=== PATIENT | male | born 1940 | race Caucasian/White ===

== ENCOUNTER → 2017-06-08 15:25 | Outpatient (CLI) | payer MEDICARE, OTHER, SELFPAY ==
--- NOTE | 2017-06-08 15:35 | RAD_ITS ---
STUDY: X-RAY - ABDOMEN/PELVIS REASON FOR EXAM: Male, 76 years old. Kidney stone. TECHNIQUE: Single AP view of the abdomen / pelvis. COMPARISON: None. FINDINGS: Cannot exclude small renal stones because of overlying fecal material, but no definite kidney stones are seen. Degenerative changes throughout the bones. Normal bowel gas pattern. Tortuous aorta with calcified plaque. RAD/Abdomen Single View IMPRESSION: No definite renal stones but small stones could be missed because of overlying fecal material and gas. Electronically Signed: Atif Brice MD at 14:24 EST , Service support ,
== END ==
PROVIDERS: Family Provider Family Medicine; PCP Family Medicine; Visit Provider Urology
DX: N20.0 Calculus of kidney (principal)
CPT/HCPCS: 74018

== ENCOUNTER 2017-06-18 12:44 | Emergency (ER) | payer MEDICARE, OTHER, SELFPAY ==
[2017-06-18 12:45] VITALS: BP 148/89; PULSE 87; RESP 16; TEMP 36.4; O2SAT 99; BMI 24.8
[2017-06-18] MEDS: Oxymetazoline 0.05% 1 SPRAY SPRAY.BTL 2 SPRAY NASAL (13:30)
--- NOTE | 2017-06-18 14:16 | ED.VISSUMM ---
- ER Visit Summary Date of Service: 06/18/17 Chief Complaint: [] Nosebleed History of Present Illness: The patient is a 76 M [] complaining of epistaxis beginning 1 hour ago. He reports 2 weeks of intermittent nosebleeds for unknown etiology. Does report he is on Coumadin for atrial fibrillation. No other complaints at this time. He reports losing minimal blood prior to arrival. Physical Examination: [] Afebrile, vital signs stable. Well-appearing elderly male in no acute distress. Cardiovascular exam reveals regular rate. Lungs were auscultation. Abdomen is soft and nontender. HEENT exam reveals slight dry blood in the right nares. Left nares unremarkable. Remainder of exam is unremarkable. Test Results: [] None. Emergency Department Course and Treatment: [] Patient had Afrin nasal packing applied immediately upon arrival. This was removed 15 minutes later. Patient was able to blow his nose without any further bleeding. He was observed for an additional hour with no further bleeding. At this time he will be discharged to follow-up with his primary care physician. Treatment Plan: [] Follow-up with PCP. Disposition: [] Discharge, stable. Impression: [] Epistaxis This note was generated with [employer] dictation software. It may contain incorrect words, spelling, and punctuation that were not noted in review of the chart prior to signing ED Disposition - Plan for ED Patient: Chief Complaint: Nosebleed Referrals: Apollo Arango MD [Primary Care Provider] -
--- NOTE | 2017-06-18 14:18 | ED.DEP ---
ED Disposition - Plan for ED Patient: Disposition: Home or Assisted Living Chief Complaint: Nosebleed Instructions: Nosebleed Referrals: Apollo Arango MD [Primary Care Provider] -
[2017-06-18 14:32] VITALS: BP 123/83; PULSE 76; RESP 16
== END 2017-06-18 14:33 | disposition home or self-care (01) ==
PROVIDERS: Emergency Provider Emergency Medicine; Family Provider Family Medicine; PCP Family Medicine
DX: R04.0 Epistaxis (principal); I25.10 Atherosclerotic heart disease of native coronary artery without angina pectoris; I48.91 Unspecified atrial fibrillation; Z79.01 Long term (current) use of anticoagulants; Z72.0 Tobacco use; Z87.442 Personal history of urinary calculi
CPT/HCPCS: 30901; 99282

== ENCOUNTER 2017-06-19 09:29 | Emergency (ER) | payer MEDICARE, OTHER, SELFPAY ==
[2017-06-19 09:30] VITALS: BP 124/71; PULSE 92; RESP 19; TEMP 36.1; BMI 24.3
--- NOTE | 2017-06-19 09:44 | ED.VISSUMM ---
- ER Visit Summary Date of Service: 06/19/17 Chief Complaint: Nosebleed History of Present Illness: The patient is a 76 M on Coumadin for atrial fibrillation who presents with epistaxis for 2 hours. Patient has been having intermittent epistaxis, mainly from the right nostril for the last 2 weeks. He was seen yesterday for the same complaint after 1 hour of bleeding. He required no packing or intervention yesterday, as the bleeding had stopped spontaneously. Patient had checked his INR at home yesterday and it was 2.7. His bleeding began this morning 2 hours prior to presentation. He denies any coughing, sneezing, picking his nose, blowing his nose, or other inciting factors. Upon questioning later, patient does think he may have blown his nose in retrospect. He does complain of some associated nausea and feels like he has been swallowing clots. Denies dizziness or lightheadedness. No shortness of breath or chest pain. Physical Examination: Vital signs: afebrile, hemodynamically stable, no hypoxia on room air General: well nourished, well developed, in no distress Skin: warm, dry, no rash, no pallor HEENT: normocephalic and atraumatic; PERRL, EOMI, moist mucous membranes the posterior oropharynx shows blood coming from the nasopharynx, patient has bilateral packing in his nostrils with small amount of blood soaked into them Cardiovascular: regular rate and rhythm without murmurs, no peripheral edema, 2+ pulses all distal extremities Test Results: [] Emergency Department Course and Treatment: Patient initially had denied any inciting factors for his bleeding, but then does think he blew his nose, and states he frequently blows his nose. INR was checked and was 2.3. Packing was removed and showed no active bleeding. No specific site of bleeding or clot was noted. Patient had no active bleeding noted in the posterior oropharynx once he swallowed the current blood that was visible. Bilateral nostrils were packed with cotton balls soaked in Afrin and lidocaine. Nose clamp was placed for 20 minutes. Reevaluation, no further bleeding was noted, and patient was given water to drink and to rinse his posterior oropharynx with. He had no further blood noted. However after drinking water, patient choked on the last drink which caused mild oozing of blood. He was reevaluated and there was mild oozing of blood from the superior region of the right nostril, although no specific area was identified as the source. There was no posterior hemorrhage noted. Because of the continued bleeding anytime he has any coughing, sneezing, choking or blowing his nose and that is on Coumadin, anterior packing was placed. Patient is to keep it in place until Wednesday at which time he is to follow-up with his doctor to have it removed. Patient stated tomorrow he will stop taking his Coumadin because of a procedure this being done this week. Patient will return if any return of bleeding that he cannot control with direct pressure after 30 minutes, at which time we discussed he may require posterior packing and admission. Patient agreed with this plan and was discharged with the packing in place. No antibiotics were written. Treatment Plan: [] Disposition: [] Impression: Right epistaxis inpatient on Coumadin This note was generated with [employer] dictation software. It may contain incorrect words, spelling, and punctuation that were not noted in review of the chart prior to signing ED Disposition - Plan for ED Patient: Disposition: Home or Assisted Living Chief Complaint: Nosebleed Instructions: Nosebleed, ED Nasal Packing Anterior Removable Referrals: Apollo Arango MD [Primary Care Provider] - 2 Days Additional Instructions: We attempted to stop your nosebleed using medications and temporary pressure/packing. Because the bleeding continued, nasal packing has been placed. Please leave this in place until Wednesday and follow-up with your doctor for reexamination and to have it removed. You were not prescribed antibiotics. If you are unable to see your doctor on Wednesday, you may follow-up with your ear nose throat doctor or return to the emergency department for removal of the packing. If you have any further thickened bleeding that is not controlled with pressure on your nose, these return to the emergency department immediately for another evaluation and treatment. You may have small amount of dripping of bloody fluid, which is normal since the packing is soaked in water. If you have any further concerns or worsening of your condition, please return immediately for another evaluation.
[2017-06-19 10:19] LABS: Hematocrit 43.3 % (40-54); Hemoglobin 13.9 g/dl (13.0-16.5); Mean Corp Hgb Conc 32.1 g/gl (32-36); Mean Corpuscular Hgb 29.9 pg (27.0-32.0); Mean Corpuscular Volume 93.1 fL (80-94); Mean Platelet Vol. 11.5 fl (6.2-12.0); Platelet Count 138 K/mm3 (150-450); RBC Distribution Width CV 15.5 % (11.6-14.6); RBC Distribution Width SD 51.7 fl (35.1-43.9); Red Blood Count 4.65 M/mm3 (4.6-6.2); Scan Indicated on CBC? Y/N NO; White Blood Count 10.9 K/mm3 (4.4-11.0)
[2017-06-19 10:25] LABS: International Normalized Ratio 2.3; Prothrombin Time (Protime)PT. 25.7 SECONDS (11.7-14.9)
--- NOTE | 2017-06-19 11:26 | DCINST.ED_ITS ---
ED Disposition - Plan for ED Patient: Disposition: Home or Assisted Living Chief Complaint: Nosebleed Instructions: Nosebleed, ED Nasal Packing Anterior Removable Referrals: Apollo Arango MD [Primary Care Provider] - 2 Days Additional Instructions: We attempted to stop your nosebleed using medications and temporary pressure/ packing. Because the bleeding continued, nasal packing has been placed. Please leave this in place until Wednesday and follow-up with your doctor for reexamination and to have it removed. You were not prescribed antibiotics. If you are unable to see your doctor on Wednesday, you may follow-up with your ear nose throat doctor or return to the emergency department for removal of the packing. If you have any further thickened bleeding that is not controlled with pressure on your nose, these return to the emergency department immediately for another evaluation and treatment. You may have small amount of dripping of bloody fluid, which is normal since the packing is soaked in water. If you have any further concerns or worsening of your condition, please return immediately for another evaluation.
--- NOTE | 2017-06-19 11:49 | NURSING ---
PT SAT UP TO BEDSIDE AND INITIALLY C/O DIZZINESS WHEN FIRST CAME IN. NO CHANGE IN BP OR HR. WATER GIVEN AND DC INSTUCTIONS AND PT DENIES ANY DIZZINESS NOW. AMB TO BR WITH STEADY GAIT AND STANDBY ASSISTANCE. MIN WELL. NO FURTHER BLEEDING. INSISTED THAT PT TAKE WC OUT FOR DC. ESCORTED TO ER ENTRANCE PER SAFETY ADMINISTRATOR
[2017-06-19 11:52] VITALS: BP 138/92; PULSE 74; RESP 18; O2SAT 95
== END 2017-06-19 11:53 | disposition home or self-care (01) ==
PROVIDERS: Emergency Provider Emergency Medicine; Family Provider Family Medicine; PCP Family Medicine
DX: R04.0 Epistaxis (principal); T45.515A Adverse effect of anticoagulants, initial encounter; Y92.9 Unspecified place or not applicable; I48.91 Unspecified atrial fibrillation; I10 Essential (primary) hypertension; Z79.01 Long term (current) use of anticoagulants; Z79.82 Long term (current) use of aspirin; Z79.899 Other long term (current) drug therapy
CPT/HCPCS: 30901; 36415; 85027; 85610; 99283

== ENCOUNTER 2017-06-22 16:42 | Emergency (ER) | payer MEDICARE, OTHER, SELFPAY ==
[2017-06-22 16:43] VITALS: BP 146/92; PULSE 79; RESP 16; TEMP 36.9; O2SAT 95; BMI 25.1
--- NOTE | 2017-06-22 18:12 | NURSING ---
DR WATERS PAGED
--- NOTE | 2017-06-22 18:27 | ED.VISSUMM ---
- ER Visit Summary Date of Service: 06/22/17 Chief Complaint: Spit out some blood-tinged saliva History of Present Illness: The patient is a 76 M recent nosebleeds for the last 3 weeks. Was on Coumadin and aspirin secondary to cardiac stents and A. fib. He had nasal packing in. From the emergency department on Wednesday. He was seen by Dr. Karishma Aguila today in the ENT office who then removed his packing. Reportedly caught him in a prescription but there was no prescription when he got to the pharmacy. He denies any nose bleeding today. Physical Examination: Signs are stable afebrile. H EENT exam nasal congestion bilaterally. Clear drainage. No blood in either naris. No active bleeding. No clots. Posterior pharynx there is very minimal blood-tinged drainage. But no active bleeding or clots. No trouble breathing or swallowing. Neck nontender. Lungs clear to auscultation. Heart regular rhythm. Abdomen soft nontender. Extremities unremarkable. Neurologic exam awake and alert. Test Results: Reviewed the patient's CBC and PT/INR from the other day. Emergency Department Course and Treatment: Spoke with Dr. Dalal and the patient be started on Zithromax Z-FRANK. Currently he is not actively bleeding. I do not think he needs to be repacked. Patient is comfortable with that plan. Treatment Plan: [] Disposition: dc Impression: Nosebleed resolved This note was generated with [employer] dictation software. It may contain incorrect words, spelling, and punctuation that were not noted in review of the chart prior to signing ED Disposition - Plan for ED Patient: Chief Complaint: Nosebleed Referrals: Apollo Arango MD [Primary Care Provider] -
--- NOTE | 2017-06-22 18:29 | ED.DEP ---
ED Disposition - Plan for ED Patient: Disposition: Home or Assisted Living Chief Complaint: Nosebleed Instructions: Nosebleed Prescriptions: Azithromycin [Zithromax Z-Reed] 250 mg PO UD #1 box Referrals: Apollo Arango MD [Primary Care Provider] - As Needed Additional Instructions: Return if nosebleed restarts. Or feeling worse.
[2017-06-22 19:47] VITALS: BP 133/75; PULSE 74; RESP 17; O2SAT 99
== END 2017-06-22 19:47 | disposition home or self-care (01) ==
PROVIDERS: Emergency Provider Emergency Medicine; Family Provider Family Medicine; PCP Family Medicine
DX: R04.0 Epistaxis (principal); I25.10 Atherosclerotic heart disease of native coronary artery without angina pectoris; I48.91 Unspecified atrial fibrillation; Z72.0 Tobacco use; Z79.01 Long term (current) use of anticoagulants; Z79.82 Long term (current) use of aspirin; Z79.899 Other long term (current) drug therapy; Z86.73 Personal history of transient ischemic attack (TIA), and cerebral infarction without residual deficits; Z85.828 Personal history of other malignant neoplasm of skin; Z95.5 Presence of coronary angioplasty implant and graft
CPT/HCPCS: 99282

== ENCOUNTER 2017-06-25 12:47 | Day surgery (SDC) | payer MEDICARE, OTHER, SELFPAY ==
[2017-06-23 10:13] VITALS: BP 113/73; PULSE 74; RESP 16; TEMP 36.7; O2SAT 95; BMI 24.5
--- NOTE | 2017-06-25 12:15 | RAD_ITS ---
STUDY: X-RAY - ABDOMEN/PELVIS REASON FOR EXAM: Male, 76 years old. Left-sided kidney stones. TECHNIQUE: Two AP supine views of the abdomen and pelvis. COMPARISON: Comparison is made with prior study dated June 08, 2017. FINDINGS: There is a moderate amount of colonic fecal material. There is evidence of a 5.8 mm calculus in the lower pole calyx of the left kidney. Atherosclerotic calcification of the abdominal aorta. There are diffuse degenerative changes of the visualized lumbar spine. RAD/Abdomen Single View IMPRESSION: 5.8 mm calculus in the lower pole calyx of the left kidney. Electronically Signed: Stef Carlton MD at 13:07 EST Tel [phone], Service support ,
[2017-06-25 13:08] VITALS: BP 88/54; PULSE 58; RESP 16; TEMP 36.6; O2SAT 100; BMI 24.5
[2017-06-25 13:11] LABS: Prothrombin Time Fingerstick 13.2 SEC (11.9-14.4)
[2017-06-25] MEDS: Ciprofloxacin 400 MG/200 ML BAG 200 MG IV (15:09)
--- NOTE | 2017-06-25 15:55 | PCM.DC.URO ---
Discharge Diet: Light diet - advance as tolerated Discharge Activity: Return to Normal Activity Call your doctor if your incision/area has: Continuous Slow Oozing, Sudden Increased Bleeding, Increased Pain/ Swelling, Increased Redness, Foul Smelling Discharge, Swelling at the incision site Allergies/Adverse Reactions: Allergies lactose Allergy (Severe, Verified 06/23/17 10:05) unknown Penicillins Allergy (Severe, Verified 06/23/17 10:05) Anaphylaxis adhesive Allergy (Verified 06/23/17 10:05) Rash Sulfa (Sulfonamide Antibiotics) Allergy (Verified 06/23/17 10:05) Unknown diazepam [From Valium] Adverse Reaction (Verified 06/23/17 10:05) hyper opposite effect desired HYPER OPPOSITE EFFECT DESIRED niacin [From Niaspan Extended-Release] Adverse Reaction (Verified 06/23/17 10:05) low bp LOW BP simvastatin Adverse Reaction (Verified 06/23/17 10:05) Pain in joints Medications to take at Discharge Acetaminophen/Diphenhydramine [Tylenol Pm Ex-Strength Caplet] 500 mg PO QHS 06/18/17 Amlodipine [Norvasc] 5 mg PO DAILY 06/18/17 Aspirin 81 mg PO DAILY 06/18/17 Atorvastatin Calcium [Lipitor] 40 mg PO QHS 06/18/17 Cholecalciferol (Vitamin D3) [Vitamin D3] 1 tab PO DAILY 06/18/17 Cyanocobalamin [Vitamin B12] 1 tab PO DAILY 06/18/17 Donepezil HCl 5 mg PO DAILY 06/18/17 Melatonin 10 mg PO QHS 06/18/17 Metoprolol Tartrate 25 mg PO BID 06/18/17 Omeprazole 20 mg PO DAILY 06/18/17 Pregabalin [Lyrica] 300 mg PO DAILY 06/18/17 Sertraline HCl [Zoloft] 50 mg PO BID 06/18/17 Vit A/Vit C/Vit E/Zinc/Copper [Preservision Areds Softgel] 1 each PO BID 06/18/17 Warfarin [Coumadin ([facility])] 2 - 2.5 mg PO DAILY 06/18/17 Azithromycin [Zithromax] 250 mg PO DAILY 06/23/17 Hydrocodone/Acetaminophen [Platina 5-325 Tablet] 1 ea PO Q4H PRN PRN 5 Days #14 tab 06/25/17 The following prescriptions were given: Hydrocodone/Acetaminophen [Platina 5-325 Tablet] 1 ea PO Q4H PRN PRN 5 Days #14 tab PRN Reason: Pain Primary Care Physician: Apollo Arango MD [Primary Care Provider] - Please Follow Up With: Harrison Rendon MD When: in 2 weeks, please call to make an appointment.
--- NOTE | 2017-06-25 15:58 | PCM.OPRPT ---
Report of Operation Date of Procedure: 06/25/17 Pre-Operative Diagnosis: Gross hematuria and left renal calculi multiple Post-Operative Diagnosis: Same Surgery/Procedure Performed:: Flexible cystoscopy and left extracorporeal shockwave lithotripsy Description of Surgical Findings:: 76-year-old male was taken back to the operating room after smooth induction of general anesthesia he was placed supine on the table. Penis and testicles were prepped and draped in usual sterile fashion went in the bladder with a ureteroscope. The entire length of the urethra is normal. The prostate was normal. 18 [place] flexible, the prostate had a prior resection wide open. Inside the bladder no tumors or stones. No blood was seen. The bladder was then drained we then positioned the patient for treatment of the kidney stones in the left side the stones are blasted with shockwave lithotripsy of multiple stones each was biopsied one of the time at the end of the treatment stone broke up really well no stent was placed patient anesthetic was reversed to give a total of 3000 shockwaves the left kidney and targeted multiple stones. The patient will follow up in the office with a KUB in several weeks. Type of Anesthesia:: General - Admit VTE Documentation VTE Present on Admission: No VTE Mechan Device Prophylaxis: SCD's VTE Pharm Prophylaxis ordered?: No Reason prophylaxis not ordered:: Treatment Not Indicated
[2017-06-25 16:05] VITALS: BP 113/73; BP 128/74; PULSE 63; RESP 16; TEMP 36.2; O2SAT 89
[2017-06-25 16:15] VITALS: BP 113/73; BP 133/67; PULSE 81; RESP 18; O2SAT 96
[2017-06-25 16:30] VITALS: BP 113/73; BP 139/86; PULSE 75; RESP 16; O2SAT 98
[2017-06-25 16:37] VITALS: BP 113/73; BP 146/85; PULSE 73; RESP 18; TEMP 36.3; O2SAT 94
--- NOTE | 2017-06-25 17:08 | PCM.PACRNU ---
Pacer Nurse Hospital Visit Notes: Dual Chamber Pacemaker reprogramming Pre-op: Programmed gaye pacing to VVI @ 60ppm for Lithotripsy procedure. Dual Chamber Pacemaker reprogramming Post-op: Reprogrammed PPM to original settings. Lead impedances, sensing and pace/sense thresholds remain stable. Counters cleared. Next f/u appt scheduled for in 3 mos. Faheem Jaime RN - Pacer Check Procedure Procedures: 06600 PM Eval Dual - Pacemaker reprogramming preop and postop
[2017-06-25 17:35] VITALS: BP 113/73
== END 2017-06-25 17:41 | disposition home or self-care (01) ==
LOC: SDC 12:48 → AC 12:49
PROVIDERS: Family Provider Family Medicine; PCP Family Medicine; Visit Provider Urology
PROC: (CPT 50590; principal; 2017-06-25 14:40)
DX: N20.0 Calculus of kidney (principal); R31.0 Gross hematuria; N40.1 Benign prostatic hyperplasia with lower urinary tract symptoms; N39.41 Urge incontinence; N13.8 Other obstructive and reflux uropathy; R35.0 Frequency of micturition; R33.8 Other retention of urine; R39.12 Poor urinary stream; Q63.8 Other specified congenital malformations of kidney; I13.0 Hypertensive heart and chronic kidney disease with heart failure and stage 1 through stage 4 chronic kidney disease, or unspecified chronic kidney disease; I50.9 Heart failure, unspecified; N18.4 Chronic kidney disease, stage 4 (severe); I25.10 Atherosclerotic heart disease of native coronary artery without angina pectoris; I48.91 Unspecified atrial fibrillation; E78.00 Pure hypercholesterolemia, unspecified; G60.9 Hereditary and idiopathic neuropathy, unspecified; G47.00 Insomnia, unspecified; I73.9 Peripheral vascular disease, unspecified; M06.9 Rheumatoid arthritis, unspecified; I05.0 Rheumatic mitral stenosis; F32.9 Major depressive disorder, single episode, unspecified; F41.9 Anxiety disorder, unspecified; Z79.01 Long term (current) use of anticoagulants; Z79.82 Long term (current) use of aspirin; Z79.899 Other long term (current) drug therapy; F17.200 Nicotine dependence, unspecified, uncomplicated; I25.2 Old myocardial infarction; Z86.73 Personal history of transient ischemic attack (TIA), and cerebral infarction without residual deficits; Z86.718 Personal history of other venous thrombosis and embolism; Z87.440 Personal history of urinary (tract) infections; Z87.442 Personal history of urinary calculi; Z85.828 Personal history of other malignant neoplasm of skin; Z95.5 Presence of coronary angioplasty implant and graft; Z95.0 Presence of cardiac pacemaker
CPT/HCPCS: 50590; 36416; 74018; 85610; J3010; J7120; J0744; J2405

== ENCOUNTER → 2017-07-22 10:49 | Outpatient (CLI) | payer MEDICARE, OTHER, SELFPAY ==
--- NOTE | 2017-07-22 10:50 | RAD_ITS ---
STUDY: X-RAY - ABDOMEN/PELVIS REASON FOR EXAM: Male, 76 years old. Abdominal pain TECHNIQUE: 2 views COMPARISON: None. FINDINGS: There is an unremarkable bowel gas pattern. There is no demonstrated free abdominal air. Surgical clips in the right upper quadrant. Normal soft tissue structures. Degenerative vertebral changes and slight scoliosis. RAD/Abdomen Single View IMPRESSION: No sign of bowel obstruction. Electronically Signed: Ras Cheung DO at 23:53 EDT Tel [phone], Service support ,
== END ==
PROVIDERS: Family Provider Family Medicine; PCP Family Medicine; Visit Provider Urology
DX: N20.0 Calculus of kidney (principal)
CPT/HCPCS: 74018

== ENCOUNTER → 2017-09-02 15:24 | Outpatient (CLI) | payer MEDICARE, OTHER, SELFPAY ==
--- NOTE | 2017-09-02 15:30 | RAD_ITS ---
STUDY: X-RAY CHEST REASON FOR EXAM: Male, 76 years old. Chest pain TECHNIQUE: Frontal and lateral views of the chest. COMPARISON: 03/15/2017 FINDINGS: Dual-chamber pacemaker on the left. The lungs are clear and expanded. There is no demonstrated pleural abnormality. Normal size heart. Normal mediastinum and elis. Normal visualized pulmonary arteries. Normal visualized aortic arch and descending thoracic aorta. Normal visualized thoracic spine. Normal visualized ribs, clavicles, and shoulders. Abdominal clips. RAD/Chest PA and Lateral IMPRESSION: No acute pulmonary findings. Electronically Signed: Jose Miguel Aranda MD at 6:09 EDT Tel , Service support ,
== END ==
PROVIDERS: Family Provider Family Medicine; PCP Family Medicine; Visit Provider Nurse Practitioner Acute Care
DX: R05 Cough (principal)
CPT/HCPCS: 71046

== ENCOUNTER → 2017-09-14 09:59 | Outpatient (CLI) | payer MEDICARE, OTHER, SELFPAY ==
--- NOTE | 2017-09-14 10:03 | RAD_ITS ---
STUDY: X-RAY CHEST REASON FOR EXAM: Male, 76 years old. Chest pain. Shortness of breath and dyspnea. TECHNIQUE: PA and lateral views of the chest. COMPARISON: Comparison is made with prior study dated September 02, 2017. FINDINGS: Hyperinflation. Scattered calcified granulomas. There is no demonstrated pleural abnormality. Normal size heart. A left-sided dual-chamber pacemaker is seen. Normal mediastinum and elis. Normal visualized pulmonary arteries. There is atherosclerotic calcification of the aortic arch with tortuosity. There are degenerative changes of the visualized thoracic spine. Normal visualized ribs, clavicles, and shoulders. There is no demonstrated abnormality of the visualized soft tissue structures of the upper abdomen. RAD/Chest PA and Lateral IMPRESSION: Hyperinflation. Electronically Signed: Stef Carlton MD at 11:14 EDT Tel [phone], Service support ,
== END ==
PROVIDERS: Family Provider Family Medicine; PCP Family Medicine; Visit Provider Nurse Practitioner Acute Care
DX: R06.02 Shortness of breath (principal)
CPT/HCPCS: 71046

== ENCOUNTER 2017-10-20 12:49 | Emergency (ER) | payer MEDICARE, OTHER, SELFPAY ==
[2017-10-20 12:50] VITALS: BP 122/75; PULSE 90; RESP 18; TEMP 36.5; O2SAT 98; BMI 25.9
[2017-10-20 13:37] LABS: Absolute Lymphocyte Count 1.58 X10^3/ul (0.83-4.51); Absolute Neutrophil Count 5.4 X10^3/uL (2.0-7.7); Basophil# 0.03 X10^3/uL; Basophil% 0.4 % (0-1); Eosinophil# 0.12 X10^3/uL; Eosinophils% 1.5 % (0-5); Hematocrit 41.5 % (40-54); Hemoglobin 12.7 g/dl (13.0-16.5); Lymphocyte # 1.58 X10^3/ul (4.0); Lymphocyte % 20.1 % (19-41); Mean Corp Hgb Conc 30.6 g/gl (32-36); Mean Corpuscular Hgb 27.5 pg (27.0-32.0); Mean Platelet Vol. 11.8 fl (6.2-12.0); Monocyte# 0.73 X10^3/uL; Monocyte% 9.3 % (0-10); Neutrophil # 5.39 X10^3/uL (2.7-7.7); Neutrophil % 68.6 % (47-70); Platelet Count 152 K/mm3 (150-450); RBC Distribution Width CV 17.9 % (11.6-14.6); RBC Distribution Width SD 59.4 fl (35.1-43.9); Red Blood Count 4.61 M/mm3 (4.6-6.2); White Blood Count 7.9 K/mm3 (4.4-11.0)
[2017-10-20 13:38] LABS: POSITIVE COUNT NO; POSITIVE DIFFERENTIAL NO; POSITIVE MORPHOLOGY NO
[2017-10-20 13:48] LABS: Anion Gap 7 (5-15); BUN 23 mg/dL (7-18); BUN/Creat Ratio 16.7 RATIO (10-20); Calcium,Total 8.3 mg/dL (8.5-10.1); Chloride 112 mmol/L (98-107); Creatinine, Serum 1.38 mg/dL (0.70-1.30); EST Glomerular Filtration Rate 53 mL/min (>60); Est Glom Filt Rate - Afr Amer 64 mL/min (>60); Estimated Creatinine Clearance 45.55 ml/min; Glucose 103 mg/dL (74-106); Partial Thromboplast Time 37.7 Seconds (24.1-36.2); Potassium 4.4 mmol/L (3.5-5.1); Sodium Level 145 mmol/L (136-145)
[2017-10-20 14:12] LABS: D-Dimer Quantitative (DVT/PE) 2.42 FEU/ug/m (0.27-0.49)
[2017-10-20 14:28] LABS: International Normalized Ratio 1.7; Prothrombin Time (Protime)PT. 20.4 SECONDS (11.7-14.9)
--- NOTE | 2017-10-20 15:24 | ED.VISSUMM ---
- ER Visit Summary Date of Service: 10/20/17 Chief Complaint: [Swelling right leg] History of Present Illness: The patient is a 76 M [presents to the emergency department with complaint of swelling to his right leg that started yesterday. Patient denies any trauma. Patient denies any chest pain or shortness of breath. Patient states that he is on Coumadin normally however 2 days ago he discontinued it because he scheduled in 2 days to have a spinal injection. Patient denies recent travel or surgery. Patient does have a history of remote DVT many years ago. Patient has history of hypertension coronary artery disease.] Physical Examination: [HEENT-PERRLA, EOMI. Cranial nerves II through XII grossly intact. TMs clear. Mucous membranes moist. No adenopathy. Cardiovascular-regular rate and rhythm without murmur or ectopy Lungs-clear to auscultation, chest wall stable without crepitus or subcu emphysema Abdomen-normoactive bowel sounds, soft, nontender, no rebound or rigidity, no peritoneal signs. Extremities-intact ?4, normal range of motion, normal pulses, atraumatic]. Right leg-patient has some diffuse soft tissue swelling about the right calf and the foot. There is minimal faint erythema of the calf and right lower extremity down to the foot. No lymphangitic streaking noted. Patient does have a positive Homans sign. No ropes or cords palpated. Patient has normal dorsal pedal and posterior tibial pulses as well as popliteal pulses. Test Results: [CBC with differential obtained showed normal white count 7.9, hemoglobin 12.7, hematocrit 41, platelets 152. Chemistries unremarkable. D-dimer was 2.42 and his INR was 1.7.] Emergency Department Course and Treatment: [I am unable to obtain a venous Doppler of the patient's extremity today due to the fact that it is not available. Patient was given 1 dose of Xarelto in the emergency department and he will reschedule his spinal injections.] Treatment Plan: [Plan is to have patient return tomorrow to have a venous Doppler of his right lower extremity]. I will also start patient on Keflex empirically as it is unclear the etiology of his faint erythema and it is possible he may be developing an early cellulitis. Disposition: [Discharged home in stable condition.] Impression: [Right leg swelling] This note was generated with [employer] dictation software. It may contain incorrect words, spelling, and punctuation that were not noted in review of the chart prior to signing ED Disposition - Plan for ED Patient: Chief Complaint: Edema Referrals: Apollo Arango MD [Primary Care Provider] -
--- NOTE | 2017-10-20 15:27 | ED.DCSUM_ITS ---
- ER Visit Summary Date of Service: 10/20/17 Chief Complaint: [Swelling right leg] History of Present Illness: The patient is a 76 M [presents to the emergency department with complaint of swelling to his right leg that started yesterday. Patient denies any trauma. Patient denies any chest pain or shortness of breath. Patient states that he is on Coumadin normally however 2 days ago he discontinued it because he scheduled in 2 days to have a spinal injection. Patient denies recent travel or surgery. Patient does have a history of remote DVT many years ago. Patient has history of hypertension coronary artery disease.] Physical Examination: [HEENT-PERRLA, EOMI. Cranial nerves II through XII grossly intact. TMs clear. Mucous membranes moist. No adenopathy. Cardiovascular-regular rate and rhythm without murmur or ectopy Lungs-clear to auscultation, chest wall stable without crepitus or subcu emphysema Abdomen-normoactive bowel sounds, soft, nontender, no rebound or rigidity, no peritoneal signs. Extremities-intact ?4, normal range of motion, normal pulses, atraumatic]. Right leg-patient has some diffuse soft tissue swelling about the right calf and the foot. There is minimal faint erythema of the calf and right lower extremity down to the foot. No lymphangitic streaking noted. Patient does have a positive Homans sign. No ropes or cords palpated. Patient has normal dorsal pedal and posterior tibial pulses as well as popliteal pulses. Test Results: [CBC with differential obtained showed normal white count 7.9, hemoglobin 12.7, hematocrit 41, platelets 152. Chemistries unremarkable. D- dimer was 2.42 and his INR was 1.7.] Emergency Department Course and Treatment: [I am unable to obtain a venous Doppler of the patient's extremity today due to the fact that it is not available. Patient was given 1 dose of Xarelto in the emergency department and he will reschedule his spinal injections.] Treatment Plan: [Plan is to have patient return tomorrow to have a venous Doppler of his right lower extremity]. I will also start patient on Keflex empirically as it is unclear the etiology of his faint erythema and it is possible he may be developing an early cellulitis. Disposition: [Discharged home in stable condition.] Impression: [Right leg swelling] This note was generated with [employer] dictation software. It may contain incorrect words, spelling, and punctuation that were not noted in review of the chart prior to signing ED Disposition - Plan for ED Patient: Chief Complaint: Edema Referrals: Apollo Arango MD [Primary Care Provider] -
--- NOTE | 2017-10-20 15:27 | ED.DEP ---
ED Disposition - Plan for ED Patient: Chief Complaint: Edema Instructions: ED Leg Swelling Unilateral Prescriptions: Cephalexin [Keflex] 500 mg PO Q6 #40 cap Referrals: Apollo Arango MD [Primary Care Provider] - 3-5 Days Additional Instructions: return tomorrow for leg ultrasound
[2017-10-20] MEDS: Cephalexin 250 MG Capsule 500 MG PO (16:09)
[2017-10-20] MEDS: Rivaroxaban 20 MG Tablet PO (16:09)
[2017-10-20 16:25] VITALS: BP 158/77; PULSE 78; RESP 16; O2SAT 99
== END 2017-10-20 16:26 | disposition home or self-care (01) ==
LOC: ED 13:16
PROVIDERS: Emergency Provider Emergency Medicine; Family Provider Family Medicine; PCP Family Medicine
DX: M79.89 Other specified soft tissue disorders (principal); I25.10 Atherosclerotic heart disease of native coronary artery without angina pectoris; I10 Essential (primary) hypertension; Z72.0 Tobacco use; Z79.01 Long term (current) use of anticoagulants; Z79.899 Other long term (current) drug therapy; Z86.718 Personal history of other venous thrombosis and embolism; Z95.5 Presence of coronary angioplasty implant and graft
CPT/HCPCS: 80048; 85025; 85379; 85610; 85730; 99284

== ENCOUNTER → 2017-10-21 11:17 | Outpatient (CLI) | payer MEDICARE, OTHER, SELFPAY ==
--- NOTE | 2017-10-21 11:21 | VDLE_ITS ---
Reason For Study: LEG PAIN AND SWELLING RIGHT LEFT GSV is normal. CFV is compressible, spontaneous, phasic, CFV is compressible, spontaneous, phasic, competent, and demonstrates normal competent and demonstrates normal augmentation. augmentation. FV is compressible, spontaneous, phasic, competent and demonstrates normal augmentation. POP V is compressible, spontaneous, phasic, competent and demonstrates normal augmentation. T/P Trunk is compressible. PTV is compressible. RT PerV is compressible. Heterogenous structure RLE extending from medial pop space to mid calf. Measures 3.5 x 1.6 cm in transverse view. Non-vascular. Procedure Exam performed in department. A preliminary report was called and/or faxed to Dr. Arango. Interpretation Summary Deep veins of the right lower extremity are patent and compressible segmentally. There is no evidence of right lower extremity deep vein thrombosis. Valvular competence appears intact within the proximal deep venous system on the right . The right greater saphenous vein appears patent and compressible segmentally. A non-vascular, heterogeneous structure is noted in the right medial popliteal space extending to the right mid-calf, and measuring 3.5 cm x 1.6 cm in transverse dimension. This may represent a popliteal cyst. Clinical correlation is advised. Ordering Physician: Meena Mckinley Referring Physician: Apollo Arango Performed By: Tamra Latham RVT
== END ==
PROVIDERS: Family Provider Family Medicine; PCP Family Medicine; Visit Provider Emergency Medicine
DX: M79.89 Other specified soft tissue disorders (principal)
CPT/HCPCS: 93971

== ENCOUNTER → 2017-10-25 12:01 | Outpatient (CLI) | payer MEDICARE, OTHER, SELFPAY ==
--- NOTE | 2017-10-25 12:04 | RAD_ITS ---
STUDY: X-RAY - RIGHT KNEE REASON FOR EXAM: Male, 77 years old. Atraumatic knee pain and swelling. TECHNIQUE: 3 view(s) of the knee. COMPARISON: None. FINDINGS: There is generalized osteopenia. Normal visualized distal femur. Normal visualized proximal tibia and fibula. Normal proximal tibiofibular articulation. There is mild arthrosis of the medial compartment. Normal lateral femorotibial compartment. Normal patellofemoral articulation. The soft tissue structures are unremarkable. RAD/Knee 3 Views IMPRESSION: Osteopenia with mild medial compartmental arthrosis. Electronically Signed: Mendoza Chavez MD at 17:26 EDT , Service support ,
== END ==
PROVIDERS: Family Provider Family Medicine; PCP Family Medicine; Visit Provider Family Medicine
DX: M25.561 Pain in right knee (principal)
CPT/HCPCS: 73562

== ENCOUNTER → 2017-11-01 15:59 | Outpatient (CLI) | payer MEDICARE, OTHER, SELFPAY ==
--- NOTE | 2017-11-01 16:22 | VDLE_ITS ---
Reason For Study: Leg Mass RIGHT LEFT GSV is normal. CFV is compressible, spontaneous, phasic, CFV is compressible, spontaneous, phasic, competent, and demonstrates normal competent and demonstrates normal augmentation. augmentation. FV is compressible, spontaneous, phasic, competent and demonstrates normal augmentation. POP V is compressible, spontaneous, phasic, competent and demonstrates normal augmentation. T/P Trunk is compressible. PTV is compressible. RT PerV is compressible. Heterogenous, non vascular structure noted RLE extending from medial pop space to mid calf measuring 2.74cm x 4.56cm. Procedure Exam performed in department. A preliminary report was called and/or faxed to Dr. Arango. Interpretation Summary Deep veins of the right lower extremity are patent and compressible segmentally. There is no evidence of right lower extremity deep vein thrombosis. Valvular competence appears intact within the proximal deep venous system on the right . The right greater saphenous vein appears patent and compressible segmentally. A non-vascular, heterogeneous structure is noted in the right medial popliteal space, extending to the right mid-calf, measuring 2.74 cm x 4.56 cm. This may represent a hematoma or ruptured popliteal cyst. Clinical correlation is advised. Ordering Physician: Apollo Arango Referring Physician: Apollo Arango Performed By: Marisela Bowers, RDCS, RVT
== END ==
PROVIDERS: Family Provider Family Medicine; PCP Family Medicine; Visit Provider Family Medicine
DX: R22.41 Localized swelling, mass and lump, right lower limb (principal)
CPT/HCPCS: 93971

== ENCOUNTER → 2017-11-04 13:05 | Outpatient (CLI) | payer MEDICARE, OTHER, SELFPAY ==
--- NOTE | 2017-11-04 13:09 | CT_ITS ---
PROCEDURE: CT LOWER EXTREMITY RIGHT TIBIA/FIBULA WITH CONTRAST REASON FOR EXAM: Male, 77 years old. Right mid calf swelling, pain TECHNIQUE: Transaxial CT imaging of the tibia/fibula was performed post contrast administration. The examination was performed with intravenous administration of 100 ml of Isovue 300 contrast material. Sagittal and coronal images were reconstructed. COMPARISON: None. FINDINGS: Normal tibia and fibula, without a periosteal, cortical or cancellous marrow abnormality. There is mild cutaneous edema of the lower leg. Mild effusion at the knee. Possible complex Grover's cyst measuring 5.8 x 2.5 cm with thickened wall. There is a 4.2 x 15.1 cm intramuscular collection noted along the longitudinal axis of the medial head of the gastrocnemius. A smaller intramuscular collection is also noted of the soleus measuring 1.6 cm extending 6.5 cm in the craniocaudal distance. Both collections that are slightly thickened possibly enhancing rim. Complex hematomas or abscesses cannot be excluded. CT/Extremity Lower WITH Contrast IMPRESSION: Mild effusion of the knee. Possible Grover's cyst. Intramuscular collections are noted within the medial head of the gastrocnemius and soleus possibly representing complex hematomas or abscesses. Electronically Signed: Ras Cheung DO at 22:00 EDT Tel [phone], Service support ,
== END ==
PROVIDERS: Family Provider Family Medicine; PCP Family Medicine; Visit Provider Family Medicine
DX: R22.40 Localized swelling, mass and lump, unspecified lower limb (principal)
CPT/HCPCS: 73701; Q9967

== ENCOUNTER → 2017-11-08 16:37 | Outpatient (CLI) | payer MEDICARE, OTHER, SELFPAY ==
--- NOTE | 2017-11-08 16:42 | CT_ITS ---
STUDY: CT ABDOMEN AND PELVIS WITH CONTRAST REASON FOR EXAM: Male, 77 years old. Abdominal pain. RADIATION DOSAGE (If Supplied By Facility): CTDIvol = ( 14.83 ) mGy, DLP = ( 1139.55 ) mGycm TECHNIQUE: Transaxial images were obtained from the dome of the diaphragm to the symphysis pubis without oral contrast. 75ML ml of Isovue 300 contrast was administered. Sagittal and coronal images were reconstructed. Individualized dose optimization techniques were used for this CT. COMPARISON: May 31, 2014 FINDINGS: The visualized lung bases are unremarkable. The visualized portions of the heart are within normal limits. Normal liver. There are surgical clips in the gallbladder fossa consistent with a prior cholecystectomy. Normal spleen. There is diffuse atrophy of the pancreas. Normal bilateral adrenal glands. Stable nonenhancing right renal cysts. Stable severe atrophy of the left kidney. Normal visualized stomach. Normal small intestine. There are multiple colonic diverticula consistent with diverticulosis. There is non-visualization of the appendix. There is diffuse atherosclerotic calcification of the abdominal aorta, without a demonstrated aneurysm. Normal inferior vena cava. Normal retroperitoneum. Normal urinary bladder. Normal visualized prostate gland. Normal abdominal wall. There are diffuse degenerative changes of the visualized lumbar spine. CT/Abdomen/Pelvis WITH Contrast IMPRESSION: No acute findings. Status post cholecystectomy, appendectomy. Severe atrophy of the left kidney is again noted. No evidence of small bowel obstruction. Electronically Signed: Tyler Sharp DO at 19:08 EDT Tel , Service support ,
--- NOTE | 2017-11-08 16:43 | CT_ITS ---
STUDY: CT RIGHT FEMUR WITH CONTRAST REASON FOR EXAM: Male, 77 years old. Pain in the right groin RADIATION DOSAGE (If Supplied By Facility): CTDIvol = ( 14.83 ) mGy, DLP = ( 1139.55 ) mGycm TECHNIQUE: Transaxial CT imaging of the femur was performed post contrast administration. The examination was performed with intravenous administration of 75ml ml of Isovue 300 contrast material. Sagittal and coronal images were reconstructed. Individualized dose optimization techniques were used for this CT. COMPARISON: None. FINDINGS: Normal visualized femur. No evidence of inguinal hernia. There is no enhancing abnormality. CT/Extremity Lower WITH Contrast IMPRESSION: No acute findings. No evidence of inguinal hernia. No suspicious lymphadenopathy in the right inguinal region Electronically Signed: Tyler Sharp DO at 19:10 EDT Tel , Service support ,
[2017-11-08 17:33] LABS: Absolute Lymphocyte Count 1.78 X10^3/ul (0.83-4.51); Absolute Neutrophil Count 6.4 X10^3/uL (2.0-7.7); Basophil# 0.03 X10^3/uL; Basophil% 0.3 % (0-1); Eosinophil# 0.16 X10^3/uL; Eosinophils% 1.7 % (0-5); Hematocrit 40.8 % (40-54); Hemoglobin 12.8 g/dl (13.0-16.5); Lymphocyte # 1.78 X10^3/ul (4.0); Lymphocyte % 18.9 % (19-41); Mean Corp Hgb Conc 31.4 g/gl (32-36); Mean Corpuscular Hgb 28.1 pg (27.0-32.0); Mean Corpuscular Volume 89.5 fL (80-94); Mean Platelet Vol. 10.9 fl (6.2-12.0); Monocyte# 1.03 X10^3/uL; Monocyte% 10.9 % (0-10); Neutrophil # 6.43 X10^3/uL (2.7-7.7); Neutrophil % 68.1 % (47-70); Platelet Count 217 K/mm3 (150-450); RBC Distribution Width CV 17.8 % (11.6-14.6); RBC Distribution Width SD 58.6 fl (35.1-43.9); Red Blood Count 4.56 M/mm3 (4.6-6.2); White Blood Count 9.4 K/mm3 (4.4-11.0)
[2017-11-08 17:52] LABS: Anion Gap 6 (5-15); BUN 23 mg/dL (7-18); BUN/Creat Ratio 13.9 RATIO (10-20); Calcium,Total 8.9 mg/dL (8.5-10.1); Chloride 109 mmol/L (98-107); Creatinine, Serum 1.66 mg/dL (0.70-1.30); EST Glomerular Filtration Rate 43 mL/min (>60); Est Glom Filt Rate - Afr Amer 52 mL/min (>60); Glucose 95 mg/dL (74-106); Potassium 3.9 mmol/L (3.5-5.1); Sodium Level 143 mmol/L (136-145)
[2017-11-08 17:58] LABS: POSITIVE COUNT NO; POSITIVE DIFFERENTIAL NO; POSITIVE MORPHOLOGY NO
[2017-11-08 18:02] LABS: International Normalized Ratio 1.4; Prothrombin Time (Protime)PT. 17.4 SECONDS (11.7-14.9)
[2017-11-08 18:03] LABS: Partial Thromboplast Time 36.1 Seconds (24.1-36.2)
[2017-11-08 19:03] LABS: Erythrocyte Sedimentation Rate 24 mm/hr (0-20)
== END ==
PROVIDERS: Family Provider Family Medicine; PCP Family Medicine; Visit Provider Internal Medicine
DX: M79.89 Other specified soft tissue disorders (principal); M79.661 Pain in right lower leg; R10.31 Right lower quadrant pain
CPT/HCPCS: 73701; 74177; 80048; 85025; 85610; 85652; 85730; Q9967

== ENCOUNTER → 2017-12-09 06:26 | Outpatient (CLI) | payer MEDICARE, OTHER, SELFPAY | PROVIDERS: Family Provider Internal Medicine; PCP Internal Medicine; Visit Provider Internal Medicine | DX: S80.11XS Contusion of right lower leg, sequela (principal); X58.XXXS Exposure to other specified factors, sequela; M79.89 Other specified soft tissue disorders | CPT/HCPCS: 73700 ==

== ENCOUNTER → 2017-12-17 12:19 | Outpatient (CLI) | payer MEDICARE, OTHER, SELFPAY ==
[2017-12-17 12:47] VITALS: PULSE 100; PULSE 87; PULSE 90; PULSE 91; PULSE 98; O2SAT 90; O2SAT 91; O2SAT 93; O2SAT 95; O2SAT 97
--- NOTE | 2017-12-20 10:00 | PCM.PSN.6M ---
PSN 6 Minute Walk Test - 6 Minute Walk Test 6 Minute Walk Test: 6 Minute Walk Test PSN:6-Minute Walk Test Start: 12/17/17 12:47 Freq: Status: Active Protocol: RESP.6MINW Document 12/17/17 12:47 MAYTE (Rec: 12/17/17 12:49 MAYTE [id number]) 6 Minute Walk Test Date Performed 12/17/17 Time Performed 12:30 Height 5 ft 10 in Weight: 180 lb Weight in Pounds 180.[address]: Howie Parikh Assistive device used: Cane Pre-test Oxygen Delivery Method Room Air Pulse Ox (%) 93 Pulse Rate (60-100 beats/min) 87 Dyspnea Sujata Scale (0-10) 0 Exertion Sujata Scale (6-20) 6 1st minute Oxygen Delivery Method Room Air Pulse Ox (%) 93 Pulse Rate (60-100 beats/min) 90 2nd minute Oxygen Delivery Method Room Air Pulse Ox (%) 91 Pulse Rate (60-100 beats/min) 91 3rd minute Oxygen Delivery Method Room Air Pulse Ox (%) 90 Pulse Rate (60-100 beats/min) 98 4th minute Oxygen Delivery Method Room Air Pulse Ox (%) 93 Pulse Rate (60-100 beats/min) 100 5th minute Oxygen Delivery Method Room Air Pulse Ox (%) 95 Pulse Rate (60-100 beats/min) 100 6th minute Oxygen Delivery Method Room Air Pulse Ox (%) 95 Pulse Rate (60-100 beats/min) 100 Dyspnea Sujata Scale (0-10) 2 Exertion Sujata Scale (6-20) 13 Post-test Oxygen Delivery Method Room Air Pulse Ox (%) 97 Pulse Rate (60-100 beats/min) 91 Full Laps Walked 18 Partial Lap, Number of Tiles Walked 0 Total Distance Walked (ft) 1062 - Interpretation Interpretation: The patient ambulated 1062 feet over the course of 6 minutes beginning on room air without assistive devices or breaks. Pretesting oxygen saturation was noted to be 93% on room air. With ambulation, the aarti oxygen saturation was 90%. There was no significant exertional oxygen desaturation. - Recommendations Recommendations: There is no indication for the use of supplemental oxygen at this time.
== END ==
PROVIDERS: Family Provider Internal Medicine; PCP Internal Medicine; Visit Provider Internal Medicine Critical Care Medicine
DX: J44.9 Chronic obstructive pulmonary disease, unspecified (principal)
CPT/HCPCS: 94618

== ENCOUNTER 2018-01-21 23:08 | Inpatient (IN) | payer MEDICARE, OTHER, SELFPAY ==
[2018-01-21 23:08] VITALS: BP 119/57; PULSE 67; RESP 16; TEMP 38.6; O2SAT 88; O2SAT 94; BMI 25.2
[2018-01-21] MEDS: 0.9% Normal Saline 1,000 ML 999 ML IV (23:15)
--- NOTE | 2018-01-21 23:26 | EKG12_ITS ---
Test Reason : Blood Pressure : / mmHG Vent. Rate : 068 BPM Atrial Rate : 068 BPM P-R Int : 148 ms QRS Dur : 138 ms QT Int : 408 ms P-R-T Axes : 047 -78 -01 degrees QTc Int : 433 ms Sinus rhythm with occasional ventricular-paced complexes Left axis deviation Right bundle branch block Abnormal ECG Confirmed by ALDEN HANEY, MILDRED ([id number]), telegraph editor GUERITA ONEILL ([id number]) on 01/24/2018 2:56:39 PM Referred By: GERARDO Confirmed By:MILDRED RUANO MD
[2018-01-21 23:43] VITALS: BP 122/48; PULSE 733; RESP 18; O2SAT 91; O2SAT 92
[2018-01-21] MEDS: Acetaminophen 500 MG Tablet 1000 MG PO (23:44)
[2018-01-21 23:46] LABS: International Normalized Ratio 1.3; Prothrombin Time (Protime)PT. 16.4 SECONDS (11.7-14.9)
[2018-01-21 23:47] LABS: Partial Thromboplast Time 44.5 Seconds (24.1-36.2)
[2018-01-21 23:48] LABS: Absolute Lymphocyte Count 1.34 X10^3/ul (0.83-4.51); Absolute Neutrophil Count 9.4 X10^3/uL (2.0-7.7); Basophil# 0.01 X10^3/uL; Basophil% 0.1 % (0-1); Eosinophil# 0.03 X10^3/uL; Eosinophils% 0.2 % (0-5); Hematocrit 35.7 % (40-54); Hemoglobin 11.3 g/dl (13.0-16.5); Lymphocyte # 1.34 X10^3/ul (4.0); Lymphocyte % 11.1 % (19-41); Mean Corp Hgb Conc 31.7 g/gl (32-36); Mean Corpuscular Hgb 28.8 pg (27.0-32.0); Mean Corpuscular Volume 91.1 fL (80-94); Monocyte% 10.8 % (0-10); Neutrophil # 9.36 X10^3/uL (2.7-7.7); Neutrophil % 77.6 % (47-70); Platelet Count 116 K/mm3 (150-450); RBC Distribution Width CV 18.8 % (11.6-14.6); RBC Distribution Width SD 62.9 fl (35.1-43.9); Red Blood Count 3.92 M/mm3 (4.6-6.2); White Blood Count 12.1 K/mm3 (4.4-11.0)
[2018-01-21 23:54] LABS: POSITIVE COUNT NO; POSITIVE DIFFERENTIAL NO; POSITIVE MORPHOLOGY NO
--- NOTE | 2018-01-21 23:55 | RAD_ITS ---
STUDY: X-RAY CHEST REASON FOR EXAM: Male, 77 years old. Back pain TECHNIQUE: Single frontal view of the chest. COMPARISON: 09/14/2017 FINDINGS: Dual-chamber pacemaker on the left. The lungs are clear and expanded. There is no demonstrated pleural abnormality. Normal size heart. Normal mediastinum and elis. Normal visualized pulmonary arteries. Normal visualized aortic arch and descending thoracic aorta. Normal visualized thoracic spine. Normal visualized ribs, clavicles, and shoulders. There is no demonstrated abnormality of the visualized soft tissue structures of the upper abdomen. RAD/Chest 1 View (Portable) IMPRESSION: No acute pulmonary findings. Electronically Signed: Jose Miguel Aranda MD at 0:37 EDT Tel , Service support ,
[2018-01-21 23:59] VITALS: O2SAT 93
[2018-01-22] VITALS (23 sets, daily range): BP systolic 101–152; BP diastolic 48–85; PULSE 60–87; RESP 16–40; TEMP 36.6–37.4; O2SAT 77–96; BMI 26.4
[2018-01-22] LABS: ALB/GLOB Ratio 0.7 RATIO (0.9-2.4); AST(SGOT) 9 U/L (15-37); Alanine Aminotransfer ALT/SGPT 19 U/L (16-61); Albumin, Serum 2.6 g/dL (3.2-5.0); Alkaline Phosphatase 78 U/L (45-117); Anion Gap 7 (5-15); BUN 22 mg/dL (7-18); BUN/Creat Ratio 18.6 RATIO (10-20); Calcium,Total 7.9 mg/dL (8.5-10.1); Chloride 106 mmol/L (98-107); Creatinine, Serum 1.18 mg/dL (0.70-1.30); EST Glomerular Filtration Rate 63 mL/min (>60); Est Glom Filt Rate - Afr Amer 77 mL/min (>60); Estimated Creatinine Clearance 52.41 ml/min; Globulin 3.5 g/dL (2.2-4.2); Glucose 94 mg/dL (74-106); Lactic Acid 0.8 mmol/L (0.4-2.0); Potassium 4.4 mmol/L (3.5-5.1); Protein, Total 6.1 g/dL (6.4-8.2); Sodium Level 140 mmol/L (136-145)
--- NOTE | 2018-01-22 02:44 | ED.RN ---
PATIENT STILL NOT ABLE TO VOID. AWARE AND PATIENT IS DRINKING WATER TO TRY AND FACILITATE THIS. HE DOES HAVE BPH AND HX OF 4 PROSTATE SURGERIES.
--- NOTE | 2018-01-22 03:27 | ED.RN ---
PATIENT WAS BLADDER SCANNED FOR OVER 200CC'S. DR. CARRILLO AWARE OF LOWER BP. HE IS GOING TO ADD FLUIDS AND I AM GOING TO STRAIGHT CATH FOR A URINE SPECIMEN.
[2018-01-22] MEDS: 0.9% Normal Saline 1,000 ML 999 ML IV (03:43)
[2018-01-22 03:49] LABS: Bacteria 0 SEEN /hpf (None Seen); Mucous, Urine 0 SEEN /hpf (<or=2+); Red Blood Cells-Urine 0 SEEN /hpf (0-5); Squamous Epithelial Cells - UA 0 SEEN /hpf (0-5); White Blood Cells 0 SEEN /hpf (0-5)
[2018-01-22 03:54] LABS: Color, Urine Yellow (Yellow); Glucose, Dipstick Normal (Normal); Ketone-Dipstick Negative (Negative); Leukocyte Esterase-Dipstick Negative /ul (Negative); Nitrite-Dipstick Negative (Negative); Occult Blood-Urine Negative /ul (Negative); Protein-Dipstick Negative (Negative); Urine Bilirubin Dipstick Negative (Negative); Urine Clarity Clear (Clear); Urine Urobilinogen Normal (Normal)
--- NOTE | 2018-01-22 04:21 | ED.VISSUMM ---
- ER Visit Summary Date of Service: 01/22/18 Chief Complaint: Back pain History of Present Illness: The patient is a 77 M with low back pain. This has been going on for 3 days. Patient denies any injury or inciting event. He has a history of low back pain. He has had spinal injections, most recently about 7 weeks ago. His pain is worse with movement and getting up. EMS gave him some pain medication, and it seems to help. Patient has a history of COPD and had a recent diagnosis of pneumonia. He completed a course of prednisone and Levaquin. He also reports a history of coronary disease, COPD, not on home oxygen, hypertension, hyperlipidemia, pneumonia, AAA, peripheral vascular disease, syncope, BPH, A. fib, pacemaker, and others. He is a smoker and drinks socially. Physical Examination: Blood pressure 119/57. Temperature 101.4. 94% on 2 L. Heart rate 67 and respiratory rate 16. Patient is alert and oriented. No acute distress. Skin appears normal in color without diaphoresis or pallor. Heart regular rate and rhythm. Lungs clear. Abdomen soft and nontender. Lower back is tender to palpation in the mid lumbar spine region. No CVA tenderness. Overlying skin appears normal. Extremities show faint and symmetric DP pulses bilaterally. Good strength and sensation. Test Results: EKG showed paced rhythm at a rate of 68. Chest x-ray showed no acute process. CT abdomen showed nothing acute. Bilateral renal cysts, benign, and a 3.3 cm infrarenal aortic aneurysm. White count 12.1. Hemoglobin 11.3 and platelets 116. BUN 22. INR 1.3. Urinalysis normal. Troponin normal. Lactate 0.8. Cultures pending. Influenza test negative. Emergency Department Course and Treatment: Patient was treated with IV fluids and Tylenol on arrival. Patient has back pain and a history of chronic back pain. His pain may be myofascial, but his fever was concerning. I did check for infectious causes, GI, causes. CT was done and was unremarkable. I also looked for other signs of infection. His chest x-ray and urinalysis were unremarkable. His lactate was normal. INR was subtherapeutic. He had recently stopped his Coumadin because his INR has been high. I reevaluated the patient after his fairly unremarkable workup. His temperature broke. But his pain is worsening, and he required fentanyl. I am concerned the patient may be developing an early sepsis, but I have no source at this point. He does not appear to display signs or symptoms of shock. His lactate is normal. I am concerned given his age, severe symptoms of back pain, inability to ambulate, and because he is SIRS positive, that he should be observed in the hospital. I contacted the hospitalist to evaluate. Treatment Plan: As above Disposition: Admission Impression: 1. Intractable back pain 2. Subtherapeutic INR 3. Fever This note was generated with [employer] dictation software. It may contain incorrect words, spelling, and punctuation that were not noted in review of the chart prior to signing ED Disposition - Plan for ED Patient: Chief Complaint: Back Referrals: Stephanie Fuchs MD [Primary Care Provider] -
--- NOTE | 2018-01-22 04:27 | HP.PCM_ITS ---
Problem List (1) Intractable low back pain Status: Acute (2) Coronary artery disease Status: Chronic Comment: S/P LAD and LCx stenting (3) BPH (benign prostatic hypertrophy) with urinary obstruction Status: Chronic (4) HTN (hypertension) Status: Chronic Qualifiers: Hypertension type: essential hypertension Qualified Code(s): I10 - Essential (primary) hypertension (5) Atrial fibrillation Status: Chronic History of Present Illness Date of Admission: 01/22/18 Chief Complaint: lower back pain The patient is a 77 year old M with a significant history of AAA; CAD, BPH, hypertension, permanent pacemaker, A. fib; chronic back pain who presents with progressively worsening back pain x 2 days. As stated above patient has a history of chronic back pain and he gets spinal steroid shots every 3-4 months. At home he takes Lyrica twice daily. Outpatient patient was supposed to be starting physical therapy in about 3 days time. His pain is located at his entire lower back with left greater than right. His pain is so excruciating that he was unable to move and the squad was called who brought him to the emergency department. At rest his pain is improved; and with moving his body his pain is worsened. He denies any bowel changes. At emergency department he could not produce urine and he had to be straight cath but he attributes this to his history of BPH and multiple surgeries on his prostate that occasionally makes it difficult for him to urinate. His pain does not radiate to his thighs or legs. At emergency department patient was noted to have a fever with a T-max of 101.4 In December of this year patient was treated for acute exacerbation of COPD with Levaquin and steroids. Past Medical History Past Medical History (Chronic Problems): Chronic Problems (Last Reviewed 01/22/18 @ 06:22 by Josiah Squires MD) Tobacco abuse (Chronic) AAA (abdominal aortic aneurysm) (Chronic) PVD (peripheral vascular disease) (Chronic) Long-term use of high-risk medication (Chronic) Stage 2 moderate COPD by GOLD classification (Chronic) ARLENE (obstructive sleep apnea) (Chronic) Central sleep apnea (Chronic) S/P PTCA (percutaneous transluminal coronary angioplasty) (Chronic) Cardiomyopathy (Chronic) SSS (sick sinus syndrome) (Chronic) Autonomic dysfunction (Chronic) HLD (hyperlipidemia) (Chronic) PAD (peripheral artery disease) (Chronic) Community acquired pneumonia (Chronic) Coronary artery disease (Chronic) S/P LAD and LCx stenting BPH (benign prostatic hypertrophy) with urinary obstruction (Chronic) Depressive disorder (Chronic) HTN (hypertension) (Chronic) Atrial fibrillation (Chronic) GERD (gastroesophageal reflux disease) (Chronic) History of orchiectomy, unilateral (Chronic) Pacemaker (Chronic) Nephrolithiasis (Chronic) Personality disorder (Chronic) Medical History: Medical History (Last Reviewed 01/22/18 @ 06:22 by Josiah Squires MD) Shortness of breath (Acute) R06.02 Aspiration pneumonia (Acute) J69.0 Tobacco abuse (Chronic) Z72.0 AAA (abdominal aortic aneurysm) (Chronic) I71.4 PVD (peripheral vascular disease) (Chronic) I73.9 Palpitations (Acute) R00.2 Long-term use of high-risk medication (Chronic) Z79.899 Dizziness and giddiness (Acute) R42 Syncope (Acute) R55 Cough (Acute) R05 Dyspnea (Acute) R06.00 Bronchitis (Acute) J40 Stage 2 moderate COPD by GOLD classification (Chronic) J44.9 Acute respiratory failure with hypoxia (Acute) J96.01 Malaise and fatigue (Acute) R53.81, R53.83 ARLENE (obstructive sleep apnea) (Chronic) G47.33 Central sleep apnea (Chronic) G47.31 Respiratory failure with hypoxia (Resolved) J96.91 Unstable angina (Acute) Chest pain (Acute) R07.9 Cardiomyopathy (Chronic) I42.9 SSS (sick sinus syndrome) (Chronic) I49.5 Autonomic dysfunction (Chronic) G90.9 HLD (hyperlipidemia) (Chronic) E78.5 PAD (peripheral artery disease) (Chronic) I73.9 Acute kidney injury (Acute) N17.9 Sepsis (Resolved) A41.9 Community acquired pneumonia (Chronic) J18.9 Coronary artery disease (Chronic) I25.10 S/P LAD and LCx stenting BPH (benign prostatic hypertrophy) with urinary obstruction (Chronic) N40.1, N13.8 Depressive disorder (Chronic) F32.9 HTN (hypertension) (Chronic) I10 Atrial fibrillation (Chronic) I48.91 GERD (gastroesophageal reflux disease) (Chronic) K21.9 Pacemaker (Chronic) Z95.0 Nephrolithiasis (Chronic) Personality disorder (Chronic) F60.9 Allergies lactose Allergy (Severe, Verified 01/21/18 23:13) unknown Penicillins Allergy (Severe, Verified 01/21/18 23:13) Anaphylaxis adhesive Allergy (Verified 01/21/18 23:13) Rash Sulfa (Sulfonamide Antibiotics) Allergy (Verified 01/21/18 23:13) Unknown diazepam [From Valium] Adverse Reaction (Verified 01/21/18 23:13) hyper opposite effect desired HYPER OPPOSITE EFFECT DESIRED niacin [From Niaspan Extended-Release] Adverse Reaction (Verified 01/21/18 23:13) low bp LOW BP simvastatin Adverse Reaction (Verified 01/21/18 23:13) Pain in joints Home Medications: Ambulatory Orders Medication Instructions Recorded Acetaminophen/Diphenhydramine 500 mg PO QHS 06/18/17 [Tylenol Pm Ex-Strength Caplet] Amlodipine [Norvasc] 2.5 mg PO DAILY 06/18/17 Atorvastatin Calcium [Lipitor] 40 mg PO QHS 06/18/17 Cholecalciferol (Vitamin D3) 1 tab PO DAILY 06/18/17 [Vitamin D3] Cyanocobalamin [Vitamin B12] 1 tab PO DAILY 06/18/17 Donepezil HCl 5 mg PO DAILY 06/18/17 Melatonin 10 mg PO QHS 06/18/17 Metoprolol Tartrate 25 mg PO BID 06/18/17 Omeprazole 20 mg PO DAILY 06/18/17 Pregabalin [Lyrica] 300 mg PO DAILY 06/18/17 Sertraline HCl [Zoloft] 25 mg PO BID 06/18/17 Vit A/Vit C/Vit E/Zinc/Copper 1 ea PO BID 06/18/17 [Preservision Areds Softgel] Warfarin [Coumadin ([facility]KC)] 2 - 2.5 mg PO DAILY 06/18/17 naproxen 500 mg tablet 500 mg PO BID 10/11/17 Aspirin 81 mg PO DAILY 01/22/18 Duloxetine Hcl [Cymbalta] 30 mg PO DAILY 01/22/18 Pregabalin [Lyrica] 100 mg PO DAILY 01/22/18 Surgical History: Surgical History (Last Reviewed 01/22/18 @ 06:22 by Josiah Squires MD) S/P TURP (status post transurethral resection of prostate) (Resolved) Z90.79 pacemaker implantation (Resolved) History of inguinal hernia repair (Resolved) Z98.890, Z87.19 History of hemorrhoidectomy (Resolved) Z98.890 History of prostatectomy (Resolved) Z98.890, Z90.79 right ochiectomy (Resolved) History of appendectomy (Resolved) Z98.890, Z90.49 S/P PTCA (percutaneous transluminal coronary angioplasty) (Chronic) Z98.61 History of orchiectomy, unilateral (Chronic) Z90.79 Surgical History: angioplasty, appendectomy, cholecystectomy, herniorrhaphy Psychiatric History: Depression Lives: Spouse/ Significant Other Smoking Status: Current every day smoker - *Family History Paternal Family History: Family History (Last Reviewed 01/22/18 @ 06:23 by Josiah Squires MD) Father CAD (coronary artery disease) Mother Breast cancer Arthritis CAD (coronary artery disease) Hypertension Sister CVA (cerebral vascular accident) Diabetes Hypertension Son CAD (coronary artery disease) Hypertension History Items: Heart Disease, Renal Disease Sibling Family History: Family History (Last Reviewed 01/22/18 @ 06:23 by Josiah Squires MD) Father CAD (coronary artery disease) Mother Breast cancer Arthritis CAD (coronary artery disease) Hypertension Sister CVA (cerebral vascular accident) Diabetes Hypertension Son CAD (coronary artery disease) Hypertension History Items: Diabetes, Heart Disease Offspring Family History: Family History (Last Reviewed 01/22/18 @ 06:23 by Josiah Squires MD) Father CAD (coronary artery disease) Mother Breast cancer Arthritis CAD (coronary artery disease) Hypertension Sister CVA (cerebral vascular accident) Diabetes Hypertension Son CAD (coronary artery disease) Hypertension History Items: Heart Disease Maternal Family History: Family History (Last Reviewed 01/22/18 @ 06:23 by Josiah Squires MD) Father CAD (coronary artery disease) Mother Breast cancer Arthritis CAD (coronary artery disease) Hypertension Sister CVA (cerebral vascular accident) Diabetes Hypertension Son CAD (coronary artery disease) Hypertension History Items: Cancer, Heart Disease Review of Systems Constitutional: Denies: Chills, Fever, Weight Change HEENT: Denies: Head Aches, Sinus Congestion, Sinus Drainage Cardiovascular: Denies: Chest Pain, Palpitations Respiratory: Reports: Cough - chronic, Sputum production - chronic. Denies: Shortness of breath at rest Gastrointestinal: Denies: Abdominal Pain, Nausea, Vomiting Genitourinary: Denies: Dysuria Musculoskeletal: Reports: Back Pain. Denies: Joint Pain, Joint Tenderness Skin: Denies: Rash, Wounds Neurological: Denies: Numbness, Tingling, Focal weakness Psychiatric: Denies: Anxiety, Depression, Homicidal Ideations, Suicidal Ideati ons Hematologic/ Lymphatic: Denies: Easy Bruising, Easy Bleeding VTE Information - Inpt Only VTE Present on Admission: No VTE Mechan Device Prophylaxis: None VTE Pharm Prophylaxis ordered?: No Reason prophylaxis not ordered:: Treatment Not Indicated - Patient on Coumadin for A. fib; which will be continued. - Physical Exam General: Alert, Oriented x3, Cooperative HEENT: Atraumatic, PERRLA, EOMI, Normocephalic Neck: Supple, No JVD, Negative Carotid Bruits Lungs: Normal air movement, Rhonchi - initally mild rhonchi which cleared up. Cardiovascular: Regular rate, No murmurs Abdomen: Bowel Sounds Present, Soft, Non Tender Extremities: No edema, Capillary Refill Less than 3 Seconds Skin: No rashes, No breakdown Musculoskeletal: Tenderness - to left lower back Lymphatic: No Cervical, Supraclavicular, or Inguinal Adenopathy Neurological: Cranial nerves II-XII grossly intact Psych/Mental Status: Normal Affect, Appropriate Vital Signs Temp Pulse Resp BP Pulse Ox 97.9 F 65 17 102/68 93 01/22/18 03:26 01/22/18 03:26 01/22/18 03:26 01/22/18 03:26 01/22/18 03:26 Oxygen Flow Rate (L/min) 4 Oxygen Delivery Method Nasal Cannula Weight: 79.832 kg Body Mass Index (BMI) 25.2 Microbiology Past 72 Hours 01/21/18 23:45 Influenza Types A,B Direct FA (BRIAN) - Final Mucosa - Nasopharyngeal Laboratory Tests Past 24 Hrs 01/21/18 01/21/18 01/21/18 23:32 23:32 23:32 WBC 12.1 H RBC 3.92 L Hgb 11.3 L Hct 35.7 L MCV 91.1 MCH 28.8 MCHC 31.7 L RDW 18.8 H RDW Differential 62.9 H Plt Count 116 L MPV 11.0 Immature Gran % (Auto) 0.200 Neut % (Auto) 77.6 H Lymph % (Auto) 11.1 L [place] % (Auto) 10.8 H Eos % (Auto) 0.2 Baso % (Auto) 0.1 Absolute Neuts (auto) 9.4 H Absolute Lymphs (auto) 1.34 Total Counted Not Reportable PT 16.4 H INR 1.3 APTT 44.5 H Sodium 140 Potassium 4.4 Chloride 106 Carbon Dioxide 27.0 Anion Gap 7 BUN 22 H Creatinine 1.18 Estim Creat Clear Calc 52.41 Est GFR (MDRD) Af Amer 77 Est GFR (MDRD) Non-Af 63 BUN/Creatinine Ratio 18.6 Glucose 94 Lactic Acid Calcium 7.9 L Total Bilirubin 0.60 AST 9 L ALT 19 Alkaline Phosphatase 78 Troponin I 0.017 Total Protein 6.1 L Albumin 2.6 L Globulin 3.5 Albumin/Globulin Ratio 0.7 L Urine Color Urine Clarity Urine pH Ur Specific [place] Urine Protein Urine Glucose (UA) Urine Ketones Urine Occult Blood Urine Nitrite Urine Bilirubin Urine Urobilinogen Ur Leukocyte Esterase Urine RBC Urine WBC Ur Squamous Epith Cells Urine Bacteria Urine Mucus 01/21/18 01/22/18 23:32 03:42 WBC RBC Hgb Hct MCV MCH MCHC RDW RDW Differential Plt Count MPV Immature Gran % (Auto) Neut % (Auto) Lymph % (Auto) [place] % (Auto) Eos % (Auto) Baso % (Auto) Absolute Neuts (auto) Absolute Lymphs (auto) Total Counted PT INR APTT Sodium Potassium Chloride Carbon Dioxide Anion Gap BUN Creatinine Estim Creat Clear Calc Est GFR (MDRD) Af Amer Est GFR (MDRD) Non-Af BUN/Creatinine Ratio Glucose Lactic Acid 0.8 Calcium Total Bilirubin AST ALT Alkaline Phosphatase Troponin I Total Protein Albumin Globulin Albumin/Globulin Ratio Urine Color Yellow Urine Clarity Clear Urine pH 6.0 Ur Specific [place] 1.010 Urine Protein Negative Urine Glucose (UA) Normal Urine Ketones Negative Urine Occult Blood Negative Urine Nitrite Negative Urine Bilirubin Negative Urine Urobilinogen Normal Ur Leukocyte Esterase Negative Urine RBC 0 SEEN Urine WBC 0 SEEN Ur Squamous Epith Cells 0 SEEN Urine Bacteria 0 SEEN Urine Mucus 0 SEEN Assessment/Plan All Active Problems (Last Reviewed 01/22/18 @ 06:22 by Josiah Squires MD) Intractable low back pain (Acute) Shortness of breath (Acute) Aspiration pneumonia (Acute) S/P TURP (status post transurethral resection of prostate) (Resolved) pacemaker implantation (Resolved) History of inguinal hernia repair (Resolved) History of hemorrhoidectomy (Resolved) History of prostatectomy (Resolved) right ochiectomy (Resolved) History of appendectomy (Resolved) Palpitations (Acute) Dizziness and giddiness (Acute) Syncope (Acute) Cough (Acute) Dyspnea (Acute) Bronchitis (Acute) Acute respiratory failure with hypoxia (Acute) Malaise and fatigue (Acute) Respiratory failure with hypoxia (Resolved) Unstable angina (Acute) Chest pain (Acute) Acute kidney injury (Acute) Sepsis (Resolved) The patient is a 77 year old M with a significant history of AAA; CAD, BPH, hypertension, permanent pacemaker, A. fib; chronic back pain who presents with progressively worsening back pain; and found to have a fever and hypotension. Intractable back pain He reports history of disc herniation. Other different diagnosis includes muscle sprain/strain. Because patient has a pacemaker MRI could not be done. He reported that his pacemaker is not MRI compatible. Abdominal and pelvic CT was done with the intent to evaluate his abdomen and also his back. It showed Multilevel degenerative changes of the lumbosacral spine and the lower thoracic spine. CT did not show any acute pathology in his abdomen or in his back. Patient received fentanyl at emergency department. Oxycodone as needed and morphine as needed ordered. Flexeril as needed. K pad to left lower back. Prn Tylenol not ordered at this time so we can better track his fever. At night though he takes Tylenol PM that was continued. Patient to work with PT and OT. Fever Etiology of his fever is unclear at this time. Chest x-ray independently reviewed confirms no acute cardia pulmonary disease. Urinalysis was unremarkable Patient had no open wounds or redness on his skin. Mild leukocytosis Antibiotic was not started. Blood cultures was ordered from emergency department. Comprehensive respiratory pathogen panel ordered Tylenol not re-started; and if fever rebound consider starting patient on antibiotics. However home Tylenol pm was continued. Hypotension Reportedly patient initial blood pressure was in the high 80s with the automatic ED machine but found to be in the lower 100s of manual blood pressure machine. In any case patient has a history of hypertension and on blood pressure medication, making his blood pressure on admission concerning. Patient received IV bolus at emergency department and his blood pressure remained above 100. Lactic acid was unremarkable. Home blood pressure medication held. Trend blood pressures. If blood pressure remains low consider antibiotics. History of CABG ASA and Lipitor continued. Dementia Patient with good cognitive ability Aricept continued. Depression Zoloft continued Paroxysmal A. fib Metoprolol held secondary to hypotension Patient with pacemaker EKG with right bundle branch block and normal heart rate. INR is subtherapeutic 1.4. Patient reports that he resumed taking Coumadin two days ago after it was held for 3 days secondary to supratherapeutic INR. Coumadin 3mg x 1 today. Repeat INR on 01/23/2018. DVT prophylaxis Not indicated patient on on Coumadin; adjusted as above. Code Visit OBSV E&M: [id number] Initial observation care L3
[2018-01-22] MEDS: fentaNYL 100 MCG/2 ML Ampul 25 MCG IV (04:52)
[2018-01-22] MEDS: 0.9% Normal Saline 1,000 ML 150 ML IV (07:10)
[2018-01-22] MEDS: Morphine 2 MG/ML Syringe IV (08:05)
[2018-01-22] MEDS: 0.9% NaCl Peripheral Flush Adult/Peds IV (08:06)
[2018-01-22] MEDS: Aspirin 81 MG TAB.CHEW PO (08:06)
[2018-01-22] MEDS: Pantoprazole Sodium 20 MG Tablet PO (09:38)
[2018-01-22] MEDS: DULoxetine Hcl 30 MG Capsule PO (09:38)
[2018-01-22] MEDS: Sertraline 50 MG Tablet 25 MG PO ×2 (09:39→21:35)
[2018-01-22] MEDS: Senna Tablet 1 TABLET PO ×2 (09:39→21:34)
[2018-01-22] MEDS: Cyanocobalamin 500 MCG Tablet PO (09:39)
--- NOTE | 2018-01-22 10:31 | CASEMGMT ---
RN CM Assessment PCP: Dr. Fuchs Pharmacy: [facility] Prescription coverage: yes Living Arrangements: Lives with in one story home DME: Cane, Crutches, Walker Social Work Consult: no Intro role of CM to patient and his . Pt states he was independent with care, but did use crutches when back painful, drives. is able to assist with care needs. -PT/OT evaluations pending due to back pain. DC PLAN: anticipate home with , however undetermined pending PT/OT evaluations.
[2018-01-22] MEDS: Ipratropium/Albuterol Sulfate 3 ML AMPUL.NEB INHALATION ×3 (11:14→18:59)
[2018-01-22] MEDS: oxyCODONE 5 MG Tablet 10 MG PO ×2 (11:50→18:07)
[2018-01-22] MEDS: Budesonide Respules 0.5 MG/2 ML AMPUL.NEB. INHALATION (18:59)
--- NOTE | 2018-01-22 20:15 | CPS ---
pt has 5 l/m o2 bleed into own cpap machine because of low sat.
[2018-01-22] MEDS: Donepezil HCl 5 MG Tablet PO (21:34)
[2018-01-22] MEDS: MELATONIN 10 MG TABLET PO (21:35)
[2018-01-22] MEDS: Acetaminophen 500 MG Tablet PO (21:45)
[2018-01-22] MEDS: DiphenhydrAMINE 25 MG Capsule PO (21:45)
[2018-01-22] MEDS: Atorvastatin Calcium 40 MG Tablet PO (21:45)
[2018-01-22] MEDS: Pregabalin 75 MG Capsule 300 MG PO (21:46)
--- NOTE | 2018-01-22 23:26 | CT_ITS ---
STUDY: CT ABDOMEN AND PELVIS WITH CONTRAST REASON FOR EXAM: Male, 77 years old. Low back pain. Spasms. Fever RADIATION DOSAGE (If Supplied By Facility): CTDIvol = ( 21.32 ) mGy, DLP = ( 1075.69 ) mGycm TECHNIQUE: Transaxial images were obtained from the dome of the diaphragm to the symphysis pubis without oral contrast. 100ML ml of Isovue 300 contrast was administered. Sagittal and coronal images were reconstructed. Individualized dose optimization techniques were used for this CT. COMPARISON: November 08, 2017 FINDINGS: Fibrotic changes in the left lung base. Calcification of the LAD and circumflex Two 1 cm cysts in the left lower lobe. Dilated intrahepatic biliary radicles. Previous cholecystectomy. The spleen is normal. The pancreas is normal. Both adrenals are normal. Bilateral multiple benign renal cysts with the largest in the right side measuring 4.3 cm. No hydronephrosis. Left renal cortical thinning. 2 or 3 left calyceal calculi The stomach is normal. There is no bowel distention, acute appendicitis or diverticulitis. No constricting lesions are seen in large bowel. The abdominal wall is intact with no hernias. There is no ascites or any free intraperitoneal air. No indication of epiploic appendagitis Mild 3.3 cm infrarenal abdominal dilatation of the aorta just before the bifurcation There is no retrocrural, retroperitoneal or mesenteric adenopathy. Multilevel degenerative changes of the lumbosacral spine in the lower thoracic spine The urinary bladder is normal.--The prostate is normal. There is no inguinal or pelvic adenopathy. There is no inguinal hernia. . CT/Abdomen/Pelvis W IV Cont ONLY IMPRESSION: No acute findings in the abdomen or pelvis. Specifically there is no acute appendicitis or diverticulitis. Multiple bilateral benign renal cysts. 2 or 3 small left calyceal calculi. No hydronephrosis. A 3.3 cm infrarenal aortic aneurysm just before the bifurcation. Electronically Signed: Cruz Grant MD at 1:24 EDT Tel , Service support ,
[2018-01-23] VITALS (15 sets, daily range): BP systolic 122–170; BP diastolic 49–75; PULSE 64–86; RESP 16–20; TEMP 36.2–37.1; O2SAT 92–94
[2018-01-23 06:23] LABS: International Normalized Ratio 1.7; Prothrombin Time (Protime)PT. 19.9 SECONDS (11.7-14.9)
[2018-01-23 06:25] LABS: Absolute Lymphocyte Count 0.36 X10^3/ul (0.83-4.51); Hematocrit 32.9 % (40-54); Hemoglobin 10.2 g/dl (13.0-16.5); Lymphocyte # 0.36 X10^3/ul (4.0); Lymphocyte % 3.4 % (19-41); Mean Corpuscular Hgb 29.1 pg (27.0-32.0); Mean Corpuscular Volume 93.7 fL (80-94); Mean Platelet Vol. 11.5 fl (6.2-12.0); Monocyte# 0.22 X10^3/uL; Monocyte% 2.1 % (0-10); Neutrophil # 9.95 X10^3/uL (2.7-7.7); Neutrophil % 94.3 % (47-70); Platelet Count 112 K/mm3 (150-450); RBC Distribution Width CV 18.7 % (11.6-14.6); RBC Distribution Width SD 61.6 fl (35.1-43.9); Red Blood Count 3.51 M/mm3 (4.6-6.2); White Blood Count 10.6 K/mm3 (4.4-11.0)
[2018-01-23 06:26] LABS: Anion Gap 10 (5-15); BUN 23 mg/dL (7-18); BUN/Creat Ratio 17.4 RATIO (10-20); Calcium,Total 8.1 mg/dL (8.5-10.1); Chloride 109 mmol/L (98-107); Creatinine, Serum 1.32 mg/dL (0.70-1.30); Differential Indicated SCAN CRITERIA MET; EST Glomerular Filtration Rate 56 mL/min (>60); Est Glom Filt Rate - Afr Amer 67 mL/min (>60); Estimated Creatinine Clearance 46.85 ml/min; Glucose 183 mg/dL (74-106); POSITIVE COUNT NO; POSITIVE DIFFERENTIAL YES; POSITIVE MORPHOLOGY NO; Potassium 4.5 mmol/L (3.5-5.1); Sodium Level 142 mmol/L (136-145)
[2018-01-23 06:35] LABS: Differential Comment SCANNED
[2018-01-23] MEDS: Pregabalin 50 MG Capsule 100 MG PO (06:35)
[2018-01-23] MEDS: Ipratropium/Albuterol Sulfate 3 ML AMPUL.NEB INHALATION ×4 (06:49→18:45)
[2018-01-23] MEDS: Budesonide Respules 0.5 MG/2 ML AMPUL.NEB. INHALATION ×2 (06:50→18:45)
--- NOTE | 2018-01-23 08:43 | PCM.PN.HOSP ---
Subjective: Feels a little better today with breathing and even his back pain. Vitals/I&O's: Vital Signs Temp Pulse Resp BP Pulse Ox 98.4 F 66 18 123/49 H 92 01/23/18 08:28 01/23/18 08:28 01/23/18 08:28 01/23/18 08:28 01/23/18 08:28 Oxygen Flow Rate (L/min) 5 Oxygen Delivery Method Nasal Cannula Weight: 183 lb 13.848 oz Body Mass Index (BMI) 26.4 Intake and Output for Last 24 Hours 01/21/18 01/22/18 01/23/18 23:59 23:59 23:59 Intake Total 2144 / 2144 Output Total 500 / 500 550 / 550 Balance 1644 / 1644 -550 / -550 General: Alert, Oriented x3, Cooperative, No apparent distress HEENT: Atraumatic, EOMI, Normocephalic Neck: Supple, No JVD Lungs: Normal air movement, No rales, Rhonchi, Wheezes Cardiovascular: Regular rate, Regular Rhythm, Normal S1, Normal S2, No murmurs Abdomen: Soft, Non Tender, Non-Distended, No Hepato-splenomegaly Skin: No rashes, No breakdown Musculoskeletal: No Tenderness to Palpation of Joints or Extremities Neurological: Neuro grossly intact, Sensory exam intact to light touch and pain Psych/Mental Status: Normal Affect, Appropriate Microbiology Past 72 Hours 01/22/18 08:55 Mucosa - Nose Respiratory Panel (PCR) - Final 01/21/18 23:45 Mucosa - Nasopharyngeal Influenza Types A,B Direct FA (BRIAN) - Final Laboratory Results 01/23/18 05:34: PT 19.9 H, INR 1.7 01/23/18 05:34: Sodium 142, Potassium 4.5, Chloride 109 H, Carbon Dioxide 23.0, Anion Gap 10, BUN 23 H, Creatinine 1.32 H, Estim Creat Clear Calc 46.85, Est GFR (MDRD) Af Amer 67, Est GFR (MDRD) Non-Af 56 L, BUN/Creatinine Ratio 17.4, Glucose 183 H, Calcium 8.1 L 01/23/18 05:34: WBC 10.6, RBC 3.51 L, Hgb 10.2 L, Hct 32.9 L, MCV 93.7, MCH 29.1, MCHC 31.0 L, RDW 18.7 H, RDW Differential 61.6 H, Plt Count 112 L, MPV 11.5, Immature Gran % (Auto) 0.200, Neut % (Auto) 94.3 H, Lymph % (Auto) 3.4 L, [place] % (Auto) 2.1, Eos % (Auto) 0.0, Baso % (Auto) 0.0, Absolute Neuts (auto) 10.0 H, Absolute Lymphs (auto) 0.36 L, Total Counted Not Reportable, Differential Comment SCANNED Current Medications Acetaminophen (Tylenol) 500 mg PO HS [facility] Last Admin: 01/22/18 21:45 Dose: 500 mg Albuterol/Ipratropium (Duoneb) 3 ml INHALATION Q4HWA.RT [facility] Last Admin: 01/23/18 06:49 Dose: 3 ml Aspirin (Aspirin, Baby) 81 mg PO DAILYCM [facility] Last Admin: 01/22/18 08:06 Dose: 81 mg Atorvastatin Calcium (Lipitor) 40 mg PO QHS [facility] Last Admin: 01/22/18 21:45 Dose: 40 mg Budesonide (Pulmicort Aerosol) 0.5 mg INHALATION Q12H.RT [facility] Last Admin: 01/23/18 06:50 Dose: 0.5 mg Cholecalciferol (Vitamin D) 1,000 unit PO DAILY [facility] Last Admin: 01/22/18 09:39 Dose: 1,000 unit Cyanocobalamin (Vitamin B12) 500 mcg PO DAILY [facility] Last Admin: 01/22/18 09:39 Dose: 500 mcg Cyclobenzaprine HCl (Flexeril) 5 mg PO Q8H PRN PRN Reason: MUSCLE SPASM Last Admin: 01/22/18 09:38 Dose: 5 mg Diphenhydramine HCl (Benadryl) 25 mg PO HS [facility] Last Admin: 01/22/18 21:45 Dose: 25 mg Donepezil HCl (Aricept) 5 mg PO QHS [facility] Last Admin: 01/22/18 21:34 Dose: 5 mg Duloxetine HCl (Cymbalta) 30 mg PO DAILY [facility] Last Admin: 01/22/18 09:38 Dose: 30 mg Azithromycin 500 mg/ Dextrose 255 mls @ 250 mls/hr IV Q24 [facility] Last Admin: 01/22/18 16:19 Dose: 250 mls/hr Ceftriaxone Sodium 2 gm/ (Dextrose) 50 mls @ 100 mls/hr IV Q24 [facility] Last Admin: 01/22/18 17:58 Dose: 100 mls/hr Magnesium Hydroxide (Milk Of Magnesia) 30 ml PO DAILY PRN PRN Reason: Constipation Melatonin (Melatonin) 10 mg PO QHS [facility] Last Admin: 01/22/18 21:35 Dose: 10 mg Methylprednisolone (Solu-Medrol) 40 mg IV Q12 [facility] Last Admin: 01/22/18 21:33 Dose: 40 mg Morphine Sulfate () 2 mg IV Q4H PRN PRN PRN Reason: SEVERE PAIN (6-10/10) Last Admin: 01/22/18 08:05 Dose: 2 mg Ondansetron HCl (Zofran) 4 mg IV Q6H PRN PRN PRN Reason: NAUSEA/VOMITING Oxycodone HCl (Oxyir) 10 mg PO Q6H PRN PRN PRN Reason: MODERATE PAIN (4-5/10) Last Admin: 01/22/18 18:07 Dose: 10 mg Pantoprazole Sodium (Protonix) 20 mg PO DAILY [facility] Last Admin: 01/22/18 09:38 Dose: 20 mg Pregabalin (Lyrica) 100 mg PO DAILY@0700 [facility] Last Admin: 01/23/18 06:35 Dose: 100 mg Pregabalin (Lyrica) 300 mg PO DAILY@2100 [facility] Last Admin: 01/22/18 21:46 Dose: 300 mg Senna (Senokot) 1 tablet PO BID [facility] Last Admin: 01/22/18 21:34 Dose: 1 tablet Sertraline HCl (Zoloft) 25 mg PO BID [facility] Last Admin: 01/22/18 21:35 Dose: 25 mg Sodium Chloride () 5 - 30 ml IV UD PRN PRN Reason: SALINE FLUSH Last Admin: 01/22/18 08:06 Dose: 10 ml Tamsulosin HCl (Flomax) 0.4 mg PO DAILY@1730 [facility] Medical Necessity - Tobacco Use Smoking Status: Current every day smoker Assessment/Plan All Active Problems (Last Reviewed 01/22/18 @ 06:22 by Josiah Squires MD) Intractable low back pain (Acute) Shortness of breath (Acute) Aspiration pneumonia (Acute) S/P TURP (status post transurethral resection of prostate) (Resolved) pacemaker implantation (Resolved) History of inguinal hernia repair (Resolved) History of hemorrhoidectomy (Resolved) History of prostatectomy (Resolved) right ochiectomy (Resolved) History of appendectomy (Resolved) Palpitations (Acute) Dizziness and giddiness (Acute) Syncope (Acute) Cough (Acute) Dyspnea (Acute) Bronchitis (Acute) Acute respiratory failure with hypoxia (Acute) Malaise and fatigue (Acute) Respiratory failure with hypoxia (Resolved) Unstable angina (Acute) Chest pain (Acute) Acute kidney injury (Acute) Sepsis (Resolved) 1. Acute on chronic back pain - Receives steroids shots every 3-4 months - Had increased pain over the last few days, he was swinging a hatchet into a tree stump - Currently pain is improved with continued home medications and flexeril 2. COPD exacerbation with possible pneumonia - Recently completed a course of levaquin steroids - He is PCN allergic with anaphylaxis - Will start rocephin and azithro as well as steroids for his wheezing, coarse BS and elevated WBC and fever on admission - Blood and urine cx pending 3. Paroxysmal a-fib/HTN/CAD s/p CABG - c/w asa and lipitor - Pacemaker in place - INR was 1.4 on admission will increase coumadin to 5 mg qHS, INR is 1.7 this am 4. Depression - Stbale - c/w zoloft 5. Dementia - stable - c/w aricept DVT: Coumadin Diet: Cardiac Code Visit Inpatient E&M: 95206 Subs Hosp L2
[2018-01-23] MEDS: Pantoprazole Sodium 20 MG Tablet PO (08:47)
[2018-01-23] MEDS: DULoxetine Hcl 30 MG Capsule PO (08:47)
[2018-01-23] MEDS: Cyanocobalamin 500 MCG Tablet PO (08:48)
[2018-01-23] MEDS: Sertraline 50 MG Tablet 25 MG PO ×2 (08:48→21:52)
[2018-01-23] MEDS: Senna Tablet 1 TABLET PO ×2 (08:48→21:53)
[2018-01-23] MEDS: Aspirin 81 MG TAB.CHEW PO (08:49)
--- NOTE | 2018-01-23 09:15 | PN_ITS ---
Subjective: Feels a little better today with breathing and even his back pain. Vitals/I&O's: Vital Signs Temp Pulse Resp BP Pulse Ox 98.4 F 66 18 123/49 H 92 01/23/18 08:28 01/23/18 08:28 01/23/18 08:28 01/23/18 08:28 01/23/18 08:28 Oxygen Flow Rate (L/min) 5 Oxygen Delivery Method Nasal Cannula Weight: 183 lb 13.848 oz Body Mass Index (BMI) 26.4 Intake and Output for Last 24 Hours 01/21/18 01/22/18 01/23/18 23:59 23:59 23:59 Intake Total 2144 / 2144 Output Total 500 / 500 550 / 550 Balance 1644 / 1644 -550 / -550 General: Alert, Oriented x3, Cooperative, No apparent distress HEENT: Atraumatic, EOMI, Normocephalic Neck: Supple, No JVD Lungs: Normal air movement, No rales, Rhonchi, Wheezes Cardiovascular: Regular rate, Regular Rhythm, Normal S1, Normal S2, No murmurs Abdomen: Soft, Non Tender, Non-Distended, No Hepato-splenomegaly Skin: No rashes, No breakdown Musculoskeletal: No Tenderness to Palpation of Joints or Extremities Neurological: Neuro grossly intact, Sensory exam intact to light touch and pain Psych/Mental Status: Normal Affect, Appropriate Microbiology Past 72 Hours 01/22/18 08:55 Mucosa - Nose Respiratory Panel (PCR) - Final 01/21/18 23:45 Mucosa - Nasopharyngeal Influenza Types A,B Direct FA (BRIAN) - Final Laboratory Results 01/23/18 05:34: PT 19.9 H, INR 1.7 01/23/18 05:34: Sodium 142, Potassium 4.5, Chloride 109 H, Carbon Dioxide 23.0, Anion Gap 10, BUN 23 H, Creatinine 1.32 H, Estim Creat Clear Calc 46.85, Est GFR (MDRD) Af Amer 67, Est GFR (MDRD) Non-Af 56 L, BUN/Creatinine Ratio 17.4, Glucose 183 H, Calcium 8.1 L 01/23/18 05:34: WBC 10.6, RBC 3.51 L, Hgb 10.2 L, Hct 32.9 L, MCV 93.7, MCH 29.1, MCHC 31.0 L, RDW 18.7 H, RDW Differential 61.6 H, Plt Count 112 L, MPV 11.5, Immature Gran % (Auto) 0.200, Neut % (Auto) 94.3 H, Lymph % (Auto) 3.4 L, [place] % (Auto) 2.1, Eos % (Auto) 0.0, Baso % (Auto) 0.0, Absolute Neuts (auto) 10.0 H, Absolute Lymphs (auto) 0.36 L, Total Counted Not Reportable, Differential Comment SCANNED Current Medications Acetaminophen (Tylenol) 500 mg PO HS [facility] Last Admin: 01/22/18 21:45 Dose: 500 mg Albuterol/Ipratropium (Duoneb) 3 ml INHALATION Q4HWA.RT [facility] Last Admin: 01/23/18 06:49 Dose: 3 ml Aspirin (Aspirin, Baby) 81 mg PO DAILYCM [facility] Last Admin: 01/22/18 08:06 Dose: 81 mg Atorvastatin Calcium (Lipitor) 40 mg PO QHS [facility] Last Admin: 01/22/18 21:45 Dose: 40 mg Budesonide (Pulmicort Aerosol) 0.5 mg INHALATION Q12H.RT [facility] Last Admin: 01/23/18 06:50 Dose: 0.5 mg Cholecalciferol (Vitamin D) 1,000 unit PO DAILY [facility] Last Admin: 01/22/18 09:39 Dose: 1,000 unit Cyanocobalamin (Vitamin B12) 500 mcg PO DAILY [facility] Last Admin: 01/22/18 09:39 Dose: 500 mcg Cyclobenzaprine HCl (Flexeril) 5 mg PO Q8H PRN PRN Reason: MUSCLE SPASM Last Admin: 01/22/18 09:38 Dose: 5 mg Diphenhydramine HCl (Benadryl) 25 mg PO HS [facility] Last Admin: 01/22/18 21:45 Dose: 25 mg Donepezil HCl (Aricept) 5 mg PO QHS [facility] Last Admin: 01/22/18 21:34 Dose: 5 mg Duloxetine HCl (Cymbalta) 30 mg PO DAILY [facility] Last Admin: 01/22/18 09:38 Dose: 30 mg Azithromycin 500 mg/ Dextrose 255 mls @ 250 mls/hr IV Q24 [facility] Last Admin: 01/22/18 16:19 Dose: 250 mls/hr Ceftriaxone Sodium 2 gm/ (Dextrose) 50 mls @ 100 mls/hr IV Q24 [facility] Last Admin: 01/22/18 17:58 Dose: 100 mls/hr Magnesium Hydroxide (Milk Of Magnesia) 30 ml PO DAILY PRN PRN Reason: Constipation Melatonin (Melatonin) 10 mg PO QHS [facility] Last Admin: 01/22/18 21:35 Dose: 10 mg Methylprednisolone (Solu-Medrol) 40 mg IV Q12 [facility] Last Admin: 01/22/18 21:33 Dose: 40 mg Morphine Sulfate () 2 mg IV Q4H PRN PRN PRN Reason: SEVERE PAIN (6-10/10) Last Admin: 01/22/18 08:05 Dose: 2 mg Ondansetron HCl (Zofran) 4 mg IV Q6H PRN PRN PRN Reason: NAUSEA/VOMITING Oxycodone HCl (Oxyir) 10 mg PO Q6H PRN PRN PRN Reason: MODERATE PAIN (4-5/10) Last Admin: 01/22/18 18:07 Dose: 10 mg Pantoprazole Sodium (Protonix) 20 mg PO DAILY [facility] Last Admin: 01/22/18 09:38 Dose: 20 mg Pregabalin (Lyrica) 100 mg PO DAILY@0700 [facility] Last Admin: 01/23/18 06:35 Dose: 100 mg Pregabalin (Lyrica) 300 mg PO DAILY@2100 [facility] Last Admin: 01/22/18 21:46 Dose: 300 mg Senna (Senokot) 1 tablet PO BID [facility] Last Admin: 01/22/18 21:34 Dose: 1 tablet Sertraline HCl (Zoloft) 25 mg PO BID [facility] Last Admin: 01/22/18 21:35 Dose: 25 mg Sodium Chloride () 5 - 30 ml IV UD PRN PRN Reason: SALINE FLUSH Last Admin: 01/22/18 08:06 Dose: 10 ml Tamsulosin HCl (Flomax) 0.4 mg PO DAILY@1730 [facility] Medical Necessity - Tobacco Use Smoking Status: Current every day smoker Assessment/Plan All Active Problems (Last Reviewed 01/22/18 @ 06:22 by Josiah Squires MD) Intractable low back pain (Acute) Shortness of breath (Acute) Aspiration pneumonia (Acute) S/P TURP (status post transurethral resection of prostate) (Resolved) pacemaker implantation (Resolved) History of inguinal hernia repair (Resolved) History of hemorrhoidectomy (Resolved) History of prostatectomy (Resolved) right ochiectomy (Resolved) History of appendectomy (Resolved) Palpitations (Acute) Dizziness and giddiness (Acute) Syncope (Acute) Cough (Acute) Dyspnea (Acute) Bronchitis (Acute) Acute respiratory failure with hypoxia (Acute) Malaise and fatigue (Acute) Respiratory failure with hypoxia (Resolved) Unstable angina (Acute) Chest pain (Acute) Acute kidney injury (Acute) Sepsis (Resolved) 1. Acute on chronic back pain - Receives steroids shots every 3-4 months - Had increased pain over the last few days, he was swinging a hatchet into a tree stump - Currently pain is improved with continued home medications and flexeril 2. COPD exacerbation with possible pneumonia - Recently completed a course of levaquin steroids - He is PCN allergic with anaphylaxis - Will start rocephin and azithro as well as steroids for his wheezing, coarse BS and elevated WBC and fever on admission - Blood and urine cx pending 3. Paroxysmal a-fib/HTN/CAD s/p CABG - c/w asa and lipitor - Pacemaker in place - INR was 1.4 on admission will increase coumadin to 5 mg qHS, INR is 1.7 this am 4. Depression - Stbale - c/w zoloft 5. Dementia - stable - c/w aricept DVT: Coumadin Diet: Cardiac Code Visit Inpatient E&M: 07971 Subs Hosp L2
[2018-01-23] MEDS: Tamsulosin HCl 0.4 MG Capsule PO (17:10)
[2018-01-23] MEDS: Acetaminophen 500 MG Tablet PO (21:51)
[2018-01-23] MEDS: MELATONIN 10 MG TABLET PO (21:52)
[2018-01-23] MEDS: DiphenhydrAMINE 25 MG Capsule PO (21:52)
[2018-01-23] MEDS: Donepezil HCl 5 MG Tablet PO (21:54)
[2018-01-23] MEDS: 0.9% NaCl Peripheral Flush Adult/Peds IV (21:55)
[2018-01-23] MEDS: Pregabalin 75 MG Capsule 300 MG PO (22:00)
[2018-01-23] MEDS: Atorvastatin Calcium 40 MG Tablet PO (22:00)
[2018-01-24] VITALS (19 sets, daily range): BP systolic 118–161; BP diastolic 64–82; PULSE 65–92; RESP 18–24; TEMP 36.3–37.1; O2SAT 91–97
[2018-01-24 06:19] LABS: International Normalized Ratio 3.2; Prothrombin Time (Protime)PT. 32.7 SECONDS (11.7-14.9)
[2018-01-24 06:21] LABS: Anion Gap 7 (5-15); BUN 24 mg/dL (7-18); BUN/Creat Ratio 20.5 RATIO (10-20); Calcium,Total 8.5 mg/dL (8.5-10.1); Chloride 112 mmol/L (98-107); Creatinine, Serum 1.17 mg/dL (0.70-1.30); EST Glomerular Filtration Rate 64 mL/min (>60); Est Glom Filt Rate - Afr Amer 77 mL/min (>60); Estimated Creatinine Clearance 52.86 ml/min; Glucose 163 mg/dL (74-106); Potassium 4.6 mmol/L (3.5-5.1); Sodium Level 143 mmol/L (136-145)
[2018-01-24] MEDS: Pregabalin 50 MG Capsule 100 MG PO (06:23)
[2018-01-24] MEDS: Ipratropium/Albuterol Sulfate 3 ML AMPUL.NEB INHALATION ×4 (06:37→19:45)
[2018-01-24] MEDS: Budesonide Respules 0.5 MG/2 ML AMPUL.NEB. INHALATION (06:37)
[2018-01-24] MEDS: Senna Tablet 1 TABLET PO ×2 (09:01→21:23)
[2018-01-24] MEDS: Aspirin 81 MG TAB.CHEW PO (09:01)
[2018-01-24] MEDS: DULoxetine Hcl 30 MG Capsule PO (09:02)
[2018-01-24] MEDS: Cyanocobalamin 500 MCG Tablet PO (09:02)
[2018-01-24] MEDS: Pantoprazole Sodium 20 MG Tablet PO (09:02)
[2018-01-24] MEDS: 0.9% NaCl Peripheral Flush Adult/Peds IV ×2 (09:03→21:21)
[2018-01-24] MEDS: Sertraline 50 MG Tablet 25 MG PO ×2 (09:04→21:24)
--- NOTE | 2018-01-24 11:52 | CASEMGMT ---
SW met with patient's and daughter per their request. They asked about assisted living. They have been talking about this for awhile and patient knows he will need to move in to [place] soon. He wants to go home for awhile still. They asked about how they go about doing this. SW told them the best thing to do is to go and check out the places. Offered some things they may want to ask. They thanked MARY. Erika ESCALERA MSW
--- NOTE | 2018-01-24 13:14 | CT_ITS ---
STUDY: CT CHEST WITHOUT CONTRAST REASON FOR EXAM: Male, 77 years old. Cough RADIATION DOSAGE (If Supplied By Facility): CTDIvol = ( 13.62 ) mGy, DLP = ( 506.98 ) mGycm TECHNIQUE: Transaxial imaging was performed without the administration of intravenous contrast material. : Sagittal 2-D MPR Individualized dose optimization techniques were used for this CT. COMPARISON: X-ray chest 01/21/2018. FINDINGS: Supraclavicular: No acute process. Thoracic body wall soft tissues: No acute process. Thoracic osseous structures: No acute process. Upper abdomen: Limited evaluation, cholecystectomy, simple appearing right hepatic cyst 2.4 cm. Mild pancreatic atrophy. No acute process. Mediastinum: Normal esophagus. Several borderline enlarged lymph nodes paratracheal, chronicity uncertain. Cardiovascular: Mild cardiomegaly. Subendocardial fibrofatty scar/infarct of the apex of the left ventricle, LAD distribution. Three-vessel coronary atherosclerosis. Stents. Mildly ectatic aorta. Mildly ectatic central pulmonary arteries. Lungs: Small bilateral layering pleural effusions with mild bibasilar atelectasis. In the upper lungs bilaterally, there are patchy and confluent groundglass infiltrates greater on the left, in a pattern most consistent with acute pneumonia, superimposed upon underlying features of centrilobular emphysema. A few scattered small pulmonary nodules are visible, less than [address]/Chest without Contrast IMPRESSION: Bilateral upper lobe pneumonia left greater than right. Centrilobular emphysema. Next line old myocardial infarction. A few scattered pulmonary nodules are nonspecific. Follow-up is recommended according to the ACR lung RADS criteria and/or the Fleischner Society Criteria in the setting of smoking history. Annual low dose screening chest CT scan recommended. Electronically Signed: Devon Valiente, at 13:59 EDT Tel , Service support ,
--- NOTE | 2018-01-24 13:18 | ECHOD_ITS ---
Reason For Study: Dyspnea/SOB Procedure This was a 2D Doppler, Color Flow transthoracic echocardiogram. The study was technically difficult. Unable to use definity due to increased PAP. Exam performed portable in patient room. Left Ventricle Normal LV size. Left ventricular systolic function is normal. Segmental dysfunction with preserved ejection fraction (see wall motion). No evidence for diastolic dysfunction. The estimated ejection fraction is 55 %. Bernice : Akinetic. Right Ventricle Normal RV size. Normal systolic function. Atria The left atrium is mildly enlarged. The right atrium is mildly enlarged. Mitral Valve Normal mitral valve. Tricuspid Valve Normal tricuspid valve. Moderate (2+) tricuspid valve insufficiency. Pulmonary artery systolic pressure is 54 mmHg. Moderate pulmonary hypertension. Aortic Valve Normal aortic valve. Trisinus/trileaflet aortic valve. Pulmonic Valve Normal pulmonic valve. Great Vessels Normal aortic root. The pulmonary artery is normal size. Normal inferior vena cava. Pericardium/Pleural No pericardial effusion. MMode/2D Measurements & Calculations LVIDd: 4.9 cm IVSd: 1.2 cm LVOT diam: 2.2 cm LVIDs: 4.0 cm LVPWd: 0.95 cm LVOT area: 3.8 cm2 FS: 19.1 % Ao root diam: 3.6 cm LAV(MOD-sp4): 68.9 ml LA A4 area: 22.5 cm2 LA dimension: 3.6 cm RA A4 area: 22.2 cm2 Time Measurements MV dec time: 0.22 sec Doppler Measurements & Calculations MV E max greg: 94.5 cm/sec Lat Peak E' Greg: 9.8 cm/sec Med Peak E' Greg: 11.2 cm/sec MV A max greg: 71.2 cm/sec E/E' lat: 9.6 E/E' med: 8.4 MV E/A: 1.3 MV V2 max: 131.0 cm/sec MV P1/2t max greg: 131.0 cm/sec Ao V2 max: 149.8 cm/sec MV max P.9 mmHg MV P1/2t: 87.1 msec Ao max P.0 mmHg MV V2 mean: 78.5 cm/sec MV dec slope: 440.5 cm/sec2 Ao V2 mean: 93.4 cm/sec MV mean P.8 mmHg MVA(P1/2t): 2.5 cm2 Ao mean P.2 mmHg MV V2 VTI: 36.8 cm Ao V2 VTI: 30.5 cm MVA(VTI): 2.6 cm2 ANUP(I,D): 3.1 cm2 ANUP(V,D): 3.1 cm2 LV V1 max: 122.4 cm/sec MR max greg: 559.1 cm/sec SV(LVOT): 95.2 ml LV V1 max P.0 mmHg MR max P.0 mmHg LV V1 mean P.7 mmHg MR mean greg: 448.7 cm/sec LV V1 mean: 75.3 cm/sec MR mean P.9 mmHg LV V1 VTI: 25.4 cm MR VTI: 180.7 cm PA V2 max: 104.0 cm/sec TR max greg: 348.4 cm/sec TR max P.5 mmHg Interpretation Summary Normal LV size. Left ventricular systolic function is normal. Segmental dysfunction with preserved ejection fraction (see wall motion). No evidence for diastolic dysfunction. Pulmonary artery systolic pressure is 54 mmHg. Moderate pulmonary hypertension. Compared to prior study, there is no significant change. Ordering Physician: Modesto Mclaughlin Referring Physician: Howie Parikh Performed By: Tomer George RCS
--- NOTE | 2018-01-24 15:03 | CASEMGMT ---
RN CM spoke with patient and family about home O2 and patient's said she wants him to go to [facility] at d/c. SW called [facility] and left a message with referral and also faxed over referral information. Erika ESCALERA MSW
[2018-01-24 15:31] LABS: BNP,B-Type NATRIURETIC PEPTIDE 1473.8 pg/mL (0-100)
[2018-01-24] MEDS: Magnesium Hydroxide 30 ML UDC PO (15:45)
--- NOTE | 2018-01-24 15:58 | PCM.HP.ID ---
Problem List (1) Fever Status: Acute Reason for Consult: fever Consulted by: Dr. Mclaughlin History of Present Illness: The patient is a 77 year old M who presented late in evening of 01/21 with sudden onset of severe lower back pain. He was outside smoking, back pain started, and he had to crawl back into the house. No trauma. Pain was sharp with no radiation. Has h/o chronic SOB, does not use oxygen at home, now with more dyspnea. Some cough with sputum as baseline, not changed. Family at bedside. Had fever on presentation to ED. Admitted 01/22, given dose of ceftriaxone and azithro in AM of 01/23. Pain in back resolved s/p arrival. Full ROS performed and neg except as noted above. - Medical History Past Medical History (Chronic Problems): Chronic Problems (Last Updated 01/24/18 @ 08:34 by Modesto Mclaughlin DO) Tobacco abuse (Chronic) AAA (abdominal aortic aneurysm) (Chronic) PVD (peripheral vascular disease) (Chronic) Long-term use of high-risk medication (Chronic) Stage 2 moderate COPD by GOLD classification (Chronic) ARLENE (obstructive sleep apnea) (Chronic) Central sleep apnea (Chronic) S/P PTCA (percutaneous transluminal coronary angioplasty) (Chronic) Cardiomyopathy (Chronic) SSS (sick sinus syndrome) (Chronic) Autonomic dysfunction (Chronic) HLD (hyperlipidemia) (Chronic) PAD (peripheral artery disease) (Chronic) Community acquired pneumonia (Chronic) Coronary artery disease (Chronic) S/P LAD and LCx stenting BPH (benign prostatic hypertrophy) with urinary obstruction (Chronic) Depressive disorder (Chronic) HTN (hypertension) (Chronic) Atrial fibrillation (Chronic) GERD (gastroesophageal reflux disease) (Chronic) History of orchiectomy, unilateral (Chronic) Pacemaker (Chronic) Nephrolithiasis (Chronic) Personality disorder (Chronic) Allergies/Adverse Reactions: Allergies lactose Allergy (Severe, Verified 01/21/18 23:13) unknown Penicillins Allergy (Severe, Verified 01/21/18 23:13) Anaphylaxis adhesive Allergy (Verified 01/21/18 23:13) Rash Sulfa (Sulfonamide Antibiotics) Allergy (Verified 01/21/18 23:13) Unknown diazepam [From Valium] Adverse Reaction (Verified 01/21/18 23:13) hyper opposite effect desired HYPER OPPOSITE EFFECT DESIRED niacin [From Niaspan Extended-Release] Adverse Reaction (Verified 01/21/18 23:13) low bp LOW BP simvastatin Adverse Reaction (Verified 01/21/18 23:13) Pain in joints Home Medications: Ambulatory Orders Medication Instructions Recorded Acetaminophen/Diphenhydramine 500 mg PO QHS 06/18/17 [Tylenol Pm Ex-Strength Caplet] Amlodipine [Norvasc] 2.5 mg PO QHS 06/18/17 Atorvastatin Calcium [Lipitor] 40 mg PO QHS 06/18/17 Cholecalciferol (Vitamin D3) 1 tab PO DAILY 06/18/17 [Vitamin D3] Cyanocobalamin [Vitamin B12] 1 tab PO DAILY 06/18/17 Donepezil HCl 5 mg PO DAILY 06/18/17 Melatonin 10 mg PO QHS 06/18/17 Metoprolol Tartrate 25 mg PO BID 06/18/17 Omeprazole 20 mg PO DAILY 06/18/17 Pregabalin [Lyrica] 300 mg PO QHS 06/18/17 Sertraline HCl [Zoloft] 25 mg PO BID 06/18/17 Vit A/Vit C/Vit E/Zinc/Copper 1 ea PO BID 06/18/17 [Preservision Areds Softgel] Warfarin [Coumadin ([facility])] 2 - 2.5 mg PO DAILY 06/18/17 Aspirin 81 mg PO DAILY 01/22/18 Budesonide/Formoterol 160/4.5 2 puff INHALATION BID 01/22/18 [Symbicort 160/4.5 Mcg Inhaler (SP)] Duloxetine Hcl [Cymbalta] 30 mg PO DAILY 01/22/18 Pregabalin [Lyrica] 100 mg PO DAILY 01/22/18 - Social History Tobacco Use: cigarettes Vital Signs Temp Pulse Resp BP Pulse Ox 97.9 F 80 24 H 158/82 H 94 01/24/18 14:14 01/24/18 15:19 01/24/18 15:15 01/24/18 14:14 01/24/18 14:14 Oxygen Flow Rate (L/min) 3 Oxygen Delivery Method Nasal Cannula Weight: 83.4 kg Body Mass Index (BMI) 26.4 Microbiology Past 72 Hours 01/22/18 03:42 Urine Culture - Final Urine, Clean Catch Culture exhibits no growth. 01/21/18 23:32 Blood Culture - Preliminary Blood Culture (Wb) - Anticubital Left No growth in 48 hours. 01/22/18 08:55 Respiratory Panel (PCR) - Final Mucosa - Nose 01/21/18 23:45 Influenza Types A,B Direct FA (BRIAN) - Final Mucosa - Nasopharyngeal Laboratory Tests Past 24 Hrs 01/24/18 01/24/18 01/24/18 05:30 05:30 05:30 PT 32.7 H INR 3.2 Sodium 143 Potassium 4.6 Chloride 112 H Carbon Dioxide 24.0 Anion Gap 7 BUN 24 H Creatinine 1.17 Estim Creat Clear Calc 52.86 Est GFR (MDRD) Af Amer 77 Est GFR (MDRD) Non-Af 64 BUN/Creatinine Ratio 20.5 H Glucose 163 H Calcium 8.5 B-Natriuretic Peptide 1473.8 H - Other Studies Radiology: [] reviewed Other Studies: [] Route of nutrition/ use of supplements: [] Nutritional Intake: [] IV Site: [] Chambers Catheter: [] - Physical Exam General: Alert, Oriented x3, Cooperative, No apparent distress HEENT: Atraumatic, PERRLA, EOMI Neck: Supple, No Nodes Lungs: Diminished, Wheezes Cardiovascular: Irregular Rate Abdomen: Soft, Non Tender, Non-Distended Extremities: No edema Skin: No rashes IV Site: Peripheral, without redness Musculoskeletal: No Tenderness to Palpation of Joints or Extremities - Assessment/Plan Antibiotics: [] Assessment/Plan: [] copd exacerbation - one time fever, some hypoxia. CT shows upper lobe changes. Ok to monitor off of abx. Wbc normal. Resp viral panel neg. Will follow, d/w primary team.
[2018-01-24] MEDS: Tamsulosin HCl 0.4 MG Capsule PO (18:31)
--- NOTE | 2018-01-24 19:33 | PCM.PROGNOTE ---
Patient Problems: Active and Suspected Problems (Last Updated 01/24/18 @ 08:34 by Modesto Mclaughlin DO) Fever (Acute) Subjective: Patient was seen and examined today, I talked at length with the patient and his family were in the room today including his . In reviewing the patient's medical record, it is not clear to me why the patient is hypoxic, there was only one episode of documented fever in the last several days and I felt that antibiotics which were ordered were not necessary, I stopped these antibiotics today and had infectious diseases see the patient. I also ordered a CT of the chest without contrast which showed evidence of upper lobe groundglass appearing infiltrates along with significant emphysema. Patient also had a BNP ordered which came back highly elevated indicative of congestive heart failure. Patient had an echocardiogram today which showed a preserved ejection fraction at 55% along with moderate pulmonary hypertension-these results are similar to a previous echocardiogram done 2 years ago.. I had a brief conversation with his customer service voice and have decided to place the patient on IV Lasix for presumed diastolic congestive heart failure and pulmonary hypertension. Infectious diseases does not feel the patient needs to be on antibiotics at this time, I do not feel the patient needs a pulmonary consultation at this time. Finally, it appears that the patient's family wishes the patient to go to a long-term facility for brief inpatient care I think this is probably a good idea as the patient has some memory issues and according to the daughter is unstable walking and she feels that he could be a danger going home with his . - Physical Exam General: Alert, Oriented x3, Cooperative, Well developed, - - Patient is in moderate distress during activity due to shortness of breath HEENT: Atraumatic, PERRLA, EOMI, Normocephalic Oral: Moist Mucosa Neck: Supple, No Nuchal Rigidity, Trachea Midline, Thyroid Normal Size and Texture Lungs: No rhonchi, No wheeze, Diminished, Rales - Inspiratory rales at the bases are noted bilaterally Cardiovascular: Regular rate, Regular Rhythm, Normal S1, Normal S2, No murmurs, No Ectopic Activity, PMI Normal, No rub noted, No Gallop Abdomen: Bowel Sounds Present, Soft, Non Tender, Non-Distended, No hernias noted Extremities: No clubbing, No cyanosis, No edema, Capillary Refill Less than 3 Seconds Skin: No rashes, No breakdown Musculoskeletal: No Tenderness to Palpation of Joints or Extremities Neurological: Cranial nerves II-XII grossly intact, Neuro grossly intact, Sensory exam intact to light touch and pain, Coordination normal Psych/Mental Status: Normal Affect, Appropriate, Alert and oriented to time, place, person, mood and affect Vital Signs Temp Pulse Resp BP Pulse Ox 97.9 F 80 24 H 158/82 H 94 01/24/18 14:14 01/24/18 15:19 01/24/18 15:15 01/24/18 14:14 01/24/18 14:14 Oxygen Flow Rate (L/min) 3 Oxygen Delivery Method Nasal Cannula Weight: 83.4 kg Body Mass Index (BMI) 26.4 Intake and Output for Last 24 Hours 01/22/18 01/23/18 01/24/18 23:59 23:59 23:59 Intake Total 2144 / 2144 534 / 534 Output Total 500 / 500 1999 Balance 1644 / 1644 -1466 / -1466 Microbiology Past 72 Hours 01/22/18 03:42 Urine Culture - Final Urine, Clean Catch Culture exhibits no growth. 01/21/18 23:32 Blood Culture - Preliminary Blood Culture (Wb) - Anticubital Left No growth in 48 hours. 01/22/18 08:55 Respiratory Panel (PCR) - Final Mucosa - Nose 01/21/18 23:45 Influenza Types A,B Direct FA (BRIAN) - Final Mucosa - Nasopharyngeal Laboratory Tests Past 24 Hrs 01/24/18 01/24/18 01/24/18 05:30 05:30 05:30 PT 32.7 H INR 3.2 Sodium 143 Potassium 4.6 Chloride 112 H Carbon Dioxide 24.0 Anion Gap 7 BUN 24 H Creatinine 1.17 Estim Creat Clear Calc 52.86 Est GFR (MDRD) Af Amer 77 Est GFR (MDRD) Non-Af 64 BUN/Creatinine Ratio 20.5 H Glucose 163 H Calcium 8.5 B-Natriuretic Peptide 1473.8 H Medical Necessity - Tobacco Use Smoking Status: Current every day smoker Assessment/Plan All Active Problems (Last Updated 01/24/18 @ 08:34 by Modesto Mclaughlin DO) Fever (Acute) Intractable low back pain (Acute) Shortness of breath (Acute) Aspiration pneumonia (Resolved) S/P TURP (status post transurethral resection of prostate) (Resolved) pacemaker implantation (Resolved) History of inguinal hernia repair (Resolved) History of hemorrhoidectomy (Resolved) History of prostatectomy (Resolved) right ochiectomy (Resolved) History of appendectomy (Resolved) Palpitations (Acute) Dizziness and giddiness (Resolved) Syncope (Resolved) Cough (Resolved) Dyspnea (Acute) Bronchitis (Resolved) Acute respiratory failure with hypoxia (Acute) Malaise and fatigue (Acute) Respiratory failure with hypoxia (Resolved) Unstable angina (Resolved) Chest pain (Resolved) Acute kidney injury (Resolved) Sepsis (Resolved) #1 acute low back pain secondary to degenerative disc disease lumbar spine-patient is currently on IV Solu-Medrol, I will change it to oral prednisone #2 acute hypoxic respiratory failure-secondary to diastolic CHF with an overlay of severe COPD-patient will be placed on IV Lasix and reevaluated tomorrow, antibiotics were stopped, patient does not have pneumonia. Patient is not on oxygen at home #3 severe COPD-I will decrease the patient's aerosol treatments to every 6 hours, he is not wheezing today. Patient continues to smoke at home #4 chronic atrial fibrillation-in paced rhythm currently #5 dementia by history #6 Coronary artery disease #7 hypertension #8 chronic anticoagulation with Coumadin-again patient's Coumadin will be stopped, he will be transitioned over to Xarelto, for now I will not place him on any anticoagulation Code Visit Inpatient E&M: 51025 Subs Hosp L2
--- NOTE | 2018-01-24 19:36 | PN_ITS ---
Patient Problems: Active and Suspected Problems (Last Updated 01/24/18 @ 08:34 by Modesto Mclaughlin DO) Fever (Acute) Subjective: Patient was seen and examined today, I talked at length with the patient and his family were in the room today including his . In reviewing the patient's medical record, it is not clear to me why the patient is hypoxic, there was only one episode of documented fever in the last several days and I felt that antibiotics which were ordered were not necessary, I stopped these antibiotics today and had infectious diseases see the patient. I also ordered a CT of the chest without contrast which showed evidence of upper lobe groundglass appearing infiltrates along with significant emphysema. Patient also had a BNP ordered which came back highly elevated indicative of congestive heart failure. Patient had an echocardiogram today which showed a preserved ejection fraction at 55% along with moderate pulmonary hypertension- these results are similar to a previous echocardiogram done 2 years ago.. I had a brief conversation with his reject opener and filler and have decided to place the patient on IV Lasix for presumed diastolic congestive heart failure and pulmonary hypertension. Infectious diseases does not feel the patient needs to be on antibiotics at this time, I do not feel the patient needs a pulmonary consultation at this time. Finally, it appears that the patient's family wishes the patient to go to a correction facility for brief inpatient care I think this is probably a good idea as the patient has some memory issues and according to the daughter is unstable walking and she feels that he could be a danger going home with his . - Physical Exam General: Alert, Oriented x3, Cooperative, Well developed, - - Patient is in moderate distress during activity due to shortness of breath HEENT: Atraumatic, PERRLA, EOMI, Normocephalic Oral: Moist Mucosa Neck: Supple, No Nuchal Rigidity, Trachea Midline, Thyroid Normal Size and Texture Lungs: No rhonchi, No wheeze, Diminished, Rales - Inspiratory rales at the bases are noted bilaterally Cardiovascular: Regular rate, Regular Rhythm, Normal S1, Normal S2, No murmurs, No Ectopic Activity, PMI Normal, No rub noted, No Gallop Abdomen: Bowel Sounds Present, Soft, Non Tender, Non-Distended, No hernias noted Extremities: No clubbing, No cyanosis, No edema, Capillary Refill Less than 3 Seconds Skin: No rashes, No breakdown Musculoskeletal: No Tenderness to Palpation of Joints or Extremities Neurological: Cranial nerves II-XII grossly intact, Neuro grossly intact, Sensory exam intact to light touch and pain, Coordination normal Psych/Mental Status: Normal Affect, Appropriate, Alert and oriented to time, place, person, mood and affect Vital Signs Temp Pulse Resp BP Pulse Ox 97.9 F 80 24 H 158/82 H 94 01/24/18 14:14 01/24/18 15:19 01/24/18 15:15 01/24/18 14:14 01/24/18 14:14 Oxygen Flow Rate (L/min) 3 Oxygen Delivery Method Nasal Cannula Weight: 83.4 kg Body Mass Index (BMI) 26.4 Intake and Output for Last 24 Hours 01/22/18 01/23/18 01/24/18 23:59 23:59 23:59 Intake Total 2144 / 2144 534 / 534 Output Total 500 / 500 1999 Balance 1644 / 1644 -1466 / -1466 Microbiology Past 72 Hours 01/22/18 03:42 Urine Culture - Final Urine, Clean Catch Culture exhibits no growth. 01/21/18 23:32 Blood Culture - Preliminary Blood Culture (Wb) - Anticubital Left No growth in 48 hours. 01/22/18 08:55 Respiratory Panel (PCR) - Final Mucosa - Nose 01/21/18 23:45 Influenza Types A,B Direct FA (BRIAN) - Final Mucosa - Nasopharyngeal Laboratory Tests Past 24 Hrs 01/24/18 01/24/18 01/24/18 05:30 05:30 05:30 PT 32.7 H INR 3.2 Sodium 143 Potassium 4.6 Chloride 112 H Carbon Dioxide 24.0 Anion Gap 7 BUN 24 H Creatinine 1.17 Estim Creat Clear Calc 52.86 Est GFR (MDRD) Af Amer 77 Est GFR (MDRD) Non-Af 64 BUN/Creatinine Ratio 20.5 H Glucose 163 H Calcium 8.5 B-Natriuretic Peptide 1473.8 H Medical Necessity - Tobacco Use Smoking Status: Current every day smoker Assessment/Plan All Active Problems (Last Updated 01/24/18 @ 08:34 by Modesto Mclaughlin DO) Fever (Acute) Intractable low back pain (Acute) Shortness of breath (Acute) Aspiration pneumonia (Resolved) S/P TURP (status post transurethral resection of prostate) (Resolved) pacemaker implantation (Resolved) History of inguinal hernia repair (Resolved) History of hemorrhoidectomy (Resolved) History of prostatectomy (Resolved) right ochiectomy (Resolved) History of appendectomy (Resolved) Palpitations (Acute) Dizziness and giddiness (Resolved) Syncope (Resolved) Cough (Resolved) Dyspnea (Acute) Bronchitis (Resolved) Acute respiratory failure with hypoxia (Acute) Malaise and fatigue (Acute) Respiratory failure with hypoxia (Resolved) Unstable angina (Resolved) Chest pain (Resolved) Acute kidney injury (Resolved) Sepsis (Resolved) #1 acute low back pain secondary to degenerative disc disease lumbar spine- patient is currently on IV Solu-Medrol, I will change it to oral prednisone #2 acute hypoxic respiratory failure-secondary to diastolic CHF with an overlay of severe COPD-patient will be placed on IV Lasix and reevaluated tomorrow, antibiotics were stopped, patient does not have pneumonia. Patient is not on oxygen at home #3 severe COPD-I will decrease the patient's aerosol treatments to every 6 hours, he is not wheezing today. Patient continues to smoke at home #4 chronic atrial fibrillation-in paced rhythm currently #5 dementia by history #6 Coronary artery disease #7 hypertension #8 chronic anticoagulation with Coumadin-again patient's Coumadin will be stopped, he will be transitioned over to Xarelto, for now I will not place him on any anticoagulation Code Visit Inpatient E&M: 40744 Subs Hosp L2
[2018-01-24] MEDS: Pregabalin 75 MG Capsule 300 MG PO (20:03)
[2018-01-24] MEDS: DiphenhydrAMINE 25 MG Capsule PO (21:18)
[2018-01-24] MEDS: Donepezil HCl 5 MG Tablet PO (21:18)
[2018-01-24] MEDS: Furosemide 40 MG/4 ML Vial IV (21:18)
[2018-01-24] MEDS: Atorvastatin Calcium 40 MG Tablet PO (21:19)
[2018-01-24] MEDS: MELATONIN 10 MG TABLET PO (21:19)
[2018-01-24] MEDS: Acetaminophen 500 MG Tablet PO (21:20)
[2018-01-25] VITALS (22 sets, daily range): BP systolic 112–153; BP diastolic 61–77; PULSE 62–92; RESP 14–22; TEMP 36.6–37.3; O2SAT 92–97
--- NOTE | 2018-01-25 04:15 | NURSING ---
RN noticed this shift that pt having accelerations and PVCs. According to documentation from a previous shift, romelia HANEY was previously notified that pt had an acceleration and PVCs.
[2018-01-25] MEDS: Pregabalin 50 MG Capsule 100 MG PO (06:32)
[2018-01-25] MEDS: 0.9% NaCl Peripheral Flush Adult/Peds IV ×3 (06:32→21:58)
[2018-01-25] MEDS: Furosemide 40 MG/4 ML Vial IV ×3 (06:32→22:03)
[2018-01-25 06:48] LABS: Anion Gap 8 (5-15); BUN 25 mg/dL (7-18); BUN/Creat Ratio 19.5 RATIO (10-20); Calcium,Total 8.4 mg/dL (8.5-10.1); Chloride 110 mmol/L (98-107); Creatinine, Serum 1.28 mg/dL (0.70-1.30); EST Glomerular Filtration Rate 58 mL/min (>60); Est Glom Filt Rate - Afr Amer 70 mL/min (>60); Estimated Creatinine Clearance 48.32 ml/min; Glucose 111 mg/dL (74-106); Potassium 4.4 mmol/L (3.5-5.1); Sodium Level 143 mmol/L (136-145)
[2018-01-25] MEDS: Ipratropium/Albuterol Sulfate 3 ML AMPUL.NEB INHALATION ×3 (07:20→18:53)
[2018-01-25] MEDS: Budesonide Respules 0.5 MG/2 ML AMPUL.NEB. INHALATION (07:20)
[2018-01-25] MEDS: Aspirin 81 MG TAB.CHEW PO (08:17)
[2018-01-25] MEDS: predniSONE 20 MG Tablet PO ×2 (08:30→17:08)
[2018-01-25] MEDS: Cyanocobalamin 500 MCG Tablet PO (08:44)
[2018-01-25] MEDS: Pantoprazole Sodium 20 MG Tablet PO (08:44)
[2018-01-25] MEDS: DULoxetine Hcl 30 MG Capsule PO ×2 (08:44→14:56)
[2018-01-25] MEDS: Senna Tablet 1 TABLET PO ×2 (08:46→22:00)
[2018-01-25] MEDS: Sertraline 50 MG Tablet 25 MG PO (08:46)
[2018-01-25] MEDS: Magnesium Hydroxide 30 ML UDC PO (08:50)
--- NOTE | 2018-01-25 08:51 | CASEMGMT ---
MARY received voice mail from Lauren at [facility]. They can take patient as long as he realizes he cannot smoke while at their facility. MARY will make sure patient knows he cannot smoke at [facility]. Erika ESCALERA MSW
[2018-01-25 09:55] LABS: Prothrombin Time (Protime)PT. 35.3 SECONDS (11.7-14.9)
[2018-01-25 10:03] LABS: International Normalized Ratio 3.5
--- NOTE | 2018-01-25 10:26 | PCM.PN.ID ---
Patient Problems: Active and Suspected Problems (Last Updated 01/24/18 @ 08:34 by Modesto Mclaughlin DO) Fever (Acute) Subjective: Feeling a little better, no fever. Still some SOB. - Physical Exam General: Alert, Cooperative, No apparent distress Lungs: Diminished, Wheezes Cardiovascular: Tachycardic Abdomen: Soft, Non Tender, Non-Distended Skin: No rashes Vital Signs Temp Pulse Resp BP Pulse Ox 98.8 F 70 18 148/75 H 95 01/25/18 08:40 01/25/18 08:40 01/25/18 08:40 01/25/18 08:40 01/25/18 08:40 Oxygen Flow Rate (L/min) 4 Oxygen Delivery Method Nasal Cannula Weight: 83.4 kg Body Mass Index (BMI) 26.4 Intake and Output for Last 24 Hours 01/23/18 01/24/18 01/25/18 23:59 23:59 23:59 Intake Total 534 / 534 480 / 480 40 / 40 Output Total 1999 / 1999 175 / 175 Balance -1466 / -1466 480 / 480 -135 / -135 Microbiology Past 72 Hours 01/22/18 03:42 Urine Culture - Final Urine, Clean Catch Culture exhibits no growth. 01/21/18 23:32 Blood Culture - Preliminary Blood Culture (Wb) - Anticubital Left No growth in 48 hours. 01/22/18 08:55 Respiratory Panel (PCR) - Final Mucosa - Nose Laboratory Tests Past 24 Hrs 01/24/18 01/25/18 01/25/18 05:30 06:22 09:18 PT 35.3 H INR 3.5 H* Sodium 143 Potassium 4.4 Chloride 110 H Carbon Dioxide 25.0 Anion Gap 8 BUN 25 H Creatinine 1.28 Estim Creat Clear Calc 48.32 Est GFR (MDRD) Af Amer 70 Est GFR (MDRD) Non-Af 58 L BUN/Creatinine Ratio 19.5 Glucose 111 H Calcium 8.4 L B-Natriuretic Peptide 1473.8 H Medical Necessity - Tobacco Use Smoking Status: Current every day smoker Route of nutrition/ use of supplements: [] Nutritional Intake: [] IV Site: [] Chambers Catheter: [] - Assessment/Plan Antibiotics: [] Assessment/Plan: [] copd exacerbation with CHF - one time fever, some hypoxia. CT shows upper lobe changes. Ok to monitor off of abx. Wbc normal. Resp viral panel neg. Will follow as needed, d/w primary team.
--- NOTE | 2018-01-25 11:18 | CASEMGMT ---
Addendum entered by Erika Solomon 01/25/18 14:55: SW also spoke with patient's and let her know that [facility] will be able to take patient at d/c. Erika LILLY Original Note: SW spoke with patient and he is in agreement with going to [facility]. MARY told him they are a smoke free facility. He said he is aware and is okay with this. MARY also called Lauren at [facility] and left her a voice mail letting her know patient will not be coming today. Plan: [facility] under skilled level of care Erika LILLY
[2018-01-25] MEDS: Phytonadione (Vit K) 10 MG/ML Ampul PO (12:25)
[2018-01-25] MEDS: Tamsulosin HCl 0.4 MG Capsule PO (17:08)
--- NOTE | 2018-01-25 18:05 | PCM.CONS.C ---
Problem List (1) CHF (congestive heart failure) Status: Acute Qualifiers: Heart failure type: diastolic (2) Coronary artery disease Status: Chronic Comment: S/P LAD and LCx stenting (3) S/P PTCA (percutaneous transluminal coronary angioplasty) Status: Chronic (4) Cardiomyopathy Status: Chronic Qualifiers: Cardiomyopathy type: ischemic Qualified Code(s): I25.5 - Ischemic cardiomyopathy (5) SSS (sick sinus syndrome) Status: Chronic (6) Atrial fibrillation Status: Chronic (7) pacemaker implantation Status: Resolved (8) PVD (peripheral vascular disease) Status: Chronic (9) Autonomic dysfunction Status: Chronic (10) HLD (hyperlipidemia) Status: Chronic (11) HTN (hypertension) Status: Chronic Qualifiers: Hypertension type: essential hypertension Qualified Code(s): I10 - Essential (primary) hypertension (12) COPD (chronic obstructive pulmonary disease) Status: Acute Qualifiers: COPD type: COPD with acute exacerbation Qualified Code(s): J44.1 - Chronic obstructive pulmonary disease with (acute) exacerbation Reason for Consult Date of Consultation: 01/25/18 History of Present Illness: The patient is a 77 year old white male with a past cardiovascular history which is included underlying CAD, NV, PCI, ischemic mediated cardiomyopathy, sick sinus syndrome, atrial fibrillation, permanent pacemaker placement, PAD, autonomic dysfunction, hyperlipidemia, hypertension, and COPD who is referred for concerns of CHF in the setting of COPD exacerbation as well as permanent pacemaker dysfunction with loss of atrial pacing and subsequent VVI mode for further evaluation and care and consideration to PPM generator change. The patient presented with symptoms of shortness of breath and dyspnea. There have been concerns of an underlying acute infectious disease process superimposed upon a COPD exacerbation. He has undergone evaluation by internal medicine and infectious disease. He did receive antibiotic therapy and IV corticosteroid therapy. At the present time based upon his infectious disease evaluation he is no longer on antibiotic therapy and he is being monitored. However based upon his concerns he also underwent evaluation for possible CHF. A BNP level was performed which was abnormal. A transthoracic echocardiogram was performed which was reported as demonstrating the left ventricle to be preserved with respect to overall LV systolic function despite left ventricular regional wall motion abnormalities with a reported LVEF of 55%. There was a comment of no obvious diastolic dysfunction. There was also a comment of elevated pulmonary artery systolic pressure. He was treated with IV diuretic therapy. He has had some improvement in his respiratory status. During this time he also went through permanent pacemaker evaluation. It was noted he was no longer atrial pacing as he has done in the past. He was in a VVI mode. Thus there was concern without his atrial kick his clinical status may have altered and contributed to what appears to be concerns of his volume overload and shortness of breath. He has denied ongoing chest discomfort. He has had chronic shortness of breath and dyspnea at rest and with exertion. He has had no obvious lower extremity peripheral pitting edema. There is been no near syncope or syncope. He states his clinical status declined to the point where he was crawling out of his house, onto his porch, to smoke a cigarette and then subsequently crawling back into the house. This is when he noticed his clinical status markedly declined and he required further evaluation care. Thus he presented to the hospital. His troponin I level was negative. His cardiac rhythm has demonstrated an underlying electronic ventricular paced rhythm. [] Past Medical History Allergies/Adverse Reactions: Allergies lactose Allergy (Severe, Verified 01/21/18 23:13) unknown Penicillins Allergy (Severe, Verified 01/21/18 23:13) Anaphylaxis adhesive Allergy (Verified 01/21/18 23:13) Rash Sulfa (Sulfonamide Antibiotics) Allergy (Verified 01/21/18 23:13) Unknown diazepam [From Valium] Adverse Reaction (Verified 01/21/18 23:13) hyper opposite effect desired HYPER OPPOSITE EFFECT DESIRED niacin [From Niaspan Extended-Release] Adverse Reaction (Verified 01/21/18 23:13) low bp LOW BP simvastatin Adverse Reaction (Verified 01/21/18 23:13) Pain in joints Home Medications: Ambulatory Orders Medication Instructions Recorded Acetaminophen/Diphenhydramine 500 mg PO QHS 06/18/17 [Tylenol Pm Ex-Strength Caplet] Amlodipine [Norvasc] 2.5 mg PO QHS 06/18/17 Atorvastatin Calcium [Lipitor] 40 mg PO QHS 06/18/17 Cholecalciferol (Vitamin D3) 1 tab PO DAILY 06/18/17 [Vitamin D3] Cyanocobalamin [Vitamin B12] 1 tab PO DAILY 06/18/17 Donepezil HCl 5 mg PO DAILY 06/18/17 Melatonin 10 mg PO QHS 06/18/17 Metoprolol Tartrate 25 mg PO BID 06/18/17 Omeprazole 20 mg PO DAILY 06/18/17 Pregabalin [Lyrica] 300 mg PO QHS 06/18/17 Sertraline HCl [Zoloft] 25 mg PO BID 06/18/17 Vit A/Vit C/Vit E/Zinc/Copper 1 ea PO BID 06/18/17 [Preservision Areds Softgel] Warfarin [Coumadin (PBKC)] 2 - 2.5 mg PO DAILY 06/18/17 Aspirin 81 mg PO DAILY 01/22/18 Budesonide/Formoterol 160/4.5 2 puff INHALATION BID 01/22/18 [Symbicort 160/4.5 Mcg Inhaler (SP)] Duloxetine Hcl [Cymbalta] 30 mg PO DAILY 01/22/18 Pregabalin [Lyrica] 100 mg PO DAILY 01/22/18 Past Medical History (Chronic Problems): Chronic Problems (Last Updated 01/24/18 @ 08:34 by Modesto Mclaughlin DO) Tobacco abuse (Chronic) AAA (abdominal aortic aneurysm) (Chronic) PVD (peripheral vascular disease) (Chronic) Long-term use of high-risk medication (Chronic) Stage 2 moderate COPD by GOLD classification (Chronic) ARLENE (obstructive sleep apnea) (Chronic) Central sleep apnea (Chronic) S/P PTCA (percutaneous transluminal coronary angioplasty) (Chronic) Cardiomyopathy (Chronic) SSS (sick sinus syndrome) (Chronic) Autonomic dysfunction (Chronic) HLD (hyperlipidemia) (Chronic) PAD (peripheral artery disease) (Chronic) Community acquired pneumonia (Chronic) Coronary artery disease (Chronic) S/P LAD and LCx stenting BPH (benign prostatic hypertrophy) with urinary obstruction (Chronic) Depressive disorder (Chronic) HTN (hypertension) (Chronic) Atrial fibrillation (Chronic) GERD (gastroesophageal reflux disease) (Chronic) History of orchiectomy, unilateral (Chronic) Pacemaker (Chronic) Nephrolithiasis (Chronic) Personality disorder (Chronic) Surgical History: angioplasty, appendectomy, cholecystectomy, herniorrhaphy Psychiatric History: Depression - *Family History Paternal Family History: Family History (Last Reviewed 01/22/18 @ 06:23 by Josiah Squires MD) Father CAD (coronary artery disease) Mother Breast cancer Arthritis CAD (coronary artery disease) Hypertension Sister CVA (cerebral vascular accident) Diabetes Hypertension Son CAD (coronary artery disease) Hypertension History Items: Heart Disease, Renal Disease Sibling Family History: Family History (Last Reviewed 01/22/18 @ 06:23 by Josiah Squires MD) Father CAD (coronary artery disease) Mother Breast cancer Arthritis CAD (coronary artery disease) Hypertension Sister CVA (cerebral vascular accident) Diabetes Hypertension Son CAD (coronary artery disease) Hypertension History Items: Diabetes, Heart Disease Offspring Family History: Family History (Last Reviewed 01/22/18 @ 06:23 by Josiah Squires MD) Father CAD (coronary artery disease) Mother Breast cancer Arthritis CAD (coronary artery disease) Hypertension Sister CVA (cerebral vascular accident) Diabetes Hypertension Son CAD (coronary artery disease) Hypertension History Items: Heart Disease Maternal Family History: Family History (Last Reviewed 01/22/18 @ 06:23 by Josiah Squires MD) Father CAD (coronary artery disease) Mother Breast cancer Arthritis CAD (coronary artery disease) Hypertension Sister CVA (cerebral vascular accident) Diabetes Hypertension Son CAD (coronary artery disease) Hypertension History Items: Cancer, Heart Disease Lives: Spouse/ Significant Other Smoking Status: Current every day smoker Alcohol: Occasional Drugs: None Review of Systems - Review of Systems General: Denies: Fatigue, Night Sweats Cardiovascular: Reports: Shortness of Breath, Shortness of Breath at Rest, Shortness of Breath with Exertion. Denies: Chest Discomfort, Orthopnea, PND, Peripheral Edema, Palpitations, Lightheadedness, Dizziness, Near Syncope, Syncope Respiratory: Reports: Shortness of Breath. Denies: Sputum Production, Hemoptysis Gastrointestinal: Denies: Hematemesis, Hematochezia, Melena Genitourinary: Denies: Dysuria, Hematuria Skin: Denies: Rash Subjectve: This is a thin 77-year-old white male who appears to be resting reasonably comfortably at the moment in no acute distress. Objective: Vital Signs Temp Pulse Resp BP Pulse Ox 98.1 F 67 18 115/61 92 01/25/18 17:53 01/25/18 17:53 01/25/18 17:53 01/25/18 17:53 01/25/18 17:53 Oxygen Flow Rate (L/min) 4 Oxygen Delivery Method Nasal Cannula Weight: 183 lb 13.848 oz Body Mass Index (BMI) 26.4 Intake and Output for Last 24 Hours 01/23/18 01/24/18 01/25/18 23:59 23:59 23:59 Intake Total 534 / 534 480 / 480 620 / 620 Output Total 1999 175 / 175 Balance -1466 / -1466 480 / 480 445 / 445 General: Awake, Alert, Oriented x 3, Cooperative, No Acute Distress HEENT: Atraumatic, Normocephalic, PERRL, EOMI, Sclera Non Icteric Oral: Moist Mucosa Neck: Supple, Good ROM, No JVD Lungs: Rhonchi, Expiratory Wheezes-Lukas Cardiovascular: Regular Rhythm, Normal S1, Normal S2 Abdomen: Bowel Sounds Present, Soft, Non Tender Extremities: No edema, - - Left lower extremity ecchymoses Neurological: No Focal Motor or Sensory Deficit Psych/Mental Status: Appropriate, Normal Affect 01/25/18 06:22: Sodium 143, Potassium 4.4, Chloride 110 H, Carbon Dioxide 25.0, Anion Gap 8, BUN 25 H, Creatinine 1.28, Est GFR (MDRD) Af Amer 70, Est GFR (MDRD) Non-Af 58 L, BUN/Creatinine Ratio 19.5, Glucose 111 H, Calcium 8.4 L 01/25/18 09:18: PT 35.3 H, INR 3.5 H* Rhythm: Electronic ventricular paced rhythm ECHO: 01/24/2018: Left ventricle with left ventricular regional wall motion abnormalities with hypokinesis of the mid anterior septum and mid inferior septum and akinesis of the apex with a reported LVEF 55%; mild biatrial enlargement; moderate TR; estimated RV systolic pressure 54 mmHg; no report of diastolic dysfunction Stress Test: 03/16/2017: Pharmacologic stress nuclear imaging study: Report being compatible with an area of previous myocardial injury/infarction involving portions of the distal anterior, distal anteroseptal, apical segments, without myocardial perfusion changes considered diagnostic for associated stress-induced myocardial ischemia, gated LVEF of 50% Cardiac Cath: 10/15/2009: [facility]: Left ventricle with severe hypokinesis to akinesis of the anteroapical and inferoapical segments with an estimated LVEF 50%; left main coronary artery normal; LAD mid stented segment patent with minimal luminal irregularity; LCx first OM stented with minimal luminal irregularities; RCA being a moderate to large vessel with proximal minimal luminal irregularities PCI: 07/20/2007: [facility]: OM1 PTCA/stent PPM: [employer]: Sensia: Model number: SDR 01: Serial number: [id number]: Date implanted: 02/02/2008: Dual-chamber pacemaker Chest CT scan: 01/24/2018: IMPRESSION: Bilateral upper lobe pneumonia left greater than right. Centrilobular emphysema. Next line old myocardial infarction. A few scattered pulmonary nodules are nonspecific. Follow-up is recommended according to the ACR lung RADS criteria and/or the Fleischner Society Criteria in the setting of smoking history. Annual low dose screening chest CT scan recommended. Assessment/Plan 1. Congestive heart failure: Consideration for acute diastolic mediated The patient does have left ventricular wall motion abnormalities but overall preserved LV systolic function. There is concern, despite his echocardiographic report, that his findings are compatible with a combination of diastolic mediated CHF as well as loss of his atrial kick . This will be superimposed upon his noncardiovascular issues with concerns of an underlying COPD exacerbation. From a cardiac standpoint he will continue to be monitored. He will continue medical therapy. This includes IV diuretics. He will also be considered for permanent pacemaker generator change in the hopes of regaining his atrial kick and potentially his overall cardiovascular efficiency. 2. CAD status post PCI He has had no evidence of acute coronary syndrome or myocardial injury/infarction. He will need to continue risk factor modification medical therapy as tolerated once his clinical course stabilizes. 3. Sick sinus syndrome/paroxysmal atrial fibrillation status post permanent pacemaker placement Patient does have concerns of underlying sick sinus syndrome with paroxysmal afibrillation. He is status post permanent pacemaker placement. At the present time his rate control therapy with respect to beta blockers are on hold during his acute evaluation. His anticoagulants are on hold noting his need for an upcoming permanent pacemaker generator change. Based upon his elevated INR level he is receiving reversal agents with vitamin K and FFP. If his clinical status is considered stable and his INR is considered stable then he will undergo permanent pacemaker generator change potentially on 01/26/2018. 4. PAD The patient does have a history of underlying PAD. This can be reassessed as deemed appropriate. 5. Autonomic dysfunction The patient has a history of autonomic dysfunction. He has been evaluated locally and at a tertiary care center for this. He has attempted to maintain adequate hydration, adjustment of medications, etc. to avoid any acute events. 6. Hyperlipidemia He will continue lipid-lowering therapy as deemed appropriate. 7. Hypertension His blood pressure will be monitored. He will continue medical therapy with adjustment as deemed appropriate. 8. COPD He does have a history of underlying COPD. He is undergoing evaluation care for a COPD exacerbation. He has been evaluated by infectious disease. He is no longer on antibiotic therapy. Comment: The above was discussed with patient, his spouse, Dr. Mclaughlin, and Dr. Skinner. This note was generated with [employer] dictation software. It may contain incorrect words, spelling, and punctuation that were not noted in checking the note before signing.
--- NOTE | 2018-01-25 18:47 | PN_ITS ---
Patient Problems: Active and Suspected Problems (Last Updated 01/24/18 @ 08:34 by Modesto Mclaughlin DO) Fever (Acute) CHF (congestive heart failure) (Acute) COPD (chronic obstructive pulmonary disease) (Acute) Subjective: Patient was seen and examined today, his pacemaker check today revealed that his atrial pacing was not active. I contacted cardiology and they saw the patient today and the plan is for the patient to have the pacemaker generator replaced tomorrow. Patient appears more comfortable breathing today although he is still on 4 L of oxygen. Patient's INR was elevated today and cardiology requested that he receive medication to improve his INR so that he could have his pacemaker generator change tomorrow. She will be given oral vitamin K and IV fresh frozen plasma. - Physical Exam General: Alert, Oriented x3, Cooperative, No apparent distress, Well developed HEENT: Atraumatic, PERRLA, EOMI, Normocephalic Oral: Moist Mucosa Neck: Supple, No Nuchal Rigidity, Trachea Midline, Thyroid Normal Size and Texture Lungs: No rhonchi, Diminished, Wheezes - Scattered expiratory wheezes are noted bilaterally Cardiovascular: No murmurs, PMI Normal, Irregular Rate, No rub noted Abdomen: Bowel Sounds Present, Soft, Non Tender Extremities: No edema, Capillary Refill Less than 3 Seconds Skin: No rashes, No breakdown Neurological: Cranial nerves II-XII grossly intact, Neuro grossly intact, Sensory exam intact to light touch and pain, Coordination normal Psych/Mental Status: Normal Affect, Appropriate, Alert and oriented to time, place, person, mood and affect Vital Signs Temp Pulse Resp BP Pulse Ox 98.1 F 67 18 115/61 92 01/25/18 17:53 01/25/18 17:53 01/25/18 17:53 01/25/18 17:53 01/25/18 17:53 Oxygen Flow Rate (L/min) 4 Oxygen Delivery Method Nasal Cannula Weight: 83.4 kg Body Mass Index (BMI) 26.4 Intake and Output for Last 24 Hours 01/23/18 01/24/18 01/25/18 23:59 23:59 23:59 Intake Total 534 / 534 480 / 480 1599 / 1599 Output Total 1999 2125 / 2125 Balance -1466 / -1466 480 / 480 -526 / -526 Microbiology Past 72 Hours 01/22/18 03:42 Urine Culture - Final Urine, Clean Catch Culture exhibits no growth. 01/21/18 23:32 Blood Culture - Preliminary Blood Culture (Wb) - Anticubital Left No growth in 48 hours. 01/22/18 08:55 Respiratory Panel (PCR) - Final Mucosa - Nose Laboratory Tests Past 24 Hrs 01/25/18 01/25/18 01/25/18 06:22 09:18 12:35 PT 35.3 H INR 3.5 H* Sodium 143 Potassium 4.4 Chloride 110 H Carbon Dioxide 25.0 Anion Gap 8 BUN 25 H Creatinine 1.28 Estim Creat Clear Calc 48.32 Est GFR (MDRD) Af Amer 70 Est GFR (MDRD) Non-Af 58 L BUN/Creatinine Ratio 19.5 Glucose 111 H Calcium 8.4 L MRSA (PCR) Blood Type B POSITIVE 01/25/18 18:00 PT INR Sodium Potassium Chloride Carbon Dioxide Anion Gap BUN Creatinine Estim Creat Clear Calc Est GFR (MDRD) Af Amer Est GFR (MDRD) Non-Af BUN/Creatinine Ratio Glucose Calcium MRSA (PCR) Pending Blood Type Medical Necessity - Tobacco Use Smoking Status: Current every day smoker Assessment/Plan All Active Problems (Last Updated 01/24/18 @ 08:34 by Modesto Mclaughlin DO) Fever (Acute) CHF (congestive heart failure) (Acute) COPD (chronic obstructive pulmonary disease) (Acute) Intractable low back pain (Acute) Shortness of breath (Acute) Aspiration pneumonia (Resolved) S/P TURP (status post transurethral resection of prostate) (Resolved) pacemaker implantation (Resolved) History of inguinal hernia repair (Resolved) History of hemorrhoidectomy (Resolved) History of prostatectomy (Resolved) right ochiectomy (Resolved) History of appendectomy (Resolved) Palpitations (Acute) Dizziness and giddiness (Resolved) Syncope (Resolved) Cough (Resolved) Dyspnea (Acute) Bronchitis (Resolved) Acute respiratory failure with hypoxia (Acute) Malaise and fatigue (Acute) Respiratory failure with hypoxia (Resolved) Unstable angina (Resolved) Chest pain (Resolved) Acute kidney injury (Resolved) Sepsis (Resolved) #1 acute low back pain secondary to degenerative disc disease lumbar spine- patient's back pain has improved, continue prednisone #2 acute hypoxic respiratory failure-secondary to acute diastolic CHF with an overlay of severe COPD-patient will be placed on IV Lasix and reevaluated tomorrow, antibiotics were stopped, patient does not have pneumonia. Patient is not on oxygen at home #3 severe COPD-patient will be placed on q. 2-hour albuterol aerosols as needed, he will remain on DuoNeb aerosols, patient is on oral prednisone, he will not need Pulmicort aerosols #4 chronic paroxysmal atrial fibrillation-in ventricular paced rhythm without P waves, patient will undergo a generator change tomorrow #5 dementia by history #6 Coronary artery disease #7 hypertension #8 elevated INR-again patient will receive pressures and pleasant vitamin K, INR will be rechecked, patient's Coumadin was stopped and he will be transitioned in a short period of time over to Xarelto. Code Visit Inpatient E&M: 00501 Subs Hosp L2
[2018-01-25] MEDS: Pregabalin 75 MG Capsule 300 MG PO (20:00)
[2018-01-25 20:34] LABS: Probe Check PASS
[2018-01-25 20:35] LABS: M R Staph aureus DNA By PCR POSITIVE (Negative)
[2018-01-25] MEDS: Donepezil HCl 5 MG Tablet PO (21:54)
[2018-01-25] MEDS: DiphenhydrAMINE 25 MG Capsule PO (21:54)
[2018-01-25] MEDS: MELATONIN 10 MG TABLET PO (21:55)
[2018-01-25] MEDS: Atorvastatin Calcium 40 MG Tablet PO (21:55)
[2018-01-25] MEDS: Acetaminophen 500 MG Tablet PO (21:56)
[2018-01-25 22:21] LABS: International Normalized Ratio 1.5; Prothrombin Time (Protime)PT. 17.8 SECONDS (11.7-14.9)
[2018-01-26] VITALS (25 sets, daily range): BP systolic 100–167; BP diastolic 62–93; PULSE 65–78; RESP 14–20; TEMP 36.7–37.1; O2SAT 86–97
[2018-01-26 05:52] LABS: Absolute Lymphocyte Count 0.95 X10^3/ul (0.83-4.51); Absolute Neutrophil Count 6.8 X10^3/uL (2.0-7.7); Hematocrit 32.7 % (40-54); Hemoglobin 10.5 g/dl (13.0-16.5); Lymphocyte # 0.95 X10^3/ul (4.0); Lymphocyte % 11.5 % (19-41); Mean Corp Hgb Conc 32.1 g/gl (32-36); Mean Corpuscular Hgb 29.2 pg (27.0-32.0); Mean Corpuscular Volume 91.1 fL (80-94); Monocyte# 0.51 X10^3/uL; Monocyte% 6.2 % (0-10); Neutrophil % 82.1 % (47-70); Platelet Count 139 K/mm3 (150-450); RBC Distribution Width CV 18.5 % (11.6-14.6); RBC Distribution Width SD 60.6 fl (35.1-43.9); Red Blood Count 3.59 M/mm3 (4.6-6.2); White Blood Count 8.3 K/mm3 (4.4-11.0)
--- NOTE | 2018-01-26 05:55 | EKG12_ITS ---
Test Reason : AM EKG Blood Pressure : / mmHG Vent. Rate : 065 BPM Atrial Rate : 085 BPM P-R Int : 000 ms QRS Dur : 158 ms QT Int : 476 ms P-R-T Axes : 000 -66 094 degrees QTc Int : 495 ms Ventricular-paced rhythm Abnormal ECG Confirmed by MARCELL HANYE, MARII ([id number]), image editor GUERITA ONEILL ([id number] on 01/27/2018 2:02:39 PM Referred By: GENNY Confirmed By:MARII FAITH MD
[2018-01-26 05:58] LABS: POSITIVE COUNT NO; POSITIVE DIFFERENTIAL NO; POSITIVE MORPHOLOGY NO
[2018-01-26 06:00] LABS: International Normalized Ratio 1.3; Prothrombin Time (Protime)PT. 15.9 SECONDS (11.7-14.9)
[2018-01-26 06:01] LABS: Partial Thromboplast Time 35.4 Seconds (24.1-36.2)
[2018-01-26 06:07] LABS: Anion Gap 9 (5-15); BUN 30 mg/dL (7-18); BUN/Creat Ratio 20.7 RATIO (10-20); Calcium,Total 8.8 mg/dL (8.5-10.1); Chloride 101 mmol/L (98-107); Creatinine, Serum 1.45 mg/dL (0.70-1.30); EST Glomerular Filtration Rate 50 mL/min (>60); Est Glom Filt Rate - Afr Amer 60 mL/min (>60); Estimated Creatinine Clearance 42.65 ml/min; Glucose 113 mg/dL (74-106); Potassium 4.3 mmol/L (3.5-5.1); Sodium Level 142 mmol/L (136-145)
[2018-01-26] MEDS: Pregabalin 50 MG Capsule 100 MG PO (06:40)
[2018-01-26] MEDS: 0.9% NaCl Peripheral Flush Adult/Peds IV ×3 (06:40→21:14)
[2018-01-26] MEDS: Furosemide 40 MG/4 ML Vial IV ×3 (06:40→21:07)
[2018-01-26] MEDS: Ipratropium/Albuterol Sulfate 3 ML AMPUL.NEB INHALATION ×2 (06:51→13:09)
[2018-01-26] MEDS: Aspirin 81 MG TAB.CHEW PO (09:25)
[2018-01-26] MEDS: predniSONE 20 MG Tablet PO ×2 (09:26→16:18)
[2018-01-26] MEDS: DULoxetine Hcl 30 MG Capsule 60 MG PO (09:28)
[2018-01-26] MEDS: Pantoprazole Sodium 20 MG Tablet PO (09:30)
[2018-01-26] MEDS: Cyanocobalamin 500 MCG Tablet PO (09:31)
[2018-01-26] MEDS: Senna Tablet 1 TABLET PO (09:32)
[2018-01-26] MEDS: 0.9% Normal Saline 1,000 ML 15 ML IV (09:47)
--- NOTE | 2018-01-26 09:49 | PN.CARD_ITS ---
Subjectve: The patient is awake and alert. He denies chest pain. He is chronically short of breath. However, he states his breathing has improved since medical therapy including diuresis. He is able to be supine. Objective: Vital Signs Temp Pulse Resp BP Pulse Ox 98.4 F 65 18 130/72 H 94 01/26/18 09:37 01/26/18 09:37 01/26/18 09:37 01/26/18 09:37 01/26/18 09:37 Oxygen Flow Rate (L/min) 6 Oxygen Delivery Method Nasal Cannula Weight: 183 lb 13.848 oz Body Mass Index (BMI) 26.4 Intake and Output for Last 24 Hours 01/24/18 01/25/18 01/26/18 23:59 23:59 23:59 Intake Total 480 / 480 2469 / 2469 40 / 40 Output Total 3275 / 3275 300 / 300 Balance 480 / 480 -806 / -806 -260 / -260 General: Awake, Alert, Oriented x 3, Cooperative, No Acute Distress HEENT: Atraumatic, Normocephalic, PERRL, EOMI, Sclera Non Icteric Oral: Moist Mucosa Neck: Supple, Good ROM, No JVD Lungs: - - diminished breath sounds bilaterally Cardiovascular: Regular Rhythm, Normal S1, Normal S2 Abdomen: Bowel Sounds Present, Soft, Non Tender Extremities: No edema Neurological: No Focal Motor or Sensory Deficit Psych/Mental Status: Appropriate, Normal Affect 01/25/18 09:18: PT 35.3 H, INR 3.5 H* 01/25/18 21:29: PT 17.8 H, INR 1.5 01/26/18 05:22: PT 15.9 H, INR 1.3, APTT 35.4 01/26/18 05:22: WBC 8.3, RBC 3.59 L, Hgb 10.5 L, Hct 32.7 L, MCV 91.1, MCH 29.2, MCHC 32.1, RDW 18.5 H, RDW Differential 60.6 H, Plt Count 139 L, MPV 12.0, Immature Gran % (Auto) 0.200, Neut % (Auto) 82.1 H, Lymph % (Auto) 11.5 L, Franklin % (Auto) 6.2, Eos % (Auto) 0.0, Baso % (Auto) 0.0, Absolute Neuts (auto) 6.8, Total Counted Not Reportable 01/26/18 05:22: Sodium 142, Potassium 4.3, Chloride 101, Carbon Dioxide 32.0, Anion Gap 9, BUN 30 H, Creatinine 1.45 H, Est GFR (MDRD) Af Amer 60, Est GFR (MDRD) Non-Af 50 L, BUN/Creatinine Ratio 20.7 H, Glucose 113 H, Calcium 8.8 Rhythm: electronic ventricular pacemaker Medical Necessity - Tobacco Use Smoking Status: Current every day smoker Tobacco Use: Cigarettes Assessment/Plan 1. Congestive heart failure: Consideration for acute diastolic mediated The patient does have left ventricular wall motion abnormalities but overall preserved LV systolic function. There is concern, despite his echocardiographic report, that his findings are compatible with a combination of diastolic mediated CHF as well as loss of his atrial kick . This will be superimposed upon his noncardiovascular issues with concerns of an underlying COPD exacerbation. From a cardiac standpoint he will continue to be monitored. He will continue medical therapy. This includes diuretics. He is pending PPM generator change. Hopefully this will assist with his overall cardiac efficiency and thus his symptoms / findings. 2. CAD status post PCI He has had no evidence of acute coronary syndrome or myocardial injury/infarction. He will need to continue risk factor modification medical therapy as tolerated once his clinical course stabilizes. 3. Sick sinus syndrome/paroxysmal atrial fibrillation status post permanent pacemaker placement Patient does have concerns of underlying sick sinus syndrome with paroxysmal atrial fibrillation. He is status post permanent pacemaker placement. Eventually, once his status is improved, he should be considered for restarting his beta scot therapy. His INR is decreased s/p reversal agents. He will proceed with his PPM generator change. He will eventually need to be back on anticoagulant therapy. 4. PAD The patient does have a history of underlying PAD. This can be reassessed as deemed appropriate. 5. Autonomic dysfunction The patient has a history of autonomic dysfunction. He has been evaluated locally and at a tertiary care center for this. He has attempted to maintain adequate hydration, adjustment of medications, etc. to avoid any acute events. 6. Hyperlipidemia He will continue lipid-lowering therapy as deemed appropriate. 7. Hypertension His blood pressure will be monitored. He will continue medical therapy with adjustment as deemed appropriate. 8. COPD He does have a history of underlying COPD. He is undergoing evaluation care for a COPD exacerbation. He has been evaluated by infectious disease. He is no longer on antibiotic therapy. Comment: The above was discussed with patient, his spouse, Dr. Mclaughlin, and Dr. Skinner. This note was generated with [employer] software. It may contain incorrect words, spelling, and punctuation that were not noted in checking the note before signing.
--- NOTE | 2018-01-26 10:37 | CASEMGMT ---
MARY faxed updates to [place]. MARY also wrote on the fax face sheet likely d/c tomorrow. Plan: [place] [facility] under skilled level of care. Erika ESCALERA MSW
--- NOTE | 2018-01-26 11:06 | CASEMGMT ---
SW verified patient's advance directives are on file in [facility]. Copies were printed and placed in paper chart. Erika ESCALERA MSW
--- NOTE | 2018-01-26 11:44 | NURSING ---
this RN in pt's room to start IV fluids for cath procedure. this RN flushed IV and it was leaking. attempts to fix leak were made with out success. This RN pulled IV and notified lab instructor. This RN spoke to Alverto RN in lab instructor. Alverto RN told this RN to bring pt to lab instructor anyway and that they would place new IV.
--- NOTE | 2018-01-26 11:50 | NURSING ---
report called to Marjorie MADRID in [employer]
--- NOTE | 2018-01-26 12:57 | DCINST_ITS ---
Discharge Diet: No Restrictions Discharge Activity: May Not Drive Call your doctor if your incision/area has: Continuous Slow Oozing, Sudden Increased Bleeding, Increased Pain/ Swelling, Increased Redness, Foul Smelling Discharge, Swelling at the incision site Call your doctor if you observe: Fever of 101 or Higher, Shortness of breath, Dizziness, Fainting spells, Swelling in the ankles, Chest pain, Prolonged hiccoughing, Increased palpitations (irregular heartbeat) Suture Line Care: Avoid Pulling/Pushing, Avoid Pinching/Bending Cleanse incision/area with: Do not get Incision Wet, Keep Dressing Clean & Dry Additional Dressing/Incision Instructions:: When dressing is removed, wash and dry incision. Keep covered with a light bandage if it is rubbing against your clothing. Do not cover the incision with an airtight bandage. Change the bandage daily. Do not remove steri strips. The strips will fall off on their own. Additional Instructions: Signs and Symptoms to Report to Your Doctor at Once - call your doctor's office or Doctor's Registry ([phone]) Call 911 or go to the nearest Emergency Department if you feel you need urgent care. *Infection (fever, increased redness or swelling at the incision site, drainage from the incision increased pain at the pacemaker site) *Shortness of breath *Dizziness *Fainting spells *Swelling in the ankles *Chest pain *Prolonged hiccoughing *Increased palpitaitons (irregular heartbeat) Medications: Take your pain medication as directed. Refer to your discharge instruction sheet for a list of medications you are to take. Allergies/Adverse Reactions: Allergies lactose Allergy (Severe, Verified 01/21/18 23:13) unknown Penicillins Allergy (Severe, Verified 01/21/18 23:13) Anaphylaxis adhesive Allergy (Verified 01/21/18 23:13) Rash Sulfa (Sulfonamide Antibiotics) Allergy (Verified 01/21/18 23:13) Unknown diazepam [From Valium] Adverse Reaction (Verified 01/21/18 23:13) hyper opposite effect desired HYPER OPPOSITE EFFECT DESIRED niacin [From Niaspan Extended-Release] Adverse Reaction (Verified 01/21/18 23:13 ) low bp LOW BP simvastatin Adverse Reaction (Verified 01/21/18 23:13) Pain in joints Medications to take at Discharge Acetaminophen/Diphenhydramine [Tylenol Pm Ex-Strength Caplet] 500 mg PO QHS 06/18/17 Amlodipine [Norvasc] 2.5 mg PO QHS 06/18/17 Atorvastatin Calcium [Lipitor] 40 mg PO QHS 06/18/17 Cholecalciferol (Vitamin D3) [Vitamin D3] 1 tab PO DAILY 06/18/17 Cyanocobalamin [Vitamin B12] 1 tab PO DAILY 06/18/17 Donepezil HCl 5 mg PO DAILY 06/18/17 Melatonin 10 mg PO QHS 06/18/17 Metoprolol Tartrate 25 mg PO BID 06/18/17 Omeprazole 20 mg PO DAILY 06/18/17 Pregabalin [Lyrica] 300 mg PO QHS 06/18/17 Sertraline HCl [Zoloft] 25 mg PO BID 06/18/17 Vit A/Vit C/Vit E/Zinc/Copper [Preservision Areds Softgel] 1 ea PO BID 06/18/17 Warfarin [Coumadin (PBKC)] 2 - 2.5 mg PO DAILY 06/18/17 Aspirin 81 mg PO DAILY 01/22/18 Budesonide/Formoterol 160/4.5 [Symbicort 160/4.5 Mcg Inhaler (SP)] 2 puff INHALATION BID 01/22/18 Duloxetine Hcl [Cymbalta] 30 mg PO DAILY 01/22/18 Pregabalin [Lyrica] 100 mg PO DAILY 01/22/18 Primary Care Physician: Stephanie Fuchs MD [Primary Care Provider] - Test Results: Test results from this visit will be discussed in further detail at your follow- up appointment, if applicable. When: PACER CLINIC Wednesday 10;30 AM
--- NOTE | 2018-01-26 13:01 | CL.IE_ITS ---
Patient: JORGE HENDRICKSON Study Date: 01/26/2018 Performing: Clint Skinner MD : [id number] Age: 77 Gender: male PROCEDURES PERFORMED [id number] REMOVAL+REPLACEMENT PACER-DUAL LEAD INDICATIONS End-of-life replacement indicator Sinoatrial node dysfunction/Sick sinus syndrome PROCEDURE DETAILS The patient was brought to the Catheterization Lab in the postabsorptive nonsedated state. Informed consent was obtained prior to the procedure. Local anesthetic was given subcutaneously to the left up per chest area with Lidocaine 2%. Incision was made to the left upper chest. PPM generator was remove d. PPM generator was then interrogated by the rpg programmer. Device pocket was irrigated with antibiotic . PPM generator was attached to the lead(s) and inserted into the pocket. Subcutaneous closure was co mpleted with 3-0 Vicryl. Skin closure was completed with 4-0 Vicryl. Steri-strips applied to Lt chest area. The patient tolerated the procedure well. Estimated Blood Loss: < 10 mls IMPLANTED / EX-PLANTED DEVICES IMPLANTED DEVICE(S): PPM Generator - Health Screener: Flare Code, Model # [id number] MRI L111 , Serial # [id number] DEVICE PARAMETERS DEVICE PARAMETERS: Mode- DDDR Lower rate- 70 Upper rate- 130 CONCLUSIONS / RECOMMENDATIONS Device Conclusions: Successful implantation of a single chamber pacemaker battery change and replacem ent Device Recommendations: Follow up with Primary Care Physician PROCEDURE MEDICATIONS Fentanyl 50 mcg IV Oxygen: 6 L/min via nasal cannula Antibiotic given in appropriate timeframe. Signed By Clint Skinner MD On 01/26/2018 13:01:17 Clint Skinner MD
--- NOTE | 2018-01-26 13:17 | NURSING ---
Read and reviewed SN documentation
[2018-01-26] MEDS: Tamsulosin HCl 0.4 MG Capsule PO (16:18)
--- NOTE | 2018-01-26 19:31 | PN_ITS ---
Patient Problems: Active and Suspected Problems (Last Updated 01/24/18 @ 08:34 by Modesto Mclaughlin DO) Fever (Acute) CHF (congestive heart failure) (Acute) COPD (chronic obstructive pulmonary disease) (Acute) Subjective: Patient seen and examined today, he is resting quietly, he had his pacemaker generator replaced today, patient's oxygen requirement is 3 L at this time. Patient's creatinine is risen to 1.45 today, I will recheck patient's BMP tomorrow morning. I talked to his farm management professor today by phone and I feel that the patient needs continued IV diuresis and he agrees. - Physical Exam General: Alert, Cooperative, No apparent distress, Well developed HEENT: Atraumatic, PERRLA, EOMI, Normocephalic Oral: Moist Mucosa Neck: Supple, No Nuchal Rigidity, Trachea Midline, Thyroid Normal Size and Texture Lungs: Clear to auscultation, No rhonchi, No wheeze, No rales, Diminished Cardiovascular: Regular rate, Regular Rhythm, Normal S1, Normal S2, No murmurs, No Ectopic Activity Abdomen: Bowel Sounds Present, Soft, Non Tender, Non-Distended Extremities: No clubbing, No cyanosis, Capillary Refill Less than 3 Seconds Skin: No rashes, No breakdown Neurological: Cranial nerves II-XII grossly intact, Neuro grossly intact, Sensory exam intact to light touch and pain, Coordination normal Psych/Mental Status: Normal Affect, Appropriate, Alert and oriented to time, place, person, mood and affect Vital Signs Temp Pulse Resp BP Pulse Ox 98.3 F 70 16 142/71 H 96 01/26/18 15:15 01/26/18 17:15 01/26/18 17:15 01/26/18 17:15 01/26/18 17:15 Oxygen Flow Rate (L/min) 3 Oxygen Delivery Method Nasal Cannula Weight: 83.4 kg Body Mass Index (BMI) 26.4 Intake and Output for Last 24 Hours 01/24/18 01/25/18 01/26/18 23:59 23:59 23:59 Intake Total 480 / 480 2469 / 2469 350 / 350 Output Total 3275 / 3275 2335 / 2335 Balance 480 / 480 -806 / -806 -1984 / -1984 Microbiology Past 72 Hours 01/22/18 03:42 Urine Culture - Final Urine, Clean Catch Culture exhibits no growth. 01/21/18 23:32 Blood Culture - Preliminary Blood Culture (Wb) - Anticubital Left No growth in 48 hours. Laboratory Tests Past 24 Hrs 01/25/18 01/25/18 01/26/18 18:00 21:29 05:22 WBC RBC Hgb Hct MCV MCH MCHC RDW RDW Differential Plt Count MPV Immature Gran % (Auto) Neut % (Auto) Lymph % (Auto) Cottle % (Auto) Eos % (Auto) Baso % (Auto) Absolute Neuts (auto) Absolute Lymphs (auto) Total Counted PT 17.8 H 15.9 H INR 1.5 1.3 APTT 35.4 Sodium Potassium Chloride Carbon Dioxide Anion Gap BUN Creatinine Estim Creat Clear Calc Est GFR (MDRD) Af Amer Est GFR (MDRD) Non-Af BUN/Creatinine Ratio Glucose Calcium MRSA (PCR) POSITIVE H 01/26/18 01/26/18 05:22 05:22 WBC 8.3 RBC 3.59 L Hgb 10.5 L Hct 32.7 L MCV 91.1 MCH 29.2 MCHC 32.1 RDW 18.5 H RDW Differential 60.6 H Plt Count 139 L MPV 12.0 Immature Gran % (Auto) 0.200 Neut % (Auto) 82.1 H Lymph % (Auto) 11.5 L Cottle % (Auto) 6.2 Eos % (Auto) 0.0 Baso % (Auto) 0.0 Absolute Neuts (auto) 6.8 Absolute Lymphs (auto) 0.95 Total Counted Not Reportable PT INR APTT Sodium 142 Potassium 4.3 Chloride 101 Carbon Dioxide 32.0 Anion Gap 9 BUN 30 H Creatinine 1.45 H Estim Creat Clear Calc 42.65 Est GFR (MDRD) Af Amer 60 Est GFR (MDRD) Non-Af 50 L BUN/Creatinine Ratio 20.7 H Glucose 113 H Calcium 8.8 MRSA (PCR) Medical Necessity - Tobacco Use Smoking Status: Current every day smoker Tobacco Use: Cigarettes Assessment/Plan All Active Problems (Last Updated 01/24/18 @ 08:34 by Modesto Mclaughlin DO) Fever (Acute) CHF (congestive heart failure) (Acute) COPD (chronic obstructive pulmonary disease) (Acute) Intractable low back pain (Acute) Shortness of breath (Acute) Aspiration pneumonia (Resolved) S/P TURP (status post transurethral resection of prostate) (Resolved) pacemaker implantation (Resolved) History of inguinal hernia repair (Resolved) History of hemorrhoidectomy (Resolved) History of prostatectomy (Resolved) right ochiectomy (Resolved) History of appendectomy (Resolved) Palpitations (Acute) Dizziness and giddiness (Resolved) Syncope (Resolved) Cough (Resolved) Dyspnea (Acute) Bronchitis (Resolved) Acute respiratory failure with hypoxia (Acute) Malaise and fatigue (Acute) Respiratory failure with hypoxia (Resolved) Unstable angina (Resolved) Chest pain (Resolved) Acute kidney injury (Resolved) Sepsis (Resolved) #1 acute low back pain secondary to degenerative disc disease lumbar spine- patient's back pain has improved, continue prednisone #2 acute hypoxic respiratory failure-secondary to acute diastolic CHF with an overlay of severe COPD-continue IV Lasix #3 severe COPD-continue aerosol treatments and prednisone #4 chronic paroxysmal atrial fibrillation-patient is now atrially paced since his generator replacement, patient is not ventricularly paced at this time #5 dementia by history #6 Coronary artery disease #7 hypertension #8 elevated creatinine-probably secondary to chronic kidney disease stage III secondary to hypertension with an overlay of diuresis due to his CHF, BMP will be rechecked tomorrow #9 moderate pulmonary hypertension Code Visit Inpatient E&M: 54997 Subs Hosp L2
[2018-01-26] MEDS: DiphenhydrAMINE 25 MG Capsule PO (21:06)
[2018-01-26] MEDS: MELATONIN 10 MG TABLET PO (21:06)
[2018-01-26] MEDS: Atorvastatin Calcium 40 MG Tablet PO (21:06)
[2018-01-26] MEDS: Acetaminophen 500 MG Tablet PO (21:06)
[2018-01-26] MEDS: Pregabalin 75 MG Capsule 300 MG PO (21:12)
[2018-01-26] MEDS: Donepezil HCl 10 MG Tablet PO (21:12)
[2018-01-27] VITALS (8 sets, daily range): BP systolic 113–157; BP diastolic 62–99; PULSE 70–82; RESP 16–18; TEMP 36.4–36.6; O2SAT 90–94
[2018-01-27] MEDS: Furosemide 40 MG/4 ML Vial IV ×2 (06:25→13:02)
[2018-01-27] MEDS: Pregabalin 50 MG Capsule 100 MG PO (06:27)
[2018-01-27 07:08] LABS: Anion Gap 7 (5-15); BUN 36 mg/dL (7-18); BUN/Creat Ratio 26.1 RATIO (10-20); Calcium,Total 8.8 mg/dL (8.5-10.1); Chloride 99 mmol/L (98-107); Creatinine, Serum 1.38 mg/dL (0.70-1.30); EST Glomerular Filtration Rate 53 mL/min (>60); Est Glom Filt Rate - Afr Amer 64 mL/min (>60); Estimated Creatinine Clearance 44.82 ml/min; Glucose 117 mg/dL (74-106); Potassium 4.2 mmol/L (3.5-5.1); Sodium Level 137 mmol/L (136-145)
[2018-01-27] MEDS: Ipratropium/Albuterol Sulfate 3 ML AMPUL.NEB INHALATION (07:28)
[2018-01-27] MEDS: predniSONE 20 MG Tablet PO (08:18)
[2018-01-27] MEDS: Pantoprazole Sodium 20 MG Tablet PO (08:18)
[2018-01-27] MEDS: DULoxetine Hcl 30 MG Capsule 60 MG PO (08:19)
[2018-01-27] MEDS: Aspirin 81 MG TAB.CHEW PO (08:20)
[2018-01-27] MEDS: Cyanocobalamin 500 MCG Tablet PO (08:21)
[2018-01-27] MEDS: Senna Tablet 1 TABLET PO (08:22)
--- NOTE | 2018-01-27 11:53 | PCM.TXEXTCAR ---
- Diet 01/26/18 13:06 Diet: Cardiac/Low Cholesterol Is pt able to select menu?: Yes - Routine Orders/Code Status O2 Liters per Minute: 3 O2 Frequency: patient to use own CPAP when sleeping Code Status: DNRCC-A - Wound(s) L ELBOW Wound Type: SCAB L upper chest Wound Type: Surgical Incision Dressing Change: no dressing change - Therapies Weight Bearing: Full weight bearing Physical Therapy: Eval and Treat Occupational Therapy: Eval and Treat - Problem/Diagnosis (1) CHF (congestive heart failure) Status: Acute Comment: diastolic Current Visit: Yes (2) COPD (chronic obstructive pulmonary disease) Status: Acute Current Visit: Yes (3) Intractable low back pain Status: Acute Current Visit: No (4) Stage 2 moderate COPD by GOLD classification Status: Chronic Current Visit: No (5) Acute respiratory failure with hypoxia Status: Acute Current Visit: No (6) HLD (hyperlipidemia) Status: Chronic Current Visit: No (7) HTN (hypertension) Status: Chronic Current Visit: No (8) Pulmonary hypertension Status: Chronic Current Visit: Yes (9) ALRENE (obstructive sleep apnea) Status: Chronic Current Visit: No (10) SSS (sick sinus syndrome) Status: Chronic Current Visit: No (11) Atrial fibrillation Status: Chronic Comment: will be placed on Xarelto shortly by cardiology Current Visit: No - Allergies/Procedures Done in Hospital Allergies/Adverse Reactions: Allergies lactose Allergy (Severe, Verified 01/21/18 23:13) unknown Penicillins Allergy (Severe, Verified 01/21/18 23:13) Anaphylaxis adhesive Allergy (Verified 01/21/18 23:13) Rash Sulfa (Sulfonamide Antibiotics) Allergy (Verified 01/21/18 23:13) Unknown diazepam [From Valium] Adverse Reaction (Verified 01/21/18 23:13) hyper opposite effect desired HYPER OPPOSITE EFFECT DESIRED niacin [From Niaspan Extended-Release] Adverse Reaction (Verified 01/21/18 23:13) low bp LOW BP simvastatin Adverse Reaction (Verified 01/21/18 23:13) Pain in joints Procedures: 2-D Echocardiogram, - - pacer generator change - Type of Care/Length of Stay Estimated LOS: Convalescent Care Less Than 30 days Type of Care Needed: Skilled Rehab Potential: Good Prognosis: Good - Additional Orders/Day of Discharge H&P will serve as current which was dated: 01/22/18 Day of Discharge: 01/27/18 - Follow Up Care Primary Care Physician: Stephanie Fuchs MD [Primary Care Provider] - Please follow up with your Primary Care Physician in: in 3 weeks When: PACER CLINIC Wednesday 10;30 AM Please Follow Up With: Pacer check Please Follow Up With: Clint Skinner MD When: call office for appointment Please Follow Up With: Apollo Lindsey MD When: call office for appointment
--- NOTE | 2018-01-27 11:57 | TREXTCAR_ITS ---
- Diet 01/26/18 13:06 Diet: Cardiac/Low Cholesterol Is pt able to select menu?: Yes - Routine Orders/Code Status O2 Liters per Minute: 3 O2 Frequency: patient to use own CPAP when sleeping Code Status: DNRCC-A - Wound(s) L ELBOW Wound Type: SCAB L upper chest Wound Type: Surgical Incision Dressing Change: no dressing change - Therapies Weight Bearing: Full weight bearing Physical Therapy: Eval and Treat Occupational Therapy: Eval and Treat - Problem/Diagnosis (1) CHF (congestive heart failure) Status: Acute Comment: diastolic Current Visit: Yes (2) COPD (chronic obstructive pulmonary disease) Status: Acute Current Visit: Yes (3) Intractable low back pain Status: Acute Current Visit: No (4) Stage 2 moderate COPD by GOLD classification Status: Chronic Current Visit: No (5) Acute respiratory failure with hypoxia Status: Acute Current Visit: No (6) HLD (hyperlipidemia) Status: Chronic Current Visit: No (7) HTN (hypertension) Status: Chronic Current Visit: No (8) Pulmonary hypertension Status: Chronic Current Visit: Yes (9) ARLENE (obstructive sleep apnea) Status: Chronic Current Visit: No (10) SSS (sick sinus syndrome) Status: Chronic Current Visit: No (11) Atrial fibrillation Status: Chronic Comment: will be placed on Xarelto shortly by cardiology Current Visit: No - Allergies/Procedures Done in Hospital Allergies/Adverse Reactions: Allergies lactose Allergy (Severe, Verified 01/21/18 23:13) unknown Penicillins Allergy (Severe, Verified 01/21/18 23:13) Anaphylaxis adhesive Allergy (Verified 01/21/18 23:13) Rash Sulfa (Sulfonamide Antibiotics) Allergy (Verified 01/21/18 23:13) Unknown diazepam [From Valium] Adverse Reaction (Verified 01/21/18 23:13) hyper opposite effect desired HYPER OPPOSITE EFFECT DESIRED niacin [From Niaspan Extended-Release] Adverse Reaction (Verified 01/21/18 23:13) low bp LOW BP simvastatin Adverse Reaction (Verified 01/21/18 23:13) Pain in joints Procedures: 2-D Echocardiogram, - - pacer generator change - Type of Care/Length of Stay Estimated LOS: Convalescent Care Less Than 30 days Type of Care Needed: Skilled Rehab Potential: Good Prognosis: Good - Additional Orders/Day of Discharge H&P will serve as current which was dated: 01/22/18 Day of Discharge: 01/27/18 - Follow Up Care Primary Care Physician: Stephanie uFchs MD [Primary Care Provider] - Please follow up with your Primary Care Physician in: in 3 weeks When: PACER CLINIC Wednesday 10;30 AM Please Follow Up With: Pacer check Please Follow Up With: Clint Skinner MD When: call office for appointment Please Follow Up With: Apollo Lindsey MD When: call office for appointment
--- NOTE | 2018-01-27 12:41 | CASEMGMT ---
Patient ready for discharge to [place]. Faxed orders to [facility]. Called [facility] and arranged for patient to get picked up at 230 pm via [employer] van. SW notified patient, his , and his daughter. SW also let them know that it is not covered by insurance and it will be around $50 base fee and then $4.50 per mile. They verbalized understanding. MARY also notified RN, vp customer service, and Lauren at [facility]. Convalescent completed on . Plan: d/c to [place] under skilled level of care on a convalescent stay. [facility] transported via [employer]. Erika ESCALERA MSW
--- NOTE | 2018-01-27 18:04 | DS.PCM_ITS ---
Discharge Date and Diagnosis Date of Admission: 01/22/18 Date of Discharge: 01/27/18 - Primary Discharge Diagnosis 1 acute low back pain secondary to degenerative disc disease lumbar spine #2 acute diastolic congestive heart failure #3 acute hypoxic respiratory failure-secondary to acute diastolic CHF with an overlay of severe COPD #4 severe COPD #5 Sick sinus syndrome with pacemaker generator malfunction #6 pulmonary hypertension #7 dementia by history #8 Coronary artery disease #9 hypertension #10 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 #11 paroxysmal atrial fibrillation #12 obstructive sleep apnea - Secondary Discharge Diagnosis Chronic Problems (Last Updated 01/24/18 @ 08:34 by Modesto Mclaughlin DO) Pulmonary hypertension (Chronic) Tobacco abuse (Chronic) AAA (abdominal aortic aneurysm) (Chronic) PVD (peripheral vascular disease) (Chronic) Long-term use of high-risk medication (Chronic) Stage 2 moderate COPD by GOLD classification (Chronic) ARLENE (obstructive sleep apnea) (Chronic) Central sleep apnea (Chronic) S/P PTCA (percutaneous transluminal coronary angioplasty) (Chronic) Cardiomyopathy (Chronic) SSS (sick sinus syndrome) (Chronic) Autonomic dysfunction (Chronic) HLD (hyperlipidemia) (Chronic) PAD (peripheral artery disease) (Chronic) Community acquired pneumonia (Chronic) Coronary artery disease (Chronic) S/P LAD and LCx stenting BPH (benign prostatic hypertrophy) with urinary obstruction (Chronic) Depressive disorder (Chronic) HTN (hypertension) (Chronic) Atrial fibrillation (Chronic) will be placed on Xarelto shortly by cardiology GERD (gastroesophageal reflux disease) (Chronic) History of orchiectomy, unilateral (Chronic) Pacemaker (Chronic) Nephrolithiasis (Chronic) Personality disorder (Chronic) Hospital Course and Treatment Operations: None Procedures: 2-D Echocardiogram, - - Pacemaker generator change Summary of Care Provided: The patient is a 77 year old M was seen in the emergency room at [facility] with a chief complaint of low back pain. Patient has a history of degenerative joint disease of the lumbar spine. He also has a complicated medical history including coronary artery disease, COPD, hypertension, sick sinus syndrome, and paroxysmal atrial fib. Evaluation in the emergency room included a CT of the abdomen which showed no acute process, a 3.3 cm infrarenal aortic aneurysm was noted, EKG showed a paced rhythm at a rate of 68. Patient's INR was subtherapeutic at 1.3. Patient's temperature was elevated at 101.4, patient's chest x-ray showed no acute process, influenza test was negative. Patient was admitted to PCU for uncontrolled low back pain and fever. Initially it was felt that the patient might have pneumonia and he was placed on IV antibiotics. I evaluated the patient subsequently and felt that he did not need IV antibiotics and a CT of the chest was performed which showed bilateral upper lobe infiltrates with a groundglass appearance as well as severe chronic obstructive pulmonary disease. Patient required supplemental oxygen up to 6 L during his hospital stay to maintain his pulse ox above 90%. Patient was seen in consultation by infectious diseases who did not feel patient had an active pneumonia, labs were obtained which did show an elevated beta natruretic peptide and there were concerns that the patient did indeed have diastolic congestive heart failure. Echocardiogram revealed a normal ejection fraction but pulmonary hypertension. Patient was seen by PT and OT due to debility. Patient was dillon grace on IV corticosteroids for both COPD and degenerative disc disease of the lumbar spine and transitioned to oral prednisone. Finally, it was noted that the patient lost his atrial pacing on the monitor and he had a recent pacemaker check which showed a low generator, pacemaker check was performed and it showed the need for replacement of the pacemaker generator which was undertaken on 01/26/18 and went without incident. Patient was maintained on IV Lasix during his hospital stay and his oxygenation improved. Patient initially was placed back on his Coumadin but this had to be reversed with fresh frozen plasma and vitamin K when it was decided that the patient needed a pacemaker generator change. On 01/27/18, patient was seen and examined by myself and felt to be in stable condition for discharge to an extended care facility for inpatient rehab. Cardiology wish the patient to remain off anticoagulation until he was seen in follow-up at their office. It was noted that the patient's insurance plan would cover Xarelto at least partially and the patient consented to go on this medication in the near future if he needed it. Physical exam: On examination he appeared in good health and spirits. Vital signs as documented. Skin warm and dry and without overt rashes. Neck without JVD. Lungs-breath sounds are distant bilaterally, there are some fine rales at the bases on inspiration bilaterally. Heart exam notable for regular rhythm- patient is atrially paced, normal sounds and absence of murmurs, rubs or gallops. Abdomen unremarkable and without evidence of organomegaly, masses, or abdominal aortic enlargement. Extremities nonedematous. Neuro: Cranial nerves II through XII are grossly intact, no focal neurological deficits were noted. Psych: Patient was alert and oriented x3 and appeared appropriate. - Physical Exam Vital Signs Temp Pulse Resp BP Pulse Ox 97.5 F L 70 18 113/62 94 01/27/18 08:55 01/27/18 11:14 01/27/18 10:01 01/27/18 08:55 01/27/18 08:55 Oxygen Flow Rate (L/min) 2.5 Oxygen Delivery Method Nasal Cannula Weight: 83.4 kg Body Mass Index (BMI) 26.4 Intake and Output for Last 24 Hours 01/25/18 01/26/18 01/27/18 23:59 23:59 23:59 Intake Total 2469 / 2469 590 / 590 560 / 560 Output Total 3275 / 3275 3560 / 3560 425 / 425 Balance -806 / -806 -2970 / -2970 135 / 135 Microbiology Past 72 Hours 01/21/18 23:32 Blood Culture - Final Blood Culture (Wb) - Anticubital Left No growth in 5 days. Laboratory Tests Past 24 Hrs 01/27/18 05:50 Sodium 137 Potassium 4.2 Chloride 99 Carbon Dioxide 31.0 Anion Gap 7 BUN 36 H Creatinine 1.38 H Estim Creat Clear Calc 44.82 Est GFR (MDRD) Af Amer 64 Est GFR (MDRD) Non-Af 53 L BUN/Creatinine Ratio 26.1 H Glucose 117 H Calcium 8.8 Discharge Diet: No Restrictions Discharge Activity: May Not Drive Call your doctor if your incision/area has: Continuous Slow Oozing, Sudden Increased Bleeding, Increased Pain/ Swelling, Increased Redness, Foul Smelling Discharge, Swelling at the incision site Call your doctor if you observe: Fever of 101 or Higher, Shortness of breath, Dizziness, Fainting spells, Swelling in the ankles, Chest pain, Prolonged hiccoughing, Increased palpitations (irregular heartbeat) Suture Line Care: Avoid Pulling/Pushing, Avoid Pinching/Bending Cleanse incision/area with: Do not get Incision Wet, Keep Dressing Clean & Dry Additional Dressing/Incision Instructions:: When dressing is removed, wash and dry incision. Keep covered with a light bandage if it is rubbing against your clothing. Do not cover the incision with an airtight bandage. Change the bandage daily. Do not remove steri strips. The strips will fall off on their own. Home Medications: Medications to take at Discharge Atorvastatin Calcium [Lipitor] 40 mg PO QHS 06/18/17 Cholecalciferol (Vitamin D3) [Vitamin D3] 1 tab PO DAILY 06/18/17 Cyanocobalamin [Vitamin B12] 1 tab PO DAILY 06/18/17 Melatonin 10 mg PO QHS 06/18/17 Omeprazole 20 mg PO DAILY 06/18/17 Vit A/Vit C/Vit E/Zinc/Copper [Preservision Areds Softgel] 1 ea PO BID 06/18/17 Aspirin 81 mg PO DAILY 01/22/18 Budesonide/Formoterol 160/4.5 [Symbicort 160/4.5 Mcg Inhaler (SP)] 2 puff INHALATION BID 01/22/18 Acetaminophen [Tylenol] 500 mg PO HS tablet 01/27/18 Albuterol Aerosols [Ventolin Aerosols] 2.5 mg INHALATION Q2H PRN PRN vial.neb. 01/27/18 Donepezil HCl [Aricept] 10 mg PO QHS tablet 01/27/18 Duloxetine Hcl [Cymbalta] 60 mg PO DAILY capsule 01/27/18 Furosemide [Lasix] 40 mg PO BIDLX #1 tablet 01/27/18 Ipratropium/Albuterol Sulfate [Duoneb] 3 ml INHALATION Q6HWA.RT ampul.neb 01/27/18 Oxycodone [Oxyir] 10 mg PO Q6H PRN PRN 7 Days #30 tab 01/27/18 Potassium Chloride [K-Dur] 20 meq PO BIDCM tablet 01/27/18 Prednisone 10 mg PO UD #30 tablet 01/27/18 Pregabalin [Lyrica] 100 mg PO DAILY #0 01/27/18 Pregabalin [Lyrica] 300 mg PO QHS #7 01/27/18 Senna [Senokot] 1 tablet PO BID tablet 01/27/18 Tamsulosin HCl [Flomax] 0.4 mg PO DAILY@1730 capsule 01/27/18 Following Prescrptions Were Given to Patient: Oxycodone [Oxyir] 10 mg PO Q6H PRN PRN 7 Days #30 tab PRN Reason: Moderate Pain (4-5/10) Furosemide [Lasix] 40 mg PO BIDLX #1 tablet Prednisone 10 mg PO UD #30 tablet Primary Care Physician: Stephanie Fuchs MD [Primary Care Provider] - Please follow up with your Primary Care Physician in: in 3 weeks When: PACER CLINIC Wednesday 10;30 AM Please Follow Up With: Pacer check Please Follow Up With: Clint Skinner MD When: call office for appointment Please Follow Up With: Apollo Lindsey MD When: call office for appointment Additional Instructions: Signs and Symptoms to Report to Your Doctor at Once - call your doctor's office or Doctor's Registry ([phone]) Call 911 or go to the nearest Emergency Department if you feel you need urgent care. *Infection (fever, increased redness or swelling at the incision site, drainage from the incision increased pain at the pacemaker site) *Shortness of breath *Dizziness *Fainting spells *Swelling in the ankles *Chest pain *Prolonged hiccoughing *Increased palpitaitons (irregular heartbeat) Medications: Take your pain medication as directed. Refer to your discharge instruction sheet for a list of medications you are to take. Disposition: Long Term facility Minutes spent on discharge:: 32 Patient Condition:: Stable Medical Necessity - Tobacco Use Smoking Status: Current every day smoker Tobacco Use: Cigarettes Meaningful Use Info Meaningful Use Diagnoses (Choose all that apply): CHF - CHF GEETA/ARB ordered at discharge?: No Reason GEETA/ARB not ordered?: Allergy - Patient's ejection fraction is normal Documented LVEF (%): 55 Code Visit Inpatient E&M: 59397 Disch Hosp
== END 2018-01-27 14:17 | disposition skilled nursing facility (03) | DRG 987 ==
LOC: ED 01-22 00:46 → PCU 01-22 05:52
PROVIDERS: Family Medicine; Internal Medicine Cardiovascular Disease; Admitting Provider Hospitalist; Emergency Provider Emergency Medicine; Family Provider Internal Medicine; PCP Internal Medicine; Visit Provider Internal Medicine
DX: M51.36 Other intervertebral disc degeneration, lumbar region (principal); J96.01 Acute respiratory failure with hypoxia; I50.31 Acute diastolic (congestive) heart failure; I13.0 Hypertensive heart and chronic kidney disease with heart failure and stage 1 through stage 4 chronic kidney disease, or unspecified chronic kidney disease; E78.5 Hyperlipidemia, unspecified; G89.29 Other chronic pain; I71.4 Abdominal aortic aneurysm, without rupture; F03.90 Unspecified dementia, unspecified severity, without behavioral disturbance, psychotic disturbance, mood disturbance, and anxiety; F17.210 Nicotine dependence, cigarettes, uncomplicated; I73.9 Peripheral vascular disease, unspecified; G90.9 Disorder of the autonomic nervous system, unspecified; R79.1 Abnormal coagulation profile; I25.10 Atherosclerotic heart disease of native coronary artery without angina pectoris; I48.0 Paroxysmal atrial fibrillation; Z45.010 Encounter for checking and testing of cardiac pacemaker pulse generator [battery]; Z79.01 Long term (current) use of anticoagulants; I27.20 Pulmonary hypertension, unspecified; N18.3 Chronic kidney disease, stage 3 (moderate); Z88.0 Allergy status to penicillin; J44.9 Chronic obstructive pulmonary disease, unspecified; G47.33 Obstructive sleep apnea (adult) (pediatric); Z95.5 Presence of coronary angioplasty implant and graft; N40.0 Benign prostatic hyperplasia without lower urinary tract symptoms
CPT/HCPCS: 33228; 36415; 71045; 71250; 74177; 80048; 80053; 81001; 83605; 83880; 84484; 85025; 85610; 85730; 86644; 86900; 87040; 87086; 87633; 87641; 87804; 93005; 93306; 94640; 97110; 97162; 97165; 97530; 97802; 99152; 99153; 99285; 99406; J7030; J7040; J7050; P9017; P9612; Q9967; A4216; J0696; J1940; J2405

== ENCOUNTER 2018-03-16 11:15 | Inpatient (IN) | payer MEDICARE, OTHER, SELFPAY ==
[2018-03-14 13:01] VITALS: BMI 24.8
[2018-03-16] VITALS (7 sets, daily range): BP systolic 103–180; BP diastolic 71–86; PULSE 70–74; RESP 15–18; TEMP 36.8–37; O2SAT 86–98; BMI 26.9; BMI 25.1
--- NOTE | 2018-03-16 11:55 | ED.VIS.GEN ---
History of Present Illness Chief Complaint: Back Informant: Patient Onset: Days - 2-3 Context: Gradual Onset Timing: Continuous Quality: pain Location: head, neck, into shoulders/trapezius Current Severity: Severe Maximum Severity: Severe Worsened by: moving Relieved by: remaining still Associated Symptoms: fever this AM 99.2 Narrative: Patient had gradual onset of global headache, pain/stiffness in his neck, with the pain going down into the trapezius on each side toward his shoulders. He really is not having new symptoms elsewhere, no confusion. No recent injury, he can think of nothing that he did to cause a neck muscle strain, but he cannot move his head because it hurts his neck so bad to do so. He has chronic numbness in both lower extremities from peripheral neuropathy, with occasional numbness in his left upper extremity as well, unchanged in the last couple days. No vision symptoms. No weakness. No cough. Has chronic COPD and is chronically dyspneic with exertion and that is unchanged. Mild sore throat, no earache or other upper respiratory symptoms. He did have an influenza vaccine this year, it was administered just 1-2 weeks ago and he states he still feels sore in his left shoulder from the shot. At this time, only very few positive influenza swabs have been seen this season at this hospital. Prior similar symptoms: No - Past Medical History (1) CHF (congestive heart failure) Status: Chronic Comment: diastolic (2) COPD (chronic obstructive pulmonary disease) Status: Chronic (3) Atrial fibrillation Status: Chronic (4) BPH (benign prostatic hypertrophy) with urinary obstruction Status: Chronic (5) Coronary artery disease Status: Chronic Comment: S/P LAD and LCx stenting (6) Depressive disorder Status: Chronic (7) GERD (gastroesophageal reflux disease) Status: Chronic (8) HLD (hyperlipidemia) Status: Chronic (9) HTN (hypertension) Status: Chronic (10) ARLENE (obstructive sleep apnea) Status: Chronic (11) PAD (peripheral artery disease) Status: Chronic (12) Pacemaker Status: Chronic (13) Personality disorder Status: Chronic (14) Pulmonary hypertension Status: Chronic (15) SSS (sick sinus syndrome) Status: Chronic Past Medical History - Allergies and Home Meds Allergies/Adverse Reactions: Allergies lactose Allergy (Severe, Verified 03/16/18 11:21) unknown Penicillins Allergy (Severe, Verified 03/16/18 11:21) Anaphylaxis adhesive Allergy (Verified 03/16/18 11:21) Rash Sulfa (Sulfonamide Antibiotics) Allergy (Verified 03/16/18 11:21) Unknown diazepam [From Valium] Adverse Reaction (Verified 03/16/18 11:21) hyper opposite effect desired HYPER OPPOSITE EFFECT DESIRED niacin [From Niaspan Extended-Release] Adverse Reaction (Verified 03/16/18 11:21) low bp LOW BP simvastatin Adverse Reaction (Verified 03/16/18 11:21) Pain in joints Primary Care Physician: Stephanie Fuchs MD [Primary Care Provider] - Surgical History: angioplasty, appendectomy, cholecystectomy, herniorrhaphy Smoking Status: Current every day smoker - Family History Paternal Family History: Family History (Last Reviewed 03/14/18 @ 13:10 by Mariya Holden) Father CAD (coronary artery disease) Mother Breast cancer Arthritis CAD (coronary artery disease) Hypertension Sister CVA (cerebral vascular accident) Diabetes Hypertension Son CAD (coronary artery disease) Hypertension Family History: Reports: Heart Disease, Renal Disease Sibling Family History: Family History (Last Reviewed 03/14/18 @ 13:10 by Mariya Holden) Father CAD (coronary artery disease) Mother Breast cancer Arthritis CAD (coronary artery disease) Hypertension Sister CVA (cerebral vascular accident) Diabetes Hypertension Son CAD (coronary artery disease) Hypertension Family History: Reports: Diabetes, Heart Disease Offspring Family History: Family History (Last Reviewed 03/14/18 @ 13:10 by Mariya Nolt) Father CAD (coronary artery disease) Mother Breast cancer Arthritis CAD (coronary artery disease) Hypertension Sister CVA (cerebral vascular accident) Diabetes Hypertension Son CAD (coronary artery disease) Hypertension Family History: Reports: Heart Disease Maternal Family History: Family History (Last Reviewed 03/14/18 @ 13:10 by Mariyamelinda Holden) Father CAD (coronary artery disease) Mother Breast cancer Arthritis CAD (coronary artery disease) Hypertension Sister CVA (cerebral vascular accident) Diabetes Hypertension Son CAD (coronary artery disease) Hypertension Family History: Reports: Cancer, Heart Disease Review of Systems General: Reports: Chills, Fever, Malaise. Denies: Sweats Eyes: Denies: Visual changes - bilaterally, Diplopia ENT: Reports: Sore throat. Denies: Bilateral ear pain, Rhinorrhea Cardiovascular: Denies: Chest pain, Palpitations Respiratory: Reports: Dyspnea on exertion. Denies: Dyspnea, Cough Gastrointestinal: Denies: Abdominal pain, Nausea, Vomiting, Diarrhea, Melena, Hematochezia Genitourinary: Denies: Dysuria, Hematuria, Frequency Musculoskeletal: Reports: Neck pain, Back pain - acute upper to base of neck and trapezius bilat; chronic in low back, mild now.. Denies: Arthralgias, Swelling, Extremity Pain Skin: Denies: Rash, Abscess, Wounds Neurological: Reports: Numbness - chronic BLE, and intermittent LUE, - - no confusion. Denies: Headache, Weakness Physical Exam Vital Signs/Narrative: Vital Signs Temp Pulse Resp BP Pulse Ox 03/16/18 11:17 98.3 F 70 17 154/73 H 98 Inital Vital Signs reviewed: Yes General: Well nourished, Well developed Head: Normocephalic, Atraumatic Eyes: Perrl, EOMI ENT: Moist mucous membranes, No rhinorrhea, TM's clear, - - POP erythemetous, symmetric, w/o exudates or tonsillomegaly Neck: No lymphadenopathy, No JVD, - - Pt resistant to move. no detectable meningismus. Cannot move chin toward chest. Negative Kernig. point tender in mid-cervical lateral right neck musculature, w/o mastoid or LN tenderness, but only in one particular spot w/o any overlying skin abn or palpable abn. Cardiovascular: Regular rate, Regular rhythm, No murmurs Respiratory: No distress, CTA bilaterally, Chest nontender, Decreased Air Movement - diffusely Abdomen: Soft, Nontender, Nondistended, Normal bowel sounds Back: Nontender, Normal Inspection Extremities: Nontender, No edema Skin: Normal color, No rash Neurological: Alert, Oriented x3, Cranial nerves II-XII grossly intact, Normal Strength, Normal Sensation Psychological: Normal affect Diagnostic/Tx/Re-eval Impressions Chest X-Ray 03/16/18 12:10 IMPRESSION: Mild increased markings at the right lung base as compared to prior study suggestive of atelectasis and/or early infiltrate. Electronically Signed: Stef Carlton MD at 12:40 EST Tel [phone], Service support , Brain CT 03/16/18 14:00 IMPRESSION: Chronic involutional changes of the brain. Electronically Signed: Stef Carlton MD at 14:35 EST Tel [phone], Service support , Cervical Spine CT 03/16/18 14:20 IMPRESSION: Multilevel degenerative changes, as described above. Electronically Signed: Stef Carlton MD at 14:43 EST Tel [phone], Service support , 03/16/18 12:10 Chest PA and Lateral [RAD] Stat 03/16/18 14:00 CT Head [Brain/Head without Contrast] [CT] Stat 03/16/18 14:20 CT Cervical [Spine Cervical without Contras] [CT] Stat 03/16/18 12:30 Mucosa - Throat Group A Streptococcus Rapid Screen - Preliminary 03/16/18 Unknown Mucosa - Nose Influenza Types A,B Direct FA (BRIAN) - Final Laboratory Results 03/16/18 03/16/18 03/16/18 11:55 11:55 13:50 WBC 10.1 RBC 3.83 L Hgb 10.8 L Hct 34.1 L MCV 89.0 MCH 28.2 MCHC 31.7 L RDW 17.0 H RDW Differential 54.5 H Plt Count 200 MPV 10.9 Immature Gran % (Auto) 0.300 Neut % (Auto) 79.8 H Lymph % (Auto) 8.3 L [place] % (Auto) 11.3 H Eos % (Auto) 0.2 Baso % (Auto) 0.1 Absolute Neuts (auto) 8.0 H Absolute Lymphs (auto) 0.84 Total Counted Not Reportable Sodium 139 Potassium 3.5 Chloride 106 Carbon Dioxide 26.0 Anion Gap 7 BUN 17 Creatinine 1.08 Estim Creat Clear Calc 57.27 Est GFR (MDRD) Af Amer 85 Est GFR (MDRD) Non-Af 70 BUN/Creatinine Ratio 15.7 Glucose 93 Calcium 8.6 Urine Color Yellow Urine Clarity Clear Urine pH 7.0 Ur Specific [place] 1.005 Urine Protein Negative Urine Glucose (UA) Normal Urine Ketones 5 H Urine Occult Blood Negative Urine Nitrite Negative Urine Bilirubin Negative Urine Urobilinogen Normal Ur Leukocyte Esterase 100 H Urine RBC 0 SEEN Urine WBC 0-5 SEEN Ur Squamous Epith Cells 0 SEEN Urine Bacteria 0 SEEN Urine Mucus 0 SEEN - Medical Decision Making Labs are unremarkable, chest x-ray shows the possibility of atelectasis versus infiltrate in the right base, however the patient really has not had symptoms of worsening COPD and with this ambiguous finding, which the patient states he has heard before on his x-ray, I suspect he does not have pneumonia. He is not coughing currently. His symptoms were managed with a couple doses of morphine, he was sent to CT for the brain given the fact that he is on Xarelto, and cervical spine. Both were negative for any acute abnormalities. Initially, I did not realize the patient had a history of A. fib and was on Xarelto. He did nothing to explain musculoskeletal pain of this degree in his neck, and my concern with low-grade temperatures, severe headache, and neck stiffness, is that he could have developed meningitis. We were going to do a lumbar puncture until I realized that he is on Xarelto, so we decided not to. Since he is very stable clinically and hemodynamically at this time, I think that the potential risks of an epidural hematoma outweigh the potential benefits until he has undergone a few half-lives and the Xarelto is no longer in effect. The patient does not want to go home, I think it is reasonable to admit him with empiric therapy and further testing tomorrow. He is comfortable with that plan, discussed with hospitalist. ED Disposition - Plan for ED Patient: Disposition: Acute Care Hospital [facility] Chief Complaint: Back Diagnosis: Intractable headache, Neck stiffness Referrals: Stephanie Fuchs MD [Primary Care Provider] -
[2018-03-16] MEDS: Morphine 4 MG/ML Syringe IV ×3 (11:58→18:33)
[2018-03-16 12:09] LABS: Absolute Lymphocyte Count 0.84 X10^3/ul (0.83-4.51); Basophil# 0.01 X10^3/uL; Basophil% 0.1 % (0-1); Eosinophil# 0.02 X10^3/uL; Eosinophils% 0.2 % (0-5); Hematocrit 34.1 % (40-54); Hemoglobin 10.8 g/dl (13.0-16.5); Lymphocyte # 0.84 X10^3/ul (4.0); Lymphocyte % 8.3 % (19-41); Mean Corp Hgb Conc 31.7 g/gl (32-36); Mean Corpuscular Hgb 28.2 pg (27.0-32.0); Mean Platelet Vol. 10.9 fl (6.2-12.0); Monocyte# 1.14 X10^3/uL; Monocyte% 11.3 % (0-10); Neutrophil # 8.04 X10^3/uL (2.7-7.7); Neutrophil % 79.8 % (47-70); Platelet Count 200 K/mm3 (150-450); RBC Distribution Width SD 54.5 fl (35.1-43.9); Red Blood Count 3.83 M/mm3 (4.6-6.2); White Blood Count 10.1 K/mm3 (4.4-11.0)
--- NOTE | 2018-03-16 12:10 | RAD_ITS ---
STUDY: X-RAY CHEST REASON FOR EXAM: Male, 77 years old. COPD. Fever. TECHNIQUE: AP and lateral views of the chest. COMPARISON: Comparison is made with prior study dated January 21, 2018. FINDINGS: EKG electrodes are seen. Elevation of the right hemidiaphragm. Increased markings at the right lung base suggestive of right basilar atelectasis and/or early infiltrate. There is no demonstrated pleural abnormality. There is borderline cardiomegaly. A left-sided dual-chamber pacemaker is seen. Normal mediastinum and elis. Normal visualized pulmonary arteries. There is atherosclerotic tortuosity of the aortic arch and descending thoracic aorta. There are diffuse degenerative changes of the visualized thoracic spine. Normal visualized ribs, clavicles, and shoulders. There is no demonstrated abnormality of the visualized soft tissue structures of the upper abdomen. RAD/Chest PA and Lateral IMPRESSION: Mild increased markings at the right lung base as compared to prior study suggestive of atelectasis and/or early infiltrate. Electronically Signed: Stef Carlton MD at 12:40 EST Tel [phone], Service support ,
[2018-03-16 12:18] LABS: POSITIVE COUNT NO; POSITIVE DIFFERENTIAL NO; POSITIVE MORPHOLOGY NO
[2018-03-16 12:22] LABS: Anion Gap 7 (5-15); BUN 17 mg/dL (7-18); BUN/Creat Ratio 15.7 RATIO (10-20); Calcium,Total 8.6 mg/dL (8.5-10.1); Chloride 106 mmol/L (98-107); Creatinine, Serum 1.08 mg/dL (0.70-1.30); EST Glomerular Filtration Rate 70 mL/min (>60); Est Glom Filt Rate - Afr Amer 85 mL/min (>60); Estimated Creatinine Clearance 57.27 ml/min; Glucose 93 mg/dL (74-106); Potassium 3.5 mmol/L (3.5-5.1); Sodium Level 139 mmol/L (136-145)
[2018-03-16 13:58] LABS: Bacteria 0 SEEN /hpf (None Seen); Mucous, Urine 0 SEEN /hpf (<or=2+); Red Blood Cells-Urine 0 SEEN /hpf (0-5); Squamous Epithelial Cells - UA 0 SEEN /hpf (0-5)
--- NOTE | 2018-03-16 14:00 | CT_ITS ---
STUDY: CT BRAIN WITHOUT CONTRAST REASON FOR EXAM: Male, 77 years old. 2 day history of neck pain and headaches. No known injury. RADIATION DOSAGE (If Supplied By Facility): CTDIvol = ( 44.99 ) mGy, DLP = ( 779.24 ) mGycm TECHNIQUE: Transaxial CT imaging of the brain was performed without administration of intravenous contrast material. Individualized dose optimization techniques were used for this CT. COMPARISON: Comparison is made with prior examination dated December 30, 2014. FINDINGS: Normal soft tissue structures. Normal calvarium. There is mild cerebral atrophy with widening of the extra-axial spaces and ventricular dilatation. There are areas of decreased attenuation within the white matter tracts of the supratentorial brain, consistent with microvascular disease changes. Stable small old lacunar infarcts in the basal ganglia bilaterally. Normal brainstem. There is mild cerebellar atrophy. There is no intracranial hemorrhage. There are no findings of an acute ischemic infarction. Normal visualized paranasal sinuses. CT/Brain/Head without Contrast IMPRESSION: Chronic involutional changes of the brain. Electronically Signed: Stef Carlton MD at 14:35 EST Tel [phone], Service support ,
[2018-03-16 14:07] LABS: Color, Urine Yellow (Yellow); Glucose, Dipstick Normal (Normal); Ketone-Dipstick 5 mg/dl (Negative); Leukocyte Esterase-Dipstick 100 /ul (Negative); Nitrite-Dipstick Negative (Negative); Occult Blood-Urine Negative /ul (Negative); Protein-Dipstick Negative (Negative); Specific Gravity, Urine 1.005 (1.002-1.030); Urine Bilirubin Dipstick Negative (Negative); Urine Clarity Clear (Clear); Urine Urobilinogen Normal (Normal)
--- NOTE | 2018-03-16 14:20 | CT_ITS ---
STUDY: CT CERVICAL SPINE WITHOUT CONTRAST REASON FOR EXAM: Male, 77 years old. 2 day history of neck pain. No known injury. Prior right carotid endarterectomy and prior neck surgery. RADIATION DOSAGE (If Supplied By Facility): CTDIvol = ( 18.41 ) mGy, DLP = ( 428.76 ) mGycm TECHNIQUE: High resolution transaxial imaging was performed without contrast material. Sagittal and coronal images were reconstructed. Individualized dose optimization techniques were used for this CT. COMPARISON: Comparison is made with prior examination dated December 30, 2014. FINDINGS: Normal craniovertebral junction. There are degenerative changes of the anterior atlantoaxial articulation. Normal odontoid process. There is straightening of the normal cervical lordosis. Fusion at the C6-C7 level. C2-3: Minimal degree of disc space narrowing. Minimal posterior disc bulge. C3-4: Minimal central posterior spondylosis. This causes minimal deformity of the thecal sac. Uncovertebral arthrosis. C4-5: Moderate degree of disc space narrowing. Uncovertebral arthrosis. Facet joint osteoarthritis worse on the left side. Bilateral neural foraminal stenosis worse on the left side. C5-6: Moderate degree of disc space narrowing. Uncovertebral arthrosis. Moderate degree of bilateral neural foraminal stenosis. C6-7: Fusion at the C6-C7 level. C7-T1: Normal endplates. Normal disc height and morphology. Normal central canal and intervertebral neuroforamina. Calcification of the left carotid bifurcation. CT/Spine Cervical without Contras IMPRESSION: Multilevel degenerative changes, as described above. Electronically Signed: Stef Carlton MD at 14:43 EST Tel [phone], Service support ,
[2018-03-16 14:27] LABS: White Blood Cells 0-5 SEEN /hpf (0-5)
--- NOTE | 2018-03-16 17:25 | PCM.HP.STD ---
Problem List (1) Intractable headache Status: Acute Qualifiers: Headache type: unspecified Headache chronicity pattern: acute headache Qualified Code(s): R51 - Headache (2) Neck stiffness Status: Acute History of Present Illness Date of Admission: 03/16/18 Chief Complaint: headache and neck pain. The patient is a 77 year old M who having some back pain for 3 days ago. Was hard for the patient to move. Today, the patient had a very severe headache and was not even able to move his neck as well. Patient presented to the emergency room for further evaluation. Patient did state that he was having some low-grade temperatures of around 9 ?F. Is never had anything like this before. Patient was admitted to the hospital in January for low back pain. Is hospitalization was comp gated by heart failure, respiratory failure. Patient was discharged to nursing home facility and patient did leave prior to his therapy services and being officially concluded. [] Past Medical History Past Medical History (Chronic Problems): Chronic Problems (Last Reviewed 03/16/18 @ 17:27 by Olvin Chopra DO) CHF (congestive heart failure) (Chronic) diastolic COPD (chronic obstructive pulmonary disease) (Chronic) Pulmonary hypertension (Chronic) Tobacco abuse (Chronic) AAA (abdominal aortic aneurysm) (Chronic) PVD (peripheral vascular disease) (Chronic) Long-term use of high-risk medication (Chronic) Stage 2 moderate COPD by GOLD classification (Chronic) Malaise and fatigue (Chronic) ARLENE (obstructive sleep apnea) (Chronic) Central sleep apnea (Chronic) S/P PTCA (percutaneous transluminal coronary angioplasty) (Chronic) Cardiomyopathy (Chronic) SSS (sick sinus syndrome) (Chronic) Autonomic dysfunction (Chronic) HLD (hyperlipidemia) (Chronic) PAD (peripheral artery disease) (Chronic) Community acquired pneumonia (Chronic) Coronary artery disease (Chronic) S/P LAD and LCx stenting BPH (benign prostatic hypertrophy) with urinary obstruction (Chronic) Depressive disorder (Chronic) HTN (hypertension) (Chronic) Atrial fibrillation (Chronic) GERD (gastroesophageal reflux disease) (Chronic) History of orchiectomy, unilateral (Chronic) Pacemaker (Chronic) Nephrolithiasis (Chronic) Personality disorder (Chronic) Medical History: Medical History (Last Reviewed 03/16/18 @ 17:27 by Olvin Chopra DO) Fever (Acute) R50.9 CHF (congestive heart failure) (Chronic) I50.9 diastolic COPD (chronic obstructive pulmonary disease) (Chronic) J44.9 Pulmonary hypertension (Chronic) I27.20 Intractable low back pain (Acute) M54.5 Shortness of breath (Acute) R06.02 Aspiration pneumonia (Resolved) J69.0 Tobacco abuse (Chronic) Z72.0 AAA (abdominal aortic aneurysm) (Chronic) I71.4 PVD (peripheral vascular disease) (Chronic) I73.9 Palpitations (Acute) R00.2 Long-term use of high-risk medication (Chronic) Z79.899 Dizziness and giddiness (Resolved) R42 Syncope (Resolved) R55 Cough (Resolved) R05 Dyspnea (Acute) R06.00 Bronchitis (Resolved) J40 Stage 2 moderate COPD by GOLD classification (Chronic) J44.9 Acute respiratory failure with hypoxia (Acute) J96.01 Malaise and fatigue (Chronic) R53.81, R53.83 ARLENE (obstructive sleep apnea) (Chronic) G47.33 Central sleep apnea (Chronic) G47.31 Respiratory failure with hypoxia (Resolved) J96.91 Unstable angina (Resolved) Chest pain (Resolved) R07.9 Cardiomyopathy (Chronic) I42.9 SSS (sick sinus syndrome) (Chronic) I49.5 Autonomic dysfunction (Chronic) G90.9 HLD (hyperlipidemia) (Chronic) E78.5 PAD (peripheral artery disease) (Chronic) I73.9 Acute kidney injury (Acute) N17.9 Sepsis (Resolved) A41.9 Community acquired pneumonia (Chronic) J18.9 Coronary artery disease (Chronic) I25.10 S/P LAD and LCx stenting BPH (benign prostatic hypertrophy) with urinary obstruction (Chronic) N40.1, N13.8 Depressive disorder (Chronic) F32.9 HTN (hypertension) (Chronic) I10 Atrial fibrillation (Chronic) I48.91 GERD (gastroesophageal reflux disease) (Chronic) K21.9 Pacemaker (Chronic) Z95.0 Nephrolithiasis (Chronic) Personality disorder (Chronic) F60.9 Allergies lactose Allergy (Severe, Verified 03/16/18 11:21) unknown Penicillins Allergy (Severe, Verified 03/16/18 11:21) Anaphylaxis adhesive Allergy (Verified 03/16/18 11:21) Rash Sulfa (Sulfonamide Antibiotics) Allergy (Verified 03/16/18 11:21) Unknown diazepam [From Valium] Adverse Reaction (Verified 03/16/18 11:21) hyper opposite effect desired HYPER OPPOSITE EFFECT DESIRED niacin [From Niaspan Extended-Release] Adverse Reaction (Verified 03/16/18 11:21) low bp LOW BP simvastatin Adverse Reaction (Verified 03/16/18 11:21) Pain in joints Home Medications: Ambulatory Orders Medication Instructions Recorded Cholecalciferol (Vitamin D3) 1 tab PO DAILY 06/18/17 [Vitamin D3] Cyanocobalamin [Vitamin B12] 1 tab PO DAILY 06/18/17 Melatonin 10 mg PO QHS 06/18/17 Omeprazole 20 mg PO DAILY 06/18/17 Vit A/Vit C/Vit E/Zinc/Copper 1 cap PO BID 06/18/17 [Preservision Areds Softgel] Aspirin 81 mg PO DAILY 01/22/18 Donepezil HCl [Aricept] 10 mg PO QHS tab 01/27/18 Pregabalin [Lyrica] 300 mg PO QHS #7 01/27/18 Tamsulosin HCl [Flomax] 0.4 mg PO DAILY@1730 cap 01/27/18 rivaroxaban 15 mg tablet 15 mg PO QPM #90 tab 02/07/18 oxycodone 10 mg tablet 10 mg PO Q6H PRN tab 03/14/18 Duloxetine HCl 60 mg PO DAILY 03/16/18 Surgical History: Surgical History (Last Reviewed 03/16/18 @ 17:27 by Olvin Chopra DO) S/P TURP (status post transurethral resection of prostate) (Resolved) Z90.79 pacemaker implantation (Resolved) generator change History of inguinal hernia repair (Resolved) Z98.890, Z87.19 History of hemorrhoidectomy (Resolved) Z98.890 History of prostatectomy (Resolved) Z98.890, Z90.79 right ochiectomy (Resolved) History of appendectomy (Resolved) Z98.890, Z90.49 S/P PTCA (percutaneous transluminal coronary angioplasty) (Chronic) Z98.61 History of orchiectomy, unilateral (Chronic) Z90.79 Surgical History: angioplasty, appendectomy, cholecystectomy, herniorrhaphy Smoking Status: Current every day smoker - *Family History Paternal Family History: Family History (Last Reviewed 03/16/18 @ 17:27 by Olvin Chopra DO) Father CAD (coronary artery disease) Mother Breast cancer Arthritis CAD (coronary artery disease) Hypertension Sister CVA (cerebral vascular accident) Diabetes Hypertension Son CAD (coronary artery disease) Hypertension History Items: Heart Disease, Renal Disease Sibling Family History: Family History (Last Reviewed 03/16/18 @ 17:27 by Olvni Chopra DO) Father CAD (coronary artery disease) Mother Breast cancer Arthritis CAD (coronary artery disease) Hypertension Sister CVA (cerebral vascular accident) Diabetes Hypertension Son CAD (coronary artery disease) Hypertension History Items: Diabetes, Heart Disease Offspring Family History: Family History (Last Reviewed 03/16/18 @ 17:27 by Olvin Chopra DO) Father CAD (coronary artery disease) Mother Breast cancer Arthritis CAD (coronary artery disease) Hypertension Sister CVA (cerebral vascular accident) Diabetes Hypertension Son CAD (coronary artery disease) Hypertension History Items: Heart Disease Maternal Family History: Family History (Last Reviewed 03/16/18 @ 17:27 by Olvin Chopra DO) Father CAD (coronary artery disease) Mother Breast cancer Arthritis CAD (coronary artery disease) Hypertension Sister CVA (cerebral vascular accident) Diabetes Hypertension Son CAD (coronary artery disease) Hypertension History Items: Cancer, Heart Disease Review of Systems Constitutional: Reports: Chills, Fever. Denies: Anorexia, Night Sweats Eyes: Denies: Blurred vision, Double vision HEENT: Denies: Head Aches, Sinus Congestion, Sinus Drainage Cardiovascular: Denies: Chest Pain, Palpitations Respiratory: Denies: Cough, Shortness of breath at rest, Sputum production Gastrointestinal: Reports: Abdominal Pain - Chronic and intermittent, Diarrhea - Chronic and intermittent, Nausea - Chronic and intermittent Genitourinary: Reports: Dysuria - Chronic Musculoskeletal: Reports: Back Pain, Leg Pain. Denies: Arm Pain Skin: Denies: Rash, Wounds Neurological: Denies: Blurred vision, Double vision, Focal weakness, Numbness, Tingling Psychiatric: Denies: Anxiety, Depression Endocrine: Denies: Change in Body Habitus, Heat/ Cold Intolerance Hematologic/ Lymphatic: Denies: Easy Bruising, Easy Bleeding, Hx of blood clot Comment: A 10 point review systems otherwise negative except for as mentioned above and in the HPI. VTE Information - Inpt Only VTE Present on Admission: No VTE Mechan Device Prophylaxis: SCD's VTE Pharm Prophylaxis ordered?: No Reason prophylaxis not ordered:: Medical Contraindication - Being held for lumbar puncture. Can be resumed afterwards. Patient Problems: Active and Suspected Problems (Last Reviewed 03/16/18 @ 17:27 by Olvin Chopra DO) Intractable headache (Acute) Neck stiffness (Acute) - Physical Exam General: Alert, Cooperative, Well developed, Well nourished, - - Uncomfortable but pleasant demeanor. Afebrile. HEENT: Atraumatic, PERRLA, EOMI, Normocephalic Oral: Moist Mucosa, No Gingival or Mucosal Lesions/ Ulcerations Neck: No Nodes, Thyroid Normal Size and Texture Lungs: Clear to auscultation, Normal air movement, No rhonchi, No wheeze Cardiovascular: Regular rate, Regular Rhythm, Normal S1, Normal S2, No murmurs Abdomen: Bowel Sounds Present, Soft, Non Tender, Non-Distended, No Hepato-splenomegaly Extremities: No edema, No Calf Tenderness Skin: No rashes, No breakdown Musculoskeletal: No Muscle Wasting, - - Tender cervical paraspinal muscles. Neurological: Cranial nerves II-XII grossly intact, Neuro grossly intact, Motor Exam 5/5 strength throughout, - - Positive Kernig's sign Psych/Mental Status: Normal Affect, Appropriate Vital Signs Temp Pulse Resp BP Pulse Ox 36.8 C 74 15 168/86 H 96 03/16/18 11:17 03/16/18 17:12 03/16/18 17:12 03/16/18 17:12 03/16/18 17:12 Oxygen Flow Rate (L/min) 2 Oxygen Delivery Method Nasal Cannula Weight: 85 kg Body Mass Index (BMI) 26.9 Microbiology Past 72 Hours 03/16/18 12:30 Group A Streptococcus Rapid Screen - Preliminary Mucosa - Throat 03/16/18 Unknown Influenza Types A,B Direct FA (BRIAN) - Final Mucosa - Nose Laboratory Tests Past 24 Hrs 03/16/18 03/16/18 03/16/18 11:55 11:55 13:50 WBC 10.1 RBC 3.83 L Hgb 10.8 L Hct 34.1 L MCV 89.0 MCH 28.2 MCHC 31.7 L RDW 17.0 H RDW Differential 54.5 H Plt Count 200 MPV 10.9 Immature Gran % (Auto) 0.300 Neut % (Auto) 79.8 H Lymph % (Auto) 8.3 L [place] % (Auto) 11.3 H Eos % (Auto) 0.2 Baso % (Auto) 0.1 Absolute Neuts (auto) 8.0 H Absolute Lymphs (auto) 0.84 Total Counted Not Reportable Sodium 139 Potassium 3.5 Chloride 106 Carbon Dioxide 26.0 Anion Gap 7 BUN 17 Creatinine 1.08 Estim Creat Clear Calc 57.27 Est GFR (MDRD) Af Amer 85 Est GFR (MDRD) Non-Af 70 BUN/Creatinine Ratio 15.7 Glucose 93 Calcium 8.6 Urine Color Yellow Urine Clarity Clear Urine pH 7.0 Ur Specific [place] 1.005 Urine Protein Negative Urine Glucose (UA) Normal Urine Ketones 5 H Urine Occult Blood Negative Urine Nitrite Negative Urine Bilirubin Negative Urine Urobilinogen Normal Ur Leukocyte Esterase 100 H Urine RBC 0 SEEN Urine WBC 0-5 SEEN Ur Squamous Epith Cells 0 SEEN Urine Bacteria 0 SEEN Urine Mucus 0 SEEN Clinical Impression(s) from Imaging Studies Chest X-Ray 03/16/18 12:10 IMPRESSION: Mild increased markings at the right lung base as compared to prior study suggestive of atelectasis and/or early infiltrate. Electronically Signed: Stef Carlton MD at 12:40 EST Tel [phone], Service support , Brain CT 03/16/18 14:00 IMPRESSION: Chronic involutional changes of the brain. Electronically Signed: Stef Carlton MD at 14:35 EST Tel [phone], Service support , Cervical Spine CT 03/16/18 14:20 IMPRESSION: Multilevel degenerative changes, as described above. Electronically Signed: Stef Carlton MD at 14:43 EST Tel [phone], Service support , Assessment/Plan All Active Problems (Last Reviewed 03/16/18 @ 17:27 by Olvin Chopra DO) Intractable headache (Acute) Neck stiffness (Acute) Fever (Acute) Intractable low back pain (Acute) Shortness of breath (Acute) Aspiration pneumonia (Resolved) S/P TURP (status post transurethral resection of prostate) (Resolved) pacemaker implantation (Resolved) History of inguinal hernia repair (Resolved) History of hemorrhoidectomy (Resolved) History of prostatectomy (Resolved) right ochiectomy (Resolved) History of appendectomy (Resolved) Palpitations (Acute) Dizziness and giddiness (Resolved) Syncope (Resolved) Cough (Resolved) Dyspnea (Acute) Bronchitis (Resolved) Acute respiratory failure with hypoxia (Acute) Respiratory failure with hypoxia (Resolved) Unstable angina (Resolved) Chest pain (Resolved) Acute kidney injury (Acute) Sepsis (Resolved) 1. Intractable headache Unclear etiology at this time though the primary concern right now is for meningitis. Other possibilities could be related with encephalitis versus migraine versus tension type headache Since there is concern for meningitis, patient will need to have a lumbar puncture to rule out. Will order studies as well. Patient will be on empiric vancomycin and Rocephin. Given his age patient will also need to be on a penicillin or an equivalent. Given the patient has an allergy to penicillin patient will be put on aztreonam May start to de-escalate antibiotics based on culture results Other possibilities could be musculoskeletal which patient will have Flexeril as well as other pain medications. Given the severity of the patient's neck and back pain patient will be on narcotics as well which may aggravate headaches if this happens to be migraine but until we get further clear evidence to rule out infectious process this will be included at this time. Given that patient was having symptoms days prior to this this does not seem consistent with subarachnoid hemorrhage though cannot be ruled out that this is a possibility definitively. But if evidence of blood is present may consider transfer to tertiary facility for neurosurgery evaluation. 2. Neck and back pain May be musculoskeletal but cannot rule out meningismus at this time See above for further descriptions 3. Atrial fibrillation Will hold patient's Xarelto. Last dose of Xarelto was on the 27 at night. Additionally hold his aspirin. Not be noted, that the patient does not appear to be any kind of rate controlling medications. On telemetry, patient appears to be in sinus rhythm. 4. DVT prophylaxis: Patient be on SCDs. Resume his Xarelto after the lumbar puncture when appropriate. Code Visit Inpatient E&M: 49112 Init Hosp L3
--- NOTE | 2018-03-16 17:29 | HP.PCM_ITS ---
Problem List (1) Intractable headache Status: Acute Qualifiers: Headache type: unspecified Headache chronicity pattern: acute headache Qualified Code(s): R51 - Headache (2) Neck stiffness Status: Acute History of Present Illness Date of Admission: 03/16/18 Chief Complaint: headache and neck pain. The patient is a 77 year old M who having some back pain for 3 days ago. Was hard for the patient to move. Today, the patient had a very severe headache and was not even able to move his neck as well. Patient presented to the emergency room for further evaluation. Patient did state that he was having some low- grade temperatures of around 9 ?F. Is never had anything like this before. Patient was admitted to the hospital in January for low back pain. Is hospitalization was comp gated by heart failure, respiratory failure. [facility] was [facility] and patient did leave prior to his therapy services and being officially concluded. [] Past Medical History Past Medical History (Chronic Problems): Chronic Problems (Last Reviewed 03/16/18 @ 17:27 by Olvin Chopra DO) CHF (congestive heart failure) (Chronic) diastolic COPD (chronic obstructive pulmonary disease) (Chronic) Pulmonary hypertension (Chronic) Tobacco abuse (Chronic) AAA (abdominal aortic aneurysm) (Chronic) PVD (peripheral vascular disease) (Chronic) Long-term use of high-risk medication (Chronic) Stage 2 moderate COPD by GOLD classification (Chronic) Malaise and fatigue (Chronic) ARLENE (obstructive sleep apnea) (Chronic) Central sleep apnea (Chronic) S/P PTCA (percutaneous transluminal coronary angioplasty) (Chronic) Cardiomyopathy (Chronic) SSS (sick sinus syndrome) (Chronic) Autonomic dysfunction (Chronic) HLD (hyperlipidemia) (Chronic) PAD (peripheral artery disease) (Chronic) Community acquired pneumonia (Chronic) Coronary artery disease (Chronic) S/P LAD and LCx stenting BPH (benign prostatic hypertrophy) with urinary obstruction (Chronic) Depressive disorder (Chronic) HTN (hypertension) (Chronic) Atrial fibrillation (Chronic) GERD (gastroesophageal reflux disease) (Chronic) History of orchiectomy, unilateral (Chronic) Pacemaker (Chronic) Nephrolithiasis (Chronic) Personality disorder (Chronic) Medical History: Medical History (Last Reviewed 03/16/18 @ 17:27 by Olvin Chopra DO) Fever (Acute) R50.9 CHF (congestive heart failure) (Chronic) I50.9 diastolic COPD (chronic obstructive pulmonary disease) (Chronic) J44.9 Pulmonary hypertension (Chronic) I27.20 Intractable low back pain (Acute) M54.5 Shortness of breath (Acute) R06.02 Aspiration pneumonia (Resolved) J69.0 Tobacco abuse (Chronic) Z72.0 AAA (abdominal aortic aneurysm) (Chronic) I71.4 PVD (peripheral vascular disease) (Chronic) I73.9 Palpitations (Acute) R00.2 Long-term use of high-risk medication (Chronic) Z79.899 Dizziness and giddiness (Resolved) R42 Syncope (Resolved) R55 Cough (Resolved) R05 Dyspnea (Acute) R06.00 Bronchitis (Resolved) J40 Stage 2 moderate COPD by GOLD classification (Chronic) J44.9 Acute respiratory failure with hypoxia (Acute) J96.01 Malaise and fatigue (Chronic) R53.81, R53.83 ARLENE (obstructive sleep apnea) (Chronic) G47.33 Central sleep apnea (Chronic) G47.31 Respiratory failure with hypoxia (Resolved) J96.91 Unstable angina (Resolved) Chest pain (Resolved) R07.9 Cardiomyopathy (Chronic) I42.9 SSS (sick sinus syndrome) (Chronic) I49.5 Autonomic dysfunction (Chronic) G90.9 HLD (hyperlipidemia) (Chronic) E78.5 PAD (peripheral artery disease) (Chronic) I73.9 Acute kidney injury (Acute) N17.9 Sepsis (Resolved) A41.9 Community acquired pneumonia (Chronic) J18.9 Coronary artery disease (Chronic) I25.10 S/P LAD and LCx stenting BPH (benign prostatic hypertrophy) with urinary obstruction (Chronic) N40.1, N13.8 Depressive disorder (Chronic) F32.9 HTN (hypertension) (Chronic) I10 Atrial fibrillation (Chronic) I48.91 GERD (gastroesophageal reflux disease) (Chronic) K21.9 Pacemaker (Chronic) Z95.0 Nephrolithiasis (Chronic) Personality disorder (Chronic) F60.9 Allergies lactose Allergy (Severe, Verified 03/16/18 11:21) unknown Penicillins Allergy (Severe, Verified 03/16/18 11:21) Anaphylaxis adhesive Allergy (Verified 03/16/18 11:21) Rash Sulfa (Sulfonamide Antibiotics) Allergy (Verified 03/16/18 11:21) Unknown diazepam [From Valium] Adverse Reaction (Verified 03/16/18 11:21) hyper opposite effect desired HYPER OPPOSITE EFFECT DESIRED niacin [From Niaspan Extended-Release] Adverse Reaction (Verified 03/16/18 11:21) low bp LOW BP simvastatin Adverse Reaction (Verified 03/16/18 11:21) Pain in joints Home Medications: Ambulatory Orders Medication Instructions Recorded Cholecalciferol (Vitamin D3) 1 tab PO DAILY 06/18/17 [Vitamin D3] Cyanocobalamin [Vitamin B12] 1 tab PO DAILY 06/18/17 Melatonin 10 mg PO QHS 06/18/17 Omeprazole 20 mg PO DAILY 06/18/17 Vit A/Vit C/Vit E/Zinc/Copper 1 cap PO BID 06/18/17 [Preservision Areds Softgel] Aspirin 81 mg PO DAILY 01/22/18 Donepezil HCl [Aricept] 10 mg PO QHS tab 01/27/18 Pregabalin [Lyrica] 300 mg PO QHS #7 01/27/18 Tamsulosin HCl [Flomax] 0.4 mg PO DAILY@1730 cap 01/27/18 rivaroxaban 15 mg tablet 15 mg PO QPM #90 tab 02/07/18 oxycodone 10 mg tablet 10 mg PO Q6H PRN tab 03/14/18 Duloxetine HCl 60 mg PO DAILY 03/16/18 Surgical History: Surgical History (Last Reviewed 03/16/18 @ 17:27 by Olvin Chopra DO) S/P TURP (status post transurethral resection of prostate) (Resolved) Z90.79 pacemaker implantation (Resolved) generator change History of inguinal hernia repair (Resolved) Z98.890, Z87.19 History of hemorrhoidectomy (Resolved) Z98.890 History of prostatectomy (Resolved) Z98.890, Z90.79 right ochiectomy (Resolved) History of appendectomy (Resolved) Z98.890, Z90.49 S/P PTCA (percutaneous transluminal coronary angioplasty) (Chronic) Z98.61 History of orchiectomy, unilateral (Chronic) Z90.79 Surgical History: angioplasty, appendectomy, cholecystectomy, herniorrhaphy Smoking Status: Current every day smoker - *Family History Paternal Family History: Family History (Last Reviewed 03/16/18 @ 17:27 by Olvin Chopra DO) Father CAD (coronary artery disease) Mother Breast cancer Arthritis CAD (coronary artery disease) Hypertension Sister CVA (cerebral vascular accident) Diabetes Hypertension Son CAD (coronary artery disease) Hypertension History Items: Heart Disease, Renal Disease Sibling Family History: Family History (Last Reviewed 03/16/18 @ 17:27 by Olvin Chopra DO) Father CAD (coronary artery disease) Mother Breast cancer Arthritis CAD (coronary artery disease) Hypertension Sister CVA (cerebral vascular accident) Diabetes Hypertension Son CAD (coronary artery disease) Hypertension History Items: Diabetes, Heart Disease Offspring Family History: Family History (Last Reviewed 03/16/18 @ 17:27 by Olvin Chopra DO) Father CAD (coronary artery disease) Mother Breast cancer Arthritis CAD (coronary artery disease) Hypertension Sister CVA (cerebral vascular accident) Diabetes Hypertension Son CAD (coronary artery disease) Hypertension History Items: Heart Disease Maternal Family History: Family History (Last Reviewed 03/16/18 @ 17:27 by Olvin Chopra DO) Father CAD (coronary artery disease) Mother Breast cancer Arthritis CAD (coronary artery disease) Hypertension Sister CVA (cerebral vascular accident) Diabetes Hypertension Son CAD (coronary artery disease) Hypertension History Items: Cancer, Heart Disease Review of Systems Constitutional: Reports: Chills, Fever. Denies: Anorexia, Night Sweats Eyes: Denies: Blurred vision, Double vision HEENT: Denies: Head Aches, Sinus Congestion, Sinus Drainage Cardiovascular: Denies: Chest Pain, Palpitations Respiratory: Denies: Cough, Shortness of breath at rest, Sputum production Gastrointestinal: Reports: Abdominal Pain - Chronic and intermittent, Diarrhea - Chronic and intermittent, Nausea - Chronic and intermittent Genitourinary: Reports: Dysuria - Chronic Musculoskeletal: Reports: Back Pain, Leg Pain. Denies: Arm Pain Skin: Denies: Rash, Wounds Neurological: Denies: Blurred vision, Double vision, Focal weakness, Numbness, Tingling Psychiatric: Denies: Anxiety, Depression Endocrine: Denies: Change in Body Habitus, Heat/ Cold Intolerance Hematologic/ Lymphatic: Denies: Easy Bruising, Easy Bleeding, Hx of blood clot Comment: A 10 point review systems otherwise negative except for as mentioned above and in the HPI. VTE Information - Inpt Only VTE Present on Admission: No VTE Mechan Device Prophylaxis: SCD's VTE Pharm Prophylaxis ordered?: No Reason prophylaxis not ordered:: Medical Contraindication - Being held for lumbar puncture. Can be resumed afterwards. Patient Problems: Active and Suspected Problems (Last Reviewed 03/16/18 @ 17:27 by Olvin Chopra DO) Intractable headache (Acute) Neck stiffness (Acute) - Physical Exam General: Alert, Cooperative, Well developed, Well nourished, - - Uncomfortable but pleasant demeanor. Afebrile. HEENT: Atraumatic, PERRLA, EOMI, Normocephalic Oral: Moist Mucosa, No Gingival or Mucosal Lesions/ Ulcerations Neck: No Nodes, Thyroid Normal Size and Texture Lungs: Clear to auscultation, Normal air movement, No rhonchi, No wheeze Cardiovascular: Regular rate, Regular Rhythm, Normal S1, Normal S2, No murmurs Abdomen: Bowel Sounds Present, Soft, Non Tender, Non-Distended, No Hepato- splenomegaly Extremities: No edema, No Calf Tenderness Skin: No rashes, No breakdown Musculoskeletal: No Muscle Wasting, - - Tender cervical paraspinal muscles. Neurological: Cranial nerves II-XII grossly intact, Neuro grossly intact, Motor Exam 5/5 strength throughout, - - Positive Kernig's sign Psych/Mental Status: Normal Affect, Appropriate Vital Signs Temp Pulse Resp BP Pulse Ox 36.8 C 74 15 168/86 H 96 03/16/18 11:17 03/16/18 17:12 03/16/18 17:12 03/16/18 17:12 03/16/18 17:12 Oxygen Flow Rate (L/min) 2 Oxygen Delivery Method Nasal Cannula Weight: 85 kg Body Mass Index (BMI) 26.9 Microbiology Past 72 Hours 03/16/18 12:30 Group A Streptococcus Rapid Screen - Preliminary Mucosa - Throat 03/16/18 Unknown Influenza Types A,B Direct FA (BRIAN) - Final Mucosa - Nose Laboratory Tests Past 24 Hrs 03/16/18 03/16/18 03/16/18 11:55 11:55 13:50 WBC 10.1 RBC 3.83 L Hgb 10.8 L Hct 34.1 L MCV 89.0 MCH 28.2 MCHC 31.7 L RDW 17.0 H RDW Differential 54.5 H Plt Count 200 MPV 10.9 Immature Gran % (Auto) 0.300 Neut % (Auto) 79.8 H Lymph % (Auto) 8.3 L [place] % (Auto) 11.3 H Eos % (Auto) 0.2 Baso % (Auto) 0.1 Absolute Neuts (auto) 8.0 H Absolute Lymphs (auto) 0.84 Total Counted Not Reportable Sodium 139 Potassium 3.5 Chloride 106 Carbon Dioxide 26.0 Anion Gap 7 BUN 17 Creatinine 1.08 Estim Creat Clear Calc 57.27 Est GFR (MDRD) Af Amer 85 Est GFR (MDRD) Non-Af 70 BUN/Creatinine Ratio 15.7 Glucose 93 Calcium 8.6 Urine Color Yellow Urine Clarity Clear Urine pH 7.0 Ur Specific [place] 1.005 Urine Protein Negative Urine Glucose (UA) Normal Urine Ketones 5 H Urine Occult Blood Negative Urine Nitrite Negative Urine Bilirubin Negative Urine Urobilinogen Normal Ur Leukocyte Esterase 100 H Urine RBC 0 SEEN Urine WBC 0-5 SEEN Ur Squamous Epith Cells 0 SEEN Urine Bacteria 0 SEEN Urine Mucus 0 SEEN Clinical Impression(s) from Imaging Studies Chest X-Ray 03/16/18 12:10 IMPRESSION: Mild increased markings at the right lung base as compared to prior study suggestive of atelectasis and/or early infiltrate. Electronically Signed: Stef Carlton MD at 12:40 EST Tel [phone], Service support , Brain CT 03/16/18 14:00 IMPRESSION: Chronic involutional changes of the brain. Electronically Signed: Stef Carlton MD at 14:35 EST Tel [phone], Service support , Cervical Spine CT 03/16/18 14:20 IMPRESSION: Multilevel degenerative changes, as described above. Electronically Signed: Stef Carlton MD at 14:43 EST Tel [phone], Service support , Assessment/Plan All Active Problems (Last Reviewed 03/16/18 @ 17:27 by Olvin Chopra DO) Intractable headache (Acute) Neck stiffness (Acute) Fever (Acute) Intractable low back pain (Acute) Shortness of breath (Acute) Aspiration pneumonia (Resolved) S/P TURP (status post transurethral resection of prostate) (Resolved) pacemaker implantation (Resolved) History of inguinal hernia repair (Resolved) History of hemorrhoidectomy (Resolved) History of prostatectomy (Resolved) right ochiectomy (Resolved) History of appendectomy (Resolved) Palpitations (Acute) Dizziness and giddiness (Resolved) Syncope (Resolved) Cough (Resolved) Dyspnea (Acute) Bronchitis (Resolved) Acute respiratory failure with hypoxia (Acute) Respiratory failure with hypoxia (Resolved) Unstable angina (Resolved) Chest pain (Resolved) Acute kidney injury (Acute) Sepsis (Resolved) 1. Intractable headache * Unclear etiology at this time though the primary concern right now is for meningitis. Other possibilities could be related with encephalitis versus migraine versus tension type headache * Since there is concern for meningitis, patient will need to have a lumbar puncture to rule out. Will order studies as well. * Patient will be on empiric vancomycin and Rocephin. Given his age patient will also need to be on a penicillin or an equivalent. Given the patient has an allergy to penicillin patient will be put on aztreonam * May start to de-escalate antibiotics based on culture results * Other possibilities could be musculoskeletal which patient will have Flexeril as well as other pain medications. Given the severity of the patient's neck and back pain patient will be on narcotics as well which may aggravate headaches if this happens to be migraine but until we get further clear evidence to rule out infectious process this will be included at this time. * Given that patient was having symptoms days prior to this this does not seem consistent with subarachnoid hemorrhage though cannot be ruled out that this is a possibility definitively. But if evidence of blood is present may cons ider transfer to tertiary facility for neurosurgery evaluation. 2. Neck and back pain * May be musculoskeletal but cannot rule out meningismus at this time * See above for further descriptions 3. Atrial fibrillation * Will hold patient's Xarelto. Last dose of Xarelto was on the at night. Additionally hold his aspirin. * Not be noted, that the patient does not appear to be any kind of rate co ntrolling medications. On telemetry, patient appears to be in sinus rhythm. 4. DVT prophylaxis: Patient be on SCDs. Resume his Xarelto after the lumbar puncture when appropriate. Code Visit Inpatient E&M: 27826 Init Hosp L3
[2018-03-16] MEDS: 0.9% NaCl Peripheral Flush Adult/Peds IV (21:02)
[2018-03-16] MEDS: MELATONIN 10 MG TABLET PO (21:03)
[2018-03-16] MEDS: Tamsulosin HCl 0.4 MG Capsule PO (21:03)
[2018-03-16] MEDS: Donepezil HCl 10 MG Tablet PO (21:03)
[2018-03-16] MEDS: Pregabalin 75 MG Capsule 300 MG PO (21:03)
[2018-03-16] MEDS: Acetaminophen 325 MG Tablet 650 MG PO (21:04)
[2018-03-17] VITALS (7 sets, daily range): BP systolic 119–163; BP diastolic 47–82; PULSE 70–88; RESP 16–18; TEMP 36.8–37.1; O2SAT 93–96
[2018-03-17] MEDS: oxyCODONE 5 MG Tablet PO ×3 (00:21→14:13)
[2018-03-17 06:15] LABS: International Normalized Ratio 1.1; Prothrombin Time (Protime)PT. 14.4 SECONDS (11.7-14.9)
[2018-03-17 06:43] LABS: Anion Gap 6 (5-15); BUN 15 mg/dL (7-18); BUN/Creat Ratio 17.1 RATIO (10-20); Calcium,Total 8.2 mg/dL (8.5-10.1); Chloride 108 mmol/L (98-107); Creatinine, Serum 0.88 mg/dL (0.70-1.30); EST Glomerular Filtration Rate 89 mL/min (>60); Est Glom Filt Rate - Afr Amer 108 mL/min (>60); Estimated Creatinine Clearance 70.28 ml/min; Glucose 95 mg/dL (74-106); Potassium 3.8 mmol/L (3.5-5.1); Sodium Level 142 mmol/L (136-145)
--- NOTE | 2018-03-17 08:45 | PCM.RX.CS ---
Consult Pharmacy has been consulted to manage selected antiobiotic: Vancomycin Type of Consult: New start Suspected Infection: Meningitis Prior Doses of Antibiotics Received/Current Regimen: No prior doses of vancomycin given at time of initiation Labs: Sodium 142 mmol/L (136-145) 03/17/18 05:30 Potassium 3.8 mmol/L (3.5-5.1) 03/17/18 05:30 Chloride 108 mmol/L (98-107) H 03/17/18 05:30 Carbon Dioxide 28.0 mmol/L (21.0-32.0) 03/17/18 05:30 Anion Gap 6 (5-15) 03/17/18 05:30 BUN 15 mg/dL (7-18) 03/17/18 05:30 Creatinine 0.88 mg/dL (0.70-1.30) 03/17/18 05:30 Est GFR (MDRD) Af Amer 108 mL/min (>60) 03/17/18 05:30 Est GFR (MDRD) Non-Af 89 mL/min (>60) 03/17/18 05:30 BUN/Creatinine Ratio 17.1 RATIO (10-20) 03/17/18 05:30 Glucose 95 mg/dL (74-106) 03/17/18 05:30 Microbiology: Microbiology 03/16/18 12:30 Mucosa - Throat Group A Streptococcus Rapid Screen - Preliminary 03/16/18 Unknown Mucosa - Nose Influenza Types A,B Direct FA (BRIAN) - Final Estimated Creatinine Clearance: 57ml/min Goal Trough: 15-20 mcg/mL Pharmacy Plan for Drug Dosing: PLAN/RECOMMENDATIONS 1. Vancomycin standard dose 1250mg IV x1 based on TBW 2. Schedule vancomycin 750mg IV Q12hrs 3. Trough scheduled 03/18/18 @0830, prior to 4th total vancomycin dose 4. Pharmacy Service will continue to monitor and adjust dosing as required.
[2018-03-17] MEDS: Cyanocobalamin 500 MCG Tablet PO (10:41)
[2018-03-17] MEDS: Pantoprazole Sodium 20 MG Tablet PO (10:41)
[2018-03-17] MEDS: DULoxetine Hcl 60 MG Capsule PO (10:42)
[2018-03-17] MEDS: 0.9% NaCl Peripheral Flush Adult/Peds IV ×2 (11:00→22:29)
--- NOTE | 2018-03-17 12:25 | CASEMGMT ---
JULIUS PATEL Face to Face with patient for initial transition planning/care coordination assessment. RN CM introduced self and role at [facility]. Patient lying in bed, alert and oriented, at bedside. Patient willing to participate in assessment and is able to answer all questions appropriately. Care providers, pharmacy, and demographics verified. Patient wishes to discharge home but realizes if unable to ambulate without assistance may need to go to SNF. Patient states he has no further needs or concerns at this time. RN AMANDA updated MARY Faheem Flores regarding potential placement, will monitor therapy notes. CM to follow for discharge planning needs that may arise. PCP: [facility] Specialists: Nelly, senior contract specialist; Justice, urologist; Jl, pulmonology; Jaci, GI; Clint, Pain Preferred Pharmacy: [facility] Insurance: [facility], [place] Prescription Benefit: [employer] Living Will/HPOA: Yes, Hellen Parker LNOK: Living Arrangements: Patient lives with in 1 story home with 2 steps to enter the home. Patient mostly independent at home. Transportation: DME/HHC: Patient has tub bench, cane, walker, BiPap at home. Patient was recently discharged from [facility] on 02/18, and has also been to [facility]. Disposition Plan: TBD by course of treatment. Will monitor progress with therapy. HHC v SNF Hyacinth CERDA, RN, CM
[2018-03-17] MEDS: Tamsulosin HCl 0.4 MG Capsule PO (17:48)
--- NOTE | 2018-03-17 18:03 | PCM.PN.HOSP ---
Patient Problems: Active and Suspected Problems (Last Reviewed 03/16/18 @ 17:27 by Olvin Chopra DO) Intractable headache (Acute) Neck stiffness (Acute) Subjective: Still with significant back and neck pain. He is unable to touch his chin to his chest. Remains afebrile and denies any chills. Vitals/I&O's: Vital Signs Temp Pulse Resp BP Pulse Ox 98.6 F 85 18 139/65 H 96 03/17/18 15:34 03/17/18 15:34 03/17/18 15:34 03/17/18 15:34 03/17/18 15:34 Oxygen Flow Rate (L/min) [2] 4 Oxygen Flow Rate (L/min) [1 ( 4 Initial Baseline)] Oxygen Flow Rate (L/min) 2 Oxygen Delivery Method [2] Nasal Cannula Oxygen Delivery Method [1 ( Nasal Cannula Initial Baseline)] Oxygen Delivery Method Nasal Cannula Weight: 175 lb 0.012 oz Body Mass Index (BMI) 25.1 Intake and Output for Last 24 Hours 03/15/18 03/16/18 03/17/18 23:59 23:59 23:59 Intake Total 1543.9 / 1543.9 Balance 1543.9 / 1543.9 General: Alert, Oriented x3, Cooperative, - - In pain HEENT: Atraumatic, EOMI, Normocephalic Oral: Moist Mucosa Neck: No JVD, - - Midline cerivical pain and unable to move neck Lungs: Clear to auscultation, Normal air movement, No rhonchi, No wheeze, No rales Cardiovascular: Regular rate, Regular Rhythm, Normal S1, Normal S2, No murmurs Abdomen: Soft, Non Tender, Non-Distended, No Hepato-splenomegaly Extremities: No edema, Capillary Refill Less than 3 Seconds Skin: No rashes, No breakdown Neurological: Neuro grossly intact, Sensory exam intact to light touch and pain Psych/Mental Status: Normal Affect, Appropriate Microbiology Past 72 Hours 03/16/18 12:30 Mucosa - Throat Group A Streptococcus Rapid Screen - Preliminary 03/16/18 Unknown Mucosa - Nose Influenza Types A,B Direct FA (BRIAN) - Final Laboratory Results 03/17/18 05:30: PT 14.4, INR 1.1 03/17/18 05:30: Sodium 142, Potassium 3.8, Chloride 108 H, Carbon Dioxide 28.0, Anion Gap 6, BUN 15, Creatinine 0.88, Estim Creat Clear Calc 70.28, Est GFR (MDRD) Af Amer 108, Est GFR (MDRD) Non-Af 89, BUN/Creatinine Ratio 17.1, Glucose 95, Calcium 8.2 L Current Medications Acetaminophen (Tylenol) 650 mg PO Q6H PRN PRN PRN Reason: Mild Pain (1-3)/Temp > 100.7 F Last Admin: 03/16/18 21:04 Dose: 650 mg Cholecalciferol (Vitamin D) 1,000 unit PO DAILY [facility] Last Admin: 03/17/18 11:04 Dose: Not Given Cyanocobalamin (Vitamin B12) 500 mcg PO DAILY [facility] Last Admin: 03/17/18 10:41 Dose: 500 mcg Cyclobenzaprine HCl (Flexeril) 10 mg PO TID [facility] Last Admin: 03/17/18 14:13 Dose: 10 mg Donepezil HCl (Aricept) 10 mg PO QHS [facility] Last Admin: 03/16/18 21:03 Dose: 10 mg Duloxetine HCl (Cymbalta) 60 mg PO DAILY [facility] Last Admin: 03/17/18 10:42 Dose: 60 mg Aztreonam 2 gm/ Dextrose 100 mls @ 150 mls/hr IV Q8 [facility] Last Admin: 03/17/18 14:12 Dose: 150 mls/hr Ceftriaxone Sodium 2 gm/ (Sodium Chloride) 50 mls @ 100 mls/hr IV Q24 [facility] Last Admin: 03/17/18 10:42 Dose: 100 mls/hr Vancomycin IV Pharmacy to Dose (1 ea/ Sodium Chloride) 500 mls @ 250 mls/hr IV PRN PRN; Protocol PRN Reason: Rx to Dose Vancomycin HCl 750 mg/ Sodium (Chloride) 265 mls @ 250 mls/hr IV Q12H [facility] Last Admin: 03/17/18 09:11 Dose: 250 mls/hr Magnesium Hydroxide (Milk Of Magnesia) 30 ml PO DAILY PRN PRN PRN Reason: Constipation Melatonin (Melatonin) 10 mg PO QHS [facility] Last Admin: 03/16/18 21:03 Dose: 10 mg Morphine Sulfate () 2 - 4 mg IV Q4H PRN PRN PRN Reason: MOD-SEVERE PAIN (4-10/10) Multivitamins/Minerals (Healthy Eyes) 1 tablet PO BIDCM [facility] Last Admin: 03/17/18 17:48 Dose: 1 tablet Nutritional Formula (Lactose Free) (Ensure Enlive) 120 ml PO 4X/DAY [facility] Last Admin: 03/17/18 17:48 Dose: 120 ml Ondansetron HCl (Zofran) 4 mg IV Q8H PRN PRN PRN Reason: NAUSEA Oxycodone HCl (Oxyir) 5 mg PO Q4H PRN PRN PRN Reason: MOD-SEVERE PAIN (-01/26) Last Admin: 03/17/18 14:13 Dose: 5 mg Pantoprazole Sodium (Protonix) 20 mg PO DAILY [facility] Last Admin: 03/17/18 10:41 Dose: 20 mg Pregabalin (Lyrica) 300 mg PO QHS [facility] Last Admin: 03/16/18 21:03 Dose: 300 mg Sodium Chloride () 5 - 15 ml IV UD PRN PRN Reason: SALINE FLUSH Last Admin: 03/17/18 11:00 Dose: 10 ml Tamsulosin HCl (Flomax) 0.4 mg PO DAILY@1730 [facility] Last Admin: 03/17/18 17:48 Dose: 0.4 mg Medical Necessity - Tobacco Use Smoking Status: Current every day smoker Tobacco Use: Cigarettes Assessment/Plan All Active Problems (Last Reviewed 03/16/18 @ 17:27 by Olvin Chopra DO) Intractable headache (Acute) Neck stiffness (Acute) Fever (Acute) Intractable low back pain (Acute) Shortness of breath (Acute) Aspiration pneumonia (Resolved) S/P TURP (status post transurethral resection of prostate) (Resolved) pacemaker implantation (Resolved) History of inguinal hernia repair (Resolved) History of hemorrhoidectomy (Resolved) History of prostatectomy (Resolved) right ochiectomy (Resolved) History of appendectomy (Resolved) Palpitations (Acute) Dizziness and giddiness (Resolved) Syncope (Resolved) Cough (Resolved) Dyspnea (Acute) Bronchitis (Resolved) Acute respiratory failure with hypoxia (Acute) Respiratory failure with hypoxia (Resolved) Unstable angina (Resolved) Chest pain (Resolved) Acute kidney injury (Acute) Sepsis (Resolved) 1. Intractable headache wit midline cervical neck pain and inability to move his neck d/t pain - Still concern for possible meningitis - c/w rocephin, vancomycin and aztreonam - Will obtain LP tomorrow morning d/t xarelto use more than 24 hours prior to admission - C/w flexeril and narcotics for pain - CT brain negative for bleed 2. A-fib/Sick sinus syndrome/PAD/HTN/HLD - He is on xarelto as an outpatient which is now on hold for his LP - He continues to be in sinus rhythm and has a h/o pacemaker placement 3. GERD - stable - c/w PPI 4. Dementia/Depression - stable, struggling with the pain - c/w aricept and cymbalta DVT: SCDs Code Visit Inpatient E&M: 78570 Subs Hosp L2
--- NOTE | 2018-03-17 18:10 | PN_ITS ---
Patient Problems: Active and Suspected Problems (Last Reviewed 03/16/18 @ 17:27 by Olvin Chopra DO) Intractable headache (Acute) Neck stiffness (Acute) Subjective: Still with significant back and neck pain. He is unable to touch his chin to his chest. Remains afebrile and denies any chills. Vitals/I&O's: Vital Signs Temp Pulse Resp BP Pulse Ox 98.6 F 85 18 139/65 H 96 03/17/18 15:34 03/17/18 15:34 03/17/18 15:34 03/17/18 15:34 03/17/18 15:34 Oxygen Flow Rate (L/min) [2] 4 Oxygen Flow Rate (L/min) [1 ( 4 Initial Baseline)] Oxygen Flow Rate (L/min) 2 Oxygen Delivery Method [2] Nasal Cannula Oxygen Delivery Method [1 ( Nasal Cannula Initial Baseline)] Oxygen Delivery Method Nasal Cannula Weight: 175 lb 0.012 oz Body Mass Index (BMI) 25.1 Intake and Output for Last 24 Hours 03/15/18 03/16/18 03/17/18 23:59 23:59 23:59 Intake Total 1543.9 / 1543.9 Balance 1543.9 / 1543.9 General: Alert, Oriented x3, Cooperative, - - In pain HEENT: Atraumatic, EOMI, Normocephalic Oral: Moist Mucosa Neck: No JVD, - - Midline cerivical pain and unable to move neck Lungs: Clear to auscultation, Normal air movement, No rhonchi, No wheeze, No rales Cardiovascular: Regular rate, Regular Rhythm, Normal S1, Normal S2, No murmurs Abdomen: Soft, Non Tender, Non-Distended, No Hepato-splenomegaly Extremities: No edema, Capillary Refill Less than 3 Seconds Skin: No rashes, No breakdown Neurological: Neuro grossly intact, Sensory exam intact to light touch and pain Psych/Mental Status: Normal Affect, Appropriate Microbiology Past 72 Hours 03/16/18 12:30 Mucosa - Throat Group A Streptococcus Rapid Screen - Preliminary 03/16/18 Unknown Mucosa - Nose Influenza Types A,B Direct FA (BRIAN) - Final Laboratory Results 03/17/18 05:30: PT 14.4, INR 1.1 03/17/18 05:30: Sodium 142, Potassium 3.8, Chloride 108 H, Carbon Dioxide 28.0, Anion Gap 6, BUN 15, Creatinine 0.88, Estim Creat Clear Calc 70.28, Est GFR (MDRD) Af Amer 108, Est GFR (MDRD) Non-Af 89, BUN/Creatinine Ratio 17.1, Glucose 95, Calcium 8.2 L Current Medications Acetaminophen (Tylenol) 650 mg PO Q6H PRN PRN PRN Reason: Mild Pain (1-3)/Temp > 100.7 F Last Admin: 03/16/18 21:04 Dose: 650 mg Cholecalciferol (Vitamin D) 1,000 unit PO DAILY [facility] Last Admin: 03/17/18 11:04 Dose: Not Given Cyanocobalamin (Vitamin B12) 500 mcg PO DAILY [facility] Last Admin: 03/17/18 10:41 Dose: 500 mcg Cyclobenzaprine HCl (Flexeril) 10 mg PO TID [facility] Last Admin: 03/17/18 14:13 Dose: 10 mg Donepezil HCl (Aricept) 10 mg PO QHS [facility] Last Admin: 03/16/18 21:03 Dose: 10 mg Duloxetine HCl (Cymbalta) 60 mg PO DAILY [facility] Last Admin: 03/17/18 10:42 Dose: 60 mg Aztreonam 2 gm/ Dextrose 100 mls @ 150 mls/hr IV Q8 [facility] Last Admin: 03/17/18 14:12 Dose: 150 mls/hr Ceftriaxone Sodium 2 gm/ (Sodium Chloride) 50 mls @ 100 mls/hr IV Q24 [facility] Last Admin: 03/17/18 10:42 Dose: 100 mls/hr Vancomycin IV Pharmacy to Dose (1 ea/ Sodium Chloride) 500 mls @ 250 mls/hr IV PRN PRN; Protocol PRN Reason: Rx to Dose Vancomycin HCl 750 mg/ Sodium (Chloride) 265 mls @ 250 mls/hr IV Q12H [facility] Last Admin: 03/17/18 09:11 Dose: 250 mls/hr Magnesium Hydroxide (Milk Of Magnesia) 30 ml PO DAILY PRN PRN PRN Reason: Constipation Melatonin (Melatonin) 10 mg PO QHS [facility] Last Admin: 03/16/18 21:03 Dose: 10 mg Morphine Sulfate () 2 - 4 mg IV Q4H PRN PRN PRN Reason: MOD-SEVERE PAIN (4-10/10) Multivitamins/Minerals (Healthy Eyes) 1 tablet PO BIDCM [facility] Last Admin: 03/17/18 17:48 Dose: 1 tablet Nutritional Formula (Lactose Free) (Ensure Enlive) 120 ml PO 4X/DAY [facility] Last Admin: 03/17/18 17:48 Dose: 120 ml Ondansetron HCl (Zofran) 4 mg IV Q8H PRN PRN PRN Reason: NAUSEA Oxycodone HCl (Oxyir) 5 mg PO Q4H PRN PRN PRN Reason: MOD-SEVERE PAIN (-01/26) Last Admin: 03/17/18 14:13 Dose: 5 mg Pantoprazole Sodium (Protonix) 20 mg PO DAILY [facility] Last Admin: 03/17/18 10:41 Dose: 20 mg Pregabalin (Lyrica) 300 mg PO QHS [facility] Last Admin: 03/16/18 21:03 Dose: 300 mg Sodium Chloride () 5 - 15 ml IV UD PRN PRN Reason: SALINE FLUSH Last Admin: 03/17/18 11:00 Dose: 10 ml Tamsulosin HCl (Flomax) 0.4 mg PO DAILY@1730 [facility] Last Admin: 03/17/18 17:48 Dose: 0.4 mg Medical Necessity - Tobacco Use Smoking Status: Current every day smoker Tobacco Use: Cigarettes Assessment/Plan All Active Problems (Last Reviewed 03/16/18 @ 17:27 by Olvin Chopra DO) Intractable headache (Acute) Neck stiffness (Acute) Fever (Acute) Intractable low back pain (Acute) Shortness of breath (Acute) Aspiration pneumonia (Resolved) S/P TURP (status post transurethral resection of prostate) (Resolved) pacemaker implantation (Resolved) History of inguinal hernia repair (Resolved) History of hemorrhoidectomy (Resolved) History of prostatectomy (Resolved) right ochiectomy (Resolved) History of appendectomy (Resolved) Palpitations (Acute) Dizziness and giddiness (Resolved) Syncope (Resolved) Cough (Resolved) Dyspnea (Acute) Bronchitis (Resolved) Acute respiratory failure with hypoxia (Acute) Respiratory failure with hypoxia (Resolved) Unstable angina (Resolved) Chest pain (Resolved) Acute kidney injury (Acute) Sepsis (Resolved) 1. Intractable headache wit midline cervical neck pain and inability to move his neck d/t pain - Still concern for possible meningitis - c/w rocephin, vancomycin and aztreonam - Will obtain LP tomorrow morning d/t xarelto use more than 24 hours prior to admission - C/w flexeril and narcotics for pain - CT brain negative for bleed 2. A-fib/Sick sinus syndrome/PAD/HTN/HLD - He is on xarelto as an outpatient which is now on hold for his LP - He continues to be in sinus rhythm and has a h/o pacemaker placement 3. GERD - stable - c/w PPI 4. Dementia/Depression - stable, struggling with the pain - c/w aricept and cymbalta DVT: SCDs Code Visit Inpatient E&M: 82360 Subs Hosp L2
[2018-03-17] MEDS: Donepezil HCl 10 MG Tablet PO (22:30)
[2018-03-17] MEDS: Morphine 2 MG/ML Syringe IV (22:30)
[2018-03-17] MEDS: Pregabalin 75 MG Capsule 300 MG PO (22:30)
[2018-03-17] MEDS: Magnesium Hydroxide 30 ML UDC PO (23:38)
[2018-03-17] MEDS: MELATONIN 10 MG TABLET PO (23:38)
[2018-03-18] VITALS (12 sets, daily range): BP systolic 138–179; BP diastolic 82–97; PULSE 83–96; RESP 16–20; TEMP 37–37.9; O2SAT 91–96
[2018-03-18] MEDS: oxyCODONE 5 MG Tablet PO ×2 (03:50→09:52)
[2018-03-18 05:51] LABS: Absolute Lymphocyte Count 0.63 X10^3/ul (0.83-4.51); Absolute Neutrophil Count 7.7 X10^3/uL (2.0-7.7); Basophil# 0.02 X10^3/uL; Basophil% 0.2 % (0-1); Eosinophil# 0.03 X10^3/uL; Eosinophils% 0.3 % (0-5); Hematocrit 36.5 % (40-54); Hemoglobin 11.3 g/dl (13.0-16.5); Lymphocyte # 0.63 X10^3/ul (4.0); Lymphocyte % 6.5 % (19-41); Mean Corpuscular Hgb 27.4 pg (27.0-32.0); Mean Corpuscular Volume 88.6 fL (80-94); Monocyte# 1.28 X10^3/uL; Monocyte% 13.3 % (0-10); Neutrophil # 7.67 X10^3/uL (2.7-7.7); Neutrophil % 79.5 % (47-70); Platelet Count 221 K/mm3 (150-450); RBC Distribution Width CV 17.2 % (11.6-14.6); RBC Distribution Width SD 56.2 fl (35.1-43.9); Red Blood Count 4.12 M/mm3 (4.6-6.2); White Blood Count 9.7 K/mm3 (4.4-11.0)
[2018-03-18 05:58] LABS: POSITIVE COUNT NO; POSITIVE DIFFERENTIAL NO; POSITIVE MORPHOLOGY NO
[2018-03-18 06:13] LABS: Anion Gap 8 (5-15); BUN 15 mg/dL (7-18); BUN/Creat Ratio 17.2 RATIO (10-20); Calcium,Total 8.5 mg/dL (8.5-10.1); Chloride 107 mmol/L (98-107); Creatinine, Serum 0.87 mg/dL (0.70-1.30); EST Glomerular Filtration Rate 89 mL/min (>60); Est Glom Filt Rate - Afr Amer 108 mL/min (>60); Estimated Creatinine Clearance 71.09 ml/min; Glucose 110 mg/dL (74-106); Potassium 3.6 mmol/L (3.5-5.1); Sodium Level 142 mmol/L (136-145)
[2018-03-18 09:00] LABS: Vancomycin, Trough Level 11.9 ug/mL (5.0-15.0)
--- NOTE | 2018-03-18 09:10 | RAD_ITS ---
PROCEDURE: Fluoroscopic guided Lumbar Puncture. DATE: March 18, 2018. CLINICAL INDICATION: Altered mental status. Neck pain. PHYSICIAN: Stef Carlton M.D. MEDICATIONS: 1% lidocaine administered subcutaneously for local anesthesia. ACCESS SITE: Lower posterior back. NEEDLE: 22-gauge spinal needle. SPECIMEN: Approximately 13.5 mL clear]CSF fluid. FLUOROSCOPY TIME (if supplied): (1:36) minutes/seconds COMPLICATIONS: None immediate. The risks, benefits, and alternatives to the procedure were explained to the patient. The specific risks of bleeding, infection, and neurovascular injury were detailed and accepted. Witnessed informed consent was obtained. The patient was placed on the fluoroscopic table in the prone position. The level for needle entry was determined and marked. The overlying skin was cleaned and prepped in the usual sterile fashion. 2% lidocaine was administered subcutaneously for local anesthesia. Under fluoroscopic guidance a 22-gauge spinal needle was advanced. The thecal sac was entered at the L2-L3 vertebral level. The inner stylet was removed. There was spontaneous flow of clear CSF fluid. The patient was placed in a reversed Trendelenburg position. Approximately 13 mL of cerebrospinal fluid was collected using gravity. The specimen was collected and submitted to the laboratory for further evaluation. The needle was withdrawn,. Hemostasis was achieved and a sterile dressing placed. The patient tolerated the procedure well without any immediate complications. The patient was placed supine with head elevated and returned to the floor in stable condition. RAD/Fluoro Guided Lumbar Puncture IMPRESSION: Successful fluoroscopic-guided lumbar puncture. Electronically Signed: Stef Carlton MD at 10:21 EST Tel [phone], Service support ,
--- NOTE | 2018-03-18 09:42 | NURSING ---
REPORT CALLED TO MAYANK, PT DID TOLERATED PROCEDURE BUT VERY PAINFUL AND RESTLESS WITH MOVEMENT AND MOVING AROUND TO THE BED, PT WAS ALERT, BUT COULD TELL THAT HIS HEAD HURT VERY MUCH. MAYANK STATED SHE WILL ADDRESS PAIN STATUS WHEN HE GETS BACK TO THE FLOOR, STUDENT NURSE WITH PATIENT, WILL GO OVER POST CARE OF LUMBAR PUNCTURE WITH PATIENT AND FAMILY.
[2018-03-18] MEDS: DULoxetine Hcl 60 MG Capsule PO (09:52)
[2018-03-18] MEDS: Pantoprazole Sodium 20 MG Tablet PO (09:57)
[2018-03-18] MEDS: Cyanocobalamin 500 MCG Tablet PO (09:57)
[2018-03-18 10:26] LABS: Appearance CSF (character) CLEAR (Clear); Auto B Fluid Analyzer BKGD Ct COUNTS W/IN LIMITS (W/IN LIMITS); Body Fluid Polynuclear WBC # 0.001 10^3/uL; CSF Color COLORLESS (Colorless); Tested Tube # 4; Total Cell Count CSF 0.001 10^3/uL (0.000-0.000); White Count, CSF 0.001 10^3/uL (0.000-0.000)
[2018-03-18 10:36] LABS: Body Fluid QC Type(s) BF1Q; RBC Count, Spinal Fluid 0 /mm-3 (None seen)
--- NOTE | 2018-03-18 11:19 | PHA.PHARE_ITS ---
Consult Pharmacy has been consulted to manage selected antiobiotic: Vancomycin Type of Consult: Follow-up Suspected Infection: Meningitis Prior Doses of Antibiotics Received/Current Regimen: Vancomycin 750mg q12h x4 doses Labs: Sodium 142 mmol/L (136-145) 03/18/18 05:22 Potassium 3.6 mmol/L (3.5-5.1) 03/18/18 05:22 Chloride 107 mmol/L (98-107) 03/18/18 05:22 Carbon Dioxide 27.0 mmol/L (21.0-32.0) 03/18/18 05:22 Anion Gap 8 (5-15) 03/18/18 05:22 BUN 15 mg/dL (7-18) 03/18/18 05:22 Creatinine 0.87 mg/dL (0.70-1.30) 03/18/18 05:22 Est GFR (MDRD) Af Amer 108 mL/min (>60) 03/18/18 05:22 Est GFR (MDRD) Non-Af 89 mL/min (>60) 03/18/18 05:22 BUN/Creatinine Ratio 17.2 RATIO (10-20) 03/18/18 05:22 Glucose 110 mg/dL (74-106) H 03/18/18 05:22 Vancomycin Trough 11.9 ug/mL (5.0-15.0) 03/18/18 08:08 Microbiology: Microbiology 03/16/18 12:30 Mucosa - Throat Group A Streptococcus Rapid Screen - Final 03/16/18 Unknown Mucosa - Nose Influenza Types A,B Direct FA (BRIAN) - Final Weight used for dosin kg Estimated Creatinine Clearance: 71ml/min Goal Trough: 15-20 mcg/mL Pharmacy Plan for Drug Dosing: Pt's trough level results were 11.9. Goal trough of 15-20. Recommend increasi ng dose of Vancomycin to 1000mg q12h starting on 03/18/18 at 2100 due to improving renal function. Will recheck trough before the 4th dose on 03/20/18 at 0830 Pharmacy Service will continue to monitor and adjust dosing as required. Follow-Up Labs: Trough Vancomycin - 03/20/18 at 0830 Labs to be done on [date and time ordered]: trough level 03/20/18 at 0830
--- NOTE | 2018-03-18 15:00 | CASEMGMT ---
JULIUS PATEL received updated that PT/OT could not complete evaluation due to patient declining to continue evaluation. JULIUS PATEL to patient's room to discuss discharge plans and whether or not patient could go home with C or needed to go SNF. Patient stated he didn't want to think right now, grimaced with pain, shook fist at RN CM and stated to get the hell out. JULIUS PATEL asked for permission to call and patient agreed. JULIUS PATEL attempted to call and left message with return contact information. CM/SW to follow-up tomorrow to discuss discharge plans.
[2018-03-18 15:56] LABS: Pathologist Review Reviewed
--- NOTE | 2018-03-18 15:57 | PCM.PN.HOSP ---
Patient Problems: Active and Suspected Problems (Last Reviewed 03/16/18 @ 17:27 by Olvin Chopra DO) Intractable headache (Acute) Neck stiffness (Acute) Subjective: Still in pain and refuses to try and turn his head. He refuses to work with therapy Vitals/I&O's: Vital Signs Temp Pulse Resp BP Pulse Ox 98.6 F 84 16 174/92 H 92 03/18/18 14:32 03/18/18 14:32 03/18/18 14:32 03/18/18 14:32 03/18/18 14:32 Oxygen Flow Rate (L/min) [2] 4 Oxygen Flow Rate (L/min) [1 ( 4 Initial Baseline)] Oxygen Flow Rate (L/min) 2 Oxygen Delivery Method [2] Nasal Cannula Oxygen Delivery Method [1 ( Nasal Cannula Initial Baseline)] Oxygen Delivery Method Nasal Cannula Weight: 175 lb 0.012 oz Body Mass Index (BMI) 25.1 Intake and Output for Last 24 Hours 03/16/18 03/17/18 03/18/18 23:59 23:59 23:59 Intake Total 2012. / 2012. 2293 / 2293 Output Total 550 / 550 900 / 900 Balance 1463.9 / 1463.9 1393 / 1393 General: Alert, Oriented x3, Cooperative, - - In pain HEENT: Atraumatic, EOMI, Normocephalic Oral: Moist Mucosa Neck: No JVD, - - Midline cerivical pain and unable to move neck Lungs: Clear to auscultation, Normal air movement, No rhonchi, No wheeze, No rales Cardiovascular: Regular rate, Regular Rhythm, Normal S1, Normal S2, No murmurs Abdomen: Soft, Non Tender, Non-Distended, No Hepato-splenomegaly Extremities: No edema, Capillary Refill Less than 3 Seconds Skin: No rashes, No breakdown Neurological: Neuro grossly intact, Sensory exam intact to light touch and pain Psych/Mental Status: Normal Affect, Appropriate Microbiology Past 72 Hours 03/18/18 09:23 Csf, Spinal Fluid Gram Stain - Final 03/16/18 12:30 Mucosa - Throat Group A Streptococcus Rapid Screen - Final 03/16/18 Unknown Mucosa - Nose Influenza Types A,B Direct FA (BRIAN) - Final Laboratory Results 03/16/18 09:23: CSF Total Protein 67.0 H 03/16/18 09:23: CSF VZV DNA (PCR) Pending, [place] RNA (RT-PCR) Pending, [place] Interp Pending, Enterovirus RNA (PCR) Pending, Herpes Simplex Culture Pending, HSV I DNA PCR Pending, HSV II DNA PCR Pending, HSV Final Result Pending 03/18/18 05:22: WBC 9.7, RBC 4.12 L, Hgb 11.3 L, Hct 36.5 L, MCV 88.6, MCH 27.4, MCHC 31.0 L, RDW 17.2 H, RDW Differential 56.2 H, Plt Count 221, MPV 11.0, Immature Gran % (Auto) 0.200, Neut % (Auto) 79.5 H, Lymph % (Auto) 6.5 L, [place] % (Auto) 13.3 H, Eos % (Auto) 0.3, Baso % (Auto) 0.2, Absolute Neuts (auto) 7.7, Absolute Lymphs (auto) 0.63 L, Total Counted Not Reportable 03/18/18 05:22: Sodium 142, Potassium 3.6, Chloride 107, Carbon Dioxide 27.0, Anion Gap 8, BUN 15, Creatinine 0.87, Estim Creat Clear Calc 71.09, Est GFR (MDRD) Af Amer 108, Est GFR (MDRD) Non-Af 89, BUN/Creatinine Ratio 17.2, Glucose 110 H, Calcium 8.5 03/18/18 08:08: Vancomycin Trough 11.9 03/18/18 09:23: Fld Polynuclear WBCs # 0.001, Fld Polynuclear WBCs % 100.0, Fluid Mononuclear WBCs 0.000, Fld Mononuclear WBCs % 0.0, CSF Appearance CLEAR, CSF Color COLORLESS, CSF WBC 0.001 H, CSF RBC 0, CSF Cell Count Tube # 4, CSF Total Cell Counted 0.001 H, CSF Comment Reviewed Current Medications Acetaminophen (Tylenol) 650 mg PO Q6H PRN PRN PRN Reason: Mild Pain (1-3)/Temp > 100.7 F Last Admin: 03/16/18 21:04 Dose: 650 mg Cholecalciferol (Vitamin D) 1,000 unit PO DAILY [facility] Last Admin: 03/18/18 09:52 Dose: 1,000 unit Cyanocobalamin (Vitamin B12) 500 mcg PO DAILY [facility] Last Admin: 03/18/18 09:57 Dose: 500 mcg Donepezil HCl (Aricept) 10 mg PO QHS [facility] Last Admin: 03/17/18 22:30 Dose: 10 mg Duloxetine HCl (Cymbalta) 60 mg PO DAILY [facility] Last Admin: 03/18/18 09:52 Dose: 60 mg Aztreonam 2 gm/ Dextrose 100 mls @ 150 mls/hr IV Q8 [facility] Last Admin: 03/18/18 15:38 Dose: 150 mls/hr Ceftriaxone Sodium 2 gm/ (Sodium Chloride) 50 mls @ 100 mls/hr IV Q24 [facility] Last Admin: 03/18/18 11:25 Dose: 100 mls/hr Vancomycin IV Pharmacy to Dose (1 ea/ Sodium Chloride) 500 mls @ 250 mls/hr IV PRN PRN; Protocol PRN Reason: Rx to Dose Vancomycin HCl (Vancomycin) 1,000 mg in 200 mls @ 200 mls/hr IV Q12H [facility] Magnesium Hydroxide (Milk Of Magnesia) 30 ml PO DAILY PRN PRN PRN Reason: Constipation Last Admin: 03/17/18 23:38 Dose: 30 ml Melatonin (Melatonin) 10 mg PO QHS [facility] Last Admin: 03/17/18 23:38 Dose: 10 mg Morphine Sulfate () 2 - 4 mg IV Q4H PRN PRN PRN Reason: MOD-SEVERE PAIN (4-10/10) Last Admin: 03/17/18 22:30 Dose: 4 mg Multivitamins/Minerals (Healthy Eyes) 1 tablet PO BIDCM [facility] Last Admin: 03/18/18 09:52 Dose: 1 tablet Nutritional Formula (Lactose Free) (Ensure Enlive) 120 ml PO 4X/DAY [facility] Last Admin: 03/18/18 13:19 Dose: 120 ml Ondansetron HCl (Zofran) 4 mg IV Q8H PRN PRN PRN Reason: NAUSEA Oxycodone HCl (Oxyir) 5 mg PO Q4H PRN PRN PRN Reason: MOD-SEVERE PAIN (4-10/10) Last Admin: 03/18/18 09:52 Dose: 5 mg Pantoprazole Sodium (Protonix) 20 mg PO DAILY [facility] Last Admin: 03/18/18 09:57 Dose: 20 mg Pregabalin (Lyrica) 300 mg PO QHS [facility] Last Admin: 03/17/18 22:30 Dose: 300 mg Sodium Chloride () 5 - 15 ml IV UD PRN PRN Reason: SALINE FLUSH Last Admin: 03/17/18 22:29 Dose: 10 ml Tamsulosin HCl (Flomax) 0.4 mg PO DAILY@1730 [facility] Last Admin: 03/17/18 17:48 Dose: 0.4 mg Medical Necessity - Tobacco Use Smoking Status: Current every day smoker Tobacco Use: Cigarettes Assessment/Plan All Active Problems (Last Reviewed 03/16/18 @ 17:27 by Olvin Chopra, ) Intractable headache (Acute) Neck stiffness (Acute) Fever (Acute) Intractable low back pain (Acute) Shortness of breath (Acute) Aspiration pneumonia (Resolved) S/P TURP (status post transurethral resection of prostate) (Resolved) pacemaker implantation (Resolved) History of inguinal hernia repair (Resolved) History of hemorrhoidectomy (Resolved) History of prostatectomy (Resolved) right ochiectomy (Resolved) History of appendectomy (Resolved) Palpitations (Acute) Dizziness and giddiness (Resolved) Syncope (Resolved) Cough (Resolved) Dyspnea (Acute) Bronchitis (Resolved) Acute respiratory failure with hypoxia (Acute) Respiratory failure with hypoxia (Resolved) Unstable angina (Resolved) Chest pain (Resolved) Acute kidney injury (Acute) Sepsis (Resolved) 1. Intractable headache wit midline cervical neck pain and inability to move his neck d/t pain - Still concern for possible meningitis - c/w rocephin, vancomycin and aztreonam - LP today and results pending, CSF protein was elevated and there was 0.001 WBC present and no RBC. Gram stain is also negative, awaiting cultures and PCR. - He is refusing PT/OT, so dispo is unknown at the moment - Afebrile without a leukocytosis - C/w flexeril and narcotics for pain - CT brain negative for bleed 2. A-fib/Sick sinus syndrome/PAD/HTN/HLD - He is on xarelto as an outpatient which is now on hold for his LP, can restart on wednesday night - He continues to be in sinus rhythm and has a h/o pacemaker placement 3. GERD - stable - c/w PPI 4. Dementia/Depression - stable, struggling with the pain - c/w aricept and cymbalta DVT: SCDs Code Visit Inpatient E&M: 29241 Subs Hosp L2
--- NOTE | 2018-03-18 16:01 | PN_ITS ---
Patient Problems: Active and Suspected Problems (Last Reviewed 03/16/18 @ 17:27 by Olvin Chopra DO) Intractable headache (Acute) Neck stiffness (Acute) Subjective: Still in pain and refuses to try and turn his head. He refuses to work with therapy Vitals/I&O's: Vital Signs Temp Pulse Resp BP Pulse Ox 98.6 F 84 16 174/92 H 92 03/18/18 14:32 03/18/18 14:32 03/18/18 14:32 03/18/18 14:32 03/18/18 14:32 Oxygen Flow Rate (L/min) [2] 4 Oxygen Flow Rate (L/min) [1 ( 4 Initial Baseline)] Oxygen Flow Rate (L/min) 2 Oxygen Delivery Method [2] Nasal Cannula Oxygen Delivery Method [1 ( Nasal Cannula Initial Baseline)] Oxygen Delivery Method Nasal Cannula Weight: 175 lb 0.012 oz Body Mass Index (BMI) 25.1 Intake and Output for Last 24 Hours 03/16/18 03/17/18 03/18/18 23:59 23:59 23:59 Intake Total 2012. / 2012. 2293 / 2293 Output Total 550 / 550 900 / 900 Balance 1463.9 / 1463.9 1393 / 1393 General: Alert, Oriented x3, Cooperative, - - In pain HEENT: Atraumatic, EOMI, Normocephalic Oral: Moist Mucosa Neck: No JVD, - - Midline cerivical pain and unable to move neck Lungs: Clear to auscultation, Normal air movement, No rhonchi, No wheeze, No rales Cardiovascular: Regular rate, Regular Rhythm, Normal S1, Normal S2, No murmurs Abdomen: Soft, Non Tender, Non-Distended, No Hepato-splenomegaly Extremities: No edema, Capillary Refill Less than 3 Seconds Skin: No rashes, No breakdown Neurological: Neuro grossly intact, Sensory exam intact to light touch and pain Psych/Mental Status: Normal Affect, Appropriate Microbiology Past 72 Hours 03/18/18 09:23 Csf, Spinal Fluid Gram Stain - Final 03/16/18 12:30 Mucosa - Throat Group A Streptococcus Rapid Screen - Final 03/16/18 Unknown Mucosa - Nose Influenza Types A,B Direct FA (BRIAN) - Final Laboratory Results 03/16/18 09:23: CSF Total Protein 67.0 H 03/16/18 09:23: CSF VZV DNA (PCR) Pending, West Nile RNA (RT-PCR) Pending, West Nile Interp Pending, Enterovirus RNA (PCR) Pending, Herpes Simplex Culture Pending, HSV I DNA PCR Pending, HSV II DNA PCR Pending, HSV Final Result Pending 03/18/18 05:22: WBC 9.7, RBC 4.12 L, Hgb 11.3 L, Hct 36.5 L, MCV 88.6, MCH 27.4, MCHC 31.0 L, RDW 17.2 H, RDW Differential 56.2 H, Plt Count 221, MPV 11.0, Immature Gran % (Auto) 0.200, Neut % (Auto) 79.5 H, Lymph % (Auto) 6.5 L, [place] % (Auto) 13.3 H, Eos % (Auto) 0.3, Baso % (Auto) 0.2, Absolute Neuts (auto) 7.7, Absolute Lymphs (auto) 0.63 L, Total Counted Not Reportable 03/18/18 05:22: Sodium 142, Potassium 3.6, Chloride 107, Carbon Dioxide 27.0, Anion Gap 8, BUN 15, Creatinine 0.87, Estim Creat Clear Calc 71.09, Est GFR (MDRD) Af Amer 108, Est GFR (MDRD) Non-Af 89, BUN/Creatinine Ratio 17.2, Glucose 110 H, Calcium 8.5 03/18/18 08:08: Vancomycin Trough 11.9 03/18/18 09:23: Fld Polynuclear WBCs # 0.001, Fld Polynuclear WBCs % 100.0, Fluid Mononuclear WBCs 0.000, Fld Mononuclear WBCs % 0.0, CSF Appearance CLEAR, CSF Color COLORLESS, CSF WBC 0.001 H, CSF RBC 0, CSF Cell Count Tube # 4, CSF Total Cell Counted 0.001 H, CSF Comment Reviewed Current Medications Acetaminophen (Tylenol) 650 mg PO Q6H PRN PRN PRN Reason: Mild Pain (1-3)/Temp > 100.7 F Last Admin: 03/16/18 21:04 Dose: 650 mg Cholecalciferol (Vitamin D) 1,000 unit PO DAILY [facility] Last Admin: 03/18/18 09:52 Dose: 1,000 unit Cyanocobalamin (Vitamin B12) 500 mcg PO DAILY [facility] Last Admin: 03/18/18 09:57 Dose: 500 mcg Donepezil HCl (Aricept) 10 mg PO QHS [facility] Last Admin: 03/17/18 22:30 Dose: 10 mg Duloxetine HCl (Cymbalta) 60 mg PO DAILY [facility] Last Admin: 03/18/18 09:52 Dose: 60 mg Aztreonam 2 gm/ Dextrose 100 mls @ 150 mls/hr IV Q8 [facility] Last Admin: 03/18/18 15:38 Dose: 150 mls/hr Ceftriaxone Sodium 2 gm/ (Sodium Chloride) 50 mls @ 100 mls/hr IV Q24 [facility] Last Admin: 03/18/18 11:25 Dose: 100 mls/hr Vancomycin IV Pharmacy to Dose (1 ea/ Sodium Chloride) 500 mls @ 250 mls/hr IV PRN PRN; Protocol PRN Reason: Rx to Dose Vancomycin HCl (Vancomycin) 1,000 mg in 200 mls @ 200 mls/hr IV Q12H [facility] Magnesium Hydroxide (Milk Of Magnesia) 30 ml PO DAILY PRN PRN PRN Reason: Constipation Last Admin: 03/17/18 23:38 Dose: 30 ml Melatonin (Melatonin) 10 mg PO QHS [facility] Last Admin: 03/17/18 23:38 Dose: 10 mg Morphine Sulfate () 2 - 4 mg IV Q4H PRN PRN PRN Reason: MOD-SEVERE PAIN (4-10/10) Last Admin: 03/17/18 22:30 Dose: 4 mg Multivitamins/Minerals (Healthy Eyes) 1 tablet PO BIDCM [facility] Last Admin: 03/18/18 09:52 Dose: 1 tablet Nutritional Formula (Lactose Free) (Ensure Enlive) 120 ml PO 4X/DAY [facility] Last Admin: 03/18/18 13:19 Dose: 120 ml Ondansetron HCl (Zofran) 4 mg IV Q8H PRN PRN PRN Reason: NAUSEA Oxycodone HCl (Oxyir) 5 mg PO Q4H PRN PRN PRN Reason: MOD-SEVERE PAIN (4-10/10) Last Admin: 03/18/18 09:52 Dose: 5 mg Pantoprazole Sodium (Protonix) 20 mg PO DAILY [facility] Last Admin: 03/18/18 09:57 Dose: 20 mg Pregabalin (Lyrica) 300 mg PO QHS [facility] Last Admin: 03/17/18 22:30 Dose: 300 mg Sodium Chloride () 5 - 15 ml IV UD PRN PRN Reason: SALINE FLUSH Last Admin: 03/17/18 22:29 Dose: 10 ml Tamsulosin HCl (Flomax) 0.4 mg PO DAILY@1730 [facility] Last Admin: 03/17/18 17:48 Dose: 0.4 mg Medical Necessity - Tobacco Use Smoking Status: Current every day smoker Tobacco Use: Cigarettes Assessment/Plan All Active Problems (Last Reviewed 03/16/18 @ 17:27 by Olvin Chopra, ) Intractable headache (Acute) Neck stiffness (Acute) Fever (Acute) Intractable low back pain (Acute) Shortness of breath (Acute) Aspiration pneumonia (Resolved) S/P TURP (status post transurethral resection of prostate) (Resolved) pacemaker implantation (Resolved) History of inguinal hernia repair (Resolved) History of hemorrhoidectomy (Resolved) History of prostatectomy (Resolved) right ochiectomy (Resolved) History of appendectomy (Resolved) Palpitations (Acute) Dizziness and giddiness (Resolved) Syncope (Resolved) Cough (Resolved) Dyspnea (Acute) Bronchitis (Resolved) Acute respiratory failure with hypoxia (Acute) Respiratory failure with hypoxia (Resolved) Unstable angina (Resolved) Chest pain (Resolved) Acute kidney injury (Acute) Sepsis (Resolved) 1. Intractable headache wit midline cervical neck pain and inability to move his neck d/t pain - Still concern for possible meningitis - c/w rocephin, vancomycin and aztreonam - LP today and results pending, CSF protein was elevated and there was 0.001 WBC present and no RBC. Gram stain is also negative, awaiting cultures and PCR. - He is refusing PT/OT, so dispo is unknown at the moment - Afebrile without a leukocytosis - C/w flexeril and narcotics for pain - CT brain negative for bleed 2. A-fib/Sick sinus syndrome/PAD/HTN/HLD - He is on xarelto as an outpatient which is now on hold for his LP, can restart on wednesday night - He continues to be in sinus rhythm and has a h/o pacemaker placement 3. GERD - stable - c/w PPI 4. Dementia/Depression - stable, struggling with the pain - c/w aricept and cymbalta DVT: SCDs Code Visit Inpatient E&M: 02244 Subs Hosp L2
[2018-03-18] MEDS: Tamsulosin HCl 0.4 MG Capsule PO (18:01)
--- NOTE | 2018-03-18 20:41 | NURSING ---
Dr. Fuchs called and wanted an update on pt's condition. I asked the pt if it was ok to give Dr. Fuchs information and he agreed.
[2018-03-18] MEDS: Vancomycin IV 1,000 MG/200 ML BAG 200 MG IV (21:23)
[2018-03-18] MEDS: Morphine 2 MG/ML Syringe IV (21:24)
[2018-03-18] MEDS: Pregabalin 75 MG Capsule 300 MG PO (21:24)
[2018-03-18] MEDS: MELATONIN 10 MG TABLET PO (21:24)
[2018-03-18] MEDS: Donepezil HCl 10 MG Tablet PO (21:24)
--- NOTE | 2018-03-18 21:44 | NURSING ---
Dr. Fuchs and pt's son, Harry, both called for updates on pt. Called both back and updated them on how pt is doing. Pt gave the OK to update both.
[2018-03-18] MEDS: 0.9% NaCl Peripheral Flush Adult/Peds IV (23:16)
[2018-03-19] VITALS (8 sets, daily range): BP systolic 116–151; BP diastolic 72–84; PULSE 77–83; RESP 18; TEMP 36.8–37.5; O2SAT 92–96
[2018-03-19] MEDS: oxyCODONE 5 MG Tablet PO ×4 (03:17→21:04)
--- NOTE | 2018-03-19 04:11 | NURSING ---
Pt has made comments about wanting to use a 38 when asked about his pain or how he is feeling. This RN questioned pt and pt quickly brushed it off and said You don't want to hear that, I shouldn't say that, and then went back to resting. The patient then said it again while this RN and [employer] COUNSELOR Anselmo were in room providing care. This RN asked the patient if he was serious and really suicidal. Pt states I've thought about it before. Discussed with patient that saying what he said is a very serious statement and the nursing staff takes that very seriously. Pt then states I'm just joking. This RN asked the patient if he would like to speak with someone about it and get help and pt states If I'm gonna do it, I'm gonna do it. This RN then asked pt again if he felt suicidal and pt states I don't know if I am, I really don't know. Charge Nurse, Jennifer, and Component Technician, maxi Poole. Will continue to monitor patient.
--- NOTE | 2018-03-19 04:33 | NURSING ---
After discussion with supervisor finishing department, will implement suicide precautions and KELLY Briones, to sit with pt.
--- NOTE | 2018-03-19 04:44 | NURSING ---
As we were getting ready to implement suicide precautions Dr. Squires came to [facility]. I explained situation and he is going back to talk to pt. Anselmo MENDOZA is sitting with pt until we can determine our proper course of action.
--- NOTE | 2018-03-19 04:48 | NURSING ---
Dr. Squires here to assess pt. After speaking with the pt, he does not believe he is suicidal so pt will not need to be continually monitored. Zulema, supervisor instant potato processing, contacted.
--- NOTE | 2018-03-19 04:48 | NURSING ---
Dr. Squires up to assess pt and suicidal comments pt made. MD believes comments to be in a joking manner and states that he does not think the patient is actually suicidal. states pt does not need a sitter. Will continue to monitor pt.
--- NOTE | 2018-03-19 05:01 | PCM.PN.BLA ---
Progress Note Nursing team verbalized the patient has suicidal ideation based upon patient saying that he needed a 38. Upon assessing patient patient stated that he was only joking and he has things to live for.
[2018-03-19 07:32] LABS: Absolute Lymphocyte Count 1.05 X10^3/ul (0.83-4.51); Absolute Neutrophil Count 8.5 X10^3/uL (2.0-7.7); Basophil# 0.02 X10^3/uL; Basophil% 0.2 % (0-1); Eosinophil# 0.02 X10^3/uL; Eosinophils% 0.2 % (0-5); Hematocrit 37.8 % (40-54); Hemoglobin 11.8 g/dl (13.0-16.5); Lymphocyte # 1.05 X10^3/ul (4.0); Lymphocyte % 9.8 % (19-41); Mean Corp Hgb Conc 31.2 g/gl (32-36); Mean Corpuscular Hgb 27.3 pg (27.0-32.0); Mean Corpuscular Volume 87.5 fL (80-94); Mean Platelet Vol. 11.2 fl (6.2-12.0); Monocyte# 1.09 X10^3/uL; Monocyte% 10.1 % (0-10); Neutrophil # 8.54 X10^3/uL (2.7-7.7); Neutrophil % 79.5 % (47-70); Platelet Count 228 K/mm3 (150-450); RBC Distribution Width CV 16.9 % (11.6-14.6); RBC Distribution Width SD 54.2 fl (35.1-43.9); Red Blood Count 4.32 M/mm3 (4.6-6.2); White Blood Count 10.7 K/mm3 (4.4-11.0)
[2018-03-19 07:33] LABS: POSITIVE COUNT NO; POSITIVE DIFFERENTIAL NO; POSITIVE MORPHOLOGY NO
[2018-03-19 08:13] LABS: Anion Gap 7 (5-15); BUN 16 mg/dL (7-18); BUN/Creat Ratio 19.2 RATIO (10-20); Calcium,Total 8.6 mg/dL (8.5-10.1); Chloride 102 mmol/L (98-107); Creatinine, Serum 0.83 mg/dL (0.70-1.30); EST Glomerular Filtration Rate 94 mL/min (>60); Est Glom Filt Rate - Afr Amer 114 mL/min (>60); Estimated Creatinine Clearance 74.51 ml/min; Glucose 106 mg/dL (74-106); Potassium 3.9 mmol/L (3.5-5.1); Sodium Level 138 mmol/L (136-145)
[2018-03-19] MEDS: Magnesium Hydroxide 30 ML UDC PO (08:16)
[2018-03-19] MEDS: Cyanocobalamin 500 MCG Tablet PO (09:11)
[2018-03-19] MEDS: DULoxetine Hcl 60 MG Capsule PO (09:11)
[2018-03-19] MEDS: Vancomycin IV 1,000 MG/200 ML BAG 200 MG IV ×2 (09:44→20:52)
--- NOTE | 2018-03-19 10:04 | PCM.PN.HOSP ---
Patient Problems: Active and Suspected Problems (Last Reviewed 03/16/18 @ 17:27 by Olvin Chopra DO) Intractable headache (Acute) Neck stiffness (Acute) Subjective: Able to turn his neck somewhat, still c/o neck pain and stiffness. Remains afebrile, without a leukocytosis. Still refusing to work with PT Vitals/I&O's: Vital Signs Temp Pulse Resp BP Pulse Ox 98.7 F 81 18 151/82 H 94 03/19/18 08:03 03/19/18 08:03 03/19/18 08:03 03/19/18 08:03 03/19/18 08:03 Oxygen Flow Rate (L/min) [2] 4 Oxygen Flow Rate (L/min) [1 ( 4 Initial Baseline)] Oxygen Flow Rate (L/min) 2 Oxygen Delivery Method [2] Nasal Cannula Oxygen Delivery Method [1 ( Nasal Cannula Initial Baseline)] Oxygen Delivery Method Nasal Cannula Weight: 175 lb 0.012 oz Body Mass Index (BMI) 25.1 Intake and Output for Last 24 Hours 03/17/18 03/18/18 03/19/18 23:59 23:59 23:59 Intake Total 2873 / 2873 791 / 791 Output Total 550 / 550 1400 / 1400 375 / 375 Balance 1463.9 / 1463.9 1473 / 1473 416 / 416 General: Alert, Oriented x3, Cooperative, - - In pain HEENT: Atraumatic, EOMI, Normocephalic Oral: Moist Mucosa Neck: No JVD, - - lateral cervical pain and unable to move neck Lungs: Clear to auscultation, Normal air movement, No rhonchi, No wheeze, No rales Cardiovascular: Regular rate, Regular Rhythm, Normal S1, Normal S2, No murmurs Abdomen: Soft, Non Tender, Non-Distended, No Hepato-splenomegaly Extremities: No edema, Capillary Refill Less than 3 Seconds Skin: No rashes, No breakdown Neurological: Neuro grossly intact, Sensory exam intact to light touch and pain Psych/Mental Status: Normal Affect, Appropriate Microbiology Past 72 Hours 03/18/18 09:23 Csf, Spinal Fluid Gram Stain - Final 03/18/18 09:23 Csf, Spinal Fluid CSF Culture - Preliminary No growth in 24 hours. Final to follow. 03/16/18 12:30 Mucosa - Throat Group A Streptococcus Rapid Screen - Final 03/16/18 Unknown Mucosa - Nose Influenza Types A,B Direct FA (BRIAN) - Final Laboratory Results 03/16/18 09:23: CSF Total Protein 67.0 H 03/16/18 09:23: CSF VZV DNA (PCR) Pending, West Nile RNA (RT-PCR) Pending, West Nile Interp Pending, Enterovirus RNA (PCR) Pending, Herpes Simplex Culture Pending, HSV I DNA PCR Pending, HSV II DNA PCR Pending, HSV Final Result Pending 03/18/18 09:23: Fld Polynuclear WBCs # 0.001, Fld Polynuclear WBCs % 100.0, Fluid Mononuclear WBCs 0.000, Fld Mononuclear WBCs % 0.0, CSF Appearance CLEAR, CSF Color COLORLESS, CSF WBC 0.001 H, CSF RBC 0, CSF Cell Count Tube # 4, CSF Total Cell Counted 0.001 H, CSF Comment Reviewed 03/19/18 06:50: WBC 10.7, RBC 4.32 L, Hgb 11.8 L, Hct 37.8 L, MCV 87.5, MCH 27.3, MCHC 31.2 L, RDW 16.9 H, RDW Differential 54.2 H, Plt Count 228, MPV 11.2, Immature Gran % (Auto) 0.200, Neut % (Auto) 79.5 H, Lymph % (Auto) 9.8 L, [place] % (Auto) 10.1 H, Eos % (Auto) 0.2, Baso % (Auto) 0.2, Absolute Neuts (auto) 8.5 H, Absolute Lymphs (auto) 1.05, Total Counted Not Reportable 03/19/18 06:50: Sodium 138, Potassium 3.9, Chloride 102, Carbon Dioxide 29.0, Anion Gap 7, BUN 16, Creatinine 0.83, Estim Creat Clear Calc 74.51, Est GFR (MDRD) Af Amer 114, Est GFR (MDRD) Non-Af 94, BUN/Creatinine Ratio 19.2, Glucose 106, Calcium 8.6 Current Medications Acetaminophen (Tylenol) 650 mg PO Q6H PRN PRN PRN Reason: Mild Pain (1-3)/Temp > 100.7 F Last Admin: 11/28/18 21:04 Dose: 650 mg Cholecalciferol (Vitamin D) 1,000 unit PO DAILY [facility] Last Admin: 03/19/18 09:13 Dose: 1,000 unit Cyanocobalamin (Vitamin B12) 500 mcg PO DAILY [facility] Last Admin: 03/19/18 09:11 Dose: 500 mcg Donepezil HCl (Aricept) 10 mg PO QHS [facility] Last Admin: 03/18/18 21:24 Dose: 10 mg Duloxetine HCl (Cymbalta) 60 mg PO DAILY [facility] Last Admin: 03/19/18 09:11 Dose: 60 mg Ceftriaxone Sodium 2 gm/ (Sodium Chloride) 50 mls @ 100 mls/hr IV Q24 [facility] Last Admin: 03/18/18 11:25 Dose: 100 mls/hr Vancomycin IV Pharmacy to Dose (1 ea/ Sodium Chloride) 500 mls @ 250 mls/hr IV PRN PRN; Protocol PRN Reason: Rx to Dose Vancomycin HCl (Vancomycin) 1,000 mg in 200 mls @ 200 mls/hr IV Q12H [facility] Last Admin: 03/19/18 09:44 Dose: 200 mls/hr Aztreonam 1 gm/ Dextrose 50 mls @ 150 mls/hr IV Q8 [facility] Aztreonam 1 gm/ Dextrose 50 mls @ 150 mls/hr IV Q8 [facility] Magnesium Hydroxide (Milk Of Magnesia) 30 ml PO DAILY PRN PRN PRN Reason: Constipation Last Admin: 03/19/18 08:16 Dose: 30 ml Melatonin (Melatonin) 10 mg PO QHS [facility] Last Admin: 03/18/18 21:24 Dose: 10 mg Morphine Sulfate () 2 - 4 mg IV Q4H PRN PRN PRN Reason: MOD-SEVERE PAIN (4-10/10) Last Admin: 03/18/18 21:24 Dose: 2 mg [facility]it[facility] Last Admin: 03/19/18 09:11 Dose: 1 tablet Nutritional Formula (Lactose Free) (Ensure Enlive) 120 ml PO 4X/DAY [facility] Last Admin: 03/18/18 21:18 Dose: Not Given Ondansetron HCl (Zofran) 4 mg IV Q8H PRN PRN PRN Reason: NAUSEA Oxycodone HCl (Oxyir) 5 mg PO Q4H PRN PRN PRN Reason: MOD-SEVERE PAIN (4-01/26) Last Admin: 03/19/18 09:17 Dose: 5 mg Pantoprazole Sodium (Protonix) 20 mg PO DAILY [facility] Last Admin: 03/18/18 09:57 Dose: 20 mg Pregabalin (Lyrica) 300 mg PO QHS [facility] Last Admin: 03/18/18 21:24 Dose: 300 mg Sodium Chloride () 5 - 15 ml IV UD PRN PRN Reason: SALINE FLUSH Last Admin: 03/18/18 23:16 Dose: 10 ml Tamsulosin HCl (Flomax) 0.4 mg PO DAILY@1730 [facility] Last Admin: 03/18/18 18:01 Dose: 0.4 mg Medical Necessity - Tobacco Use Smoking Status: Current every day smoker Tobacco Use: Cigarettes Assessment/Plan All Active Problems (Last Reviewed 03/16/18 @ 17:27 by Olvin Chopra DO) Intractable headache (Acute) Neck stiffness (Acute) Fever (Acute) Intractable low back pain (Acute) Shortness of breath (Acute) Aspiration pneumonia (Resolved) S/P TURP (status post transurethral resection of prostate) (Resolved) pacemaker implantation (Resolved) History of inguinal hernia repair (Resolved) History of hemorrhoidectomy (Resolved) History of prostatectomy (Resolved) right ochiectomy (Resolved) History of appendectomy (Resolved) Palpitations (Acute) Dizziness and giddiness (Resolved) Syncope (Resolved) Cough (Resolved) Dyspnea (Acute) Bronchitis (Resolved) Acute respiratory failure with hypoxia (Acute) Respiratory failure with hypoxia (Resolved) Unstable angina (Resolved) Chest pain (Resolved) Acute kidney injury (Acute) Sepsis (Resolved) 1. Intractable headache wit midline cervical neck pain and inability to move his neck d/t pain - Still concern for possible meningitis - c/w rocephin, vancomycin and aztreonam - LP with CSF protein was elevated and there was 0.001 WBC present and no RBC. Gram stain is also negative - prelim cultures are negative, will DC abx tomorrow if cultures negative and he remains afebrile. - He is refusing PT/OT, so dispo is unknown at the moment. I continue to encourage - Afebrile without a leukocytosis - C/w flexeril and narcotics for pain - CT brain negative for bleed 2. A-fib/Sick sinus syndrome/PAD/HTN/HLD - He is on xarelto as an outpatient which is now on hold for his LP, can restart on wednesday night - He continues to be in sinus rhythm and has a h/o pacemaker placement 3. GERD - stable - c/w PPI 4. Dementia/Depression - stable, struggling with the pain - c/w aricept and cymbalta - This may be part of his dementia since his has noticed that it has been worsening lately 5. Urinary retention - had multiple straight caths and had to have a rankin placed - Will try voiding trial tomorrow. May need an MRI if his pain remains uncontrolled DVT: SCDs Code Visit Inpatient E&M: 86491 Subs Hosp L2
--- NOTE | 2018-03-19 10:11 | PN_ITS ---
Patient Problems: Active and Suspected Problems (Last Reviewed 03/16/18 @ 17:27 by Olvin Chopra DO) Intractable headache (Acute) Neck stiffness (Acute) Subjective: Able to turn his neck somewhat, still c/o neck pain and stiffness. Remains afebrile, without a leukocytosis. Still refusing to work with PT Vitals/I&O's: Vital Signs Temp Pulse Resp BP Pulse Ox 98.7 F 81 18 151/82 H 94 03/19/18 08:03 03/19/18 08:03 03/19/18 08:03 03/19/18 08:03 03/19/18 08:03 Oxygen Flow Rate (L/min) [2] 4 Oxygen Flow Rate (L/min) [1 ( 4 Initial Baseline)] Oxygen Flow Rate (L/min) 2 Oxygen Delivery Method [2] Nasal Cannula Oxygen Delivery Method [1 ( Nasal Cannula Initial Baseline)] Oxygen Delivery Method Nasal Cannula Weight: 175 lb 0.012 oz Body Mass Index (BMI) 25.1 Intake and Output for Last 24 Hours 03/17/18 03/18/18 03/19/18 23:59 23:59 23:59 Intake Total 2873 / 2873 791 / 791 Output Total 550 / 550 1400 / 1400 375 / 375 Balance 1463.9 / 1463.9 1473 / 1473 416 / 416 General: Alert, Oriented x3, Cooperative, - - In pain HEENT: Atraumatic, EOMI, Normocephalic Oral: Moist Mucosa Neck: No JVD, - - lateral cervical pain and unable to move neck Lungs: Clear to auscultation, Normal air movement, No rhonchi, No wheeze, No rales Cardiovascular: Regular rate, Regular Rhythm, Normal S1, Normal S2, No murmurs Abdomen: Soft, Non Tender, Non-Distended, No Hepato-splenomegaly Extremities: No edema, Capillary Refill Less than 3 Seconds Skin: No rashes, No breakdown Neurological: Neuro grossly intact, Sensory exam intact to light touch and pain Psych/Mental Status: Normal Affect, Appropriate Microbiology Past 72 Hours 03/18/18 09:23 Csf, Spinal Fluid Gram Stain - Final 03/18/18 09:23 Csf, Spinal Fluid CSF Culture - Preliminary No growth in 24 hours. Final to follow. 03/16/18 12:30 Mucosa - Throat Group A Streptococcus Rapid Screen - Final 03/16/18 Unknown Mucosa - Nose Influenza Types A,B Direct FA (BRIAN) - Final Laboratory Results 03/16/18 09:23: CSF Total Protein 67.0 H 03/16/18 09:23: CSF VZV DNA (PCR) Pending, [place] RNA (RT-PCR) Pending, [place] Interp Pending, Enterovirus RNA (PCR) Pending, Herpes Simplex Culture Pending, HSV I DNA PCR Pending, HSV II DNA PCR Pending, HSV Final Result Pending 03/18/18 09:23: Fld Polynuclear WBCs # 0.001, Fld Polynuclear WBCs % 100.0, Fluid Mononuclear WBCs 0.000, Fld Mononuclear WBCs % 0.0, CSF Appearance CLEAR, CSF Color COLORLESS, CSF WBC 0.001 H, CSF RBC 0, CSF Cell Count Tube # 4, CSF Total Cell Counted 0.001 H, CSF Comment Reviewed 03/19/18 06:50: WBC 10.7, RBC 4.32 L, Hgb 11.8 L, Hct 37.8 L, MCV 87.5, MCH 27.3, MCHC 31.2 L, RDW 16.9 H, RDW Differential 54.2 H, Plt Count 228, MPV 11.2, Immature Gran % (Auto) 0.200, Neut % (Auto) 79.5 H, Lymph % (Auto) 9.8 L, [place] % (Auto) 10.1 H, Eos % (Auto) 0.2, Baso % (Auto) 0.2, Absolute Neuts (auto) 8.5 H, Absolute Lymphs (auto) 1.05, Total Counted Not Reportable 03/19/18 06:50: Sodium 138, Potassium 3.9, Chloride 102, Carbon Dioxide 29.0, Anion Gap 7, BUN 16, Creatinine 0.83, Estim Creat Clear Calc 74.51, Est GFR (MDRD) Af Amer 114, Est GFR (MDRD) Non-Af 94, BUN/Creatinine Ratio 19.2, Glucose 106, Calcium 8.6 Current Medications Acetaminophen (Tylenol) 650 mg PO Q6H PRN PRN PRN Reason: Mild Pain (1-3)/Temp > 100.7 F Last Admin: 11/28/18 21:04 Dose: 650 mg Cholecalciferol (Vitamin D) 1,000 unit PO DAILY [facility] Last Admin: 03/19/18 09:13 Dose: 1,000 unit Cyanocobalamin (Vitamin B12) 500 mcg PO DAILY [facility] Last Admin: 03/19/18 09:11 Dose: 500 mcg Donepezil HCl (Aricept) 10 mg PO QHS [facility] Last Admin: 03/18/18 21:24 Dose: 10 mg Duloxetine HCl (Cymbalta) 60 mg PO DAILY [facility] Last Admin: 03/19/18 09:11 Dose: 60 mg Ceftriaxone Sodium 2 gm/ (Sodium Chloride) 50 mls @ 100 mls/hr IV Q24 [facility] Last Admin: 03/18/18 11:25 Dose: 100 mls/hr Vancomycin IV Pharmacy to Dose (1 ea/ Sodium Chloride) 500 mls @ 250 mls/hr IV PRN PRN; Protocol PRN Reason: Rx to Dose Vancomycin HCl (Vancomycin) 1,000 mg in 200 mls @ 200 mls/hr IV Q12H [facility] Last Admin: 03/19/18 09:44 Dose: 200 mls/hr Aztreonam 1 gm/ Dextrose 50 mls @ 150 mls/hr IV Q8 [facility] Aztreonam 1 gm/ Dextrose 50 mls @ 150 mls/hr IV Q8 [facility] Magnesium Hydroxide (Milk Of Magnesia) 30 ml PO DAILY PRN PRN PRN Reason: Constipation Last Admin: 03/19/18 08:16 Dose: 30 ml Melatonin (Melatonin) 10 mg PO QHS [facility] Last Admin: 03/18/18 21:24 Dose: 10 mg Morphine Sulfate () 2 - 4 mg IV Q4H PRN PRN PRN Reason: MOD-SEVERE PAIN (4-10/10) Last Admin: 03/18/18 21:24 Dose: 2 mg [facility]ivitamins/[facility]iner[facility] ([facility] Last Admin: 03/19/18 09:11 Dose: 1 tablet Nutritional Formula (Lactose Free) (Ensure Enlive) 120 ml PO 4X/DAY [facility] Last Admin: 03/18/18 21:18 Dose: Not Given Ondansetron HCl (Zofran) 4 mg IV Q8H PRN PRN PRN Reason: NAUSEA Oxycodone HCl (Oxyir) 5 mg PO Q4H PRN PRN PRN Reason: MOD-SEVERE PAIN (4-01/26) Last Admin: 03/19/18 09:17 Dose: 5 mg Pantoprazole Sodium (Protonix) 20 mg PO DAILY [facility] Last Admin: 03/18/18 09:57 Dose: 20 mg Pregabalin (Lyrica) 300 mg PO QHS [facility] Last Admin: 03/18/18 21:24 Dose: 300 mg Sodium Chloride () 5 - 15 ml IV UD PRN PRN Reason: SALINE FLUSH Last Admin: 03/18/18 23:16 Dose: 10 ml Tamsulosin HCl (Flomax) 0.4 mg PO DAILY@1730 [facility] Last Admin: 03/18/18 18:01 Dose: 0.4 mg Medical Necessity - Tobacco Use Smoking Status: Current every day smoker Tobacco Use: Cigarettes Assessment/Plan All Active Problems (Last Reviewed 03/16/18 @ 17:27 by Olvin Chopra DO) Intractable headache (Acute) Neck stiffness (Acute) Fever (Acute) Intractable low back pain (Acute) Shortness of breath (Acute) Aspiration pneumonia (Resolved) S/P TURP (status post transurethral resection of prostate) (Resolved) pacemaker implantation (Resolved) History of inguinal hernia repair (Resolved) History of hemorrhoidectomy (Resolved) History of prostatectomy (Resolved) right ochiectomy (Resolved) History of appendectomy (Resolved) Palpitations (Acute) Dizziness and giddiness (Resolved) Syncope (Resolved) Cough (Resolved) Dyspnea (Acute) Bronchitis (Resolved) Acute respiratory failure with hypoxia (Acute) Respiratory failure with hypoxia (Resolved) Unstable angina (Resolved) Chest pain (Resolved) Acute kidney injury (Acute) Sepsis (Resolved) 1. Intractable headache wit midline cervical neck pain and inability to move his neck d/t pain - Still concern for possible meningitis - c/w rocephin, vancomycin and aztreonam - LP with CSF protein was elevated and there was 0.001 WBC present and no RBC. Gram stain is also negative - prelim cultures are negative, will DC abx tomorrow if cultures negative and he remains afebrile. - He is refusing PT/OT, so dispo is unknown at the moment. I continue to encourage - Afebrile without a leukocytosis - C/w flexeril and narcotics for pain - CT brain negative for bleed 2. A-fib/Sick sinus syndrome/PAD/HTN/HLD - He is on xarelto as an outpatient which is now on hold for his LP, can restart on wednesday night - He continues to be in sinus rhythm and has a h/o pacemaker placement 3. GERD - stable - c/w PPI 4. Dementia/Depression - stable, struggling with the pain - c/w aricept and cymbalta - This may be part of his dementia since his has noticed that it has been worsening lately 5. Urinary retention - had multiple straight caths and had to have a rankin placed - Will try voiding trial tomorrow. May need an MRI if his pain remains uncontrolled DVT: SCDs Code Visit Inpatient E&M: 99235 Subs Hosp L2
[2018-03-19] MEDS: Pantoprazole Sodium 20 MG Tablet PO (10:44)
[2018-03-19] MEDS: Acetaminophen 325 MG Tablet 650 MG PO (11:06)
--- NOTE | 2018-03-19 11:28 | CASEMGMT ---
Pt's came in, she states she received the message from Hyacinth the CM but did not want to call her back at the end of the day. SW explained Hyacinth was calling in to check about the discharge plan for pt. SW explained that pt has not been participating in therapy, so we are not certain if pt can go home or if the SNF is needed. SW asked if she can encourage pt to participate in therapy, so we can make the appropriate discharge plan. states understanding. SW inquired if SNF is needed, where would they want to go. states [facility] would be their choice. also asked about home health, SW explained that home health can be set up, but again at this point it is not certain if pt can go home w/home health. states understanding. SW/AMANDA will continue to follow for appropriate discharge plan. KAI Lovelace, BIOLOGICAL SCIENCE AIDE
--- NOTE | 2018-03-19 11:49 | NURSING ---
Report called to Zaynab MADRID.
[2018-03-19] MEDS: tiZANidine HCl 2 MG Tablet PO ×2 (13:44→21:04)
[2018-03-19] MEDS: 0.9% Normal Saline 1,000 ML 100 ML IV (15:36)
[2018-03-19] MEDS: Tamsulosin HCl 0.4 MG Capsule PO (17:54)
[2018-03-19] MEDS: Donepezil HCl 10 MG Tablet PO (21:04)
[2018-03-19] MEDS: MELATONIN 10 MG TABLET PO (21:04)
[2018-03-19] MEDS: Pregabalin 75 MG Capsule 300 MG PO (21:04)
[2018-03-20] VITALS (16 sets, daily range): BP systolic 84–114; BP diastolic 56–77; PULSE 73–88; RESP 18–22; TEMP 36.8–37.5; O2SAT 3–97
[2018-03-20] MEDS: 0.9% Normal Saline 1,000 ML 125 ML IV ×2 (05:51→16:05)
[2018-03-20] MEDS: tiZANidine HCl 2 MG Tablet PO ×2 (05:56→11:49)
[2018-03-20] MEDS: oxyCODONE 5 MG Tablet PO ×2 (05:57→23:42)
--- NOTE | 2018-03-20 06:44 | PCM.PN.HOSP ---
Patient Problems: Active and Suspected Problems (Last Reviewed 03/16/18 @ 17:27 by Olvin Chopra DO) Intractable headache (Acute) Neck stiffness (Acute) Subjective: continues with pain, nothing seems to help, afebrile, and no WBC. Refuses to work with PT Vitals/I&O's: Vital Signs Temp Pulse Resp BP Pulse Ox 98.6 F 80 18 114/77 92 03/20/18 02:50 03/20/18 03:02 03/20/18 03:02 03/20/18 02:50 03/20/18 03:02 Oxygen Flow Rate (L/min) [2] 4 Oxygen Flow Rate (L/min) [1 ( 4 Initial Baseline)] Oxygen Flow Rate (L/min) 3 Oxygen Delivery Method [2] Nasal Cannula Oxygen Delivery Method [1 ( Nasal Cannula Initial Baseline)] Oxygen Delivery Method Nasal Cannula Weight: 175 lb 0.012 oz Body Mass Index (BMI) 25.1 Intake and Output for Last 24 Hours 03/18/18 03/19/18 03/20/18 23:59 23:59 23:59 Intake Total 2873 / 2873 1725 / 1725 2024 / 2024 Output Total 1400 / 1400 610 / 610 475 / 475 Balance 1473 / 1473 1115 / 1115 1550 / 1550 General: Alert, Oriented x3, Cooperative, - - In pain HEENT: Atraumatic, EOMI, Normocephalic Oral: Moist Mucosa Neck: No JVD, - - lateral cervical pain and unable to move neck, mostly muscular Lungs: Clear to auscultation, Normal air movement, No rhonchi, No wheeze, No rales Cardiovascular: Regular rate, Regular Rhythm, Normal S1, Normal S2, No murmurs Abdomen: Soft, Non Tender, Non-Distended, No Hepato-splenomegaly Extremities: No edema, Capillary Refill Less than 3 Seconds Skin: No rashes, No breakdown Neurological: Neuro grossly intact, Sensory exam intact to light touch and pain Psych/Mental Status: Normal Affect, Appropriate Microbiology Past 72 Hours 03/18/18 09:23 Csf, Spinal Fluid Gram Stain - Final 03/18/18 09:23 Csf, Spinal Fluid CSF Culture - Preliminary No growth in 24 hours. Final to follow. 03/16/18 12:30 Mucosa - Throat Group A Streptococcus Rapid Screen - Final Laboratory Results 03/19/18 06:50: WBC 10.7, RBC 4.32 L, Hgb 11.8 L, Hct 37.8 L, MCV 87.5, MCH 27.3, MCHC 31.2 L, RDW 16.9 H, RDW Differential 54.2 H, Plt Count 228, MPV 11.2, Immature Gran % (Auto) 0.200, Neut % (Auto) 79.5 H, Lymph % (Auto) 9.8 L, [place] % (Auto) 10.1 H, Eos % (Auto) 0.2, Baso % (Auto) 0.2, Absolute Neuts (auto) 8.5 H, Absolute Lymphs (auto) 1.05, Total Counted Not Reportable 03/19/18 06:50: Sodium 138, Potassium 3.9, Chloride 102, Carbon Dioxide 29.0, Anion Gap 7, BUN 16, Creatinine 0.83, Estim Creat Clear Calc 74.51, Est GFR (MDRD) Af Amer 114, Est GFR (MDRD) Non-Af 94, BUN/Creatinine Ratio 19.2, Glucose 106, Calcium 8.6 Current Medications Acetaminophen (Tylenol) 650 mg PO Q6H PRN PRN PRN Reason: Mild Pain (1-3)/Temp > 100.7 F Last Admin: 03/19/18 11:06 Dose: 650 mg Cholecalciferol (Vitamin D) 1,000 unit PO DAILY [facility] Last Admin: 03/19/18 09:13 Dose: 1,000 unit Cyanocobalamin (Vitamin B12) 500 mcg PO DAILY [facility] Last Admin: 03/19/18 09:11 Dose: 500 mcg Donepezil HCl (Aricept) 10 mg PO QHS [facility] Last Admin: 03/19/18 21:04 Dose: 10 mg Duloxetine HCl (Cymbalta) 60 mg PO DAILY [facility] Last Admin: 03/19/18 09:11 Dose: 60 mg Ceftriaxone Sodium 2 gm/ (Sodium Chloride) 50 mls @ 100 mls/hr IV Q24 [facility] Last Admin: 03/19/18 11:53 Dose: 100 mls/hr Vancomycin IV Pharmacy to Dose (1 ea/ Sodium Chloride) 500 mls @ 250 mls/hr IV PRN PRN; Protocol PRN Reason: Rx to Dose Vancomycin HCl (Vancomycin) 1,000 mg in 200 mls @ 200 mls/hr IV Q12H [facility] Last Admin: 03/19/18 20:52 Dose: 200 mls/hr Aztreonam 1 gm/ Dextrose 50 mls @ 150 mls/hr IV Q8 [facility] Last Admin: 03/20/18 05:51 Dose: 150 mls/hr Aztreonam 1 gm/ Dextrose 50 mls @ 150 mls/hr IV Q8 [facility] Last Admin: 03/20/18 06:13 Dose: 150 mls/hr Sodium Chloride () 1,000 mls @ 125 mls/hr IV .Q8H [facility] Last Admin: 03/20/18 05:51 Dose: 125 mls/hr Magnesium Hydroxide (Milk Of Magnesia) 30 ml PO DAILY PRN PRN PRN Reason: Constipation Last Admin: 03/19/18 08:16 Dose: 30 ml Melatonin (Melatonin) 10 mg PO QHS [facility] Last Admin: 03/19/18 21:04 Dose: 10 mg Morphine Sulfate () 2 - 4 mg IV Q4H PRN PRN PRN Reason: MOD-SEVERE PAIN (4-10/10) Last Admin: 03/18/18 21:24 Dose: 2 mg Multivitamins/Minerals (Healthy Eyes) 1 tablet PO BIDCM [facility] Last Admin: 03/19/18 16:13 Dose: 1 tablet Nutritional Formula (Lactose Free) (Ensure Clear) 120 ml PO TIDCM [facility] Last Admin: 03/19/18 16:14 Dose: 120 ml Ondansetron HCl (Zofran) 4 mg IV Q8H PRN PRN PRN Reason: NAUSEA Oxycodone HCl (Oxyir) 5 mg PO Q4H PRN PRN PRN Reason: MOD-SEVERE PAIN (4-10/10) Last Admin: 03/20/18 05:57 Dose: 5 mg Pantoprazole Sodium (Protonix) 20 mg PO DAILY [facility] Last Admin: 03/19/18 10:44 Dose: 20 mg Pregabalin (Lyrica) 300 mg PO QHS [facility] Last Admin: 03/19/18 21:04 Dose: 300 mg Sodium Chloride () 5 - 15 ml IV UD PRN PRN Reason: SALINE FLUSH Last Admin: 03/18/18 23:16 Dose: 10 ml Tamsulosin HCl (Flomax) 0.4 mg PO DAILY@1730 [facility] Last Admin: 03/19/18 17:54 Dose: 0.4 mg Tizanidine HCl (Zanaflex) 2 mg PO Q6H PRN PRN Reason: SPASMS Last Admin: 03/20/18 05:56 Dose: 2 mg Medical Necessity - Tobacco Use Smoking Status: Current every day smoker Tobacco Use: Cigarettes Assessment/Plan All Active Problems (Last Reviewed 03/16/18 @ 17:27 by Olvin Chopra DO) Intractable headache (Acute) Neck stiffness (Acute) Fever (Acute) Intractable low back pain (Acute) Shortness of breath (Acute) Aspiration pneumonia (Resolved) S/P TURP (status post transurethral resection of prostate) (Resolved) pacemaker implantation (Resolved) History of inguinal hernia repair (Resolved) History of hemorrhoidectomy (Resolved) History of prostatectomy (Resolved) right ochiectomy (Resolved) History of appendectomy (Resolved) Palpitations (Acute) Dizziness and giddiness (Resolved) Syncope (Resolved) Cough (Resolved) Dyspnea (Acute) Bronchitis (Resolved) Acute respiratory failure with hypoxia (Acute) Respiratory failure with hypoxia (Resolved) Unstable angina (Resolved) Chest pain (Resolved) Acute kidney injury (Acute) Sepsis (Resolved) 1. Intractable headache wit midline cervical neck pain and inability to move his neck d/t pain - Concern that this is mostly musculoskeletal - LP with CSF protein was elevated and there was 0.001 WBC present and no RBC. Gram stain is also negative - prelim cultures are negative, DC abx - Check ESR and CRP, if negative will proceed with MRI in the am, if positive will add steroids - He is refusing PT/OT, so dispo is unknown at the moment. I continue to encourage ambulation and to get out of bed, so far unsuccessful - Afebrile without a leukocytosis - C/w zaneflex and narcotics for pain - CT brain negative for bleed 2. A-fib/Sick sinus syndrome/PAD/HTN/HLD - He is on xarelto as an outpatient which is now on hold for his LP, can restart on wednesday night - He continues to be in sinus rhythm and has a h/o pacemaker placement 3. GERD - stable - c/w PPI 4. Dementia/Depression - stable, struggling with the pain - c/w aricept and cymbalta - This may be part of his dementia since his has noticed that it has been worsening lately 5. Urinary retention - had multiple straight caths and had to have a rankin placed DVT: SCDs Code Visit Inpatient E&M: 40938 Subs Hosp L2
--- NOTE | 2018-03-20 06:47 | PN_ITS ---
Patient Problems: Active and Suspected Problems (Last Reviewed 03/16/18 @ 17:27 by Olvin Chopra DO) Intractable headache (Acute) Neck stiffness (Acute) Subjective: continues with pain, nothing seems to help, afebrile, and no WBC. Refuses to work with PT Vitals/I&O's: Vital Signs Temp Pulse Resp BP Pulse Ox 98.6 F 80 18 114/77 92 03/20/18 02:50 03/20/18 03:02 03/20/18 03:02 03/20/18 02:50 03/20/18 03:02 Oxygen Flow Rate (L/min) [2] 4 Oxygen Flow Rate (L/min) [1 ( 4 Initial Baseline)] Oxygen Flow Rate (L/min) 3 Oxygen Delivery Method [2] Nasal Cannula Oxygen Delivery Method [1 ( Nasal Cannula Initial Baseline)] Oxygen Delivery Method Nasal Cannula Weight: 175 lb 0.012 oz Body Mass Index (BMI) 25.1 Intake and Output for Last 24 Hours 03/18/18 03/19/18 03/20/18 23:59 23:59 23:59 Intake Total 2873 / 2873 1725 / 1725 2024 / 2024 Output Total 1400 / 1400 610 / 610 475 / 475 Balance 1473 / 1473 1115 / 1115 1550 / 1550 General: Alert, Oriented x3, Cooperative, - - In pain HEENT: Atraumatic, EOMI, Normocephalic Oral: Moist Mucosa Neck: No JVD, - - lateral cervical pain and unable to move neck, mostly muscular Lungs: Clear to auscultation, Normal air movement, No rhonchi, No wheeze, No rales Cardiovascular: Regular rate, Regular Rhythm, Normal S1, Normal S2, No murmurs Abdomen: Soft, Non Tender, Non-Distended, No Hepato-splenomegaly Extremities: No edema, Capillary Refill Less than 3 Seconds Skin: No rashes, No breakdown Neurological: Neuro grossly intact, Sensory exam intact to light touch and pain Psych/Mental Status: Normal Affect, Appropriate Microbiology Past 72 Hours 03/18/18 09:23 Csf, Spinal Fluid Gram Stain - Final 03/18/18 09:23 Csf, Spinal Fluid CSF Culture - Preliminary No growth in 24 hours. Final to follow. 03/16/18 12:30 Mucosa - Throat Group A Streptococcus Rapid Screen - Final Laboratory Results 03/19/18 06:50: WBC 10.7, RBC 4.32 L, Hgb 11.8 L, Hct 37.8 L, MCV 87.5, MCH 27.3, MCHC 31.2 L, RDW 16.9 H, RDW Differential 54.2 H, Plt Count 228, MPV 11.2, Immature Gran % (Auto) 0.200, Neut % (Auto) 79.5 H, Lymph % (Auto) 9.8 L, [place] % (Auto) 10.1 H, Eos % (Auto) 0.2, Baso % (Auto) 0.2, Absolute Neuts (auto) 8.5 H, Absolute Lymphs (auto) 1.05, Total Counted Not Reportable 03/19/18 06:50: Sodium 138, Potassium 3.9, Chloride 102, Carbon Dioxide 29.0, Anion Gap 7, BUN 16, Creatinine 0.83, Estim Creat Clear Calc 74.51, Est GFR (MDRD) Af Amer 114, Est GFR (MDRD) Non-Af 94, BUN/Creatinine Ratio 19.2, Glucose 106, Calcium 8.6 Current Medications Acetaminophen (Tylenol) 650 mg PO Q6H PRN PRN PRN Reason: Mild Pain (1-3)/Temp > 100.7 F Last Admin: 03/19/18 11:06 Dose: 650 mg Cholecalciferol (Vitamin D) 1,000 unit PO DAILY [facility] Last Admin: 03/19/18 09:13 Dose: 1,000 unit Cyanocobalamin (Vitamin B12) 500 mcg PO DAILY [facility] Last Admin: 03/19/18 09:11 Dose: 500 mcg Donepezil HCl (Aricept) 10 mg PO QHS [facility] Last Admin: 03/19/18 21:04 Dose: 10 mg Duloxetine HCl (Cymbalta) 60 mg PO DAILY [facility] Last Admin: 03/19/18 09:11 Dose: 60 mg Ceftriaxone Sodium 2 gm/ (Sodium Chloride) 50 mls @ 100 mls/hr IV Q24 [facility] Last Admin: 03/19/18 11:53 Dose: 100 mls/hr Vancomycin IV Pharmacy to Dose (1 ea/ Sodium Chloride) 500 mls @ 250 mls/hr IV PRN PRN; Protocol PRN Reason: Rx to Dose Vancomycin HCl (Vancomycin) 1,000 mg in 200 mls @ 200 mls/hr IV Q12H [facility] Last Admin: 03/19/18 20:52 Dose: 200 mls/hr Aztreonam 1 gm/ Dextrose 50 mls @ 150 mls/hr IV Q8 [facility] Last Admin: 03/20/18 05:51 Dose: 150 mls/hr Aztreonam 1 gm/ Dextrose 50 mls @ 150 mls/hr IV Q8 [facility] Last Admin: 03/20/18 06:13 Dose: 150 mls/hr Sodium Chloride () 1,000 mls @ 125 mls/hr IV .Q8H [facility] Last Admin: 03/20/18 05:51 Dose: 125 mls/hr Magnesium Hydroxide (Milk Of Magnesia) 30 ml PO DAILY PRN PRN PRN Reason: Constipation Last Admin: 03/19/18 08:16 Dose: 30 ml Melatonin (Melatonin) 10 mg PO QHS [facility] Last Admin: 03/19/18 21:04 Dose: 10 mg Morphine Sulfate () 2 - 4 mg IV Q4H PRN PRN PRN Reason: MOD-SEVERE PAIN (4-10/10) Last Admin: 03/18/18 21:24 Dose: 2 mg Multivitamins/Minerals (Healthy Eyes) 1 tablet PO BIDCM [facility] Last Admin: 03/19/18 16:13 Dose: 1 tablet Nutritional Formula (Lactose Free) (Ensure Clear) 120 ml PO TIDCM [facility] Last Admin: 03/19/18 16:14 Dose: 120 ml Ondansetron HCl (Zofran) 4 mg IV Q8H PRN PRN PRN Reason: NAUSEA Oxycodone HCl (Oxyir) 5 mg PO Q4H PRN PRN PRN Reason: MOD-SEVERE PAIN (4-10/10) Last Admin: 03/20/18 05:57 Dose: 5 mg Pantoprazole Sodium (Protonix) 20 mg PO DAILY [facility] Last Admin: 03/19/18 10:44 Dose: 20 mg Pregabalin (Lyrica) 300 mg PO QHS [facility] Last Admin: 03/19/18 21:04 Dose: 300 mg Sodium Chloride () 5 - 15 ml IV UD PRN PRN Reason: SALINE FLUSH Last Admin: 03/18/18 23:16 Dose: 10 ml Tamsulosin HCl (Flomax) 0.4 mg PO DAILY@1730 [facility] Last Admin: 03/19/18 17:54 Dose: 0.4 mg Tizanidine HCl (Zanaflex) 2 mg PO Q6H PRN PRN Reason: SPASMS Last Admin: 03/20/18 05:56 Dose: 2 mg Medical Necessity - Tobacco Use Smoking Status: Current every day smoker Tobacco Use: Cigarettes Assessment/Plan All Active Problems (Last Reviewed 03/16/18 @ 17:27 by Olvin Chopra DO) Intractable headache (Acute) Neck stiffness (Acute) Fever (Acute) Intractable low back pain (Acute) Shortness of breath (Acute) Aspiration pneumonia (Resolved) S/P TURP (status post transurethral resection of prostate) (Resolved) pacemaker implantation (Resolved) History of inguinal hernia repair (Resolved) History of hemorrhoidectomy (Resolved) History of prostatectomy (Resolved) right ochiectomy (Resolved) History of appendectomy (Resolved) Palpitations (Acute) Dizziness and giddiness (Resolved) Syncope (Resolved) Cough (Resolved) Dyspnea (Acute) Bronchitis (Resolved) Acute respiratory failure with hypoxia (Acute) Respiratory failure with hypoxia (Resolved) Unstable angina (Resolved) Chest pain (Resolved) Acute kidney injury (Acute) Sepsis (Resolved) 1. Intractable headache wit midline cervical neck pain and inability to move his neck d/t pain - Concern that this is mostly musculoskeletal - LP with CSF protein was elevated and there was 0.001 WBC present and no RBC. Gram stain is also negative - prelim cultures are negative, DC abx - Check ESR and CRP, if negative will proceed with MRI in the am, if positive will add steroids - He is refusing PT/OT, so dispo is unknown at the moment. I continue to e ncourage ambulation and to get out of bed, so far unsuccessful - Afebrile without a leukocytosis - C/w zaneflex and narcotics for pain - CT brain negative for bleed 2. A-fib/Sick sinus syndrome/PAD/HTN/HLD - He is on xarelto as an outpatient which is now on hold for his LP, can restart on wednesday night - He continues to be in sinus rhythm and has a h/o pacemaker placement 3. GERD - stable - c/w PPI 4. Dementia/Depression - stable, struggling with the pain - c/w aricept and cymbalta - This may be part of his dementia since his has noticed that it has been worsening lately 5. Urinary retention - had multiple straight caths and had to have a rankin placed DVT: SCDs Code Visit Inpatient E&M: 16629 Subs Hosp L2
[2018-03-20] MEDS: Pantoprazole Sodium 20 MG Tablet PO (08:10)
[2018-03-20] MEDS: DULoxetine Hcl 60 MG Capsule PO (08:10)
[2018-03-20] MEDS: Cyanocobalamin 500 MCG Tablet PO (08:10)
[2018-03-20] MEDS: Vancomycin IV 1,000 MG/200 ML BAG 200 MG IV (08:59)
[2018-03-20 09:27] LABS: Erythrocyte Sedimentation Rate 68 mm/hr (0-20)
--- NOTE | 2018-03-20 10:14 | RAD_ITS ---
STUDY: X-RAY CHEST REASON FOR EXAM: Male, 77 years old. Shortness of breath and dyspnea. TECHNIQUE: Single AP portable view of the chest. COMPARISON: 03/16/2018. FINDINGS: There again is a dual-chamber left pacemaker in stable position. There is mild infiltrate/atelectasis in the right lower lung. There is no demonstrated pleural abnormality. There is borderline cardiomegaly. Normal mediastinum and elis. Normal visualized pulmonary arteries. There is atherosclerotic calcification of the aortic arch with tortuosity. The bony structures are unchanged. There is no demonstrated abnormality of the visualized soft tissue structures of the upper abdomen. RAD/Chest 1 View (Portable) IMPRESSION: Mild right lower lung infiltrate/atelectasis. Electronically Signed: Catracho Shepherd MD at 13:25 EST Tel , Service support ,
[2018-03-20] MEDS: Acetaminophen 325 MG Tablet 650 MG PO ×2 (11:47→23:42)
[2018-03-20] MEDS: Ipratropium/Albuterol Sulfate 3 ML AMPUL.NEB INHALATION ×3 (15:29→23:50)
[2018-03-20] MEDS: 0.9% NaCl Peripheral Flush Adult/Peds IV ×3 (16:05→23:34)
[2018-03-20] MEDS: levoFLOXacin 750 MG Tablet PO (16:08)
[2018-03-20] MEDS: Tamsulosin HCl 0.4 MG Capsule PO (17:44)
[2018-03-20] MEDS: MELATONIN 10 MG TABLET PO (22:49)
[2018-03-20] MEDS: Donepezil HCl 10 MG Tablet PO (22:49)
[2018-03-20] MEDS: Pregabalin 75 MG Capsule 300 MG PO (22:49)
[2018-03-20] MEDS: Morphine 2 MG/ML Syringe IV (22:55)
[2018-03-21] VITALS (12 sets, daily range): BP systolic 91–119; BP diastolic 59–75; PULSE 64–93; RESP 16–19; TEMP 36.4–36.9; O2SAT 87–95
--- NOTE | 2018-03-21 00:45 | CPS ---
applied 2 lpm bleed in to pt's home Bipap unit
[2018-03-21] MEDS: levoFLOXacin 750 MG Tablet PO (05:06)
[2018-03-21] MEDS: oxyCODONE 5 MG Tablet PO (05:06)
[2018-03-21 06:00] LABS: Absolute Lymphocyte Count 0.35 X10^3/ul (0.83-4.51); Absolute Neutrophil Count 8.5 X10^3/uL (2.0-7.7); Basophil# 0.01 X10^3/uL; Basophil% 0.1 % (0-1); Hematocrit 33.8 % (40-54); Hemoglobin 10.5 g/dl (13.0-16.5); Lymphocyte # 0.35 X10^3/ul (4.0); Lymphocyte % 3.9 % (19-41); Mean Corp Hgb Conc 31.1 g/gl (32-36); Mean Corpuscular Hgb 26.8 pg (27.0-32.0); Mean Corpuscular Volume 86.2 fL (80-94); Mean Platelet Vol. 10.4 fl (6.2-12.0); Monocyte% 2.2 % (0-10); Neutrophil # 8.52 X10^3/uL (2.7-7.7); Neutrophil % 93.7 % (47-70); Platelet Count 222 K/mm3 (150-450); RBC Distribution Width CV 17.1 % (11.6-14.6); RBC Distribution Width SD 54.1 fl (35.1-43.9); Red Blood Count 3.92 M/mm3 (4.6-6.2); White Blood Count 9.1 K/mm3 (4.4-11.0)
[2018-03-21 06:06] LABS: Differential Indicated SCAN CRITERIA MET; POSITIVE COUNT NO; POSITIVE DIFFERENTIAL YES; POSITIVE MORPHOLOGY NO
[2018-03-21 06:14] LABS: Anion Gap 10 (5-15); BUN 20 mg/dL (7-18); BUN/Creat Ratio 21.2 RATIO (10-20); Calcium,Total 8.6 mg/dL (8.5-10.1); Chloride 106 mmol/L (98-107); Creatinine, Serum 0.94 mg/dL (0.70-1.30); EST Glomerular Filtration Rate 82 mL/min (>60); Est Glom Filt Rate - Afr Amer 99 mL/min (>60); Estimated Creatinine Clearance 65.79 ml/min; Glucose 151 mg/dL (74-106); Potassium 3.7 mmol/L (3.5-5.1); Sodium Level 143 mmol/L (136-145)
[2018-03-21 06:35] LABS: Differential Comment SCANNED
[2018-03-21] MEDS: Ipratropium/Albuterol Sulfate 3 ML AMPUL.NEB INHALATION ×5 (07:45→23:14)
[2018-03-21] MEDS: Pantoprazole Sodium 20 MG Tablet PO (10:53)
[2018-03-21] MEDS: DULoxetine Hcl 60 MG Capsule PO (10:54)
[2018-03-21] MEDS: Cyanocobalamin 500 MCG Tablet PO (10:55)
[2018-03-21] MEDS: 0.9% NaCl Peripheral Flush Adult/Peds IV (10:55)
--- NOTE | 2018-03-21 12:53 | CASEMGMT ---
Per MARY Santa, referral needs faxed to [facility]. Voicemail left for Lauren at [facility] letting her know that referral would be faxed over. Fax confirmation received. Consuelo Cervantes LPN Clinical Support
[2018-03-21] MEDS: Acetaminophen 325 MG Tablet 650 MG PO (14:11)
--- NOTE | 2018-03-21 16:05 | CASEMGMT ---
Social Work Note SW received message from Lauren at [facility] stating she is unable to accept pt due to pt being verbally aggressive to staff, threatening to punch staff, pt refusing therapy and pt having agitation. SW in to update pt of this. Pt states he would like this worker to call his to determine discharge plans. Pt states that his won't be in again tonight but will be back in tomorrow. SW to follow up with pt's tomorrow to get other options for SNF for pt. Plan: SNF pending acceptance. Pt has already had three midnights for Medicare Hyacinth Flores SHIM PLUG CUTTER, DATA COLLECTION TECHNICIAN
[2018-03-21] MEDS: Tamsulosin HCl 0.4 MG Capsule PO (17:12)
[2018-03-21] MEDS: Rivaroxaban 15 MG Tablet PO (17:12)
--- NOTE | 2018-03-21 18:35 | PN_ITS ---
Patient Problems: Active and Suspected Problems (Last Reviewed 03/16/18 @ 17:27 by Olvin Chopra DO) Intractable headache (Acute) Neck stiffness (Acute) Subjective: Patient seen and examined today, he states his neck pain is better, his is in the room and I talked with her at length. Patient had been refusing to participate with physical therapy, I had a discussion with him and his concerning what the plan would be when the patient is discharged from the hospital, admitted that she was unable to take care of him at the present time at home and I suggested that he consider going to a intermediate facility for short-term rehab-patient agreed and his agreed with this plan. I have stopped the patient's IV Solu-Medrol today and place him on oral prednisone, I have taken him off of antibiotics at this time, patient will still need PT and OT I feel that the patient's main problem concerning this admission is arthritic pain. - Physical Exam General: Alert, Oriented x3, Cooperative HEENT: Atraumatic, PERRLA, EOMI, Normocephalic Oral: Moist Mucosa Neck: Supple, No JVD, Negative Carotid Bruits Lungs: Clear to auscultation, Normal air movement, No rhonchi, No wheeze, No rales Cardiovascular: Regular rate, Regular Rhythm, Normal S1, Normal S2, No murmurs, No Ectopic Activity Abdomen: Bowel Sounds Present, Soft, Non Tender, Non-Distended Extremities: No clubbing, No cyanosis, No edema, Capillary Refill Less than 3 Seconds Skin: No rashes, No breakdown Neurological: Cranial nerves II-XII grossly intact, Neuro grossly intact, Sensory exam intact to light touch and pain, Coordination normal Psych/Mental Status: Normal Affect, Appropriate, Alert and oriented to time, place, person, mood and affect Vital Signs Temp Pulse Resp BP Pulse Ox 98.4 F 90 16 108/75 91 03/21/18 14:00 03/21/18 15:39 03/21/18 15:39 03/21/18 14:00 03/21/18 15:39 Oxygen Flow Rate (L/min) [2] 4 Oxygen Flow Rate (L/min) [1 ( 4 Initial Baseline)] Oxygen Flow Rate (L/min) 2 Oxygen Delivery Method [2] Nasal Cannula Oxygen Delivery Method [1 ( Nasal Cannula Initial Baseline)] Oxygen Delivery Method Room Air Weight: 79.379 kg Body Mass Index (BMI) 25.1 Intake and Output for Last 24 Hours 03/19/18 03/20/18 03/21/18 23:59 23:59 23:59 Intake Total 1725 / 1725 3444 / 3444 1575 / 1575 Output Total 610 / 610 850 / 850 1620 / 1620 Balance 1115 / 1115 2594 / 2594 -45 / -45 Microbiology Past 72 Hours 03/18/18 09:23 Gram Stain - Final Csf, Spinal Fluid CSF Culture - Final No growth in 72 hours. Laboratory Tests Past 24 Hrs 03/21/18 03/21/18 05:20 05:20 WBC 9.1 RBC 3.92 L Hgb 10.5 L Hct 33.8 L MCV 86.2 MCH 26.8 L MCHC 31.1 L RDW 17.1 H RDW Differential 54.1 H Plt Count 222 MPV 10.4 Immature Gran % (Auto) 0.100 Neut % (Auto) 93.7 H Lymph % (Auto) 3.9 L [place] % (Auto) 2.2 Eos % (Auto) 0.0 Baso % (Auto) 0.1 Absolute Neuts (auto) 8.5 H Absolute Lymphs (auto) 0.35 L Total Counted Not Reportable Differential Comment SCANNED Sodium 143 Potassium 3.7 Chloride 106 Carbon Dioxide 27.0 Anion Gap 10 BUN 20 H Creatinine 0.94 Estim Creat Clear Calc 65.79 Est GFR (MDRD) Af Amer 99 Est GFR (MDRD) Non-Af 82 BUN/Creatinine Ratio 21.2 H Glucose 151 H Calcium 8.6 Medical Necessity - Tobacco Use Smoking Status: Current every day smoker Tobacco Use: Cigarettes Assessment/Plan All Active Problems (Last Reviewed 03/16/18 @ 17:27 by Olvin Chopra DO) Intractable headache (Acute) Neck stiffness (Acute) Fever (Acute) Intractable low back pain (Acute) Shortness of breath (Acute) Aspiration pneumonia (Resolved) S/P TURP (status post transurethral resection of prostate) (Resolved) pacemaker implantation (Resolved) History of inguinal hernia repair (Resolved) History of hemorrhoidectomy (Resolved) History of prostatectomy (Resolved) right ochiectomy (Resolved) History of appendectomy (Resolved) Palpitations (Acute) Dizziness and giddiness (Resolved) Syncope (Resolved) Cough (Resolved) Dyspnea (Acute) Bronchitis (Resolved) Acute respiratory failure with hypoxia (Acute) Respiratory failure with hypoxia (Resolved) Unstable angina (Resolved) Chest pain (Resolved) Acute kidney injury (Acute) Sepsis (Resolved) #1 generalized cephalgia-etiology unclear, possibly secondary to severe degenerative joint disease of the cervical spine, continue p.o. prednisone, narcotic pain medications as needed, continue PT and OT, patient will need temporary placement in a intermediate facility for rehab #2 urinary retention secondary to BPH-patient had a Chambers placed, I have elected to keep the Chambers in place at this time and add Proscar to the patient's medications #3 underlying atrial fibrillation-probably in paced rhythm, patient's Xarelto will be restarted #4 generalized osteoarthritis-patient's spinal tap fluid is negative for growth, I do not feel he needs antibiotics at this time #5 chronic obstructive pulmonary disease #6 obstructive sleep apnea #7 hypertension #8 BPH #9 right lower lobe infiltrate versus atelectasis-patient shows no evidence of pneumonia at this time, again I stopped his antibiotics and will observe for any temperature elevation #10 multilevel degenerative disc disease of the cervical spine Code Visit Inpatient E&M: 31093 Subs Hosp L2
[2018-03-21] MEDS: MELATONIN 10 MG TABLET PO (21:26)
[2018-03-21] MEDS: Donepezil HCl 10 MG Tablet PO (21:26)
[2018-03-21] MEDS: Pregabalin 75 MG Capsule 300 MG PO (21:27)
[2018-03-22] VITALS (7 sets, daily range): BP systolic 89–131; BP diastolic 60–89; PULSE 77–89; RESP 16–20; TEMP 36.7–37.1; O2SAT 88–94
[2018-03-22] MEDS: oxyCODONE 5 MG Tablet PO (02:05)
[2018-03-22] MEDS: Ipratropium/Albuterol Sulfate 3 ML AMPUL.NEB INHALATION ×3 (06:43→15:01)
[2018-03-22] MEDS: predniSONE 20 MG Tablet 40 MG PO (07:48)
[2018-03-22] MEDS: Aspirin 81 MG TAB.CHEW PO (07:48)
[2018-03-22] MEDS: Acetaminophen 325 MG Tablet 650 MG PO (07:48)
[2018-03-22] MEDS: DULoxetine Hcl 60 MG Capsule PO (10:35)
[2018-03-22] MEDS: Pantoprazole Sodium 20 MG Tablet PO (10:36)
[2018-03-22] MEDS: Cyanocobalamin 500 MCG Tablet PO (10:36)
[2018-03-22] MEDS: Finasteride 5 MG Tablet PO (10:44)
--- NOTE | 2018-03-22 11:30 | CASEMGMT ---
Social Work Note SW met with pt and pt's to confirm discharge plans. Pt and pt's agreeable to referral being sent to [facility]. SW updated Wilfrid Cervantes, quality management, to [facility] Plan: SNF pending acceptance Hyacinth Flores TENTER FRAME BACK TENDER, OIL BURNER SERVICER AND INSTALLER
--- NOTE | 2018-03-22 12:32 | CASEMGMT ---
Per MARY Santa, referral to be sent to [facility], as [facility] is unable to accept patient. Call placed to [facility], admissions staff unavailable at the moment. Notified optical glass silverer that referral would be faxed, correct fax number confirmed. Fax confirmation received. Consuelo Cervantes LPN Clinical Support
--- NOTE | 2018-03-22 13:27 | CASEMGMT ---
Received call from Melvi at [facility], questioning what SNF patient was previously at to determine days that have been used. Contacted MARY Murphy. SW will look into this. Consuelo Cervantes LPN Clinical Support
--- NOTE | 2018-03-22 13:57 | CASEMGMT ---
Spoke with Melvi at [facility]. Passed along info from re: patient admitted to [facility] 01/27 - 02/18 and that patient did not leave [facility]. Melvi reports that clinical team continues to review to see if facility can accept patient. Consuelo Cervantes LPN Clinical Support
--- NOTE | 2018-03-22 14:13 | CASEMGMT ---
Received phone call from Melvi at [facility], facility is not able to accept patient. SW notified of same. Consuelo Cervantes LPN Clinical Support
--- NOTE | 2018-03-22 15:30 | CASEMGMT ---
Social Work Note SW received phone call from Wilfrid Cervantes stating [facility] is unable to accept pt. SW in to update pt and pt's of this. Pt and pt's agreeable to TCU at [facility]. SW explained that this worker will have to check on bed availability and if TCU will be able to accept pt. Pt and pt's states understanding. SW placed a call to Giana in TCU. Per Giana she is able to accept pt today. MARY updated JULIUS Garces, physician, pt and pt's that TCU is able to accept pt. 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 Pt and pt's states understanding. SW updated charging car operator that pt may discharge to TCU today. Plan: TCU today Hyacinth Flores PASTRY ARTIST, WOOD MECHANIST
[2018-03-22] MEDS: Rivaroxaban 15 MG Tablet PO (16:59)
[2018-03-22] MEDS: Tamsulosin HCl 0.4 MG Capsule PO (16:59)
--- NOTE | 2018-03-22 17:43 | PCM.TXEXTCAR ---
- Diet 03/16/18 18:51 Diet: Regular Diet Food consistency:: Regular Liquid Consistency:: Regular/Thin - Wound(s) Left knee Wound Type: scab - Therapies Weight Bearing: Full weight bearing Physical Therapy: Eval and Treat Occupational Therapy: Eval and Treat - Problem/Diagnosis (1) Intractable headache Status: Acute Current Visit: Yes (2) COPD (chronic obstructive pulmonary disease) Status: Chronic Current Visit: No (3) Pulmonary hypertension Status: Chronic Current Visit: No (4) Stage 2 moderate COPD by GOLD classification Status: Chronic Current Visit: No (5) ARLENE (obstructive sleep apnea) Status: Chronic Current Visit: No (6) Cardiomyopathy Status: Chronic Current Visit: No (7) Coronary artery disease Status: Chronic Comment: S/P LAD and LCx stenting Current Visit: No (8) BPH (benign prostatic hypertrophy) with urinary obstruction Status: Chronic Current Visit: No (9) Degenerative joint disease involving multiple joints Status: Chronic Current Visit: Yes (10) Paroxysmal atrial fibrillation Status: Chronic Current Visit: Yes - Allergies/Procedures Done in Hospital Allergies/Adverse Reactions: Allergies lactose Allergy (Severe, Verified 03/16/18 11:21) unknown Penicillins Allergy (Severe, Verified 03/16/18 11:21) Anaphylaxis adhesive Allergy (Verified 03/16/18 11:21) Rash Sulfa (Sulfonamide Antibiotics) Allergy (Verified 03/16/18 11:21) Unknown diazepam [From Valium] Adverse Reaction (Verified 03/16/18 11:21) hyper opposite effect desired HYPER OPPOSITE EFFECT DESIRED niacin [From Niaspan Extended-Release] Adverse Reaction (Verified 03/16/18 11:21) low bp LOW BP simvastatin Adverse Reaction (Verified 03/16/18 11:21) Pain in joints Procedures: - - LUMBAR PUNCTURE - Type of Care/Length of Stay Estimated LOS: Convalescent Care Less Than 30 days Type of Care Needed: Skilled Rehab Potential: Good Prognosis: Good - Additional Orders/Day of Discharge Additional Orders: REMOVE BERNARD CATHETER IN 3 DAYS. USE HOME CPAP WHEN SLEEPING H&P will serve as current which was dated: 03/16/18 Day of Discharge: 03/22/18 - Follow Up Care Primary Care Physician: Stephanie Fuchs MD [Primary Care Provider] -
--- NOTE | 2018-03-22 18:50 | NURSING ---
Addendum entered by Moni Zapata 03/22/18 19:53: correction: spoke with son, Harry, as this RN was unable to reach , Hellen. Harry reported that he would pass new room number on to Hellen. Original Note: report called to Sarah in TCU. pt transported by KELLY Bermudez to TCU room 12. called to let her know about pt discharge and new room number
--- NOTE | 2018-03-24 09:38 | DS.PCM_ITS ---
Discharge Date and Diagnosis - Problem List Patient Problems: Active and Suspected Problems (Last Updated 03/21/18 @ 18:31 by Modesto Mclaughlin DO) Headache (Acute) Neck pain (Acute) Shoulder pain (Acute) Date of Admission: 03/16/18 Date of Discharge: 03/22/18 - Primary Discharge Diagnosis Active and Suspected Problems (Last Updated 03/21/18 @ 18:31 by Modesto Mclaughlin DO) #1 generalized cephalgia-etiology unclear, possibly secondary to severe degenerative joint disease of the cervical spine #2 urinary retention secondary to BPH #3 underlying atrial fibrillation-probably in paced rhythm #4 generalized osteoarthritis #5 chronic obstructive pulmonary disease #6 obstructive sleep apnea #7 hypertension #8 BPH #9 right lower lobe infiltrate secondary to atelectasis #10 multilevel degenerative disc disease of the cervical spine - Secondary Discharge Diagnosis Chronic Problems (Last Updated 03/21/18 @ 18:31 by Modesto Mclaughlin DO) Degenerative joint disease involving multiple joints (Chronic) Paroxysmal atrial fibrillation (Chronic) BPH (benign prostatic hyperplasia) (Chronic) Depression (Chronic) Peripheral arterial occlusive disease (Chronic) Alzheimer's disease (Chronic) Neuropathic pain (Chronic) CHF (congestive heart failure) (Chronic) diastolic COPD (chronic obstructive pulmonary disease) (Chronic) Pulmonary hypertension (Chronic) Tobacco abuse (Chronic) AAA (abdominal aortic aneurysm) (Chronic) PVD (peripheral vascular disease) (Chronic) Long-term use of high-risk medication (Chronic) Stage 2 moderate COPD by GOLD classification (Chronic) Malaise and fatigue (Chronic) ARLENE (obstructive sleep apnea) (Chronic) Central sleep apnea (Chronic) S/P PTCA (percutaneous transluminal coronary angioplasty) (Chronic) Cardiomyopathy (Chronic) SSS (sick sinus syndrome) (Chronic) Autonomic dysfunction (Chronic) HLD (hyperlipidemia) (Chronic) PAD (peripheral artery disease) (Chronic) Community acquired pneumonia (Chronic) Coronary artery disease (Chronic) S/P LAD and LCx stenting BPH (benign prostatic hypertrophy) with urinary obstruction (Chronic) Depressive disorder (Chronic) HTN (hypertension) (Chronic) Atrial fibrillation (Chronic) GERD (gastroesophageal reflux disease) (Chronic) History of orchiectomy, unilateral (Chronic) Pacemaker (Chronic) Nephrolithiasis (Chronic) Personality disorder (Chronic) Hospital Course and Treatment Operations: None Procedures: - - Lumbar puncture Summary of Care Provided: The patient is a 77 year old M who was seen in the emergency room at [facility] with chief complaint of neck pain, shoulder pain, and headache. Patient denied any recent injury. Workup in the emergency room included CBC and Menard panel which were unremarkable, chest x-ray showed what appeared to be atelectasis in the right lung base, he was given IV analgesics, CT of the brain was performed and showed no acute abnormalities. CT of the cervical spine was also performed which showed degenerative disc disease of the cervical spine. Lumbar puncture was not performed in the emergency room due to the fact the patient was on Xarelto. Patient was admitted to the hospitalist service on MedSurg 3, his Xarelto was held, and he was given analgesics for his cephalgia and underwent a lumbar puncture which was not abnormal and the culture of the lumbar fluid did not grow out any organisms. Patient was seen by PT and OT, it was felt he would benefit from correction placement for short period of time for ongoing rehab. Patient had to have a Chambers catheter inserted for urinary retention. Patient's chest x-ray was repeated and showed again a right lower lobe abnormality which was felt by this examiner to be secondary to atelectasis, patient had briefly been put on antibiotics in the hospital but 80s antibiotics were stopped. Patient was placed on IV corticosteroids and then transition to oral prednisone, this helped his neck pain and headache greatly and also his right shoulder stiffness. On 03/22/18, patient was seen and examined: On examination he appeared in good health and spirits. Vital signs as documented. Skin warm and dry and without overt rashes. Neck without JVD. Lungs clear. Heart exam notable for regular rhythm, normal sounds and absence of murmurs, rubs or gallops. Abdomen unremarkable and without evidence of organomegaly, masses, or abdominal aortic enlargement. Extremities nonedematous. Neuro: Cranial nerves II through XII are grossly intact, no focal motor deficits were noted. Psych: Patient was alert and oriented x3, he did not appear anxious or depressed. 03/22/18, patient was seen and examined and felt to be stable for transfer to a correction facility for further care. Patient Problems: Active and Suspected Problems (Last Updated 03/21/18 @ 18:31 by Modesto Mclaughlin DO) Headache (Acute) Neck pain (Acute) Shoulder pain (Acute) - Physical Exam Vital Signs Temp Pulse Resp BP Pulse Ox 98.7 F 80 18 93/62 93 03/22/18 17:00 03/22/18 17:00 03/22/18 17:00 03/22/18 17:00 03/22/18 17:00 Oxygen Flow Rate (L/min) [2] 4 Oxygen Flow Rate (L/min) [1 ( 4 Initial Baseline)] Oxygen Flow Rate (L/min) 2 Oxygen Delivery Method [2] Nasal Cannula Oxygen Delivery Method [1 ( Nasal Cannula Initial Baseline)] Oxygen Delivery Method Room Air Weight: 79.379 kg Body Mass Index (BMI) 25.1 Intake and Output for Last 24 Hours 03/22/18 03/23/18 03/24/18 23:59 23:59 23:59 Intake Total 1290 / 1290 Output Total 650 / 650 Balance 640 / 640 Microbiology Past 72 Hours 03/18/18 09:23 Gram Stain - Final Csf, Spinal Fluid CSF Culture - Final No growth in 72 hours. Home Medications: Medications to take at Discharge Cholecalciferol (Vitamin D3) [Vitamin D3] 1 tab PO DAILY 06/18/17 Cyanocobalamin [Vitamin B12] 1 tab PO DAILY 06/18/17 Melatonin 10 mg PO QHS 06/18/17 Omeprazole 20 mg PO DAILY 06/18/17 Vit A/Vit C/Vit E/Zinc/Copper [Preservision Areds Softgel] 1 cap PO BID 06/18/17 Aspirin 81 mg PO DAILY 01/22/18 Duloxetine HCl 60 mg PO DAILY 03/16/18 Acetaminophen [Tylenol Tablet] 650 mg PO Q6H PRN PRN tablet 03/22/18 Donepezil HCl [Aricept] 10 mg PO QHS 03/22/18 Finasteride [Proscar] 5 mg PO DAILY 03/22/18 Oxycodone [Oxyir] 5 mg PO Q4H PRN PRN 7 Days #30 tab 03/22/18 Prednisone [Deltasone] 20 mg PO UD 03/22/18 Pregabalin [Lyrica] 300 mg PO QHS 03/22/18 Rivaroxaban [Xarelto] 15 mg PO QPM 03/22/18 Tamsulosin HCl [Flomax] 0.4 mg PO DAILY@1730 03/22/18 Following Prescrptions Were Given to Patient: Oxycodone [Oxyir] 5 mg PO Q4H PRN PRN 7 Days #30 tab PRN Reason: Mod-Severe Pain (-01/26) Primary Care Physician: Stephanie Fuchs MD [Primary Care Provider] - Disposition: [facility] facility Minutes spent on discharge:: 32 Patient Condition:: Stable Medical Necessity - Tobacco Use Smoking Status: Current every day smoker Tobacco Use: Cigarettes Meaningful Use Info Meaningful Use Diagnoses (Choose all that apply): None applicable Code Visit Inpatient E&M: 50115 Disch Hosp
--- OUTSIDE RECORDS SUMMARY | 2018-05-11 21:19 | XMS RPT_ITS ---
:1940 Author Organization [facility] Support Name Relationship Address Phone HUNTER MATSON III [address] + [place] [address] HELLEN HENDRICKSON [address] + [place] [address] R Unknown Unavailable Unavailable HUNTER MATSON III [address] + [place] [address] HELLEN HENDRICKSON [address] + [place] [address] R Unknown Unavailable Unavailable HUNTER MATSON III [address] + [place] [address] HELLEN HENDRICKSON [address] + [place] [address] R Unknown Unavailable Unavailable HUNTER MATSON III [address] + [place] [address] HELLEN HENDRICKSON [address] + [place] [address] R Unknown Unavailable Unavailable HUNTER MATSON III [address] + [place] [address] HELLEN HENDRICKSON [address] + [place] [address] R Unknown Unavailable Unavailable HUNTER MATSON III [address] + [place] [address] HELLEN HENDRICKSON [address] + [place] [address] R Unknown Unavailable Unavailable HUNTER MATSON III [address] + [place] [address] HELLEN HENDRICKSON [address] + [place] [address] R Unknown Unavailable Unavailable HUNTER MATSON III [address] + [place] [address] HELLEN HENDRICKSON [address] + [place] [address] R Unknown Unavailable Unavailable HUNTER MATSON III [address] + [place] [address] HELLEN HENDRICKSON [address] + [place] [address] R Unknown Unavailable Unavailable HUNTER MATSON III [address] + [place] [address] HELLEN HENDRICKSON [address] + [place] [address] R Unknown Unavailable Unavailable Hellen Hendrickson [address] + [place] [address] Madhavi Emery, [facility] [place] . R Unknown Unavailable Unavailable Hellen Hendrickson [address] + [place] [address] Madhavi Emery, [facility] [facility] [place] . R Unknown Unavailable Unavailable Hellen Hendrickson [address] + [place] [address] Madhavi Emery [facility] . + ., [place] . R Unknown Unavailable Unavailable Hellen Hendrickson [address] + [place] [address] Madhavi Emery [facility] . + ., [place] . R Unknown Unavailable Unavailable Hellen Hendrickson [address] + [place] [address] Hendrickson Yuly, [facility] . + ., [place] . R Unknown Unavailable Unavailable HELLEN HENDRICKSON [address] + [place] [address] MADHAVI EMERY, H[facility] Science GroupSon Unavailable + R Unknown Unavailable Unavailable HENDRICKSON, HELLEN [address] + [place] [address] MADHAVI EMERY, HUNTER [facility] Unavailable + R Unknown Unavailable Unavailable HELLEN HENDRICKSON [address] + [place] [address] MADHAVI EMERY, HUNTER [facility] Unavailable + R Unknown Unavailable Unavailable HELLEN HENDRICKSON [address] + [place] [address] MADHAVI EMERY, HUNTER [facility] Unavailable + R Unknown Unavailable Unavailable HELLEN HENDRICKSON [address] + [place] [address] MADHAVI EMERY, HUNTER [facility] Unavailable + R Unknown Unavailable Unavailable HELLEN HENDRICKSON [address] + [place] [address] ARTEM HENDRICKSON IIIH Natural[facility] Unavailable + R Unknown Unavailable Unavailable HELLEN HENDRICKSON [address] + [place] [address] MADHAVI EMERY, HUNTER [facility] Unavailable + R Unknown Unavailable Unavailable HELLEN HENDRICKSON [address] + [place] [address] MADHAVI EMERY, HUNTER [facility] Unavailable + R Unknown Unavailable Unavailable Hellen Hendrickson [address] + [place] [address] Madhavi Emery, [facility] . + ., [place] . R Unknown Unavailable Unavailable Hellen Hendrickson [address] + [place] [address] Hendrickson Iii, [facility] . + ., [place] . R Unknown Unavailable Unavailable Hellen Hendrickson [address] + [place] [address] Madhavi Iii, [facility] . + ., [place] . R Unknown Unavailable Unavailable Hellen Hendrickson [address] + [place] [address] Hunter Hendrickson Iii [facility] . + ., [place] . R Unknown Unavailable Unavailable HELLEN HENDRICKSON [address] + [place] [address] HUNTER HENDRICKSON III Natural[facility] Unavailable + R Unknown Unavailable Unavailable HELLEN HENDRICKSON [address] + [place] [address] HUNTER HENDRICKSON III Natural[facility] Unavailable + R Unknown Unavailable Unavailable HELLEN HENDRICKSON [address] + [place] [address] HUNTER HENDRICKSON III [facility] [address] + [place] [address] R Unknown Unavailable Unavailable HELLEN HENDRICKSON [address] + [place] [address] HUNTER HENDRICKSON III Natural[facility] Unavailable + R Unknown Unavailable Unavailable HELLEN HENDRICKSON Spouse Unavailable + HELLEN HENDRICKSON [address] + [place] [address] HUNTER HENDRICKSON III Natural[facility] [address] + [place] [address] R Unknown Unavailable Unavailable HELLEN HENDRICKSON [address] + [place] [address] HUNTER HENDRICKSON III Natural[facility] [address] + [place] [address] R Unknown Unavailable Unavailable HELLEN HENDRICKSON Spouse Unavailable + HELLEN HENDRICKSON [address] + [place] [address] MADHAVI EMERY, HUNTER [facility] [address] + [place] [address] R Unknown Unavailable Unavailable HELLEN HENDRICKSON [address] + [place] [address] MADHAVI EMERY, HUNTER [facility] [address] + [place] [address] R Unknown Unavailable Unavailable HELLEN HENDRICKSON [address] + [place] [address] MADHAVI EMERY, HUNTER [facility] [address] + [place] [address] R Unknown Unavailable Unavailable HELLEN HENDRICKSON [address] + [place] [address] MADHAVI EMERY, HUNTER [facility] [address] + [place] [address] R Unknown Unavailable Unavailable HELLEN HENDRICKSON [address] + [place] [address] MADHAVI EMERY, HUNTER [facility] [address] + [place] [address] R Unknown Unavailable Unavailable HELLEN HENDRICKSON [address] + [place] [address] MADHAVI EMERY, HUNTER [facility] [address] + [place] [address] R Unknown Unavailable Unavailable HELLEN HENDRICKSON [address] + [place] [address] MADHAVI EMERY, HUNTER [facility] [address] + [place] [address] R Unknown Unavailable Unavailable HELLEN HENDRICKSON [address] + [place] [address] MADHAVI EMERY, HUNTER [facility] [address] + [place] [address] R Unknown Unavailable Unavailable HELLEN HENDRICKSON [address] + [place] [address] MADHAVI EMERY, HUNTER [facility] [address] + [place] [address] R Unknown Unavailable Unavailable HELLEN HENDRICKSON [address] + [place] [address] HENDRICKSON III, HUNTER [facility] [address] + [place] [address] R Unknown Unavailable Unavailable HELLEN HENDRICKSON [address] + [place] [address] HENDRICKSON III, HUNTER [facility] [address] + [place] [address] R Unknown Unavailable Unavailable HELLEN HENDRICKSON [address] + [place] [address] MADHAVI EMERY, HUNTER Cosby [address] + [place] [address] R Unknown Unavailable Unavailable HELLEN HENDRICKSON [address] + [place] [address] MADHAVI EMERY, HUNTER Cosby [address] + [place] [address] R Unknown Unavailable Unavailable HELLEN HENDRICKSON [address] + [place] [address] MADHAVI EMERY, HUNTER Cosby [address] + [place] [address] R Unknown Unavailable Unavailable HELLEN HENDRICKSON [address] + [place] [address] HUNTER HENDRICKSON III [address] + [place] [address] R Unknown Unavailable Unavailable HELLEN HENDRICKSON [address] + [place] [address] HUNTER HENDRICKSON III [address] + [place] [address] R Unknown Unavailable Unavailable HELLEN HENDRICKSON [address] + [place] [address] HUNTER HENDRICKSON III [address] + [place] [address] R Unknown Unavailable Unavailable HELLEN HENDRICKSON [address] + [place] [address] HUNTER HENDRICKSON III [address] + [place] [address] R Unknown Unavailable Unavailable HELLEN HENDRICKSON [address] + [place] [address] MADHAVI EMERY, HUNTER Cosby [address] + [place] [address] R Unknown Unavailable Unavailable HELLEN HENDRICKSON [address] + [place] [address] HENDRICKSON III, HUNTER [facility] [address] + [place] [address] R Unknown Unavailable Unavailable HELLEN HENDRICKSON [address] + [place] [address] HENDRICKSON III, HUNTER [facility] [address] + [place] [address] R Unknown Unavailable Unavailable HELLEN HENDRICKSON [address] + [place] [address] HENDRICKSON III, HUNTER [facility] [address] + [place] [address] R Unknown Unavailable Unavailable HELLEN HENDRICKSON [address] + [place] [address] HENDRICKSON III, HUNTER [facility] [address] + [place] [address] R Unknown Unavailable Unavailable HELLEN HENDRICKSON [address] + [place] [address] HENDRICKSON III, HUNTER [facility] [address] + [place] [address] R Unknown Unavailable Unavailable HELLEN HENDRICKSON [address] + [place] [address] HENDRICKSON III, HUNTER [facility] [address] + [place] [address] R Unknown Unavailable Unavailable Care Team Providers Name Role Phone Apollo Arango Referring Unavailable Nba, Apollo Primary Care Unavailable Howie Parikh Attending Unavailable Howie Parikh Attending Unavailable Apollo Arango Referring Unavailable Apollo Arango Primary Care Unavailable Harrison Beatty Attending Unavailable Harrison Beatty Referring Unavailable Apollo Arango Primary Care Unavailable Destinee Jaime Attending Unavailable Apollo Arango Referring Unavailable Apollo Arango Primary Care Unavailable Harrison Rendon Attending Unavailable Apollo Arango Primary Care Unavailable Nba, Apollo Primary Care Unavailable Jair Talbert Attending Unavailable Apollo Arango Primary Care Unavailable Zaynab Beth Attending Unavailable Apollo Arango Primary Care Unavailable Bk Cheek Attending Unavailable Harrison Rendon Attending Unavailable Harrison Rendon Referring Unavailable Arango, Apollo Primary Care Unavailable Hamilton, Caitlin Attending Unavailable Arango, Apollo Referring Unavailable Justice, Harrison Souza Attending Unavailable Arango, Apollo Primary Care Unavailable Susanne, Clint Attending Unavailable Justice, Harrison Souza Referring Unavailable Roof, Han H Attending Unavailable Arango, Apollo Referring Unavailable Roof, Han H Attending Unavailable Hamilton, Caitlin Attending Unavailable Arango, Apollo Referring Unavailable Hamilton, Caitlin Attending Unavailable Hamilton, Caitlin Referring Unavailable Arango, Apollo Primary Care Unavailable Hamilton, Caitlin Attending Unavailable Hamilton, Caitlin Referring Unavailable Arango, Apollo Primary Care Unavailable Hamilton, Caitlin Attending Unavailable Arango, Apollo Referring Unavailable Roof, Han H Attending Unavailable Arango, Apollo Referring Unavailable Arango, Apollo Primary Care Unavailable Arango, Apollo Primary Care Unavailable Ungur, Meena Attending Unavailable Ungur, Meena Attending Unavailable Ungur, Carolyneus Referring Unavailable Arango, Apollo Primary Care Unavailable Arango, Apollo Attending Unavailable Arango, Apollo Referring Unavailable Arango, Apollo Primary Care Unavailable Arango, Apollo Attending Unavailable Arango, Apollo Referring Unavailable Arango, Apollo Primary Care Unavailable Arango, Apollo Attending Unavailable Arango, Apollo Referring Unavailable Arango, Apollo Primary Care Unavailable Bonezzi, Stephanie Attending Unavailable Bonezzi, Stephanie Referring Unavailable Arango, Apollo Primary Care Unavailable Fast, Ct Consulting Unavailable Destinee Jaime Attending Unavailable Arango, Apollo Referring Unavailable Arango, Apollo Primary Care Unavailable Bonezzi, Stephanie Attending Unavailable Bonezzi, Stephanie Referring Unavailable Bonezzi, Stephanie Primary Care Unavailable Jl, Howie Attending Unavailable Arnago, Apollo Referring Unavailable Jl, Howie Attending Unavailable Jl, Howie Referring Unavailable Bonezzi, Stephanie Primary Care Unavailable Mal Au D.O. Attending Unavailable Jl, Howie Referring Unavailable Jl, Howie Attending Unavailable Jl, Howie Referring Unavailable Bonezzi, Stephanie Primary Care Unavailable Bonezzi, Stephanie Attending Unavailable Bonezzi, Stephanie Referring Unavailable Bonezzi, Stephanie Primary Care Unavailable Bonezzi, Stephanie Primary Care Unavailable Josiah Squires Admitting Unavailable TereletskyModesto Attending Unavailable Jake Ley Consulting Unavailable MoodispaApollo merino Consulting Unavailable AgyeisraelgJosiah Admitting Unavailable AgJosiah woody Attending Unavailable Jef, Stephanie Primary Care Unavailable Josiah Squires Consulting Unavailable AnandyeJosiah park Admitting Unavailable Ray Watts Attending Unavailable Bonezzi, Stephanie Primary Care Unavailable Ray Watts Consulting Unavailable Agyepong, Josiah Admitting Unavailable Tereletsky, Modesto Attending Unavailable Bonezzi, Stephanie Primary Care Unavailable Av, Jake Consulting Unavailable Tereletsky, Modesto Consulting Unavailable Agyepong, Josiah Admitting Unavailable Moodispaw, Apollo Attending Unavailable Bonezzi, Stephanie Primary Care Unavailable Av, Jake Consulting Unavailable Moodispaw, Apollo Consulting Unavailable Tereletsky, Modesto Consulting Unavailable Agyepong, Josiah Admitting Unavailable Tereletsky, Modesto Attending Unavailable Bonezzi, Stephanie Primary Care Unavailable Av, Jake Consulting Unavailable Moodispaw, Apollo Consulting Unavailable Tereletsky, Modesto Consulting Unavailable Agyepong, Josiah Admitting Unavailable Moodispaw, Apollo Attending Unavailable Bonezzi, Stephanie Primary Care Unavailable Av, Jake Consulting Unavailable Moodispaw, Apollo Consulting Unavailable Tereletsky, Modesto Consulting Unavailable Agyepong, Josiah Admitting Unavailable Tereletsky, Modesto Attending Unavailable Bonezzi, Stephanie Primary Care Unavailable Av, Jake Consulting Unavailable Moodispaw, Apollo Consulting Unavailable Tereletsky, Modesto Consulting Unavailable Agyepong, Josiah Admitting Unavailable Tereletsky, Modesto Attending Unavailable Bonezzi, Stephanie Primary Care Unavailable Av, Jake Consulting Unavailable Moodispaw, Apollo Consulting Unavailable Tereletsky, Modesto Consulting Unavailable Stefano, Han Attending Unavailable Destinee Jaime Attending Unavailable Bonezzi, Stephanie Referring Unavailable Stefano, Han Attending Unavailable Clint Skinner Attending Unavailable Tereletsky, Modesto Referring Unavailable SusanneClint eason Attending Unavailable TereletskyModesto Referring Unavailable Oneill, Han Attending Unavailable Han Bowers Attending Unavailable Bonezzi, Stephanie Referring Unavailable Bonezzi, Stephanie Primary Care Unavailable Jopperi, Olvin Admitting Unavailable Tereletsky, Modesto Attending Unavailable Jopperi, Olvin Admitting Unavailable Jopperi, Olvin Attending Unavailable Bonezzi, Stephanie Primary Care Unavailable Jopperi, Olvin Consulting Unavailable Jopperi, Olvin Admitting Unavailable Ray Watts Attending Unavailable Bonezzi, Stephanie Primary Care Unavailable Ray Watts Consulting Unavailable Odalispperi, Olvin Admitting Unavailable Ray Watts Attending Unavailable Bonezzi, Stephanie Primary Care Unavailable Kotsonis, Ray F Consulting Unavailable Jopperi, Olvin Admitting Unavailable Bonezzi, Stephanie Primary Care Unavailable Ray Watts F Consulting Unavailable Ray Watts F Attending Unavailable Jopperi, Olvin Admitting Unavailable KotsoniRay lopez F Attending Unavailable Bonezzi, Stephanie Primary Care Unavailable Marcia Wattss F Consulting Unavailable Jopperi, Olvin Admitting Unavailable Tereletsky, Modesto Attending Unavailable Bonezzi, Stephanie Primary Care Unavailable Tereletsky, Modesto Consulting Unavailable Jopperi, Olvin Admitting Unavailable Tereletsky, Modesto Attending Unavailable Bonezzi, Stephanie Primary Care Unavailable Tereletsky, Modesto Consulting Unavailable Brandt, Vinny Chi Admitting Unavailable Brandt, Vinny Chi Attending Unavailable Bonezzi, Stephanie Primary Care Unavailable Jopperi, Olvin Admitting Unavailable Tereletsky, Modesto Attending Unavailable Bonezzi, Stephanie Primary Care Unavailable Tereletsky, Modesto Consulting Unavailable Zumbar, Clint Admitting Unavailable Changumbar, Clint Attending Unavailable Arango, Apollo R Primary Care Unavailable Valdez, Han Merino Attending Unavailable Arango, Apollo R Primary Care Unavailable Valdez, Han Merino Admitting Unavailable Valdez, Han Merino Attending Unavailable Arango, Apollo R Primary Care Unavailable Valdez, Han Merino Attending Unavailable Arango, Apollo R Primary Care Unavailable Valdez, Han Merino Attending Unavailable Arango, Apollo R Primary Care Unavailable Zumbar, Clint Admitting Unavailable Zumbar, Clint Attending Unavailable Arango, Apollo R Primary Care Unavailable Zumbar, Clint Admitting Unavailable Zumbar, Clint Attending Unavailable Arango, Apollo R Primary Care Unavailable Zumbar, Clint Admitting Unavailable Zumbar, Clint Attending Unavailable Arango, Apollo R Primary Care Unavailable Zumbar, Clint Admitting Unavailable Zumbar, Clint Attending Unavailable Arango, Apollo R Primary Care Unavailable Zumbar, Clint Admitting Unavailable Zumbar, Clint Attending Unavailable Bonezzi, Stephanie M Primary Care Unavailable Arango, Apollo R Primary Care Unavailable Zumbar, Clint Admitting Unavailable Zumbar, Clint Attending Unavailable BonezzStephanie lópez M Primary Care Unavailable Zumbar, Clint Admitting Unavailable Zumbar, Clint Attending Unavailable Bonezzi, Stephanie M Primary Care Unavailable Zumbar, Clint Admitting Unavailable Zumbar, Clint Attending Unavailable Changumbar, Clint Referring Unavailable Stephanie Fuchs Primary Care Unavailable Zumbar, Clint Admitting Unavailable Zumbar, Clint Attending Unavailable Stephanie Fuchs Primary Care Unavailable Zumbar, Clint Admitting Unavailable Zumbar, Clint Attending Unavailable Stephanie Fuchs Primary Care Unavailable Zumbar, Clint Admitting Unavailable Zumbar, Clint Attending Unavailable Stephanie Fuchs Primary Care Unavailable Jef HANEY, Stephanie Doshi Attending Unavailable Stephanie Fuchs MD Referring Unavailable Jef HANEY, Stephanie Doshi Consulting Unavailable Purpose Purpose PROBLEMS PROBLEMS DATE TYPE CONDITION / CODE ATTENDING STATUS SOURCE 04/04/2018 Unknown M43.6 - Torticollis Brandt, Vinny Chi Active Saw / M43.6(ICD-10) [facility] Repository 04/04/2018 Unknown R53.81 - Other Brandt, Vinny Chi Active [facility] malaise / [facility] R53.81(ICD-10) Hospital Repository 03/24/2018 Unknown 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, 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, Repository cervical region / M47.812(ICD-10) 03/24/2018 Unknown R51 - Headache / Tereletsky, Active [place] R51(ICD-10) [facility] Repository 02/05/2018 Unknown Z95.0 - Presence of Destinee Jaime Active [facility] cardiac pacemaker / Community Z95.0(ICD-10) Hospital Repository 02/05/2018 Unknown I25.5 - Ischemic YeniDestinee freedman Active Saw cardiomyopathy / Community I25.5(ICD-10) Hospital Repository 02/05/2018 Unknown I48.91 - Unspecified YeniDestinee freedman Active [facility] atrial fibrillation [facility] / I48.91(ICD-10) Hospital Repository 01/27/2018 Unknown M54.5 - Low back Tereletsky, Active [place] pain / M54.5(ICD-10) [facility] Repository 02/12/2018 Unknown I49.5 - Sick sinus Susanne, Clint Active Saw syndrome / Community I49.5(ICD-10) Hospital Repository 02/14/2018 Unknown 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 [facility] pulmonary disease, Hospital unspecified / Repository J44.9(ICD-10) 10/25/2017 Unknown M25.569 - Pain in Apollo Arango Active [facility] unspecified knee / Community M25.569(ICD-10) Hospital Repository 09/14/2017 Unknown R06.02 - Shortness Hamilton, Active Saw of breath / [facility] R06.02(ICD-10) Hospital Repository 09/02/2017 Unknown R05 - Cough / Hamilton, Active Saw R05(ICD-10) [facility] Repository 06/25/2017 Unknown Z87.442 - Personal JusticeHarrison Active [place] history of urinary Harley [facility] calculi / Hospital Z87.442(ICD-10) Repository 04/22/2017 Unknown J69.0 - Pneumonitis JlHowie luz Active [facility] due to inhalation of [facility] food and vomit / Hospital J69.0(ICD-10) Repository PROCEDURES PROCEDURES No Procedure Records FoundVITAL SIGNS VITAL SIGNS No Vital Signs Records FoundRESULTS RESULTS CHEST 1 VIEW Observed: 04/02/2018 Status: F Source: SAW (PORTABLE) 8:59 PM [facility] HOSPITAL REPOSITORY [facility] Imaging Services [address] [place] [address] Chest 1 View (Portable) MR#: [id number] Acct: [id number] Name: HUNTER HENDRICKSON Jr. Rep #: [id number] : 1940 M 77 From: Jose Miguel Aranda MD PCP: Stephanie Fuchs MD Status: ADM IN Study: Chest 1 View (Portable) Date of Exam: 04/02/18 Exam# [id number] Ordering Dr: Vinny Carlton MD STUDY: X-RAY CHEST REASON FOR EXAM: Male, 77 years old. Cough TECHNIQUE: Single frontal view of the chest. COMPARISON: March 20, 2018 FINDINGS: Dual-chamber pacemaker on the left. Chronic interstitial lung changes without superimposed acute alveolar disease. There is no demonstrated pleural abnormality. Normal size heart. Normal mediastinum and elis. Normal visualized pulmonary arteries. Normal visualized aortic arch and descending thoracic aorta. Normal visualized thoracic spine. Normal visualized ribs, clavicles, and shoulders. There is no demonstrated abnormality of the visualized soft tissue structures of the upper abdomen. RAD/Chest 1 View (Portable) IMPRESSION: Chronic interstitial lung changes without superimposed acute alveolar disease. Electronically Signed: Jose Miguel Aranda MD at 23:49 EST Tel , Service support , CC: Stephanie Fuchs MD; Vinny Carlton MD Mold Filler: Signed HOME HEALTH PROGRESS Observed: 03/30/2018 Status: F Source: [place] NOTE 6:08 PM [facility] REPOSITORY [facility] Medical Records Department [address] [place] [id number] Home Health Progress Note Hyoy-kh-Cilx Encounter Encounter Date: 03/30/181806 MR#: [id number] Acct: [id number] Name: HUNTER HENDRICKSON Jr. Rep #: [id number] : 1940 77 From: Vinny Carlton MD PCP: Stephanie Fuchs MD Status: ADM IN Location: [place] [address] Home Health Note - Plan Overview of reason of hospitalization: The patient is a 77 year old Male with below past medical history hospitalized for intractable headache, ruled out for meningitis, pain controlled with steroids, narcotics, muscle relaxants, admitted to TCU with debility, here for rehabilitation, strengthening, prior to disposition determination. On TCU, he developed thrush, will discharge with Nystatin swish and swallow. Discharge home with spouse, and Home Health Services. Problems: Patient was seen for (Last Updated 03/21/18 @ 18:31 by Modesto Mclaughlin DO) Headache (Acute) Neck pain (Acute) Shoulder pain (Acute) BPH (benign prostatic hyperplasia) (Chronic) Depression (Chronic) Peripheral arterial occlusive disease (Chronic) Alzheimer's disease (Chronic) Neuropathic pain (Chronic) Complete List of Medical Problems (Last Updated 03/21/18 @ 18:31 by Modesto Mclaughlin DO) Degenerative joint disease involving multiple joints (Chronic) Paroxysmal atrial fibrillation (Chronic) Headache (Acute) Neck pain (Acute) Shoulder pain (Acute) BPH (benign prostatic hyperplasia) (Chronic) Depression (Chronic) Peripheral arterial occlusive disease (Chronic) Alzheimer's disease (Chronic) Neuropathic pain (Chronic) Intractable headache (Acute) Neck stiffness (Acute) CHF (congestive heart failure) (Chronic) COPD (chronic obstructive pulmonary disease) (Chronic) Pulmonary hypertension (Chronic) Tobacco abuse (Chronic) AAA (abdominal aortic aneurysm) (Chronic) PVD (peripheral vascular disease) (Chronic) Long-term use of high-risk medication (Chronic) Stage 2 moderate COPD by GOLD classification (Chronic) Malaise and fatigue (Chronic) ARLENE (obstructive sleep apnea) (Chronic) Central sleep apnea (Chronic) S/P PTCA (percutaneous transluminal coronary angioplasty) (Chronic) Cardiomyopathy (Chronic) SSS (sick sinus syndrome) (Chronic) Autonomic dysfunction (Chronic) HLD (hyperlipidemia) (Chronic) PAD (peripheral artery disease) (Chronic) Community acquired pneumonia (Chronic) Coronary artery disease (Chronic) BPH (benign prostatic hypertrophy) with urinary obstruction (Chronic) Depressive disorder (Chronic) HTN (hypertension) (Chronic) Atrial fibrillation (Chronic) GERD (gastroesophageal reflux disease) (Chronic) History of orchiectomy, unilateral (Chronic) Pacemaker (Chronic) Nephrolithiasis (Chronic) Personality disorder (Chronic) - Requirements and Reasons Disciplines Needed/Ordered: Physical Therapy Reason for Disciplines: Gait Training, Stair Training, Fall Prevention, Home Safety/Equipment Instruction, Balance and/or Posture Training, Transfer Training Related To: Physical Impairments, Unsteady Gait/Balance, Fall Risk Patient is unable to leave the home: Without Aid of Supportive Devices (crutches, cane, wheelchair, walker), Without the assistance of another person - Additional Disciplines Additional Disciplines Needed/Ordered: Occupational Therapy 03/30/18 7107 <Electronically signed by Vinny Carlton MD> Date Vinny Carlton MD Cosigner Signature (if indicated): Date CC: Signed DISCHARGE SUMMARY Observed: 03/30/2018 Status: F Source: [place] 6:07 PM [facility] [place] REPOSITORY [facility] Medical Records Department [address] [place] [address] Discharge Summary 03/30/18 1806 MR#: [id number] Acct: [id number] Name: HUNTER HENDRICKSON . Rep #: [id number] : 1940 77 From: Vinny Carlton MD PCP: Stephanie Fuchs MD Status: ADM IN Location: [place] [address] Discharge Date and Diagnosis - Problem List Patient Problems: Active and Suspected Problems (Last Updated 03/21/18 @ 18:31 by Modesto Mclaughlin DO) Headache (Acute) Neck pain (Acute) Shoulder pain (Acute) Date of Admission: 03/22/18 Date of Discharge: 04/03/18 - Primary Discharge Diagnosis Active and Suspected Problems (Last Updated 03/21/18 @ 18:31 by Modesto Mclaughlin DO) Headache (Acute) Neck pain (Acute) Shoulder pain (Acute) - Secondary Discharge Diagnosis Chronic Problems (Last Updated 03/21/18 @ 18:31 by Modesto Mclaughlin DO) Degenerative joint disease involving multiple joints (Chronic) Paroxysmal atrial fibrillation (Chronic) BPH (benign prostatic hyperplasia) (Chronic) Depression (Chronic) Peripheral arterial occlusive disease (Chronic) Alzheimer's disease (Chronic) Neuropathic pain (Chronic) CHF (congestive heart failure) (Chronic) diastolic COPD (chronic obstructive pulmonary disease) (Chronic) Pulmonary hypertension (Chronic) Tobacco abuse (Chronic) AAA (abdominal aortic aneurysm) (Chronic) PVD (peripheral vascular disease) (Chronic) Long-term use of high-risk medication (Chronic) Stage 2 moderate COPD by GOLD classification (Chronic) Malaise and fatigue (Chronic) ARLENE (obstructive sleep apnea) (Chronic) Central sleep apnea (Chronic) S/P PTCA (percutaneous transluminal coronary angioplasty) (Chronic) Cardiomyopathy (Chronic) SSS (sick sinus syndrome) (Chronic) Autonomic dysfunction (Chronic) HLD (hyperlipidemia) (Chronic) PAD (peripheral artery disease) (Chronic) Community acquired pneumonia (Chronic) Coronary artery disease (Chronic) S/P LAD and LCx stenting BPH (benign prostatic hypertrophy) with urinary obstruction (Chronic) Depressive disorder (Chronic) HTN (hypertension) (Chronic) Atrial fibrillation (Chronic) GERD (gastroesophageal reflux disease) (Chronic) History of orchiectomy, unilateral (Chronic) Pacemaker (Chronic) Nephrolithiasis (Chronic) Personality disorder (Chronic) Hospital Course and Treatment Imaging Results: 03/30/18 13:48 Diet: Cardiac/Low Cholesterol Is pt able to select menu?: Yes Labs (Last 48 Hours) WBC 11.3 H RBC 4.42 L Hgb 12.2 L Hct 39.0 L MCV 88.2 MCH 27.6 MCHC 31.3 L RDW 18.8 H Operations: None Procedures: None Summary of Care Provided: The patient is a 77 year old Male with below past medical history hospitalized for intractable headache, ruled out for meningitis, pain controlled with steroids, narcotics, muscle relaxants, admitted to TCU with debility, here for rehabilitation, strengthening, prior to disposition determination. On TCU, he developed thrush, will discharge with Nystatin swish and swallow. Discharge home with spouse, and Home Health Services. Patient Problems: Active and Suspected Problems (Last Updated 03/21/18 @ 18:31 by Modesto Mclaughlin DO) Headache (Acute) Neck pain (Acute) Shoulder pain (Acute) - Physical Exam Vital Signs Temp Pulse Resp BP Pulse Ox 98.0 F 72 18 136/77 H 93 03/30/18 16:00 03/30/18 16:00 03/30/18 16:00 03/30/18 16:00 03/30/18 16:00 Oxygen Delivery Method Room Air Weight: 80.331 kg Body Mass Index (BMI) 25.4 Intake and Output for Last 24 Hours Intake Total 900 / 900 840 / 840 440 / 440 Output Total 550 / 550 Balance 350 / 350 840 / 840 440 / 440 Laboratory Tests Past 24 Hrs WBC 11.3 H RBC 4.42 L Hgb 12.2 L Hct 39.0 L MCV 88.2 MCH 27.6 MCHC 31.3 L RDW 18.8 H Discharge Diet: No Restrictions Discharge Activity: Return to Normal Activity, May Shower, Use Walker Weight Bearing Status: Weight bearing as tolerated Call your doctor if you observe: Fever of 101 or Higher, Inability to urinate, Inability to have a bowel movement, Shortness of breath, Chest pain, Uncontrolled pain Home Medications: Medications to take at Discharge Cholecalciferol (Vitamin D3) [Vitamin D3] 1 tab PO DAILY 06/18/17 Cyanocobalamin [Vitamin B12] 1 tab PO DAILY 06/18/17 Melatonin 10 mg PO QHS 06/18/17 Omeprazole 20 mg PO DAILY 06/18/17 Vit A/Vit C/Vit E/Zinc/Copper [Preservision Areds Softgel] 1 cap PO BID 06/18/17 Aspirin 81 mg PO DAILY 01/22/18 Duloxetine HCl 60 mg PO DAILY 03/16/18 Donepezil HCl [Aricept] 10 mg PO QHS 03/22/18 Pregabalin [Lyrica] 300 mg PO QHS 03/22/18 Rivaroxaban [Xarelto] 15 mg PO QPM 03/22/18 Tamsulosin HCl [Flomax] 0.4 mg PO DAILY@1730 03/22/18 Finasteride [Proscar] 5 mg PO DAILY #30 tablet 03/30/18 Menthol/Lanolin/Calamine/Znox [Calmoseptine Ointment] 1 applic TOPICAL 0600,2200 tube 03/30/18 Mineral Oil/Petrolatum,White [Eucerin] 1 applic TOPICAL 0600,2200 jar 03/30/18 Nystatin 500,000 unit PO 4X/DAY #120 udc 03/30/18 Nystatin Powder [Mycostatin Powder] 1 applic TOPICAL 0600,2200 bottle 03/30/18 Oxycodone [Oxyir] 5 mg PO Q4H PRN PRN 5 Days #30 tab 03/30/18 Polyethylene Glycol 3350 [Miralax] 17 gm PO DAILY #30 packet 03/30/18 Senna/Docusate Sodium [Senokot-S] 2 tablet PO BID #60 tablet 03/30/18 Following Prescrptions Were Given to Patient: Oxycodone [Oxyir] 5 mg PO Q4H PRN PRN 5 Days #30 tab PRN Reason: Mod-Severe Pain (4-01/26) Finasteride [Proscar] 5 mg PO DAILY #30 tablet Polyethylene Glycol 3350 [Miralax] 17 gm PO DAILY #30 packet Senna/Docusate Sodium [Senokot-S] 2 tablet PO BID #60 tablet Nystatin 500,000 unit PO 4X/DAY #120 [facility] [place] Primary Care Physician: Stephanie Fuchs MD [Primary Care Provider] - Please follow up with your Primary Care Physician in: 1 week. Disposition: Home with Home Health Minutes spent on discharge:: 35 Patient Condition:: Stable Medical Necessity - Tobacco Use Smoking Status: Current every day smoker Tobacco Use: Cigarettes Meaningful Use Info Meaningful Use Diagnoses (Choose all that apply): None applicable 03/30/181806 <Electronically signed by Vinny Carlton MD> Date Vinny Carlton MD Cosigner Signature (if applicable): Date CC: Stephanie Fuchs MD; Vinny Carlton MD Signed DISCHARGE INSTRUCTION Observed: 03/30/2018 Status: F Source: [place] 6:06 PM [facility] [place] REPOSITORY [facility] Medical Records Department [address] [place] [id number] Instructions for Home/Discharge Instructions 03/30/181804 MR#: [id number] Acct: [id number] Name: HUNTER HENDRICKSON Jr. Rep #: [id number] : 1940 77 From: Vinny Carlton MD PCP: Stephanie Fuchs MD Status: ADM IN - Discharge Diagnoses Current Active Problems: Current Active and Chronic Problems (Last Updated 03/21/18 @ 18:31 by Modesto Mclaughlin DO) Headache (Acute) Neck pain (Acute) Shoulder pain (Acute) BPH (benign prostatic hyperplasia) (Chronic) Depression (Chronic) Peripheral arterial occlusive disease (Chronic) Alzheimer's disease (Chronic) Neuropathic pain (Chronic) You will use the following diet at home:: No restrictions, Regular Your food should be the consistency of: Regular Your liquids should be the consistency of: Regular/Thin Discharge Activity: Return to Normal Activity, May Shower, Use Walker Weight Bearing Status: Weight bearing as tolerated Call your doctor if you observe: Fever of 101 or Higher, Inability to urinate, Inability to have a bowel movement, Shortness of breath, Chest pain, Uncontrolled pain Allergies/Adverse Reactions: Allergies lactose Allergy (Severe, Verified 03/16/18 11:21) unknown Penicillins Allergy (Severe, Verified 03/16/18 11:21) Anaphylaxis adhesive Allergy (Verified 03/16/18 11:21) Rash Sulfa (Sulfonamide Antibiotics) Allergy (Verified 03/16/18 11:21) Unknown diazepam [From Valium] Adverse Reaction (Verified 03/16/18 11:21) hyper opposite effect desired HYPER OPPOSITE EFFECT DESIRED niacin [From Niaspan Extended-Release] Adverse Reaction (Verified 03/16/18 11:21) low bp LOW BP simvastatin Adverse Reaction (Verified 03/16/18 11:21) Pain in joints Medications to take at Discharge Cholecalciferol (Vitamin D3) [Vitamin D3] 1 tab PO DAILY 06/18/17 Cyanocobalamin [Vitamin B12] 1 tab PO DAILY 06/18/17 Melatonin 10 mg PO QHS 06/18/17 Omeprazole 20 mg PO DAILY 06/18/17 Vit A/Vit C/Vit E/Zinc/Copper [Preservision Areds Softgel] 1 cap PO BID 06/18/17 Aspirin 81 mg PO DAILY 01/22/18 Duloxetine HCl 60 mg PO DAILY 03/16/18 Donepezil HCl [Aricept] 10 mg PO QHS 03/22/18 Pregabalin [Lyrica] 300 mg PO QHS 03/22/18 Rivaroxaban [Xarelto] 15 mg PO QPM 03/22/18 Tamsulosin HCl [Flomax] 0.4 mg PO DAILY@1730 03/22/18 Finasteride [Proscar] 5 mg PO DAILY #30 tablet 03/30/18 Menthol/Lanolin/Calamine/Znox [Calmoseptine Ointment] 1 applic TOPICAL 0600,2200 tube 03/30/18 Mineral Oil/Petrolatum,White [Eucerin] 1 applic TOPICAL 0600,2200 jar 03/30/18 Nystatin 500,000 unit PO 4X/DAY #120 udc 03/30/18 Nystatin Powder [Mycostatin Powder] 1 applic TOPICAL 0600,2200 bottle 03/30/18 Oxycodone [Oxyir] 5 mg PO Q4H PRN PRN 5 Days #30 tab 03/30/18 Polyethylene Glycol 3350 [Miralax] 17 gm PO DAILY #30 packet 03/30/18 Senna/Docusate Sodium [Senokot-S] 2 tablet PO BID #60 tablet 03/30/18 The following prescriptions were given: Oxycodone [Oxyir] 5 mg PO Q4H PRN PRN 5 Days #30 tab PRN Reason: Mod-Severe Pain (-01/26) Finasteride [Proscar] 5 mg PO DAILY #30 tablet Polyethylene Glycol 3350 [Miralax] 17 gm PO DAILY #30 packet Senna/Docusate Sodium [Senokot-S] 2 tablet PO BID #60 tablet Nystatin 500,000 unit PO 4X/DAY #120 [facility] [place] Primary Care Physician: Stephanie Fuchs MD [Primary Care Provider] - Please follow up with your Primary Care Physician in: 1 week. Test Results: Test results from this visit will be discussed in further detail at your follow-up appointment, if applicable. Proposed Discharge Date: 04/03/18 03/30/181805 <Electronically signed by Vinny Carlton MD> Date Vinny Carlton MD CC: Stephanie Fuchs MD CBC W/DIFF, AUTOMATED Collected: 03/30/2018 Status: F Source: [place] 5:15 AM [facility] [place] REPOSITORY TYPE CODE TESTS RESULT OUT OF RANGE REFERENCE UNITS LAB L100.1000 4.4-11.0 K/mm3 High WBC 11.3 LAB L100.1200 4.6-6.2 M/mm3 Low RBC 4.42 LAB L100.1300 13.0-16.5 g/dl Low HGB 12.2 LAB L100.1400 40-54 % Low HCT 39.0 LAB L100.1500 80-94 fL Normal MCV 88.2 LAB L100.1600 27.0-32.0 pg Normal MCH 27.6 LAB L100.1700 32-36 g/gl Low MCHC 31.3 LAB L100.1810 11.6-14.6 % High RDW CV 18.8 LAB L100.1820 35.1-43.9 fl High RDW SD 58.8 LAB L100.1900 150-450 K/mm3 Normal PLT 305 LAB L100.2000 6.2-12.0 fl Normal MPV 10.0 LAB L100.2100 47-70 % Normal NEUT% 65.9 LAB L100.2200 19-41 % Normal LY% 25.2 LAB L100.2300 0-10 % Normal MONO% 7.2 LAB L100.2400 0-5 % Normal EO% 0.4 LAB L100.2500 0-1 % Normal BASO% 0.2 LAB L100.2550 0.0-0.9 % High IM GRAN % 1.100 Result Comment: IG% - Immature Granulocytes (promyelocytes, myelocytes and metamyelocytes) > 1% indicates that a LEFT SHIFT is Present. LAB L100.2620 2.0-7.7 X10 3/uL Normal Absolute Neut 7.5 LAB L100.2720 0.83-4.51 X10 3/ul Normal Absolute Lymph 2.85 Performed By: #### L100.0100 #### [facility] [address] [place], [address] BASIC METABOLIC Collected: 03/30/2018 Status: F Source: [place] PROFILE ([facility]) 5:15 AM [facility] [place] REPOSITORY TYPE CODE TESTS RESULT OUT OF RANGE REFERENCE UNITS LAB L501.0100 74-106 mg/dL Low GLU 68 Result Comment: Please note revised GLUCOSE reference range effective 2017. LAB L501.1000 7-18 mg/dL High BUN 30 LAB L501.1100 0.70-1.30 mg/dL Normal CREAT,SERUM 1.12 Result Comment: The validity of the calculated GFR AND GFRAA in patients over 70 years has not been determined. Clinical correlation is essential. LAB L501.1110 >60 mL/min Normal EST GFR 67 Result Comment: Non- GFR Calc LAB L501.1115 >60 mL/min Normal EST GFR - AA 81 Result Comment: GFR Calc LAB L501.1255 ml/min Normal Estimated CRCL 55.22 LAB L501.1300 10-20 RATIO High BUN/CRE 26.8 LAB L501.2200 8.5-10 mg/dL Low .1 CA 8.3 LAB L501.5300 136-14 mmol/L Normal 5 NA 145 LAB L501.5600 3.5-5. mmol/L Normal 1 K 3.8 LAB L501.5900 98-107 mmol/L High CL 108 LAB L501.6100 21.0-3 mmol/L Normal 2.0 CO2 27.0 LAB L501.6200 5-15 Normal GAP 10 Performed By: #### L500.2500 #### [facility] [address] [place], [place], [address] BEDSIDE GLUCOSE Collected: 03/28/2018 Status: F Source: [place] 9:49 AM [facility] [place] REPOSITORY TYPE CODE TESTS RESULT OUT OF REFERENCE UNITS RANGE LAB L501.080 70-110 mg/dL High BEDSIDE GLU 116 Result Comment: MANAGEMENT OF PATIENT CARE PER NURSING PROTOCOL Performed By: #### L501.080 #### [facility] Point of Care [address] [place], [place] [address] DISCHARGE SUMMARY Observed: 03/24/2018 Status: F Source: [place] 9:38 AM [facility] [place] REPOSITORY [facility] Medical Records Department [address] [place] [address] Discharge Summary 03/24/18 0931 MR#: [id number] Acct: [id number] Name: HUNTER HENDRICKSON Jr. Rep #: [id number] : 1940 77 From: Modesto Mclaughlin DO PCP: Stephanie Fuchs MD Status: DIS IN Y Location: [place]3 [id number] Discharge Date and Diagnosis - Problem List Patient Problems: Active and Suspected Problems (Last Updated 03/21/18 @ 18:31 by Modesto Mclaughlin DO) Headache (Acute) Neck pain (Acute) Shoulder pain (Acute) Date of Admission: 03/16/18 Date of Discharge: 03/22/18 - Primary Discharge Diagnosis Active and Suspected Problems (Last Updated 03/21/18 @ 18:31 by Modesto Mclaughlin DO) #1 generalized cephalgia-etiology unclear, possibly secondary to severe degenerative joint disease of the cervical spine #2 urinary retention secondary to BPH #3 underlying atrial fibrillation-probably in paced rhythm #4 generalized osteoarthritis #5 chronic obstructive pulmonary disease #6 obstructive sleep apnea #7 hypertension #8 BPH #9 right lower lobe infiltrate secondary to atelectasis #10 multilevel degenerative disc disease of the cervical spine - Secondary Discharge Diagnosis Chronic Problems (Last Updated 03/21/18 @ 18:31 by Modesto Mclaughlin DO) Degenerative joint disease involving multiple joints (Chronic) Paroxysmal atrial fibrillation (Chronic) BPH (benign prostatic hyperplasia) (Chronic) Depression (Chronic) Peripheral arterial occlusive disease (Chronic) Alzheimer's disease (Chronic) Neuropathic pain (Chronic) CHF (congestive heart failure) (Chronic) diastolic COPD (chronic obstructive pulmonary disease) (Chronic) Pulmonary hypertension (Chronic) Tobacco abuse (Chronic) AAA (abdominal aortic aneurysm) (Chronic) PVD (peripheral vascular disease) (Chronic) Long-term use of high-risk medication (Chronic) Stage 2 moderate COPD by GOLD classification (Chronic) Malaise and fatigue (Chronic) ARLENE (obstructive sleep apnea) (Chronic) Central sleep apnea (Chronic) S/P PTCA (percutaneous transluminal coronary angioplasty) (Chronic) Cardiomyopathy (Chronic) SSS (sick sinus syndrome) (Chronic) Autonomic dysfunction (Chronic) HLD (hyperlipidemia) (Chronic) PAD (peripheral artery disease) (Chronic) Community acquired pneumonia (Chronic) Coronary artery disease (Chronic) S/P LAD and LCx stenting BPH (benign prostatic hypertrophy) with urinary obstruction (Chronic) Depressive disorder (Chronic) HTN (hypertension) (Chronic) Atrial fibrillation (Chronic) GERD (gastroesophageal reflux disease) (Chronic) History of orchiectomy, unilateral (Chronic) Pacemaker (Chronic) Nephrolithiasis (Chronic) Personality disorder (Chronic) Hospital Course and Treatment Operations: None Procedures: - - Lumbar puncture Summary of Care Provided: The patient is a 77 year old M who was seen in the emergency room at [facility] with chief complaint of neck pain, shoulder pain, and headache. Patient denied any recent injury. Workup in the emergency room included CBC and Menard panel which were unremarkable, chest x-ray showed what appeared to be atelectasis in the right lung base, he was given IV analgesics, CT of the brain was performed and showed no acute abnormalities. CT of the cervical spine was also performed which showed degenerative disc disease of the cervical spine. Lumbar puncture was not performed in the emergency room due to the fact the patient was on Xarelto. Patient was admitted to the hospitalist service on MedSurg 3, his Xarelto was held, and he was given analgesics for his cephalgia and underwent a lumbar puncture which was not abnormal and the culture of the lumbar fluid did not grow out any organisms. Patient was seen by PT and OT, it was felt he would benefit from detention placement for short period of time for ongoing rehab. Patient had to have a Chambers catheter inserted for urinary retention. Patient's chest x-ray was repeated and showed again a right lower lobe abnormality which was felt by this examiner to be secondary to atelectasis, patient had briefly been put on antibiotics in the hospital but 80s antibiotics were stopped. Patient was placed on IV corticosteroids and then transition to oral prednisone, this helped his neck pain and headache greatly and also his right shoulder stiffness. On 03/22/18, patient was seen and examined: On examination he appeared in good health and spirits. Vital signs as documented. Skin warm and dry and without overt rashes. Neck without JVD. Lungs clear. Heart exam notable for regular rhythm, normal sounds and absence of murmurs, rubs or gallops. Abdomen unremarkable and without evidence of organomegaly, masses, or abdominal aortic enlargement. Extremities nonedematous. Neuro: Cranial nerves II through XII are grossly intact, no focal motor deficits were noted. Psych: Patient was alert and oriented x3, he did not appear anxious or depressed. 03/22/18, patient was seen and examined and felt to be stable for transfer to a detention facility for further care. Patient Problems: Active and Suspected Problems (Last Updated 03/21/18 @ 18:31 by Modesto Mclaughlin DO) Headache (Acute) Neck pain (Acute) Shoulder pain (Acute) - Physical Exam Vital Signs Temp Pulse Resp BP Pulse Ox 98.7 F 80 18 93/62 93 03/22/18 17:00 03/22/18 17:00 03/22/18 17:00 03/22/18 17:00 03/22/18 17:00 Oxygen Flow Rate (L/min) [2] 4 Oxygen Flow Rate (L/min) [1 ( 4 Initial Baseline)] Oxygen Flow Rate (L/min) 2 Oxygen Delivery Method [2] Nasal Cannula Oxygen Delivery Method [1 ( Nasal Cannula Initial Baseline)] Oxygen Delivery Method Room Air Weight: 79.379 kg Body Mass Index (BMI) 25.1 Intake and Output for Last 24 Hours Intake Total 1290 / 1290 Output Total 650 / 650 Balance 640 / 640 Microbiology Past 72 Hours 03/18/18 09:23 Gram Stain - Final Csf, Spinal Fluid CSF Culture - Final Home Medications: Medications to take at Discharge Cholecalciferol (Vitamin D3) [Vitamin D3] 1 tab PO DAILY 06/18/17 Cyanocobalamin [Vitamin B12] 1 tab PO DAILY 06/18/17 Melatonin 10 mg PO QHS 06/18/17 Omeprazole 20 mg PO DAILY 06/18/17 Vit A/Vit C/Vit E/Zinc/Copper [Preservision Areds Softgel] 1 cap PO BID 06/18/17 Aspirin 81 mg PO DAILY 01/22/18 Duloxetine HCl 60 mg PO DAILY 03/16/18 Acetaminophen [Tylenol Tablet] 650 mg PO Q6H PRN PRN tablet 03/22/18 Donepezil HCl [Aricept] 10 mg PO QHS 03/22/18 Finasteride [Proscar] 5 mg PO DAILY 03/22/18 Oxycodone [Oxyir] 5 mg PO Q4H PRN PRN 7 Days #30 tab 03/22/18 Prednisone [Deltasone] 20 mg PO UD 03/22/18 Pregabalin [Lyrica] 300 mg PO QHS 03/22/18 Rivaroxaban [Xarelto] 15 mg PO QPM 03/22/18 Tamsulosin HCl [Flomax] 0.4 mg PO DAILY@1730 03/22/18 Following Prescrptions Were Given to Patient: Oxycodone [Oxyir] 5 mg PO Q4H PRN PRN 7 Days #30 tab PRN Reason: Mod-Severe Pain (4-01/26) Primary Care Physician: Stephanie Fuchs MD [Primary Care Provider] - Disposition: Intermediate facility Minutes spent on discharge:: 32 Patient Condition:: Stable Medical Necessity - Tobacco Use Smoking Status: Current every day smoker Tobacco Use: Cigarettes Meaningful Use Info Meaningful Use Diagnoses (Choose all that apply): None applicable Code Visit Inpatient E AND M: [id number] Disch Hosp 03/24/18 0938 <Electronically signed by Modesto Mclaughlin DO> Date Modesto Mclaughlin DO Cosigner Signature (if applicable): Date CC: Stephanie Fuchs MD; Modesto Mclaughlin DO Signed URINALYSIS, COMPLETE Collected: 03/23/2018 Status: F Source: [place] 11:40 PM [facility] [place] REPOSITORY Order Comment: Order Date: 03/23/18 How was Urine Obtained? CATHETER SPECIMEN TYPE CODE TESTS RESULT OUT OF RANGE REFERENCE UNITS LAB L400.3000 Yellow COLOR Normal Yellow LAB L400.3050 Clear Normal CLARITY Cloudy LAB L400.3200 Normal mg/dl Normal GLUCOSE, UR Normal LAB L400.3300 Negative mg/dL Normal BILIRUBIN URINE Negative LAB L400.3400 Negative mg/dl Normal KETONE UR Negative LAB L400.3465 1.002-1.030 Normal SP.GR. DIPSTX 1.015 LAB L400.3550 5.0 - 8.0 pH UR Normal 5.0 LAB L400.3600 Negative mg/dl High PROT 30 DIPSTX LAB L400.3700 Normal mg/dl Normal UROBILI Normal LAB L400.3750 Negative Normal NITRITE UR Negative LAB L400.3780 Negative /ul High OCCULT BLOOD-UR 250 LAB L400.3800 Negative /ul High LEUK ESTERASE 100 LAB L400.4050 0-5 /hpf WBC Normal 0-5 SEEN LAB L400.4100 0-5 /hpf > Normal RBC-UA 100 SEEN LAB L400.4150 0-5 /hpf SQUAM 0 Normal EPI SEEN LAB L400.4300 None Seen /hpf 0 Normal BACTERIA SEEN LAB L400.4350 <or=2+ /hpf 0 Normal MUCUS, URINE SEEN Performed By: #### L400.0001 #### [facility] [address] [place], [address] HISTORY AND PHYSICAL Observed: 03/23/2018 Status: F Source: [place] EXAM 8:21 AM [facility] [place] REPOSITORY [facility] Medical Records Department [address] [place] [address] History and Physical 03/22/182020 MR#: [id number] Acct: [id number] Name: HUNTER HENDRICKSON Jr. Rep #: [id number] : 1940 77 From: Vinny Carlton MD PCP: Stephanie Fuchs MD Status: ADM IN Location: [place] [address] Problem List (1) Headache Status: Acute (2) Neck pain Status: Acute (3) Shoulder pain Status: Acute (4) BPH (benign prostatic hyperplasia) Status: Chronic (5) Depression Status: Chronic (6) Peripheral arterial occlusive disease Status: Chronic (7) Alzheimer's disease Status: Chronic (8) Neuropathic pain Status: Chronic (9) CHF (congestive heart failure) Status: Chronic Qualifiers: Comment: diastolic (10) COPD (chronic obstructive pulmonary disease) Status: Chronic Qualifiers: (11) Pulmonary hypertension Status: Chronic (12) ARLENE (obstructive sleep apnea) Status: Chronic (13) SSS (sick sinus syndrome) Status: Chronic (14) HLD (hyperlipidemia) Status: Chronic Qualifiers: (15) Coronary artery disease Status: Chronic Qualifiers: Comment: S/P LAD and LCx stenting (16) HTN (hypertension) Status: Chronic Qualifiers: (17) Atrial fibrillation Status: Chronic Qualifiers: (18) GERD (gastroesophageal reflux disease) Status: Chronic (19) Personality disorder Status: Chronic History of Present Illness Date of Admission: 03/22/18 Chief Complaint: Here for rehabilitation, strengthening, prior to discharge home with spouse. The patient is a 77 year old Male with below past medical history presented to [facility] Emergency Department 03/16/2018 with back pain. For 2-3 days, gradual, head, neck, shoulders, trapezius. Labs okay. Chest X-ray right base atelectasis versus infiltrate, pneumonia doubtful. Morphine given for pain. Unable to perform LP immediately due to patient on Xarelto. 03/16/2018 Admit to Hospital. Vancomycin, Rocephin, Aztreonam for meningitis coverage. Narcotics, Flexeril, for neck pain. Hold Xarelto in preparation for LP. 03/18/2018 LP performed under fluoroscopic guidance. 03/19/2018 Suicidal Ideation, but only joking. If CSF cultures negative, stop all antibiotics. CSF cultures negative, all antibiotics stopped. Prednisone, narcotics, PT/OT for headache. Indwelling Chambers catheter for urinary retention. Of note, patient recently in [facility] facility and signed himself out prior to finishing therapy. Spouse unable to care for him at home. Patient agreed to PT/OT. 03/22/2018 Admit to TCU with debility, here for rehabilitation, strengthening, prior to disposition determination. 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) Paroxysmal atrial fibrillation (Chronic) BPH (benign prostatic hyperplasia) (Chronic) Depression (Chronic) Peripheral arterial occlusive disease (Chronic) Alzheimer's disease (Chronic) Neuropathic pain (Chronic) CHF (congestive heart failure) (Chronic) diastolic COPD (chronic obstructive pulmonary disease) (Chronic) Pulmonary hypertension (Chronic) Tobacco abuse (Chronic) AAA (abdominal aortic aneurysm) (Chronic) PVD (peripheral vascular disease) (Chronic) Long-term use of high-risk medication (Chronic) Stage 2 moderate COPD by GOLD classification (Chronic) Malaise and fatigue (Chronic) ARLENE (obstructive sleep apnea) (Chronic) Central sleep apnea (Chronic) S/P PTCA (percutaneous transluminal coronary angioplasty) (Chronic) Cardiomyopathy (Chronic) SSS (sick sinus syndrome) (Chronic) Autonomic dysfunction (Chronic) HLD (hyperlipidemia) (Chronic) PAD (peripheral artery disease) (Chronic) Community acquired pneumonia (Chronic) Coronary artery disease (Chronic) S/P LAD and LCx stenting BPH (benign prostatic hypertrophy) with urinary obstruction (Chronic) Depressive disorder (Chronic) HTN (hypertension) (Chronic) Atrial fibrillation (Chronic) GERD (gastroesophageal reflux disease) (Chronic) History of orchiectomy, unilateral (Chronic) Pacemaker (Chronic) Nephrolithiasis (Chronic) Personality disorder (Chronic) Medical History: Medical History (Last Updated 03/21/18 @ 18:31 by Modesto Mclaughlin DO) Fever (Resolved) R50.9 CHF (congestive heart failure) (Chronic) I50.9 diastolic COPD (chronic obstructive pulmonary disease) (Chronic) J44.9 Pulmonary hypertension (Chronic) I27.20 Intractable low back pain (Resolved) M54.5 Shortness of breath (Resolved) R06.02 Aspiration pneumonia (Resolved) J69.0 Tobacco abuse (Chronic) Z72.0 AAA (abdominal aortic aneurysm) (Chronic) I71.4 PVD (peripheral vascular disease) (Chronic) I73.9 Palpitations (Resolved) R00.2 Long-term use of high-risk medication (Chronic) Z79.899 Dizziness and giddiness (Resolved) R42 Syncope (Resolved) R55 Cough (Resolved) R05 Dyspnea (Resolved) R06.00 Bronchitis (Resolved) J40 Stage 2 moderate COPD by GOLD classification (Chronic) J44.9 Acute respiratory failure with hypoxia (Resolved) J96.01 Malaise and fatigue (Chronic) R53.81, R53.83 ARLENE (obstructive sleep apnea) (Chronic) G47.33 Central sleep apnea (Chronic) G47.31 Respiratory failure with hypoxia (Resolved) J96.91 Unstable angina (Resolved) Chest pain (Resolved) R07.9 Cardiomyopathy (Chronic) I42.9 SSS (sick sinus syndrome) (Chronic) I49.5 Autonomic dysfunction (Chronic) G90.9 HLD (hyperlipidemia) (Chronic) E78.5 PAD (peripheral artery disease) (Chronic) I73.9 Acute kidney injury (Resolved) N17.9 Sepsis (Resolved) A41.9 Community acquired pneumonia (Chronic) J18.9 Coronary artery disease (Chronic) I25.10 S/P LAD and LCx stenting BPH (benign prostatic hypertrophy) with urinary obstruction (Chronic) N40.1, N13.8 Depressive disorder (Chronic) F32.9 HTN (hypertension) (Chronic) I10 Atrial fibrillation (Chronic) I48.91 GERD (gastroesophageal reflux disease) (Chronic) K21.9 Pacemaker (Chronic) Z95.0 Nephrolithiasis (Chronic) Personality disorder (Chronic) F60.9 Allergies lactose Allergy (Severe, Verified 03/16/18 11:21) unknown Penicillins Allergy (Severe, Verified 03/16/18 11:21) Anaphylaxis adhesive Allergy (Verified 03/16/18 11:21) Rash Sulfa (Sulfonamide Antibiotics) Allergy (Verified 03/16/18 11:21) Unknown diazepam [From Valium] Adverse Reaction (Verified 11/28/18 11:21) hyper opposite effect desired HYPER OPPOSITE EFFECT DESIRED niacin [From Niaspan Extended-Release] Adverse Reaction (Verified 03/16/18 11:21) low bp LOW BP simvastatin Adverse Reaction (Verified 03/16/18 11:21) Pain in joints Home Medications: Ambulatory Orders Medication Instructions Recorded Surgical History: Surgical History (Last Reviewed 03/16/18 @ 17:27 by Olvin Chopra DO) S/P TURP (status post transurethral resection of prostate) (Resolved) Z90.79 pacemaker implantation (Resolved) generator change History of inguinal hernia repair (Resolved) Z98.890, Z87.19 History of hemorrhoidectomy (Resolved) Z98.890 History of prostatectomy (Resolved) Z98.890, Z90.79 right ochiectomy (Resolved) History of appendectomy (Resolved) Z98.890, Z90.49 S/P PTCA (percutaneous transluminal coronary angioplasty) (Chronic) Z98.61 History of orchiectomy, unilateral (Chronic) Z90.79 Surgical History: angioplasty, appendectomy, cholecystectomy, herniorrhaphy, pacemaker implantation, TURP, - - Prostatectomy. Psychiatric History: Depression, - - Personality disorder. Lives: Spouse/ Significant Other Smoking Status: Current every day smoker Tobacco Use: Cigarettes Alcohol: None Drugs: None - *Family History Paternal Family History: Family History (Last Reviewed 03/16/18 @ 17:27 by Olvin Chopra DO) Father CAD (coronary artery disease) Mother Breast cancer Arthritis CAD (coronary artery disease) Hypertension Sister CVA (cerebral vascular accident) Diabetes Hypertension Son CAD (coronary artery disease) Hypertension History Items: Heart Disease, Renal Disease Sibling Family History: Family History (Last Reviewed 03/16/18 @ 17:27 by Olvin Chopra DO) Father CAD (coronary artery disease) Mother Breast cancer Arthritis CAD (coronary artery disease) Hypertension Sister CVA (cerebral vascular accident) Diabetes Hypertension Son CAD (coronary artery disease) Hypertension History Items: Diabetes, Heart Disease Offspring Family History: Family History (Last Reviewed 03/16/18 @ 17:27 by Olvin Chopra DO) Father CAD (coronary artery disease) Mother Breast cancer Arthritis CAD (coronary artery disease) Hypertension Sister CVA (cerebral vascular accident) Diabetes Hypertension Son CAD (coronary artery disease) Hypertension History Items: Heart Disease Maternal Family History: Family History (Last Reviewed 03/16/18 @ 17:27 by Olvin Chopra DO) Father CAD (coronary artery disease) Mother Breast cancer Arthritis CAD (coronary artery disease) Hypertension Sister CVA (cerebral vascular accident) Diabetes Hypertension Son CAD (coronary artery disease) Hypertension History Items: Cancer, Heart Disease Review of Systems Constitutional: Denies: Chills, Fever, Weight Change HEENT: Denies: Head Aches, Sinus Congestion, Sinus Drainage Cardiovascular: Denies: Chest Pain, Palpitations Respiratory: Denies: Cough, Shortness of breath at rest, Sputum production Gastrointestinal: Denies: Abdominal Pain, Nausea, Vomiting Genitourinary: Denies: Dysuria Musculoskeletal: Denies: Joint Pain, Joint Tenderness Skin: Denies: Rash, Wounds Neurological: Denies: Numbness, Tingling, Focal weakness Psychiatric: Denies: Anxiety, Depression, Homicidal Ideations, Suicidal Ideations Hematologic/ Lymphatic: Denies: Easy Bruising, Easy Bleeding VTE Information - Inpt Only VTE Present on Admission: No VTE Mechan Device Prophylaxis: Knee High NICK Hose VTE Pharm Prophylaxis ordered?: No Reason prophylaxis not ordered:: Treatment Not Indicated Patient Problems: Active and Suspected Problems (Last Updated 03/21/18 @ 18:31 by Modesto Mclaughlin DO) Headache (Acute) Neck pain (Acute) Shoulder pain (Acute) - Physical Exam General: Alert, Oriented x3, Cooperative HEENT: Atraumatic, PERRLA, EOMI, Normocephalic Neck: Supple, No JVD, Negative Carotid Bruits Lungs: Clear to auscultation, Normal air movement Cardiovascular: Regular rate, No murmurs Abdomen: Bowel Sounds Present, Soft, Non Tender, - - Indwelling Chambers Catheter. Extremities: No edema, Capillary Refill Less than 3 Seconds Skin: No rashes, No breakdown Musculoskeletal: No Tenderness to Palpation of Joints or Extremities Neurological: Cranial nerves II-XII grossly intact Psych/Mental Status: Normal Affect, Appropriate Body Mass Index (BMI) 25.1 Assessment/Plan All Active Problems (Last Updated 03/21/18 @ 18:31 by Modesto Mclaughlin DO) Headache (Acute) Neck pain (Acute) Shoulder pain (Acute) Intractable headache (Acute) Neck stiffness (Acute) Fever (Resolved) Intractable low back pain (Resolved) Shortness of breath (Resolved) Aspiration pneumonia (Resolved) S/P TURP (status post transurethral resection of prostate) (Resolved) pacemaker implantation (Resolved) History of inguinal hernia repair (Resolved) History of hemorrhoidectomy (Resolved) History of prostatectomy (Resolved) right ochiectomy (Resolved) History of appendectomy (Resolved) Palpitations (Resolved) Dizziness and giddiness (Resolved) Syncope (Resolved) Cough (Resolved) Dyspnea (Resolved) Bronchitis (Resolved) Acute respiratory failure with hypoxia (Resolved) Respiratory failure with hypoxia (Resolved) Unstable angina (Resolved) Chest pain (Resolved) Acute kidney injury (Resolved) Sepsis (Resolved) 77 year old male with below past medical history hospitalized for intractable headache, ruled out for meningitis, pain controlled with steroids, narcotics, muscle relaxants, admitted to TCU with debility, here for rehabilitation, strengthening, prior to disposition determination. * Debility - PT/OT. * Pain - Tylenol 1000MG Q6H PRN mild pain, Oxycodone 5MG Q4H PRN moderate to severe pain, Prednisone taper. * Bowel - Miralax 17GM daily, Senna/colace 2 tablets BID, Dulcolax 10MG PO daily PRN. * Pneumonia vaccination - Administer Prevnar 13 and/or Pneumovax 23 as necessary. * DVT prophylaxis - Not necessary, already on Xarelto. * Coronary Artery Disease - Aspirin 81MG daily. * Vitamin D deficiency - D3 1000IU daily. * Vitamin B12 deficiency - B12 500MCG daily. * Alzheimer's Disease - Donepezil 10MG QHS. * Depression - Duloxetine 60MG daily. * BPH/Urinary retention - Tamsulosin 0.4MG daily, Finasteride 5MG daily, indwelling chambers catheter, voiding trials per protocol. * Insomnia - Melatonin 10MG QHS. * Macular Degeneration - Healthy Eyes 1 tablet BID. * GERD - Pantoprazole 20MG daily. * Neuropathic pain - Lyrica 300MG QHS. * Atrial Fibrillation - Xarelto 15MG daily. * Obstructive sleep apnea - CPAP at night. 03/23/18 0821 <Electronically signed by Vinny Carlton MD> Date Vinny Carlton MD Cosigner Signature: Date (if applicable) CC: Stephanie Fuchs MD; Vinny Carlton MD Signed CBC W/DIFF, AUTOMATED Collected: 03/23/2018 Status: F Source: SAW 5:15 AM [facility] REPOSITORY TYPE CODE TESTS RESULT OUT OF RANGE REFERENCE UNITS LAB L100.1000 4.4-11.0 K/mm3 Normal WBC 9.9 LAB L100.1200 4.6-6.2 M/mm3 Low RBC 3.39 LAB L100.1300 13.0-16.5 g/dl Low HGB 9.4 LAB L100.1400 40-54 % Low HCT 29.6 LAB L100.1500 80-94 fL Normal MCV 87.3 LAB L100.1600 27.0-32.0 pg Normal MCH 27.7 LAB L100.1700 32-36 g/gl Low MCHC 31.8 LAB L100.1810 11.6-14.6 % High RDW CV 17.8 LAB L100.1820 35.1-43.9 fl High RDW SD 55.8 LAB L100.1900 150-450 K/mm3 Normal PLT 269 LAB L100.2000 6.2-12.0 fl Normal MPV 10.7 LAB L100.2100 47-70 % High NEUT% 79.2 LAB L100.2200 19-41 % Low LY% 13.1 LAB L100.2300 0-10 % Normal MONO% 7.4 LAB L100.2400 0-5 % Normal EO% 0.0 LAB L100.2500 0-1 % Normal BASO% 0.0 LAB L100.2550 0.0-0.9 % Normal IM GRAN % 0.300 Result Comment: IG% - Immature Granulocytes (promyelocytes, myelocytes and metamyelocytes) > 1% indicates that a LEFT SHIFT is Present. LAB L100.2620 2.0-7.7 X10 3/uL High Absolute Neut 7.9 LAB L100.2720 0.83-4.51 X10 3/ul Normal Absolute Lymph 1.30 Performed By: #### L100.0100 #### [facility] [address] [place], [address] BASIC METABOLIC Collected: 03/23/2018 Status: F Source: [place] PROFILE (BMP) 5:15 AM [facility] REPOSITORY TYPE CODE TESTS RESULT OUT OF RANGE REFERENCE UNITS LAB L501.0100 74-106 mg/dL Normal GLU 101 Result Comment: Fasting Glucose result from 100 to 125 mg/dL suggests IMPAIRED HOMEOSTASIS per A.D.A. criteria. Please note revised GLUCOSE reference range effective 2017. LAB L501.1000 7-18 mg/dL High BUN 38 LAB L501.1100 0.70-1.30 mg/dL Normal CREAT,SERUM 1.01 Result Comment: The validity of the calculated GFR AND GFRAA in patients over 70 years has not been determined. Clinical correlation is essential. LAB L501.1110 >60 mL/min Normal EST GFR 76 Result Comment: Non- GFR Calc LAB L501.1115 >60 mL/min Normal EST GFR - AA 92 Result Comment: GFR Calc LAB L501.1255 ml/min Normal Estimated CRCL 61.23 LAB L501.1300 10-20 RATIO High BUN/CRE 37.6 LAB L501.2200 8.5-10 mg/dL Normal .1 CA 8.5 LAB L501.5300 136-14 mmol/L High 5 NA 146 LAB L501.5600 3.5-5. mmol/L Normal 1 K 3.5 LAB L501.5900 98-107 mmol/L High CL 112 LAB L501.6100 21.0-3 mmol/L Normal 2.0 CO2 28.0 LAB L501.6200 5-15 Normal GAP 6 Performed By: #### L500.2500 #### [facility] [address] [place], [address] TRANSFER TO EXTENDED Observed: 03/22/2018 Status: F Source: [place] CARE 5:58 PM [facility] REPOSITORY [facility] Medical Records Department [address] [place] [address] Transfer to Extended Care MR#: [id number] Acct: [id number] Name: HUNTER HENDRICKSON Jr. Rep #: [id number] : 1940 77 From: Modesto Mclaughlin DO PCP: Stephanie Fuchs MD Status: ADM IN [facility] (Patient) (Health Ins. Claim No.) (Day of Discharge to Facility) Certification of patient admission REQUIRED AT TIME OF ADMISSION. I CERTIFY THAT POST-HOSPITAL F SERVICES ARE REQUIRED TO BE GIVEN ON AN IN-PATIENT BASIS BECAUSE OF THE ABOVE NAMED PATIENT'S NEED FOR [facility] CARE ON A CONTINUING BASIS FOR THE CONDITION(S) FOR WHICH HE/SHE WAS RECEIVING IN-PATIENT HOSPITAL SERVICES PRIOR TO HIS/HER TRANSFER TO THE F. 03/22/181757 <Electronically signed by Modesto Mclaughlin DO> Date Modesto Mclaughlin DO - Diet 03/16/18 18:51 Diet: Regular Diet Food consistency:: Regular Liquid Consistency:: Regular/Thin - Wound(s) Left knee Wound Type: scab - Therapies Weight Bearing: Full weight bearing Physical Therapy: Eval and Treat Occupational Therapy: Eval and Treat - Problem/Diagnosis (1) Intractable headache Status: Acute Current Visit: Yes (2) COPD (chronic obstructive pulmonary disease) Status: Chronic Current Visit: No (3) Pulmonary hypertension Status: Chronic Current Visit: No (4) Stage 2 moderate COPD by GOLD classification Status: Chronic Current Visit: No (5) ARLENE (obstructive sleep apnea) Status: Chronic Current Visit: No (6) Cardiomyopathy Status: Chronic Current Visit: No (7) Coronary artery disease Status: Chronic Comment: S/P LAD and LCx stenting Current Visit: No (8) BPH (benign prostatic hypertrophy) with urinary obstruction Status: Chronic Current Visit: No (9) Degenerative joint disease involving multiple joints Status: Chronic Current Visit: Yes (10) Paroxysmal atrial fibrillation Status: Chronic Current Visit: Yes - Allergies/Procedures Done in Hospital Allergies/Adverse Reactions: Allergies lactose Allergy (Severe, Verified 03/16/18 11:21) unknown Penicillins Allergy (Severe, Verified 03/16/18 11:21) Anaphylaxis adhesive Allergy (Verified 03/16/18 11:21) Rash Sulfa (Sulfonamide Antibiotics) Allergy (Verified 03/16/18 11:21) Unknown diazepam [From Valium] Adverse Reaction (Verified 03/16/18 11:21) hyper opposite effect desired HYPER OPPOSITE EFFECT DESIRED niacin [From Niaspan Extended-Release] Adverse Reaction (Verified 03/16/18 11:21) low bp LOW BP simvastatin Adverse Reaction (Verified 03/16/18 11:21) Pain in joints Procedures: - - LUMBAR PUNCTURE - Type of Care/Length of Stay Estimated LOS: Convalescent Care Less Than 30 days Type of Care Needed: Skilled Rehab Potential: Good Prognosis: Good - Additional Orders/Day of Discharge Additional Orders: REMOVE CHAMBERS CATHETER IN 3 DAYS. USE HOME CPAP WHEN SLEEPING H AND P will serve as current which was dated: 03/16/18 Day of Discharge: 03/22/18 - Follow Up Care Primary Care Physician: Stephanie Fuchs MD [Primary Care Provider] - 03/22/18 175 <Electronically signed by Modesto Mclaughlin DO> Date Modesto Mclaughlin DO CC: Stephanie Fuchs MD Signed CBC W/DIFF, AUTOMATED Collected: 03/21/2018 Status: F Source: [place] 5:20 AM [facility] REPOSITORY TYPE CODE TESTS RESULT OUT OF RANGE REFERENCE UNITS LAB L100.1000 4.4-11.0 K/mm3 Normal WBC 9.1 LAB L100.1200 4.6-6.2 M/mm3 Low RBC 3.92 LAB L100.1300 13.0-16.5 g/dl Low HGB 10.5 LAB L100.1400 40-54 % Low HCT 33.8 LAB L100.1500 80-94 fL Normal MCV 86.2 LAB L100.1600 27.0-32.0 pg Low MCH 26.8 LAB L100.1700 32-36 g/gl Low MCHC 31.1 LAB L100.1810 11.6-14.6 % High RDW CV 17.1 LAB L100.1820 35.1-43.9 fl High RDW SD 54.1 LAB L100.1900 150-450 K/mm3 Normal PLT 222 LAB L100.2000 6.2-12.0 fl Normal MPV 10.4 LAB L100.2100 47-70 % High NEUT% 93.7 LAB L100.2200 19-41 % Low LY% 3.9 LAB L100.2300 0-10 % Normal MONO% 2.2 LAB L100.2400 0-5 % Normal EO% 0.0 LAB L100.2500 0-1 % Normal BASO% 0.1 LAB L100.2550 0.0-0.9 % Normal IM GRAN % 0.100 Result Comment: IG% - Immature Granulocytes (promyelocytes, myelocytes and metamyelocytes) > 1% indicates that a LEFT SHIFT is Present. LAB L100.2620 2.0-7.7 X10 3/uL High Absolute Neut 8.5 LAB L100.2720 0.83-4.51 X10 3/ul Low Absolute Lymph 0.35 LAB L100.4500 Normal SMEAR COMMENT SCANNED Result Comment: LYMPHOPENIA NOTED Performed By: #### L100.0100 #### [facility] [address] [place], [address] BASIC METABOLIC Collected: 03/21/2018 Status: F Source: [place] PROFILE (BMP) 5:20 AM [facility] REPOSITORY TYPE CODE TESTS RESULT OUT OF RANGE REFERENCE UNITS LAB L501.0100 74-106 mg/dL High GLU 151 Result Comment: Fasting Glucose result greater than or equal to 126 mg/dL suggests DIABETES MELLITUS per A.D.A. criteria. Please note revised GLUCOSE reference range effective 2017. LAB L501.1000 7-18 mg/dL High BUN 20 LAB L501.1100 0.70-1.30 mg/dL Normal CREAT,SERUM 0.94 Result Comment: The validity of the calculated GFR AND GFRAA in patients over 70 years has not been determined. Clinical correlation is essential. LAB L501.1110 >60 mL/min Normal EST GFR 82 Result Comment: Non- GFR Calc LAB L501.1115 >60 mL/min Normal EST GFR - AA 99 Result Comment: GFR Calc LAB L501.1255 ml/min Normal Estimated CRCL 65.79 LAB L501.1300 10-20 RATIO High BUN/CRE 21.2 LAB L501.2200 8.5-10 mg/dL Normal .1 CA 8.6 LAB L501.5300 136-14 mmol/L Normal 5 NA 143 LAB L501.5600 3.5-5. mmol/L Normal 1 K 3.7 LAB L501.5900 98-107 mmol/L Normal CL 106 LAB L501.6100 21.0-3 mmol/L Normal 2.0 CO2 27.0 LAB L501.6200 5-15 Normal GAP 10 Performed By: #### L500.2500 #### [facility] [address] [facility] [place], [address] CHEST 1 VIEW Observed: 03/20/2018 Status: F Source: [place] (PORTABLE) 10:15 AM [facility] REPOSITORY [facility] Imaging Services [address] [place] [address] Chest 1 View (Portable) MR#: [id number] Acct: [id number] Name: HUNTER HENDRICKSON Rep #: [id number] : 1940 M 77 From: Catracho Shepherd MD PCP: Stephanie Fuchs MD Status: ADM IN Study: Chest 1 View (Portable) Date of Exam: 03/20/18 Exam# [id number] Ordering Dr: Ray Watts MD STUDY: X-RAY CHEST REASON FOR EXAM: Male, 77 years old. Shortness of breath and dyspnea. TECHNIQUE: Single AP portable view of the chest. COMPARISON: 03/16/2018. FINDINGS: There again is a dual-chamber left pacemaker in stable position. There is mild infiltrate/atelectasis in the right lower lung. There is no demonstrated pleural abnormality. There is borderline cardiomegaly. Normal mediastinum and elis. Normal visualized pulmonary arteries. There is atherosclerotic calcification of the aortic arch with tortuosity. The bony structures are unchanged. There is no demonstrated abnormality of the visualized soft tissue structures of the upper abdomen. RAD/Chest 1 View (Portable) IMPRESSION: Mild right lower lung infiltrate/atelectasis. Electronically Signed: Catracho Shepherd MD at 13:25 EST Tel , Service support , CC: Stephanie Fucsh MD; Ray Watts MD Mold Filler: Signed VANCOMYCIN, TROUGH Collected: 03/20/2018 Status: F Source: SAW LEVEL 8:31 AM [facility] REPOSITORY Order Comment: Time Medication is to be Given? 0900 TYPE CODE TESTS RESULT OUT OF REFERENCE UNITS RANGE LAB L501.8820 5.0-15.0 ug/mL High VANCO, TROUGH 19.0 Result Comment: VANCOMYCIN STANDARED DRUG THERAPY TROUGH LEVEL: 5.0 - 15.0 mg/L VANCOMYCIN HIGH INTENSITY THERAPY TROUGH LEVEL: 15.0 - 20.0 mg/L High Intensity therapy recommended for serious life threatening infections include: - Meningitis -Endocarditis -Pneumonia (Ventilator/Healtcare Associated) -Sepsis PLEASE CONTACT PHARMACY SERVICES (#[id number]) FOR INTERPRETATION OF RESULTS. Performed By: #### L501.8820 #### [facility] [address] [place], [address] ERYTHROCYTE SED RATE Collected: 03/20/2018 Status: F Source: [place] 8:30 AM [facility] REPOSITORY TYPE CODE TESTS RESULT OUT OF RANGE REFERENCE UNITS LAB L102.0000 0-20 mm/hr High SED RATE 68 Performed By: #### L101.9900 #### [facility] [address] [place], [address] CRP Collected: 03/20/2018 Status: F Source: [place] 8:30 AM [facility] REPOSITORY TYPE CODE TESTS RESULT OUT OF RANGE REFERENCE UNITS LAB L501.6710 0.0-3.0 mg/L High 241.00 C-REACTIVE PROT Result Comment: C-Reactive Protein (CRP) provides useful information for the diagnosis, therapy and monitoring of inflammatory processes and associated diseases. For the evaluation of Relative Risk for Cardiovascular Disease, a High Sensitivity CRP (HSCRP) should be ordered. Performed By: #### L501.6710 #### [facility] [address] [place], [place], [address] CBC W/DIFF, AUTOMATED Collected: 03/19/2018 Status: F Source: SAW 6:50 AM [facility] REPOSITORY TYPE CODE TESTS RESULT OUT OF RANGE REFERENCE UNITS LAB L100.1000 4.4-11.0 K/mm3 Normal WBC 10.7 LAB L100.1200 4.6-6.2 M/mm3 Low RBC 4.32 LAB L100.1300 13.0-16.5 g/dl Low HGB 11.8 LAB L100.1400 40-54 % Low HCT 37.8 LAB L100.1500 80-94 fL Normal MCV 87.5 LAB L100.1600 27.0-32.0 pg Normal MCH 27.3 LAB L100.1700 32-36 g/gl Low MCHC 31.2 LAB L100.1810 11.6-14.6 % High RDW CV 16.9 LAB L100.1820 35.1-43.9 fl High RDW SD 54.2 LAB L100.1900 150-450 K/mm3 Normal PLT 228 LAB L100.2000 6.2-12.0 fl Normal MPV 11.2 LAB L100.2100 47-70 % High NEUT% 79.5 LAB L100.2200 19-41 % Low LY% 9.8 LAB L100.2300 0-10 % High MONO% 10.1 LAB L100.2400 0-5 % Normal EO% 0.2 LAB L100.2500 0-1 % Normal BASO% 0.2 LAB L100.2550 0.0-0.9 % Normal IM GRAN % 0.200 Result Comment: IG% - Immature Granulocytes (promyelocytes, myelocytes and metamyelocytes) > 1% indicates that a LEFT SHIFT is Present. LAB L100.2620 2.0-7.7 X10 3/uL High Absolute Neut 8.5 LAB L100.2720 0.83-4.51 X10 3/ul Normal Absolute Lymph 1.05 Performed By: #### L100.0100 #### [facility] [address] [place], [address] BASIC METABOLIC Collected: 03/19/2018 Status: F Source: SAW PROFILE (BMP) 6:50 AM [facility] REPOSITORY TYPE CODE TESTS RESULT OUT OF RANGE REFERENCE UNITS LAB L501.0100 74-106 mg/dL Normal GLU 106 Result Comment: Fasting Glucose result from 100 to 125 mg/dL suggests IMPAIRED HOMEOSTASIS per A.D.A. criteria. Please note revised GLUCOSE reference range effective 2017. LAB L501.1000 7-18 mg/dL Normal BUN 16 LAB L501.1100 0.70-1.30 mg/dL Normal CREAT,SERUM 0.83 Result Comment: The validity of the calculated GFR AND GFRAA in patients over 70 years has not been determined. Clinical correlation is essential. LAB L501.1110 >60 mL/min Normal EST GFR 94 Result Comment: Non- GFR Calc LAB L501.1115 >60 mL/min Normal EST GFR - AA 114 Result Comment: GFR Calc LAB L501.1255 ml/min Normal Estimated CRCL 74.51 LAB L501.1300 10-20 RATIO Normal BUN/CRE 19.2 LAB L501.2200 8.5-10 mg/dL Normal .1 CA 8.6 LAB L501.5300 136-14 mmol/L Normal 5 NA 138 LAB L501.5600 3.5-5. mmol/L Normal 1 K 3.9 LAB L501.5900 98-107 mmol/L Normal CL 102 LAB L501.6100 21.0-3 mmol/L Normal 2.0 CO2 29.0 LAB L501.6200 5-15 Normal GAP 7 Performed By: #### L500.2500 #### [facility] [address] [place], [address] SPINAL FLUID CELL Collected: 03/18/2018 Status: C Source: [place] COUNT+DIFF 9:23 AM [facility] REPOSITORY TYPE CODE TESTS RESULT OUT OF RANGE REFERENCE UNITS LAB L200.2695 0.000-0.000 10 3/uL High TC CSF 0.001 Result Comment: This is the Total Number of Nucleated Cell Types in the Body Fluid. LAB L200.2750 0.000-0.000 10 3/uL High WBC,CSF 0.001 LAB L200.3000 Normal PATH REV Reviewed Result Comment: Negative for malignant cells. Man Faye M.D. 03/18/18 AMENDED REPORT 03/18/18 1556 PATH REV previously reported as: May follow LAB L200.3510 % BF Normal PMN WBC% 100.0 LAB L200.3515 % BF MN Normal WBC% 0.0 LAB L200.3520 10 3/uL BF MN Normal WBC# 0.000 LAB L200.3525 10 3/uL BF Normal PMN WBC# 0.001 LAB L200.2500 4 Normal TESTED TUBE # LAB L200.2600 Colorless CSF Normal Color COLORLESS LAB L200.2650 Clear Normal APPEARANCE CSF CLEAR LAB L200.2700 None seen /mm-3 0 Normal RBC,CSF Performed By: #### L200.0100 #### [facility] [address] [place], [address] Observed: 03/18/2018 Status: F Source: SAW CULTURE, CSF 9:23 AM [facility] REPOSITORY Gram Stain Centrifuged Specimen? Culture performed on centrifuged specimen Gram Stain Rare White Blood Cells No organisms seen CSF Culture No growth in 72 hours. Performed By: #### M100.0700 #### [facility] [address] [place], [address] VANCOMYCIN, TROUGH Collected: 03/18/2018 Status: F Source: SAW LEVEL 8:08 AM [facility] REPOSITORY Order Comment: Comments: PLEASE DRAW 30MIN PRIOR TO DOSE ON 03/18 @0900 Time Medication is to be Given? 0900 TYPE CODE TESTS RESULT OUT OF RANGE REFERENCE UNITS LAB L501.8820 5.0-15.0 ug/mL Normal VANCO, TROUGH 11.9 Result Comment: VANCOMYCIN STANDARED DRUG THERAPY TROUGH LEVEL: 5.0 - 15.0 mg/L VANCOMYCIN HIGH INTENSITY THERAPY TROUGH LEVEL: 15.0 - 20.0 mg/L High Intensity therapy recommended for serious life threatening infections include: - Meningitis -Endocarditis -Pneumonia (Ventilator/Healtcare Associated) -Sepsis PLEASE CONTACT PHARMACY SERVICES (#[id number]) FOR INTERPRETATION OF RESULTS. Performed By: #### L501.8820 #### [facility] [address] [place], [address] CBC W/DIFF, AUTOMATED Collected: 03/18/2018 Status: F Source: SAW 5:22 AM [facility] REPOSITORY TYPE CODE TESTS RESULT OUT OF RANGE REFERENCE UNITS LAB L100.1000 4.4-11.0 K/mm3 Normal WBC 9.7 LAB L100.1200 4.6-6.2 M/mm3 Low RBC 4.12 LAB L100.1300 13.0-16.5 g/dl Low HGB 11.3 LAB L100.1400 40-54 % Low HCT 36.5 LAB L100.1500 80-94 fL Normal MCV 88.6 LAB L100.1600 27.0-32.0 pg Normal MCH 27.4 LAB L100.1700 32-36 g/gl Low MCHC 31.0 LAB L100.1810 11.6-14.6 % High RDW CV 17.2 LAB L100.1820 35.1-43.9 fl High RDW SD 56.2 LAB L100.1900 150-450 K/mm3 Normal PLT 221 LAB L100.2000 6.2-12.0 fl Normal MPV 11.0 LAB L100.2100 47-70 % High NEUT% 79.5 LAB L100.2200 19-41 % Low LY% 6.5 LAB L100.2300 0-10 % High MONO% 13.3 LAB L100.2400 0-5 % Normal EO% 0.3 LAB L100.2500 0-1 % Normal BASO% 0.2 LAB L100.2550 0.0-0.9 % Normal IM GRAN % 0.200 Result Comment: IG% - Immature Granulocytes (promyelocytes, myelocytes and metamyelocytes) > 1% indicates that a LEFT SHIFT is Present. LAB L100.2620 2.0-7.7 X10 3/uL Normal Absolute Neut 7.7 LAB L100.2720 0.83-4.51 X10 3/ul Low Absolute Lymph 0.63 Performed By: #### L100.0100 #### [facility] [address] [place], [place], [id number] BASIC METABOLIC Collected: 03/18/2018 Status: F Source: SAW PROFILE ([facility]) 5:22 AM [facility] REPOSITORY TYPE CODE TESTS RESULT OUT OF RANGE REFERENCE UNITS LAB L501.0100 74-106 mg/dL High GLU 110 Result Comment: Fasting Glucose result from 100 to 125 mg/dL suggests IMPAIRED HOMEOSTASIS per A.D.A. criteria. Please note revised GLUCOSE reference range effective 2017. LAB L501.1000 7-18 mg/dL Normal BUN 15 LAB L501.1100 0.70-1.30 mg/dL Normal CREAT,SERUM 0.87 Result Comment: The validity of the calculated GFR AND GFRAA in patients over 70 years has not been determined. Clinical correlation is essential. LAB L501.1110 >60 mL/min Normal EST GFR 89 Result Comment: Non- GFR Calc LAB L501.1115 >60 mL/min Normal EST GFR - AA 108 Result Comment: GFR Calc LAB L501.1255 ml/min Normal Estimated CRCL 71.09 LAB L501.1300 10-20 RATIO Normal BUN/CRE 17.2 LAB L501.2200 8.5-10 mg/dL Normal .1 CA 8.5 LAB L501.5300 136-14 mmol/L Normal 5 NA 142 LAB L501.5600 3.5-5. mmol/L Normal 1 K 3.6 LAB L501.5900 98-107 mmol/L Normal CL 107 LAB L501.6100 21.0-3 mmol/L Normal 2.0 CO2 27.0 LAB L501.6200 5-15 Normal GAP 8 Performed By: #### L500.2500 #### [facility] [address] [place], [place], [id number] PROTHROMBIN TIME W/INR Collected: 03/17/2018 Status: F Source: [place] 5:30 AM [facility] REPOSITORY TYPE CODE TESTS RESULT OUT OF RANGE REFERENCE UNITS LAB L300.4150 11.7-14.9 SECONDS Normal PROTIME 14.4 LAB L300.4200 Normal INR 1.1 Performed By: #### L300.3900 #### [facility] [address] [place], [place], [id number] BASIC METABOLIC Collected: 03/17/2018 Status: F Source: [place] PROFILE (BMP) 5:30 AM [facility] REPOSITORY TYPE CODE TESTS RESULT OUT OF RANGE REFERENCE UNITS LAB L501.0100 74-106 mg/dL Normal GLU 95 Result Comment: Please note revised GLUCOSE reference range effective 2017. LAB L501.1000 7-18 mg/dL Normal BUN 15 LAB L501.1100 0.70-1.30 mg/dL Normal CREAT,SERUM 0.88 Result Comment: The validity of the calculated GFR AND GFRAA in patients over 70 years has not been determined. Clinical correlation is essential. LAB L501.1110 >60 mL/min Normal EST GFR 89 Result Comment: Non- GFR Calc LAB L501.1115 >60 mL/min Normal EST GFR - AA 108 Result Comment: GFR Calc LAB L501.1255 ml/min Normal Estimated CRCL 70.28 LAB L501.1300 10-20 RATIO Normal BUN/CRE 17.1 LAB L501.2200 8.5-10 mg/dL Low .1 CA 8.2 LAB L501.5300 136-14 mmol/L Normal 5 NA 142 LAB L501.5600 3.5-5. mmol/L Normal 1 K 3.8 LAB L501.5900 98-107 mmol/L High CL 108 LAB L501.6100 21.0-3 mmol/L Normal 2.0 CO2 28.0 LAB L501.6200 5-15 Normal GAP 6 Performed By: #### L500.2500 #### [facility] [address] [facility] [place], [address] FLUORO GUIDED LUMBAR Observed: 03/16/2018 Status: F Source: [place] PUNCTURE 6:51 PM [facility] REPOSITORY [facility] Imaging Services [address] [place] [address] Fluoro Guided Lumbar Puncture MR#: [id number] Acct: [id number] Name: HUNTER HENDRICKSON Jr. Rep #: [id number] : 1940 M 77 From: Stef Carlton MD PCP: Stephanie Fuchs MD Status: ADM IN Study: Fluoro Guided Lumbar Puncture Date of Exam: 03/18/18 Exam# [id number] Ordering Dr: Olvin Chopra DO PROCEDURE: Fluoroscopic guided Lumbar Puncture. DATE: March 18, 2018. CLINICAL INDICATION: Altered mental status. Neck pain. PHYSICIAN: Stef Carlton M.D. MEDICATIONS: 1% lidocaine administered subcutaneously for local anesthesia. ACCESS SITE: Lower posterior back. NEEDLE: 22-gauge spinal needle. SPECIMEN: Approximately 13.5 mL clear]CSF fluid. FLUOROSCOPY TIME (if supplied): (1:36) minutes/seconds COMPLICATIONS: None immediate. The risks, benefits, and alternatives to the procedure were explained to the patient. The specific risks of bleeding, infection, and neurovascular injury were detailed and accepted. Witnessed informed consent was obtained. The patient was placed on the fluoroscopic table in the prone position. The level for needle entry was determined and marked. The overlying skin was cleaned and prepped in the usual sterile fashion. 2% lidocaine was administered subcutaneously for local anesthesia. Under fluoroscopic guidance a 22-gauge spinal needle was advanced. The thecal sac was entered at the L2-L3 vertebral level. The inner stylet was removed. There was spontaneous flow of clear CSF fluid. The patient was placed in a reversed Trendelenburg position. Approximately 13 mL of cerebrospinal fluid was collected using gravity. The specimen was collected and submitted to the laboratory for further evaluation. The needle was withdrawn,. Hemostasis was achieved and a sterile dressing placed. The patient tolerated the procedure well without any immediate complications. The patient was placed supine with head elevated and returned to the floor in stable condition. RAD/Fluoro Guided Lumbar Puncture IMPRESSION: Successful fluoroscopic-guided lumbar puncture. Electronically Signed: Stef Carlton MD at 10:21 EST Tel [phone], Service support , CC: Stephanie Fuchs MD; Olvin Chopra DO Mold Filler: Signed HISTORY AND PHYSICAL Observed: 03/16/2018 Status: F Source: [place] EXAM 5:37 PM [facility] REPOSITORY [facility] Medical Records Department [address] [place] [address] History and Physical 03/16/18 1725 MR#: [id number] Acct: [id number] Name: MADHAVIHUNTER Ortiz Rep #: [id number] : 1940 77 From: Olvin Chopra DO PCP: Stephanie Fuchs MD Status: ADM IN Location: HI3 [id number] Problem List (1) Intractable headache Status: Acute Qualifiers: Headache type: unspecified Headache chronicity pattern: acute headache Qualified Code(s): R51 - Headache (2) Neck stiffness Status: Acute History of Present Illness Date of Admission: 03/16/18 Chief Complaint: headache and neck pain. The patient is a 77 year old M who having some back pain for 3 days ago. Was hard for the patient to move. Today, the patient had a very severe headache and was not even able to move his neck as well. Patient presented to the emergency room for further evaluation. Patient did state that he was having some low-grade temperatures of around 9 F. Is never had anything like this before. Patient was admitted to the hospital in January for low back pain. Is hospitalization was comp gated by heart failure, respiratory failure. [facility] was [facility] detention facility and patient did leave prior to his therapy services and being officially concluded. [] Past Medical History Past Medical History (Chronic Problems): Chronic Problems (Last Reviewed 03/16/18 @ 17:27 by Olvin Chopra DO) CHF (congestive heart failure) (Chronic) diastolic COPD (chronic obstructive pulmonary disease) (Chronic) Pulmonary hypertension (Chronic) Tobacco abuse (Chronic) AAA (abdominal aortic aneurysm) (Chronic) PVD (peripheral vascular disease) (Chronic) Long-term use of high-risk medication (Chronic) Stage 2 moderate COPD by GOLD classification (Chronic) Malaise and fatigue (Chronic) ARLENE (obstructive sleep apnea) (Chronic) Central sleep apnea (Chronic) S/P PTCA (percutaneous transluminal coronary angioplasty) (Chronic) Cardiomyopathy (Chronic) SSS (sick sinus syndrome) (Chronic) Autonomic dysfunction (Chronic) HLD (hyperlipidemia) (Chronic) PAD (peripheral artery disease) (Chronic) Community acquired pneumonia (Chronic) Coronary artery disease (Chronic) S/P LAD and LCx stenting BPH (benign prostatic hypertrophy) with urinary obstruction (Chronic) Depressive disorder (Chronic) HTN (hypertension) (Chronic) Atrial fibrillation (Chronic) GERD (gastroesophageal reflux disease) (Chronic) History of orchiectomy, unilateral (Chronic) Pacemaker (Chronic) Nephrolithiasis (Chronic) Personality disorder (Chronic) Medical History: Medical History (Last Reviewed 03/16/18 @ 17:27 by Olvin Chopra DO) Fever (Acute) R50.9 CHF (congestive heart failure) (Chronic) I50.9 diastolic COPD (chronic obstructive pulmonary disease) (Chronic) J44.9 Pulmonary hypertension (Chronic) I27.20 Intractable low back pain (Acute) M54.5 Shortness of breath (Acute) R06.02 Aspiration pneumonia (Resolved) J69.0 Tobacco abuse (Chronic) Z72.0 AAA (abdominal aortic aneurysm) (Chronic) I71.4 PVD (peripheral vascular disease) (Chronic) I73.9 Palpitations (Acute) R00.2 Long-term use of high-risk medication (Chronic) Z79.899 Dizziness and giddiness (Resolved) R42 Syncope (Resolved) R55 Cough (Resolved) R05 Dyspnea (Acute) R06.00 Bronchitis (Resolved) J40 Stage 2 moderate COPD by GOLD classification (Chronic) J44.9 Acute respiratory failure with hypoxia (Acute) J96.01 Malaise and fatigue (Chronic) R53.81, R53.83 ARLENE (obstructive sleep apnea) (Chronic) G47.33 Central sleep apnea (Chronic) G47.31 Respiratory failure with hypoxia (Resolved) J96.91 Unstable angina (Resolved) Chest pain (Resolved) R07.9 Cardiomyopathy (Chronic) I42.9 SSS (sick sinus syndrome) (Chronic) I49.5 Autonomic dysfunction (Chronic) G90.9 HLD (hyperlipidemia) (Chronic) E78.5 PAD (peripheral artery disease) (Chronic) I73.9 Acute kidney injury (Acute) N17.9 Sepsis (Resolved) A41.9 Community acquired pneumonia (Chronic) J18.9 Coronary artery disease (Chronic) I25.10 S/P LAD and LCx stenting BPH (benign prostatic hypertrophy) with urinary obstruction (Chronic) N40.1, N13.8 Depressive disorder (Chronic) F32.9 HTN (hypertension) (Chronic) I10 Atrial fibrillation (Chronic) I48.91 GERD (gastroesophageal reflux disease) (Chronic) K21.9 Pacemaker (Chronic) Z95.0 Nephrolithiasis (Chronic) Personality disorder (Chronic) F60.9 Allergies lactose Allergy (Severe, Verified 03/16/18 11:21) unknown Penicillins Allergy (Severe, Verified 03/16/18 11:21) Anaphylaxis adhesive Allergy (Verified 03/16/18 11:21) Rash Sulfa (Sulfonamide Antibiotics) Allergy (Verified 03/16/18 11:21) Unknown diazepam [From Valium] Adverse Reaction (Verified 03/16/18 11:21) hyper opposite effect desired HYPER OPPOSITE EFFECT DESIRED niacin [From Niaspan Extended-Release] Adverse Reaction (Verified 03/16/18 11:21) low bp LOW BP simvastatin Adverse Reaction (Verified 03/16/18 11:21) Pain in joints Home Medications: Ambulatory Orders Medication Instructions Recorded Cholecalciferol (Vitamin D3) 1 tab PO DAILY 06/18/17 Surgical History: Surgical History (Last Reviewed 03/16/18 @ 17:27 by Olvin Chopra DO) S/P TURP (status post transurethral resection of prostate) (Resolved) Z90.79 pacemaker implantation (Resolved) generator change History of inguinal hernia repair (Resolved) Z98.890, Z87.19 History of hemorrhoidectomy (Resolved) Z98.890 History of prostatectomy (Resolved) Z98.890, Z90.79 right ochiectomy (Resolved) History of appendectomy (Resolved) Z98.890, Z90.49 S/P PTCA (percutaneous transluminal coronary angioplasty) (Chronic) Z98.61 History of orchiectomy, unilateral (Chronic) Z90.79 Surgical History: angioplasty, appendectomy, cholecystectomy, herniorrhaphy Smoking Status: Current every day smoker - *Family History Paternal Family History: Family History (Last Reviewed 03/16/18 @ 17:27 by Olvin Chopra DO) Father CAD (coronary artery disease) Mother Breast cancer Arthritis CAD (coronary artery disease) Hypertension Sister CVA (cerebral vascular accident) Diabetes Hypertension Son CAD (coronary artery disease) Hypertension History Items: Heart Disease, Renal Disease Sibling Family History: Family History (Last Reviewed 03/16/18 @ 17:27 by Olvin Chopra DO) Father CAD (coronary artery disease) Mother Breast cancer Arthritis CAD (coronary artery disease) Hypertension Sister CVA (cerebral vascular accident) Diabetes Hypertension Son CAD (coronary artery disease) Hypertension History Items: Diabetes, Heart Disease Offspring Family History: Family History (Last Reviewed 03/16/18 @ 17:27 by Olvin Chopra DO) Father CAD (coronary artery disease) Mother Breast cancer Arthritis CAD (coronary artery disease) Hypertension Sister CVA (cerebral vascular accident) Diabetes Hypertension Son CAD (coronary artery disease) Hypertension History Items: Heart Disease Maternal Family History: Family History (Last Reviewed 03/16/18 @ 17:27 by Olvin Chopra DO) Father CAD (coronary artery disease) Mother Breast cancer Arthritis CAD (coronary artery disease) Hypertension Sister CVA (cerebral vascular accident) Diabetes Hypertension Son CAD (coronary artery disease) Hypertension History Items: Cancer, Heart Disease Review of Systems Constitutional: Reports: Chills, Fever. Denies: Anorexia, Night Sweats Eyes: Denies: Blurred vision, Double vision HEENT: Denies: Head Aches, Sinus Congestion, Sinus Drainage Cardiovascular: Denies: Chest Pain, Palpitations Respiratory: Denies: Cough, Shortness of breath at rest, Sputum production Gastrointestinal: Reports: Abdominal Pain - Chronic and intermittent, Diarrhea - Chronic and intermittent, Nausea - Chronic and intermittent Genitourinary: Reports: Dysuria - Chronic Musculoskeletal: Reports: Back Pain, Leg Pain. Denies: Arm Pain Skin: Denies: Rash, Wounds Neurological: Denies: Blurred vision, Double vision, Focal weakness, Numbness, Tingling Psychiatric: Denies: Anxiety, Depression Endocrine: Denies: Change in Body Habitus, Heat/ Cold Intolerance Hematologic/ Lymphatic: Denies: Easy Bruising, Easy Bleeding, Hx of blood clot Comment: A 10 point review systems otherwise negative except for as mentioned above and in the HPI. VTE Information - Inpt Only VTE Present on Admission: No VTE Mechan Device Prophylaxis: SCD's VTE Pharm Prophylaxis ordered?: No Reason prophylaxis not ordered:: Medical Contraindication - Being held for lumbar puncture. Can be resumed afterwards. Patient Problems: Active and Suspected Problems (Last Reviewed 03/16/18 @ 17:27 by Olvin Chopra DO) Intractable headache (Acute) Neck stiffness (Acute) - Physical Exam General: Alert, Cooperative, Well developed, Well nourished, - - Uncomfortable but pleasant demeanor. Afebrile. HEENT: Atraumatic, PERRLA, EOMI, Normocephalic Oral: Moist Mucosa, No Gingival or Mucosal Lesions/ Ulcerations Neck: No Nodes, Thyroid Normal Size and Texture Lungs: Clear to auscultation, Normal air movement, No rhonchi, No wheeze Cardiovascular: Regular rate, Regular Rhythm, Normal S1, Normal S2, No murmurs Abdomen: Bowel Sounds Present, Soft, Non Tender, Non-Distended, No Hepato-splenomegaly Extremities: No edema, No Calf Tenderness Skin: No rashes, No breakdown Musculoskeletal: No Muscle Wasting, - - Tender cervical paraspinal muscles. Neurological: Cranial nerves II-XII grossly intact, Neuro grossly intact, Motor Exam 5/5 strength throughout, - - Positive Kernig's sign Psych/Mental Status: Normal Affect, Appropriate Vital Signs Temp Pulse Resp BP Pulse Ox 36.8 C 74 15 168/86 H 96 03/16/18 11:17 03/16/18 17:12 03/16/18 17:12 03/16/18 17:12 03/16/18 17:12 Oxygen Flow Rate (L/min) 2 Oxygen Delivery Method Nasal Cannula Weight: 85 kg Body Mass Index (BMI) 26.9 Microbiology Past 72 Hours 03/16/18 12:30 Group A Streptococcus Rapid Screen - Preliminary Mucosa - Throat 03/16/18 Unknown Influenza Types A,B Direct FA (BRIAN) - Final Mucosa - Nose Laboratory Tests Past 24 Hrs Clinical Impression(s) from Imaging Studies Chest X-Ray 03/16/18 12:10 IMPRESSION: Mild increased markings at the right lung base as compared to prior study suggestive of atelectasis and/or early infiltrate. Electronically Signed: Stef Carlton MD at 12:40 EST Tel [phone], Service support , Brain CT 03/16/18 14:00 IMPRESSION: Chronic involutional changes of the brain. Electronically Signed: Stef Carlton MD at 14:35 EST Tel [phone], Service support , Cervical Spine CT 03/16/18 14:20 IMPRESSION: Multilevel degenerative changes, as described above. Electronically Signed: Stef Carlton MD at 14:43 EST Tel [phone], Service support , Assessment/Plan All Active Problems (Last Reviewed 03/16/18 @ 17:27 by Olvin Chopra DO) Intractable headache (Acute) Neck stiffness (Acute) Fever (Acute) Intractable low back pain (Acute) Shortness of breath (Acute) Aspiration pneumonia (Resolved) S/P TURP (status post transurethral resection of prostate) (Resolved) pacemaker implantation (Resolved) History of inguinal hernia repair (Resolved) History of hemorrhoidectomy (Resolved) History of prostatectomy (Resolved) right ochiectomy (Resolved) History of appendectomy (Resolved) Palpitations (Acute) Dizziness and giddiness (Resolved) Syncope (Resolved) Cough (Resolved) Dyspnea (Acute) Bronchitis (Resolved) Acute respiratory failure with hypoxia (Acute) Respiratory failure with hypoxia (Resolved) Unstable angina (Resolved) Chest pain (Resolved) Acute kidney injury (Acute) Sepsis (Resolved) 1. Intractable headache * Unclear etiology at this time though the primary concern right now is for meningitis. Other possibilities could be related with encephalitis versus migraine versus tension type headache * Since there is concern for meningitis, patient will need to have a lumbar puncture to rule out. Will order studies as well. * Patient will be on empiric vancomycin and Rocephin. Given his age patient will also need to be on a penicillin or an equivalent. Given the patient has an allergy to penicillin patient will be put on aztreonam * May start to de-escalate antibiotics based on culture results * Other possibilities could be musculoskeletal which patient will have Flexeril as well as other pain medications. Given the severity of the patient's neck and back pain patient will be on narcotics as well which may aggravate headaches if this happens to be migraine but until we get further clear evidence to rule out infectious process this will be included at this time. * Given that patient was having symptoms days prior to this this does not seem consistent with subarachnoid hemorrhage though cannot be ruled out that this is a possibility definitively. But if evidence of blood is present may consider transfer to tertiary facility for neurosurgery evaluation. 2. Neck and back pain * May be musculoskeletal but cannot rule out meningismus at this time * See above for further descriptions 3. Atrial fibrillation * Will hold patient's Xarelto. Last dose of Xarelto was on the at night. Additionally hold his aspirin. * Not be noted, that the patient does not appear to be any kind of rate controlling medications. On telemetry, patient appears to be in sinus rhythm. 4. DVT prophylaxis: Patient be on SCDs. Resume his Xarelto after the lumbar puncture when appropriate. Code Visit Inpatient E AND M: [id number] Init Hosp 03/16/18 6059 <Electronically signed by Olvin Chopra DO> Date Olvin Chopra DO Cosigner Signature: Date (if applicable) CC: Stephanie Fuchs MD; Olvin Chopra DO; Apollo Arango MD Signed EMERGENCY DEPARTMENT Observed: 03/16/2018 Status: F Source: [place] SUMMARY 5:25 PM [facility] REPOSITORY [facility] Medical Records Department [address] [place] [address] Emergency Department Summary 03/16/18 1155 MR#: [id number] Acct: [id number] Name: MADHAVIHUNTERLYNN Ortiz Jr. Rep #: [id number] : 1940 77 From: Kelby Cantu MD PCP: Stephanie Fuchs MD Status: ADM IN History of Present Illness Chief Complaint: Back Informant: Patient Onset: Days - 2-3 Context: Gradual Onset Timing: Continuous Quality: pain Location: head, neck, into shoulders/trapezius Current Severity: Severe Maximum Severity: Severe Worsened by: moving Relieved by: remaining still Associated Symptoms: fever this AM 99.2 Narrative: Patient had gradual onset of global headache, pain/stiffness in his neck, with the pain going down into the trapezius on each side toward his shoulders. He really is not having new symptoms elsewhere, no confusion. No recent injury, he can think of nothing that he did to cause a neck muscle strain, but he cannot move his head because it hurts his neck so bad to do so. He has chronic numbness in both lower extremities from peripheral neuropathy, with occasional numbness in his left upper extremity as well, unchanged in the last couple days. No vision symptoms. No weakness. No cough. Has chronic COPD and is chronically dyspneic with exertion and that is unchanged. Mild sore throat, no earache or other upper respiratory symptoms. He did have an influenza vaccine this year, it was administered just 1-2 weeks ago and he states he still feels sore in his left shoulder from the shot. At this time, only very few positive influenza swabs have been seen this season at this hospital. Prior similar symptoms: No - Past Medical History (1) CHF (congestive heart failure) Status: Chronic Comment: diastolic (2) COPD (chronic obstructive pulmonary disease) Status: Chronic (3) Atrial fibrillation Status: Chronic (4) BPH (benign prostatic hypertrophy) with urinary obstruction Status: Chronic (5) Coronary artery disease Status: Chronic Comment: S/P LAD and LCx stenting (6) Depressive disorder Status: Chronic (7) GERD (gastroesophageal reflux disease) Status: Chronic (8) HLD (hyperlipidemia) Status: Chronic (9) HTN (hypertension) Status: Chronic (10) ARLENE (obstructive sleep apnea) Status: Chronic (11) PAD (peripheral artery disease) Status: Chronic (12) Pacemaker Status: Chronic (13) Personality disorder Status: Chronic (14) Pulmonary hypertension Status: Chronic (15) SSS (sick sinus syndrome) Status: Chronic Past Medical History - Allergies and Home Meds Allergies/Adverse Reactions: Allergies lactose Allergy (Severe, Verified 03/16/18 11:21) unknown Penicillins Allergy (Severe, Verified 03/16/18 11:21) Anaphylaxis adhesive Allergy (Verified 03/16/18 11:21) Rash Sulfa (Sulfonamide Antibiotics) Allergy (Verified 03/16/18 11:21) Unknown diazepam [From Valium] Adverse Reaction (Verified 03/16/18 11:21) hyper opposite effect desired HYPER OPPOSITE EFFECT DESIRED niacin [From Niaspan Extended-Release] Adverse Reaction (Verified 03/16/18 11:21) low bp LOW BP simvastatin Adverse Reaction (Verified 03/16/18 11:21) Pain in joints Primary Care Physician: Stephanie Fuchs MD [Primary Care Provider] - Surgical History: angioplasty, appendectomy, cholecystectomy, herniorrhaphy Smoking Status: Current every day smoker - Family History Paternal Family History: Family History (Last Reviewed 03/14/18 @ 13:10 by Mariya Holden) Father CAD (coronary artery disease) Mother Breast cancer Arthritis CAD (coronary artery disease) Hypertension Sister CVA (cerebral vascular accident) Diabetes Hypertension Son CAD (coronary artery disease) Hypertension Family History: Reports: Heart Disease, Renal Disease Sibling Family History: Family History (Last Reviewed 03/14/18 @ 13:10 by Mariya Holden) Father CAD (coronary artery disease) Mother Breast cancer Arthritis CAD (coronary artery disease) Hypertension Sister CVA (cerebral vascular accident) Diabetes Hypertension Son CAD (coronary artery disease) Hypertension Family History: Reports: Diabetes, Heart Disease Offspring Family History: Family History (Last Reviewed 03/14/18 @ 13:10 by Mariya Holden) Father CAD (coronary artery disease) Mother Breast cancer Arthritis CAD (coronary artery disease) Hypertension Sister CVA (cerebral vascular accident) Diabetes Hypertension Son CAD (coronary artery disease) Hypertension Family History: Reports: Heart Disease Maternal Family History: Family History (Last Reviewed 03/14/18 @ 13:10 by Mariya Holden) Father CAD (coronary artery disease) Mother Breast cancer Arthritis CAD (coronary artery disease) Hypertension Sister CVA (cerebral vascular accident) Diabetes Hypertension Son CAD (coronary artery disease) Hypertension Family History: Reports: Cancer, Heart Disease Review of Systems General: Reports: Chills, Fever, Malaise. Denies: Sweats Eyes: Denies: Visual changes - bilaterally, Diplopia ENT: Reports: Sore throat. Denies: Bilateral ear pain, Rhinorrhea Cardiovascular: Denies: Chest pain, Palpitations Respiratory: Reports: Dyspnea on exertion. Denies: Dyspnea, Cough Gastrointestinal: Denies: Abdominal pain, Nausea, Vomiting, Diarrhea, Melena, Hematochezia Genitourinary: Denies: Dysuria, Hematuria, Frequency Musculoskeletal: Reports: Neck pain, Back pain - acute upper to base of neck and trapezius bilat; chronic in low back, mild now.. Denies: Arthralgias, Swelling, Extremity Pain Skin: Denies: Rash, Abscess, Wounds Neurological: Reports: Numbness - chronic BLE, and intermittent LUE, - - no confusion. Denies: Headache, Weakness Physical Exam Vital Signs/Narrative: Vital Signs 03/16/18 11:17 98.3 F 70 17 154/73 H 98 Inital Vital Signs reviewed: Yes General: Well nourished, Well developed Head: Normocephalic, Atraumatic Eyes: Perrl, EOMI ENT: Moist mucous membranes, No rhinorrhea, TM's clear, - - POP erythemetous, symmetric, w/o exudates or tonsillomegaly Neck: No lymphadenopathy, No JVD, - - Pt resistant to move. no detectable meningismus. Cannot move chin toward chest. Negative Kernig. point tender in mid- cervical lateral right neck musculature, w/o mastoid or LN tenderness, but only in one particular spot w/o any overlying skin abn or palpable abn. Cardiovascular: Regular rate, Regular rhythm, No murmurs Respiratory: No distress, CTA bilaterally, Chest nontender, Decreased Air Movement - diffusely Abdomen: Soft, Nontender, Nondistended, Normal bowel sounds Back: Nontender, Normal Inspection Extremities: Nontender, No edema Skin: Normal color, No rash Neurological: Alert, Oriented x3, Cranial nerves II-XII grossly intact, Normal Strength, Normal Sensation Psychological: Normal affect Diagnostic/Tx/Re-eval Impressions Chest X-Ray 03/16/18 12:10 IMPRESSION: Mild increased markings at the right lung base as compared to prior study suggestive of atelectasis and/or early infiltrate. Electronically Signed: Stef Carlton MD at 12:40 EST Tel [phone], Service support , Brain CT 03/16/18 14:00 IMPRESSION: Chronic involutional changes of the brain. Electronically Signed: Stef Carlton MD at 14:35 EST Tel [phone], Service support , Cervical Spine CT 03/16/18 14:20 IMPRESSION: Multilevel degenerative changes, as described above. Electronically Signed: Stef Carlton MD at 14:43 EST Tel [phone], Service support , 03/16/18 12:10 Chest PA and Lateral [RAD] Stat 03/16/18 14:00 CT Head [Brain/Head without Contrast] [CT] Stat 03/16/18 14:20 CT Cervical [Spine Cervical without Contras] [CT] Stat 03/16/18 12:30 Mucosa - Throat Group A Streptococcus Rapid Screen - Preliminary 03/16/18 Unknown Mucosa - Nose Influenza Types A,B Direct FA ([facility]) - Final Laboratory Results - Medical Decision Making Labs are unremarkable, chest x-ray shows the possibility of atelectasis versus infiltrate in the right base, however the patient really has not had symptoms of worsening COPD and with this ambiguous finding, which the patient states he has heard before on his x-ray, I suspect he does not have pneumonia. He is not coughing currently. His symptoms were managed with a couple doses of morphine, he was sent to CT for the brain given the fact that he is on Xarelto, and cervical spine. Both were negative for any acute abnormalities. Initially, I did not realize the patient had a history of A. fib and was on Xarelto. He did nothing to explain musculoskeletal pain of this degree in his neck, and my concern with low-grade temperatures, severe headache, and neck stiffness, is that he could have developed meningitis. We were going to do a lumbar puncture until I realized that he is on Xarelto, so we decided not to. Since he is very stable clinically and hemodynamically at this time, I think that the potential risks of an epidural hematoma outweigh the potential benefits until he has undergone a few half-lives and the Xarelto is no longer in effect. The patient does not want to go home, I think it is reasonable to admit him with empiric therapy and further testing tomorrow. He is comfortable with that plan, discussed with hospitalist. ED Disposition - Plan for ED Patient: Disposition: Acute Care Hospital [facility] Chief Complaint: Back Diagnosis: Intractable headache, Neck stiffness Referrals: Stephanie Fuchs MD [Primary Care Provider] - What to do if you have Problems For any increased pain, shortness of breath, bleeding, nausea or vomiting, chest pain, or any unexpected problems, contact your Primary Care Provider. Call [facility] ([phone]) or report to the closest Emergency Room. Call 911 if necessary. 03/16/18 1139 <Electronically signed by Kelby Cantu MD> Date Kelby Cantu MD Cosigner Signature (If Indicated): Date CC: Stephanie Fuchs MD SPINE CERVICAL Observed: 03/16/2018 Status: F Source: [place] WITHOUT CONTRAS 2:20 PM [facility] [place] REPOSITORY [facility] Imaging Services [address] [place] [address] Spine Cervical without Contras MR#: [id number] Acct: [id number] Name: HUNTER HENDRICKSON Jr. Rep #: [id number] : 1940 M 77 From: Stef Carlton MD PCP: Stephanie Fuchs MD Status: REG ER Study: Spine Cervical without Contras Date of Exam: 03/16/18 Exam# [id number] Ordering Dr: Kelby Cantu MD STUDY: CT CERVICAL SPINE WITHOUT CONTRAST REASON FOR EXAM: Male, 77 years old. 2 day history of neck pain. No known injury. Prior right carotid endarterectomy and prior neck surgery. RADIATION DOSAGE (If Supplied By Facility): CTDIvol = ( 18.41 ) mGy, DLP = ( 428.76 ) mGycm TECHNIQUE: High resolution transaxial imaging was performed without contrast material. Sagittal and coronal images were reconstructed. Individualized dose optimization techniques were used for this CT. COMPARISON: Comparison is made with prior examination dated December 30, 2014. FINDINGS: Normal craniovertebral junction. There are degenerative changes of the anterior atlantoaxial articulation. Normal odontoid process. There is straightening of the normal cervical lordosis. Fusion at the C6-C7 level. C2-3: Minimal degree of disc space narrowing. Minimal posterior disc bulge. C3-4: Minimal central posterior spondylosis. This causes minimal deformity of the thecal sac. Uncovertebral arthrosis. C4-5: Moderate degree of disc space narrowing. Uncovertebral arthrosis. Facet joint osteoarthritis worse on the left side. Bilateral neural foraminal stenosis worse on the left side. C5-6: Moderate degree of disc space narrowing. Uncovertebral arthrosis. Moderate degree of bilateral neural foraminal stenosis. C6-7: Fusion at the C6-C7 level. C7-T1: Normal endplates. Normal disc height and morphology. Normal central canal and intervertebral neuroforamina. Calcification of the left carotid bifurcation. CT/Spine Cervical without Contras IMPRESSION: Multilevel degenerative changes, as described above. Electronically Signed: Stef Carlton MD at 14:43 EST Tel [phone], Service support , CC: KELBY CANTU MD; Stephanie Fuchs MD Mold Filler: Signed BRAIN/HEAD WITHOUT Observed: 03/16/2018 Status: F Source: [place] CONTRAST 2:01 PM [facility] [place] REPOSITORY [facility] Imaging Services [address] [place], [place] [address] [address] Brain/Head without Contrast MR#: [id number] Acct: [id number] Name: HUNTER HENDRICKSON Jr. Rep #: [id number] : 1940 M 77 From: Stef Carlton MD PCP: Stephanie Fuchs MD Status: REG ER Study: Brain/Head without Contrast Date of Exam: 03/16/18 Exam# [id number] Ordering Dr: Kelby Cantu MD STUDY: CT BRAIN WITHOUT CONTRAST REASON FOR EXAM: Male, 77 years old. 2 day history of neck pain and headaches. No known injury. RADIATION DOSAGE (If Supplied By Facility): CTDIvol = ( 44.99 ) mGy, DLP = ( 779.24 ) mGycm TECHNIQUE: Transaxial CT imaging of the brain was performed without administration of intravenous contrast material. Individualized dose optimization techniques were used for this CT. COMPARISON: Comparison is made with prior examination dated December 30, 2014. FINDINGS: Normal soft tissue structures. Normal calvarium. There is mild cerebral atrophy with widening of the extra- axial spaces and ventricular dilatation. There are areas of decreased attenuation within the white matter tracts of the supratentorial brain, consistent with microvascular disease changes. Stable small old lacunar infarcts in the basal ganglia bilaterally. Normal brainstem. There is mild cerebellar atrophy. There is no intracranial hemorrhage. There are no findings of an acute ischemic infarction. Normal visualized paranasal sinuses. CT/Brain/Head without Contrast IMPRESSION: Chronic involutional changes of the brain. Electronically Signed: Stef Carlton MD at 14:35 EST Tel [phone], Service support , CC: KELBY CANTU MD; Stephanie Fuchs MD Mold Filler: Signed URINALYSIS, COMPLETE Collected: 03/16/2018 Status: F Source: [place] 1:50 PM [facility] REPOSITORY Order Comment: Order Date: 03/16/18 Has pt arrived? Y How was Urine Obtained? CHEMISTRY DEPARTMENT CHAIR TO SPECIFY TYPE CODE TESTS RESULT OUT OF RANGE REFERENCE UNITS LAB L400.3000 Yellow COLOR Normal Yellow LAB L400.3050 Clear Normal CLARITY Clear LAB L400.3200 Normal mg/dl Normal GLUCOSE, UR Normal LAB L400.3300 Negative mg/dL Normal BILIRUBIN URINE Negative LAB L400.3400 Negative mg/dl High 5 KETONE UR LAB L400.3465 1.002-1.030 Normal SP.GR. DIPSTX 1.005 LAB L400.3550 5.0 - 8.0 pH UR Normal 7.0 LAB L400.3600 Negative mg/dl PROT Normal DIPSTX Negative LAB L400.3700 Normal mg/dl Normal UROBILI Normal LAB L400.3750 Negative Normal NITRITE UR Negative LAB L400.3780 Negative /ul Normal OCCULT BLOOD-UR Negative LAB L400.3800 Negative /ul High LEUK ESTERASE 100 LAB L400.4050 0-5 /hpf WBC Normal 0-5 SEEN LAB L400.4100 0-5 /hpf 0 Normal RBC-UA SEEN LAB L400.4150 0-5 /hpf SQUAM 0 Normal EPI SEEN LAB L400.4300 None Seen /hpf 0 Normal BACTERIA SEEN LAB L400.4350 <or=2+ /hpf 0 Normal MUCUS, URINE SEEN Performed By: #### L400.0001 #### [facility] [address] [place], [place], [id number] Observed: 03/16/2018 Status: F Source: [place] STREP A (THROAT 12:30 PM [facility] RAP[facility] [place]) REPOSITORY Strep A Rapid Rapid Strep A Screen NEGATIVE A Disk (Conf. Cult) Negative for Strep Group A : All NEGATIVE screens will be confirmed with a culture. Performed By: #### M100.676 #### [facility] [address] [place], [id number] CBC W/DIFF, AUTOMATED Collected: 03/16/2018 Status: F Source: [place] 11:55 AM [facility] REPOSITORY TYPE CODE TESTS RESULT OUT OF RANGE REFERENCE UNITS LAB L100.1000 4.4-11.0 K/mm3 Normal WBC 10.1 LAB L100.1200 4.6-6.2 M/mm3 Low RBC 3.83 LAB L100.1300 13.0-16.5 g/dl Low HGB 10.8 LAB L100.1400 40-54 % Low HCT 34.1 LAB L100.1500 80-94 fL Normal MCV 89.0 LAB L100.1600 27.0-32.0 pg Normal MCH 28.2 LAB L100.1700 32-36 g/gl Low MCHC 31.7 LAB L100.1810 11.6-14.6 % High RDW CV 17.0 LAB L100.1820 35.1-43.9 fl High RDW SD 54.5 LAB L100.1900 150-450 K/mm3 Normal PLT 200 LAB L100.2000 6.2-12.0 fl Normal MPV 10.9 LAB L100.2100 47-70 % High NEUT% 79.8 LAB L100.2200 19-41 % Low LY% 8.3 LAB L100.2300 0-10 % High MONO% 11.3 LAB L100.2400 0-5 % Normal EO% 0.2 LAB L100.2500 0-1 % Normal BASO% 0.1 LAB L100.2550 0.0-0.9 % Normal IM GRAN % 0.300 Result Comment: IG% - Immature Granulocytes (promyelocytes, myelocytes and metamyelocytes) > 1% indicates that a LEFT SHIFT is Present. LAB L100.2620 2.0-7.7 X10 3/uL High Absolute Neut 8.0 LAB L100.2720 0.83-4.51 X10 3/ul Normal Absolute Lymph 0.84 Performed By: #### L100.0100 #### [facility] [address] [place], [place], [address] BASIC METABOLIC Collected: 03/16/2018 Status: F Source: [place] PROFILE (BMP) 11:55 AM [facility] REPOSITORY TYPE CODE TESTS RESULT OUT OF RANGE REFERENCE UNITS LAB L501.0100 74-106 mg/dL Normal GLU 93 Result Comment: Please note revised GLUCOSE reference range effective 2017. LAB L501.1000 7-18 mg/dL Normal BUN 17 LAB L501.1100 0.70-1.30 mg/dL Normal CREAT,SERUM 1.08 Result Comment: The validity of the calculated GFR AND GFRAA in patients over 70 years has not been determined. Clinical correlation is essential. LAB L501.1110 >60 mL/min Normal EST GFR 70 Result Comment: Non- GFR Calc LAB L501.1115 >60 mL/min Normal EST GFR - AA 85 Result Comment: GFR Calc LAB L501.1255 ml/min Normal Estimated CRCL 57.27 LAB L501.1300 10-20 RATIO Normal BUN/CRE 15.7 LAB L501.2200 8.5-10 mg/dL Normal .1 CA 8.6 LAB L501.5300 136-14 mmol/L Normal 5 NA 139 LAB L501.5600 3.5-5. mmol/L Normal 1 K 3.5 LAB L501.5900 98-107 mmol/L Normal CL 106 LAB L501.6100 21.0-3 mmol/L Normal 2.0 CO2 26.0 LAB L501.6200 5-15 Normal GAP 7 Performed By: #### L500.2500 #### [facility] [address] [place], [address] CHEST PA AND LATERAL Observed: 03/16/2018 Status: F Source: [place] 11:45 AM [facility] REPOSITORY [facility] Imaging Services [address] [place] [address] Chest PA and Lateral MR#: [id number] Acct: [id number] Name: HUNTER HENDRICKSON Jr. Rep #: [id number] : 1940 M 77 From: Stef Carlton MD PCP: Stephanie Fuchs MD Status: REG ER Study: Chest PA and Lateral Date of Exam: 03/16/18 Exam# [id number] Ordering Dr: Kelby Cantu MD STUDY: X-RAY CHEST REASON FOR EXAM: Male, 77 years old. COPD. Fever. TECHNIQUE: AP and lateral views of the chest. COMPARISON: Comparison is made with prior study dated January 21, 2018. FINDINGS: EKG electrodes are seen. Elevation of the right hemidiaphragm. Increased markings at the right lung base suggestive of right basilar atelectasis and/or early infiltrate. There is no demonstrated pleural abnormality. There is borderline cardiomegaly. A left-sided dual-chamber pacemaker is seen. Normal mediastinum and elis. Normal visualized pulmonary arteries. There is atherosclerotic tortuosity of the aortic arch and descending thoracic aorta. There are diffuse degenerative changes of the visualized thoracic spine. Normal visualized ribs, clavicles, and shoulders. There is no demonstrated abnormality of the visualized soft tissue structures of the upper abdomen. RAD/Chest PA and Lateral IMPRESSION: Mild increased markings at the right lung base as compared to prior study suggestive of atelectasis and/or early infiltrate. Electronically Signed: Stef Carlton MD at 12:40 EST Tel [phone], Service support , CC: KELBY CANTU MD; Stephanie Fuchs MD Mold Filler: Signed PROTEIN SPINAL FLUID Collected: 03/16/2018 Status: F Source: [place] 9:23 AM [facility] REPOSITORY TYPE CODE TESTS RESULT OUT OF REFERENCE UNITS RANGE LAB L501.1600 15.0-45.0 mg/dL High PROTEIN CSF 67.0 Performed By: #### L501.1600 #### [facility] [address] [place], [address] Observed: 03/16/2018 Status: F Source: [place] INFLUENZA A+B (RAPID 12:00 AM [facility] [place]) REPOSITORY Order Date: 03/16/18 Has pt arrived? Y FLU A/B Rapid Negative test results should be confirmed by culture. Order Rapid Viral Culture for Influenzae A+B ([id number]) if clinically indicated. Influenza Ag, Direct Presumptive NEGATIVE for Influenza A/B Antigen (See Note) Performed By: #### M101.0101 #### [facility] [address] [place], [address] CARDIOLOGY VISIT Observed: 03/15/2018 Status: F Source: [place] REPORT 7:32 AM [facility] REPOSITORY [facility] [address] [place] [address] OFFICE VISIT Date of Service: 03/14/18 MR#: [id number] Acct: [id number] Name: HUNTER HENDRICKSON Jr. Rep #: [id number] : 1940 Provider: MARILYN Bowers Age/Sex: 77/M [place] [facility] Status: Signed HPI HPI Chief Complaint: Low Back Pain Details: HUNTER HENDRICKSON, is a 77 M who presents to the office today for a cardiovascular outpatient follow-up. He has a history of coronary artery disease status post stenting to LAD and LCx remotely, ischemic mediated cardiomyopathy, sick sinus syndrome status post pacemaker placement, PVCs/nonsustained VT, peripheral arterial occlusive disease with carotid artery disease and abdominal aortic disease, hypertension, hyperlipidemia, and autonomic dysfunction. He was admitted to [facility] for low back pain. His laboratory work revealed elevated BTNP. He was started on diuretics. He also underwent a generator change during his admission as well. He states continual fleeting chest pain. This pain comes and goes. He states continual episodes of shortness of breath when walking up steps or with exertion. Pt. denies arm, jaw, or neck discomfort. His exercise tolerance is stable, though minimal. Pt. denies symptoms of palpitations, lightheadedness, or syncopal episodes. Pt. denies edema or claudication issues. Pt. denies PND, fever, chills, blood in urine, blood in stool, or myalgia. He states sleeping on an incline d/t BiPap. He states feeling chronically tired. Intake Vital Signs03/14/18 Height 5 ft 10 in 03/14/18 Weight: 173 lb 03/14/18 Body Mass Index (BMI) 24.8 03/14/18 Blood Pressure 80/52 L Intake Visit Reasons: Congestive heart failure Skydiving Instructor Required: No Accompanied by: Is patient in pain?: Yes (mid chest through to back) Pain scale (1-10): 2 Allergies lactose Allergy (Severe, Verified 03/14/18 13:08) unknown Penicillins Allergy (Severe, Verified 03/14/18 13:08) Anaphylaxis adhesive Allergy (Verified 03/14/18 13:08) Rash Sulfa (Sulfonamide Antibiotics) Allergy (Verified 03/14/18 13:08) Unknown diazepam [From Valium] Adverse Reaction (Verified 03/14/18 13:08) hyper opposite effect desired niacin [From Niaspan Extended-Release] Adverse Reaction (Verified 03/14/18 13:08) low bp simvastatin Adverse Reaction (Verified 03/14/18 13:08) Pain in joints Medications Cholecalciferol (Vitamin D3) [Vitamin D3] 1 tab PO DAILY 06/18/17 [History Confirmed 03/14/18] Cyanocobalamin [Vitamin B12] 1 tab PO DAILY 06/18/17 [History Confirmed 03/14/18] Melatonin 10 mg PO QHS 06/18/17 [History Confirmed 03/14/18] Omeprazole 20 mg PO DAILY 06/18/17 [History Confirmed 03/14/18] Vit A/Vit C/Vit E/Zinc/Copper [Preservision Areds Softgel] 1 ea PO BID 06/18/17 [History Confirmed 03/14/18] Aspirin 81 mg PO DAILY 01/22/18 [History Confirmed 03/14/18] Acetaminophen [Tylenol] 500 mg PO HS tab 01/27/18 [Rx Confirmed 03/14/18] Donepezil HCl [Aricept] 10 mg PO QHS tab 01/27/18 [Rx Confirmed 03/14/18] Duloxetine Hcl [Cymbalta] 60 mg PO DAILY cap 01/27/18 [Rx Confirmed 03/14/18] Pregabalin [Lyrica] 300 mg PO QHS #7 01/27/18 [Rx Confirmed 03/14/18] Senna [Senokot] 1 tab PO BID tab 01/27/18 [Rx Confirmed 03/14/18] Tamsulosin HCl [Flomax] 0.4 mg PO DAILY@1730 cap 01/27/18 [Rx Confirmed 03/14/18] rivaroxaban 15 mg tablet 15 mg PO QPM #90 tab 02/07/18 [Rx Confirmed 03/14/18] oxycodone 10 mg tablet 10 mg PO Q6H PRN tab 03/14/18 [History Confirmed 03/14/18] Ejection fraction %: 50 to 54 PFSH Medical History Fever (Acute) CHF (congestive heart failure) (Acute) COPD (chronic obstructive pulmonary disease) (Acute) Pulmonary hypertension (Chronic) Intractable low back pain (Acute) Shortness of breath (Acute) Aspiration pneumonia (Resolved) Tobacco abuse (Chronic) AAA (abdominal aortic aneurysm) (Chronic) PVD (peripheral vascular disease) (Chronic) Palpitations (Acute) Long-term use of high-risk medication (Chronic) Dizziness and giddiness (Resolved) Syncope (Resolved) Cough (Resolved) Dyspnea (Acute) Bronchitis (Resolved) Stage 2 moderate COPD by GOLD classification (Chronic) Acute respiratory failure with hypoxia (Acute) Malaise and fatigue (Chronic) ARLENE (obstructive sleep apnea) (Chronic) Central sleep apnea (Chronic) Respiratory failure with hypoxia (Resolved) Unstable angina (Resolved) Chest pain (Resolved) Cardiomyopathy (Chronic) SSS (sick sinus syndrome) (Chronic) Autonomic dysfunction (Chronic) HLD (hyperlipidemia) (Chronic) PAD (peripheral artery disease) (Chronic) Acute kidney injury (Acute) Sepsis (Resolved) Community acquired pneumonia (Chronic) Coronary artery disease (Chronic) BPH (benign prostatic hypertrophy) with urinary obstruction (Chronic) Depressive disorder (Chronic) HTN (hypertension) (Chronic) Atrial fibrillation (Chronic) GERD (gastroesophageal reflux disease) (Chronic) Pacemaker (Chronic) Nephrolithiasis (Chronic) Personality disorder (Chronic) Surgical History S/P TURP (status post transurethral resection of prostate) (Resolved) pacemaker implantation (Resolved) History of inguinal hernia repair (Resolved) History of hemorrhoidectomy (Resolved) History of prostatectomy (Resolved) right ochiectomy (Resolved) History of appendectomy (Resolved) S/P PTCA (percutaneous transluminal coronary angioplasty) (Chronic) History of orchiectomy, unilateral (Chronic) Family History Father CAD (coronary artery disease) Mother Breast cancer Arthritis CAD (coronary artery disease) Hypertension Sister CVA (cerebral vascular accident) Diabetes Hypertension Son CAD (coronary artery disease) Hypertension Social History Smoking Status: Current every day smoker tobacco type: cigarettes second hand exposure: No alcohol intake: never substance use type: does not use caffeine: Yes Type: carbonated beverages Number of servings: 1 ROS Const Const: Positive for fatigue; negative for weakness, body ache, fever(s) or chills ENT ENT: Positive for dizziness (quick position changes) Cardio Chest Pain: Yes Palpitations: No Edema: Left Muscle aches with walking: None Resp Respiratory: Positive for SOB with activity (Walking up stairs and exertion); negative for SOB at rest, SOB orthopnea\SOB lying down or paroxysmal nocturnal dyspnea GI GI: Negative nausea, black,tarry stools, bright, red blood in stools or vomiting blood/hematemesis : Negative for hematuria or frequent nighttime urination/ nocturia Musc Musc: Negative for muscle aches/ myalgia Skin Skin: Negative non-healing lesions or rash Neuro Neuro: Positive for dizziness (quick position changes); negative for weakness, lightheadedness, near syncope or syncope Endo Endo: Positive for fatigue Allergy Allergy/Immunology: Negative for rash Cardiology Exam Const Appearance: cooperative, healthy appearing, comfortable and no acute distress Nutritional Appearance: average body habitus Orientation: alert, awake and oriented x3 Head Head: normal to inspection Ears: hearing grossly normal bilaterally Nose: external nose normal Face and Sinus: face symmetric Mouth: oral mucosae normal Eyes General: appearance normal, both eyes and all related structures Eyelids: eyelids normal Neck Neck: no JVD and normal visual inspection Carotids: normal carotid upstroke Chest Chest inspection: normal inspection of the chest, normal respiratory effort and symmetric chest movement; negative cough Auscultation: Bilateral: Clear to Auscultation Cardio Rate: regular rate Rhythm: regular rhythm Heart sounds: S2 normal and murmur; negative rub or gallop Murmur: Grade 2/6 and LLSB GI GI: normal to inspection Neuro General: alert, awake, oriented x3 and CN's II-XI intact bilaterally Skin Skin: no rashes or lesions noted Extremities Pulses: Normal: Right Posterior Tibial Pulse, Left Posterior Tibial Pulse, Right Radial Pulse, Left Radial Pulse Lower Extremity Edema: None: Bilateral Psych Psychological: normal affect Supplemental Info Echocardiogram from January 2018 showed an estimated ejection fraction of 55%, normal LV size, no evidence of diastolic dysfunction, RVSP of 54 mmHg, moderate pulmonary hypertension, and compared to prior study, there is no significant change. Stress test from December 2015 showed peak exercise EKG with no ST or T-wave changes and nuclear images suggestive of prior infarct, no reversible perfusion to suggest ischemia, and mild left ventricular systolic dysfunction present. Heart catheterization from September 2009 showed left main coronary artery with minimal luminal irregularities, LAD showed patent stent with minimal luminal irregularities, LCx showed patent stent with minimal luminal irregularities, and RCA showed proximal minimal luminal irregularities. Ejection fraction was reported 50%. He is advised to continue aggressive risk factor modification. Pacemaker check from January 2018 showed no MS or VT episodes, presenting rhythm of AAI pacing at 71ppm, DENTAL INSTRUCTOR=1%, AP=59%, and battery life of 10.5 years. Carotid duplex ultrasound from August 2012 showed mild (less than 50%) stenosis of right extracranial internal carotid and mild (less than 50%) stenosis of left extracranial internal carotid. Assessment AND Plan 1. Chronic diastolic congestive heart failure I50.32 diastolic Plan His echocardiogram January 2018 showed ejection fraction of 55% and no evidence of diastolic dysfunction. His recent hospitalization showed elevated BTNP. He does acknowledge improved shortness of breath since discharge. He is currently not taking diuretics at this time. His beta-scot was discontinued during his recent hospitalization. Due to ongoing fatigue and hypotension we will continue to hold the beta scot. We will continue to assess the ability to restart this. At this time, we will continue to monitor. 2. Paroxysmal atrial fibrillation I48.0 Plan His most recent pacemaker check in January 2019 showed no MS or VT episodes. His heart rate is well-controlled. At this time we will continue with current factor Xa inhibitor. His beta-blockers being held due to hypotension and fatigue. 3. SSS (sick sinus syndrome) I49.5 Plan He is status post permanent pacemaker for this. His pacemaker appears to be functioning appropriately. He will continue to follow-up with pacemaker clinic on a routine/scheduled basis. We will continue to monitor. 4. Essential hypertension I10 Plan His blood pressure was well controlled during his recent hospitalization. However, today it is low. He states this is due to lack of p.o. intake. His amlodipine was discontinued during his recent hospitalization. At this time, we will continue to monitor. 5. Coronary artery disease involving fl[place]reau coronary artery of [place] heart without angina pectoris I25.10 S/P LAD and LCx stenting Plan His stress test in December 2015 was negative for stress- induced myocardial ischemia. His chest pain appears atypical at this time. He will continue current medications and continue with lifestyle and risk factor modification. We will continue to monitor. 6. Abdominal aortic aneurysm (AAA) without rupture I71.[address] scan from January 2018 showed an infrarenal abdominal aortic aneurysm measuring 3.3 cm. His heart rate and blood pressure is well controlled. At this time we will continue to monitor. 7. Malaise and fatigue R53.81; R53.83 Plan This is patient's main concern. He states feeling no desire to engage in physical activity. At this time this is been attributed to his low back pain and questionable/possible depression. He was asked to continue to follow-up with primary care doctor for pain management and evaluation for depression. At this time we will continue to monitor. Plan Detail Additional Comments Thank you for allowing us to participate in the patient's plan of care, if you have any questions please do not hesitate to call. This note was generated using a voice recognition system and there may be incorrect words, spelling, or punctuation that were not noted upon reviewing the office note prior to saving. Coding Level of Care Code Off vis,est,level 3 Diagnoses Chronic diastolic congestive heart failure I50.32 Heart failure chronicity: chronic Heart failure type: diastolic Paroxysmal atrial fibrillation I48.0 Atrial fibrillation type: paroxysmal SSS (sick sinus syndrome) I49.5 Essential hypertension I10 Hypertension type: essential hypertension Coronary artery disease involving fl[place]re[place] coronary artery of [place] heart without angina pectoris I25.10 Associated angina: without angina Coronary Disease-Associated Artery/Lesion type: fl[place]au artery [place] vs. transplanted heart: [place] heart Abdominal aortic aneurysm (AAA) without rupture I71.4 Presence of rupture: without rupture Malaise and fatigue R53.81; R53.83 Coding Level of Care Code Off vis,est,level 3 Diagnoses Chronic diastolic congestive heart failure I50.32 Heart failure chronicity: chronic Heart failure type: diastolic Paroxysmal atrial fibrillation I48.0 Atrial fibrillation type: paroxysmal SSS (sick sinus syndrome) I49.5 Essential hypertension I10 Hypertension type: essential hypertension Coronary artery disease involving fl[place] coronary artery of [place] heart without angina pectoris I25.10 Associated angina: without angina Coronary Disease-Associated Artery/Lesion type: [place] artery [place] vs. transplanted heart: [place] heart Abdominal aortic aneurysm (AAA) without rupture I71.4 Presence of rupture: without rupture Malaise and fatigue R53.81; R53.83 03/15/18 0732 <Electronically signed by Han NG> Date Han NG Cosigner Signature: Date (if applicable) CC: Stephanie Fuchs MD BASIC METABOLIC Collected: 02/16/2018 Status: F Source: SAW PROFILE (BMP) 5:30 AM [facility] [place] REPOSITORY Order Comment: RM: 406 TYPE CODE TESTS RESULT OUT OF RANGE REFERENCE UNITS LAB L501.0100 74-106 mg/dL Normal GLU 83 Result Comment: Please note revised GLUCOSE reference range effective 2017. LAB L501.1000 7-18 mg/dL High BUN 19 LAB L501.1100 0.70-1.30 mg/dL Normal CREAT,SERUM 1.19 Result Comment: The validity of the calculated GFR AND GFRAA in patients over 70 years has not been determined. Clinical correlation is essential. LAB L501.1110 >60 mL/min Normal EST GFR 63 Result Comment: Non- GFR Calc LAB L501.1115 >60 mL/min Normal EST GFR - AA 76 Result Comment: GFR Calc LAB L501.1300 10-20 RATIO Normal BUN/CRE 16.0 LAB L501.2200 8.5-10.1 mg/dL CA Normal 8.6 LAB L501.5300 136-145 mmol/L NA Normal 142 LAB L501.5600 3.5-5.1 mmol/L K Normal 4.3 LAB L501.5900 98-107 mmol/L CL Normal 105 LAB L501.6100 21.0-32.0 mmol/L Normal CO2 31.0 LAB L501.6200 5-15 Normal GAP 6 Performed By: #### L500.2500 #### [facility] [address] [place], [address] BASIC METABOLIC Collected: 02/09/2018 Status: F Source: SAW PROFILE (BMP) 6:35 AM [facility] [place] REPOSITORY Order Comment: 406 TYPE CODE TESTS RESULT OUT OF RANGE REFERENCE UNITS LAB L501.0100 74-106 mg/dL Normal GLU 80 Result Comment: Please note revised GLUCOSE reference range effective 2017. LAB L501.1000 7-18 mg/dL High BUN 30 LAB L501.1100 0.70-1.30 mg/dL High CREAT,SERUM 1.32 Result Comment: The validity of the calculated GFR AND GFRAA in patients over 70 years has not been determined. Clinical correlation is essential. LAB L501.1110 >60 mL/min Low EST GFR 56 Result Comment: Non- GFR Calc LAB L501.1115 >60 mL/min Normal EST GFR - AA 67 Result Comment: GFR Calc LAB L501.1300 10-20 RATIO High BUN/CRE 22.7 LAB L501.2200 8.5-10.1 mg/dL CA Normal 8.7 LAB L501.5300 136-145 mmol/L NA Normal 142 LAB L501.5600 3.5-5.1 mmol/L K Normal 4.0 LAB L501.5900 98-107 mmol/L CL Normal 103 LAB L501.6100 21.0-32.0 mmol/L High CO2 33.0 LAB L501.6200 5-15 Normal GAP 6 Performed By: #### L500.2500 #### [facility] [address] [place], [address] PACEMAKER CHECK Observed: 02/04/2018 Status: F Source: SAW 2:36 PM [facility] [place] REPOSITORY [facility] [address] [place] [address] Pacemaker Check Date of Service: 02/04/18 1155 MR#: [id number] Acct: [id number] Name: HUNTER HENDRICKSON Jr. Rep #: [id number] : 1940 From: Destinee Jaime Age/Sex: 77/M [place] [facility] Status: Signed Billing Codes PM Device Codes: PM Dev Prog Eval, Dual 02/04/18 1159 <Electronically signed by Destinee Jaime > Date Destinee Jaime 02/04/18 1436<Electronically signed by Apollo Lindsey MD> Cosigner Signature: Date (if applicable) Apollo Lindsey MD CC: BASIC METABOLIC Collected: 02/02/2018 Status: F Source: SAW PROFILE (BMP) 6:05 AM [facility] [place] REPOSITORY Order Comment: [id number] TYPE CODE TESTS RESULT OUT OF RANGE REFERENCE UNITS LAB L501.0100 74-106 mg/dL Normal GLU 95 Result Comment: Please note revised GLUCOSE reference range effective 2017. LAB L501.1000 7-18 mg/dL High BUN 48 LAB L501.1100 0.70-1.30 mg/dL High CREAT,SERUM 1.66 Result Comment: The validity of the calculated GFR AND GFRAA in patients over 70 years has not been determined. Clinical correlation is essential. LAB L501.1110 >60 mL/min Low EST GFR 43 Result Comment: Non- GFR Calc LAB L501.1115 >60 mL/min Low EST GFR - AA 52 Result Comment: GFR Calc LAB L501.1300 10-20 RATIO High BUN/CRE 28.9 LAB L501.2200 8.5-10.1 mg/dL Low CA 8.0 LAB L501.5300 136-145 mmol/L NA Normal 140 LAB L501.5600 3.5-5.1 mmol/L K Normal 4.3 LAB L501.5900 98-107 mmol/L CL Normal 100 LAB L501.6100 21.0-32.0 mmol/L Normal CO2 31.0 LAB L501.6200 5-15 Normal GAP 9 Performed By: #### L500.2500 #### [facility] [address] [place], [address] CBC-COMPLETE BLOOD CNT Collected: 02/02/2018 Status: F Source: SAW NO DIFF 6:05 AM [facility] REPOSITORY Order Comment: RM406 TYPE CODE TESTS RESULT OUT OF RANGE REFERENCE UNITS LAB L100.1000 4.4-11.0 K/mm3 Normal WBC 9.8 LAB L100.1200 4.6-6.2 M/mm3 Normal RBC 4.74 LAB L100.1300 13.0-16.5 g/dl Normal HGB 13.7 LAB L100.1400 40-54 % Normal HCT 43.0 LAB L100.1500 80-94 fL Normal MCV 90.7 LAB L100.1600 27.0-32.0 pg Normal MCH 28.9 LAB L100.1700 32-36 g/gl Low MCHC 31.9 LAB L100.1810 11.6-14.6 % High RDW CV 19.2 LAB L100.1820 35.1-43.9 fl High RDW SD 61.8 LAB L100.1900 150-450 K/mm3 Normal PLT 203 LAB L100.2000 6.2-12.0 fl Normal MPV 11.4 Performed By: #### L100.0500 #### [facility] [address] [place], [address] DISCHARGE SUMMARY Observed: 01/27/2018 Status: F Source: SAW 6:18 PM [facility] REPOSITORY [facility] Medical Records Department [address] [place] [address] Discharge Summary 01/27/18 1752 MR#: [id number] Acct: [id number] Name: HUNTER HENDRICKSON Rep #: [id number] : 1940 77 From: Modesto Mclaughlin DO PCP: Stephanie Fuchs MD Status: DIS IN Y Location: [place] [id number] Discharge Date and Diagnosis Date of Admission: 01/22/18 Date of Discharge: 01/27/18 - Primary Discharge Diagnosis 1 acute low back pain secondary to degenerative disc disease lumbar spine #2 acute diastolic congestive heart failure #3 acute hypoxic respiratory failure-secondary to acute diastolic CHF with an overlay of severe COPD #4 severe COPD #5 Sick sinus syndrome with pacemaker generator malfunction #6 pulmonary hypertension #7 dementia by history #8 Coronary artery disease #9 hypertension #10 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 #11 paroxysmal atrial fibrillation #12 obstructive sleep apnea - Secondary Discharge Diagnosis Chronic Problems (Last Updated 01/24/18 @ 08:34 by Modesto Mclaughlin DO) Pulmonary hypertension (Chronic) Tobacco abuse (Chronic) AAA (abdominal aortic aneurysm) (Chronic) PVD (peripheral vascular disease) (Chronic) Long-term use of high-risk medication (Chronic) Stage 2 moderate COPD by GOLD classification (Chronic) ARLENE (obstructive sleep apnea) (Chronic) Central sleep apnea (Chronic) S/P PTCA (percutaneous transluminal coronary angioplasty) (Chronic) Cardiomyopathy (Chronic) SSS (sick sinus syndrome) (Chronic) Autonomic dysfunction (Chronic) HLD (hyperlipidemia) (Chronic) PAD (peripheral artery disease) (Chronic) Community acquired pneumonia (Chronic) Coronary artery disease (Chronic) S/P LAD and LCx stenting BPH (benign prostatic hypertrophy) with urinary obstruction (Chronic) Depressive disorder (Chronic) HTN (hypertension) (Chronic) Atrial fibrillation (Chronic) will be placed on Xarelto shortly by cardiology GERD (gastroesophageal reflux disease) (Chronic) History of orchiectomy, unilateral (Chronic) Pacemaker (Chronic) Nephrolithiasis (Chronic) Personality disorder (Chronic) Hospital Course and Treatment Operations: None Procedures: 2-D Echocardiogram, - - Pacemaker generator change Summary of Care Provided: The patient is a 77 year old M was seen in the emergency room at [facility] with a chief complaint of low back pain. Patient has a history of degenerative joint disease of the lumbar spine. He also has a complicated medical history including coronary artery disease, COPD, hypertension, sick sinus syndrome, and paroxysmal atrial fib. Evaluation in the emergency room included a CT of the abdomen which showed no acute process, a 3.3 cm infrarenal aortic aneurysm was noted, EKG showed a paced rhythm at a rate of 68. Patient's INR was subtherapeutic at 1.3. Patient's temperature was elevated at 101.4, patient's chest x-ray showed no acute process, influenza test was negative. Patient was admitted to PCU for uncontrolled low back pain and fever. Initially it was felt that the patient might have pneumonia and he was placed on IV antibiotics. I evaluated the patient subsequently and felt that he did not need IV antibiotics and a CT of the chest was performed which showed bilateral upper lobe infiltrates with a groundglass appearance as well as severe chronic obstructive pulmonary disease. Patient required supplemental oxygen up to 6 L during his hospital stay to maintain his pulse ox above 90%. Patient was seen in consultation by infectious diseases who did not feel patient had an active pneumonia, labs were obtained which did show an elevated beta natruretic peptide and there were concerns that the patient did indeed have diastolic congestive heart failure. Echocardiogram revealed a normal ejection fraction but pulmonary hypertension. Patient was seen by PT and OT due to debility. Patient was placed on IV corticosteroids for both COPD and degenerative disc disease of the lumbar spine and transitioned to oral prednisone. Finally, it was noted that the patient lost his atrial pacing on the monitor and he had a recent pacemaker check which showed a low generator, pacemaker check was performed and it showed the need for replacement of the pacemaker generator which was undertaken on 01/26/18 and went without incident. Patient was maintained on IV Lasix during his hospital stay and his oxygenation improved. Patient initially was placed back on his Coumadin but this had to be reversed with fresh frozen plasma and vitamin K when it was decided that the patient needed a pacemaker generator change. On 01/27/18, patient was seen and examined by myself and felt to be in stable condition for discharge to an extended care facility for inpatient rehab. Cardiology wish the patient to remain off anticoagulation until he was seen in follow-up at their office. It was noted that the patient's insurance plan would cover Xarelto at least partially and the patient consented to go on this medication in the near future if he needed it. Physical exam: On examination he appeared in good health and spirits. Vital signs as documented. Skin warm and dry and without overt rashes. Neck without JVD. Lungs-breath sounds are distant bilaterally, there are some fine rales at the bases on inspiration bilaterally. Heart exam notable for regular rhythm-patient is atrially paced, normal sounds and absence of murmurs, rubs or gallops. Abdomen unremarkable and without evidence of organomegaly, masses, or abdominal aortic enlargement. Extremities nonedematous. Neuro: Cranial nerves II through XII are grossly intact, no focal neurological deficits were noted. Psych: Patient was alert and oriented x3 and appeared appropriate. - Physical Exam Vital Signs Temp Pulse Resp BP Pulse Ox 97.5 F L 70 18 113/62 94 01/27/18 08:55 01/27/18 11:14 01/27/18 10:01 01/27/18 08:55 01/27/18 08:55 Oxygen Flow Rate (L/min) 2.5 Oxygen Delivery Method Nasal Cannula Weight: 83.4 kg Body Mass Index (BMI) 26.4 Intake and Output for Last 24 Hours Intake Total 2469 / 2469 590 / 590 560 / 560 Output Total 3275 / 3275 3560 / 3560 425 / 425 Balance -806 / -806 -2970 / -2970 135 / 135 Microbiology Past 72 Hours 01/21/18 23:32 Blood Culture - Final Blood Culture (Wb) - Anticubital Left No growth in 5 days. Laboratory Tests Past 24 Hrs Sodium 137 Potassium 4.2 Chloride 99 Carbon Dioxide 31.0 Anion Gap 7 Discharge Diet: No Restrictions Discharge Activity: May Not Drive Call your doctor if your incision/area has: Continuous Slow Oozing, Sudden Increased Bleeding, Increased Pain/ Swelling, Increased Redness, Foul Smelling Discharge, Swelling at the incision site Call your doctor if you observe: Fever of 101 or Higher, Shortness of breath, Dizziness, Fainting spells, Swelling in the ankles, Chest pain, Prolonged hiccoughing, Increased palpitations (irregular heartbeat) Suture Line Care: Avoid Pulling/Pushing, Avoid Pinching/Bending Cleanse incision/area with: Do not get Incision Wet, Keep Dressing Clean AND Dry Additional Dressing/Incision Instructions:: When dressing is removed, wash and dry incision. Keep covered with a light bandage if it is rubbing against your clothing. Do not cover the incision with an airtight bandage. Change the bandage daily. Do not remove steri strips. The strips will fall off on their own. Home Medications: Medications to take at Discharge Atorvastatin Calcium [Lipitor] 40 mg PO QHS 06/18/17 Cholecalciferol (Vitamin D3) [Vitamin D3] 1 tab PO DAILY 06/18/17 Cyanocobalamin [Vitamin B12] 1 tab PO DAILY 06/18/17 Melatonin 10 mg PO QHS 06/18/17 Omeprazole 20 mg PO DAILY 06/18/17 Vit A/Vit C/Vit E/Zinc/Copper [Preservision Areds Softgel] 1 ea PO BID 06/18/17 Aspirin 81 mg PO DAILY 01/22/18 Budesonide/Formoterol 160/4.5 [Symbicort 160/4.5 Mcg Inhaler (SP)] 2 puff INHALATION BID 01/22/18 Acetaminophen [Tylenol] 500 mg PO HS tablet 01/27/18 Albuterol Aerosols [Ventolin Aerosols] 2.5 mg INHALATION Q2H PRN PRN vial.neb. 01/27/18 Donepezil HCl [Aricept] 10 mg PO QHS tablet 01/27/18 Duloxetine Hcl [Cymbalta] 60 mg PO DAILY capsule 01/27/18 Furosemide [Lasix] 40 mg PO BIDLX #1 tablet 01/27/18 Ipratropium/Albuterol Sulfate [Duoneb] 3 ml INHALATION Q6HWA.RT ampul.neb 01/27/18 Oxycodone [Oxyir] 10 mg PO Q6H PRN PRN 7 Days #30 tab 01/27/18 Potassium Chloride [K-Dur] 20 meq PO BIDCM tablet 01/27/18 Prednisone 10 mg PO UD #30 tablet 01/27/18 Pregabalin [Lyrica] 100 mg PO DAILY #0 01/27/18 Pregabalin [Lyrica] 300 mg PO QHS #7 01/27/18 Senna [Senokot] 1 tablet PO BID tablet 01/27/18 Tamsulosin HCl [Flomax] 0.4 mg PO DAILY@1730 capsule 01/27/18 Following Prescrptions Were Given to Patient: Oxycodone [Oxyir] 10 mg PO Q6H PRN PRN 7 Days #30 tab PRN Reason: Moderate Pain (4-5/10) Furosemide [Lasix] 40 mg PO BIDLX #1 tablet Prednisone 10 mg PO UD #30 tablet Primary Care Physician: Stephanie Fuchs MD [Primary Care Provider] - Please follow up with your Primary Care Physician in: in 3 weeks When: PACER CLINIC Wednesday 10;30 AM Please Follow Up With: Pacer check Please Follow Up With: Clint Skinner MD When: call office for appointment Please Follow Up With: Apollo Lindsey MD When: call office for appointment Additional Instructions: Signs and Symptoms to Report to Your Doctor at Once - call your doctor's office or Doctor's Registry ([phone]) Call 911 or go to the nearest Emergency Department if you feel you need urgent care. *Infection (fever, increased redness or swelling at the incision site, drainage from the incision increased pain at the pacemaker site) *Shortness of breath *Dizziness *Fainting spells *Swelling in the ankles *Chest pain *Prolonged hiccoughing *Increased palpitaitons (irregular heartbeat) Medications: Take your pain medication as directed. Refer to your discharge instruction sheet for a list of medications you are to take. Disposition: Intermediate facility Minutes spent on discharge:: 32 Patient Condition:: Stable Medical Necessity - Tobacco Use Smoking Status: Current every day smoker Tobacco Use: Cigarettes Meaningful Use Info Meaningful Use Diagnoses (Choose all that apply): CHF - CHF GEETA/ARB ordered at discharge?: No Reason GEETA/ARB not ordered?: Allergy - Patient's ejection fraction is normal Documented LVEF (%): 55 Code Visit Inpatient E AND M: [id number] Disch Hosp 01/27/181817 <Electronically signed by Modesto Mclaughlin DO> Date Modesto Mclaughlin DO Cosigner Signature (if applicable): Date CC: Stephanie Fuchs MD; Modesto Mclaughlin DO Signed 12 LEAD ELECTROCARDIOGRAM Observed: 01/27/2018 Status: F Source: SAW 2:03 PM [facility] REPOSITORY [facility] Cardiovascular Services [address] [place] [address] 12 Lead EKG 01/26/18 0532 MR#: [id number] Acct: [id number] Name: HUNTER HENDRICKSON Jr. Rep #: [id number] : 1940 77 From: Apollo Lindsey MD Attending Dr: Modesto Mclaughlin DO Status: ADM IN Ordering Dr: Clint Skinner MD Date: 01/26/18 Location: [facility] Sex: M C Admitted: 01/22/18 Test Reason : AM EKG Blood Pressure : / mmHG Vent. Rate : 065 BPM Atrial Rate : 085 BPM P-R Int : 000 ms QRS Dur : 158 ms QT Int : 476 ms P-R-T Axes : 000 -66 094 degrees QTc Int : 495 ms Ventricular-paced rhythm Abnormal ECG Confirmed by MARCELL HANEY, APOLLO ([id number]), film and video editor GUERITA ONEILL ([id number]) on 01/27/2018 2:02:39 PM Referred By: GENNY Confirmed By:APOLLO LINDSEY MD 01/27/18 1402 Date Apollo Lindsey MD CC: Clint Skinner MD; Stephanie Fuchs MD; Modesto Mclaughlin DO Signed TRANSFER TO [facility] Observed: 01/27/2018 Status: F Source: [facility] 12:02 PM [facility] REPOSITORY [facility] Medical Records Department [address] [place] [address] [facility] MR#: [id number] Acct: [id number] Name: HUNTER HENDRICSKON Jr. Rep #: [id number] : 1940 77 From: Modesto Mclaughlin DO PCP: Stephanie Fuchs MD Status: ADM IN HUNTER HENDRICKSON Jr. (Patient) (Health Ins. Claim No.) (Day of Discharge to Facility) Certification of patient admission REQUIRED AT TIME OF ADMISSION. I CERTIFY THAT POST-HOSPITAL [facility] SERVICES ARE REQUIRED TO BE GIVEN ON AN IN-PATIENT BASIS BECAUSE OF THE ABOVE NAMED PATIENT'S NEED FOR [facility] CARE ON A CONTINUING BASIS FOR THE CONDITION(S) FOR WHICH HE/SHE WAS RECEIVING IN-PATIENT HOSPITAL SERVICES PRIOR TO HIS/HER TRANSFER TO THE [facility]. 01/27/18 1202 <Electronically signed by Modesto Mclaughlin DO> Date Modesto Mclaughlin DO - Diet 01/26/18 13:06 Diet: Cardiac/Low Cholesterol Is pt able to select menu?: Yes - Routine Orders/Code Status O2 Liters per Minute: 3 O2 Frequency: patient to use own CPAP when sleeping Code Status: DNRCC-A - Wound(s) L ELBOW Wound Type: SCAB L upper chest Wound Type: Surgical Incision Dressing Change: no dressing change - Therapies Weight Bearing: Full weight bearing Physical Therapy: Eval and Treat Occupational Therapy: Eval and Treat - Problem/Diagnosis (1) CHF (congestive heart failure) Status: Acute Comment: diastolic Current Visit: Yes (2) COPD (chronic obstructive pulmonary disease) Status: Acute Current Visit: Yes (3) Intractable low back pain Status: Acute Current Visit: No (4) Stage 2 moderate COPD by GOLD classification Status: Chronic Current Visit: No (5) Acute respiratory failure with hypoxia Status: Acute Current Visit: No (6) HLD (hyperlipidemia) Status: Chronic Current Visit: No (7) HTN (hypertension) Status: Chronic Current Visit: No (8) Pulmonary hypertension Status: Chronic Current Visit: Yes (9) ARLENE (obstructive sleep apnea) Status: Chronic Current Visit: No (10) SSS (sick sinus syndrome) Status: Chronic Current Visit: No (11) Atrial fibrillation Status: Chronic Comment: will be placed on Xarelto shortly by cardiology Current Visit: No - Allergies/Procedures Done in Hospital Allergies/Adverse Reactions: Allergies lactose Allergy (Severe, Verified 01/21/18 23:13) unknown Penicillins Allergy (Severe, Verified 01/21/18 23:13) Anaphylaxis adhesive Allergy (Verified 01/21/18 23:13) Rash Sulfa (Sulfonamide Antibiotics) Allergy (Verified 01/21/18 23:13) Unknown diazepam [From Valium] Adverse Reaction (Verified 01/21/18 23:13) hyper opposite effect desired HYPER OPPOSITE EFFECT DESIRED niacin [From Niaspan Extended-Release] Adverse Reaction (Verified 01/21/18 23:13) low bp LOW BP simvastatin Adverse Reaction (Verified 10/05/18 23:13) Pain in joints Procedures: 2-D Echocardiogram, - - pacer generator change - Type of Care/Length of Stay Estimated LOS: Convalescent Care Less Than 30 days Type of Care Needed: Skilled Rehab Potential: Good Prognosis: Good - Additional Orders/Day of Discharge H AND P will serve as current which was dated: 01/22/18 Day of Discharge: 01/27/18 - Follow Up Care Primary Care Physician: Stephanie Fuchs MD [Primary Care Provider] - Please follow up with your Primary Care Physician in: in 3 weeks When: PACER CLINIC Wednesday 10;30 AM Please Follow Up With: Pacer check Please Follow Up With: Clint Skinner MD When: call office for appointment Please Follow Up With: Apollo Lindsey MD When: call office for appointment 01/27/18 1202 <Electronically signed by Modesto Mclaughlin DO> Date Modesto Mclaughlin DO CC: Stephanie Fuchs MD; Apollo Lindsey MD; Jake Ley MD Signed BASIC METABOLIC Collected: 01/27/2018 Status: F Source: [place] PROFILE (BMP) 5:50 AM [facility] REPOSITORY TYPE CODE TESTS RESULT OUT OF RANGE REFERENCE UNITS LAB L501.0100 74-106 mg/dL High GLU 117 Result Comment: Fasting Glucose result from 100 to 125 mg/dL suggests IMPAIRED HOMEOSTASIS per A.D.A. criteria. Please note revised GLUCOSE reference range effective 2017. LAB L501.1000 7-18 mg/dL High BUN 36 LAB L501.1100 0.70-1.30 mg/dL High CREAT,SERUM 1.38 Result Comment: The validity of the calculated GFR AND GFRAA in patients over 70 years has not been determined. Clinical correlation is essential. LAB L501.1110 >60 mL/min Low EST GFR 53 Result Comment: Non- GFR Calc LAB L501.1115 >60 mL/min Normal EST GFR - AA 64 Result Comment: GFR Calc LAB L501.1255 ml/min Normal Estimated CRCL 44.82 LAB L501.1300 10-20 RATIO High BUN/CRE 26.1 LAB L501.2200 8.5-10 mg/dL Normal .1 CA 8.8 LAB L501.5300 136-14 mmol/L Normal 5 NA 137 LAB L501.5600 3.5-5. mmol/L Normal 1 K 4.2 LAB L501.5900 98-107 mmol/L Normal CL 99 LAB L501.6100 21.0-3 mmol/L Normal 2.0 CO2 31.0 LAB L501.6200 5-15 Normal GAP 7 Performed By: #### L500.2500 #### [facility] [address] [facility] [place], [address] DISCHARGE INSTRUCTION Observed: 01/26/2018 Status: F Source: [place] 12:57 PM [facility] REPOSITORY [facility] Medical Records Department [address] [place] [address] Instructions for Home/Discharge Instructions 01/26/18 1255 MR#: [id number] Acct: [id number] Name: HENDRICKSONHUNTER H Jr. Rep #: [id number] : 1940 77 From: Clint Skinner MD PCP: Stephanie Fuchs MD Status: ADM IN Discharge Diet: No Restrictions Discharge Activity: May Not Drive Call your doctor if your incision/area has: Continuous Slow Oozing, Sudden Increased Bleeding, Increased Pain/ Swelling, Increased Redness, Foul Smelling Discharge, Swelling at the incision site Call your doctor if you observe: Fever of 101 or Higher, Shortness of breath, Dizziness, Fainting spells, Swelling in the ankles, Chest pain, Prolonged hiccoughing, Increased palpitations (irregular heartbeat) Suture Line Care: Avoid Pulling/Pushing, Avoid Pinching/Bending Cleanse incision/area with: Do not get Incision Wet, Keep Dressing Clean AND Dry Additional Dressing/Incision Instructions:: When dressing is removed, wash and dry incision. Keep covered with a light bandage if it is rubbing against your clothing. Do not cover the incision with an airtight bandage. Change the bandage daily. Do not remove steri strips. The strips will fall off on their own. Additional Instructions: Signs and Symptoms to Report to Your Doctor at Once - call your doctor's office or Doctor's Registry ([phone]) Call 911 or go to the nearest Emergency Department if you feel you need urgent care. *Infection (fever, increased redness or swelling at the incision site, drainage from the incision increased pain at the pacemaker site) *Shortness of breath *Dizziness *Fainting spells *Swelling in the ankles *Chest pain *Prolonged hiccoughing *Increased palpitaitons (irregular heartbeat) Medications: Take your pain medication as directed. Refer to your discharge instruction sheet for a list of medications you are to take. Allergies/Adverse Reactions: Allergies lactose Allergy (Severe, Verified 01/21/18 23:13) unknown Penicillins Allergy (Severe, Verified 01/21/18 23:13) Anaphylaxis adhesive Allergy (Verified 01/21/18 23:13) Rash Sulfa (Sulfonamide Antibiotics) Allergy (Verified 01/21/18 23:13) Unknown diazepam [From Valium] Adverse Reaction (Verified 01/21/18 23:13) hyper opposite effect desired HYPER OPPOSITE EFFECT DESIRED niacin [From Niaspan Extended-Release] Adverse Reaction (Verified 01/21/18 23:13) low bp LOW BP simvastatin Adverse Reaction (Verified 01/21/18 23:13) Pain in joints Medications to take at Discharge Acetaminophen/Diphenhydramine [Tylenol Pm Ex-Strength Caplet] 500 mg PO QHS 06/18/17 Amlodipine [Norvasc] 2.5 mg PO QHS 06/18/17 Atorvastatin Calcium [Lipitor] 40 mg PO QHS 06/18/17 Cholecalciferol (Vitamin D3) [Vitamin D3] 1 tab PO DAILY 06/18/17 Cyanocobalamin [Vitamin B12] 1 tab PO DAILY 06/18/17 Donepezil HCl 5 mg PO DAILY 06/18/17 Melatonin 10 mg PO QHS 06/18/17 Metoprolol Tartrate 25 mg PO BID 06/18/17 Omeprazole 20 mg PO DAILY 06/18/17 Pregabalin [Lyrica] 300 mg PO QHS 06/18/17 Sertraline HCl [Zoloft] 25 mg PO BID 06/18/17 Vit A/Vit C/Vit E/Zinc/Copper [Preservision Areds Softgel] 1 ea PO BID 06/18/17 Warfarin [Coumadin (PBKC)] 2 - 2.5 mg PO DAILY 06/18/17 Aspirin 81 mg PO DAILY 01/22/18 Budesonide/Formoterol 160/4.5 [Symbicort 160/4.5 Mcg Inhaler (SP)] 2 puff INHALATION BID 01/22/18 Duloxetine Hcl [Cymbalta] 30 mg PO DAILY 01/22/18 Pregabalin [Lyrica] 100 mg PO DAILY 01/22/18 Primary Care Physician: Stephanie Fuchs MD [Primary Care Provider] - Test Results: Test results from this visit will be discussed in further detail at your follow-up appointment, if applicable. When: [facility] Wednesday;30 AM 01/26/18 1257 <Electronically signed by Clint Skinner MD> Date Clint Skinner MD CC: Stephanie Fuchs MD; Apollo Lindsey MD; Jake Ley MD CBC W/DIFF, AUTOMATED Collected: 01/26/2018 Status: F Source: SAW 5:22 AM [facility] REPOSITORY TYPE CODE TESTS RESULT OUT OF RANGE REFERENCE UNITS LAB L100.1000 4.4-11.0 K/mm3 Normal WBC 8.3 LAB L100.1200 4.6-6.2 M/mm3 Low RBC 3.59 LAB L100.1300 13.0-16.5 g/dl Low HGB 10.5 LAB L100.1400 40-54 % Low HCT 32.7 LAB L100.1500 80-94 fL Normal MCV 91.1 LAB L100.1600 27.0-32.0 pg Normal MCH 29.2 LAB L100.1700 32-36 g/gl Normal MCHC 32.1 LAB L100.1810 11.6-14.6 % High RDW CV 18.5 LAB L100.1820 35.1-43.9 fl High RDW SD 60.6 LAB L100.1900 150-450 K/mm3 Low PLT 139 LAB L100.2000 6.2-12.0 fl Normal MPV 12.0 LAB L100.2100 47-70 % High NEUT% 82.1 LAB L100.2200 19-41 % Low LY% 11.5 LAB L100.2300 0-10 % Normal MONO% 6.2 LAB L100.2400 0-5 % Normal EO% 0.0 LAB L100.2500 0-1 % Normal BASO% 0.0 LAB L100.2550 0.0-0.9 % Normal IM GRAN % 0.200 Result Comment: IG% - Immature Granulocytes (promyelocytes, myelocytes and metamyelocytes) > 1% indicates that a LEFT SHIFT is Present. LAB L100.2620 2.0-7.7 X10 3/uL Normal Absolute Neut 6.8 LAB L100.2720 0.83-4.51 X10 3/ul Normal Absolute Lymph 0.95 Performed By: #### L100.0100 #### [facility] [address] [place], [address] BASIC METABOLIC Collected: 01/26/2018 Status: F Source: [place] PROFILE (BMP) 5:22 AM [facility] REPOSITORY TYPE CODE TESTS RESULT OUT OF RANGE REFERENCE UNITS LAB L501.0100 74-106 mg/dL High GLU 113 Result Comment: Fasting Glucose result from 100 to 125 mg/dL suggests IMPAIRED HOMEOSTASIS per A.D.A. criteria. Please note revised GLUCOSE reference range effective 2017. LAB L501.1000 7-18 mg/dL High BUN 30 LAB L501.1100 0.70-1.30 mg/dL High CREAT,SERUM 1.45 Result Comment: The validity of the calculated GFR AND GFRAA in patients over 70 years has not been determined. Clinical correlation is essential. LAB L501.1110 >60 mL/min Low EST GFR 50 Result Comment: Non- GFR Calc LAB L501.1115 >60 mL/min Normal EST GFR - AA 60 Result Comment: GFR Calc LAB L501.1255 ml/min Normal Estimated CRCL 42.65 LAB L501.1300 10-20 RATIO High BUN/CRE 20.7 LAB L501.2200 8.5-10 mg/dL Normal .1 CA 8.8 LAB L501.5300 136-14 mmol/L Normal 5 NA 142 LAB L501.5600 3.5-5. mmol/L Normal 1 K 4.3 LAB L501.5900 98-107 mmol/L Normal CL 101 LAB L501.6100 21.0-3 mmol/L Normal 2.0 CO2 32.0 LAB L501.6200 5-15 Normal GAP 9 Performed By: #### L500.2500 #### [facility] [address] [place], [address] PROTHROMBIN TIME W/INR Collected: 01/26/2018 Status: F Source: SAW 5:22 AM [facility] REPOSITORY TYPE CODE TESTS RESULT OUT OF RANGE REFERENCE UNITS LAB L300.4150 11.7-14.9 SECONDS High PROTIME 15.9 LAB L300.4200 Normal INR 1.3 Performed By: #### L300.3900, L300.4310 #### [facility] [address] [place], [address] PARTIAL THROMBOPLAST Collected: 01/26/2018 Status: F Source: [place] TIME 5:22 AM [facility] REPOSITORY TYPE CODE TESTS RESULT OUT OF RANGE REFERENCE UNITS LAB L300.4310 24.1-36.2 Seconds Normal PTT 35.4 Performed By: #### L300.3900, L300.4310 #### [facility] [place], [address] PROTHROMBIN TIME W/INR Collected: 01/25/2018 Status: F Source: SAW 9:29 PM [facility] REPOSITORY TYPE CODE TESTS RESULT OUT OF RANGE REFERENCE UNITS LAB L300.4150 11.7-14.9 SECONDS High PROTIME 17.8 LAB L300.4200 Normal INR 1.5 Performed By: #### L300.3900 #### [facility] [place], [address] CONSULTATION Observed: 01/25/2018 Status: F Source: [place]W 6:27 PM [facility] REPOSITORY [facility] Medical Records Department [address] [place] [address] Consultation 01/25/18 1805 MR#: [id number] Acct: [id number] Name: HUNTER HENDRICKSON Jr. Rep #: [id number] : 1940 77 From: Apollo Lindsey MD PCP: Stephanie Fuchs MD Status: ADM IN Y Location: [place] [id number] Problem List (1) CHF (congestive heart failure) Status: Acute Qualifiers: Heart failure type: diastolic (2) Coronary artery disease Status: Chronic Comment: S/P LAD and LCx stenting (3) S/P PTCA (percutaneous transluminal coronary angioplasty) Status: Chronic (4) Cardiomyopathy Status: Chronic Qualifiers: Cardiomyopathy type: ischemic Qualified Code(s): I25.5 - Ischemic cardiomyopathy (5) SSS (sick sinus syndrome) Status: Chronic (6) Atrial fibrillation Status: Chronic (7) pacemaker implantation Status: Resolved (8) PVD (peripheral vascular disease) Status: Chronic (9) Autonomic dysfunction Status: Chronic (10) HLD (hyperlipidemia) Status: Chronic (11) HTN (hypertension) Status: Chronic Qualifiers: Hypertension type: essential hypertension Qualified Code(s): I10 - Essential (primary) hypertension (12) COPD (chronic obstructive pulmonary disease) Status: Acute Qualifiers: COPD type: COPD with acute exacerbation Qualified Code(s): J44.1 - Chronic obstructive pulmonary disease with (acute) exacerbation Reason for Consult Date of Consultation: 01/25/18 History of Present Illness: The patient is a 77 year old white male with a past cardiovascular history which is included underlying CAD, PA, PCI, ischemic mediated cardiomyopathy, sick sinus syndrome, atrial fibrillation, permanent pacemaker placement, PAD, autonomic dysfunction, hyperlipidemia, hypertension, and COPD who is referred for concerns of CHF in the setting of COPD exacerbation as well as permanent pacemaker dysfunction with loss of atrial pacing and subsequent VVI mode for further evaluation and care and consideration to PPM generator change. The patient presented with symptoms of shortness of breath and dyspnea. There have been concerns of an underlying acute infectious disease process superimposed upon a COPD exacerbation. He has undergone evaluation by internal medicine and infectious disease. He did receive antibiotic therapy and IV corticosteroid therapy. At the present time based upon his infectious disease evaluation he is no longer on antibiotic therapy and he is being monitored. However based upon his concerns he also underwent evaluation for possible CHF. A BNP level was performed which was abnormal. A transthoracic echocardiogram was performed which was reported as demonstrating the left ventricle to be preserved with respect to overall LV systolic function despite left ventricular regional wall motion abnormalities with a reported LVEF of 55%. There was a comment of no obvious diastolic dysfunction. There was also a comment of elevated pulmonary artery systolic pressure. He was treated with IV diuretic therapy. He has had some improvement in his respiratory status. During this time he also went through permanent pacemaker evaluation. It was noted he was no longer atrial pacing as he has done in the past. He was in a VVI mode. Thus there was concern without his atrial kick his clinical status may have altered and contributed to what appears to be concerns of his volume overload and shortness of breath. He has denied ongoing chest discomfort. He has had chronic shortness of breath and dyspnea at rest and with exertion. He has had no obvious lower extremity peripheral pitting edema. There is been no near syncope or syncope. He states his clinical status declined to the point where he was crawling out of his house, onto his porch, to smoke a cigarette and then subsequently crawling back into the house. This is when he noticed his clinical status markedly declined and he required further evaluation care. Thus he presented to the hospital. His troponin I level was negative. His cardiac rhythm has demonstrated an underlying electronic ventricular paced rhythm. [] Past Medical History Allergies/Adverse Reactions: Allergies lactose Allergy (Severe, Verified 01/21/18 23:13) unknown Penicillins Allergy (Severe, Verified 01/21/18 23:13) Anaphylaxis adhesive Allergy (Verified 01/21/18 23:13) Rash Sulfa (Sulfonamide Antibiotics) Allergy (Verified 01/21/18 23:13) Unknown diazepam [From Valium] Adverse Reaction (Verified 01/21/18 23:13) hyper opposite effect desired HYPER OPPOSITE EFFECT DESIRED niacin [From Niaspan Extended-Release] Adverse Reaction (Verified 01/21/18 23:13) low bp LOW BP simvastatin Adverse Reaction (Verified 01/21/18 23:13) Pain in joints Home Medications: Ambulatory Orders Medication Instructions Recorded Acetaminophen/Diphenhydramine 500 mg PO QHS 06/18/17 [Tylenol Pm Ex-Strength Caplet] Amlodipine [Norvasc] 2.5 mg PO QHS 06/18/17 Atorvastatin Calcium [Lipitor] 40 mg PO QHS 06/18/17 Past Medical History (Chronic Problems): Chronic Problems (Last Updated 01/24/18 @ 08:34 by Modesto Mclaughlin DO) Tobacco abuse (Chronic) AAA (abdominal aortic aneurysm) (Chronic) PVD (peripheral vascular disease) (Chronic) Long-term use of high-risk medication (Chronic) Stage 2 moderate COPD by GOLD classification (Chronic) ARLENE (obstructive sleep apnea) (Chronic) Central sleep apnea (Chronic) S/P PTCA (percutaneous transluminal coronary angioplasty) (Chronic) Cardiomyopathy (Chronic) SSS (sick sinus syndrome) (Chronic) Autonomic dysfunction (Chronic) HLD (hyperlipidemia) (Chronic) PAD (peripheral artery disease) (Chronic) Community acquired pneumonia (Chronic) Coronary artery disease (Chronic) S/P LAD and LCx stenting BPH (benign prostatic hypertrophy) with urinary obstruction (Chronic) Depressive disorder (Chronic) HTN (hypertension) (Chronic) Atrial fibrillation (Chronic) GERD (gastroesophageal reflux disease) (Chronic) History of orchiectomy, unilateral (Chronic) Pacemaker (Chronic) Nephrolithiasis (Chronic) Personality disorder (Chronic) Surgical History: angioplasty, appendectomy, cholecystectomy, herniorrhaphy Psychiatric History: Depression - *Family History Paternal Family History: Family History (Last Reviewed 01/22/18 @ 06:23 by Josiah Squires MD) Father CAD (coronary artery disease) Mother Breast cancer Arthritis CAD (coronary artery disease) Hypertension Sister CVA (cerebral vascular accident) Diabetes Hypertension Son CAD (coronary artery disease) Hypertension History Items: Heart Disease, Renal Disease Sibling Family History: Family History (Last Reviewed 01/22/18 @ 06:23 by Josiah Squires MD) Father CAD (coronary artery disease) Mother Breast cancer Arthritis CAD (coronary artery disease) Hypertension Sister CVA (cerebral vascular accident) Diabetes Hypertension Son CAD (coronary artery disease) Hypertension History Items: Diabetes, Heart Disease Offspring Family History: Family History (Last Reviewed 01/22/18 @ 06:23 by Josiah Squires MD) Father CAD (coronary artery disease) Mother Breast cancer Arthritis CAD (coronary artery disease) Hypertension Sister CVA (cerebral vascular accident) Diabetes Hypertension Son CAD (coronary artery disease) Hypertension History Items: Heart Disease Maternal Family History: Family History (Last Reviewed 01/22/18 @ 06:23 by Josiah Squires MD) Father CAD (coronary artery disease) Mother Breast cancer Arthritis CAD (coronary artery disease) Hypertension Sister CVA (cerebral vascular accident) Diabetes Hypertension Son CAD (coronary artery disease) Hypertension History Items: Cancer, Heart Disease Lives: Spouse/ Significant Other Smoking Status: Current every day smoker Alcohol: Occasional Drugs: None Review of Systems - Review of Systems General: Denies: Fatigue, Night Sweats Cardiovascular: Reports: Shortness of Breath, Shortness of Breath at Rest, Shortness of Breath with Exertion. Denies: Chest Discomfort, Orthopnea, PND, Peripheral Edema, Palpitations, Lightheadedness, Dizziness, Near Syncope, Syncope Respiratory: Reports: Shortness of Breath. Denies: Sputum Production, Hemoptysis Gastrointestinal: Denies: Hematemesis, Hematochezia, Melena Genitourinary: Denies: Dysuria, Hematuria Skin: Denies: Rash Subjectve: This is a thin 77-year-old white male who appears to be resting reasonably comfortably at the moment in no acute distress. Objective: Vital Signs Temp Pulse Resp BP Pulse Ox 98.1 F 67 18 115/61 92 01/25/18 17:53 01/25/18 17:53 01/25/18 17:53 01/25/18 17:53 01/25/18 17:53 Oxygen Flow Rate (L/min) 4 Oxygen Delivery Method Nasal Cannula Weight: 183 lb 13.848 oz Body Mass Index (BMI) 26.4 Intake and Output for Last 24 Hours Intake Total 534 / 534 480 / 480 620 / 620 Output Total 1999 175 / 175 Balance -1466 / -1466 480 / 480 445 / 445 General: Awake, Alert, Oriented x 3, Cooperative, No Acute Distress HEENT: Atraumatic, Normocephalic, PERRL, EOMI, Sclera Non Icteric Oral: Moist Mucosa Neck: Supple, Good ROM, No JVD Lungs: Rhonchi, Expiratory Wheezes-Lukas Cardiovascular: Regular Rhythm, Normal S1, Normal S2 Abdomen: Bowel Sounds Present, Soft, Non Tender Extremities: No edema, - - Left lower extremity ecchymoses Neurological: No Focal Motor or Sensory Deficit Psych/Mental Status: Appropriate, Normal Affect 01/25/18 06:22: Sodium 143, Potassium 4.4, Chloride 110 H, Carbon Dioxide 25.0, Anion Gap 8, BUN 25 H, Creatinine 1.28, Est GFR (MDRD) Af Amer 70, Est GFR (MDRD) Non-Af 58 L, BUN/Creatinine Ratio 19.5, Glucose 111 H, Calcium 8.4 L 01/25/18 09:18: PT 35.3 H, INR 3.5 H* Rhythm: Electronic ventricular paced rhythm ECHO: 01/24/2018: Left ventricle with left ventricular regional wall motion abnormalities with hypokinesis of the mid anterior septum and mid inferior septum and akinesis of the apex with a reported LVEF 55%; mild biatrial enlargement; moderate TR; estimated RV systolic pressure 54 mmHg; no report of diastolic dysfunction Stress Test: 03/16/2017: Pharmacologic stress nuclear imaging study: Report being compatible with an area of previous myocardial injury/infarction involving portions of the distal anterior, distal anteroseptal, apical segments, without myocardial perfusion changes considered diagnostic for associated stress-induced myocardial ischemia, gated LVEF of 50% Cardiac Cath: 10/15/2009: [facility]: Left ventricle with severe hypokinesis to akinesis of the anteroapical and inferoapical segments with an estimated LVEF 50%; left main coronary artery normal; LAD mid stented segment patent with minimal luminal irregularity; LCx first OM stented with minimal luminal irregularities; RCA being a moderate to large vessel with proximal minimal luminal irregularities PCI: 07/20/2007: [facility]: OM1 PTCA/stent PPM: [employer]: Sensia: Model number: SDR 01: Serial number: [id number]: Date implanted: 02/02/2008: Dual-chamber pacemaker Chest CT scan: 01/24/2018: IMPRESSION: Bilateral upper lobe pneumonia left greater than right. Centrilobular emphysema. Next line old myocardial infarction. A few scattered pulmonary nodules are nonspecific. Follow- up is recommended according to the ACR lung RADS criteria and/or the Fleischner Society Criteria in the setting of smoking history. Annual low dose screening chest CT scan recommended. Assessment/Plan 1. Congestive heart failure: Consideration for acute diastolic mediated The patient does have left ventricular wall motion abnormalities but overall preserved LV systolic function. There is concern, despite his echocardiographic report, that his findings are compatible with a combination of diastolic mediated CHF as well as loss of his atrial kick . This will be superimposed upon his noncardiovascular issues with concerns of an underlying COPD exacerbation. From a cardiac standpoint he will continue to be monitored. He will continue medical therapy. This includes IV diuretics. He will also be considered for permanent pacemaker generator change in the hopes of regaining his atrial kick and potentially his overall cardiovascular efficiency. 2. CAD status post PCI He has had no evidence of acute coronary syndrome or myocardial injury/infarction. He will need to continue risk factor modification medical therapy as tolerated once his clinical course stabilizes. 3. Sick sinus syndrome/paroxysmal atrial fibrillation status post permanent pacemaker placement Patient does have concerns of underlying sick sinus syndrome with paroxysmal afibrillation. He is status post permanent pacemaker placement. At the present time his rate control therapy with respect to beta blockers are on hold during his acute evaluation. His anticoagulants are on hold noting his need for an upcoming permanent pacemaker generator change. Based upon his elevated INR level he is receiving reversal agents with vitamin K and FFP. If his clinical status is considered stable and his INR is considered stable then he will undergo permanent pacemaker generator change potentially on 01/26/2018. 4. PAD The patient does have a history of underlying PAD. This can be reassessed as deemed appropriate. 5. Autonomic dysfunction The patient has a history of autonomic dysfunction. He has been evaluated locally and at a tertiary care center for this. He has attempted to maintain adequate hydration, adjustment of medications, etc. to avoid any acute events. 6. Hyperlipidemia He will continue lipid-lowering therapy as deemed appropriate. 7. Hypertension His blood pressure will be monitored. He will continue medical therapy with adjustment as deemed appropriate. 8. COPD He does have a history of underlying COPD. He is undergoing evaluation care for a COPD exacerbation. He has been evaluated by infectious disease. He is no longer on antibiotic therapy. Comment: The above was discussed with patient, his spouse, Dr. Mclaughlin, and Dr. Skinner. This note was generated with Accion dictation software. It may contain incorrect words, spelling, and punctuation that were not noted in checking the note before signing. 01/25/18 1827 <Electronically signed by Apollo Lindsey MD> Date Apollo Lindsey MD Cosigner Signature (if applicable): Date CC: Stephanie Fuchs MD; Apollo Lindsey MD; Jake Ley MD Signed M R STAPH AUREUS Collected: 01/25/2018 Status: C Source: [place] DNA BY PCR 6:00 PM [facility] REPOSITORY Order Comment: Has pt arrived? Y TYPE CODE TESTS RESULT OUT OF REFERENCE UNITS RANGE LAB L8200.1100 Negative High MRSA POSITIVE RESULT Result Comment: SENT TO MONTY ALVAREZ 01-25-18 AT 203PM RESULTS CALLED TO LAZ MADRID PCU 01/25/182033 Ramon Jolly. REPORT READ BACK BY SAME . Performed By: #### L8200.1000 #### [facility] [address] [place], [address] ABO RH BLOOD TYPE, Collected: 01/25/2018 Status: F Source: [place] PATIENT 12:35 PM [facility] REPOSITORY Order Comment: Number of units to be transfused: 2 When is Plasma to be Transfused? 1121 TYPE CODE TESTS RESULT OUT OF RANGE REFERENCE UNITS LAB B10.0800 B Normal BLOOD POSITIVE TYPE GEL Performed By: #### B10.0010 #### [facility] [address] [place], [place], [address] FFP Collected: 01/25/2018 Status: F Source: [place] 12:35 PM [facility] REPOSITORY TYPE CODE TESTS RESULT OUT OF REFERENCE UNITS RANGE LAB U100.0900 [id number] TRANSFUSED PRODUCT: Fresh Frozen Plasma COUNT: 2 Performed By: #### U100.0900 #### Non-[facility] - refer to report for specific site PROTHROMBIN TIME W/INR Collected: 01/25/2018 Status: F Source: [place] 9:18 AM [facility] REPOSITORY TYPE CODE TESTS RESULT OUT OF REFERENCE UNITS RANGE LAB L300.4150 11.7-14.9 SECONDS High PROTIME 35.3 LAB L300.4200 High alert INR 3.5 Result Comment: CRITICAL VALUE VERIFIED. CALLED TO ALVINA MADRID 01/25/18 1002 Yash Ribeiro. RESULTS READ BACK BY SAME. Performed By: #### L300.3900 #### [facility] [address] [place], [address] BASIC METABOLIC Collected: 01/25/2018 Status: F Source: [place] [facility] (BMP) [facility] TYPE CODE TESTS RESULT OUT OF RANGE REFERENCE UNITS LAB L501.0100 74-106 mg/dL High GLU 111 Result Comment: Fasting Glucose result from 100 to 125 mg/dL suggests IMPAIRED HOMEOSTASIS per A.D.A. criteria. Please note revised GLUCOSE reference range effective 2017. LAB L501.1000 7-18 mg/dL High BUN 25 LAB L501.1100 0.70-1.30 mg/dL Normal CREAT,SERUM 1.28 Result Comment: The validity of the calculated GFR AND GFRAA in patients over 70 years has not been determined. Clinical correlation is essential. LAB L501.1110 >60 mL/min Low EST GFR 58 Result Comment: Non- GFR Calc LAB L501.1115 >60 mL/min Normal EST GFR - AA 70 Result Comment: GFR Calc LAB L501.1255 ml/min Normal Estimated CRCL 48.32 LAB L501.1300 10-20 RATIO Normal BUN/CRE 19.5 LAB L501.2200 8.5-10 mg/dL Low .1 CA 8.4 LAB L501.5300 136-14 mmol/L Normal 5 NA 143 LAB L501.5600 3.5-5. mmol/L Normal 1 K 4.4 LAB L501.5900 98-107 mmol/L High CL 110 LAB L501.6100 21.0-3 mmol/L Normal 2.0 CO2 25.0 LAB L501.6200 5-15 Normal GAP 8 Performed By: #### L500.2500 #### [facility] [address] [facility] [place], [address] ECHOCARDIOGRAM COMPLETE Observed: 01/24/2018 Status: F Source: [place] 4:20 PM [facility] REPOSITORY [facility] Cardiovascular Services [address] [place] [address] Echo Complete 01/24/18 1442 MR#: [id number] Acct: [id number] Name: HUNTER HENDRICKSON Jr. Rep #: [id number] : 1940 77 From: Clint Skinner MD Attending Dr: Modesto Mclaughlin DO Status: ADM IN Ordering Dr: Modesto Mclaughlin DO Date: 01/24/18 Location: [facility] Sex: M C Admitted: 01/22/18 Reason For Study: Dyspnea/SOB Procedure This was a 2D Doppler, Color Flow transthoracic echocardiogram. The study was technically difficult. Unable to use definity due to increased PAP. Exam performed portable in patient room. Left Ventricle Normal LV size. Left ventricular systolic function is normal. Segmental dysfunction with preserved ejection fraction (see wall motion). No evidence for diastolic dysfunction. The estimated ejection fraction is 55 %. Manning : Akinetic. Right Ventricle Normal RV size. Normal systolic function. Atria The left atrium is mildly enlarged. The right atrium is mildly enlarged. Mitral Valve Normal mitral valve. Tricuspid Valve Normal tricuspid valve. Moderate (2+) tricuspid valve insufficiency. Pulmonary artery systolic pressure is 54 mmHg. Moderate pulmonary hypertension. Aortic Valve Normal aortic valve. Trisinus/trileaflet aortic valve. Pulmonic Valve Normal pulmonic valve. Great Vessels Normal aortic root. The pulmonary artery is normal size. Normal inferior vena cava. Pericardium/Pleural No pericardial effusion. MMode/2D Measurements AND Calculations LVIDd: 4.9 cm IVSd: 1.2 cm LVOT diam: 2.2 cm LVIDs: 4.0 cm LVPWd: 0.95 cm LVOT area: 3.8 cm2 FS: 19.1 % Ao root diam: 3.6 cm LAV(MOD-sp4): 68.9 ml LA A4 area: 22.5 cm2 LA dimension: 3.6 cm RA A4 area: 22.2 cm2 Time Measurements MV dec time: 0.22 sec Doppler Measurements AND Calculations MV E max derrick: 94.5 cm/sec Lat Peak E' Derrick: 9.8 cm/sec Med Peak E' Derrick: 11.2 cm/sec MV A max derrick: 71.2 cm/sec E/E' lat: 9.6 E/E' med: 8.4 MV E/A: 1.3 MV V2 max: 131.0 cm/sec MV P1/2t max derrick: 131.0 cm/sec Ao V2 max: 149.8 cm/sec MV max P.9 mmHg MV P1/2t: 87.1 msec Ao max P.0 mmHg MV V2 mean: 78.5 cm/sec MV dec slope: 440.5 cm/sec2 Ao V2 mean: 93.4 cm/sec MV mean P.8 mmHg MVA(P1/2t): 2.5 cm2 Ao mean P.2 mmHg MV V2 VTI: 36.8 cm Ao V2 VTI: 30.5 cm MVA(VTI): 2.6 cm2 ANUP(I,D): 3.1 cm2 ANUP(V,D): 3.1 cm2 LV V1 max: 122.4 cm/sec MR max derrick: 559.1 cm/sec SV(LVOT): 95.2 ml LV V1 max P.0 mmHg MR max P.0 mmHg LV V1 mean P.7 mmHg MR mean derrick: 448.7 cm/sec LV V1 mean: 75.3 cm/sec MR mean P.9 mmHg LV V1 VTI: 25.4 cm MR VTI: 180.7 cm PA V2 max: 104.0 cm/sec TR max derrick: 348.4 cm/sec TR max P.5 mmHg Interpretation Summary Normal LV size. Left ventricular systolic function is normal. Segmental dysfunction with preserved ejection fraction (see wall motion). No evidence for diastolic dysfunction. Pulmonary artery systolic pressure is 54 mmHg. Moderate pulmonary hypertension. Compared to prior study, there is no significant change. Ordering Physician: Modesto Mclaughlin Referring Physician: Howie Parikh Performed By: Tomer George RCS 01/24/18 1620 Date Clint Skinner MD CC: Stephanie Fuchs MD; Modesto Mclaughlin DO Date Dictated: 01/24/18 1442 Date Transcribed: 01/24/181619 Mold Filler: Signed CONSULTATION Observed: 01/24/2018 Status: F Source: [place] 4:02 PM [facility] REPOSITORY [facility] Medical Records Department [address] [place] [address] Consultation 01/24/18 1558 MR#: [id number] Acct: [id number] Name: HUNTER HENDRICKSON JrMert Rep #: [id number] : 1940 77 From: Jake Ley MD PCP: Stephanie Fuchs MD Status: ADM IN Y Location: [facility] [id number] Problem List (1) Fever Status: Acute Reason for Consult: fever Consulted by: Dr. Mclaughlin History of Present Illness: The patient is a 77 year old M who presented late in evening of 01/21 with sudden onset of severe lower back pain. He was outside smoking, back pain started, and he had to crawl back into the house. No trauma. Pain was sharp with no radiation. Has h/o chronic SOB, does not use oxygen at home, now with more dyspnea. Some cough with sputum as baseline, not changed. Family at bedside. Had fever on presentation to ED. Admitted 01/22, given dose of ceftriaxone and azithro in AM of 01/23. Pain in back resolved s/p arrival. Full ROS performed and neg except as noted above. - Medical History Past Medical History (Chronic Problems): Chronic Problems (Last Updated 01/24/18 @ 08:34 by Modesto Mclaughlin, ) Tobacco abuse (Chronic) AAA (abdominal aortic aneurysm) (Chronic) PVD (peripheral vascular disease) (Chronic) Long-term use of high-risk medication (Chronic) Stage 2 moderate COPD by GOLD classification (Chronic) ARLENE (obstructive sleep apnea) (Chronic) Central sleep apnea (Chronic) S/P PTCA (percutaneous transluminal coronary angioplasty) (Chronic) Cardiomyopathy (Chronic) SSS (sick sinus syndrome) (Chronic) Autonomic dysfunction (Chronic) HLD (hyperlipidemia) (Chronic) PAD (peripheral artery disease) (Chronic) Community acquired pneumonia (Chronic) Coronary artery disease (Chronic) S/P LAD and LCx stenting BPH (benign prostatic hypertrophy) with urinary obstruction (Chronic) Depressive disorder (Chronic) HTN (hypertension) (Chronic) Atrial fibrillation (Chronic) GERD (gastroesophageal reflux disease) (Chronic) History of orchiectomy, unilateral (Chronic) Pacemaker (Chronic) Nephrolithiasis (Chronic) Personality disorder (Chronic) Allergies/Adverse Reactions: Allergies lactose Allergy (Severe, Verified 01/21/18 23:13) unknown Penicillins Allergy (Severe, Verified 01/21/18 23:13) Anaphylaxis adhesive Allergy (Verified 01/21/18 23:13) Rash Sulfa (Sulfonamide Antibiotics) Allergy (Verified 01/21/18 23:13) Unknown diazepam [From Valium] Adverse Reaction (Verified 01/21/18 23:13) hyper opposite effect desired HYPER OPPOSITE EFFECT DESIRED niacin [From Niaspan Extended-Release] Adverse Reaction (Verified 01/21/18 23:13) low bp LOW BP simvastatin Adverse Reaction (Verified 01/21/18 23:13) Pain in joints Home Medications: Ambulatory Orders Medication Instructions Recorded Acetaminophen/Diphenhydramine 500 mg PO QHS 06/18/17 [Tylenol Pm Ex-Strength Caplet] Amlodipine [Norvasc] 2.5 mg PO QHS 06/18/17 Atorvastatin Calcium [Lipitor] 40 mg PO QHS 06/18/17 - Social History Tobacco Use: cigarettes Vital Signs Temp Pulse Resp BP Pulse Ox 97.9 F 80 24 H 158/82 H 94 01/24/18 14:14 01/24/18 15:19 01/24/18 15:15 01/24/18 14:14 01/24/18 14:14 Oxygen Flow Rate (L/min) 3 Oxygen Delivery Method Nasal Cannula Weight: 83.4 kg Body Mass Index (BMI) 26.4 Microbiology Past 72 Hours 01/22/18 03:42 Urine Culture - Final Urine, Clean Catch Culture exhibits no growth. 01/21/18 23:32 Blood Culture - Preliminary Blood Culture (Wb) - Anticubital Left No growth in 48 hours. Laboratory Tests Past 24 Hrs - Other Studies Radiology: [] reviewed Other Studies: [] Route of nutrition/ use of supplements: [] Nutritional Intake: [] IV Site: [] Chambers Catheter: [] - Physical Exam General: Alert, Oriented x3, Cooperative, No apparent distress HEENT: Atraumatic, PERRLA, EOMI Neck: Supple, No Nodes Lungs: Diminished, Wheezes Cardiovascular: Irregular Rate Abdomen: Soft, Non Tender, Non-Distended Extremities: No edema Skin: No rashes IV Site: Peripheral, without redness Musculoskeletal: No Tenderness to Palpation of Joints or Extremities - Assessment/Plan Antibiotics: [] Assessment/Plan: [] copd exacerbation - one time fever, some hypoxia. CT shows upper lobe changes. Ok to monitor off of abx. Wbc normal. Resp viral panel neg. Will follow, d/w primary team. 01/24/18 1602 <Electronically signed by Jake Ley MD> Date Jake Ley MD Cosigner Signature (if applicable): Date CC: Stephanie Fuchs MD; Jake Ley MD Signed 12 LEAD ELECTROCARDIOGRAM Observed: 01/24/2018 Status: F Source: [place] 2:56 PM [facility]PITAL REPOSITORY [facility] Cardiovascular Services [address] [place] [address] 12 Lead EKG 01/21/18 2344 MR#: [id number] Acct: [id number] Name: HUNTER HENDRICKSON Rep #: [id number] : 1940 77 From: Clint Skinner MD Attending Dr: Modesto Mclaughlin DO Status: ADM IN Ordering Dr: Troy Cueva MD Date: 01/21/18 Location: [facility] Sex: M C Admitted: 01/22/18 Test Reason : Blood Pressure : / mmHG Vent. Rate : 068 BPM Atrial Rate : 068 BPM P-R Int : 148 ms QRS Dur : 138 ms QT Int : 408 ms P-R-T Axes : 047 -78 -01 degrees QTc Int : 433 ms Sinus rhythm with occasional ventricular-paced complexes Left axis deviation Right bundle branch block Abnormal ECG Confirmed by SUSANNE HANEY, CLINT ([id number]), film and video editor GUERITA ONEILL ([id number]) on 01/24/2018 2:56:39 PM Referred By: GERARDO Confirmed By:CLINT SKINNER MD 01/24/18 1456 Date Clint Skinner MD CC: Stephanie Fuchs MD; Troy Cueva MD; Modesto Mclaughlin DO Signed CHEST WITHOUT Observed: 01/24/2018 Status: F Source: [place] CONTRAST 1:22 PM [facility] HOSPITAL REPOSITORY [facility] Imaging Services [address] [place] [address] Chest without Contrast MR#: [id number] Acct: [id number] Name: HUNTER HENDRICKSON Jr. Rep #: [id number] : 1940 M 77 From: Devon Valiente MD PCP: Stephanie Fuchs MD Status: ADM IN Study: Chest without Contrast Date of Exam: 01/24/18 Exam# [id number] Ordering Dr: Modesto Mclaughlin DO STUDY: CT CHEST WITHOUT CONTRAST REASON FOR EXAM: Male, 77 years old. Cough RADIATION DOSAGE (If Supplied By Facility): CTDIvol = ( 13.62 ) mGy, DLP = ( 506.98 ) mGycm TECHNIQUE: Transaxial imaging was performed without the administration of intravenous contrast material. : Sagittal 2-D MPR Individualized dose optimization techniques were used for this CT. COMPARISON: X-ray chest 01/21/2018. FINDINGS: Supraclavicular: No acute process. Thoracic body wall soft tissues: No acute process. Thoracic osseous structures: No acute process. Upper abdomen: Limited evaluation, cholecystectomy, simple appearing right hepatic cyst 2.4 cm. Mild pancreatic atrophy. No acute process. Mediastinum: Normal esophagus. Several borderline enlarged lymph nodes paratracheal, chronicity uncertain. Cardiovascular: Mild cardiomegaly. Subendocardial fibrofatty scar/infarct of the apex of the left ventricle, LAD distribution. Three- vessel coronary atherosclerosis. Stents. Mildly ectatic aorta. Mildly ectatic central pulmonary arteries. Lungs: Small bilateral layering pleural effusions with mild bibasilar atelectasis. In the upper lungs bilaterally, there are patchy and confluent groundglass infiltrates greater on the left, in a pattern most consistent with acute pneumonia, superimposed upon underlying features of centrilobular emphysema. A few scattered small pulmonary nodules are visible, less than [address]/Chest without Contrast IMPRESSION: Bilateral upper lobe pneumonia left greater than right. Centrilobular emphysema. Next line old myocardial infarction. A few scattered pulmonary nodules are nonspecific. Follow- up is recommended according to the ACR lung RADS criteria and/or the Fleischner Society Criteria in the setting of smoking history. Annual low dose screening chest CT scan recommended. Electronically Signed: Devon Valiente, at 13:59 EDT Tel , Service support , CC: Stephanie Fuchs MD; Modesto Mclaughlin DO Mold Filler: Signed BASIC METABOLIC Collected: 01/24/2018 Status: F Source: [place] PROFILE (BMP) 5:30 AM [facility] REPOSITORY TYPE CODE TESTS RESULT OUT OF RANGE REFERENCE UNITS LAB L501.0100 74-106 mg/dL High GLU 163 Result Comment: Fasting Glucose result greater than or equal to 126 mg/dL suggests DIABETES MELLITUS per A.D.A. criteria. Please note revised GLUCOSE reference range effective 2017. LAB L501.1000 7-18 mg/dL High BUN 24 LAB L501.1100 0.70-1.30 mg/dL Normal CREAT,SERUM 1.17 Result Comment: The validity of the calculated GFR AND GFRAA in patients over 70 years has not been determined. Clinical correlation is essential. LAB L501.1110 >60 mL/min Normal EST GFR 64 Result Comment: Non- GFR Calc LAB L501.1115 >60 mL/min Normal EST GFR - AA 77 Result Comment: GFR Calc LAB L501.1255 ml/min Normal Estimated CRCL 52.86 LAB L501.1300 10-20 RATIO High BUN/CRE 20.5 LAB L501.2200 8.5-10 mg/dL Normal .1 CA 8.5 LAB L501.5300 136-14 mmol/L Normal 5 NA 143 LAB L501.5600 3.5-5. mmol/L Normal 1 K 4.6 LAB L501.5900 98-107 mmol/L High CL 112 LAB L501.6100 21.0-3 mmol/L Normal 2.0 CO2 24.0 LAB L501.6200 5-15 Normal GAP 7 Performed By: #### L500.2500 #### [facility] [address] [place], [address] PROTHROMBIN TIME W/INR Collected: 01/24/2018 Status: F Source: [place] 5:30 AM [facility] REPOSITORY TYPE CODE TESTS RESULT OUT OF RANGE REFERENCE UNITS LAB L300.4150 11.7-14.9 SECONDS High PROTIME 32.7 LAB L300.4200 Normal INR 3.2 Performed By: #### L300.3900 #### [facility] [address] [place], [address] BNP,B-TYPE NATRIURETIC Collected: 01/24/2018 Status: F Source: [place] PEPTIDE 5:30 AM [facility] REPOSITORY TYPE CODE TESTS RESULT OUT OF RANGE REFERENCE UNITS LAB L503.6620 0-100 pg/mL High B-TYPE 1473.8 BEBA PEP Performed By: #### L503.6620 #### [facility] [address] [place], [address] CBC W/DIFF, AUTOMATED Collected: 01/23/2018 Status: F Source: [place] 5:34 AM [facility] REPOSITORY TYPE CODE TESTS RESULT OUT OF RANGE REFERENCE UNITS LAB L100.1000 4.4-11.0 K/mm3 Normal WBC 10.6 LAB L100.1200 4.6-6.2 M/mm3 Low RBC 3.51 LAB L100.1300 13.0-16.5 g/dl Low HGB 10.2 LAB L100.1400 40-54 % Low HCT 32.9 LAB L100.1500 80-94 fL Normal MCV 93.7 LAB L100.1600 27.0-32.0 pg Normal MCH 29.1 LAB L100.1700 32-36 g/gl Low MCHC 31.0 LAB L100.1810 11.6-14.6 % High RDW CV 18.7 LAB L100.1820 35.1-43.9 fl High RDW SD 61.6 LAB L100.1900 150-450 K/mm3 Low PLT 112 LAB L100.2000 6.2-12.0 fl Normal MPV 11.5 LAB L100.2100 47-70 % High NEUT% 94.3 LAB L100.2200 19-41 % Low LY% 3.4 LAB L100.2300 0-10 % Normal MONO% 2.1 LAB L100.2400 0-5 % Normal EO% 0.0 LAB L100.2500 0-1 % Normal BASO% 0.0 LAB L100.2550 0.0-0.9 % Normal IM GRAN % 0.200 Result Comment: IG% - Immature Granulocytes (promyelocytes, myelocytes and metamyelocytes) > 1% indicates that a LEFT SHIFT is Present. LAB L100.2620 2.0-7.7 X10 3/uL High Absolute Neut 10.0 LAB L100.2720 0.83-4.51 X10 3/ul Low Absolute Lymph 0.36 LAB L100.4500 Normal SMEAR COMMENT SCANNED Performed By: #### L100.0100 #### [facility] [address] [place], [place], [address] BASIC METABOLIC Collected: 01/23/2018 Status: F Source: [place] PROFILE (BMP) 5:34 AM [facility] REPOSITORY TYPE CODE TESTS RESULT OUT OF RANGE REFERENCE UNITS LAB L501.0100 74-106 mg/dL High GLU 183 Result Comment: Fasting Glucose result greater than or equal to 126 mg/dL suggests DIABETES MELLITUS per A.D.A. criteria. Please note revised GLUCOSE reference range effective 2017. LAB L501.1000 7-18 mg/dL High BUN 23 LAB L501.1100 0.70-1.30 mg/dL High CREAT,SERUM 1.32 Result Comment: The validity of the calculated GFR AND GFRAA in patients over 70 years has not been determined. Clinical correlation is essential. LAB L501.1110 >60 mL/min Low EST GFR 56 Result Comment: Non- GFR Calc LAB L501.1115 >60 mL/min Normal EST GFR - AA 67 Result Comment: GFR Calc LAB L501.1255 ml/min Normal Estimated CRCL 46.85 LAB L501.1300 10-20 RATIO Normal BUN/CRE 17.4 LAB L501.2200 8.5-10 mg/dL Low .1 CA 8.1 LAB L501.5300 136-14 mmol/L Normal 5 NA 142 LAB L501.5600 3.5-5. mmol/L Normal 1 K 4.5 LAB L501.5900 98-107 mmol/L High CL 109 LAB L501.6100 21.0-3 mmol/L Normal 2.0 CO2 23.0 LAB L501.6200 5-15 Normal GAP 10 Performed By: #### L500.2500 #### [facility] [address] [place], [address] PROTHROMBIN TIME W/INR Collected: 01/23/2018 Status: F Source: [place] 5:34 AM [facility] REPOSITORY TYPE CODE TESTS RESULT OUT OF RANGE REFERENCE UNITS LAB L300.4150 11.7-14.9 SECONDS High PROTIME 19.9 LAB L300.4200 Normal INR 1.7 Performed By: #### L300.3900 #### [facility] [address] [place], [address] Observed: 01/22/2018 Status: F Source: [place] RESPIRATORY PANEL 8:55 AM [facility] [place] MOLECULAR REPOSITORY RP PANEL ADENOVIRUS Not Detected HUMAN METAPHNEUMO Not Detected INFLUENZA A Not Detected INFLUENZA A (SUBTYPE H1) Not Detected INFLUENZA A (SUBTYPE H3) Not Detected INFLUENZA B Not Detected PARAINFLUENZA 1 Not Detected PARAINFLUENZA 2 Not Detected PARAINFLUENZA 3 Not Detected PARAINFLUENZA 4 Not Detected RHINOVIRUS Not Detected RSV A Not Detected RSV B Not Detected NAAT METHOD Testing was performed using nucleic acid amplification Performed By: #### M100.638 #### [facility] [address] [place] [address], [id number] HISTORY AND PHYSICAL Observed: 01/22/2018 Status: F Source: [place] EXAM 6:55 AM [facility] REPOSITORY [facility] Medical Records Department [address] [place] [id number] History and Physical 01/22/18 0427 MR#: [id number] Acct: [id number] Name: HUNTER HENDRICKSON Angel Lloyd Rep #: [id number] : [id number] 77 From: Josiah Squires MD PCP: Stephanie Fuchs MD Status: ADM NATALY Y Location: [place] [address] Problem List (1) Intractable low back pain Status: Acute (2) Coronary artery disease Status: Chronic Comment: S/P LAD and LCx stenting (3) BPH (benign prostatic hypertrophy) with urinary obstruction Status: Chronic (4) HTN (hypertension) Status: Chronic Qualifiers: Hypertension type: essential hypertension Qualified Code(s): I10 - Essential (primary) hypertension (5) Atrial fibrillation Status: Chronic History of Present Illness Date of Admission: 01/22/18 Chief Complaint: lower back pain The patient is a 77 year old M with a significant history of AAA; CAD, BPH, hypertension, permanent pacemaker, A. fib; chronic back pain who presents with progressively worsening back pain x 2 days. As stated above patient has a history of chronic back pain and he gets spinal steroid shots every 3-4 months. At home he takes Lyrica twice daily. Outpatient patient was supposed to be starting physical therapy in about 3 days time. His pain is located at his entire lower back with left greater than right. His pain is so excruciating that he was unable to move and the squad was called who brought him to the emergency department. At rest his pain is improved; and with moving his body his pain is worsened. He denies any bowel changes. At emergency department he could not produce urine and he had to be straight cath but he attributes this to his history of BPH and multiple surgeries on his prostate that occasionally makes it difficult for him to urinate. His pain does not radiate to his thighs or legs. At emergency department patient was noted to have a fever with a T-max of 101.4 In December of this year patient was treated for acute exacerbation of COPD with Levaquin and steroids. Past Medical History Past Medical History (Chronic Problems): Chronic Problems (Last Reviewed 01/22/18 @ 06:22 by Josiah Squires MD) Tobacco abuse (Chronic) AAA (abdominal aortic aneurysm) (Chronic) PVD (peripheral vascular disease) (Chronic) Long-term use of high-risk medication (Chronic) Stage 2 moderate COPD by GOLD classification (Chronic) ARLENE (obstructive sleep apnea) (Chronic) Central sleep apnea (Chronic) S/P PTCA (percutaneous transluminal coronary angioplasty) (Chronic) Cardiomyopathy (Chronic) SSS (sick sinus syndrome) (Chronic) Autonomic dysfunction (Chronic) HLD (hyperlipidemia) (Chronic) PAD (peripheral artery disease) (Chronic) Community acquired pneumonia (Chronic) Coronary artery disease (Chronic) S/P LAD and LCx stenting BPH (benign prostatic hypertrophy) with urinary obstruction (Chronic) Depressive disorder (Chronic) HTN (hypertension) (Chronic) Atrial fibrillation (Chronic) GERD (gastroesophageal reflux disease) (Chronic) History of orchiectomy, unilateral (Chronic) Pacemaker (Chronic) Nephrolithiasis (Chronic) Personality disorder (Chronic) Medical History: Medical History (Last Reviewed 01/22/18 @ 06:22 by Josiah Squires MD) Shortness of breath (Acute) R06.02 Aspiration pneumonia (Acute) J69.0 Tobacco abuse (Chronic) Z72.0 AAA (abdominal aortic aneurysm) (Chronic) I71.4 PVD (peripheral vascular disease) (Chronic) I73.9 Palpitations (Acute) R00.2 Long-term use of high-risk medication (Chronic) Z79.899 Dizziness and giddiness (Acute) R42 Syncope (Acute) R55 Cough (Acute) R05 Dyspnea (Acute) R06.00 Bronchitis (Acute) J40 Stage 2 moderate COPD by GOLD classification (Chronic) J44.9 Acute respiratory failure with hypoxia (Acute) J96.01 Malaise and fatigue (Acute) R53.81, R53.83 ARLENE (obstructive sleep apnea) (Chronic) G47.33 Central sleep apnea (Chronic) G47.31 Respiratory failure with hypoxia (Resolved) J96.91 Unstable angina (Acute) Chest pain (Acute) R07.9 Cardiomyopathy (Chronic) I42.9 SSS (sick sinus syndrome) (Chronic) I49.5 Autonomic dysfunction (Chronic) G90.9 HLD (hyperlipidemia) (Chronic) E78.5 PAD (peripheral artery disease) (Chronic) I73.9 Acute kidney injury (Acute) N17.9 Sepsis (Resolved) A41.9 Community acquired pneumonia (Chronic) J18.9 Coronary artery disease (Chronic) I25.10 S/P LAD and LCx stenting BPH (benign prostatic hypertrophy) with urinary obstruction (Chronic) N40.1, N13.8 Depressive disorder (Chronic) F32.9 HTN (hypertension) (Chronic) I10 Atrial fibrillation (Chronic) I48.91 GERD (gastroesophageal reflux disease) (Chronic) K21.9 Pacemaker (Chronic) Z95.0 Nephrolithiasis (Chronic) Personality disorder (Chronic) F60.9 Allergies lactose Allergy (Severe, Verified 01/21/18 23:13) unknown Penicillins Allergy (Severe, Verified 01/21/18 23:13) Anaphylaxis adhesive Allergy (Verified 01/21/18 23:13) Rash Sulfa (Sulfonamide Antibiotics) Allergy (Verified 01/21/18 23:13) Unknown diazepam [From Valium] Adverse Reaction (Verified 01/21/18 23:13) hyper opposite effect desired HYPER OPPOSITE EFFECT DESIRED niacin [From Niaspan Extended-Release] Adverse Reaction (Verified 01/21/18 23:13) low bp LOW BP simvastatin Adverse Reaction (Verified 01/21/18 23:13) Pain in joints Home Medications: Ambulatory Orders Medication Instructions Recorded Acetaminophen/Diphenhydramine 500 mg PO QHS 06/18/17 [Tylenol Pm Ex-Strength Caplet] Amlodipine [Norvasc] 2.5 mg PO DAILY 06/18/17 Surgical History: Surgical History (Last Reviewed 01/22/18 @ 06:22 by Josiah Squires MD) S/P TURP (status post transurethral resection of prostate) (Resolved) Z90.79 pacemaker implantation (Resolved) History of inguinal hernia repair (Resolved) Z98.890, Z87.19 History of hemorrhoidectomy (Resolved) Z98.890 History of prostatectomy (Resolved) Z98.890, Z90.79 right ochiectomy (Resolved) History of appendectomy (Resolved) Z98.890, Z90.49 S/P PTCA (percutaneous transluminal coronary angioplasty) (Chronic) Z98.61 History of orchiectomy, unilateral (Chronic) Z90.79 Surgical History: angioplasty, appendectomy, cholecystectomy, herniorrhaphy Psychiatric History: Depression Lives: Spouse/ Significant Other Smoking Status: Current every day smoker - *Family History Paternal Family History: Family History (Last Reviewed 01/22/18 @ 06:23 by Josiah Squires MD) Father CAD (coronary artery disease) Mother Breast cancer Arthritis CAD (coronary artery disease) Hypertension Sister CVA (cerebral vascular accident) Diabetes Hypertension Son CAD (coronary artery disease) Hypertension History Items: Heart Disease, Renal Disease Sibling Family History: Family History (Last Reviewed 01/22/18 @ 06:23 by Josiah Squires MD) Father CAD (coronary artery disease) Mother Breast cancer Arthritis CAD (coronary artery disease) Hypertension Sister CVA (cerebral vascular accident) Diabetes Hypertension Son CAD (coronary artery disease) Hypertension History Items: Diabetes, Heart Disease Offspring Family History: Family History (Last Reviewed 01/22/18 @ 06:23 by Josiah Squires MD) Father CAD (coronary artery disease) Mother Breast cancer Arthritis CAD (coronary artery disease) Hypertension Sister CVA (cerebral vascular accident) Diabetes Hypertension Son CAD (coronary artery disease) Hypertension History Items: Heart Disease Maternal Family History: Family History (Last Reviewed 01/22/18 @ 06:23 by Josiah Squires MD) Father CAD (coronary artery disease) Mother Breast cancer Arthritis CAD (coronary artery disease) Hypertension Sister CVA (cerebral vascular accident) Diabetes Hypertension Son CAD (coronary artery disease) Hypertension History Items: Cancer, Heart Disease Review of Systems Constitutional: Denies: Chills, Fever, Weight Change HEENT: Denies: Head Aches, Sinus Congestion, Sinus Drainage Cardiovascular: Denies: Chest Pain, Palpitations Respiratory: Reports: Cough - chronic, Sputum production - chronic. Denies: Shortness of breath at rest Gastrointestinal: Denies: Abdominal Pain, Nausea, Vomiting Genitourinary: Denies: Dysuria Musculoskeletal: Reports: Back Pain. Denies: Joint Pain, Joint Tenderness Skin: Denies: Rash, Wounds Neurological: Denies: Numbness, Tingling, Focal weakness Psychiatric: Denies: Anxiety, Depression, Homicidal Ideations, Suicidal Ideations Hematologic/ Lymphatic: Denies: Easy Bruising, Easy Bleeding VTE Information - Inpt Only VTE Present on Admission: No VTE Mechan Device Prophylaxis: None VTE Pharm Prophylaxis ordered?: No Reason prophylaxis not ordered:: Treatment Not Indicated - Patient on Coumadin for A. fib; which will be continued. - Physical Exam General: Alert, Oriented x3, Cooperative HEENT: Atraumatic, PERRLA, EOMI, Normocephalic Neck: Supple, No JVD, Negative Carotid Bruits Lungs: Normal air movement, Rhonchi - initally mild rhonchi which cleared up. Cardiovascular: Regular rate, No murmurs Abdomen: Bowel Sounds Present, Soft, Non Tender Extremities: No edema, Capillary Refill Less than 3 Seconds Skin: No rashes, No breakdown Musculoskeletal: Tenderness - to left lower back Lymphatic: No Cervical, Supraclavicular, or Inguinal Adenopathy Neurological: Cranial nerves II-XII grossly intact Psych/Mental Status: Normal Affect, Appropriate Vital Signs Temp Pulse Resp BP Pulse Ox 97.9 F 65 17 102/68 93 01/22/18 03:26 01/22/18 03:26 01/22/18 03:26 01/22/18 03:26 01/22/18 03:26 Oxygen Flow Rate (L/min) 4 Oxygen Delivery Method Nasal Cannula Weight: 79.832 kg Body Mass Index (BMI) 25.2 Microbiology Past 72 Hours 01/21/18 23:45 Influenza Types A,B Direct FA (BRIAN) - Final Mucosa - Nasopharyngeal Laboratory Tests Past 24 Hrs WBC 12.1 H RBC 3.92 L Hgb 11.3 L Hct 35.7 L MCV 91.1 MCH 28.8 MCHC 31.7 L RDW 18.8 H RDW Differential 62.9 H Assessment/Plan All Active Problems (Last Reviewed 01/22/18 @ 06:22 by Josiah Squires MD) Intractable low back pain (Acute) Shortness of breath (Acute) Aspiration pneumonia (Acute) S/P TURP (status post transurethral resection of prostate) (Resolved) pacemaker implantation (Resolved) History of inguinal hernia repair (Resolved) History of hemorrhoidectomy (Resolved) History of prostatectomy (Resolved) right ochiectomy (Resolved) History of appendectomy (Resolved) Palpitations (Acute) Dizziness and giddiness (Acute) Syncope (Acute) Cough (Acute) Dyspnea (Acute) Bronchitis (Acute) Acute respiratory failure with hypoxia (Acute) Malaise and fatigue (Acute) Respiratory failure with hypoxia (Resolved) Unstable angina (Acute) Chest pain (Acute) Acute kidney injury (Acute) Sepsis (Resolved) The patient is a 77 year old M with a significant history of AAA; CAD, BPH, hypertension, permanent pacemaker, A. fib; chronic back pain who presents with progressively worsening back pain; and found to have a fever and hypotension. Intractable back pain He reports history of disc herniation. Other different diagnosis includes muscle sprain/strain. Because patient has a pacemaker MRI could not be done. He reported that his pacemaker is not MRI compatible. Abdominal and pelvic CT was done with the intent to evaluate his abdomen and also his back. It showed Multilevel degenerative changes of the lumbosacral spine and the lower thoracic spine. CT did not show any acute pathology in his abdomen or in his back. Patient received fentanyl at emergency department. Oxycodone as needed and morphine as needed ordered. Flexeril as needed. K pad to left lower back. Prn Tylenol not ordered at this time so we can better track his fever. At night though he takes Tylenol PM that was continued. Patient to work with PT and OT. Fever Etiology of his fever is unclear at this time. Chest x-ray independently reviewed confirms no acute cardia pulmonary disease. Urinalysis was unremarkable Patient had no open wounds or redness on his skin. Mild leukocytosis Antibiotic was not started. Blood cultures was ordered from emergency department. Comprehensive respiratory pathogen panel ordered Tylenol not re-started; and if fever rebound consider starting patient on antibiotics. However home Tylenol pm was continued. Hypotension Reportedly patient initial blood pressure was in the high 80s with the automatic ED machine but found to be in the lower 100s of manual blood pressure machine. In any case patient has a history of hypertension and on blood pressure medication, making his blood pressure on admission concerning. Patient received IV bolus at emergency department and his blood pressure remained above 100. Lactic acid was unremarkable. Home blood pressure medication held. Trend blood pressures. If blood pressure remains low consider antibiotics. History of CABG ASA and Lipitor continued. Dementia Patient with good cognitive ability Aricept continued. Depression Zoloft continued Paroxysmal A. fib Metoprolol held secondary to hypotension Patient with pacemaker EKG with right bundle branch block and normal heart rate. INR is subtherapeutic 1.4. Patient reports that he resumed taking Coumadin two days ago after it was held for 3 days secondary to supratherapeutic INR. Coumadin 3mg x 1 today. Repeat INR on 01/23/2018. DVT prophylaxis Not indicated patient on on Coumadin; adjusted as above. Code Visit OBSV E AND M: [id number] Initial observation care L3 01/22/18 0655 <Electronically signed by Josiah Squires MD> Date Josiah Squires MD Cosigner Signature: Date (if applicable) CC: Stephanie Fuchs MD; Josiah Squires MD Signed EMERGENCY DEPARTMENT Observed: 01/22/2018 Status: F Source: SAW SUMMARY 6:50 AM [facility] [place] REPOSITORY [facility] Medical Records Department [address] [place] [address] Emergency Department Summary 01/22/18 0421 MR#: [id number] Acct: [id number] Name: HUNTER HENDRICKSON Jr. Rep #: [id number] : 1940 77 From: Troy Cueva MD PCP: Stephanie Fuchs MD Status: ADM NATALY - ER Visit Summary Date of Service: 01/22/18 Chief Complaint: Back pain History of Present Illness: The patient is a 77 M with low back pain. This has been going on for 3 days. Patient denies any injury or inciting event. He has a history of low back pain. He has had spinal injections, most recently about 7 weeks ago. His pain is worse with movement and getting up. EMS gave him some pain medication, and it seems to help. Patient has a history of COPD and had a recent diagnosis of pneumonia. He completed a course of prednisone and Levaquin. He also reports a history of coronary disease, COPD, not on home oxygen, hypertension, hyperlipidemia, pneumonia, AAA, peripheral vascular disease, syncope, BPH, A. fib, pacemaker, and others. He is a smoker and drinks socially. Physical Examination: Blood pressure 119/57. Temperature 101.4. 94% on 2 L. Heart rate 67 and respiratory rate 16. Patient is alert and oriented. No acute distress. Skin appears normal in color without diaphoresis or pallor. Heart regular rate and rhythm. Lungs clear. Abdomen soft and nontender. Lower back is tender to palpation in the mid lumbar spine region. No CVA tenderness. Overlying skin appears normal. Extremities show faint and symmetric DP pulses bilaterally. Good strength and sensation. Test Results: EKG showed paced rhythm at a rate of 68. Chest x-ray showed no acute process. CT abdomen showed nothing acute. Bilateral renal cysts, benign, and a 3.3 cm infrarenal aortic aneurysm. White count 12.1. Hemoglobin 11.3 and platelets 116. BUN 22. INR 1.3. Urinalysis normal. Troponin normal. Lactate 0.8. Cultures pending. Influenza test negative. Emergency Department Course and Treatment: Patient was treated with IV fluids and Tylenol on arrival. Patient has back pain and a history of chronic back pain. His pain may be myofascial, but his fever was concerning. I did check for infectious causes, GI, causes. CT was done and was unremarkable. I also looked for other signs of infection. His chest x-ray and urinalysis were unremarkable. His lactate was normal. INR was subtherapeutic. He had recently stopped his Coumadin because his INR has been high. I reevaluated the patient after his fairly unremarkable workup. His temperature broke. But his pain is worsening, and he required fentanyl. I am concerned the patient may be developing an early sepsis, but I have no source at this point. He does not appear to display signs or symptoms of shock. His lactate is normal. I am concerned given his age, severe symptoms of back pain, inability to ambulate, and because he is SIRS positive, that he should be observed in the hospital. I contacted the hospitalist to evaluate. Treatment Plan: As above Disposition: Admission Impression: 1. Intractable back pain 2. Subtherapeutic INR 3. Fever This note was generated with Accion dictation software. It may contain incorrect words, spelling, and punctuation that were not noted in review of the chart prior to signing ED Disposition - Plan for ED Patient: Chief Complaint: Back Referrals: Stephanie Fuchs MD [Primary Care Provider] - What to do if you have Problems For any increased pain, shortness of breath, bleeding, nausea or vomiting, chest pain, or any unexpected problems, contact your Primary Care Provider. Call [facility] ([phone]) or report to the closest Emergency Room. Call 911 if necessary. 01/22/18 0650 <Electronically signed by Troy Cueva MD> Date Troy Cueva MD Cosigner Signature (If Indicated): Date CC: Stephanie Fuchs MD URINALYSIS, COMPLETE Collected: 01/22/2018 Status: F Source: SAW 3:42 AM [facility] REPOSITORY Order Comment: How was Urine Obtained? CHEMISTRY DEPARTMENT CHAIR TO SPECIFY TYPE CODE TESTS RESULT OUT OF RANGE REFERENCE UNITS LAB L400.3000 Yellow COLOR Normal Yellow LAB L400.3050 Clear Normal CLARITY Clear LAB L400.3200 Normal mg/dl Normal GLUCOSE, UR Normal LAB L400.3300 Negative mg/dL Normal BILIRUBIN URINE Negative LAB L400.3400 Negative mg/dl Normal KETONE UR Negative LAB L400.3465 1.002-1.030 Normal SP.GR. DIPSTX 1.010 LAB L400.3550 5.0 - 8.0 pH UR Normal 6.0 LAB L400.3600 Negative mg/dl PROT Normal DIPSTX Negative LAB L400.3700 Normal mg/dl Normal UROBILI Normal LAB L400.3750 Negative Normal NITRITE UR Negative LAB L400.3780 Negative /ul Normal OCCULT BLOOD-UR Negative LAB L400.3800 Negative /ul LEUK Normal ESTERASE Negative LAB L400.4050 0-5 /hpf WBC 0 Normal SEEN LAB L400.4100 0-5 /hpf 0 Normal RBC-UA SEEN LAB L400.4150 0-5 /hpf SQUAM 0 Normal EPI SEEN LAB L400.4300 None Seen /hpf 0 Normal BACTERIA SEEN LAB L400.4350 <or=2+ /hpf 0 Normal MUCUS, URINE SEEN Performed By: #### L400.0001 #### [facility] [address] [place] [address]. [place], [place], [id number] Observed: 01/22/2018 Status: F Source: [place] CULTURE, URINE 3:42 AM [facility] REPOSITORY Urine Culture Culture exhibits no growth. Performed By: #### M100.0650 #### [facility]. [place], [place], [id number] Observed: 01/21/2018 Status: F Source: [place] INFLUENZA A+B (RAPID 11:45 PM [facility]) REPOSITORY FLU A/B Rapid Negative test results should be confirmed by culture. Order Rapid Viral Culture for Influenzae A+B ([id number]) if clinically indicated. Influenza Ag, Direct Presumptive NEGATIVE for Influenza A/B Antigen (See Note) Performed By: #### M101.0101 #### [facility] [address] [facility]. [place], [place], [address] CBC W/DIFF, AUTOMATED Collected: 01/21/2018 Status: F Source: [place] 11:32 PM [facility] REPOSITORY TYPE CODE TESTS RESULT OUT OF RANGE REFERENCE UNITS LAB L100.1000 4.4-11.0 K/mm3 High WBC 12.1 LAB L100.1200 4.6-6.2 M/mm3 Low RBC 3.92 LAB L100.1300 13.0-16.5 g/dl Low HGB 11.3 LAB L100.1400 40-54 % Low HCT 35.7 LAB L100.1500 80-94 fL Normal MCV 91.1 LAB L100.1600 27.0-32.0 pg Normal MCH 28.8 LAB L100.1700 32-36 g/gl Low MCHC 31.7 LAB L100.1810 11.6-14.6 % High RDW CV 18.8 LAB L100.1820 35.1-43.9 fl High RDW SD 62.9 LAB L100.1900 150-450 K/mm3 Low PLT 116 LAB L100.2000 6.2-12.0 fl Normal MPV 11.0 LAB L100.2100 47-70 % High NEUT% 77.6 LAB L100.2200 19-41 % Low LY% 11.1 LAB L100.2300 0-10 % High MONO% 10.8 LAB L100.2400 0-5 % Normal EO% 0.2 LAB L100.2500 0-1 % Normal BASO% 0.1 LAB L100.2550 0.0-0.9 % Normal IM GRAN % 0.200 Result Comment: IG% - Immature Granulocytes (promyelocytes, myelocytes and metamyelocytes) > 1% indicates that a LEFT SHIFT is Present. LAB L100.2620 2.0-7.7 X10 3/uL High Absolute Neut 9.4 LAB L100.2720 0.83-4.51 X10 3/ul Normal Absolute Lymph 1.34 Performed By: #### L100.0100 #### [facility] [address] [place], [place], [address] PROTHROMBIN TIME W/INR Collected: 01/21/2018 Status: F Source: [place] 11:32 PM [facility] REPOSITORY TYPE CODE TESTS RESULT OUT OF RANGE REFERENCE UNITS LAB L300.4150 11.7-14.9 SECONDS High PROTIME 16.4 LAB L300.4200 Normal INR 1.3 Performed By: #### L300.3900, L300.4310 #### [facility] [address] [place], [place], [address] PARTIAL THROMBOPLAST Collected: 01/21/2018 Status: F Source: [facility] 11:32 PM [facility] REPOSITORY TYPE CODE TESTS RESULT OUT OF REFERENCE UNITS RANGE LAB L300.4310 24.1-36.2 Seconds High PTT 44.5 Performed By: #### L300.3900, L300.4310 #### [facility] [address] [place], [address] COMPREHENSIVE METABOLIC Collected: 01/21/2018 Status: F Source: [place] PROFIL 11:32 PM [facility] REPOSITORY TYPE CODE TESTS RESULT OUT OF RANGE REFERENCE UNITS LAB L501.0100 74-106 mg/dL Normal GLU 94 Result Comment: Please note revised GLUCOSE reference range effective 2017. LAB L501.1000 7-18 mg/dL High BUN 22 LAB L501.1100 0.70-1.30 mg/dL Normal CREAT,SERUM 1.18 Result Comment: The validity of the calculated GFR AND GFRAA in patients over 70 years has not been determined. Clinical correlation is essential. LAB L501.1110 >60 mL/min Normal EST GFR 63 Result Comment: Non- GFR Calc LAB L501.1115 >60 mL/min Normal EST GFR - AA 77 Result Comment: GFR Calc LAB L501.1255 ml/min Normal Estimated CRCL 52.41 LAB L501.1300 10-20 RATIO Normal BUN/CRE 18.6 LAB L501.1500 6.4-8. g/dL Low 2 T PROT 6.1 LAB L501.1800 3.2-5. g/dL Low 0 ALB 2.6 LAB L501.1950 2.2-4. g/dL Normal 2 GLOB 3.5 LAB L501.2000 0.9-2. RATIO Low 4 A/G 0.7 LAB L501.2200 8.5-10 mg/dL Low .1 CA 7.9 LAB L501.4100 15-37 U/L Low AST 9 LAB L501.4305 45-117 U/L Normal ALK P 78 LAB L501.4405 16-61 U/L Normal ALT 19 LAB L501.4600 0.20-1 mg/dL Normal .00 T BILI 0.60 LAB L501.5300 136-14 mmol/L Normal 5 NA 140 LAB L501.5600 3.5-5. mmol/L Normal 1 K 4.4 LAB L501.5900 98-107 mmol/L Normal CL 106 LAB L501.6100 21.0-3 mmol/L Normal 2.0 CO2 27.0 LAB L501.6200 5-15 Normal GAP 7 Performed By: #### L500.4050, L501.4010 #### [facility] [address] [facility] [place], [address] TROPONIN-I Collected: 01/21/2018 Status: F Source: [place] 11:32 PM [facility] REPOSITORY TYPE CODE TESTS RESULT OUT OF RANGE REFERENCE UNITS LAB L501.4010 <0.045 ng/mL Normal 0.017 TROPONIN-I Result Comment: TROPONIN-I EXPECTED VALUES <0.045 Negative 0.045 - 0.590 Consistent with Cardiac Damage > OR = 0.600 Critical Value Not every elevated troponin is indicative of PA. These values should be used with clinical judgement in examining the patient's clinical picture for diagnosis. To establish a diagnosis of PA versus myocardial injury, there must be a demonstrated rise and/or fall in the troponin values, in addition to ischemic symptoms, EKG changes, new regional wall motion abnormality, and/or angiographical evidence. PLEASE NOTE: REFERENCE RANGES EDITED 17 Performed By: #### L500.4050, L501.4010 #### [facility] [address] [facility] [place], [address] LACTIC ACID Collected: 01/21/2018 Status: F Source: [place] 11:32 PM [facility] REPOSITORY Order Comment: Yes/No query for Sepsis Lactate Rule Y TYPE CODE TESTS RESULT OUT OF RANGE REFERENCE UNITS LAB L503.6005 0.4-2.0 mmol/L Normal LACTIC ACID 0.8 Performed By: #### L503.6005 #### [facility] [address] [place], [address] Observed: 01/21/2018 Status: F Source: SAW CULTURE, BLOOD (WB) 11:32 PM [facility] REPOSITORY BC No growth in 5 days. Performed By: #### M200.1000 #### [facility] [address] [place], [address] CHEST 1 VIEW Observed: 01/21/2018 Status: F Source: SAW (PORTABLE) 11:28 PM [facility] H[facility]PITAL REPOSITORY [facility] Imaging Services [address] [place] [address] Chest 1 View (Portable) MR#: [id number] Acct: [id number] Name: HUNTER HENDRICKSON Jr. Rep #: [id number] : 1940 M 77 From: Jose Miguel Aranda MD PCP: Stephanie Fuchs MD Status: PRE ER Study: Chest 1 View (Portable) Date of Exam: 01/21/18 Exam# [id number] Ordering Dr: Troy Cueva MD STUDY: X-RAY CHEST REASON FOR EXAM: Male, 77 years old. Back pain TECHNIQUE: Single frontal view of the chest. COMPARISON: 09/14/2017 FINDINGS: Dual-chamber pacemaker on the left. The lungs are clear and expanded. There is no demonstrated pleural abnormality. Normal size heart. Normal mediastinum and elis. Normal visualized pulmonary arteries. Normal visualized aortic arch and descending thoracic aorta. Normal visualized thoracic spine. Normal visualized ribs, clavicles, and shoulders. There is no demonstrated abnormality of the visualized soft tissue structures of the upper abdomen. RAD/Chest 1 View (Portable) IMPRESSION: No acute pulmonary findings. Electronically Signed: Jose Miguel Aranda MD at 0:37 EDT Tel , Service support , CC: Stephanie Fuchs MD; Troy Cueva MD Mold Filler: Signed ABDOMEN/PELVIS W IV CONT Observed: 01/21/2018 Status: F Source: SAW ONLY 11:28 PM [facility] REPOSITORY [facility] Imaging Services [address] [place] [address] Abdomen/Pelvis W IV Cont ONLY MR#: [id number] Acct: [id number] Name: HUNTER HENDRICKSON Jr. Rep #: [id number] : 1940 M 77 From: Cruz Grant MD PCP: Stephanie Fuchs MD Status: REG ER Study: Abdomen/Pelvis W IV Cont ONLY Date of Exam: 01/22/18 Exam# [id number] Ordering Dr: Troy Cueva MD STUDY: CT ABDOMEN AND PELVIS WITH CONTRAST REASON FOR EXAM: Male, 77 years old. Low back pain. Spasms. Fever RADIATION DOSAGE (If Supplied By Facility): CTDIvol = ( 21.32 ) mGy, DLP = ( 1075.69 ) mGycm TECHNIQUE: Transaxial images were obtained from the dome of the diaphragm to the symphysis pubis without oral contrast. 100ML ml of Isovue 300 contrast was administered. Sagittal and coronal images were reconstructed. Individualized dose optimization techniques were used for this CT. COMPARISON: November 08, 2017 FINDINGS: Fibrotic changes in the left lung base. Calcification of the LAD and circumflex Two 1 cm cysts in the left lower lobe. Dilated intrahepatic biliary radicles. Previous cholecystectomy. The spleen is normal. The pancreas is normal. Both adrenals are normal. Bilateral multiple benign renal cysts with the largest in the right side measuring 4.3 cm. No hydronephrosis. Left renal cortical thinning. 2 or 3 left calyceal calculi The stomach is normal. There is no bowel distention, acute appendicitis or diverticulitis. No constricting lesions are seen in large bowel. The abdominal wall is intact with no hernias. There is no ascites or any free intraperitoneal air. No indication of epiploic appendagitis Mild 3.3 cm infrarenal abdominal dilatation of the aorta just before the bifurcation There is no retrocrural, retroperitoneal or mesenteric adenopathy. Multilevel degenerative changes of the lumbosacral spine in the lower thoracic spine The urinary bladder is normal.--The prostate is normal. There is no inguinal or pelvic adenopathy. There is no inguinal hernia. . CT/Abdomen/Pelvis W IV Cont ONLY IMPRESSION: No acute findings in the abdomen or pelvis. Specifically there is no acute appendicitis or diverticulitis. Multiple bilateral benign renal cysts. 2 or 3 small left calyceal calculi. No hydronephrosis. A 3.3 cm infrarenal aortic aneurysm just before the bifurcation. Electronically Signed: Cruz Grant MD at 1:24 EDT Tel , Service support , CC: Stephanie Fuchs MD; Troy Cueva MD Mold Filler: Signed 6 MINUTE WALK TEST Observed: 12/20/2017 Status: F Source: SALINA 10:01 AM [facility] Pulmonary Services/Neurology [address] [place] [address] MR#: [id number] Acct: [id number] Name: MADHAVIHUNTERLYNN Ortiz Jr. Rep #: [id number] : 1940 77 From: Mal Au DO Referring Dr: Howie Parikh MD Date: Ordering Dr: Sex: M C Location: PSN PSN 6 Minute Walk Test - 6 Minute Walk Test 6 Minute Walk Test: 6 Minute Walk Test PSN:6-Minute Walk Test Start: 12/17/17 12:47 Freq: Status: Active Protocol: RESP.6MINW Document 12/17/17 12:47 MAYTE (Rec: 12/17/17 12:49 MAYTE [id number]) 6 Minute Walk Test Date Performed 12/17/17 Time Performed 12:30 Height 5 ft 10 in Weight: 180 lb Weight in Pounds 180.[address]: Howie Parikh Assistive device used: Cane Pre-test Oxygen Delivery Method Room Air Pulse Ox (%) 93 Pulse Rate (60-100 beats/min) 87 Dyspnea Sujata Scale (0-10) 0 Exertion Sujata Scale (6-20) 6 1st minute Oxygen Delivery Method Room Air Pulse Ox (%) 93 Pulse Rate (60-100 beats/min) 90 2nd minute Oxygen Delivery Method Room Air Pulse Ox (%) 91 Pulse Rate (60-100 beats/min) 91 3rd minute Oxygen Delivery Method Room Air Pulse Ox (%) 90 Pulse Rate (60-100 beats/min) 98 4th minute Oxygen Delivery Method Room Air Pulse Ox (%) 93 Pulse Rate (60-100 beats/min) 100 5th minute Oxygen Delivery Method Room Air Pulse Ox (%) 95 Pulse Rate (60-100 beats/min) 100 6th minute Oxygen Delivery Method Room Air Pulse Ox (%) 95 Pulse Rate (60-100 beats/min) 100 Dyspnea Sujata Scale (0-10) 2 Exertion Sujata Scale (6-20) 13 Post-test Oxygen Delivery Method Room Air Pulse Ox (%) 97 Pulse Rate (60-100 beats/min) 91 Full Laps Walked 18 Partial Lap, Number of Tiles Walked 0 Total Distance Walked (ft) 1062 - Interpretation Interpretation: The patient ambulated 1062 feet over the course of 6 minutes beginning on room air without assistive devices or breaks. Pretesting oxygen saturation was noted to be 93% on room air. With ambulation, the aarti oxygen saturation was 90%. There was no significant exertional oxygen desaturation. - Recommendations Recommendations: There is no indication for the use of supplemental oxygen at this time. 12/20/17 1001 <Electronically signed by Mal Au DO> Date Mal Au DO CC: Date Dictated: 12/20/17 1000 Date Transcribed: 12/20/17 1000 Mold Filler: Mal Au DO Signed PULMONARY VISIT REPORT Observed: 12/16/2017 Status: F Source: SALINA 10:19 AM [facility] REPOSITORY [facility] [address] [place] [address] OFFICE VISIT Date of Service: 12/16/17 MR#: [id number] Acct: [id number] Name: HUNTER HENDRICKSON Jr. Rep #: [id number] : 1940 Provider: Howie Parikh MD Age/Sex: 77/M Location: [facility] Status: Signed Assessment AND Plan Problems 1. Stage 2 moderate COPD by GOLD classification J44.9 2. ARLENE (obstructive sleep apnea) G47.33 3. Central sleep apnea G47.31 4. Tobacco abuse Z72.0 Plan Patient overall appears to be at his baseline. Patient is reporting significant problems with balance and with dyspnea on exertion. After an extended conversation, patient has agreed to complete pulmonary function test and walking oximetry for quantification and clarification of lung function. If patient requires supplemental oxygen, he states he will attempt to use it for approximately 3 months to see if it significantly improves things, but otherwise I am sending it back. Patient continues to refuse any inhaler therapy despite diagnosis of COPD. Patient has been compliant with BiPAP therapy. Continue BiPAP therapy. Obtain complete pulmonary function test and walking oximetry. Orders Orders: [facility] 3 M FU: Chief Complaint: Shortness of breath on exertion Details: Patient is a 77-year-old male, currently under the care of Dr. Arango, who presents for evaluation secondary to shortness of breath on exertion. Since last visit, patient reports that he was seen in the ER secondary to a right DVT. Patient was reinitiated on Coumadin therapy and states the swelling is somewhat improved. Patient was not hospitalized associated with this. Patient was recently off of his Coumadin therapy to facilitate a back injection. Patient continues to refuse any inhaler therapy at this time. Patient feels that his dyspnea on exertion is worsening compared to previous. Patient has been using 2 canes to help with ambulation as he states he has significant balance problems. Patient continues to have a cough on her daily basis productive of brown to white sputum. Patient denies any hemoptysis. No unintentional weight loss noted. Patient does continue to smoke and his normal pace. Patient has no interest in smoking cessation at this time. Patient states I enjoy it and I do not plan to stop. Documentation personally reviewed with the patient Compliance report (November 2017): Compliant 100% of the time for an average of 9 hours 24 minutes on BiPAP 14/8 cm of water with an average AHI of 5.7 Intake Vital Signs12/16/17 Height 5 ft 10 in 12/16/17 Weight: 79.379 kg Intake Visit Reasons: 3 M FU Chief Complaint: sleep apnea DME Vendor: [employer] Accompanied by: Allergies lactose Allergy (Severe, Verified 10/20/17 12:54) unknown Penicillins Allergy (Severe, Verified 10/20/17 12:54) Anaphylaxis adhesive Allergy (Verified 10/20/17 12:54) Rash Sulfa (Sulfonamide Antibiotics) Allergy (Verified 10/20/17 12:54) Unknown diazepam [From Valium] Adverse Reaction (Verified 10/20/17 12:54) hyper opposite effect desired niacin [From Niaspan Extended-Release] Adverse Reaction (Verified 10/20/17 12:54) low bp simvastatin Adverse Reaction (Verified 10/20/17 12:54) Pain in joints Medications Acetaminophen/Diphenhydramine [Tylenol Pm Ex-Strength Caplet] 500 mg PO QHS 06/18/17 [History Confirmed 10/20/17] Amlodipine [Norvasc] 2.5 mg PO DAILY 06/18/17 [History Confirmed 10/20/17] Atorvastatin Calcium [Lipitor] 40 mg PO QHS 06/18/17 [History Confirmed 10/20/17] Cholecalciferol (Vitamin D3) [Vitamin D3] 1 tab PO DAILY 06/18/17 [History Confirmed 10/20/17] Cyanocobalamin [Vitamin B12] 1 tab PO DAILY 06/18/17 [History Confirmed 10/20/17] Donepezil HCl 5 mg PO DAILY 06/18/17 [History Confirmed 10/20/17] Melatonin 10 mg PO QHS 06/18/17 [History Confirmed 10/20/17] Metoprolol Tartrate 25 mg PO BID 06/18/17 [History Confirmed 10/20/17] Omeprazole 20 mg PO DAILY 06/18/17 [History Confirmed 10/20/17] Pregabalin [Lyrica] 300 mg PO DAILY 06/18/17 [History Confirmed 10/20/17] Sertraline HCl [Zoloft] 50 mg PO BID 06/18/17 [History Confirmed 10/20/17] Vit A/Vit C/Vit E/Zinc/Copper [Preservision Areds Softgel] 1 ea PO BID 06/18/17 [History Confirmed 10/20/17] Warfarin [Coumadin (PBKC)] 1 - 1.5 mg PO DAILY 06/18/17 [History Confirmed 10/20/17] loratadine 10 mg tablet 10 mg PO QDAY PRN 10/11/17 [History Confirmed 10/20/17] naproxen 500 mg tablet 500 mg PO BID 10/11/17 [History Confirmed 10/20/17] Cephalexin [Keflex] 500 mg PO Q6 #40 cap 10/20/17 [Rx] PFSH Medical History Shortness of breath (Acute) Aspiration pneumonia (Acute) Tobacco abuse (Chronic) AAA (abdominal aortic aneurysm) (Chronic) PVD (peripheral vascular disease) (Chronic) Palpitations (Acute) Long-term use of high-risk medication (Chronic) Dizziness and giddiness (Acute) Syncope (Acute) Cough (Acute) Dyspnea (Acute) Bronchitis (Acute) Stage 2 moderate COPD by GOLD classification (Chronic) Acute respiratory failure with hypoxia (Acute) Malaise and fatigue (Acute) ARLENE (obstructive sleep apnea) (Chronic) Central sleep apnea (Chronic) Respiratory failure with hypoxia (Resolved) Unstable angina (Acute) Chest pain (Acute) Cardiomyopathy (Chronic) SSS (sick sinus syndrome) (Chronic) Autonomic dysfunction (Chronic) HLD (hyperlipidemia) (Chronic) PAD (peripheral artery disease) (Chronic) Acute kidney injury (Acute) Sepsis (Resolved) Community acquired pneumonia (Chronic) Coronary artery disease (Chronic) BPH (benign prostatic hypertrophy) with urinary obstruction (Chronic) Depressive disorder (Chronic) HTN (hypertension) (Chronic) Atrial fibrillation (Chronic) GERD (gastroesophageal reflux disease) (Chronic) Pacemaker (Chronic) Nephrolithiasis (Chronic) Personality disorder (Chronic) Surgical History S/P TURP (status post transurethral resection of prostate) (Resolved) pacemaker implantation (Resolved) History of inguinal hernia repair (Resolved) History of hemorrhoidectomy (Resolved) History of prostatectomy (Resolved) right ochiectomy (Resolved) History of appendectomy (Resolved) S/P PTCA (percutaneous transluminal coronary angioplasty) (Chronic) History of orchiectomy, unilateral (Chronic) Family History Father CAD (coronary artery disease) Mother Breast cancer Arthritis CAD (coronary artery disease) Hypertension Sister CVA (cerebral vascular accident) Diabetes Hypertension Son CAD (coronary artery disease) Hypertension Social History Smoking Status: Current every day smoker second hand exposure: Yes alcohol intake: never substance use type: does not use Review of Systems Const CONSTITUTIONAL: Positive fatigue; negative anorexia, body ache, chills, daytime sleepiness, fever(s), night sweats, oral thrush, stops breathing during sleep, weight loss, sleeping in chair, weight loss, weight gain, frequent colds, seasonal allergies, other, headache(s) or orthopnea EETM Ear Nose Throat Mouth: Positive hearing normal; negative hard of hearing, hoarseness, dry mouth in morning, change in vision, itchy eyes, eye pain, swallowing Difficulty, ear pain, nose bleed, headache(s), mouth pain, nasal congestion, nasal discharge, post nasal drip, sinus pain, sinus pressure, sore throat or other Cardio Cardiovascular: Negative chest pain, chest pain at rest, chest pain with activity, irregular heart rhythm, edema, shortness of breath when lying down, palpitations, murmur or other Resp Respiratory: Positive as per HPI, shortness of breath shortness of breath: Positive with activity, wheezing and cough cough: Positive productive color: Positive brown; negative pain with cough, chest congestion, chest tightness, pain on inspiration, inhalers, increase use of rescue inhalers, snoring, apnea or other Gastro Gastrointestional: Negative bloody stools, change in appetite, difficulty swallowing, reflux, hematemesis, melena stool, loose stool, constipation or other Genitourinary: Negative blood in urine, nocturia, pain with urination or other Musc Musculoskeletal: Negative body pain, back pain, neck pain or other Skin/Breast Skin/Breast: Negative dry skin, itching, rash, unusual bruising, breast lump or other Neuro Neurological: Negative restless legs, confusion, weakness or other Psych Psychocological: Negative abnormal sleep pattern, anxiety, thoughts of hurting self/others, hopelessness or other Lymph Lymphatic: Negative easy bleeding, easy bruising, swollen lymph nodes or other Exam Const Constitutional: Positive conversant, cooperative, in no acute respiratory distress, well developed, well nourished, good hygiene, dyspenic and smells of smoke; negative wearing supplemental oxygen Head Head: Positive normocephalic and atraumatic; negative cyanosis of lips/distal nose, frontal sinus tenderness or maxillary sinus tenderness Eyes Eye: Positive clear conjunctiva; negative nystagmus, scleral abnormality or cataract present Ears Ear: Positive hearing normal and external ears normal; negative hard of hearing Nose Nose: Positive external nose normal, septum normal and no nasal discharge; negative epistaxis or nasal polyp Mouth Mouth: Positive oral mucosae normal, no lesions, dentures and posterior oropharynx is adequate; negative post nasal drip, malodorous breath or oral thrush present Mallampati Score: II: Mallampati Score Neck Neck: Positive normal visual inspection, full ROM and trachea midline; negative lymphadenopathy or JVD Chest Wall Chest: Positive symmetric chest movement and increased A/P diameter; negative crepitus or tenderness Resp lung sounds: Positive diminished, wheeze present on forced exhalation and prolonged expiratory time; negative wheezes, rhonchi, rales, use of accessory muscles or dullness to percussion Cardio Cardiac: Positive regular rate, regular rhythm, S1 normal and S2 normal; negative murmur, rub or gallop GI GI: Positive normal to inspection and normal bowel sounds; negative distended, ascites or epigastric tenderness Genitourinary: Positive deferred Musc Musculoskeletal: Positive using an assistive device for ambulation (2 canes); negative kyphosis or scoliosis Skin Pulmonary Skin Exam: Positive intact and dermal atrophy; negative rash, lesion, ulcers or erythema Pulses Pulse: Yes radial pulses present Extremities Extremities: Yes capillary refill normal, Yes clubbing, No cyanosis, No edema, No stasis dermatitis Neuro Neurologic: Yes conversant, Yes no focal neuro deficits, Yes normal concentration, Yes understands questions, Yes cooperative, Yes normal cognition, Yes normal coordination Lymph Lymphatic: No lymphadenopathy Psych Appearance: Positive grossly normal Mental Status: Positive mental status grossly normal Mood: Positive congruent mood Affect: Positive normal affect Coding Level of Care Code Off vis,est,level 4 Diagnoses Stage 2 moderate COPD by GOLD classification J44.9 ARLENE (obstructive sleep apnea) G47.33 Central sleep apnea G47.31 Tobacco abuse Z72.0 12/16/17 1019 <Electronically signed by Howie Parikh MD> Date Howie Parikh MD Cosigner Signature: Date (if applicable) CC: Apollo Arango MD PT Collected: 12/10/2017 Status: F Source: EPISCOPALIAN 7:41 AM [facility] SYSTEM REPOSITORY TYPE CODE TESTS RESULT OUT OF RANGE REFERENCE UNITS LAB [id number](LO 1.0-1.2 INC) Normal INR 1.1 Result Comment: INR Recommended Therapeuptic Ranges: Prophylaxis/treatment of DVT and PE?2.0-3.0 Prevention of systemic embolism?.2.0-3.0 Mechanical prosthetic values?2.5-3.5 CRITICAL VALUES?.>4.0 LAB [id number](LOINC) 11.6-14.6 second(s) Normal 13.3 PT Performed By: #### [id number] #### [facility] [address] [place] [id number] EXTREMITY LOWER Observed: 12/09/2017 Status: F Source: SALINA WITHOUT CONTRA 6:30 AM [facility] REPOSITORY [facility] Imaging Services [address] [place] [address] Extremity Lower without Contra MR#: [id number] Acct: [id number] Name: HUNTER HENDRICKSON Jr. Rep #: [id number] : 1940 M 77 From: Stef Carlton MD PCP: Stephanie Fuchs MD Status: REG CLI Study: Extremity Lower without Contra Date of Exam: 12/09/17 Exam# [id number] Ordering Dr: Stephanie Fuchs MD STUDY: CT LOWER EXTREMITY OF THE RIGHT TIBIA AND FIBULA WITHOUT INTRAVENOUS CONTRAST ADMINISTRATION. REASON FOR EXAM: Male, 77 years old. The patient as a history of right calf swelling. RADIATION DOSAGE (If Supplied By Facility): CTDIvol = ( 15.35 ) mGy, DLP = ( 983.16 ) mGycm. Individualized dose optimization techniques were used for this CT.? TECHNIQUE: Multiple axial tomographic images were obtained from the level of the knee joint down to the ankle joint without intravenous contrast administration. Sagittal and coronal reconstruction performed as well. COMPARISON: Comparison is made with prior study dated November 04, 2017. FINDINGS: Stable appearance of the complex Grover's cyst more prominent on the medial side. The previously seen intramuscular collections involving the soleus muscle and medial aspect of the gastrocnemius muscle have decreased in size. The largest fluid collection presently measures 1.3 cm x 2.3 cm. There is less infiltration of the subcutaneous fat at this time as compared to prior study. There is also evidence of the less skin thickening. The underlying fibula and tibia are unremarkable. CT/Extremity Lower without Contra IMPRESSION: Interval decrease in size of the fluid collections within the soleus muscle and gastrocnemius muscle. Further follow-up is recommended. Stable complex Grover's cyst more prominent on the medial side. Electronically Signed: Stef Carlton MD at 15:06 EDT Tel [phone], Service support , CC: Stephanie Fuchs MD Mold Filler: Signed PACEMAKER CHECK Observed: 11/24/2017 Status: F Source: SALINA 5:28 PM [facility] REPOSITORY [facility] [address] [place] [address] Pacemaker Check Date of Service: 11/24/17 1045 MR#: [id number] Acct: [id number] Name: HUNTER HENDRICKSON Jr. Rep #: [id number] : 1940 From: Destinee Jaime Age/Sex: 77/M Location: [facility] Status: Signed Billing Codes PM Device Codes: PM Dev Prog Eval, Dual 11/24/17 1048 <Electronically signed by Destinee Jaime > Date Destinee Jaime 11/24/17 1728<Electronically signed by Apollo Lindsey MD> Cosigner Signature: Date (if applicable) Apollo Lindsey MD CC: PT/INR POC ORDER Collected: 11/12/2017 Status: F Source: EPISCOPALIAN 8:33 AM [facility] REPOSITORY TYPE CODE TESTS RESULT OUT OF RANGE REFERENCE UNITS LAB CD:[id number](LOINC) Normal Collected PT/INR POC Order Performed By: #### [id number] #### [facility] POC Subsection [facility] [place] [id number] PT/INR CAPILLARY Collected: 11/12/2017 Status: F Source: EPISCOPALIAN 8:29 AM [facility] REPOSITORY TYPE CODE TESTS RESULT OUT OF RANGE REFERENCE UNITS LAB [id number](LO 8.0-11.0 second(s) INC) High PT POC 15.0 LAB [id number](LO 1.0-1.2 INC) High INR POC 1.3 Result Comment: Source Capillary Performed By: #### [id number] #### [facility] POC Subsection [facility] [place] [address] BASIC METABOLIC Collected: 11/08/2017 Status: F Source: SAW PROFILE (BMP) 5:11 PM [facility] REPOSITORY TYPE CODE TESTS RESULT OUT OF RANGE REFERENCE UNITS LAB L501.0100 74-106 mg/dL Normal GLU 95 Result Comment: Please note revised GLUCOSE reference range effective 2017. LAB L501.1000 7-18 mg/dL High BUN 23 LAB L501.1100 0.70-1.30 mg/dL High CREAT,SERUM 1.66 Result Comment: The validity of the calculated GFR AND GFRAA in patients over 70 years has not been determined. Clinical correlation is essential. LAB L501.1110 >60 mL/min Low EST GFR 43 Result Comment: Non- GFR Calc LAB L501.1115 >60 mL/min Low EST GFR - AA 52 Result Comment: GFR Calc LAB L501.1300 10-20 RATIO Normal BUN/CRE 13.9 LAB L501.2200 8.5-10.1 mg/dL CA Normal 8.9 LAB L501.5300 136-145 mmol/L NA Normal 143 LAB L501.5600 3.5-5.1 mmol/L K Normal 3.9 LAB L501.5900 98-107 mmol/L High CL 109 LAB L501.6100 21.0-32.0 mmol/L Normal CO2 28.0 LAB L501.6200 5-15 Normal GAP 6 Performed By: #### L500.2500 #### [facility] [address] [place], [place], [id number] CBC W/DIFF, AUTOMATED Collected: 11/08/2017 Status: F Source: [place] 5:11 PM [facility] REPOSITORY TYPE CODE TESTS RESULT OUT OF RANGE REFERENCE UNITS LAB L100.1000 4.4-11.0 K/mm3 Normal WBC 9.4 LAB L100.1200 4.6-6.2 M/mm3 Low RBC 4.56 LAB L100.1300 13.0-16.5 g/dl Low HGB 12.8 LAB L100.1400 40-54 % Normal HCT 40.8 LAB L100.1500 80-94 fL Normal MCV 89.5 LAB L100.1600 27.0-32.0 pg Normal MCH 28.1 LAB L100.1700 32-36 g/gl Low MCHC 31.4 LAB L100.1810 11.6-14.6 % High RDW CV 17.8 LAB L100.1820 35.1-43.9 fl High RDW SD 58.6 LAB L100.1900 150-450 K/mm3 Normal PLT 217 LAB L100.2000 6.2-12.0 fl Normal MPV 10.9 LAB L100.2100 47-70 % Normal NEUT% 68.1 LAB L100.2200 19-41 % Low LY% 18.9 LAB L100.2300 0-10 % High MONO% 10.9 LAB L100.2400 0-5 % Normal EO% 1.7 LAB L100.2500 0-1 % Normal BASO% 0.3 LAB L100.2550 0.0-0.9 % Normal IM GRAN % 0.100 Result Comment: IG% - Immature Granulocytes (promyelocytes, myelocytes and metamyelocytes) > 1% indicates that a LEFT SHIFT is Present. LAB L100.2620 2.0-7.7 X10 3/uL Normal Absolute Neut 6.4 LAB L100.2720 0.83-4.51 X10 3/ul Normal Absolute Lymph 1.78 Performed By: #### L100.0100, L101.9900 #### [facility] [address] [facility] [place], [address] ERYTHROCYTE SED RATE Collected: 11/08/2017 Status: F Source: [place] 5:11 PM [facility] REPOSITORY TYPE CODE TESTS RESULT OUT OF RANGE REFERENCE UNITS LAB L102.0000 0-20 mm/hr High SED RATE 24 Performed By: #### L100.0100, L101.9900 #### [facility] [id number] PROTHROMBIN TIME W/INR Collected: 11/08/2017 Status: F Source: [place] 5:11 PM [facility] REPOSITORY TYPE CODE TESTS RESULT OUT OF RANGE REFERENCE UNITS LAB L300.4150 11.7-14.9 SECONDS High PROTIME 17.4 LAB L300.4200 Normal INR 1.4 Performed By: #### L300.3900, L300.4310 #### [facility] [address] [place], [place], [id number] PARTIAL THROMBOPLAST Collected: 11/08/2017 Status: F Source: [place] TIME 5:11 PM [facility] REPOSITORY TYPE CODE TESTS RESULT OUT OF RANGE REFERENCE UNITS LAB L300.4310 24.1-36.2 Seconds Normal PTT 36.1 Performed By: #### L300.3900, L300.4310 #### [facility] [address] [facility] [place], [address] ABDOMEN/PELVIS WITH Observed: 11/08/2017 Status: F Source: [place] CONTRAST 4:44 PM [facility] REPOSITORY [facility] Imaging Services [address] [place] [address] Abdomen/Pelvis WITH Contrast MR#: [id number] Acct: [id number] Name: HUNTER HENDRICKSON Jr. Rep #: [id number] : 1940 M 77 From: Tyler Sharp DO PCP: Apollo Arango MD Status: REG CLI Study: Abdomen/Pelvis WITH Contrast Date of Exam: 11/08/17 Exam# [id number] Ordering Dr: Stephanie Fuchs MD STUDY: CT ABDOMEN AND PELVIS WITH CONTRAST REASON FOR EXAM: Male, 77 years old. Abdominal pain. RADIATION DOSAGE (If Supplied By Facility): CTDIvol = ( 14.83 ) mGy, DLP = ( 1139.55 ) mGycm TECHNIQUE: Transaxial images were obtained from the dome of the diaphragm to the symphysis pubis without oral contrast. 75ML ml of Isovue 300 contrast was administered. Sagittal and coronal images were reconstructed. Individualized dose optimization techniques were used for this CT. COMPARISON: May 31, 2014 FINDINGS: The visualized lung bases are unremarkable. The visualized portions of the heart are within normal limits. Normal liver. There are surgical clips in the gallbladder fossa consistent with a prior cholecystectomy. Normal spleen. There is diffuse atrophy of the pancreas. Normal bilateral adrenal glands. Stable nonenhancing right renal cysts. Stable severe atrophy of the left kidney. Normal visualized stomach. Normal small intestine. There are multiple colonic diverticula consistent with diverticulosis. There is non-visualization of the appendix. There is diffuse atherosclerotic calcification of the abdominal aorta, without a demonstrated aneurysm. Normal inferior vena cava. Normal retroperitoneum. Normal urinary bladder. Normal visualized prostate gland. Normal abdominal wall. There are diffuse degenerative changes of the visualized lumbar spine. CT/Abdomen/Pelvis WITH Contrast IMPRESSION: No acute findings. Status post cholecystectomy, appendectomy. Severe atrophy of the left kidney is again noted. No evidence of small bowel obstruction. Electronically Signed: Tyler Sharp DO at 19:08 EDT Tel , Service support , CC: Stephanie Fuchs MD; Apollo Arango MD Mold Filler: Signed EXTREMITY LOWER WITH Observed: 11/08/2017 Status: F Source: [place] CONTRAST 4:44 PM [facility] REPOSITORY [facility] Imaging Services [address] [place] [address] Extremity Lower WITH Contrast MR#: [id number] Acct: [id number] Name: HUNTER HENDRICKSON Jr. Rep #: [id number] : 1940 M 77 From: Tyler Sharp DO PCP: Apollo Arango MD Status: REG CLI Study: Extremity Lower WITH Contrast Date of Exam: 11/08/17 Exam# [id number] Ordering Dr: Stephanie Fuchs MD STUDY: CT RIGHT FEMUR WITH CONTRAST REASON FOR EXAM: Male, 77 years old. Pain in the right groin RADIATION DOSAGE (If Supplied By Facility): CTDIvol = ( 14.83 ) mGy, DLP = ( 1139.55 ) mGycm TECHNIQUE: Transaxial CT imaging of the femur was performed post contrast administration. The examination was performed with intravenous administration of 75ml ml of Isovue 300 contrast material. Sagittal and coronal images were reconstructed. Individualized dose optimization techniques were used for this CT. COMPARISON: None. FINDINGS: Normal visualized femur. No evidence of inguinal hernia. There is no enhancing abnormality. CT/Extremity Lower WITH Contrast IMPRESSION: No acute findings. No evidence of inguinal hernia. No suspicious lymphadenopathy in the right inguinal region Electronically Signed: Tyler Sharp DO at 19:10 EDT Tel , Service support , CC: Stephanie Fuchs MD; Apollo Arango MD Mold Filler: Signed EXTREMITY LOWER WITH Observed: 11/04/2017 Status: F Source: [place] CONTRAST 1:09 PM [facility] REPOSITORY [facility] Imaging Services [address] [place] [address] Extremity Lower WITH Contrast MR#: [id number] Acct: [id number] Name: HUNTER HENDRICKSON Jr. Rep #: [id number] : 1940 M 77 From: Ras Cheung DO PCP: Apollo Arango MD Status: REG CLI Study: Extremity Lower WITH Contrast Date of Exam: 11/04/17 Exam# [id number] Ordering Dr: Apollo Arango MD PROCEDURE: CT LOWER EXTREMITY RIGHT TIBIA/FIBULA WITH CONTRAST REASON FOR EXAM: Male, 77 years old. Right mid calf swelling, pain TECHNIQUE: Transaxial CT imaging of the tibia/fibula was performed post contrast administration. The examination was performed with intravenous administration of 100 ml of Isovue 300 contrast material. Sagittal and coronal images were reconstructed. COMPARISON: None. FINDINGS: Normal tibia and fibula, without a periosteal, cortical or cancellous marrow abnormality. There is mild cutaneous edema of the lower leg. Mild effusion at the knee. Possible complex Grover's cyst measuring 5.8 x 2.5 cm with thickened wall. There is a 4.2 x 15.1 cm intramuscular collection noted along the longitudinal axis of the medial head of the gastrocnemius. A smaller intramuscular collection is also noted of the soleus measuring 1.6 cm extending 6.5 cm in the craniocaudal distance. Both collections that are slightly thickened possibly enhancing rim. Complex hematomas or abscesses cannot be excluded. CT/Extremity Lower WITH Contrast IMPRESSION: Mild effusion of the knee. Possible Grover's cyst. Intramuscular collections are noted within the medial head of the gastrocnemius and soleus possibly representing complex hematomas or abscesses. Electronically Signed: Ras Cheung DO at 22:00 EDT Tel [phone], Service support , CC: Apollo Arango MD Mold Filler: Signed VENOUS DUPLEX LOWER Observed: 11/02/2017 Status: F Source: [place] EXTREMITY 11:56 AM [facility] REPOSITORY [facility] Cardiovascular [place] [address] Venous Duplex US, Unilateral 11/01/17 1623 MR#: [id number] Acct: [id number] Name: HUNTER HENDRICKSON Jr. Rep #: [id number] : 1940 77 From: Pete Banuelos MD Attending Dr: Apollo Arango MD Status: REG CLI Ordering Dr: Apollo Arango MD Date: 11/01/17 Location: CVS Sex: M C Admitted: Reason For Study: Leg Mass RIGHT LEFT GSV is normal. CFV is compressible, spontaneous, phasic, CFV is compressible, spontaneous, phasic, competent, and demonstrates normal competent and demonstrates normal augmentation. augmentation. FV is compressible, spontaneous, phasic, competent and demonstrates normal augmentation. POP V is compressible, spontaneous, phasic, competent and demonstrates normal augmentation. T/P Trunk is compressible. PTV is compressible. RT PerV is compressible. Heterogenous, non vascular structure noted RLE extending from medial pop space to mid calf measuring 2.74cm x 4.56cm. Procedure Exam performed in department. A preliminary report was called and/or faxed to Dr. Arango. Interpretation Summary Deep veins of the right lower extremity are patent and compressible segmentally. There is no evidence of right lower extremity deep vein thrombosis. Valvular competence appears intact within the proximal deep venous system on the right . The right greater saphenous vein appears patent and compressible segmentally. A non-vascular, heterogeneous structure is noted in the right medial popliteal space, extending to the right mid-calf, measuring 2.74 cm x 4.56 cm. This may represent a hematoma or ruptured popliteal cyst. Clinical correlation is advised. Ordering Physician: Apollo Arango Referring Physician: Apollo Arango Performed By: Marisela Bowers, RDCS, RVT 11/02/17 1156 Date Pete Banuelos MD CC: Apollo Arango; Apollo Arango MD Date Dictated: 11/01/17 1623 Date Transcribed: 11/02/17 1156 Mold Filler: Signed KNEE 3 VIEWS Observed: 10/25/2017 Status: F Source: [place] 12:05 PM [facility] REPOSITORY [facility] Imaging Services [address] [place] [address] Knee 3 Views MR#: [id number] Acct: [id number] Name: HUNTER HENDRICKSON Jr. Rep #: [id number] : 1940 M 77 From: Mendoza Chavez MD PCP: Apollo Arango MD Status: REG CLI Study: Knee 3 Views Date of Exam: 10/25/17 Exam# [id number] Ordering Dr: Apollo Arango MD STUDY: X-RAY - RIGHT KNEE REASON FOR EXAM: Male, 77 years old. Atraumatic knee pain and swelling. TECHNIQUE: 3 view(s) of the knee. COMPARISON: None. FINDINGS: There is generalized osteopenia. Normal visualized distal femur. Normal visualized proximal tibia and fibula. Normal proximal tibiofibular articulation. There is mild arthrosis of the medial compartment. Normal lateral femorotibial compartment. Normal patellofemoral articulation. The soft tissue structures are unremarkable. RAD/Knee 3 Views IMPRESSION: Osteopenia with mild medial compartmental arthrosis. Electronically Signed: Mendoza Chavez MD at 17:26 EDT , Service support , CC: Apollo Arango MD Mold Filler: Signed VENOUS DUPLEX LOWER Observed: 10/23/2017 Status: F Source: [place] EXTREMITY 2:51 PM [facility] REPOSITORY [facility] Cardiovascular Services [address] [place] [address] Venous Duplex US, Unilateral 10/21/17 1126 MR#: [id number] Acct: [id number] Name: HUNTER HENDRICKSON Jr. Rep #: [id number] : 1940 76 From: Pete Banuelos MD Attending Dr: Meena Mckinley DO Status: REG CLI Ordering Dr: Meena Mckinley DO Date: 10/21/17 Location: CVS Sex: M C Admitted: Reason For Study: LEG PAIN AND SWELLING RIGHT LEFT GSV is normal. CFV is compressible, spontaneous, phasic, CFV is compressible, spontaneous, phasic, competent, and demonstrates normal competent and demonstrates normal augmentation. augmentation. FV is compressible, spontaneous, phasic, competent and demonstrates normal augmentation. POP V is compressible, spontaneous, phasic, competent and demonstrates normal augmentation. T/P Trunk is compressible. PTV is compressible. RT PerV is compressible. Heterogenous structure RLE extending from medial pop space to mid calf. Measures 3.5 x 1.6 cm in transverse view. Non-vascular. Procedure Exam performed in department. A preliminary report was called and/or faxed to Dr. Arango. Interpretation Summary Deep veins of the right lower extremity are patent and compressible segmentally. There is no evidence of right lower extremity deep vein thrombosis. Valvular competence appears intact within the proximal deep venous system on the right . The right greater saphenous vein appears patent and compressible segmentally. A non-vascular, heterogeneous structure is noted in the right medial popliteal space extending to the right mid-calf, and measuring 3.5 cm x 1.6 cm in transverse dimension. This may represent a popliteal cyst. Clinical correlation is advised. Ordering Physician: Meena Mckinley Referring Physician: Apollo Arango Performed By: Tamra Latham RVT 10/23/17 1450 Date Pete Banuelos MD CC: Apollo Arango MD; Meena Mckinley DO Date Dictated: 10/21/17 1126 Date Transcribed: 10/23/171449 Mold Filler: Signed DISCHARGE INSTRUCTION Observed: 10/20/2017 Status: F Source: [place] 3:31 PM [facility] REPOSITORY [facility] Medical Records Department [address] [place] [address] Discharge Instruction 10/20/17 1527 MR#: [id number] Acct: [id number] Name: HUNTER HENDRICKSON . Rep #: [id number] : 1940 76 From: Meena Mckinley DO PCP: Apollo Arango MD Status: REG ER ED Disposition - Plan for ED Patient: Chief Complaint: Edema Instructions: ED Leg Swelling Unilateral Prescriptions: Cephalexin [Keflex] 500 mg PO Q6 #40 cap Referrals: Apollo Arango MD [Primary Care Provider] - 3-5 Days Additional Instructions: return tomorrow for leg ultrasound What to do if you have Problems For any increased pain, shortness of breath, bleeding, nausea or vomiting, chest pain, or any unexpected problems, contact your Primary Care Provider. Call [facility] ([phone]) or report to the closest Emergency Room. Call 911 if necessary. 10/20/17 1531 <Electronically signed by Meena Mckinley DO> Date Meena Mckinley DO Cosigner Signature (If Indicated): Date CC: Apollo Arango MD EMERGENCY DEPARTMENT Observed: 10/20/2017 Status: F Source: [place] SUMMARY 3:27 PM [facility] REPOSITORY [facility] Medical Records Department [address] [place] [address] Emergency Department Summary 10/20/17 1524 MR#: [id number] Acct: [id number] Name: HUNTER HENDRICKSON Jr. Rep #: [id number] : 1940 76 From: Meena Mckinley DO PCP: Apollo Arango MD Status: REG ER - ER Visit Summary Date of Service: 10/20/17 Chief Complaint: [Swelling right leg] History of Present Illness: The patient is a 76 M [presents to the emergency department with complaint of swelling to his right leg that started yesterday. Patient denies any trauma. Patient denies any chest pain or shortness of breath. Patient states that he is on Coumadin normally however 2 days ago he discontinued it because he scheduled in 2 days to have a spinal injection. Patient denies recent travel or surgery. Patient does have a history of remote DVT many years ago. Patient has history of hypertension coronary artery disease.] Physical Examination: [HEENT-PERRLA, EOMI. Cranial nerves II through XII grossly intact. TMs clear. Mucous membranes moist. No adenopathy. Cardiovascular-regular rate and rhythm without murmur or ectopy Lungs-clear to auscultation, chest wall stable without crepitus or subcu emphysema Abdomen-normoactive bowel sounds, soft, nontender, no rebound or rigidity, no peritoneal signs. Extremities-intact 4, normal range of motion, normal pulses, atraumatic]. Right leg-patient has some diffuse soft tissue swelling about the right calf and the foot. There is minimal faint erythema of the calf and right lower extremity down to the foot. No lymphangitic streaking noted. Patient does have a positive Homans sign. No ropes or cords palpated. Patient has normal dorsal pedal and posterior tibial pulses as well as popliteal pulses. Test Results: [CBC with differential obtained showed normal white count 7.9, hemoglobin 12.7, hematocrit 41, platelets 152. Chemistries unremarkable. D-dimer was 2.42 and his INR was 1.7.] Emergency Department Course and Treatment: [I am unable to obtain a venous Doppler of the patient's extremity today due to the fact that it is not available. Patient was given 1 dose of Xarelto in the emergency department and he will reschedule his spinal injections.] Treatment Plan: [Plan is to have patient return tomorrow to have a venous Doppler of his right lower extremity]. I will also start patient on Keflex empirically as it is unclear the etiology of his faint erythema and it is possible he may be developing an early cellulitis. Disposition: [Discharged home in stable condition.] Impression: [Right leg swelling] This note was generated with Accion dictation software. It may contain incorrect words, spelling, and punctuation that were not noted in review of the chart prior to signing ED Disposition - Plan for ED Patient: Chief Complaint: Edema Referrals: Apollo Arango MD [Primary Care Provider] - What to do if you have Problems For any increased pain, shortness of breath, bleeding, nausea or vomiting, chest pain, or any unexpected problems, contact your Primary Care Provider. Call [facility] ([phone]) or report to the closest Emergency Room. Call 911 if necessary. 10/20/17 1527 <Electronically signed by Meena Mckinley DO> Date Meena Mckinley DO Cosigner Signature (If Indicated): Date CC: Apollo Arango MD CBC W/DIFF, AUTOMATED Collected: 10/20/2017 Status: F Source: [place] 1:26 PM [facility] REPOSITORY TYPE CODE TESTS RESULT OUT OF RANGE REFERENCE UNITS LAB L100.1000 4.4-11.0 K/mm3 Normal WBC 7.9 LAB L100.1200 4.6-6.2 M/mm3 Normal RBC 4.61 LAB L100.1300 13.0-16.5 g/dl Low HGB 12.7 LAB L100.1400 40-54 % Normal HCT 41.5 LAB L100.1500 80-94 fL Normal MCV 90.0 LAB L100.1600 27.0-32.0 pg Normal MCH 27.5 LAB L100.1700 32-36 g/gl Low MCHC 30.6 LAB L100.1810 11.6-14.6 % High RDW CV 17.9 LAB L100.1820 35.1-43.9 fl High RDW SD 59.4 LAB L100.1900 150-450 K/mm3 Normal PLT 152 LAB L100.2000 6.2-12.0 fl Normal MPV 11.8 LAB L100.2100 47-70 % Normal NEUT% 68.6 LAB L100.2200 19-41 % Normal LY% 20.1 LAB L100.2300 0-10 % Normal MONO% 9.3 LAB L100.2400 0-5 % Normal EO% 1.5 LAB L100.2500 0-1 % Normal BASO% 0.4 LAB L100.2550 0.0-0.9 % Normal IM GRAN % 0.100 Result Comment: IG% - Immature Granulocytes (promyelocytes, myelocytes and metamyelocytes) > 1% indicates that a LEFT SHIFT is Present. LAB L100.2620 2.0-7.7 X10 3/uL Normal Absolute Neut 5.4 LAB L100.2720 0.83-4.51 X10 3/ul Normal Absolute Lymph 1.58 Performed By: #### L100.0100 #### [facility] [address] [place], [address] BASIC METABOLIC Collected: 10/20/2017 Status: F Source: [place] PROFILE ([facility]) 1:26 PM [facility] REPOSITORY TYPE CODE TESTS RESULT OUT OF RANGE REFERENCE UNITS LAB L501.0100 74-106 mg/dL Normal GLU 103 Result Comment: Fasting Glucose result from 100 to 125 mg/dL suggests IMPAIRED HOMEOSTASIS per A.D.A. criteria. Please note revised GLUCOSE reference range effective 2017. LAB L501.1000 7-18 mg/dL High BUN 23 LAB L501.1100 0.70-1.30 mg/dL High CREAT,SERUM 1.38 Result Comment: The validity of the calculated GFR AND GFRAA in patients over 70 years has not been determined. Clinical correlation is essential. LAB L501.1110 >60 mL/min Low EST GFR 53 Result Comment: Non- GFR Calc LAB L501.1115 >60 mL/min Normal EST GFR - AA 64 Result Comment: GFR Calc LAB L501.1255 ml/min Normal Estimated CRCL 45.55 LAB L501.1300 10-20 RATIO Normal BUN/CRE 16.7 LAB L501.2200 8.5-10 mg/dL Low .1 CA 8.3 LAB L501.5300 136-14 mmol/L Normal 5 NA 145 LAB L501.5600 3.5-5. mmol/L Normal 1 K 4.4 LAB L501.5900 98-107 mmol/L High CL 112 LAB L501.6100 21.0-3 mmol/L Normal 2.0 CO2 26.0 LAB L501.6200 5-15 Normal GAP 7 Performed By: #### L500.2500 #### [facility] [address] [place], [place], [address] PARTIAL THROMBOPLAST Collected: 10/20/2017 Status: F Source: [place] TIME 1:26 PM [facility] REPOSITORY TYPE CODE TESTS RESULT OUT OF REFERENCE UNITS RANGE LAB L300.4310 24.1-36.2 Seconds High PTT 37.7 Performed By: #### L300.4310, L300.8000 #### [facility] [address] [place], [address] D-DIMER QUANTITATIVE Collected: 10/20/2017 Status: F Source: [place] (DVT/PE) 1:26 PM [facility] REPOSITORY TYPE CODE TESTS RESULT OUT OF RANGE REFERENCE UNITS LAB L300.8000 0.27-0.49 FEU/ug/m High alert D-DIMER 2.42 QUANT Result Comment: D-Dimer ELEVATED (>0.49): Additional studies and clinical assessments are indicated to conclude diagnosis of: Deep Vein Thrombosis (DVT) or Pulmonary Embolism (PE) CRITICAL VALUE VERIFIED. CALLED TO JULIUS JEROME 10/20/17 1412 [place]. RESULTS READ BACK BY SAME . Performed By: #### L300.4310, L300.8000 #### [facility] [address] [place], [address] PROTHROMBIN TIME W/INR Collected: 10/20/2017 Status: F Source: [place]W 1:26 PM [facility] REPOSITORY TYPE CODE TESTS RESULT OUT OF RANGE REFERENCE UNITS LAB L300.4150 11.7-14.9 SECONDS High PROTIME 20.4 LAB L300.4200 Normal INR 1.7 Performed By: #### L300.3900 #### [facility] [address] [place], [address] CARDIOLOGY VISIT Observed: 10/11/2017 Status: F Source: [place] REPORT 3:39 PM [facility] REPOSITORY [facility] [address] [place] [address] OFFICE VISIT Date of Service: 10/11/17 MR#: [id number] Acct: [id number] Name: MADHAVIHUNTERLYNN Ortiz Jr. Rep #: [id number] : 1940 Provider: MARILYN Bowers Age/Sex: 76/M [place] [facility] Status: Signed with Addenda ADDENDUM by MARILYN Bowers on 10/11/17 at 1539 Addendum entered and electronically signed by BERENICE Armenta 10/11/17 15:39: Assessment AND Plan 1. Chest pain, unspecified type R07.9 Plan - BERENICE Armenta His echocardiogram from March 2016 showed an ejection fraction of 50%. His stress test from February 2017 showed no peak EKG changes and was negative for stress-induced myocardial ischemia. His symptoms remain atypical. It was recommended the patient undergo repeat stress test for further evaluation of this. He declines at this time. He states I am not concerned about it. He will continue current medications and we will continue to monitor. 2. Shortness of breath R06.02 Plan - BERENICE Armenta Patient does describe some shortness of breath mainly noted with activity such as going up and down steps. His echocardiogram from March 2016 showed ejection fraction of 50%, mild mitral valve insufficiency, mild tricuspid valve insufficiency, and an RVSP of 37 mmHg. His stress test from December 2015 was negative for stress-induced myocardial ischemia and heart catheterization from September 2009 showed patent stents and minimal coronary artery disease. It was recommended that he undergo repeat echocardiogram to evaluate pulmonary pressures and valvular status. He declined at this time. His shortness of breath does not appear to be related to fluid volume overload. He will continue current medications and we will continue to monitor this. 3. Coronary artery disease I25.10 S/P LAD and LCx stenting BERENICE Gonzalez Patient's heart catheterization from September 2009 showed patent LAD and LCX stents. Shortness of breath and chest pain it was recommended he repeat stress test and I will test at this time. He will continue current medications and we will continue to monitor this. He was instructed to contact office if he notices any worsening or increasing symptoms. 4. S/P PTCA (percutaneous transluminal coronary angioplasty) Z98.61 BERENICE Gonzalez He will continue current plan as outlined above. 5. Ischemic cardiomyopathy I25.5 BERENICE Gonzalez Patient's echocardiogram from March 2016 showed ejection fraction 50%. Because of his shortness of breath it was recommended he undergo repeat echocardiogram, he declined repeat. He will continue with current medications. We will continue monitor this through history, exam, and repeat echocardiogram as needed. 6. Sick sinus syndrome I49.5 BERENICE Gonzalez Patient is status post permanent pacemaker for this. His heart rate is well-controlled today in office. We will continue to monitor this. 7. Pacemaker Z95.0 BERENICE Gonzalez Patient's pacemaker/ICD appears to be functioning appropriately. We will continue to monitor this with routine/scheduled follow-ups. 8. Essential hypertension I10 BERENICE Gonzalez Patient does state low blood pressures at home. He notices presyncope and lightheadedness with this. He will decrease his amlodipine to 2.5 mg p.o. daily. He will continue to monitor his blood pressure. He was instructed that if his blood pressure remains low in the morning with this adjustment we can consider adjusting the timing of his amlodipine and/or discontinuing it. 9. Peripheral vascular disease I73.9 BERENICE Gonzalez Patient's carotid duplex ultrasound from August 2012 showed mild (less than 50%) stenosis of right extracranial internal carotid and mild (less than 50%) stenosis of left extracranial internal carotid. He will continue current medications and we will continue to monitor this. Plan Detail Other Medications New: Discontinued: Additional Comments - BERENICE Armenta Thank you for allowing us to participate in the patients plan of care, if you have any questions please do not hesitate to call. This note was generated using a voice recognition system and there may be incorrect words, spelling or punctuation that were not noted when reviewing the office note prior to saving. Follow Up 12 Months (PFM) 6 Months ([facility]) 10/11/17 1197 <Electronically signed by Han NG> Date Han Bowers cc: Apollo Arango MD * Signed HPI HPI Details: HUNTER HENDRICKSON, is a 76 M who presents to the office today for a cardiovascular outpatient follow-up. He has a history of coronary artery disease status post stenting to LAD and LCx remotely, ischemic mediated cardiomyopathy, sick sinus syndrome status post pacemaker placement, PVCs/nonsustained VT, peripheral arterial occlusive disease with carotid artery disease and abdominal aortic disease, hypertension, hyperlipidemia, and autonomic dysfunction. He states fleeting chest pain and episodes of shortness of breath when walking up steps. Pt. denies arm, jaw, or neck discomfort. His exercise tolerance is stable, though minimal. Pt. denies symptoms of palpitations, lightheadedness, dizziness, or syncopal episodes. Pt. denies edema or claudication issues. Pt. denies orthopnea, PND, fever, chills, blood in urine, blood in stool, myalgia, or unexplainable fatigue. He states his home BP at home as been as low as 70/50. He notices feeling pre-syncope with this. He also states feel fatigued with this. He denies any chest pain or SOB with with low blood pressure. Intake Vital Signs10/11/17 Height 5 ft 10 in 10/11/17 Weight: 176 lb 4 oz 10/11/17 Body Mass Index (BMI) 25.2 Intake Visit Reasons: 6 M FU Accompanied by: Is patient in pain?: Yes (chest pain ) Pain scale (1-10): 1 Allergies lactose Allergy (Severe, Verified 09/14/17 10:51) unknown Penicillins Allergy (Severe, Verified 09/14/17 10:51) Anaphylaxis adhesive Allergy (Verified 09/14/17 10:51) Rash Sulfa (Sulfonamide Antibiotics) Allergy (Verified 09/14/17 10:51) Unknown diazepam [From Valium] Adverse Reaction (Verified 09/14/17 10:51) hyper opposite effect desired niacin [From Niaspan Extended-Release] Adverse Reaction (Verified 09/14/17 10:51) low bp simvastatin Adverse Reaction (Verified 09/14/17 10:51) Pain in joints Medications Acetaminophen/Diphenhydramine [Tylenol Pm Ex-Strength Caplet] 500 mg PO QHS 06/18/17 [History Confirmed 10/11/17] Amlodipine [Norvasc] 5 mg PO DAILY 06/18/17 [History Confirmed 10/11/17] Atorvastatin Calcium [Lipitor] 40 mg PO QHS 06/18/17 [History Confirmed 10/11/17] Cholecalciferol (Vitamin D3) [Vitamin D3] 1 tab PO DAILY 06/18/17 [History Confirmed 10/11/17] Cyanocobalamin [Vitamin B12] 1 tab PO DAILY 06/18/17 [History Confirmed 10/11/17] Donepezil HCl 5 mg PO DAILY 06/18/17 [History Confirmed 10/11/17] Melatonin 10 mg PO QHS 06/18/17 [History Confirmed 10/11/17] Metoprolol Tartrate 25 mg PO BID 06/18/17 [History Confirmed 10/11/17] Omeprazole 20 mg PO DAILY 06/18/17 [History Confirmed 10/11/17] Pregabalin [Lyrica] 300 mg PO DAILY 06/18/17 [History Confirmed 10/11/17] Sertraline HCl [Zoloft] 50 mg PO BID 06/18/17 [History Confirmed 10/11/17] Vit A/Vit C/Vit E/Zinc/Copper [Preservision Areds Softgel] 1 ea PO BID 06/18/17 [History Confirmed 10/11/17] Warfarin [Coumadin ([facility])] 2 - 2.5 mg PO DAILY 06/18/17 [History Confirmed 10/11/17] loratadine 10 mg tablet 10 mg PO QDAY PRN 10/11/17 [History Confirmed 10/11/17] naproxen 500 mg tablet 500 mg PO BID 10/11/17 [History Confirmed 10/11/17] [facility] Medical History Tobacco abuse (Chronic) AAA (abdominal aortic aneurysm) (Chronic) PVD (peripheral vascular disease) (Chronic) Palpitations (Acute) Long-term use of high-risk medication (Chronic) Dizziness and giddiness (Acute) Syncope (Acute) Cough (Acute) Dyspnea (Acute) Bronchitis (Acute) Stage 2 moderate COPD by GOLD classification (Chronic) Acute respiratory failure with hypoxia (Acute) Malaise and fatigue (Acute) ARLENE (obstructive sleep apnea) (Chronic) Central sleep apnea (Chronic) Respiratory failure with hypoxia (Resolved) Unstable angina (Acute) Chest pain (Acute) Cardiomyopathy (Chronic) SSS (sick sinus syndrome) (Chronic) Autonomic dysfunction (Chronic) HLD (hyperlipidemia) (Chronic) PAD (peripheral artery disease) (Chronic) Acute kidney injury (Acute) Sepsis (Resolved) Community acquired pneumonia (Chronic) Coronary artery disease (Chronic) BPH (benign prostatic hypertrophy) with urinary obstruction (Chronic) Depressive disorder (Chronic) HTN (hypertension) (Chronic) Atrial fibrillation (Chronic) GERD (gastroesophageal reflux disease) (Chronic) Pacemaker (Chronic) Nephrolithiasis (Chronic) Personality disorder (Chronic) Surgical History S/P TURP (status post transurethral resection of prostate) (Resolved) pacemaker implantation (Resolved) History of inguinal hernia repair (Resolved) History of hemorrhoidectomy (Resolved) History of prostatectomy (Resolved) right ochiectomy (Resolved) History of appendectomy (Resolved) S/P PTCA (percutaneous transluminal coronary angioplasty) (Chronic) History of orchiectomy, unilateral (Chronic) Family History Father CAD (coronary artery disease) Mother Breast cancer Arthritis CAD (coronary artery disease) Hypertension Sister CVA (cerebral vascular accident) Diabetes Hypertension Son CAD (coronary artery disease) Hypertension Social History Smoking Status: Current every day smoker second hand exposure: Yes alcohol intake: never substance use type: does not use ROS Const Const: Negative for fatigue, weakness, body ache, fever(s) or chills ENT ENT: Negative for dizziness Cardio Chest Pain: Yes Palpitations: No Edema: None Muscle aches with walking: None Resp Respiratory: Positive for SOB with activity (Walking up stairs); negative for SOB at rest, SOB orthopnea\SOB lying down or paroxysmal nocturnal dyspnea GI GI: Negative nausea, black,tarry stools, bright, red blood in stools or vomiting blood/hematemesis : Negative for hematuria or frequent nighttime urination/ nocturia Musc Musc: Negative for muscle aches/ myalgia Skin Skin: Negative non-healing lesions or rash Neuro Neuro: Positive for near syncope; negative for weakness, dizziness, lightheadedness, syncope or orthostatic symptoms Endo Endo: Negative for fatigue Allergy Allergy/Immunology: Negative for rash Cardiology Exam Const Appearance: cooperative, healthy appearing, comfortable and no acute distress Orientation: alert, awake and oriented x3 Head Head: normal to inspection Ears: hearing grossly normal bilaterally Nose: external nose normal Face and Sinus: face symmetric Mouth: oral mucosae normal Eyes General: appearance normal, both eyes and all related structures Eyelids: eyelids normal Neck Neck: no JVD and normal visual inspection Carotids: normal carotid upstroke Chest Chest inspection: normal inspection of the chest and normal respiratory effort; negative cough Auscultation: Bilateral: Clear to Auscultation Cardio Rate: regular rate Rhythm: regular rhythm Heart sounds: S2 normal and murmur; negative rub or gallop Murmur: Grade 2/6 and LLSB GI GI: normal to inspection Neuro General: alert, awake, oriented x3 and CN's II-XI intact bilaterally Skin Skin: no rashes or lesions noted Extremities Pulses: Normal: Right Posterior Tibial Pulse, Left Posterior Tibial Pulse, Right Radial Pulse, Left Radial Pulse Lower Extremity Edema: None: Bilateral Psych Psychological: normal affect Supplemental Info Echocardiogram from March 2016 showed an estimated ejection fraction of 50%, mild mitral valve insufficiency, mild to moderate tricuspid valve insufficiency, RVSP of 37 mmHg, and ICD or pacer leads identified within the right atrium and right ventricle. Stress test from December 2015 showed peak exercise EKG with no ST or T-wave changes and nuclear images suggestive of prior infarct, no reversible perfusion to suggest ischemia, and mild left ventricular systolic dysfunction present. Heart catheterization from September 2009 showed left main coronary artery with minimal luminal irregularities, LAD showed patent stent with minimal luminal irregularities, LCx showed patent stent with minimal luminal irregularities, and RCA showed proximal minimal luminal irregularities. Ejection fraction was reported 50%. He is advised to continue aggressive risk factor modification. 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 Carotid duplex ultrasound from August 2012 showed mild (less than 50%) stenosis of right extracranial internal carotid and mild (less than 50%) stenosis of left extracranial internal carotid. Assessment AND Plan 1. Chest pain, unspecified type R07.9 Plan His echocardiogram from March 2016 showed an ejection fraction of 50%. His stress test from December 2015 showed no peak EKG changes and was negative for stress-induced myocardial ischemia. It was recommended the patient undergo repeat stress test for further evaluation of this. He declines at this time. He states I am not concerned about it. He will continue current medications and we will continue to monitor. 2. Shortness of breath R06.02 Plan Patient does describe some shortness of breath mainly noted with activity such as going up and down steps. His echocardiogram from March 2016 showed ejection fraction of 50%, mild mitral valve insufficiency, mild tricuspid valve insufficiency, and an RVSP of 37 mmHg. His stress test from December 2015 was negative for stress-induced myocardial ischemia and heart catheterization from September 2009 showed patent stents and minimal coronary artery disease. It was recommended that he undergo repeat echocardiogram to evaluate pulmonary pressures and valvular status. He declined at this time. His shortness of breath does not appear to be related to fluid volume overload. He will continue current medications and we will continue to monitor this. 3. Coronary artery disease I25.10 S/P LAD and LCx stenting Plan Patient's heart catheterization from September 2009 showed patent LAD and LCX stents. Shortness of breath and chest pain it was recommended he repeat stress test and I will test at this time. He will continue current medications and we will continue to monitor this. He was instructed to contact office if he notices any worsening or increasing symptoms. 4. S/P PTCA (percutaneous transluminal coronary angioplasty) Z98.61 Plan He will continue current plan as outlined above. 5. Ischemic cardiomyopathy I25.5 Plan Patient's echocardiogram from March 2016 showed ejection fraction 50%. Because of his shortness of breath it was recommended he undergo repeat echocardiogram, he declined repeat. He will continue with current medications. We will continue monitor this through history, exam, and repeat echocardiogram as needed. 6. Sick sinus syndrome I49.5 Plan Patient is status post permanent pacemaker for this. His heart rate is well-controlled today in office. We will continue to monitor this. 7. Pacemaker Z95.0 Plan Patient's pacemaker/ICD appears to be functioning appropriately. We will continue to monitor this with routine/scheduled follow-ups. 8. Essential hypertension I10 Plan Patient does state low blood pressures at home. He notices presyncope and lightheadedness with this. He will decrease his amlodipine to 2.5 mg p.o. daily. He will continue to monitor his blood pressure. He was instructed that if his blood pressure remains low in the morning with this adjustment we can consider adjusting the timing of his amlodipine and/or discontinuing it. 9. Peripheral vascular disease I73.9 Plan Patient's carotid duplex ultrasound from August 2012 showed mild (less than 50%) stenosis of right extracranial internal carotid and mild (less than 50%) stenosis of left extracranial internal carotid. He will continue current medications and we will continue to monitor this. Plan Detail Other Medications New: Discontinued: Additional Comments Thank you for allowing us to participate in the patients plan of care, if you have any questions please do not hesitate to call. This note was generated using a voice recognition system and there may be incorrect words, spelling or punctuation that were not noted when reviewing the office note prior to saving. Follow Up 12 Months (PFM) 6 Months ([facility]) Coding Level of Care Code Off vis,est,level 3 Diagnoses Chest pain, unspecified type R07.9 Chest pain type: unspecified Shortness of breath R06.02 Coronary artery disease I25.10 S/P PTCA (percutaneous transluminal coronary angioplasty) Z98.61 Ischemic cardiomyopathy I25.5 Cardiomyopathy type: ischemic Sick sinus syndrome I49.5 Pacemaker Z95.0 Essential hypertension I10 Hypertension type: essential hypertension Peripheral vascular disease I73.9 Coding Level of Care Code Off vis,est,level 3 Diagnoses Chest pain, unspecified type R07.9 Chest pain type: unspecified Shortness of breath R06.02 Coronary artery disease I25.10 S/P PTCA (percutaneous transluminal coronary angioplasty) Z98.61 Ischemic cardiomyopathy I25.5 Cardiomyopathy type: ischemic Sick sinus syndrome I49.5 Pacemaker Z95.0 Essential hypertension I10 Hypertension type: essential hypertension Peripheral vascular disease I73.9 10/11/17 1537 <Electronically signed by Han NG> Date Han NG Cosigner Signature: Date (if applicable) CC: Apollo Arango MD PULMONARY VISIT REPORT Observed: 09/14/2017 Status: F Source: [place] 4:01 PM [facility] [place] REPOS[facility] Pulmonary Medicine [address] [place] [address] OFFICE VISIT Date of Service: 09/14/17 MR#: [id number] Acct: [id number] Name: HUNTER HENDRICKSON Jr. Rep #: [id number] : 1940 Provider: Caitlin Hamilton Age/Sex: 76/M [place] [facility] [place]: Signed Assessment AND Plan 1. Shortness of breath R06.02 Status Acute Plan Deteriorated.. Chest x-ray today did not show any acute pulmonary process, no pneumonia or pleural effusion. Last walking oximetry was completed on the patient in April 2016. It is possible that he has known pulmonary hypertension (RVSP 37 millimeters of mercury) has worsened. His last echocardiogram was completed in March 2016. Discussed the possibility that his shortness of breath and lightheadedness may be related to hypoxia. Also discussed that it would be helpful to repeat a pulmonary stress test and echocardiogram. The patient states that he is not interested in wearing supplemental oxygen. He understands the deleterious effects of hypoxia and reports that his concern is quality of life versus quantity. He is adamant that wearing supplemental oxygen would be uncomfortable and would negatively impact his quality of life, therefore wishes to forego any additional testing that may result in the use of supplemental oxygen. I will have him follow- up with Dr. Parikh in 3 months. I have encouraged the patient that should he decide he would like to do additional testing to please contact the office and the test will be ordered. I do not believe that his shortness of breath, chest tightness and lightheadedness are associated with an infectious nature. Orders Orders: Plan Detail Follow Up 3 Months ([facility]) HPI feels like he has pneumonia: Chief Complaint: Chest tightness HPI Comments Details: This Patient presents to the office today for an acute visit regarding persistent chest tightness and shortness of breath with activity. He reports that recently his shortness of breath has increased and he is now experiencing it with rest and orthopnea. He is ambulatory, with the use of a cane and accompanied by his . He is currently on room air. He was treated 2 weeks ago for exacerbation of his COPD with an antibiotic. He completed the antibiotic. He was being treated by his primary care physician with prednisone for shoulder and knee pain. This was repeated since that office visit (prednisone). He reports that he never really felt improvement in his chest tightness. The symptoms are similar to those that he experienced when he previously had pneumonia. He also reports lightheadedness. He denies any cough but does have wheezing. He denies any lower extremity edema. He has reported difficulties with sleeping, this has been ongoing since he was placed on the prednisone. He denies any fever, chills or body aches. Has not tried any [id number] medications. He is not currently on any inhalers. He denies any palpitations or blaine chest pain. He describes it as a shortness of breath and chest tightness. Intake Vital Signs09/14/17 Height 5 ft 10 in 09/14/17 Weight: 173 lb Intake Visit Reasons: feels like he has pneumonia Chief Complaint: sleep apnea Accompanied by: Allergies lactose Allergy (Severe, Verified 09/14/17 10:51) unknown Penicillins Allergy (Severe, Verified 09/14/17 10:51) Anaphylaxis adhesive Allergy (Verified 09/14/17 10:51) Rash Sulfa (Sulfonamide Antibiotics) Allergy (Verified 09/14/17 10:51) Unknown diazepam [From Valium] Adverse Reaction (Verified 09/14/17 10:51) hyper opposite effect desired niacin [From Niaspan Extended-Release] Adverse Reaction (Verified 09/14/17 10:51) low bp simvastatin Adverse Reaction (Verified 09/14/17 10:51) Pain in joints Medications Acetaminophen/Diphenhydramine [Tylenol Pm Ex-Strength Caplet] 500 mg PO QHS 06/18/17 [History Confirmed 09/14/17] Amlodipine [Norvasc] 5 mg PO DAILY 06/18/17 [History Confirmed 09/14/17] Aspirin 81 mg PO DAILY 06/18/17 [History Confirmed 09/14/17] Atorvastatin Calcium [Lipitor] 40 mg PO QHS 06/18/17 [History Confirmed 09/14/17] Cholecalciferol (Vitamin D3) [Vitamin D3] 1 tab PO DAILY 06/18/17 [History Confirmed 09/14/17] Cyanocobalamin [Vitamin B12] 1 tab PO DAILY 06/18/17 [History Confirmed 09/14/17] Donepezil HCl 5 mg PO DAILY 06/18/17 [History Confirmed 09/14/17] Melatonin 10 mg PO QHS 06/18/17 [History Confirmed 09/14/17] Metoprolol Tartrate 25 mg PO BID 06/18/17 [History Confirmed 09/14/17] Omeprazole 20 mg PO DAILY 06/18/17 [History Confirmed 09/14/17] Pregabalin [Lyrica] 300 mg PO DAILY 06/18/17 [History Confirmed 09/14/17] Sertraline HCl [Zoloft] 50 mg PO BID 06/18/17 [History Confirmed 09/14/17] Vit A/Vit C/Vit E/Zinc/Copper [Preservision Areds Softgel] 1 ea PO BID 06/18/17 [History Confirmed 09/14/17] Warfarin [Coumadin ([facility])] 2 - 2.5 mg PO DAILY 06/18/17 [History Confirmed 09/14/17] Hydrocodone/Acetaminophen [[place] 5-325 Tablet] 1 ea PO Q4H PRN PRN 5 Days #14 tab 06/25/17 [Rx Confirmed 09/14/17] azithromycin 250 mg tablet 250 mg PO QDAY #6 tab 09/02/17 [Rx Confirmed 09/14/17] PFSH Medical History Tobacco abuse (Chronic) AAA (abdominal aortic aneurysm) (Chronic) PVD (peripheral vascular disease) (Chronic) Palpitations (Acute) Long-term use of high-risk medication (Chronic) Dizziness and giddiness (Acute) Syncope (Acute) Cough (Acute) Dyspnea (Acute) Bronchitis (Acute) Stage 2 moderate COPD by GOLD classification (Chronic) Acute respiratory failure with hypoxia (Acute) Malaise and fatigue (Acute) ARLENE (obstructive sleep apnea) (Chronic) Central sleep apnea (Chronic) Respiratory failure with hypoxia (Resolved) Unstable angina (Acute) Chest pain (Acute) Cardiomyopathy (Chronic) SSS (sick sinus syndrome) (Chronic) Autonomic dysfunction (Chronic) HLD (hyperlipidemia) (Chronic) PAD (peripheral artery disease) (Chronic) Acute kidney injury (Acute) Sepsis (Resolved) Community acquired pneumonia (Chronic) Coronary artery disease (Chronic) BPH (benign prostatic hypertrophy) with urinary obstruction (Chronic) Depressive disorder (Chronic) HTN (hypertension) (Chronic) Atrial fibrillation (Chronic) GERD (gastroesophageal reflux disease) (Chronic) Pacemaker (Chronic) Nephrolithiasis (Chronic) Personality disorder (Chronic) Surgical History S/P TURP (status post transurethral resection of prostate) (Resolved) pacemaker implantation (Resolved) History of inguinal hernia repair (Resolved) History of hemorrhoidectomy (Resolved) History of prostatectomy (Resolved) right ochiectomy (Resolved) History of appendectomy (Resolved) S/P PTCA (percutaneous transluminal coronary angioplasty) (Chronic) History of orchiectomy, unilateral (Chronic) Family History Father CAD (coronary artery disease) Mother Breast cancer Arthritis CAD (coronary artery disease) Hypertension Sister CVA (cerebral vascular accident) Diabetes Hypertension Son CAD (coronary artery disease) Hypertension Social History Smoking Status: Current every day smoker second hand exposure: Yes alcohol intake: never substance use type: does not use FEV1% FEV1%: 85 Review of Systems Const CONSTITUTIONAL: Positive fatigue; negative anorexia, body ache, chills, daytime sleepiness, fever(s), night sweats, oral thrush, stops breathing during sleep, weight loss, sleeping in chair, weight loss, weight gain, frequent colds, seasonal allergies, other, headache(s) or orthopnea [facility] Ear Nose Throat Mouth: Positive hearing normal; negative hard of hearing, hoarseness, dry mouth in morning, change in vision, itchy eyes, eye pain, swallowing Difficulty, ear pain, nose bleed, headache(s), mouth pain, nasal congestion, nasal discharge, post nasal drip, sinus pain, sinus pressure, sore throat or other Cardio Cardiovascular: Positive chest pain; negative chest pain at rest, chest pain with activity, irregular heart rhythm, edema, shortness of breath when lying down, palpitations, murmur or other Resp Respiratory: Positive as per HPI, shortness of breath shortness of breath: Positive with activity, worsening and lying down, chest congestion and chest tightness; negative pain with cough, wheezing, cough, pain on inspiration, inhalers, increase use of rescue inhalers, snoring, apnea or other Gastro Gastrointestional: Negative bloody stools, change in appetite, difficulty swallowing, reflux, hematemesis, melena stool, loose stool, constipation or other Genitourinary: Negative blood in urine, nocturia, pain with urination or other Musc Musculoskeletal: Negative body pain, back pain, neck pain or other Skin/Breast Skin/Breast: Negative dry skin, itching, rash, unusual bruising, breast lump or other Neuro Neurological: Negative restless legs, confusion, weakness or other Psych Psychocological: Positive abnormal sleep pattern; negative anxiety, thoughts of hurting self/others, hopelessness or other Lymph Lymphatic: Negative easy bleeding, easy bruising, swollen lymph nodes or other Exam Const Constitutional: Positive conversant, cooperative, in no acute respiratory distress, well developed, well nourished, good hygiene, thin and frail appearing Head Head: Positive normocephalic and atraumatic; negative cyanosis of lips/distal nose Eyes Eye: Positive clear conjunctiva and nystagmus; negative scleral abnormality Ears Ear: Positive hearing normal and external ears normal; negative hard of hearing Nose Nose: Positive external nose normal and no nasal discharge; negative epistaxis Mouth Mouth: Positive oral mucosae normal, no lesions, good dentition and posterior oropharynx is adequate; negative post nasal drip, malodorous breath or oral thrush present Mallampati Score: I: Mallampati Score Neck Neck: Positive normal visual inspection, full ROM and trachea midline; negative lymphadenopathy, JVD or tender Chest Wall Chest: Positive normal inspection of the chest and symmetric chest movement; negative increased A/P diameter Resp lung sounds: Positive clear to auscultation, good air exchange, normal expiratory time and normal respiratory effort; negative diminished, wheezes, rhonchi, rales, dullness to percussion or wheeze present on forced exhalation Cardio Cardiac: Positive regular rate, regular rhythm, S1 normal and S2 normal; negative murmur GI GI: Positive normal to inspection and normal bowel sounds; negative distended Genitourinary: Positive deferred Musc Musculoskeletal: Positive steady gait, ROM normal and using an assistive device for ambulation; negative kyphosis or scoliosis Skin Pulmonary Skin Exam: Positive intact; negative rash, lesion, ulcers, erythema, scaly or dermal atrophy Pulses Pulse: Yes pulses normal x4 extremities Extremities Extremities: Yes capillary refill normal, No clubbing, No cyanosis, No edema, No stasis dermatitis Neuro Neurologic: Yes conversant, Yes no focal neuro deficits, Yes cooperative, Yes normal cognition, Yes normal coordination, Yes normal concentration, Yes understands questions, No tremor Lymph Lymphatic: No lymphadenopathy, No tenderness, No cervical adenopathy, No axillary adenopathy Psych Appearance: Positive grossly normal, eye contact and well kempt Mental Status: Positive mental status grossly normal Mood: Positive congruent mood Affect: Positive normal affect Coding Level of Care Code Off vis,est,level 3 Diagnoses Shortness of breath R06.02 09/14/17 1601 <Electronically signed by Caitlin NG> Date Caitlin NG Cosigner Signature: Date (if applicable) CC: Apollo Arango MD CHEST PA AND LATERAL Observed: 09/14/2017 Status: F Source: [place] 10:04 AM [facility] [place] REPOSIT[facility] Imaging Services [address] [place] [address] Chest PA and Lateral MR#: [id number] Acct: [id number] Name: HUNTER HENDRICKSON Jr. Rep #: [id number] : 1940 M 76 From: Stef Carlton MD PCP: Apollo Arango MD Status: REG CLI Study: Chest PA and Lateral Date of Exam: 09/14/17 Exam# [id number] Ordering Dr: Caitlin Hamilton NP-Kristina STUDY: X-RAY CHEST REASON FOR EXAM: Male, 76 years old. Chest pain. Shortness of breath and dyspnea. TECHNIQUE: PA and lateral views of the chest. COMPARISON: Comparison is made with prior study dated September 02, 2017. FINDINGS: Hyperinflation. Scattered calcified granulomas. There is no demonstrated pleural abnormality. Normal size heart. A left-sided dual-chamber pacemaker is seen. Normal mediastinum and elis. Normal visualized pulmonary arteries. There is atherosclerotic calcification of the aortic arch with tortuosity. There are degenerative changes of the visualized thoracic spine. Normal visualized ribs, clavicles, and shoulders. There is no demonstrated abnormality of the visualized soft tissue structures of the upper abdomen. RAD/Chest PA and Lateral IMPRESSION: Hyperinflation. Electronically Signed: Stef Carlton MD at 11:14 EDT Tel [phone], Service support , CC: Caitlin Arango MD Mold Filler: Signed PULMONARY VISIT REPORT Observed: 09/03/2017 Status: F Source: [place] 10:44 AM [facility] [place] REPOSITORY Pulmonary Medicine of [address] [place] [address] OFFICE VISIT Date of Service: 09/02/17 MR#: [id number] Acct: [id number] Name: HUNTER HENDRICKSON JrMert Rep #: [id number] : 1940 Provider: Caitlin Hamilton Age/Sex: 76/M [place] [facility] [place] Status: Signed Assessment AND Plan 1. Shortness of breath R06.02 Status Acute Plan Deteriorated. Plan to evaluate with a chest x-ray today. We will call him tomorrow with update. 2. Tobacco abuse Z72.0 Status Chronic Plan Continue to encourage smoking cessation. 3. Bronchitis J40 Status Acute Plan Deteriorated. Treating with azithromycin. Holding off on prednisone at this time. The patient has been encouraged to contact the office after 48 hours on the antibiotic to give us an update on how he is feeling. If his symptoms worsen over the weekend he has been advised to present to the emergency department for evaluation. 4. Long-term use of high-risk medication Z79.899 Status Chronic Plan Complicates exam, plan, care and prognosis. On Coumadin, he has been advised to watch his INRs were closely while on Z-Frank. He conveys understanding. He has been encouraged to contact the office if his symptoms do not improve with the antibiotic for further evaluation. Otherwise, keep previously scheduled routine follow-up. Plan Detail Other Orders Orders: Other Medications New: HPI Shortness of breath: Chief Complaint: Chest tightness HPI Comments Details: This patient presents to the office today for an acute visit regarding chest tightness. He is ambulatory, currently on room air and he is accompanied today by his . He reports that over the past 7-10 days he has noticed an increase in chest tightness and cough frequency. The cough is dry, he denies any sputum production or hemoptysis. He is having shortness of breath, chest tightness but denies any wheezing. His reports that occasionally when he is coughing she can audibly hear wheezing. He denies any fevers, chills or body aches. He has had a daily headache, this is not new it is chronic for him. Does report that he recently finished prednisone as prescribed by his primary care physician for right shoulder and left knee pain. He reports that while on the prednisone he had no difficulties with his breathing and the pain was well under control. His concern today is that he is having a recurrence of pneumonia because this is the way that he felt when he presented with pneumonia. He is also having fatigue but admits that he has not been sleeping well lately. He continues to smoke three quarters of a pack of cigarettes per day. He is not currently on any inhalers. He does not have a rescue inhaler and does not feel that he needs one. See complete review of systems. He admits that he has not tried any [id number] medications to treat his symptoms. Intake Vital Signs09/02/17 Height 5 ft 10 in 09/02/17 Weight: 177 lb Intake Visit Reasons: Shortness of breath Chief Complaint: sleep apnea Accompanied by: Self Allergies lactose Allergy (Severe, Verified 09/02/17 14:17) unknown Penicillins Allergy (Severe, Verified 09/02/17 14:17) Anaphylaxis adhesive Allergy (Verified 09/02/17 14:17) Rash Sulfa (Sulfonamide Antibiotics) Allergy (Verified 09/02/17 14:17) Unknown diazepam [From Valium] Adverse Reaction (Verified 09/02/17 14:17) hyper opposite effect desired niacin [From Niaspan Extended-Release] Adverse Reaction (Verified 09/02/17 14:17) low bp simvastatin Adverse Reaction (Verified 09/02/17 14:17) Pain in joints Medications Acetaminophen/Diphenhydramine [Tylenol Pm Ex-Strength Caplet] 500 mg PO QHS 06/18/17 [History Confirmed 09/02/17] Amlodipine [Norvasc] 5 mg PO DAILY 06/18/17 [History Confirmed 09/02/17] Aspirin 81 mg PO DAILY 06/18/17 [History Confirmed 09/02/17] Atorvastatin Calcium [Lipitor] 40 mg PO QHS 06/18/17 [History Confirmed 09/02/17] Cholecalciferol (Vitamin D3) [Vitamin D3] 1 tab PO DAILY 06/18/17 [History Confirmed 09/02/17] Cyanocobalamin [Vitamin B12] 1 tab PO DAILY 06/18/17 [History Confirmed 09/02/17] Donepezil HCl 5 mg PO DAILY 06/18/17 [History Confirmed 09/02/17] Melatonin 10 mg PO QHS 06/18/17 [History Confirmed 09/02/17] Metoprolol Tartrate 25 mg PO BID 06/18/17 [History Confirmed 09/02/17] Omeprazole 20 mg PO DAILY 06/18/17 [History Confirmed 09/02/17] Pregabalin [Lyrica] 300 mg PO DAILY 06/18/17 [History Confirmed 09/02/17] Sertraline HCl [Zoloft] 50 mg PO BID 06/18/17 [History Confirmed 09/02/17] Vit A/Vit C/Vit E/Zinc/Copper [Preservision Areds Softgel] 1 ea PO BID 06/18/17 [History Confirmed 09/02/17] Warfarin [Coumadin (PBKC)] 2 - 2.5 mg PO DAILY 06/18/17 [History Confirmed 09/02/17] Hydrocodone/Acetaminophen [[place] 5-325 Tablet] 1 ea PO Q4H PRN PRN 5 Days #14 tab 06/25/17 [Rx Confirmed 09/02/17] azithromycin 250 mg tablet 250 mg PO QDAY #6 tab 09/02/17 [Rx Confirmed 09/02/17] PFSH Medical History Tobacco abuse (Chronic) AAA (abdominal aortic aneurysm) (Chronic) PVD (peripheral vascular disease) (Chronic) Palpitations (Acute) Long-term use of high-risk medication (Chronic) Dizziness and giddiness (Acute) Syncope (Acute) Cough (Acute) Dyspnea (Acute) Bronchitis (Acute) Stage 2 moderate COPD by GOLD classification (Chronic) Acute respiratory failure with hypoxia (Acute) Malaise and fatigue (Acute) ARLENE (obstructive sleep apnea) (Chronic) Central sleep apnea (Chronic) Respiratory failure with hypoxia (Resolved) Unstable angina (Acute) Chest pain (Acute) Cardiomyopathy (Chronic) SSS (sick sinus syndrome) (Chronic) Autonomic dysfunction (Chronic) HLD (hyperlipidemia) (Chronic) PAD (peripheral artery disease) (Chronic) Acute kidney injury (Acute) Sepsis (Resolved) Community acquired pneumonia (Chronic) Coronary artery disease (Chronic) BPH (benign prostatic hypertrophy) with urinary obstruction (Chronic) Depressive disorder (Chronic) HTN (hypertension) (Chronic) Atrial fibrillation (Chronic) GERD (gastroesophageal reflux disease) (Chronic) Pacemaker (Chronic) Nephrolithiasis (Chronic) Personality disorder (Chronic) Surgical History S/P TURP (status post transurethral resection of prostate) (Resolved) pacemaker implantation (Resolved) History of inguinal hernia repair (Resolved) History of hemorrhoidectomy (Resolved) History of prostatectomy (Resolved) right ochiectomy (Resolved) History of appendectomy (Resolved) S/P PTCA (percutaneous transluminal coronary angioplasty) (Chronic) History of orchiectomy, unilateral (Chronic) Family History Father CAD (coronary artery disease) Mother Breast cancer Arthritis CAD (coronary artery disease) Hypertension Sister CVA (cerebral vascular accident) Diabetes Hypertension Son CAD (coronary artery disease) Hypertension Social History Smoking Status: Current every day smoker second hand exposure: Yes alcohol intake: never substance use type: does not use Review of Systems Const CONSTITUTIONAL: Positive fatigue (not sleeping well) and headache(s); negative anorexia, body ache, chills, daytime sleepiness, fever(s), night sweats, oral thrush, stops breathing during sleep, weight loss, sleeping in chair, weight loss, weight gain, frequent colds, seasonal allergies, other or orthopnea EETM Ear Nose Throat Mouth: Positive hearing normal and headache(s); negative hard of hearing, hoarseness, dry mouth in morning, change in vision, itchy eyes, eye pain, swallowing Difficulty, ear pain, nose bleed, mouth pain, nasal congestion, nasal discharge, post nasal drip, sinus pain, sinus pressure, sore throat or other Cardio Cardiovascular: Negative chest pain, chest pain at rest, chest pain with activity, irregular heart rhythm, edema, shortness of breath when lying down, palpitations, murmur or other Resp Respiratory: Positive as per HPI, shortness of breath shortness of breath: Positive with activity and worsening, chest congestion and chest tightness; negative pain with cough, wheezing, cough, pain on inspiration, inhalers, increase use of rescue inhalers, snoring, apnea or other Gastro Gastrointestional: Negative bloody stools, change in appetite, difficulty swallowing, reflux, hematemesis, melena stool, loose stool, constipation or other Genitourinary: Negative blood in urine, nocturia, pain with urination or other Musc Musculoskeletal: Negative body pain, back pain, neck pain or other Skin/Breast Skin/Breast: Negative dry skin, itching, rash, unusual bruising, breast lump or other Neuro Neurological: Negative restless legs, confusion, weakness or other Psych Psychocological: Positive abnormal sleep pattern; negative anxiety, thoughts of hurting self/others, hopelessness or other Lymph Lymphatic: Negative easy bleeding, easy bruising, swollen lymph nodes or other Exam Const Constitutional: Positive conversant, cooperative, in no acute respiratory distress, healthy appearing, well developed, well nourished, good hygiene and thin Head Head: Positive normocephalic and atraumatic; negative cyanosis of lips/distal nose Eyes Eye: Positive clear conjunctiva and nystagmus; negative scleral abnormality Ears Ear: Positive hearing normal and external ears normal; negative hard of hearing Nose Nose: Positive external nose normal and no nasal discharge; negative epistaxis Mouth Mouth: Positive oral mucosae normal, no lesions, dentures and posterior oropharynx is adequate; negative post nasal drip, malodorous breath or oral thrush present Mallampati Score: II: Mallampati Score Neck Neck: Positive normal visual inspection, full ROM and trachea midline; negative lymphadenopathy, JVD or tender Chest Wall Chest: Positive normal inspection of the chest and symmetric chest movement; negative increased A/P diameter Resp lung sounds: Positive rhonchi (Cleared with cough, right posterior lower lobe), normal expiratory time and normal respiratory effort; negative wheeze present on forced exhalation, wheezes, rales or dullness to percussion Cardio Cardiac: Positive regular rate, regular rhythm, S1 normal and S2 normal; negative murmur GI GI: Positive normal to inspection and normal bowel sounds; negative distended Genitourinary: Positive deferred Musc Musculoskeletal: Positive steady gait and ROM normal; negative kyphosis or scoliosis Skin Pulmonary Skin Exam: Positive intact; negative rash, lesion, ulcers, erythema, scaly or dermal atrophy Pulses Pulse: Yes pulses normal x4 extremities Extremities Extremities: Yes capillary refill normal, No clubbing, No cyanosis, No edema, No stasis dermatitis Neuro Neurologic: Yes conversant, Yes no focal neuro deficits, Yes cooperative, Yes normal cognition, Yes normal coordination, Yes normal concentration, Yes understands questions, No tremor Lymph Lymphatic: No lymphadenopathy, No tenderness, No cervical adenopathy, No axillary adenopathy Psych Appearance: Positive grossly normal, eye contact and well kempt Mental Status: Positive mental status grossly normal Mood: Positive paranoid and congruent mood Affect: Positive normal affect Coding Level of Care Code Off vis,est,level 4 Diagnoses Shortness of breath R06.02 Tobacco abuse Z72.0 Bronchitis J40 Long-term use of high-risk medication Z79.899 09/03/17 1044 <Electronically signed by Caitlin NG> Date Caitlin NG Cosigner Signature: Date (if applicable) CC: Apollo Arango MD CHEST PA AND LATERAL Observed: 09/02/2017 Status: F Source: [place] 3:27 PM [facility] [place] REPOSIT[facility] Imaging Services [address] [place] [address] Chest PA and Lateral MR#: [id number] Acct: [id number] Name: HUNTER HENDRICKSON JrMert Rep #: [id number] : 1940 M 76 From: Jose Miguel Aranda MD PCP: Apollo Arango MD Status: REG CLI Study: Chest PA and Lateral Date of Exam: 09/02/17 Exam# [id number] Ordering Dr: Caitlin Hamilton STUDY: X-RAY CHEST REASON FOR EXAM: Male, 76 years old. Chest pain TECHNIQUE: Frontal and lateral views of the chest. COMPARISON: 03/15/2017 FINDINGS: Dual-chamber pacemaker on the left. The lungs are clear and expanded. There is no demonstrated pleural abnormality. Normal size heart. Normal mediastinum and elis. Normal visualized pulmonary arteries. Normal visualized aortic arch and descending thoracic aorta. Normal visualized thoracic spine. Normal visualized ribs, clavicles, and shoulders. Abdominal clips. RAD/Chest PA and Lateral IMPRESSION: No acute pulmonary findings. Electronically Signed: Jose Miguel Aranda MD at 6:09 EDT Tel , Service support , CC: Caitlin Hamilton; Apollo Arango MD Mold Filler: Signed XR SPINE LUMBAR W/ Observed: 07/27/2017 Status: F Source: [facility] [place] 12:17 PM [facility] REPOSITORY Exam Date/Time: 07/27/2017 12:25 EDT Reason for Exam: lumbar spine spondy Report XR SPINE LUMBAR W/ OBLIQUES CLINICAL STATEMENT: Low back pain. COMPARISON: Lumbar spine series October 12, 2016. TECHNIQUE: AP, oblique and lateral views with a lateral cone- down view of the lumbosacral junction. FINDINGS: There are 5 lumbar type segments. There is stable mild levoscoliosis of the lower lumbar spine. The lumbar vertebrae are maintained in height. There is again severe disc space narrowing L4-L5 with endplate sclerosis and vacuum disc phenomena. Moderate degenerative disc disease is seen at L2-L3. Remaining disc spaces are mildly narrowed. There is multilevel facet osteoarthritis most pronounced at L4-L5. No obvious osseous destructive lesion. No spondylolisthesis. There are heavy atherosclerotic calcifications of the abdominal aorta with aneurysmal dilatation of the infrarenal portion of the aorta evaluated previously with CT and not significantly changed. There is an 8 mm calcification overlying the left renal shadow. IMPRESSION: 1. No acute osseous abnormality or spondylolisthesis. 2. Multilevel degenerative disc disease and facet osteoarthritis most pronounced and severe at L4-L5. 3. Known distal aortic aneurysm. 4. Left renal stone. FINAL REPORT Dictated: 07/27/2017 5:01 pm Bk Armstrong DO Signed (Electronic Signature): 07/27/2017 5:01 pm Signed by: Bk Armstrong DO Technologist: HLL XR PELVIS 1 OR 2 Observed: 07/27/2017 Status: F Source: [facility] 12:17 PM [facility] REPOSITORY Exam Date/Time: 07/27/2017 12:25 EDT Reason for Exam: sacroiliitis Report SINGLE FRONTAL VIEW OF THE PELVIS, 07/27/2017 12:17 PM: COMPARISON: CT scan of the abdomen and pelvis, 05/14/2017. CLINICAL HISTORY: Sacroiliitis. FINDINGS: No acute fracture, subluxation, or dislocation identified. Degenerative changes of the lower lumbosacral spine, predominantly at the L4-L5 level are redemonstrated. Very mild osteoarthritic changes of the sacroiliac and hip joints bilaterally. Some vascular calcification overlying the femoral vasculature bilaterally. IMPRESSION: 1. No acute osseous abnormality identified as described above. 2. Degenerative changes of the lower lumbosacral spine predominantly at the L4-L5 level are redemonstrated. 3. Mild osteoarthritic changes of the sacroiliac and hip joints bilaterally. FINAL REPORT Dictated: 07/27/2017 7:16 pm Ally Xie MD Signed (Electronic Signature): 07/27/2017 7:16 pm Signed by: Ally Xie MD Technologist: BENOIT XR SHOULDER COMPLETE Observed: 07/27/2017 Status: F Source: [facility] 12:17 PM [facility] REPOSITORY Exam Date/Time: 07/27/2017 12:25 EDT Reason for Exam: left shoulder OA Report FOUR VIEWS OF LEFT SHOULDER, 07/27/2017 AT 12:17 PM: COMPARISON: None. CLINICAL HISTORY: Left shoulder osteoarthritis. FINDINGS: No acute fracture, subluxation, or dislocation identified. If there is persistent concern for a subtle or nondisplaced fracture, repeat views could be obtained in 7 to 10 days. A curvilinear calcification just above the superolateral aspect of the humeral head measuring 1.4 x 0.3 cm, likely the sequela of calcific tendinitis. Mild osteoarthritic changes of the glenohumeral and acromioclavicular joints. A couple pacing leads seen in the left subclavian region. IMPRESSION: 1. No acute osseous abnormality identified as described above. 2. A curvilinear calcification just superolateral to the humeral head likely sequela of calcific tendinitis. 3. Mild osteoarthritis as described above. FINAL REPORT Dictated: 07/27/2017 7:16 pm Ally Xie MD Signed (Electronic Signature): 07/27/2017 7:16 pm Signed by: Ally Xie MD Technologist: BENOIT ABDOMEN SINGLE VIEW Observed: 07/22/2017 Status: F Source: [place] 10:50 AM [facility] [place] REPOSITORY [facility] Imaging Services [address] [place] [id number] Abdomen Single View MR#: [id number] Acct: [id number] Name: HUNTER HENDRICKSON JrMert Rep #: [id number] : 1940 M 76 From: Ras Cheung DO PCP: Apollo Arango MD Status: REG CLI Study: Abdomen Single View Date of Exam: 07/22/17 Exam# [id number] Ordering Dr: Harrison Rendon MD STUDY: X-RAY - ABDOMEN/PELVIS REASON FOR EXAM: Male, 76 years old. Abdominal pain TECHNIQUE: 2 views COMPARISON: None. FINDINGS: There is an unremarkable bowel gas pattern. There is no demonstrated free abdominal air. Surgical clips in the right upper quadrant. Normal soft tissue structures. Degenerative vertebral changes and slight scoliosis. RAD/Abdomen Single View IMPRESSION: No sign of bowel obstruction. Electronically Signed: Ras Cheung DO at 23:53 EDT Tel [phone], Service support , CC: Harrison Rendon MD; Apollo Arango MD Mold Filler: Signed PULMONARY VISIT REPORT Observed: 07/20/2017 Status: F Source: [place] 2:13 PM [facility] [place] REPOSITORY Pulmonary Medicine [address] [place] [address] OFFICE VISIT Date of Service: 07/20/17 MR#: [id number] Acct: [id number] Name: HUNTER HENDRICKSON JrMert Rep #: [id number] : 1940 Provider: Caitlin Hamilton Age/Sex: 76/M [place] [facility] [place] Status: Signed Assessment AND Plan 1. ARLENE (obstructive sleep apnea) G47.33 Status Chronic Plan He is using and benefiting from current pressure support therapy. No indication for titration study at this time. Plan to follow-up with Dr. Parikh in 1 year. He has been encouraged to contact the office if he develops any new or worsening symptoms in the meantime. 2. Stage 2 moderate COPD by GOLD classification J44.9 Status Chronic Plan Stable. Not currently on any inhalers. No repeat testing at this time. Follow-up with Dr. Parikh in 1 year. He does not appear to be in exacerbation today, does not require antibiotics or prednisone. 3. Tobacco abuse Z72.0 Status Chronic Plan Continue to encourage smoking cessation. Patient conveys no desire to quit smoking at this point. Follow-up with Dr. Parikh in 1 year. Plan Detail Follow Up 1 Year ([facility]) HPI 3 M FU: Chief Complaint: sleep apnea HPI Comments Details: Patient presents the office today for routine follow- up on his moderate COPD and obstructive sleep apnea. He is ambulatory, currently in room air and accompanied by his . He has not been seen in the ED urgent care for any respiratory illnesses since last office visit. He has not required antibiotics or prednisone for any breathing problems. He is compliant with his BiPAP, per his own report. Compliance report available for review. He denies any persistent daytime hypersomnia, he reports feeling rested in the morning. He denies any difficulties with air leaks or dry mouth in the morning. He denies any episodes of nocturia or frequent headaches. He does admit that he has not been wearing his BiPAP for the past week, because he injured his left eardrum and has reported that using his BiPap after the injury has caused increased bleeding from that ear drum. He has been following with ENT for thie and has a follow up in a few days. He is not currently on any inhalers. Is not using over the counter medications at this point. He does admit to smoking half a pack of cigarettes daily. He continues to have a cough that is sometimes productive of pink tinged sputum, this has been ongoing for several years and has not changed for him. He denies any blaine hemoptysis. He denies any wheezing, chest tightness, chest pain or palpitations. He denies any sinus pressure or drainage. He denies any fever, chills or body aches. Her his own words I do not know why I am here today. Intake Vital Signs07/20/17 Height 5 ft 10 in 07/20/17 Weight: 170 lb Intake Visit Reasons: 3 M FU [facility]: [employer] Accompanied by: Allergies lactose Allergy (Severe, Verified 07/20/17 10:06) unknown Penicillins Allergy (Severe, Verified 07/20/17 10:06) Anaphylaxis adhesive Allergy (Verified 07/20/17 10:06) Rash Sulfa (Sulfonamide Antibiotics) Allergy (Verified 07/20/17 10:06) Unknown diazepam [From Valium] Adverse Reaction (Verified 07/20/17 10:06) hyper opposite effect desired niacin [From Niaspan Extended-Release] Adverse Reaction (Verified 07/20/17 10:06) low bp simvastatin Adverse Reaction (Verified 07/20/17 10:06) Pain in joints Medications Acetaminophen/Diphenhydramine [Tylenol Pm Ex-Strength Caplet] 500 mg PO QHS 06/18/17 [History Confirmed 07/20/17] Amlodipine [Norvasc] 5 mg PO DAILY 06/18/17 [History Confirmed 07/20/17] Aspirin 81 mg PO DAILY 06/18/17 [History Confirmed 07/20/17] Atorvastatin Calcium [Lipitor] 40 mg PO QHS 06/18/17 [History Confirmed 07/20/17] Cholecalciferol (Vitamin D3) [Vitamin D3] 1 tab PO DAILY 06/18/17 [History Confirmed 07/20/17] Cyanocobalamin [Vitamin B12] 1 tab PO DAILY 06/18/17 [History Confirmed 07/20/17] Donepezil HCl 5 mg PO DAILY 06/18/17 [History Confirmed 07/20/17] Melatonin 10 mg PO QHS 06/18/17 [History Confirmed 07/20/17] Metoprolol Tartrate 25 mg PO BID 06/18/17 [History Confirmed 07/20/17] Omeprazole 20 mg PO DAILY 06/18/17 [History Confirmed 07/20/17] Pregabalin [Lyrica] 300 mg PO DAILY 06/18/17 [History Confirmed 07/20/17] Sertraline HCl [Zoloft] 50 mg PO BID 06/18/17 [History Confirmed 07/20/17] Vit A/Vit C/Vit E/Zinc/Copper [Preservision Areds Softgel] 1 ea PO BID 06/18/17 [History Confirmed 07/20/17] Warfarin [Coumadin (PBKC)] 2 - 2.5 mg PO DAILY 06/18/17 [History Confirmed 07/20/17] Hydrocodone/Acetaminophen [Denver 5-325 Tablet] 1 ea PO Q4H PRN PRN 5 Days #14 tab 06/25/17 [Rx Confirmed 07/20/17] PFSH Medical History Tobacco abuse (Chronic) AAA (abdominal aortic aneurysm) (Chronic) PVD (peripheral vascular disease) (Chronic) Palpitations (Acute) Long-term use of high-risk medication (Chronic) Dizziness and giddiness (Acute) Syncope (Acute) Cough (Acute) Dyspnea (Acute) Bronchitis (Acute) Stage 2 moderate COPD by GOLD classification (Chronic) Acute respiratory failure with hypoxia (Acute) Malaise and fatigue (Acute) ARLENE (obstructive sleep apnea) (Chronic) Central sleep apnea (Chronic) Respiratory failure with hypoxia (Resolved) Unstable angina (Acute) Chest pain (Acute) Cardiomyopathy (Chronic) SSS (sick sinus syndrome) (Chronic) Autonomic dysfunction (Chronic) HLD (hyperlipidemia) (Chronic) PAD (peripheral artery disease) (Chronic) Acute kidney injury (Acute) Sepsis (Resolved) Community acquired pneumonia (Chronic) Coronary artery disease (Chronic) BPH (benign prostatic hypertrophy) with urinary obstruction (Chronic) Depressive disorder (Chronic) HTN (hypertension) (Chronic) Atrial fibrillation (Chronic) GERD (gastroesophageal reflux disease) (Chronic) Pacemaker (Chronic) Nephrolithiasis (Chronic) Personality disorder (Chronic) Surgical History S/P TURP (status post transurethral resection of prostate) (Resolved) pacemaker implantation (Resolved) History of inguinal hernia repair (Resolved) History of hemorrhoidectomy (Resolved) History of prostatectomy (Resolved) right ochiectomy (Resolved) History of appendectomy (Resolved) S/P PTCA (percutaneous transluminal coronary angioplasty) (Chronic) History of orchiectomy, unilateral (Chronic) Family History Father CAD (coronary artery disease) Mother Breast cancer Arthritis CAD (coronary artery disease) Hypertension Sister CVA (cerebral vascular accident) Diabetes Hypertension Son CAD (coronary artery disease) Hypertension Social History Smoking Status: Current every day smoker second hand exposure: Yes alcohol intake: never substance use type: does not use Review of Systems Const CONSTITUTIONAL: Positive fatigue; negative anorexia, body ache, chills, daytime sleepiness, fever(s), night sweats, oral thrush, stops breathing during sleep, weight loss, sleeping in chair, weight loss, weight gain, frequent colds, seasonal allergies, other, headache(s) or orthopnea EETM Ear Nose Throat Mouth: Positive hearing normal and ear pain (Broken Lt eardrum); negative hard of hearing, hoarseness, dry mouth in morning, change in vision, itchy eyes, eye pain, swallowing Difficulty, nose bleed, headache(s), mouth pain, nasal congestion, nasal discharge, post nasal drip, sinus pain, sinus pressure, sore throat or other Cardio Cardiovascular: Negative chest pain, chest pain at rest, chest pain with activity, irregular heart rhythm, edema, shortness of breath when lying down, palpitations, murmur or other Resp Respiratory: Positive as per HPI, shortness of breath shortness of breath: Positive with activity and cough cough: Positive productive color: Positive bloody (sm amount pink tinged sputum) and clear; negative pain with cough, wheezing, chest congestion, chest tightness, pain on inspiration, inhalers, increase use of rescue inhalers, snoring, apnea or other Gastro Gastrointestional: Negative bloody stools, change in appetite, difficulty swallowing, reflux, hematemesis, melena stool, loose stool, constipation or other Genitourinary: Negative blood in urine, nocturia, pain with urination or other Musc Musculoskeletal: Negative body pain, back pain, neck pain or other Skin/Breast Skin/Breast: Negative dry skin, itching, rash, unusual bruising, breast lump or other Neuro Neurological: Negative restless legs, confusion, weakness or other Psych Psychocological: Negative abnormal sleep pattern, anxiety, thoughts of hurting self/others, hopelessness or other Lymph Lymphatic: Negative easy bleeding, easy bruising, swollen lymph nodes or other Exam Const Constitutional: Positive conversant, cooperative, in no acute respiratory distress, healthy appearing, well developed, well nourished and good hygiene Head Head: Positive normocephalic and atraumatic; negative cyanosis of lips/distal nose Eyes Eye: Positive clear conjunctiva and nystagmus; negative scleral abnormality Ears Ear: Positive hearing normal, external ears normal and unable to visualize TM (cotton ball to left ear secondary to punctured ear drum ); negative hard of hearing Nose Nose: Positive external nose normal and no nasal discharge; negative epistaxis Mouth Mouth: Positive oral mucosae normal, no lesions, dentures and posterior oropharynx is adequate; negative post nasal drip, malodorous breath or oral thrush present Mallampati Score: I: Mallampati Score Neck Neck: Positive normal visual inspection, full ROM and trachea midline; negative lymphadenopathy, JVD or tender Chest Wall Chest: Positive normal inspection of the chest and symmetric chest movement; negative increased A/P diameter Resp lung sounds: Positive clear to auscultation, good air exchange, normal expiratory time and normal respiratory effort; negative diminished, wheezes, rhonchi, rales, dullness to percussion or wheeze present on forced exhalation Cardio Cardiac: Positive regular rate, regular rhythm, S1 normal and S2 normal; negative murmur GI GI: Positive normal to inspection and normal bowel sounds; negative distended Genitourinary: Positive deferred Musc Musculoskeletal: Positive steady gait and ROM normal; negative kyphosis or scoliosis Skin Pulmonary Skin Exam: Positive intact; negative rash, lesion, ulcers, erythema, scaly or dermal atrophy Pulses Pulse: Yes pulses normal x4 extremities Extremities Extremities: Yes capillary refill normal, No clubbing, No cyanosis, No edema, No stasis dermatitis Neuro Neurologic: Yes conversant, Yes no focal neuro deficits, Yes cooperative, Yes normal cognition, Yes normal coordination, Yes normal concentration, Yes understands questions Lymph Lymphatic: No lymphadenopathy, No tenderness, No cervical adenopathy, No axillary adenopathy Psych Appearance: Positive grossly normal, eye contact and well kempt Mental Status: Positive mental status grossly normal Mood: Positive congruent mood Affect: Positive normal affect Coding Level of Care Code Off vis,est,level 3 Diagnoses ARLENE (obstructive sleep apnea) G47.33 Stage 2 moderate COPD by GOLD classification J44.9 Tobacco abuse Z72.0 07/20/17 1413 <Electronically signed by Caitlin NG> Date Caitlin NG Cosigner Signature: Date (if applicable) CC: Apollo Arango MD OPERATIVE REPORT Observed: 06/25/2017 Status: F Source: SAW 4:01 PM [facility] [place] REPOSITORY [facility] Medical Records Department [address] [address] Operative Report 06/25/17 1558 MR#: [id number] Acct: [id number] Name: HUNTER HENDRICKSON Jr. Rep #: [id number] : 1940 76 From: Harrison Rendon MD PCP: Apollo Arango MD Status: REG [facility] Location: [place] [address] Report of Operation Date of Procedure: 06/25/17 Pre-Operative Diagnosis: Gross hematuria and left renal calculi multiple Post-Operative Diagnosis: Same Surgery/Procedure Performed:: Flexible cystoscopy and left extracorporeal shockwave lithotripsy Description of Surgical Findings:: 76-year-old male was taken back to the operating room after smooth induction of general anesthesia he was placed supine on the table. Penis and testicles were prepped and draped in usual sterile fashion went in the bladder with a ureteroscope. The entire length of the urethra is normal. The prostate was normal. 18 Romanian flexible, the prostate had a prior resection wide open. Inside the bladder no tumors or stones. No blood was seen. The bladder was then drained we then positioned the patient for treatment of the kidney stones in the left side the stones are blasted with shockwave lithotripsy of multiple stones each was biopsied one of the time at the end of the treatment stone broke up really well no stent was placed patient anesthetic was reversed to give a total of 3000 shockwaves the left kidney and targeted multiple stones. The patient will follow up in the office with a KUB in several weeks. Type of Anesthesia:: General - Admit VTE Documentation VTE Present on Admission: No VTE Mechan Device Prophylaxis: SCD's VTE Pharm Prophylaxis ordered?: No Reason prophylaxis not ordered:: Treatment Not Indicated 06/25/17 1601 <Electronically signed by Harrison Rendon MD> Date Harrison Rendon MD CC: Harrison Rendon MD; Apollo Arango MD Signed DISCHARGE INSTRUCTION Observed: 06/25/2017 Status: F Source: SAW 3:57 PM [facility] [place] REPOSITORY [facility] Medical Records Department [address] [place] [address] Instructions for Home/Discharge Instructions 06/25/17 1555 MR#: [id number] Acct: [id number] Name: HUNTER HENDRICKSON Jr. Rep #: [id number] : 1940 76 From: Harrison Rendon MD PCP: Apollo Arango MD Status: REG SDC Discharge Diet: Light diet - advance as tolerated Discharge Activity: Return to Normal Activity Call your doctor if your incision/area has: Continuous Slow Oozing, Sudden Increased Bleeding, Increased Pain/ Swelling, Increased Redness, Foul Smelling Discharge, Swelling at the incision site Allergies/Adverse Reactions: Allergies lactose Allergy (Severe, Verified 06/23/17 10:05) unknown Penicillins Allergy (Severe, Verified 06/23/17 10:05) Anaphylaxis adhesive Allergy (Verified 06/23/17 10:05) Rash Sulfa (Sulfonamide Antibiotics) Allergy (Verified 06/23/17 10:05) Unknown diazepam [From Valium] Adverse Reaction (Verified 06/23/17 10:05) hyper opposite effect desired HYPER OPPOSITE EFFECT DESIRED niacin [From Niaspan Extended-Release] Adverse Reaction (Verified 06/23/17 10:05) low bp LOW BP simvastatin Adverse Reaction (Verified 06/23/17 10:05) Pain in joints Medications to take at Discharge Acetaminophen/Diphenhydramine [Tylenol Pm Ex-Strength Caplet] 500 mg PO QHS 06/18/17 Amlodipine [Norvasc] 5 mg PO DAILY 06/18/17 Aspirin 81 mg PO DAILY 06/18/17 Atorvastatin Calcium [Lipitor] 40 mg PO QHS 06/18/17 Cholecalciferol (Vitamin D3) [Vitamin D3] 1 tab PO DAILY 06/18/17 Cyanocobalamin [Vitamin B12] 1 tab PO DAILY 06/18/17 Donepezil HCl 5 mg PO DAILY 06/18/17 Melatonin 10 mg PO QHS 06/18/17 Metoprolol Tartrate 25 mg PO BID 06/18/17 Omeprazole 20 mg PO DAILY 06/18/17 Pregabalin [Lyrica] 300 mg PO DAILY 06/18/17 Sertraline HCl [Zoloft] 50 mg PO BID 06/18/17 Vit A/Vit C/Vit E/Zinc/Copper [Preservision Areds Softgel] 1 each PO BID 06/18/17 Warfarin [Coumadin (PBKC)] 2 - 2.5 mg PO DAILY 06/18/17 Azithromycin [Zithromax] 250 mg PO DAILY 06/23/17 Hydrocodone/Acetaminophen [Denver 5-325 Tablet] 1 ea PO Q4H PRN PRN 5 Days #14 tab 06/25/17 The following prescriptions were given: Hydrocodone/Acetaminophen [Denver 5-325 Tablet] 1 ea PO Q4H PRN PRN 5 Days #14 tab PRN Reason: Pain Primary Care Physician: Apollo Arango MD [Primary Care Provider] - Please Follow Up With: Harrison Rendon MD When: in 2 weeks, please call to make an appointment. 06/25/17 1557 <Electronically signed by Harrison Rendon MD> Date Harrison Rendon MD CC: Apollo Arango MD PROTIME W/INR Collected: 06/25/2017 Status: F Source: SAW [place] 1:07 PM [facility] REPOSITORY TYPE CODE TESTS RESULT OUT OF RANGE REFERENCE UNITS LAB L9200.1001 11.9-14.4 SEC Normal PROTIME ISTAT 13.2 Result Comment: Reference Range 11.9 - 14.4 LAB L9200.2000 Normal INR ISTAT 1.10 Result Comment: Critical Value > 3.5 Performed By: #### L9200.0000 #### [facility] Point of Care [address] [place] [address] ABDOMEN SINGLE VIEW Observed: 06/25/2017 Status: F Source: [place] 12:00 AM [facility] [place] REPOSITORY [facility] Imaging Services [address] [place] [address] Abdomen Single View MR#: [id number] Acct: [id number] Name: HUNTER HENDRICKSON Jr. Rep #: [id number] : 1940 M 76 From: Stef Carlton MD PCP: Apollo Arango MD Status: [facility] Study: Abdomen Single View Date of Exam: 06/25/17 Exam# [id number] Ordering Dr: Harrison Rendon MD STUDY: X-RAY - ABDOMEN/PELVIS REASON FOR EXAM: Male, 76 years old. Left-sided kidney stones. TECHNIQUE: Two AP supine views of the abdomen and pelvis. COMPARISON: Comparison is made with prior study dated June 08, 2017. FINDINGS: There is a moderate amount of colonic fecal material. There is evidence of a 5.8 mm calculus in the lower pole calyx of the left kidney. Atherosclerotic calcification of the abdominal aorta. There are diffuse degenerative changes of the visualized lumbar spine. RAD/Abdomen Single View IMPRESSION: 5.8 mm calculus in the lower pole calyx of the left kidney. Electronically Signed: Stef Carlton MD at 13:07 EST Tel [phone], Service support , CC: Harrison Rendon MD; Apollo Arango MD Mold Filler: Signed EMERGENCY DEPARTMENT Observed: 06/23/2017 Status: F Source: SAW SUMMARY 12:54 AM [facility] [place] REPOSITORY [facility] Medical Records Department [address] [place] [address] Emergency Department Summary 06/22/17 1827 MR#: [id number] Acct: [id number] Name: HUNTER HENDRICKSON Jr. Rep #: [id number] : 1940 76 From: Bk Cheek MD PCP: Apollo Arango MD Status: DEP ER - ER Visit Summary Date of Service: 06/22/17 Chief Complaint: Spit out some blood-tinged saliva History of Present Illness: The patient is a 76 M recent nosebleeds for the last 3 weeks. Was on Coumadin and aspirin secondary to cardiac stents and A. fib. He had nasal packing in. From the emergency department on Wednesday. He was seen by Dr. Karishma Aguila today in the ENT office who then removed his packing. Reportedly caught him in a prescription but there was no prescription when he got to the pharmacy. He denies any nose bleeding today. Physical Examination: Signs are stable afebrile. H EENT exam nasal congestion bilaterally. Clear drainage. No blood in either naris. No active bleeding. No clots. Posterior pharynx there is very minimal blood-tinged drainage. But no active bleeding or clots. No trouble breathing or swallowing. Neck nontender. Lungs clear to auscultation. Heart regular rhythm. Abdomen soft nontender. Extremities unremarkable. Neurologic exam awake and alert. Test Results: Reviewed the patient's CBC and PT/INR from the other day. Emergency Department Course and Treatment: Spoke with Dr. Dalal and the patient be started on Zithromax Z-FRANK. Currently he is not actively bleeding. I do not think he needs to be repacked. Patient is comfortable with that plan. Treatment Plan: [] Disposition: dc Impression: Nosebleed resolved This note was generated with Accion dictation software. It may contain incorrect words, spelling, and punctuation that were not noted in review of the chart prior to signing ED Disposition - Plan for ED Patient: Chief Complaint: Nosebleed Referrals: Apollo Arango MD [Primary Care Provider] - What to do if you have Problems For any increased pain, shortness of breath, bleeding, nausea or vomiting, chest pain, or any unexpected problems, contact your Primary Care Provider. Call [facility] ([phone]) or report to the closest Emergency Room. Call 911 if necessary. 06/23/17 0054 <Electronically signed by Bk Cheek MD> Date Bk Cheek MD Cosigner Signature (If Indicated): Date CC: Apollo Arango MD DISCHARGE INSTRUCTION Observed: 06/23/2017 Status: F Source: SAW 12:54 AM [facility] [place] REPOSITORY [facility] Medical Records Department [address] [place] [address] Discharge Instruction 06/22/17 1829 MR#: [id number] Acct: [id number] Name: HUNTER HENDRICKSON Jr. Rep #: [id number] : 1940 76 From: Bk Cheek MD PCP: Apollo Arango MD Status: DEP ER ED Disposition - Plan for ED Patient: Disposition: Home or Assisted Living Chief Complaint: Nosebleed Instructions: Nosebleed Prescriptions: Azithromycin [Zithromax Z-Frank] 250 mg PO UD #1 box Referrals: Apollo Arango MD [Primary Care Provider] - As Needed Additional Instructions: Return if nosebleed restarts. Or feeling worse. What to do if you have Problems For any increased pain, shortness of breath, bleeding, nausea or vomiting, chest pain, or any unexpected problems, contact your Primary Care Provider. Call [facility] ([phone]) or report to the closest Emergency Room. Call 911 if necessary. 06/23/17 0054 <Electronically signed by Bk Cheek MD> Date Bk Cheek MD Cosigner Signature (If Indicated): Date CC: Apollo Arango MD EMERGENCY DEPARTMENT Observed: 06/19/2017 Status: F Source: SAW SUMMARY 5:54 PM [facility] [place] REPOSITORY [facility] Medical Records Department [address] [place] [address] Emergency Department Summary 06/19/17 0944 MR#: [id number] Acct: [id number] Name: HUNTER HENDRICKSON Jr. Rep #: [id number] : 1940 76 From: Zyanab Beth MD PCP: Apollo Arango MD Status: DEP ER - ER Visit Summary Date of Service: 06/19/17 Chief Complaint: Nosebleed History of Present Illness: The patient is a 76 M on Coumadin for atrial fibrillation who presents with epistaxis for 2 hours. Patient has been having intermittent epistaxis, mainly from the right nostril for the last 2 weeks. He was seen yesterday for the same complaint after 1 hour of bleeding. He required no packing or intervention yesterday, as the bleeding had stopped spontaneously. Patient had checked his INR at home yesterday and it was 2.7. His bleeding began this morning 2 hours prior to presentation. He denies any coughing, sneezing, picking his nose, blowing his nose, or other inciting factors. Upon questioning later, patient does think he may have blown his nose in retrospect. He does complain of some associated nausea and feels like he has been swallowing clots. Denies dizziness or lightheadedness. No shortness of breath or chest pain. Physical Examination: Vital signs: afebrile, hemodynamically stable, no hypoxia on room air General: well nourished, well developed, in no distress Skin: warm, dry, no rash, no pallor HEENT: normocephalic and atraumatic; PERRL, EOMI, moist mucous membranes the posterior oropharynx shows blood coming from the nasopharynx, patient has bilateral packing in his nostrils with small amount of blood soaked into them Cardiovascular: regular rate and rhythm without murmurs, no peripheral edema, 2+ pulses all distal extremities Test Results: [] Emergency Department Course and Treatment: Patient initially had denied any inciting factors for his bleeding, but then does think he blew his nose, and states he frequently blows his nose. INR was checked and was 2.3. Packing was removed and showed no active bleeding. No specific site of bleeding or clot was noted. Patient had no active bleeding noted in the posterior oropharynx once he swallowed the current blood that was visible. Bilateral nostrils were packed with cotton balls soaked in Afrin and lidocaine. Nose clamp was placed for 20 minutes. Reevaluation, no further bleeding was noted, and patient was given water to drink and to rinse his posterior oropharynx with. He had no further blood noted. However after drinking water, patient choked on the last drink which caused mild oozing of blood. He was reevaluated and there was mild oozing of blood from the superior region of the right nostril, although no specific area was identified as the source. There was no posterior hemorrhage noted. Because of the continued bleeding anytime he has any coughing, sneezing, choking or blowing his nose and that is on Coumadin, anterior packing was placed. Patient is to keep it in place until Wednesday at which time he is to follow-up with his doctor to have it removed. Patient stated tomorrow he will stop taking his Coumadin because of a procedure this being done this week. Patient will return if any return of bleeding that he cannot control with direct pressure after 30 minutes, at which time we discussed he may require posterior packing and admission. Patient agreed with this plan and was discharged with the packing in place. No antibiotics were written. Treatment Plan: [] Disposition: [] Impression: Right epistaxis inpatient on Coumadin This note was generated with Accion dictation software. It may contain incorrect words, spelling, and punctuation that were not noted in review of the chart prior to signing ED Disposition - Plan for ED Patient: Disposition: Home or Assisted Living Chief Complaint: Nosebleed Instructions: Nosebleed, ED Nasal Packing Anterior Removable Referrals: Apollo Arango MD [Primary Care Provider] - 2 Days Additional Instructions: We attempted to stop your nosebleed using medications and temporary pressure/packing. Because the bleeding continued, nasal packing has been placed. Please leave this in place until Wednesday and follow-up with your doctor for reexamination and to have it removed. You were not prescribed antibiotics. If you are unable to see your doctor on Wednesday, you may follow-up with your ear nose throat doctor or return to the emergency department for removal of the packing. If you have any further thickened bleeding that is not controlled with pressure on your nose, these return to the emergency department immediately for another evaluation and treatment. You may have small amount of dripping of bloody fluid, which is normal since the packing is soaked in water. If you have any further concerns or worsening of your condition, please return immediately for another evaluation. What to do if you have Problems For any increased pain, shortness of breath, bleeding, nausea or vomiting, chest pain, or any unexpected problems, contact your Primary Care Provider. Call [facility] ([phone]) or report to the closest Emergency Room. Call 911 if necessary. 06/19/17 1754 <Electronically signed by Zaynab Beth MD> Date Zaynab Beth MD Cosigner Signature (If Indicated): Date CC: Apollo Arango MD DISCHARGE INSTRUCTION Observed: 06/19/2017 Status: F Source: [place] 5:54 PM [facility] [place] REPOSITORY [facility] Medical Records Department [address] [facility] [place] [address] Discharge Instruction 06/19/17 1124 MR#: [id number] Acct: [id number] Name: HUNTER HENDRICKSON Rep #: [id number] : 1940 76 From: Zaynab Beth MD PCP: Apollo Arango MD Status: DEP ER ED Disposition - Plan for ED Patient: Disposition: Home or Assisted Living Chief Complaint: Nosebleed Instructions: Nosebleed, ED Nasal Packing Anterior Removable Referrals: Apollo Arango MD [Primary Care Provider] - 2 Days Additional Instructions: We attempted to stop your nosebleed using medications and temporary pressure/packing. Because the bleeding continued, nasal packing has been placed. Please leave this in place until Wednesday and follow-up with your doctor for reexamination and to have it removed. You were not prescribed antibiotics. If you are unable to see your doctor on Wednesday, you may follow-up with your ear nose throat doctor or return to the emergency department for removal of the packing. If you have any further thickened bleeding that is not controlled with pressure on your nose, these return to the emergency department immediately for another evaluation and treatment. You may have small amount of dripping of bloody fluid, which is normal since the packing is soaked in water. If you have any further concerns or worsening of your condition, please return immediately for another evaluation. What to do if you have Problems For any increased pain, shortness of breath, bleeding, nausea or vomiting, chest pain, or any unexpected problems, contact your Primary Care Provider. Call [facility] ([phone]) or report to the closest Emergency Room. Call 911 if necessary. 06/19/17 1754 <Electronically signed by Zaynab Beth MD> Date Zaynab Beth MD Cosigner Signature (If Indicated): Date CC: Apollo Arango MD CBC-COMPLETE BLOOD CNT Collected: 06/19/2017 Status: F Source: [place] NO DIFF 9:55 AM [facility] REPOSITORY TYPE CODE TESTS RESULT OUT OF RANGE REFERENCE UNITS LAB L100.1000 4.4-11.0 K/mm3 Normal WBC 10.9 LAB L100.1200 4.6-6.2 M/mm3 Normal RBC 4.65 LAB L100.1300 13.0-16.5 g/dl Normal HGB 13.9 LAB L100.1400 40-54 % Normal HCT 43.3 LAB L100.1500 80-94 fL Normal MCV 93.1 LAB L100.1600 27.0-32.0 pg Normal MCH 29.9 LAB L100.1700 32-36 g/gl Normal MCHC 32.1 LAB L100.1810 11.6-14.6 % High RDW CV 15.5 LAB L100.1820 35.1-43.9 fl High RDW SD 51.7 LAB L100.1900 150-450 K/mm3 Low PLT 138 LAB L100.2000 6.2-12.0 fl Normal MPV 11.5 Performed By: #### L100.0500 #### [facility] [address] [place], [address] PROTHROMBIN TIME W/INR Collected: 06/19/2017 Status: F Source: SA[place] 9:55 AM [facility] REPOSITORY TYPE CODE TESTS RESULT OUT OF RANGE REFERENCE UNITS LAB L300.4150 11.7-14.9 SECONDS High PROTIME 25.7 LAB L300.4200 Normal INR 2.3 Performed By: #### L300.3900 #### [facility] [address] [place], [address] EMERGENCY DEPARTMENT Observed: 06/18/2017 Status: F Source: [place] SUMMARY 4:18 PM [facility] REPOSITORY [facility] Medical Records Department [address] [place] [address] Emergency Department Summary 06/18/17 1416 MR#: [id number] Acct: [id number] Name: HUNTER HENDRICKSON Jr. Rep #: [id number] : 1940 76 From: Jair Talbert DO PCP: Apollo Arango MD Status: DEP ER - ER Visit Summary Date of Service: 06/18/17 Chief Complaint: [] Nosebleed History of Present Illness: The patient is a 76 M [] complaining of epistaxis beginning 1 hour ago. He reports 2 weeks of intermittent nosebleeds for unknown etiology. Does report he is on Coumadin for atrial fibrillation. No other complaints at this time. He reports losing minimal blood prior to arrival. Physical Examination: [] Afebrile, vital signs stable. Well- appearing elderly male in no acute distress. Cardiovascular exam reveals regular rate. Lungs were auscultation. Abdomen is soft and nontender. HEENT exam reveals slight dry blood in the right nares. Left nares unremarkable. Remainder of exam is unremarkable. Test Results: [] None. Emergency Department Course and Treatment: [] Patient had Afrin nasal packing applied immediately upon arrival. This was removed 15 minutes later. Patient was able to blow his nose without any further bleeding. He was observed for an additional hour with no further bleeding. At this time he will be discharged to follow-up with his primary care physician. Treatment Plan: [] Follow-up with PCP. Disposition: [] Discharge, stable. Impression: [] Epistaxis This note was generated with getbetter!ation software. It may contain incorrect words, spelling, and punctuation that were not noted in review of the chart prior to signing ED Disposition - Plan for ED Patient: Chief Complaint: Nosebleed Referrals: Apollo Arango MD [Primary Care Provider] - What to do if you have Problems For any increased pain, shortness of breath, bleeding, nausea or vomiting, chest pain, or any unexpected problems, contact your Primary Care Provider. Call [facility] ([phone]) or report to the closest Emergency Room. Call 911 if necessary. 06/18/17 1618 <Electronically signed by Jair Talbert DO> Date Jair Talbert DO Cosigner Signature (If Indicated): Date CC: Apollo Arango MD DISCHARGE INSTRUCTION Observed: 06/18/2017 Status: F Source: [place] 2:19 PM [facility] REPOSITORY [facility] Medical Records Department [address] [facility] [place] [address] Discharge Instruction 06/18/17 1418 MR#: [id number] Acct: [id number] Name: MADHAVIHUNTERLYNN Ortiz Jr. Rep #: [id number] : 1940 76 From: Jair Talbert DO PCP: Apollo Arango MD Status: REG ER ED Disposition - Plan for ED Patient: Disposition: Home or Assisted Living Chief Complaint: Nosebleed Instructions: Nosebleed Referrals: Apollo Arango MD [Primary Care Provider] - What to do if you have Problems For any increased pain, shortness of breath, bleeding, nausea or vomiting, chest pain, or any unexpected problems, contact your Primary Care Provider. Call [facility] ([phone]) or report to the closest Emergency Room. Call 911 if necessary. 06/18/17 1419 <Electronically signed by Jair Talbert DO> Date Jair Flores Signature (If Indicated): Date CC: Apollo Arango MD ABDOMEN SINGLE VIEW Observed: 06/08/2017 Status: F Source: [place]W 3:31 PM [facility] REPOSITORY [facility] Imaging Services [address] [place] [address] Abdomen Single View MR#: [id number] Acct: [id number] Name: HUNTER HENDRICKSON Jr. Rep #: [id number] : 1940 M 76 From: Atif Brice MD PCP: Apollo Arango MD Status: REG CLI Study: Abdomen Single View Date of Exam: 06/08/17 Exam# [id number] Ordering Dr: Harrison Rendon MD STUDY: X-RAY - ABDOMEN/PELVIS REASON FOR EXAM: Male, 76 years old. Kidney stone. TECHNIQUE: Single AP view of the abdomen / pelvis. COMPARISON: None. FINDINGS: Cannot exclude small renal stones because of overlying fecal material, but no definite kidney stones are seen. Degenerative changes throughout the bones. Normal bowel gas pattern. Tortuous aorta with calcified plaque. RAD/Abdomen Single View IMPRESSION: No definite renal stones but small stones could be missed because of overlying fecal material and gas. Electronically Signed: Atif Brice MD at 14:24 EST , Service support , CC: Harrison Rendon MD; Apollo Arango MD Mold Filler: Signed OFFICE VISIT REPORT Observed: 05/27/2017 Status: F Source: SAW 11:18 AM [facility] [address] [place] [address] OFFICE VISIT Date of Service: 05/26/17 MR#: [id number] Acct: [id number] Patient: HUNTER HENDRICKSON Jr. Rep #: [id number] : 1940 Provider: Destinee Jaime Age/Sex: 76/M [place] [facility] Status: Signed Comments Summary Comments: Dual Chamber Pacemaker Evaluation: Interrogation shows 1 MS episode, <0.1% total time and 3 VHR episodes since 11/24/16. Last VHR episode occurred on 04/15/17 Stored e-gram/markers shows VHR 180 bpm for approx 4 secs. Left pectoral pocket/incision w/o s/s of infection or erosion. Pt offers no cardiac complaints. Presenting rhythm shows AAI pacing @ 83 bpm. DENTAL INSTRUCTOR=0.4%. Lead impedances, sensing and pace/sense thresholds remain stable. No parameter changes made. Counters cleared. Next f/u appt scheduled for in 6 mos per pt request. Device Device Date Interviewed: 05/26/17 Follow-up Location: in office Interview Reason: routine follow up Dental Scheduler: [employer] Name: Sensia Model: SDR01 Serial #: [id number] Implant Date: 02/02/08 Year(s): 9 Implant Physician: Dr. Ehsan Howe Patient Characteristics Atrial Indication: sick sinus syndrome Patient Substrate: Syncope Ejection fraction %: 50 to 54 (03/2016) By: Echo Underlying rhythm: Sinus bradycardia Pacemaker Dependent: No Device Characteristics Device: Dual Chamber Type: Pacemaker Remote Follow-Up: No Device Physical Exam Yes Incision well healed Leads Lead #1 Dental Scheduler Lead 1: Guidant Model Lead 1: 4469/45 Serial# Lead 1: [id number] Date Implanted Lead 1: 07/27/01 Position Lead 1: RA Lead #2 Dental Scheduler Lead 2: Guidant Model Lead 2: 4470/52 Serial# Lead 2: [id number] Date Implanted Lead 2: 07/27/01 Position Lead 2: RV Diagnostics Pacing % RV Pacin.4 Mode Switching Total # Episodes: 1 % Mode switched: 0.1 Arrhythmias Non-Sust Episodes: 3 Measurements Battery Voltage (V): 2.68 Predicted Remaining Longevity (months or years): 10 mos RA Measurements Impedance (Ohms): 658 Threshold Voltage: 0.75 @ PW(ms): 0.4 RV Measurements Signal Amplitude (mV): 2.8 Impedance (Ohms): 479 Threshold Voltage: 0.5 @ PW(ms): 0.4 Rafiq Settings Bradycardia Mode and Timing Settings Pacemaker Mode: DDDR Base Rate: 70 bpm Max Track Rate: 120 bpm Max Sensor Rate: 120 bpm Maximum AV Delay: 250 msec Billing Codes PM Device Codes: PM Dev Prog Eval, Dual Assessment AND Plan Problems 1. SSS (sick sinus syndrome) I49.5 2. Ischemic cardiomyopathy I25.5 3. Syncope R55 05/26/17 1302 <Electronically signed by Destinee Jaime > Date Destinee Jaime 05/27/17 1118<Electronically signed by Apollo Lindsey MD> Cosigner Signature: Date (if applicable) Apollo Lindsey MD CC: CT ABDOMEN/PELVIS W/O Observed: 05/14/2017 Status: F Source: EPISCOPALIAN CONTRAST 8:49 AM [facility] REPOSITORY Exam Date/Time: 05/14/2017 09:03 EST Reason for Exam: RENAL FAILURE HEMATURIA;Hematuria Report EXAM: CT Abdomen/Pelvis w/o Contrast CLINICAL STATEMENT: Hematuria. Patient states intermittent hematuria for one year. COMPARISON: CT abdomen and pelvis September 09, 2016. TECHNIQUE: CT examination of the abdomen and pelvis without IV contrast. Coronal and sagittal reformations were performed. Dose reduction techniques were achieved by using automated exposure control and/or adjustment of mA and/or kV according to patient size and/or use of iterative reconstruction technique. FINDINGS: KUB FINDINGS: As before, there is severe cortical thinning/atrophy of the left kidney. The left kidney contains 3 stones. 2 stones present in the posterior interpolar region measure 5 x 4 mm and 7 x 4 mm. Additional 3 mm stone in the upper pole. The right kidney shows no stones. Both kidneys again show fairly symmetric stranding in the perinephric spaces bilaterally that may related to medical renal disease. Again present are multiple low-attenuation lesions in both kidneys that are not fully characterized on the current examination but consistent with cysts described previously and overall not substantially changed. There is no hydronephrosis. Ureters are symmetric and nondilated. There is no ureteral or bladder stone. Urinary bladder is nearly empty at the time of imaging. Wall of the bladder is diffusely thickened. The appearance is similar to the prior examination. CT ABDOMEN/PELVIS: Partially imaged are pacemaker or ICD leads within the right atrium and right ventricle. Again seen is a crescent-shaped collection of fat in the left ventricular myocardium that is likely related to previous myocardial infarction. No calcifications suspicious for aneurysm. The unenhanced liver again shows several scattered low-attenuation lesions, incompletely characterized but may represent small cysts or hemangiomas, unchanged. Gallbladder has been surgically removed with stable dilatation of the common bile duct. No calcified common bile duct stones. The spleen and adrenal glands are unremarkable. Mild global atrophy of the pancreas is again noted without an obvious mass or signs of acute pancreatitis. Small bowel loops show signs of obstruction. There are again heavy atherosclerotic calcifications of the abdominal aorta with a stable fusiform infrarenal abdominal aortic aneurysm measuring 3.5 x 3.6 cm. No bulky mesenteric or retroperitoneal adenopathy. No ascites. There is scattered Exam Date/Time: 05/14/2017 09:03 EST Report diverticulosis of the colon without evidence of acute diverticulitis. Multilevel spinal degenerative changes are again noted most pronounced at L2-L3 and L4-L5. No obvious acute osseous abnormality. IMPRESSION: 1. Nonobstructing left renal stones measuring up to 7 mm. No additional KUB stones or signs of an obstructive uropathy. 2. Urinary bladder is nearly empty with a diffusely thickened wall, unchanged from the prior study. 3. Atrophic left kidney. Stable presumably bilateral renal cysts. 4. No signs of an acute process in the abdomen or pelvis. 5. Stable fusiform infrarenal abdominal aortic aneurysm measuring up to 3.6 cm. 6. Stable fat deposition in the left ventricular myocardium consistent with previous myocardial infarct. 7. Stable biliary duct dilatation status post cholecystectomy. 8. Colonic diverticulosis. FINAL REPORT Dictated: 05/14/2017 12:12 pm Bk Armstrong DO Signed (Electronic Signature): 05/14/2017 12:12 pm Signed by: Bk Armstrong DO Technologist: CRISTELA, GASTRIC BIOPSY Observed: 05/11/2017 Status: F Source: SAW 10:00 AM [facility] REPOSITORY Patient: HUNTER HENDRICKSON . : 1940 (76/M) Acct Num: [id number] Phys: Harrison Beatty Unit Num: [id number] Loc: LABSPEC Specimen: [id number] Received: 05/11/171516 Spec Type: Gastric Bx TISSUES TISSUES: Gastric mucous membrane COMMENT The results of immunohistochemistry for Helicobacter pylori will be reported separately ([id number]). GROSS DESCRIPTION Received in fixative is one container labeled with the patient's name and designated gastric antrum. The specimen consists of multiple irregular fragments of light riley soft tissue that in aggregate measure 0.8 x 0.3 x 0.1 cm. The specimen is totally submitted in one cassette. / SJ:jaskaran 05/12/17 TC:3 CPT: 69710 HEADER OPERATION: EGD with biopsy PRE-OP DIAGNOSIS: Epigastric pain TISSUE SUBMITTED: Gastric antrum biopsy, rule out gastritis MICROSCOPIC DESCRIPTION Slides are reviewed. Sections show small collections and groups of plasma cells in the mucosa. Active inflammation is not present. These findings are consistent with mild chronic gastritis. MICROSCOPIC DIAGNOSIS Gastric antrum, biopsy: Minimal chronic inflammation. AM:jaskaran 05/13/17 Signed Wagner Alvaro 05/13/17 <signature on file> Performed By: #### PGASB #### [facility] [place], [address] IMMUNOHISTOCHEMISTRY Observed: 05/11/2017 Status: F Source: [place] 12:00 AM [facility] REPOSITORY Patient: HUNTER HENDRICKSON Jr. : 1940 (76/M) Acct Num: [id number] Phys: Harrison Beatty Unit Num: [id number] Loc: LABSPEC Specimen: [id number] Received: 05/13/171123 Spec Type: IMMUNO TISSUES TISSUES: Stomach, NOS SPECIMEN INFORMATION: Tissue Source: Gastric antrum biopsy Clinical Info: Epigastric pain Specimen Number: [id number] CPT code: 32871 METHODOLOGY: Deparaffinized sections of prefer/formalin-fixed tissue or PAP/DQ stained slides are incubated with monoclonal/polyclonal antibodies/oligonucleotide probes. Localization is made via biotin free immunoperoxidase method. Appropriate controls are performed and reacted as expected. Results on target cell population are indicated in the following table: RESULTS: ANTIBODY / CLONE RESULT H Pylori (polyclonal) negative These tests were developed and their performance characteristics determined by [facility]. They may not have been cleared or approved by the U.S. Food and Drug Administration. The FDA has determined that such clearance or approval is not necessary. INTERPRETATION: Gastric antrum, biopsy: Negative for Helicobacter pylori organisms. AM:jaskaran 05/13/17 PHYS[facility]IAN [facility] [address] [address] Signed Wagner Alvaro 05/13/17 <signature on file> Performed By: #### PIMM #### [facility] [address] [place] [address]. [place], [place], [address] PULMONARY VISIT REPORT Observed: 04/22/2017 Status: F Source: [place] 12:23 PM [facility] REPOSITORY [facility] [address] [place] [address] OFFICE VISIT Date of Service: 04/22/17 MR#: [id number] Acct: [id number] Name: MADHAVIHUNTER Angel Lloyd Rep #: [id number] : 1940 Provider: Howie Parikh MD Age/Sex: 76/M [place] [facility] Status: Signed Assessment AND Plan 1. Aspiration pneumonia of right lower lobe, unspecified aspiration pneumonia type J69.0; J69.0; J69.0 Plan Patient is recently had an upper GI showing distal contractures, but has not been seen by GI for evaluation at this time. This may lead to regurgitation and choking. Patient currently with significant wheezing noted on the right side. Will treat with antibiotics. Patient did have aspiration with thin liquids. Patient states he is not willing to thicken anything at this time. Did discuss with patient about chin tuck and avoidance of straws to decrease aspiration risk. Patient is refusing any prednisone at this time secondary to previous side effects. Patient understands that this increases his risk of decompensation. Signs and symptoms of worsening were reviewed with the patient. Patient voiced understanding. Treat with Levaquin. Await GI workup. Medications New: 2. Stage 2 moderate COPD by GOLD classification J44.9 Plan Patient with moderate COPD by previous PFT criteria. However, patient has had multiple exacerbations over the last 6 months. In the future, patient would benefit from a repeat of pulmonary function testing. Would not recommend imaging unless patient has had significant change in pulmonary function testing. Patient would likely also benefit from initiation of inhaled combined long-acting beta agonist and anticholinergic therapy, but did not want to start this during an acute visit. Consider future pulmonary function test and combined LABA/LAAC Medications New: albuterol sulfate HFA 90 mcg/actuation (Vento2 puffs Inhalation Q4H PRN shortness of devendra yordan HFA) th or wheezing 3. ARLENE (obstructive sleep apnea) G47.33 Plan Patient with recent titration. Patient is responding well to increased pressures recommended by polysomnogram. No complaints at this time. Continue with BiPAP recommended settings. Plan Detail Follow Up 3 Months ([facility]) HPI 6 M FU: Chief Complaint: Cough and shortness of breath Details: Patient is a 76-year-old male, well-known to this practice, who presents for acute visit secondary to cough and shortness of breath. Patient states I feel like I have pneumonia again. Patient has been undergoing a workup for aspiration prior to this presentation. Patient has had an upper GI showing contractures of the lower esophagus and a swallow study showing aspiration with thin liquids. Patient was reportedly encouraged to use a modified diet, but had refused. Patient reports that yesterday at lunch he was drinking through a straw and developed acute onset of cough and shortness of breath. Patient states that over the last 24 hours he has noted increased dyspnea on exertion. Patient does have a cough that is nonproductive at this time. Patient denies any diaphoresis, hemoptysis, sinus congestion, nausea or vomiting. No emesis at any time has been reported. Patient denies any loss of consciousness. Patient does report that this illness has decreased his amount of baseline smoking is currently only smoking one half pack per day. Patient reports that previously he was treated with prednisone therapy. Patient states he was unable to tolerate this secondary to anxiety, insomnia and feeling weird. Patient is refusing to use that at this time. Patient has not been using albuterol to attempt to deal with shortness of breath. Patient has been compliant with BiPAP therapy over the course of the illness. Patient states that this is functioning well and keeping his symptoms under control. Patient feels rested upon waking. Patient denies any complications such as pain at the interface site, epistaxis or dry mouth. Testing personally reviewed with the patient Recent swallow study and upper GI were reviewed with the patient. Patient reports he is to see GI in the near future, but previous pain at EGD was discontinued secondary to a fever of 102 F Intake Vital Signs04/22/17 Height 5 ft 10 in 04/22/17 Weight: 76.204 kg 04/22/17 Body Mass Index (BMI) 24.0 Intake Visit Reasons: 6 M FU Accompanied by: Allergies lactose Allergy (Severe, Verified 04/22/17 10:23) unknown Penicillins Allergy (Severe, Verified 03/15/17 11:41) Anaphylaxis adhesive Allergy (Verified 03/15/17 11:41) Rash Sulfa (Sulfonamide Antibiotics) Allergy (Verified 03/15/17 11:41) Unknown diazepam [From Valium] Adverse Reaction (Verified 03/15/17 11:41) hyper opposite effect desired niacin [From Niaspan Extended-Release] Adverse Reaction (Verified 03/15/17 11:41) low bp simvastatin Adverse Reaction (Verified 03/15/17 11:41) Pain in joints Medications Lactase [Lactaid] 3,000 unit PO PRN PRN 03/23/13 [History Confirmed 03/15/17] Metoprolol Tartrate [Lopressor (beta scot)] 25 mg PO BID 03/23/13 [History Confirmed 03/15/17] Pregabalin [Lyrica] 300 mg PO QHS 03/23/13 [History Confirmed 03/15/17] Melatonin/Pyridoxine [Melatonin 5 mg Tablet] 10 mg PO QHS PRN PRN 09/19/13 [History Confirmed 03/15/17] Aspirin E.C. [Ecotrin] 81 mg PO DAILY@0800 06/26/15 [History Confirmed 03/15/17] Nitroglycerin [Nitrostat] 0.4 mg SUBLINGUAL Q5M PRN 06/26/15 [History Confirmed 03/15/17] Vit A/Vit C/Vit E/Zinc/Copper [Preservision Areds Softgel] 1 ea PO BID 06/26/15 [History Confirmed 03/15/17] Sertraline HCl [Zoloft] 50 mg PO BID 03/27/16 [History Confirmed 03/15/17] Warfarin [Coumadin] 2 mg PO QODAY 03/27/16 [History Confirmed 03/15/17] Warfarin [Coumadin] 2.5 mg PO QODAY 03/27/16 [History Confirmed 03/15/17] Amlodipine [Norvasc] 5 mg PO DAILY 03/15/17 [History Confirmed 03/15/17] Cholecalciferol (Vitamin D3) [Vitamin D3] 2,000 unit PO DAILY 03/15/17 [History Confirmed 03/15/17] Cyanocobalamin (Vitamin B-12) [Vitamin B-12] 1,000 mcg PO DAILY 03/15/17 [History Confirmed 03/15/17] Donepezil HCl 5 mg PO QHS 03/15/17 [History Confirmed 03/15/17] Omeprazole [Prilosec] 20 mg PO DAILY 03/15/17 [History Confirmed 03/15/17] Atorvastatin Calcium [Lipitor] 40 mg PO QHS #30 tab 03/16/17 [Rx] albuterol sulfate HFA 90 mcg/actuation aerosol inhaler 2 puff INHALATION Q4H PRN #8 g 04/22/17 [Rx Confirmed 04/22/17] cholecalciferol (vitamin D3) 2,000 unit capsule 2,000 unit PO ONCE 04/22/17 [History Confirmed 04/22/17] diphenhydramine 25 mg-acetaminophen 500 mg tablet 1 tab PO QHS PRN 04/22/17 [History Confirmed 04/22/17] guaifenesin 400 mg tablet 400 mg PO BID tab 04/22/17 [History Confirmed 04/22/17] levofloxacin 500 mg tablet 500 mg PO Q24H 7 Days #7 tab 04/22/17 [Rx Confirmed 04/22/17] pregabalin 300 mg capsule 300 mg PO ONCE cap 04/22/17 [History Confirmed 04/22/17] vit C 250 mg-E 200 unit-zinc 40 mg-copper 1 mw-ezkglp-pkoctf capsule 1 tab PO ONCE cap 04/22/17 [History Confirmed 04/22/17] Review of Systems Const CONSTITUTIONAL: Positive fatigue (increase ), other (cannot lie flat) and headache(s) (increased ); negative anorexia, body ache, chills, daytime sleepiness, fever(s), night sweats, oral thrush, stops breathing during sleep, weight loss, sleeping in chair, weight loss, weight gain, frequent colds, seasonal allergies or orthopnea EETM Ear Nose Throat Mouth: Positive headache(s) (increased ), swallowing Difficulty, nasal discharge, sinus pressure and hard of hearing; negative hoarseness, dry mouth in morning, change in vision, itchy eyes, eye pain, ear pain, mouth pain, nasal congestion, sinus pain, sore throat, other, hearing normal, nose bleed or post nasal drip Cardio Cardiovascular: Positive chest pain; negative chest pain at rest, chest pain with activity, irregular heart rhythm, edema, shortness of breath when lying down, palpitations, other or murmur Resp Respiratory: Positive as per HPI, shortness of breath shortness of breath: Positive with activity (increased ), cough cough: Positive productive color: Positive blood streaked and non-productive and chest tightness; negative pain with cough, wheezing, chest congestion, pain on inspiration, inhalers, increase use of rescue inhalers, snoring, apnea or other Gastro Gastrointestional: Negative bloody stools, change in appetite, difficulty swallowing, reflux, hematemesis, melena stool, loose stool, constipation or other Genitourinary: Positive nocturia; negative blood in urine, pain with urination or other Musc Musculoskeletal: Positive body pain, back pain and neck pain; negative other Skin/Breast Skin/Breast: Negative dry skin, itching, unusual bruising, breast lump, other or rash Neuro Neurological: Positive confusion and weakness; negative restless legs or other Psych Psychocological: Negative abnormal sleep pattern, anxiety, thoughts of hurting self/others, hopelessness or other Lymph Lymphatic: Positive easy bleeding and easy bruising; negative other or swollen lymph nodes Exam Const Constitutional: Positive conversant, cooperative, well developed, well nourished, dyspenic and ill appearing; negative obese Head Head: Positive normocephalic and atraumatic; negative cyanosis of lips/distal nose, frontal sinus tenderness or maxillary sinus tenderness Eyes Eye: Positive scleral abnormality (Slight scleral injection. No conjunctival hemorrhage is noted); negative nystagmus Ears Ear: Positive hard of hearing and external ears normal; negative hearing normal Nose Nose: Positive external nose normal, septum normal and no nasal discharge; negative epistaxis or nasal polyp Mouth Mouth: Positive oral mucosae normal, no lesions and dentures; negative post nasal drip or oral thrush present Mallampati Score: II: Mallampati Score Neck Neck: Positive normal visual inspection, full ROM and trachea midline; negative lymphadenopathy, JVD or tender Chest Wall Chest: Positive normal inspection of the chest, symmetric chest movement and increased A/P diameter; negative crepitus or tenderness Resp lung sounds: Positive rhonchi rhonchi: Positive right, wheezes (Right greater than left), diminished and prolonged expiratory time; negative use of accessory muscles Cardio Cardiac: Positive regular rate, regular rhythm, S1 normal and S2 normal; negative murmur, rub or gallop GI GI: Positive normal to inspection and normal bowel sounds; negative obese, distended, ascites or epigastric tenderness Genitourinary: Positive deferred Musc Musculoskeletal: Positive steady gait Skin Pulmonary Skin Exam: Positive intact; negative rash, lesion, ulcers, erythema or scaly Pulses Pulse: Positive radial pulses present and pedal pulses present Extremities Extremities: Positive capillary refill normal and clubbing; negative cyanosis or edema Neuro Neurologic: Positive conversant, no focal neuro deficits, cooperative, normal cognition, normal coordination and normal concentration Lymph Lymphatic: Positive cervical adenopathy; negative lymphadenopathy, tenderness or axillary adenopathy Psych Appearance: Positive grossly normal Mental Status: Positive mental status grossly normal Mood: Positive congruent mood Affect: Positive normal affect [facility] Medical History Aspiration pneumonia (Acute) Tobacco abuse (Chronic) AAA (abdominal aortic aneurysm) (Chronic) PVD (peripheral vascular disease) (Chronic) Palpitations (Acute) Long-term use of high-risk medication (Chronic) Dizziness and giddiness (Acute) Syncope (Acute) Cough (Acute) Dyspnea (Acute) Bronchitis (Acute) Stage 2 moderate COPD by GOLD classification (Chronic) Acute respiratory failure with hypoxia (Acute) Malaise and fatigue (Acute) ARLENE (obstructive sleep apnea) (Chronic) Central sleep apnea (Chronic) Respiratory failure with hypoxia (Resolved) Unstable angina (Acute) Chest pain (Acute) Cardiomyopathy (Chronic) SSS (sick sinus syndrome) (Chronic) Autonomic dysfunction (Chronic) HLD (hyperlipidemia) (Chronic) PAD (peripheral artery disease) (Chronic) Acute kidney injury (Acute) Sepsis (Resolved) Community acquired pneumonia (Chronic) Coronary artery disease (Chronic) BPH (benign prostatic hypertrophy) with urinary obstruction (Chronic) Depressive disorder (Chronic) HTN (hypertension) (Chronic) Atrial fibrillation (Chronic) GERD (gastroesophageal reflux disease) (Chronic) Pacemaker (Chronic) Nephrolithiasis (Chronic) Personality disorder (Chronic) Surgical History S/P TURP (status post transurethral resection of prostate) (Resolved) pacemaker implantation (Resolved) History of inguinal hernia repair (Resolved) History of hemorrhoidectomy (Resolved) History of prostatectomy (Resolved) right ochiectomy (Resolved) History of appendectomy (Resolved) S/P PTCA (percutaneous transluminal coronary angioplasty) (Chronic) History of orchiectomy, unilateral (Chronic) Family History Father CAD (coronary artery disease) Mother Breast cancer Arthritis CAD (coronary artery disease) Hypertension Sister CVA (cerebral vascular accident) Diabetes Hypertension Son CAD (coronary artery disease) Hypertension Social History Smoking Status: Current every day smoker second hand exposure: Yes alcohol intake: never substance use type: does not use 04/22/17 1223 <Electronically signed by Howie Parikh MD> Date Howie Parikh MD Cosigner Signature: Date (if applicable) CC: Apollo Arango MD ALLERGIES ALLERGIES DATE TYPE / NAME / CODE REACTION SEVERITY SOURCE CODE 03/16/2018 Drug Penicillins/F0010 Anaphylaxis SV [place] Allergy/41 20650(RXNORM) Community 2000096([facility]) Repository 03/16/2018 Drug Sulfa Unknown Unknown [place] Allergy/41 (Sulfonamide Community 1409765( Antibiotics)/F001 [facility]) 394442(RXNORM) Repository 03/16/2018 Drug niacin/[id number] low bp Unknown Saw Allergy/41 (RXNORM) [facility] 0244179([facility]) Repository 03/16/2018 Drug diazepam/B8572651 hyper opposite Unknown Saw Allergy/41 61(RXNORM) effect desired [facility] 7601672([facility]) Repository 03/16/2018 Drug lactose/[id number] Unknown SV T[place]erman Allergy/41 2(RXNORM) [facility] 8082728([facility]) Repository 03/16/2018 Drug adhesive/[id number] Rash Unknown [place] Allergy/41 45(RXNORM) [facility] 8020480([facility]) Repository 03/16/2018 Drug simvastatin/F0060 Pain in joints Unknown [place] Allergy/41 84351(RXNORM) [facility] 4060227([facility]) Repository Drug/82922 Tape Rash Yarsanism 1003([facility]) System Repository Drug/66749 penicillins shock Yarsanism 1003([facility]) System Repository Drug/63172 Valium hyper Yarsanism 1003([facility]) System Repository Drug/73985 Sulpho-Lac Yarsanism 1003([facility]) System Repository Drug/15996 Niaspan ER blood pressure Yarsanism 1003([facility]) System Repository Drug/64675 statins LEG CRAMPS Yarsanism 1003([facility]) System Repository ENCOUNTERS ENCOUNTERS ADMIT/DISCHARGE ACCOUNT NUMBER ADMITTING ENCOUNTER LOCATION SOURCE CLASS 04/05/2018 1714 Ambulatory Building:[facility] [place] Practices Repository 03/22/2018/04/03/20 [id number] Vinny Carlton Inpatient [place] Saw [address] [facility] ding:TCURoom Repository : WWN60Dnd: 1 03/16/2018/03/22/20 [id number] Nav Inpatient [place] Saw [address] [facility] ding:MC9Jeln Repository : XI855Drk: 1 03/16/2018 [id number] Lisa Chopra BMSBuilding: Saw Olvin BMS.WIP [facility] Repository 03/16/2018 [id number] Jopperi, Ambulatory BMSBuilding: Saw Olvin BMS.[facility], [facility]1983 Repository 03/16/2018 [id number] Nav, Ambulatory BMSBuilding: [place] Olvin BMS.[facility]ly [facility], [facility]1983 Repository 03/16/2018 [id number] Nav, Ambulatory BMSBuilding: [place] Olvin BMS.[facility]ly [facility], [facility]1983 Repository 03/16/2018 [id number] Nav, Ambulatory BMSBuilding: [place] Olvin BMS.[facility]ly [facility], [facility]1983 Repository 03/16/2018 [id number] Nav, Ambulatory BMSBuilding: [place] Olvin BMS.[facility]ly [facility], [facility]–1983 Repository 03/16/2018 [id number] Nav, Ambulatory BMSBuilding: Saw Olvin BMS.[facility]ly [facility], [facility]–1983 Repository 03/16/2018 [id number] Nav, Ambulatory BMSBuilding: [place] Olvin BMS.[facility]ly [facility], [facility]–1983 Repository 03/14/2018/03/14/20 [id number] Ambulatory BMSBuilding: [place]erman 18 BMS.[facility] Repository 02/16/2018 [id number] Changumbar, [facility] ding:.[facility] Repository 02/16/2018 [id number] Ambulatory [facility] ding:OLS.L Repository TCC 02/09/2018 [id number] Ambulatory [facility] ding:OLS.L Repository TCC 02/04/2018/02/05/20 [id number] Ambulatory BMSBuilding: [place]uckerman 18 BMS.[facility] Repository 02/02/2018 [id number] Ambulatory [facility] ding:OLS.L Repository TCC 01/24/2018 [id number] Ambulatory [facility] ding:PT Repository 01/22/2018/01/28/20 [id number] Shaw, Inpatient [place] Tuckerman 18 [facility] ding:PCURoom Repository : IMN535Wbp: 1 01/22/2018 [id number] Agannalise, Ambulatory BMSBuilding: [place] Josiah BMS.[facility], [facility]–1983 Repository 01/22/2018 [id number] Agyepong, Ambulatory BMSBuilding: Saw Rahman BMS.[facility], [facility]–1983 Repository 01/22/2018 [id number] Agyepong, Ambulatory BMSBuilding: Saw Rahman BMS..[facility] Repository 01/22/2018 [id number] Agyepong, Ambulatory BMSBuilding: Saw Rahman BMS.[facility], [facility] Repository 01/22/2018 [id number] Agyepong, Ambulatory BMSBuilding: Saw Rahman BMS..[facility] Repository 01/22/2018 [id number] Agyepong, Ambulatory BMSBuilding: Saw Rahman BMS.[facility], [facility] Repository 01/22/2018 [id number] Agyepong, Ambulatory BMSBuilding: Saw Rahman BMS.[facility]ly [facility], [facility]–1983 Repository 01/22/2018/01/28/20 [id number] Ambulatory BMSBuilding: [address] Repository 01/22/2018/01/28/20 [id number] Ambulatory BMSBuilding: [address] Repository 01/22/2018 [id number] Agyepong, Ambulatory BMSBuilding: Saw Rahman BMS.[facility]ly [facility], [facility] Repository 01/10/2018/01/11/[id number] ding:[facility] crest Repository 01/04/2018 [id number] Ambulatory [facility] ding:PSN Repository 12/17/2017 [id number] Ambulatory [facility] ding:PSN Repository 12/16/2017/12/17/19 [id number] Ambulatory BMSBuilding: Saw 18 BMS.[facility] Repository 12/16/2017 [id number] Ambulatory BMSBuilding: [facility] Repository 12/10/2017/12/11/[id number] Zumbar, [address] ding:[facility] Repository 12/10/2017 [id number] Ambulatory [address] [place] [address] Repository 12/09/2017 [id number] Ambulatory [facility] ding:CT Repository 12/06/2017/12/07/[id number] Regional ding:[facility] crestRoom: Repository CD:[id number] 11/24/2017/11/25/19 [id number] Ambulatory BMSBuilding: [place]erman 18 BMS.[facility] Repository 11/22/2017 [id number] [facility] Regional ding:[facility] crest Repository 11/22/2017/11/23/[id number] ding:[facility] crestRoom: Repository CD:[id number] 11/12/2017/11/13/[id number] ding:[facility] Repository 11/12/[id number] Repository 11/08/2017 [id number] Ambulatory [facility] ding:CT Repository 11/04/2017 [id number] Ambulatory [facility] Hospital ding:CT Repository 11/01/2017 [id number] Ambulatory [facility] Hospital ding:[facility] Repository 10/25/2017 [id number] Ambulatory [facility] ding:MTRAD Repository 10/22/2017/10/23/[id number] Regional ding:[facility] Repository 10/21/2017 [id number] Ambulatory [facility] Hospital ding:[facility] Repository 10/20/2017/10/21/19 [id number] Emergency [address] ding:ED Repository 10/19/2017/10/20/[id number] ding:[facility] crest Repository 10/11/2017/10/12/19 [id number] Ambulatory BMSBuilding: [place]erman 18 BMS.[facility] Repository 09/14/2017/09/15/19 [id number] Ambulatory BMSBuilding: Saw 18 BMS.[facility] Repository 09/14/2017 [id number] Ambulatory [facility] ding:RAD Repository 09/02/2017 [id number] Ambulatory [facility] ding:RAD Repository 09/02/2017/09/03/19 [id number] Ambulatory BMSBuilding: Saw 18 BMS.[facility] Repository 08/24/2017 [id number] Ambulatory BMSBuilding: Saw BMS.[facility] Repository 08/19/2017 [id number] Ambulatory BMSBuilding: Saw BMS.[facility] Repository 07/28/2017/02/28/20 [id number] Zumbar, Ambulatory [address] Regional ding:[facility] Repository 07/27/2017/07/28/19 [id number] [facility], [address] Regional ding:[facility] Repository 07/27/2017 [id number] [facility] ding:[facility] crest Repository 07/27/2017/07/28/[id number] ding:[facility] crest Repository 07/22/2017 [id number] Ambulatory [facility] ding:RAD.FUT Repository URE 07/20/2017/07/21/19 [id number] Ambulatory BMSBuilding: Saw 18 BMS.[facility] Repository 07/05/2017/07/06/19 [id number] [address] [facility] Repository ing:Yaya nd 06/25/2017/06/26/19 [id number] Ambulatory [address] ding:[facility]C Repository 06/25/2017 [id number] Ambulatory BMSBuilding: Tuckerman [facility] Repository 06/22/2017/06/23/19 [id number] Emergency [address] ding:ED Repository 06/19/2017/06/20/19 [id number] Emergency [address] ding:ED Repository 06/18/2017/06/19/19 [id number] Emergency [address] ding:ED Repository 06/08/2017 [id number] Ambulatory [facility] ding:RAD Repository 05/26/2017/05/26/19 [id number] Ambulatory BMSBuilding: [place] 18 BMS.[facility] Repository 05/24/2017/05/24/19 [id number] Ambulatory [address] Repository ing:Yaya Matsonm: Procedure 05/14/2017/05/14/19 [id number] Han Valdez [address] ding:[facility] Repository 05/11/2017 [id number] Ambulatory [facility] ding:LABSPEC Repository 05/03/2017/05/03/19 [id number] Ambulatory [address] Repository ing:Yaya Matsonm: Room 3 04/22/2017/04/22/19 [id number] Ambulatory BMSBuilding: [place]erman 18 BMS.[facility] Repository 04/22/2017/04/22/19 [id number] Ambulatory BMSBuilding: [place]erman 18 BMS.[facility] Repository FUNCTIONAL STATUS FUNCTIONAL STATUS No Functional Status Records FoundEQUIPMENT EQUIPMENT No Equipment Records FoundPAYERS PAYERS ENCOUNTER GUARANTOR PAYER SUBSCRIBER SOURCE 04/05/2018 HUNTER Ortiz Primary HUNTER LAGUNAS: Insurance:MedicarePoli PHILLIPSDOB: Repository [id number] N cy Number: [id number] [facility] [id number] N [facility], Date:8670-14-41[place], [place] [address]Nzq: Name:OFFICE [place] [address]Wme: [id number], [place] (HP)Tel: [phone]: [phone]) (WM) [phone] (IW) [phone] 04/05/2018 Secondary HUNTER H OHIP Practices Insurance:Humana/Suppl PHILLIPSDOB: Repository [facility] [id number] Number: N Market [id number] [facility], Date:7274-76-66Nklx [place] [address]Nxg: Name:[facility] [address] [place] [address] () [address]MN: 03/22/2018 HUNTER H Primary HUNTER H Saw MADHAVI Jr.416 Insurance:MEDICARE MADHAVI Jr.: Community N MARKET PART A BPolicy Number: [id number], [id number] [place]ository [place] [address]Omw: Date:2018-03-22 () 03/22/2018 Secondary HUNTER H Saw Insurance:HUMANA HENDRICKSON Jr.: [facility] [id number] Hospital Number: Repository [id number] Date:7071-14-51KE[address] [address]SD: 03/22/2018 Tertiary NOT GIVENUNK Saw Insurance:SELF PAY [facility] Number: Effective Repository Date:2018-03-22 03/16/2018 HUNTER H Primary HUNTER H [place] HENDRICKSON Jr.416 Insurance:MEDICARE MADHAVI Jr.: Community N MARKET PART A BPolicy Number: [id number] Hospital, [id number] [place]ository [place] [address]Nff: Date:2018-03-16 () 03/16/2018 Secondary HUNTER H T[place]erman Insurance:HUMANA HENDRICKSON Jr.: [facility] [id number] Hospital Number: Repository [id number] Date:2246-10-73YP[address] [address]DB: 03/16/2018 Tertiary NOT GIVENUNK [place] Insurance:SELF PAY [facility] Hospital Number: Effective Repository Date:2018-03-16 03/16/2018 HUNTER H Primary HUNTER H Saw HENDRICKSON Jr.416 Insurance:MEDICARE HENDRICKSON Jr.: Community N MARKET PART A BPolicy Number: [id number] Regional Hospital [facility] [id number] Repository [place] [address]Evb: Date:2018-03-16 () 03/16/2018 Secondary HUNTER H Saw Insurance:HUMANA HENDRICKSON Jr.: [facility] [id number] Hospital Number: Repository [id number] Date:9824-43-12FU [address] [address]SG: 03/16/2018 Tertiary NOT GIVENUNK Saw Insurance:SELF PAY [facility] Hospital Number: Effective Repository Date:2018-03-16 03/16/2018 HUNTER H Primary HUNTER H Saw HENDRICKSON Jr.416 Insurance:MEDICARE HENDRICKSON Jr.: Community N MARKET PART A BPolicy Number: [id number] Regional Hospital South [id number] Repository [place] [address]Cws: Date:2018-03-16 () 03/16/2018 Secondary HUNTER H Saw Insurance:HUMANA HENDRICKSON Jr.: [facility] [id number] Hospital Number: Repository [id number] Date:6257-72-96JK [address] [address]ZT: 03/16/2018 Tertiary NOT GIVENUNK Saw Insurance:SELF PAY [facility] Hospital Number: Effective Repository Date:2018-03-16 03/16/2018 HUNTER H Primary HUNTER H Saw HENDRICKSON Jr.416 Insurance:MEDICARE HENDRICKSON Jr.: Community N MARKET PART A BPolicy Number: [id number] Regional Hospital South [id number] [place]ository [place] [address]Gwh: Date:2018-03-16 () 03/16/2018 Secondary HUNTER H Tuckerman Insurance:HUMANA HENDRICKSON Jr.: [facility] [id number] Hospital Number: Repository [id number] Date:8431-49-37OB [address] [address]IJ: 03/16/2018 Tertiary NOT GIVENUNK Saw Insurance:SELF PAY [facility] Number: Effective Repository Date:2018-03-16 03/16/2018 HUNTER H Primary HUNTER H Saw HENDRICKSON Jr.416 Insurance:MEDICARE HENDRICKSON Jr.: Community N MARKET PART A BPolicy Number: [id number] Regional Hospital South [id number] [place] [address]Qxi: Date:2018-03-16 () 03/16/2018 Secondary HUNTER H Saw Insurance:HUMANA HENDRICKSON Jr.: [facility] [id number] Hospital Number: Repository [id number] Date:8123-34-77CF[address] [address]JE: 03/16/2018 Tertiary NOT GIVENUNK Saw Insurance:SELF PAY [facility] Number: Effective Repository Date:2018-03-16 03/16/2018 HUNTER H Primary HUNTER H Saw HENDRICKSON Jr.416 Insurance:MEDICARE HENDRICKSON Jr.: Community N MARKET PART A BPolicy Number: [id number] Regional Hospital South [id number] Repository [place] [address]Fzi: Date:2018-03-16 () 03/16/2018 Secondary HUNTER H Tuckerman Insurance:HUMANA HENDRICKSON Jr.: [facility] [id number] [place] [address] Number: Repository [id number] Date:8605-18-03JD[address] [address]VY: 03/16/2018 Tertiary NOT GIVENUNK [place] Insurance:SELF PAY [facility] Number: Effective Repository Date:2018-03-16 03/16/2018 HUNTER H Primary HUNTER H Tuck[place] HENDRICKSON Jr.416 Insurance:MEDICARE HENDRICKSON Jr.: [facility] N MARKET PART A BPolicy Number: [id number] Regional Hospital South [id number] Repository [place] [address]Bhe: Date:2018-03-16 () 03/16/2018 Secondary HUNTER H Tuckerman Insurance:HUMANA HENDRICKSON Jr.: [facility] [id number] Hospital Number: Repository [id number] Date:4307-36-11PU [address] [address]DX: 03/16/2018 Tertiary NOT GIVENUNK Saw Insurance:SELF PAY [facility] Number: Effective Repository Date:2018-03-16 03/16/2018 HUNTER H Primary HUNTER H Saw HENDRICKSON Jr.416 Insurance:MEDICARE HENDRICKSON Jr.: [facility] N MARKET PART A BPolicy Number: [id number] Regional Hospital South [id number] Repository [place] [address]Elx: Date:2018-03-16 () 03/16/2018 Secondary HUNTER H Saw Insurance:HUMANA MADHAVI Jr.: [facility] [id number] Hospital Number: Repository [id number] Date:0588-71-80VY [address] [address]JZ: 03/16/2018 Tertiary NOT GIVENUNK Saw Insurance:SELF PAY [facility] Number: Effective Repository Date:2018-03-16 03/16/2018 HUNTER H Primary HUNTER H Tuckerman HENDRICKSON Jr.416 Insurance:MEDICARE HENDRICKSON Jr.: [facility] N MARKET PART A BPolicy Number: [id number] Regional Hospital South [id number] Repository [place] [address]Lbi: Date:2018-03-16 () 03/16/2018 Secondary HUNTER H Saw Insurance:HUMANA HENDRICKSON Jr.: [facility] [id number] Hospital Number: Repository [id number] Date:5933-97-89SV [address] [place] [address]VR: 03/16/2018 Tertiary NOT GIVENUNK [place] Insurance:SELF PAY [facility] Number: Effective Repository Date:2018-03-16 03/14/2018 HUNTER H Primary HUNTER H [place] MADHAVI Lloyd416 Insurance:MEDICARE MADHAVI Orellana.: [facility] N MARKET PART A BPolicy Number: [id number] Hospital, [id number] [place] [address]Mbs: Date:2018-02-10 (PK) 03/14/2018 Secondary HUNTER H Tuckerman Insurance:HUMANA MADHAVI Lloyd: [facility] [id number] Hospital Number: Repository [id number] Date:1374-43-64IY[address] [address]KR: 03/14/2018 Tertiary NOT GIVENUNK Saw Insurance:SELF PAY [facility] Number: Effective Repository Date:2018-03-02 02/16/2018 HUNTER H Primary HUNTER H Yarsanism MADHAVI OrellanaDOB: Insurance:MedicareRamin CampB: [facility] cy Number: Effective [id number] System MARKET Date:2018-02-16 MARKET Repository [facility] [id number] [place] [address] Name:CD:[id number] [place] [id number]: 320393BMEIRWYUBF, [place] [address]Zqd: [id number]: [phone] (QO) [phone] (HP) () 02/16/2018 Secondary HUNTER H Yarsanism Insurance:HUMANAPolicy MADHAVI OrellanaDOB: [facility] Number: Effective [id number] System Date:2018-02-16 MARKET Repository [id number], Name:CD:[id number] [address] [address]Els: [id number]: [phone] (HP) () 02/16/2018 HUNTER H Primary Insurance:SELF NOT GIVENUNK Saw HENDRICKSON Jr.416 PAY INSURANCEPolicy Community N MARKET Number: Effective [facility], Date:2018-02-16 Repository [place] [address]Aqa: (HP) 02/09/2018 HUNTER H Primary Insurance:SELF NOT GIVENUNK [place] HENDRICKSON Jr.416 PAY INSURANCEPoly [facility] N MARKET Number: Effective [facility], Date:2018-02-09 [place]ository [place] [address]Fjt: () 02/04/2018 HUNTER H Primary HUNTER H Saw HENDRICKSON Jr.416 Insurance:MEDICARE MADHAVI Orellana.: Community N MARKET PART A BPolicy Number: [id number] Hospital, [id number] Repository [place] [address]Qvy: Date:2018-01-26 () 02/04/2018 Secondary HUNTER H Tuckerman Insurance:HUMANA MADHAVI Lloyd: Community COMMERCIALPoladair [facility] [id number] Hospital Number: Repository [id number] Date:8790-39-58KB[address] [address]WL: 02/04/2018 Tertiary NOT GIVENUNK Tuckerman Insurance:SELF PAY [facility] Number: Effective Repository Date:2018-02-04 02/02/2018 HUNTER H Primary Insurance:SELF NOT GIVENUNK Saw HENDRICKSON Jr.416 PAY INSURANCEPoly [facility] N MARKET Number: Effective [facility], Date:2018-02-02 [place]ository [place] [address]Hum: () 01/24/2018 HUNTER H Primary HUNTER H Saw HENDRICKSON Jr.416 Insurance:MEDICARE MADHAVI Orellana.: Community N MARKET PART A BPolicy Number: [id number] Regional Hospital South [id number] [place]ository [place] [address]Aca: Date:2018-01-17 () 01/24/2018 Secondary HUNTER H Saw Insurance:HUMANA HENDRICKSON Jr.: [facility] [id number] Hospital Number: Repository [id number] Date:2895-23-16EY [address] [place] [address]OF: 01/24/2018 Tertiary NOT GIVENUNK Tuckerman Insurance:SELF PAY [facility] Number: Effective Repository Date:2018-01-17 01/22/2018 HUNTER H Primary HUNTER H Tuckerman HENDRICKSON Jr.416 Insurance:MEDICARE HENDIRCKSON Jr.: Community N MARKET PART A BPolicy Number: [id number] Regional Hospital South [id number] [place]ository [place] [address]Klg: Date:2018-01-21 () 01/22/2018 Secondary HUNTER H Saw Insurance:HUMANA HEDNRICKSON Jr.: [facility] [id number] Hospital Number: Repository [id number] Date:4557-08-44AX[address] [address]KM: 01/22/2018 Tertiary NOT GIVENUNK Saw Insurance:SELF PAY [facility] Number: Effective Repository Date:2018-01-21 01/22/2018 HUNTER H Primary HUNTER H Saw HENDRICKSON Jr.416 Insurance:MEDICARE HENDRICKSON Jr.: Community N MARKET PART A BPolicy Number: [id number] Regional Hospital South [id number] [place]ository [place] [address]Twp: Date:2018-01-21 () 01/22/2018 Secondary HUNTER H Tuckerman Insurance:HUMANA HENDRICKSON Jr.: [facility] [id number] Hospital Number: Repository [id number] Date:3087-58-46RB[address] [address]ZV: 01/22/2018 Tertiary NOT GIVENUNK Tuck[place] Insurance:SELF PAY [facility] Hospital Number: Effective Repository Date:2018-01-22 01/22/2018 HUNTER H Primary HUNTER H [place] HENDRICKSON Jr.416 Insurance:MEDICARE HENDRICKSON Jr.: Community N MARKET PART A BPolicy Number: [id number] Regional Hospital South [id number] [place]ository [place] [address]Juu: Date:2018-01-21 () 01/22/2018 Secondary HUNTER H Tuckerman Insurance:HUMANA HENDRICKSON Jr.: [facility] [id number] Hospital Number: Repository [id number] Date:8988-27-36RY[address] [address]CQ: 01/22/2018 Tertiary NOT GIVENUNK Tuckerman Insurance:SELF PAY [facility] Number: Effective Repository Date:2018-01-22 01/22/2018 HUNTER H Primary HUNTER H Saw HENDRICKSON Jr.416 Insurance:MEDICARE HENDRICKSON Jr.: Community N MARKET PART A BPolicy Number: [id number] Regional Hospital South [id number] [place]ository [place] [address]Upm: Date:2018-01-21 () 01/22/2018 Secondary HUNTER H Tuckerman Insurance:HUMANA HENDRICKSON Jr.: [facility] [id number] Hospital Number: Repository [id number] Date:7859-62-73MG[address] [address]UR: 01/22/2018 Tertiary NOT GIVENUNK Tuckerman Insurance:SELF PAY [facility] Number: Effective Repository Date:2018-01-22 01/22/2018 HUNTER H Primary HUNTER H Saw HENDRICKSON Jr.416 Insurance:MEDICARE HENDRICKSON Jr.: Community N MARKET PART A BPolicy Number: [id number] Regional Hospital South [id number] [place]ository [place] [address]Pkq: Date:2018-01-21 () 01/22/2018 Secondary HUNTER H Tuckerman Insurance:HUMANA HENDRICKSON Jr.: [facility] [id number] Hospital Number: Repository [id number] Date:0823-49-74KT [address] [address]OC: 01/22/2018 Tertiary NOT GIVENUNK Saw Insurance:SELF PAY [facility] Number: Effective Repository Date:2018-01-22 01/22/2018 HUNTER H Primary HUNTER H [place]uck[place] HENDRICKSON Jr.416 Insurance:MEDICARE HENDRICKSON Jr.: Community N MARKET PART A BPolicy Number: [id number] Regional Hospital South [id number] [place] [address]Xsx: Date:2018-01-21 () 01/22/2018 Secondary HUNTER H Saw Insurance:HUMANA HENDRICKSON Jr.: [facility] [id number] Hospital Number: Repository [id number] Date:3783-07-85FM[address] [address]SF: 01/22/2018 Tertiary NOT GIVENUNK Tuck[place] Insurance:SELF PAY [facility] Number: Effective Repository Date:2018-01-22 01/22/2018 HUNTER H Primary HUNTER H Tuck[place] HENDRICKSON Jr.416 Insurance:MEDICARE HENDRICKSON Jr.: Community N MARKET PART A BPolicy Number: [id number] Regional Hospital South [id number] [place]ository [place] [address]Mbh: Date:2018-01-21 () 01/22/2018 Secondary HUNTER H Saw Insurance:HUMANA HENDRICKSON Jr.: [facility] [id number] Hospital Number: Repository [id number] Date:3041-47-36DJ[address] [address]VP: 01/22/2018 Tertiary NOT GIVENUNK Saw Insurance:SELF PAY [facility] Number: Effective Repository Date:2018-01-22 01/22/2018 HUNTER H Primary HUNTER H Saw HENDRICKSON Jr.416 Insurance:MEDICARE HENDRICKSON Jr.: Community N MARKET PART A BPolicy Number: [id number] Regional Hospital South [id number] [place]ository [place] [address]Dyo: Date:2018-01-21 () 01/22/2018 Secondary HUNTER H Tuckerman Insurance:HUMANA HENDRICKSON Jr.: [facility] [id number] Hospital Number: Repository [id number] Date:8801-90-08IQ[address] [address]PE: 01/22/2018 Tertiary NOT GIVENUNK Tuckerman Insurance:SELF PAY [facility] Number: Effective Repository Date:2018-01-22 01/22/2018 HUNTER H Primary HUNTER H Saw HENDRICKSON Jr.416 Insurance:MEDICARE HENDRICKSON Jr.: [facility] N MARKET PART A BPolicy Number: [id number] Regional Hospital South [id number] [place]ository [place] [address]Sbn: Date:2018-01-21 () 01/22/2018 Secondary HUNTER H Tuckerman Insurance:HUMANA MADHAVI Orellana.: [facility] [id number] Hospital Number: Repository [id number] Date:8425-86-51QV[address] [address]FX: 01/22/2018 Tertiary NOT GIVENUNK Saw Insurance:SELF PAY [facility] Number: Effective Repository Date:2018-01-22 01/22/2018 HUNTER H Primary HUNTER H Saw HENDRICKSON Jr.416 Insurance:MEDICARE HENDRICKSON Jr.: [facility] N MARKET PART A BPolicy Number: [id number] Regional Hospital South [id number] [place]ository [place] [address]Acz: Date:2018-01-21 () 01/22/2018 Secondary HUNTER H Saw Insurance:HUMANA MADHAVI Orellana.: [facility] [id number] Hospital Number: Repository [id number] Date:0611-30-08EY [address] [place] [address]YZ: 01/22/2018 Tertiary NOT GIVENUNK Saw Insurance:SELF PAY [facility] Number: Effective Repository Date:2018-01-22 01/22/2018 HUNTER H Primary HUNTER H Tuck[place] MADHAVI Lloyd416 Insurance:MEDICARE MADHAVI Lloyd: Community N MARKET PART A BPolicy Number: [id number] Hospital, [id number] [place] [address]Dgs: Date:2018-01-21 () 01/22/2018 Secondary HUNTER H Saw Insurance:HUMANA MADHAVI Lloyd: [facility] [id number] Hospital Number: Repository [id number] Date:5497-57-94AL[address] [address]DT: 01/22/2018 Tertiary NOT GIVENUNK T[place] Insurance:SELF PAY [facility] Hospital Number: Effective Repository Date:2018-01-22 01/10/2018 HUNTER H Primary HUNTER H Yarsanism MADHAVI OrellanaDOB: Insurance:MedicareRamin CampB: [facility] cy Number: Effective [id number] System MARKET Date:2017-12-06 MARKET Repository [facility] 2565-17-01Zwuh[address] Name:CD:[id number] [place] [id number]: [id number], [place] [address]Zfu: [phone]: [phone] ([phone] (HP) () 01/10/2018 Secondary HUNTER H Yarsanism Insurance:HUMANAPolicy MADHAVI OrellanaDOB: [facility] Number: Effective [id number] System Date:2017-12-06 MARKET Repository 6478-86-28Tzui[address] [place] [address] Name:CD:[id number] [address] [address]Iax: [phone]: [phone] (HP) () 01/04/2018 HUNTER H Primary HUNTER H Tuckerman HENDRICKSON Jr.416 Insurance:MEDICARE HENDRICKSON Jr.: Community N MARKET PART A BPolicy Number: [id number] Hospital, [id number] [place]ository [place] [address]Qfp: Date:2017-12-16 () 01/04/2018 Secondary HUNTER H [place]uck[place] Insurance:HUMANA HENDRICKSON Jr.: [facility] [id number] Hospital Number: Repository [id number] Date:5362-80-50NU [address] [address]BJ: 01/04/2018 Tertiary NOT GIVENUNK T[place] Insurance:SELF PAY [facility] Number: Effective Repository Date:2017-12-16 12/17/2017 HUNTER H Primary HUNTER H Tuck[place] HENDRICKSON Jr.416 Insurance:MEDICARE HENDRICKSON Jr.: Community N MARKET PART A BPolicy Number: [id number] Regional Hospital South [id number] [place]ository [place] [address]Erl: Date:2017-12-16 () 12/17/2017 Secondary HUNTER H Saw Insurance:HUMANA HENDRICKSON Jr.: [facility] [id number] Hospital Number: Repository [id number] Date:9533-44-91OX [address] [address]NW: 12/17/2017 Tertiary NOT GIVENUNK Tuck[place] Insurance:SELF PAY [facility] Number: Effective Repository Date:2017-12-16 12/16/2017 HUNTER H Primary HUNTER H Saw HENDRICKSON Jr.416 Insurance:MEDICARE HENDRICKSON Jr.: Community N MARKET PART A BPolicy Number: [id number] Regional Hospital South [id number] [place] [address]Idl: Date:2017-09-14 (HP) 12/16/2017 Secondary HUNTER H Tuckerman Insurance:HUMANA MADHAIV Lloyd: [facility] [id number] Hospital Number: Repository [id number] Date:0524-27-07VS [address] [place] [address]JJ: 12/16/2017 Tertiary NOT GIVENUNK Saw Insurance:SELF PAY [facility] Number: Effective Repository Date:2017-12-09 12/16/2017 HUNTER H Primary HUNTER H Saw MADHAVI Lloyd416 Insurance:MEDICARE MADHAVI Lloyd: [facility] MARKET PART A BPolicy Number: [id number] Regional Hospital South [id number] [place] [address]Uds: Date:2017-12-16 () 12/16/2017 Secondary HUNTER H Saw Insurance:HUMANA MADHAVI Lloyd: [facility] [id number] Hospital Number: Repository [id number] Date:4765-64-46ZY[address] [address]MU: 12/16/2017 Tertiary NOT GIVENUNK Saw Insurance:SELF PAY [facility] Number: Effective Repository Date:2017-12-16 12/10/2017 HUNTER H Primary HUNTER H Yarsanism MADHAVI CampB: Insurance:MedicareRamin CampB: [facility] N cy Number: Effective [id number] System MARKET Date:2017-12-07 MARKET Repository [facility] 8039-60-37Riyi[address] Name:CD:[id number] [facility] [address]Tkm: [id number][place] [address]Soh: [phone]: [phone]) (HP) [phone] (HP) (WP) 12/10/2017 Secondary [facility] Insurance:HUMANAPolicy [facility] Number: Effective [id number] System Date:2017-12-07 MARKET Repository 8569-92-31Wwcu[facility], Name:CD:[id number] [facility] [address]STSZXLFQC, [place] [address]Xys: [phone]: [phone] (HP) (WP) 12/10/2017 [facility] PHILLIPSDOB: Insurance:MedicarePoli [place]DOB: [facility] cy Number: [id number] Repository MARKET [id number] N [facility], Date:Plan Name:[facility] [id number]: [phone]: () (HP) 12/10/2017 [facility] Insurance:MedicarePoli [place]DOB: [facility] cy Number: [id number] Repository [id number] N MARKET Date:Plan Name:[place], [place] [phone]: () 12/10/2017 [facility] Insurance:ChoiceCare PHILLIPSDOB: [facility] Number: [id number] Repository [id number] N MARKET Date:Plan Name:[place], [place] [phone]: (HP) 12/09/2017 [facility] Saw HENDRICKSON Jr.416 Insurance:MEDICARE MADHAVI Lloyd: [facility] N MARKET PART A BPolicy Number: [id number] [facility] [id number] [place]ository [place] [address]Vjq: Date:2017-12-06 (HP) 12/09/2017 Secondary [facility] Tuckerman Insurance:HUMANKarishma HENDRICKSON Jr.: Community COMMERCIALPolicy [id number] Hospital Number: Repository [id number] Date:7997-04-48GZ[address] [address]IF: 12/09/2017 Tertiary NOT GIVENUNK Saw Insurance:SELF PAY [facility] Hospital Number: Effective Repository Date:2017-12-06 12/06/2017 HUNTER H Primary HUNTER H Yarsanism HENDRICKSON JrDOB: Insurance:MedicareOreni MADHAVI OrellanaDOB: [facility] cy Number: Effective [id number] System MARKET Date:2017-11-30 MARKET Repository [facility] 8499-44-69Bwhu[address] Name:CD:[id number] [address]1221Tel: [id number] [place] [address]Tel: [phone]: [phone]) (HP) [phone] (HP) (WP) 12/06/2017 Secondary HUNTER H Yarsanism Insurance:HUMANAPolicy HENDRICKSON DOB: [facility] Number: Effective [id number] System Date:2017-11-30 MARKET Repository 7305-19-95Puxm[address] [place] [address], Name:CD:[id number] [address] [address]Dxw: [phone]: [phone] (HP) (WP) 11/24/2017 HUNTER H Primary HUNTER H Saw MADHAVI Lloyd416 Insurance:MEDICARE MADHAVI Lloyd: [facility] N MARKET PART A BPolicy Number: [id number] Hospital, [id number] [place]ository [place] [address]Vvo: Date:2017-05-26 (HP) 11/24/2017 Secondary HUNTER H Saw Insurance:HUMANKarishma HENDRICKSON Jr.: [facility] COMMERCIALPolicy [id number] Hospital Number: Repository [id number] Date:2752-70-01XM [address] [place] [address]CP: 11/24/2017 Tertiary NOT GIVENUNK Saw Insurance:SELF PAY Community [facility] Number: Effective Repository Date:2017-11-24 11/22/2017 HUNTER H Primary HUNTER HENDRICKSON JrDOB: Insurance:MedicarePoli MADHAVI JrDOB: [facility] N cy Number: Effective [id number] System MARKET Date:2017-11-22 MARKET Repository [facility] 9007-30-33Qopr[address] Name:CD:[id number] [facility] [address]Nyl: [id number], [place] [address]Kyu: [phone]: [phone]) (HP) [phone] (HP) (WP) 11/22/2017 Secondary HUNTER [place] Insurance:HUMANAPolicy MADHAVI OrellanaDOB: [facility] Number: Effective [id number] System Date:2017-11-22 MARKET Repository 6255-95-93Ijrl[address], Name:CD:[id number] [address] [address]Bmm: [phone]: [phone] (HP) (WP) 11/22/2017 HUNTER H Primary HUNTER HENDRICKSON JrDOB: Insurance:MedicarePolrene HENDRICKSON JrDOB: [facility] N cy Number: Effective [id number] System MARKET Date:2017-10-19 MARKET Repository [facility] 9001-85-56Acku[address] Name:CD:[id number] [address]Qgx: [id number], [place] [address]Vyx: [phone]: [phone]) (HP) [phone] (HP) (WP) 11/22/2017 Secondary HUNTER Angel Yarsanism Insurance:HUMANAPolswapnil HENDRICKSON JrDOB: [facility] Number: Effective [id number] System Date:2017-10-19 MARKET Repository [address] [place] [address], Name:CD:[id number] [address]1221Tel: [phone]: [phone] (HP) (WP) 11/12/2017 [facility] HospitalDOB: Insurance:MedicarePoli PHILLIPS JrDOB: [facility] N cy Number: Effective [id number] System MARKET Date:2017-11-11 MARKET Repository [address] Name:CD:[id number] [address]1221Tel: 967504ETRUZHBWEVASHLEY [place]IL[place] [address]Tel: [phone]: [phone] (HP) [phone] (HP) (WP) 11/12/2017 Secondary [facility] Insurance:HUMANAPolswapnil HENDRICKSON DOB: [facility] Health Number: Effective [id number] System Date:2017-11-11 MARKET Repository 2233-51-72Frle[address], Name:CD:[id number] [address] [address]Xun: [phone]: [phone] (HP) (WP) 11/12/2017 Critical access hospital MADHAVIDOB: Insurance:MedicarePoli PHILLIPSDOB: [facility] N cy Number: [id number] Repository MARKET [id number] N MARKET [facility], Date:Plan Name:Johny Schwarz [facility] [id number]: [phone]: (HP) (HP) 11/12/2017 Secondary [facility] Insurance:MedicarePoli PHILLIPSDOB: [facility] cy Number: [id number] Repository [id number] N MARKET Date:Plan Name:Johny Myles [place], [place] [id number]: (HP) 11/12/2017 Tertiary [facility] Insurance:ChoiceCare PHILLIPSDOB: [facility] HumanaPolicy Number: [id number] Repository [id number] N MARKET Date:Plan Name:[place], [place] [phone]: () 11/08/2017 HUNTER H Primary HUNTER H Saw HENDRICKSON Jr.416 Insurance:MEDICARE HENDRICKSON Jr.: Community N MARKET PART A BPolicy Number: [id number] Regional Hospital South [id number] [place]ository [place] [address]Hre: Date:2017-11-08 () 11/08/2017 Secondary ANTHONY H Tuckerman Insurance:HUMANA HENDRICKSON Jr.: [facility] [id number] Hospital Number: Repository [id number] Date:3597-22-78RH[address] [address]OZ: 11/08/2017 [facility] T[place] Insurance:SELF PAY [facility] Number: Effective Repository Date:2017-11-08 11/04/2017 HUNTER H Primary HUNTER H Tuckerman HENDRICKSON Jr.416 Insurance:MEDICARE HENDRICKSON Jr.: Community N MARKET PART A BPolicy Number: [id number] Regional Hospital South [id number] [place]ository [place] [address]Rbw: Date:2017-10-29 () 11/04/2017 Secondary HUNTER H Tuckerman Insurance:HUMANA HENDRICKSON Jr.: [facility] [id number] Hospital Number: Repository [id number] Date:3221-48-55LR[address] [address]FQ: 11/04/2017 Tertiary NOT GIVENUNK [place] Insurance:SELF PAY [facility] Number: Effective Repository Date:2017-10-29 11/01/2017 HUNTER H Primary HUNTER H Tuckerman HENDRICKSON Jr.416 Insurance:MEDICARE HENDRICKSON Jr.: Community N MARKET PART A BPolicy Number: [id number] Regional Hospital South [id number] [place]ository [place] [address]Cpl: Date:2017-11-01 () 11/01/2017 Secondary HUNTER H Tuck[place] Insurance:HUMANA HENDRICKSON Jr.: [facility] [id number] Hospital Number: Repository [id number] Date:2234-19-20PQ[address] [address]OS: 11/01/2017 Tertiary NOT GIVENUNK [place] Insurance:SELF PAY [facility] Number: Effective Repository Date:2017-11-01 10/25/2017 HUNTER H Primary HUNTER H Tuckerman HENDRICKSON Jr.416 Insurance:MEDICARE HENDRICKSON Jr.: Community N MARKET PART A BPolicy Number: [id number] Regional Hospital South [id number] Repository [place] [address]Rru: Date:2017-10-25 () 10/25/2017 Secondary HUNTER H Tuckerman Insurance:HUMANA HENDRICKSON Jr.: [facility] [id number] Hospital Number: Repository [id number] Date:1974-43-16AI[address] [address]MA: 10/25/2017 Tertiary NOT GIVENUNK Saw Insurance:SELF PAY [facility] Number: Effective Repository Date:2017-10-25 10/22/2017 HUNTER H Primary HUNTER H Yarsanism HENDRICKSON JrDOB: Insurance:MedicarePoli MADHAVI DOB: [facility] cy Number: Effective [id number] System MARKET Date:2017-10-21 MARKET Repository [facility] 3733-28-52Hipu[address] Name:CD:[id number] [place] [address]Tdm: [id number]1221Tel: [phone]: [phone] (HP) [phone] (HP) (WP) 10/22/2017 Secondary HUNTER H Yarsanism Insurance:HUMANAPolicy MADHAVI OrellanaDOB: [facility] Number: Effective [id number] System Date:2017-10-21 MARKET Repository 4941-38-38Ixga[address] [place] [address], Name:CD:[id number] [address] [address]Ikb: [phone]: [phone] (HP) (WP) 10/21/2017 HUNTER H Primary HUNTER H Saw MADHAVI Lloyd416 Insurance:MEDICARE MADHAVI Lloyd: [facility] N MARKET PART A BPolicy Number: [id number] Hospital, [id number] [place]ository [place] [address]Pbc: Date:2017-10-21 (HP) 10/21/2017 Secondary HUNTER H Saw Insurance:HUMANA MADHAVI Orellana.: Community COMMERCIALPolad[facility] [id number] Hospital Number: Repository [id number] Date:9943-12-62TU[address] [address]SE: 10/21/2017 Tertiary NOT GIVENUNK Saw Insurance:SELF PAY [facility] Hospital Number: Effective Repository Date:2017-10-21 10/20/2017 HUNTER H Primary HUNTER H Saw MADHAVI Orellana.416 Insurance:MEDICARE MADHAVI Jr.: [facility] N MARKET PART A BPolicy Number: [id number] Hospital, [id number] [place]ository [place] [address]Hdu: Date:2017-10-20 (HP) 10/20/2017 Secondary HUNTER H Tuckerman Insurance:HUMANA MADHAVI Orellana.: [facility]CIALMer[facility] Hospital [id number] Hospital Number: Repository [id number] Date:9604-67-40UH [address] [place] [address]FU: 10/20/2017 [facility]ert[facility] Saw Insurance:SELF PAY [facility] Hospital Number: Effective Repository Date:2017-10-20 10/19/2017 HUNTER H Primary HUNTER H Yarsanism HENDRICKSON JrDOB: Insurance:MedicareOreni MADHAVI OrellanaDOB: [facility] cy Number: Effective [id number] System MARKET Date:2017-10-18 MARKET Repository [facility] 0993-98-64Maxd[address] Name:CD:[id number] [place] [address]Viq: [id number], [place] [address]Tkx: [phone]: [phone]) (HP) [phone] (HP) (WP) 10/19/2017 Secondary HUNTER H Yarsanism Insurance:HUMANAPolicy HENDRICKSON JrDOB: [facility] Number: Effective [id number] System Date:2017-10-18 MARKET Repository 8892-39-18Hrdw[address], Name:CD:[id number] [address] [address]Qei: [id number]: [phone] (HP) (WP) 10/11/2017 HUNTER H Primary HUNTER H Saw MADHAVI Jr.416 Insurance:MEDICARE HENDRICKSON Jr.: Community N MARKET PART A BPolicy Number: [id number] Regional Hospital South [id number] Repository [place] [address]Vyd: Date:2017-04-07 () 10/11/2017 Secondary HUNTER H Tuckerman Insurance:HUMANA HENDRICKSON Jr.: [facility] [id number] Hospital Number: Repository [id number] Date:[id number] [address] [place] [id number]: 10/11/2017 Tertiary NOT GIVENUNK Tuckerman Insurance:SELF PAY [facility] Number: Effective Repository Date:2017-10-05 09/14/2017 HUNTER H Primary HUNTER H Tuckerman HENDRICKSON Jr.416 Insurance:MEDICARE HENDRICKSON Jr.: [facility] N MARKET PART A BPolicy Number: [id number] [facility] [id number] Repository [place] [address]Oqc: Date:2017-09-14 () 09/14/2017 Secondary HUNTER H Saw Insurance:HUMANA HENDRICKSON Jr.: [facility] [id number] Hospital Number: Repository [id number] Date:[id number] [address]BC: 09/14/2017 Tertiary NOT GIVENUNK Tuckerman Insurance:SELF PAY [facility] Hospital Number: Effective Repository Date:2017-09-14 09/14/2017 HUNTER H Primary HUNTER H Tuckerman HENDRICKSON Jr.416 Insurance:MEDICARE HENDRICKSON Jr.: [facility] N MARKET PART A BPolicy Number: [id number] Regional Hospital South [id number] [place]ository [place] [address]Tjx: Date:2017-09-14 () 09/14/2017 Secondary HUNTER H Tuckerman Insurance:HUMANA HENDRICKSON Jr.: [facility] [id number] Hospital Number: Repository [id number] Date:6994-81-28AI [address] [address]DE: 09/14/2017 Tertiary NOT GIVENUNK Tuckerman Insurance:SELF PAY [facility] Number: Effective Repository Date:2017-09-14 09/02/2017 HUNTER H Primary HUNTER H Saw HENDRICKSON Jr.416 Insurance:MEDICARE HENDRICKSON Jr.: Community N MARKET PART A BPolicy Number: [id number] [facility] [id number] [place]ository [place] [address]Tpm: Date:2017-09-02 () 09/02/2017 Secondary HUNTER H Saw Insurance:HUMANA HENDRICKSON Jr.: [facility] [id number] Hospital Number: Repository [id number] Date:4949-50-62OL[address] [address]AK: 09/02/2017 Tertiary NOT GIVENUNK Saw Insurance:SELF PAY [facility] Number: Effective Repository Date:2017-09-02 09/02/2017 HUNTER H Primary HUNTER H Saw HENDRICKSON Jr.416 Insurance:MEDICARE HENDRICKSON Jr.: Community N MARKET PART A olicy Number: [id number] Regional Hospital [facility] [id number] [place]ository [place] [address]Gwa: Date:2017-09-02 () 09/02/2017 Secondary HUNTER H Tuckerman Insurance:HUMANA HENDRICKSON Jr.: [facility] [id number] Hospital Number: Repository [id number] Date:4044-34-71VI [address] [address]YQ: 09/02/2017 Tertiary NOT GIVENUNK Saw Insurance:SELF PAY [facility] Number: Effective Repository Date:2017-09-02 08/24/2017 HUNTER H Primary Insurance:SELF NOT GIVENUNK Tuckerman HENDRICKSON Jr.416 PAY [facility] MARKET Number: Effective [facility], Date:2017-08-03 [place]ository [place] [address]Rqo: (HP) 08/19/2017 HUNTER Ortiz Primary Insurance:SELF NOT GIVENUNK Saw HENDRICKSON Jr.416 PAY [facility] MARKET Number: Effective [facility], Date:2017-07-26 [place]ository [place] [address]Hcl: (HP) 07/28/2017 HUNTER H Primary HUNTER HENDRICKSON JrDOB: Insurance:MedicarePolrene HENDRICKSON JrDOB: [facility] N cy Number: Effective [id number] System MARKET Date:2016-02-26 MARKET Repository [facility] [id number] Name:CD:[id number] [address]Hzq: [id number] [address]Tel: [phone]: [phone]) (HP) [phone] (HP) (WP) 07/28/2017 Secondary HUNTER Montgomery Insurance:HUMANAPolicy HENDRICKSON DOB: [facility] Number: Effective [id number] System Date:2016-02-26 MARKET Repository 4981-78-93Wtmj[address], Name:CD:[id number] [address] [address]Xqy: [phone]: [phone] (HP) (WP) 07/27/2017 HUNTER H Primary HUNTER HENDRICKSON JrDOB: Insurance:MedicarePolrene HENDRICKSON JrDOB: [facility] N cy Number: Effective [id number] System MARKET Date:2017-07-27 MARKET Repository [facility] 3048-48-39Tcln[address] Name:CD:[id number] [address]Esu: [id number], [place] [address]Zxa: [phone]: [phone]) (HP) [phone] (HP) (WP) 07/27/2017 Secondary HUNTER H Yarsanism Insurance:HUMANAmerica HENDRICKSON JrDOB: [facility] Health Number: Effective [id number] System Date:2017-07-27 MARKET Repository [address] [place] [address], Name:CD:[id number] [address]1221Tel: [phone]: [phone] (HP) (WP) 07/27/2017 HUNTER H Primary HUNTER H Yarsanism MADHAVI CampB: Insurance:MedicareOrenrene MADHAVI CampB: [facility] N cy Number: Effective [id number] System MARKET Date:2017-07-27 MARKET Repository [address] Name:CD:[id number] [address]1221Tel: [id number] [place] [address]Tel: [phone]: [phone]) (HP) [phone] (HP) (WP) 07/27/2017 Secondary HUNTER H Yarsanism Insurance:HUMANAPolswapnil HENDRICKSON JrDOB: [facility] Number: Effective [id number] System Date:2017-07-27 MARKET Repository [address] [place] [address], Name:CD:[id number] [address] [address]Qlo: [phone]: [phone] (HP) (WP) 07/27/2017 HUNTER H Primary HUNTER H Nikhil HENDRICKSON DOB: Insurance:MedicarePolrene HENDRICKSON DOB: [facility] N cy Number: Effective [id number] System MARKET Date:2017-07-27 MARKET Repository [facility] 6575-21-73Pjaa[address] Name:CD:[id number] [place] [id number]: [id number] [place] [id number]: [phone]: [phone]) (HP) [phone] (HP) (WP) 07/27/2017 Secondary HUNTER H Yarsanism Insurance:HUMANAPolicy MADHAVI OrellanaDOB: [facility] Health Number: Effective [id number] System Date:2017-07-27 MARKET Repository 6339-00-27[facility], Name:CD:[id number] [address] [address]Dmc: [phone]: [phone] (HP) (WP) 07/22/2017 HUNTER H Primary HUNTER H Tuckerman MADHAVI Jr.416 Insurance:MEDICARE MADHAVI Orellana.: Community N MARKET PART A BPolicy Number: [id number] Regional Hospital South [id number] [place] [address]Syf: Date:2017-07-21 (HP) 07/22/2017 Secondary HUNTER H Tuckerman Insurance:HUMANA MADHAVI Orellana.: [facility] [id number] Hospital Number: Repository [id number] Date:2331-78-91TL [address] [place] [address]AC: 07/22/2017 Tertiary NOT GIVENUNK Tuckerman Insurance:SELF PAY [facility] Number: Effective Repository Date:2017-07-21 07/20/2017 HUNTER H Primary HUNTER H Saw HENDRICKSON Jr.416 Insurance:MEDICARE MADHAVI Jr.: [facility] N MARKET PART A BPolicy Number: [id number] Regional Hospital South [id number] Repository [place] [address]Cia: Date:2017-04-22 (HP) 07/20/2017 Secondary HUNTER H Tuckerman Insurance:HUMANA MADHAVI Lloyd: [facility] [id number] Hospital Number: Repository [id number] Date:7454-50-37EQ [address] [place] [address]IH: 07/20/2017 Tertiary NOT GIVENUNK Tuckerman Insurance:SELF PAY [facility] Hospital Number: Effective Repository Date:2017-07-16 07/05/2017 HUNTER H Primary Insurance:1500 HUNTER H Yarsanism HENDRICKSON JrDOB: MEDICARE [facility] MADHAVI OrellanaDOB: [facility] N Number: Effective [id number] System MARKET Date:2017-05-24 - N MARKET Repository [facility] 3308-84-93MyyfEnnice, [place] Name:CD:[id number] [place] [id number]: [address] [place], [place] [address]Tel: [phone]: [phone] (HP) [phone] (HP) (WP) 07/05/2017 Secondary HUNTER Angel [place] Insurance:1500 MADHAVI OrellanaDOB: [facility] Number: [id number] System Effective N MARKET Repository Date:2017-05-24 - [facility] 0564-27-97Cvmu [place] Name:CD:[id number] [address]Lzp: [address] [place] [address]WP: [phone] (HP) [phone] (WP) 06/25/2017 HUNTER H Primary HUNTER H Saw MADHAVI Lloyd416 Insurance:MEDICARE MADHAVI Lloyd: [facility] N MARKET PART A BPolicy Number: [id number] Regional Hospital South [id number] [place]ository [place] [address]Dln: Date:2017-06-14 () 06/25/2017 Secondary HUNTER H Tuckerman Insurance:HUMANA HENDRICKSON Jr.: [facility] [id number] Hospital Number: Repository [id number] Date:6246-45-94YL [address] [place] [address]KI: 06/25/2017 Tertiary NOT GIVENUNK Saw Insurance:SELF PAY [facility] Number: Effective Repository Date:2017-06-23 06/25/2017 HUNTER H Primary HUNTER H Tuckerman HENDRICKSON Jr.416 Insurance:MEDICARE HENDRICKSON Jr.: Community N MARKET PART A olicy Number: [id number] Regional Hospital South [id number] [place] [address]Ouq: Date:2017-06-14 () 06/25/2017 Secondary HUNTER H Tuckerman Insurance:HUMANA HENDIRCKSON Jr.: [facility] [id number] Hospital Number: Repository [id number] Date:7473-29-51HF[address] [address]GO: 06/25/2017 Tertiary NOT GIVENUNK Tuckerman Insurance:SELF PAY [facility] Number: Effective Repository Date:2017-06-25 06/22/2017 HUNTER H Primary HUNTER H Saw HENDRICKSON Jr.416 Insurance:MEDICARE HENDRICKSON Jr.: Community N MARKET PART A BPolicy Number: [id number] Regional Hospital South [id number] Repository [place] [address]Qvd: Date:2017-06-22 () 06/22/2017 Secondary HUNTER H Tuckerman Insurance:HUMANA HENDRICKSON Jr.: [facility] [id number] Hospital Number: Repository [id number] Date:9838-63-11UE [address] [address]MZ: 06/22/2017 Tertiary NOT GIVENUNK Tuckerman Insurance:SELF PAY [facility] Number: Effective Repository Date:2017-06-22 06/19/2017 HUNTER H Primary HUNTER H Saw HENDRICKSON Jr.416 Insurance:MEDICARE HENDRICKSON Jr.: Community N MARKET PART A BPolicy Number: [id number] Regional Hospital South [id number] Repository [place] [address]Rmv: Date:2017-06-19 () 06/19/2017 Secondary HUNTER H Saw Insurance:HUMANA HENDRICKSON Jr.: [facility] [id number] Hospital Number: Repository [id number] Date:0658-88-47FC [address] [place] [address]YH: 06/19/2017 Tertiary NOT GIVENUNK Saw Insurance:SELF PAY [facility] Number: Effective Repository Date:2017-06-19 06/18/2017 HUNTER H Primary HUNTER H Saw HENDRICKSON Jr.416 Insurance:MEDICARE HENDRICKSON Jr.: [facility] N MARKET PART A BPolicy Number: [id number] Regional Hospital South [id number] [place]ository [place] [address]Szk: Date:2017-06-18 () 06/18/2017 Secondary HUNTER H Tuckerman Insurance:HUMANA HENDRICKSON Jr.: [facility] [id number] Hospital Number: Repository [id number] Date:8836-08-20FL [address] [place] [address]NN: 06/18/2017 Tertiary NOT GIVENUNK Saw Insurance:SELF PAY [facility] Number: Effective Repository Date:2017-06-18 06/08/2017 HUNTER H Primary HUNTER H Tuckerman HENDRICKSON Jr.416 Insurance:MEDICARE HENDRICKSON Jr.: Community N MARKET PART A BPolicy Number: [id number] Regional Hospital South [id number] Repository [place] [address]Pgf: Date:2017-06-08 () 06/08/2017 Secondary HUNTER H Saw Insurance:HUMANA HENDRICKSON Jr.: [facility] [id number] Hospital Number: Repository [id number] Date:3334-19-27AD [address] [place] [address]AY: 06/08/2017 Tertiary NOT GIVENUNK Saw Insurance:SELF PAY [facility] Hospital Number: Effective Repository Date:2017-06-08 05/26/2017 HUNTER H Primary HUNTER H Tuckerman HENDRICKSON JrMert416 Insurance:MEDICARE MADHAVI Jr.: Community N MARKET PART A BPolicy Number: [id number] Hospital, [id number] [place] [address]Yrc: Date:2017-03-27 () 05/26/2017 Secondary HUNTER H Tuckerman Insurance:HUMANA HENDRICKSON .: [facility] [id number] Hospital Number: Repository [id number] Date:9541-47-17AR [address] [address]JW: 05/26/2017 Tertiary NOT GIVENUNK Tuckerman Insurance:SELF PAY [facility] Hospital Number: Effective Repository Date:2017-03-27 05/24/2017 HUNTER H Primary Insurance:1500 HUNTER H Yarsanism MADHAVI OrellanaDOB: MEDICARE PRIMARYPolicy HENDRICKSON DOB: [facility] [id number] N Number: Effective [id number] System MARKET Date:2017-05-04 MARKET Repository [facility] 1737-47-86BqdmEnnice, [place] Name:CD:[id number] [facility] [address]Emq: [address]GYDHZQXYB, [place] [address]Trz: [phone]: [phone] (AF) [phone] (HP) (WP) 05/24/2017 Secondary HUNTER H Yarsanism Insurance:1500 HENDRICKSON [facility]: [facility] Number: [id number] System Effective N MARKET Repository Date:2017-05-04 - [facility] 6284-39-85Lhiv [place] Name:CD:[id number] [address]Iap: [address] [place] [address]WP: (800) (HP) [phone] (WP) 05/14/2017 HUNTER H Primary HUNTER H Yarsanism MADHAVI OrellanaDOB: Insurance:MedicarePoli MDAHAVI OrellanaDOB: [facility] cy Number: Effective [id number] System MARKET Date:2017-05-04 MARKET Repository [facility] 3406-15-76Mwpv[address] [place] [address] Name:CD:[id number] [place] [id number]: [id number], [place] [address]Ejy: [phone]: [phone]) (HP) [phone] (HP) (WP) 05/14/2017 Secondary HUNTER H Yarsanism Insurance:HUMANAPolicy MADHAVI OrellanaDOB: [facility] Number: Effective [id number] System Date:2017-05-04 N MARKET Repository 8554-55-49Hjaf[address] [place] [address], Name:CD:[id number] [address] [address]Ukm: [phone]: [phone] (HP) (WP) 05/11/2017 HUNTER H Primary HUNTER H Tuckerman MADHAVI Lloyd416 Insurance:MEDICARE MADHAVI Lloyd: [facility] N MARKET PART A BPolicy Number: [id number] Hospital, [id number] Repository [place] [address]Rwn: Date:2017-05-11 (HP) 05/11/2017 Secondary HUNTER H Saw Insurance:HUMANA MADHAVI Lloyd: Community [facility]CIALPol[facility] [id number] Hospital Number: Repository [id number] Date:4119-39-61SR [address] [place] [address]FT: 05/11/2017 Tertiary NOT GIVENUNK Tuckerman Insurance:SELF PAY [facility] Hospital Number: Effective Repository Date:2017-05-11 05/03/2017 HUNTER H Primary Insurance:1500 HUNTER H Yarsanism HENDRICKSON JrDOB: MEDICARE PRIMARYPolicy HENDRICKSON JrDOB: [facility] N Number: Effective [id number] System MARKET Date:2017-05-03 MARKET Repository [facility] 9936-98-65Skmf [place], [place] Name:CD:[id number] [facility] [address]Iwr: [address] [place] [address]Unk: [address]SZ: [phone] (HP) [phone] (HP) (WP) 05/03/2017 Secondary HUNTER H Yarsanism Insurance:1500 MADHAVI OrellanaDOB: [facility] Number: [id number] System Effective N MARKET Repository Date:2017-05-03 - [facility] 1578-80-51Cbej [place] Name:CD:[id number] [address]Vao: [address] [place] [address]WP: (800) (HP) [phone] (WP) 04/22/2017 HUNTER H Primary HUNTER H Tuckerman MADHAVI Lloyd416 Insurance:MEDICARE MADHAVI Lloyd: Community N MARKET PART A BPolicy Number: [id number] [facility], [id number] [place]ository [place] [address]Uqf: Date:2017-04-22 (HP) 04/22/2017 Secondary HUNTER H Tuckerman Insurance:HUMANA MADHAVI Lloyd: Community COMMERCIALPoly [id number] Hospital Number: Repository [id number] Date:4470-44-60VV [address] [place] [address]SW: 04/22/2017 Tertiary NOT GIVENUNK Saw Insurance:SELF PAY [facility] Number: Effective Repository Date:2017-04-22 04/22/2017 HUNTER H Primary HUNTER H Tuckerman MADHAVI Lloyd416 Insurance:MEDICARE MADHAVI Lloyd: [facility] N MARKET PART A BPolicy Number: [id number] Hospital, [id number] Repository [place] [address]Jmj: Date:2017-04-22 () 04/22/2017 Secondary HUNTER H Tuckerman Insurance:HUMANA MADHAVI Lloyd: [facility] [id number] Hospital Number: Repository [id number] Date:7911-34-81EP [address] [place] [address]VF: 04/22/2017 Tertiary NOT GIVENUNK Tuckerman Insurance:SELF PAY [facility] Number: Effective Repository Date:2017-04-22 SOCIAL HISTORY SOCIAL HISTORY No Social History Records FoundFAMILY HISTORY FAMILY HISTORY No Family History Records FoundPREGNANCY No Status Records FoundADVANCE DIRECTIVES ADVANCE DIRECTIVES No Advanced Directives Records FoundINFORMATION SOURCE INFORMATION SOURCE DATE CREATED AUTHOR AUTHOR'S ORGANIZATION 04/06/2018 [facility]
== END 2018-03-22 18:35 | disposition skilled nursing facility (03) | DRG 552 ==
LOC: ED 16:49 → MS3 17:04
PROVIDERS: Family Medicine; Emergency Provider Emergency Medicine; Family Provider Internal Medicine; PCP Internal Medicine; Visit Provider Internal Medicine
DX: M47.892 Other spondylosis, cervical region (principal); I50.30 Unspecified diastolic (congestive) heart failure; J98.11 Atelectasis; R51 Headache; M50.30 Other cervical disc degeneration, unspecified cervical region; N40.1 Benign prostatic hyperplasia with lower urinary tract symptoms; R33.8 Other retention of urine; M15.9 Polyosteoarthritis, unspecified; G47.33 Obstructive sleep apnea (adult) (pediatric); J44.9 Chronic obstructive pulmonary disease, unspecified; F17.210 Nicotine dependence, cigarettes, uncomplicated; I11.0 Hypertensive heart disease with heart failure; E78.5 Hyperlipidemia, unspecified; I48.91 Unspecified atrial fibrillation; F03.90 Unspecified dementia, unspecified severity, without behavioral disturbance, psychotic disturbance, mood disturbance, and anxiety; F32.9 Major depressive disorder, single episode, unspecified; K21.9 Gastro-esophageal reflux disease without esophagitis; I25.10 Atherosclerotic heart disease of native coronary artery without angina pectoris; I73.9 Peripheral vascular disease, unspecified; Z79.02 Long term (current) use of antithrombotics/antiplatelets; Z95.0 Presence of cardiac pacemaker; Z79.899 Other long term (current) drug therapy; Z79.82 Long term (current) use of aspirin; Z95.5 Presence of coronary angioplasty implant and graft; Z79.01 Long term (current) use of anticoagulants
CPT/HCPCS: 36415; 62270; 70450; 71045; 71046; 72125; 77003; 80048; 80202; 81001; 84157; 85025; 85610; 85652; 86140; 87070; 87205; 87498; 87529; 87798; 87804; 87880; 89050; 89051; 94640; 97110; 97116; 97162; 97166; 97530; 97802; 99285; 99406; J7030; J7040; J7050; A4216; J0696

== ENCOUNTER 2018-03-22 19:44 | Inpatient (IN) | payer MEDICARE, OTHER, SELFPAY ==
[2018-03-16 18:59] VITALS: BMI 25.1
--- NOTE | 2018-03-22 19:54 | NURSING ---
Pt arrived via bed from med surg at 193
[2018-03-22 20:16] VITALS: BP 122/74; PULSE 91; RESP 18; TEMP 36.8; O2SAT 94
[2018-03-22 20:21] VITALS: BMI 25.4
--- NOTE | 2018-03-22 20:21 | PCM.HP.STD ---
Problem List (1) Headache Status: Acute (2) Neck pain Status: Acute (3) Shoulder pain Status: Acute (4) BPH (benign prostatic hyperplasia) Status: Chronic (5) Depression Status: Chronic (6) Peripheral arterial occlusive disease Status: Chronic (7) Alzheimer's disease Status: Chronic (8) Neuropathic pain Status: Chronic (9) CHF (congestive heart failure) Status: Chronic Qualifiers: Comment: diastolic (10) COPD (chronic obstructive pulmonary disease) Status: Chronic Qualifiers: (11) Pulmonary hypertension Status: Chronic (12) ARLENE (obstructive sleep apnea) Status: Chronic (13) SSS (sick sinus syndrome) Status: Chronic (14) HLD (hyperlipidemia) Status: Chronic Qualifiers: (15) Coronary artery disease Status: Chronic Qualifiers: Comment: S/P LAD and LCx stenting (16) HTN (hypertension) Status: Chronic Qualifiers: (17) Atrial fibrillation Status: Chronic Qualifiers: (18) GERD (gastroesophageal reflux disease) Status: Chronic (19) Personality disorder Status: Chronic History of Present Illness Date of Admission: 03/22/18 Chief Complaint: Here for rehabilitation, strengthening, prior to discharge home with spouse. The patient is a 77 year old Male with below past medical history presented to [facility] Emergency Department 03/16/2018 with back pain. For 2-3 days, gradual, head, neck, shoulders, trapezius. Labs okay. Chest X-ray right base atelectasis versus infiltrate, pneumonia doubtful. Morphine given for pain. Unable to perform LP immediately due to patient on Xarelto. 03/16/2018 Admit to Hospital. Vancomycin, Rocephin, Aztreonam for meningitis coverage. Narcotics, Flexeril, for neck pain. Hold Xarelto in preparation for LP. 03/18/2018 LP performed under fluoroscopic guidance. 03/19/2018 Suicidal Ideation, but only joking. If CSF cultures negative, stop all antibiotics. CSF cultures negative, all antibiotics stopped. Prednisone, narcotics, PT/OT for headache. Indwelling Rankin catheter for urinary retention. Of note, patient recently in [facility] facility and signed himself out prior to finishing therapy. Spouse unable to care for him at home. Patient agreed to PT/OT. 03/22/2018 Admit to TCU with debility, here for rehabilitation, strengthening, prior to disposition determination. 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) Paroxysmal atrial fibrillation (Chronic) BPH (benign prostatic hyperplasia) (Chronic) Depression (Chronic) Peripheral arterial occlusive disease (Chronic) Alzheimer's disease (Chronic) Neuropathic pain (Chronic) CHF (congestive heart failure) (Chronic) diastolic COPD (chronic obstructive pulmonary disease) (Chronic) Pulmonary hypertension (Chronic) Tobacco abuse (Chronic) AAA (abdominal aortic aneurysm) (Chronic) PVD (peripheral vascular disease) (Chronic) Long-term use of high-risk medication (Chronic) Stage 2 moderate COPD by GOLD classification (Chronic) Malaise and fatigue (Chronic) ARLENE (obstructive sleep apnea) (Chronic) Central sleep apnea (Chronic) S/P PTCA (percutaneous transluminal coronary angioplasty) (Chronic) Cardiomyopathy (Chronic) SSS (sick sinus syndrome) (Chronic) Autonomic dysfunction (Chronic) HLD (hyperlipidemia) (Chronic) PAD (peripheral artery disease) (Chronic) Community acquired pneumonia (Chronic) Coronary artery disease (Chronic) S/P LAD and LCx stenting BPH (benign prostatic hypertrophy) with urinary obstruction (Chronic) Depressive disorder (Chronic) HTN (hypertension) (Chronic) Atrial fibrillation (Chronic) GERD (gastroesophageal reflux disease) (Chronic) History of orchiectomy, unilateral (Chronic) Pacemaker (Chronic) Nephrolithiasis (Chronic) Personality disorder (Chronic) Medical History: Medical History (Last Updated 03/21/18 @ 18:31 by Modesto Mclaughlin DO) Fever (Resolved) R50.9 CHF (congestive heart failure) (Chronic) I50.9 diastolic COPD (chronic obstructive pulmonary disease) (Chronic) J44.9 Pulmonary hypertension (Chronic) I27.20 Intractable low back pain (Resolved) M54.5 Shortness of breath (Resolved) R06.02 Aspiration pneumonia (Resolved) J69.0 Tobacco abuse (Chronic) Z72.0 AAA (abdominal aortic aneurysm) (Chronic) I71.4 PVD (peripheral vascular disease) (Chronic) I73.9 Palpitations (Resolved) R00.2 Long-term use of high-risk medication (Chronic) Z79.899 Dizziness and giddiness (Resolved) R42 Syncope (Resolved) R55 Cough (Resolved) R05 Dyspnea (Resolved) R06.00 Bronchitis (Resolved) J40 Stage 2 moderate COPD by GOLD classification (Chronic) J44.9 Acute respiratory failure with hypoxia (Resolved) J96.01 Malaise and fatigue (Chronic) R53.81, R53.83 ARLENE (obstructive sleep apnea) (Chronic) G47.33 Central sleep apnea (Chronic) G47.31 Respiratory failure with hypoxia (Resolved) J96.91 Unstable angina (Resolved) Chest pain (Resolved) R07.9 Cardiomyopathy (Chronic) I42.9 SSS (sick sinus syndrome) (Chronic) I49.5 Autonomic dysfunction (Chronic) G90.9 HLD (hyperlipidemia) (Chronic) E78.5 PAD (peripheral artery disease) (Chronic) I73.9 Acute kidney injury (Resolved) N17.9 Sepsis (Resolved) A41.9 Community acquired pneumonia (Chronic) J18.9 Coronary artery disease (Chronic) I25.10 S/P LAD and LCx stenting BPH (benign prostatic hypertrophy) with urinary obstruction (Chronic) N40.1, N13.8 Depressive disorder (Chronic) F32.9 HTN (hypertension) (Chronic) I10 Atrial fibrillation (Chronic) I48.91 GERD (gastroesophageal reflux disease) (Chronic) K21.9 Pacemaker (Chronic) Z95.0 Nephrolithiasis (Chronic) Personality disorder (Chronic) F60.9 Allergies lactose Allergy (Severe, Verified 03/16/18 11:21) unknown Penicillins Allergy (Severe, Verified 03/16/18 11:21) Anaphylaxis adhesive Allergy (Verified 03/16/18 11:21) Rash Sulfa (Sulfonamide Antibiotics) Allergy (Verified 03/16/18 11:21) Unknown diazepam [From Valium] Adverse Reaction (Verified 03/16/18 11:21) hyper opposite effect desired HYPER OPPOSITE EFFECT DESIRED niacin [From Niaspan Extended-Release] Adverse Reaction (Verified 03/16/18 11:21) low bp LOW BP simvastatin Adverse Reaction (Verified 03/16/18 11:21) Pain in joints Home Medications: Ambulatory Orders Medication Instructions Recorded Cholecalciferol (Vitamin D3) 1 tab PO DAILY 06/18/17 [Vitamin D3] Cyanocobalamin [Vitamin B12] 1 tab PO DAILY 06/18/17 Melatonin 10 mg PO QHS 06/18/17 Omeprazole 20 mg PO DAILY 06/18/17 Vit A/Vit C/Vit E/Zinc/Copper 1 cap PO BID 06/18/17 [Preservision Areds Softgel] Aspirin 81 mg PO DAILY 01/22/18 Duloxetine HCl 60 mg PO DAILY 03/16/18 Acetaminophen [Tylenol Tablet] 650 mg PO Q6H PRN PRN tablet 03/22/18 Donepezil HCl [Aricept] 10 mg PO QHS 03/22/18 Finasteride [Proscar] 5 mg PO DAILY 03/22/18 Oxycodone [Oxyir] 5 mg PO Q4H PRN PRN 7 Days #30 tab 03/22/18 Prednisone [Deltasone] 20 mg PO UD 03/22/18 Pregabalin [Lyrica] 300 mg PO QHS 03/22/18 Rivaroxaban [Xarelto] 15 mg PO QPM 03/22/18 Tamsulosin HCl [Flomax] 0.4 mg PO DAILY@1730 03/22/18 Surgical History: Surgical History (Last Reviewed 03/16/18 @ 17:27 by Olvin Chopra DO) S/P TURP (status post transurethral resection of prostate) (Resolved) Z90.79 pacemaker implantation (Resolved) generator change History of inguinal hernia repair (Resolved) Z98.890, Z87.19 History of hemorrhoidectomy (Resolved) Z98.890 History of prostatectomy (Resolved) Z98.890, Z90.79 right ochiectomy (Resolved) History of appendectomy (Resolved) Z98.890, Z90.49 S/P PTCA (percutaneous transluminal coronary angioplasty) (Chronic) Z98.61 History of orchiectomy, unilateral (Chronic) Z90.79 Surgical History: angioplasty, appendectomy, cholecystectomy, herniorrhaphy, pacemaker implantation, TURP, - - Prostatectomy. Psychiatric History: Depression, - - Personality disorder. Lives: Spouse/ Significant Other Smoking Status: Current every day smoker Tobacco Use: Cigarettes Alcohol: None Drugs: None - *Family History Paternal Family History: Family History (Last Reviewed 03/16/18 @ 17:27 by Olvin Chopra DO) Father CAD (coronary artery disease) Mother Breast cancer Arthritis CAD (coronary artery disease) Hypertension Sister CVA (cerebral vascular accident) Diabetes Hypertension Son CAD (coronary artery disease) Hypertension History Items: Heart Disease, Renal Disease Sibling Family History: Family History (Last Reviewed 03/16/18 @ 17:27 by Olvin Chopra DO) Father CAD (coronary artery disease) Mother Breast cancer Arthritis CAD (coronary artery disease) Hypertension Sister CVA (cerebral vascular accident) Diabetes Hypertension Son CAD (coronary artery disease) Hypertension History Items: Diabetes, Heart Disease Offspring Family History: Family History (Last Reviewed 03/16/18 @ 17:27 by Olvin Chopra DO) Father CAD (coronary artery disease) Mother Breast cancer Arthritis CAD (coronary artery disease) Hypertension Sister CVA (cerebral vascular accident) Diabetes Hypertension Son CAD (coronary artery disease) Hypertension History Items: Heart Disease Maternal Family History: Family History (Last Reviewed 03/16/18 @ 17:27 by Olvin Chopra DO) Father CAD (coronary artery disease) Mother Breast cancer Arthritis CAD (coronary artery disease) Hypertension Sister CVA (cerebral vascular accident) Diabetes Hypertension Son CAD (coronary artery disease) Hypertension History Items: Cancer, Heart Disease Review of Systems Constitutional: Denies: Chills, Fever, Weight Change HEENT: Denies: Head Aches, Sinus Congestion, Sinus Drainage Cardiovascular: Denies: Chest Pain, Palpitations Respiratory: Denies: Cough, Shortness of breath at rest, Sputum production Gastrointestinal: Denies: Abdominal Pain, Nausea, Vomiting Genitourinary: Denies: Dysuria Musculoskeletal: Denies: Joint Pain, Joint Tenderness Skin: Denies: Rash, Wounds Neurological: Denies: Numbness, Tingling, Focal weakness Psychiatric: Denies: Anxiety, Depression, Homicidal Ideations, Suicidal Ideations Hematologic/ Lymphatic: Denies: Easy Bruising, Easy Bleeding VTE Information - Inpt Only VTE Present on Admission: No VTE Mechan Device Prophylaxis: Knee High NICK Hose VTE Pharm Prophylaxis ordered?: No Reason prophylaxis not ordered:: Treatment Not Indicated Patient Problems: Active and Suspected Problems (Last Updated 03/21/18 @ 18:31 by Modesto Mclaughlin DO) Headache (Acute) Neck pain (Acute) Shoulder pain (Acute) - Physical Exam General: Alert, Oriented x3, Cooperative HEENT: Atraumatic, PERRLA, EOMI, Normocephalic Neck: Supple, No JVD, Negative Carotid Bruits Lungs: Clear to auscultation, Normal air movement Cardiovascular: Regular rate, No murmurs Abdomen: Bowel Sounds Present, Soft, Non Tender, - - Indwelling Rankin Catheter. Extremities: No edema, Capillary Refill Less than 3 Seconds Skin: No rashes, No breakdown Musculoskeletal: No Tenderness to Palpation of Joints or Extremities Neurological: Cranial nerves II-XII grossly intact Psych/Mental Status: Normal Affect, Appropriate Body Mass Index (BMI) 25.1 Assessment/Plan All Active Problems (Last Updated 03/21/18 @ 18:31 by Modesto Mclaughlin DO) Headache (Acute) Neck pain (Acute) Shoulder pain (Acute) Intractable headache (Acute) Neck stiffness (Acute) Fever (Resolved) Intractable low back pain (Resolved) Shortness of breath (Resolved) Aspiration pneumonia (Resolved) S/P TURP (status post transurethral resection of prostate) (Resolved) pacemaker implantation (Resolved) History of inguinal hernia repair (Resolved) History of hemorrhoidectomy (Resolved) History of prostatectomy (Resolved) right ochiectomy (Resolved) History of appendectomy (Resolved) Palpitations (Resolved) Dizziness and giddiness (Resolved) Syncope (Resolved) Cough (Resolved) Dyspnea (Resolved) Bronchitis (Resolved) Acute respiratory failure with hypoxia (Resolved) Respiratory failure with hypoxia (Resolved) Unstable angina (Resolved) Chest pain (Resolved) Acute kidney injury (Resolved) Sepsis (Resolved) 77 year old male with below past medical history hospitalized for intractable headache, ruled out for meningitis, pain controlled with steroids, narcotics, muscle relaxants, admitted to TCU with debility, here for rehabilitation, strengthening, prior to disposition determination. Debility - PT/OT. Pain - Tylenol 1000MG Q6H PRN mild pain, Oxycodone 5MG Q4H PRN moderate to severe pain, Prednisone taper. Bowel - Miralax 17GM daily, Senna/colace 2 tablets BID, Dulcolax 10MG PO daily PRN. Pneumonia vaccination - Administer Prevnar 13 and/or Pneumovax 23 as necessary. DVT prophylaxis - Not necessary, already on Xarelto. Coronary Artery Disease - Aspirin 81MG daily. Vitamin D deficiency - D3 1000IU daily. Vitamin B12 deficiency - B12 500MCG daily. Alzheimer's Disease - Donepezil 10MG QHS. Depression - Duloxetine 60MG daily. BPH/Urinary retention - Tamsulosin 0.4MG daily, Finasteride 5MG daily, indwelling rankin catheter, voiding trials per protocol. Insomnia - Melatonin 10MG QHS. Macular Degeneration - Healthy Eyes 1 tablet BID. GERD - Pantoprazole 20MG daily. Neuropathic pain - Lyrica 300MG QHS. Atrial Fibrillation - Xarelto 15MG daily. Obstructive sleep apnea - CPAP at night.
[2018-03-22 20:26] VITALS: BMI 25.4
--- NOTE | 2018-03-22 20:30 | HP.PCM_ITS ---
Problem List (1) Headache Status: Acute (2) Neck pain Status: Acute (3) Shoulder pain Status: Acute (4) BPH (benign prostatic hyperplasia) Status: Chronic (5) Depression Status: Chronic (6) Peripheral arterial occlusive disease Status: Chronic (7) Alzheimer's disease Status: Chronic (8) Neuropathic pain Status: Chronic (9) CHF (congestive heart failure) Status: Chronic Qualifiers: Comment: diastolic (10) COPD (chronic obstructive pulmonary disease) Status: Chronic Qualifiers: (11) Pulmonary hypertension Status: Chronic (12) ARLENE (obstructive sleep apnea) Status: Chronic (13) SSS (sick sinus syndrome) Status: Chronic (14) HLD (hyperlipidemia) Status: Chronic Qualifiers: (15) Coronary artery disease Status: Chronic Qualifiers: Comment: S/P LAD and LCx stenting (16) HTN (hypertension) Status: Chronic Qualifiers: (17) Atrial fibrillation Status: Chronic Qualifiers: (18) GERD (gastroesophageal reflux disease) Status: Chronic (19) Personality disorder Status: Chronic History of Present Illness Date of Admission: 03/22/18 Chief Complaint: Here for rehabilitation, strengthening, prior to discharge home with spouse. The patient is a 77 year old Male with below past medical history presented to [facility] Emergency Department 03/16/2018 with back pain. For 2-3 days, gradual, head, neck, shoulders, trapezius. Labs okay. Chest X-ray right base atelectasis versus infiltrate, pneumonia doubtful. Morphine given for pain. Unable to perform LP immediately due to patient on Xarelto. 03/16/2018 Admit to Hospital. Vancomycin, Rocephin, Aztreonam for meningitis coverage. Narcotics, Flexeril, for neck pain. Hold Xarelto in preparation for LP. 03/18/2018 LP performed under fluoroscopic guidance. 03/19/2018 Suicidal Ideation, but only joking. If CSF cultures negative, stop all antibiotics. CSF cultures negative, all antibiotics stopped. Prednisone, narcotics, PT/OT for headache. Indwelling Rankin catheter for urinary retention. Of note, patient recently in longterm facility and signed himself out prior to finishing therapy. Spouse unable to care for him at home. Patient agreed to PT/OT. 03/22/2018 Admit to TCU with debility, here for rehabilitation, strengthening, prior to disposition determination. 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) Paroxysmal atrial fibrillation (Chronic) BPH (benign prostatic hyperplasia) (Chronic) Depression (Chronic) Peripheral arterial occlusive disease (Chronic) Alzheimer's disease (Chronic) Neuropathic pain (Chronic) CHF (congestive heart failure) (Chronic) diastolic COPD (chronic obstructive pulmonary disease) (Chronic) Pulmonary hypertension (Chronic) Tobacco abuse (Chronic) AAA (abdominal aortic aneurysm) (Chronic) PVD (peripheral vascular disease) (Chronic) Long-term use of high-risk medication (Chronic) Stage 2 moderate COPD by GOLD classification (Chronic) Malaise and fatigue (Chronic) ARLENE (obstructive sleep apnea) (Chronic) Central sleep apnea (Chronic) S/P PTCA (percutaneous transluminal coronary angioplasty) (Chronic) Cardiomyopathy (Chronic) SSS (sick sinus syndrome) (Chronic) Autonomic dysfunction (Chronic) HLD (hyperlipidemia) (Chronic) PAD (peripheral artery disease) (Chronic) Community acquired pneumonia (Chronic) Coronary artery disease (Chronic) S/P LAD and LCx stenting BPH (benign prostatic hypertrophy) with urinary obstruction (Chronic) Depressive disorder (Chronic) HTN (hypertension) (Chronic) Atrial fibrillation (Chronic) GERD (gastroesophageal reflux disease) (Chronic) History of orchiectomy, unilateral (Chronic) Pacemaker (Chronic) Nephrolithiasis (Chronic) Personality disorder (Chronic) Medical History: Medical History (Last Updated 03/21/18 @ 18:31 by Modesto Mclaughlin DO) Fever (Resolved) R50.9 CHF (congestive heart failure) (Chronic) I50.9 diastolic COPD (chronic obstructive pulmonary disease) (Chronic) J44.9 Pulmonary hypertension (Chronic) I27.20 Intractable low back pain (Resolved) M54.5 Shortness of breath (Resolved) R06.02 Aspiration pneumonia (Resolved) J69.0 Tobacco abuse (Chronic) Z72.0 AAA (abdominal aortic aneurysm) (Chronic) I71.4 PVD (peripheral vascular disease) (Chronic) I73.9 Palpitations (Resolved) R00.2 Long-term use of high-risk medication (Chronic) Z79.899 Dizziness and giddiness (Resolved) R42 Syncope (Resolved) R55 Cough (Resolved) R05 Dyspnea (Resolved) R06.00 Bronchitis (Resolved) J40 Stage 2 moderate COPD by GOLD classification (Chronic) J44.9 Acute respiratory failure with hypoxia (Resolved) J96.01 Malaise and fatigue (Chronic) R53.81, R53.83 ARLENE (obstructive sleep apnea) (Chronic) G47.33 Central sleep apnea (Chronic) G47.31 Respiratory failure with hypoxia (Resolved) J96.91 Unstable angina (Resolved) Chest pain (Resolved) R07.9 Cardiomyopathy (Chronic) I42.9 SSS (sick sinus syndrome) (Chronic) I49.5 Autonomic dysfunction (Chronic) G90.9 HLD (hyperlipidemia) (Chronic) E78.5 PAD (peripheral artery disease) (Chronic) I73.9 Acute kidney injury (Resolved) N17.9 Sepsis (Resolved) A41.9 Community acquired pneumonia (Chronic) J18.9 Coronary artery disease (Chronic) I25.10 S/P LAD and LCx stenting BPH (benign prostatic hypertrophy) with urinary obstruction (Chronic) N40.1, N13.8 Depressive disorder (Chronic) F32.9 HTN (hypertension) (Chronic) I10 Atrial fibrillation (Chronic) I48.91 GERD (gastroesophageal reflux disease) (Chronic) K21.9 Pacemaker (Chronic) Z95.0 Nephrolithiasis (Chronic) Personality disorder (Chronic) F60.9 Allergies lactose Allergy (Severe, Verified 03/16/18 11:21) unknown Penicillins Allergy (Severe, Verified 03/16/18 11:21) Anaphylaxis adhesive Allergy (Verified 03/16/18 11:21) Rash Sulfa (Sulfonamide Antibiotics) Allergy (Verified 03/16/18 11:21) Unknown diazepam [From Valium] Adverse Reaction (Verified 03/16/18 11:21) hyper opposite effect desired HYPER OPPOSITE EFFECT DESIRED niacin [From Niaspan Extended-Release] Adverse Reaction (Verified 03/16/18 11:21) low bp LOW BP simvastatin Adverse Reaction (Verified 03/16/18 11:21) Pain in joints Home Medications: Ambulatory Orders Medication Instructions Recorded Cholecalciferol (Vitamin D3) 1 tab PO DAILY 06/18/17 [Vitamin D3] Cyanocobalamin [Vitamin B12] 1 tab PO DAILY 06/18/17 Melatonin 10 mg PO QHS 06/18/17 Omeprazole 20 mg PO DAILY 06/18/17 Vit A/Vit C/Vit E/Zinc/Copper 1 cap PO BID 06/18/17 [Preservision Areds Softgel] Aspirin 81 mg PO DAILY 01/22/18 Duloxetine HCl 60 mg PO DAILY 03/16/18 Acetaminophen [Tylenol Tablet] 650 mg PO Q6H PRN PRN tablet 03/22/18 Donepezil HCl [Aricept] 10 mg PO QHS 03/22/18 Finasteride [Proscar] 5 mg PO DAILY 03/22/18 Oxycodone [Oxyir] 5 mg PO Q4H PRN PRN 7 Days #30 tab 03/22/18 Prednisone [Deltasone] 20 mg PO UD 03/22/18 Pregabalin [Lyrica] 300 mg PO QHS 03/22/18 Rivaroxaban [Xarelto] 15 mg PO QPM 03/22/18 Tamsulosin HCl [Flomax] 0.4 mg PO DAILY@1730 03/22/18 Surgical History: Surgical History (Last Reviewed 03/16/18 @ 17:27 by Olvin Chopra DO) S/P TURP (status post transurethral resection of prostate) (Resolved) Z90.79 pacemaker implantation (Resolved) generator change History of inguinal hernia repair (Resolved) Z98.890, Z87.19 History of hemorrhoidectomy (Resolved) Z98.890 History of prostatectomy (Resolved) Z98.890, Z90.79 right ochiectomy (Resolved) History of appendectomy (Resolved) Z98.890, Z90.49 S/P PTCA (percutaneous transluminal coronary angioplasty) (Chronic) Z98.61 History of orchiectomy, unilateral (Chronic) Z90.79 Surgical History: angioplasty, appendectomy, cholecystectomy, herniorrhaphy, pacemaker implantation, TURP, - - Prostatectomy. Psychiatric History: Depression, - - Personality disorder. Lives: Spouse/ Significant Other Smoking Status: Current every day smoker Tobacco Use: Cigarettes Alcohol: None Drugs: None - *Family History Paternal Family History: Family History (Last Reviewed 03/16/18 @ 17:27 by Olvin Chopra DO) Father CAD (coronary artery disease) Mother Breast cancer Arthritis CAD (coronary artery disease) Hypertension Sister CVA (cerebral vascular accident) Diabetes Hypertension Son CAD (coronary artery disease) Hypertension History Items: Heart Disease, Renal Disease Sibling Family History: Family History (Last Reviewed 03/16/18 @ 17:27 by Olvin Chopra DO) Father CAD (coronary artery disease) Mother Breast cancer Arthritis CAD (coronary artery disease) Hypertension Sister CVA (cerebral vascular accident) Diabetes Hypertension Son CAD (coronary artery disease) Hypertension History Items: Diabetes, Heart Disease Offspring Family History: Family History (Last Reviewed 03/16/18 @ 17:27 by Olvin Chopra DO) Father CAD (coronary artery disease) Mother Breast cancer Arthritis CAD (coronary artery disease) Hypertension Sister CVA (cerebral vascular accident) Diabetes Hypertension Son CAD (coronary artery disease) Hypertension History Items: Heart Disease Maternal Family History: Family History (Last Reviewed 03/16/18 @ 17:27 by Olvin Chopra DO) Father CAD (coronary artery disease) Mother Breast cancer Arthritis CAD (coronary artery disease) Hypertension Sister CVA (cerebral vascular accident) Diabetes Hypertension Son CAD (coronary artery disease) Hypertension History Items: Cancer, Heart Disease Review of Systems Constitutional: Denies: Chills, Fever, Weight Change HEENT: Denies: Head Aches, Sinus Congestion, Sinus Drainage Cardiovascular: Denies: Chest Pain, Palpitations Respiratory: Denies: Cough, Shortness of breath at rest, Sputum production Gastrointestinal: Denies: Abdominal Pain, Nausea, Vomiting Genitourinary: Denies: Dysuria Musculoskeletal: Denies: Joint Pain, Joint Tenderness Skin: Denies: Rash, Wounds Neurological: Denies: Numbness, Tingling, Focal weakness Psychiatric: Denies: Anxiety, Depression, Homicidal Ideations, Suicidal Ideations Hematologic/ Lymphatic: Denies: Easy Bruising, Easy Bleeding VTE Information - Inpt Only VTE Present on Admission: No VTE Mechan Device Prophylaxis: Knee High NICK Hose VTE Pharm Prophylaxis ordered?: No Reason prophylaxis not ordered:: Treatment Not Indicated Patient Problems: Active and Suspected Problems (Last Updated 03/21/18 @ 18:31 by Modesto Mclaughlin DO) Headache (Acute) Neck pain (Acute) Shoulder pain (Acute) - Physical Exam General: Alert, Oriented x3, Cooperative HEENT: Atraumatic, PERRLA, EOMI, Normocephalic Neck: Supple, No JVD, Negative Carotid Bruits Lungs: Clear to auscultation, Normal air movement Cardiovascular: Regular rate, No murmurs Abdomen: Bowel Sounds Present, Soft, Non Tender, - - Indwelling Rankin Catheter. Extremities: No edema, Capillary Refill Less than 3 Seconds Skin: No rashes, No breakdown Musculoskeletal: No Tenderness to Palpation of Joints or Extremities Neurological: Cranial nerves II-XII grossly intact Psych/Mental Status: Normal Affect, Appropriate Body Mass Index (BMI) 25.1 Assessment/Plan All Active Problems (Last Updated 03/21/18 @ 18:31 by Modesto Mclaughlin DO) Headache (Acute) Neck pain (Acute) Shoulder pain (Acute) Intractable headache (Acute) Neck stiffness (Acute) Fever (Resolved) Intractable low back pain (Resolved) Shortness of breath (Resolved) Aspiration pneumonia (Resolved) S/P TURP (status post transurethral resection of prostate) (Resolved) pacemaker implantation (Resolved) History of inguinal hernia repair (Resolved) History of hemorrhoidectomy (Resolved) History of prostatectomy (Resolved) right ochiectomy (Resolved) History of appendectomy (Resolved) Palpitations (Resolved) Dizziness and giddiness (Resolved) Syncope (Resolved) Cough (Resolved) Dyspnea (Resolved) Bronchitis (Resolved) Acute respiratory failure with hypoxia (Resolved) Respiratory failure with hypoxia (Resolved) Unstable angina (Resolved) Chest pain (Resolved) Acute kidney injury (Resolved) Sepsis (Resolved) 77 year old male with below past medical history hospitalized for intractable headache, ruled out for meningitis, pain controlled with steroids, narcotics, muscle relaxants, admitted to TCU with debility, here for rehabilitation, strengthening, prior to disposition determination. * Debility - PT/OT. * Pain - Tylenol 1000MG Q6H PRN mild pain, Oxycodone 5MG Q4H PRN moderate to severe pain, Prednisone taper. * Bowel - Miralax 17GM daily, Senna/colace 2 tablets BID, Dulcolax 10MG PO daily PRN. * Pneumonia vaccination - Administer Prevnar 13 and/or Pneumovax 23 as necessary. * DVT prophylaxis - Not necessary, already on Xarelto. * Coronary Artery Disease - Aspirin 81MG daily. * Vitamin D deficiency - D3 1000IU daily. * Vitamin B12 deficiency - B12 500MCG daily. * Alzheimer's Disease - Donepezil 10MG QHS. * Depression - Duloxetine 60MG daily. * BPH/Urinary retention - Tamsulosin 0.4MG daily, Finasteride 5MG daily, indwelling rankin catheter, voiding trials per protocol. * Insomnia - Melatonin 10MG QHS. * Macular Degeneration - Healthy Eyes 1 tablet BID. * GERD - Pantoprazole 20MG daily. * Neuropathic pain - Lyrica 300MG QHS. * Atrial Fibrillation - Xarelto 15MG daily. * Obstructive sleep apnea - CPAP at night.
[2018-03-22 20:35] VITALS: PULSE 77
[2018-03-22] MEDS: MELATONIN 10 MG TABLET PO (21:42)
[2018-03-22] MEDS: Donepezil HCl 10 MG Tablet PO (21:42)
[2018-03-22] MEDS: Pregabalin 75 MG Capsule 300 MG PO (21:42)
[2018-03-23 06:02] LABS: Absolute Neutrophil Count 7.9 X10^3/uL (2.0-7.7); Hematocrit 29.6 % (40-54); Hemoglobin 9.4 g/dl (13.0-16.5); Lymphocyte % 13.1 % (19-41); Mean Corp Hgb Conc 31.8 g/gl (32-36); Mean Corpuscular Hgb 27.7 pg (27.0-32.0); Mean Corpuscular Volume 87.3 fL (80-94); Mean Platelet Vol. 10.7 fl (6.2-12.0); Monocyte# 0.73 X10^3/uL; Monocyte% 7.4 % (0-10); Neutrophil # 7.87 X10^3/uL (2.7-7.7); Neutrophil % 79.2 % (47-70); Platelet Count 269 K/mm3 (150-450); RBC Distribution Width CV 17.8 % (11.6-14.6); RBC Distribution Width SD 55.8 fl (35.1-43.9); Red Blood Count 3.39 M/mm3 (4.6-6.2); White Blood Count 9.9 K/mm3 (4.4-11.0)
[2018-03-23] MEDS: Pantoprazole Sodium 20 MG Tablet PO (06:06)
[2018-03-23] MEDS: DULoxetine Hcl 60 MG Capsule PO (06:06)
[2018-03-23] MEDS: Nystatin Powder 15gm Bottle 1 APPLIC TOPICAL ×2 (06:06→21:14)
[2018-03-23] MEDS: Menthol/Lanolin/Calamine/Znox 113 GM Tube 1 APPLIC TOPICAL ×2 (06:06→21:14)
[2018-03-23] MEDS: Finasteride 5 MG Tablet PO (06:09)
[2018-03-23 06:11] LABS: POSITIVE COUNT NO; POSITIVE DIFFERENTIAL NO; POSITIVE MORPHOLOGY NO
[2018-03-23 06:27] LABS: Anion Gap 6 (5-15); BUN 38 mg/dL (7-18); BUN/Creat Ratio 37.6 RATIO (10-20); Calcium,Total 8.5 mg/dL (8.5-10.1); Chloride 112 mmol/L (98-107); Creatinine, Serum 1.01 mg/dL (0.70-1.30); EST Glomerular Filtration Rate 76 mL/min (>60); Est Glom Filt Rate - Afr Amer 92 mL/min (>60); Estimated Creatinine Clearance 61.23 ml/min; Glucose 101 mg/dL (74-106); Potassium 3.5 mmol/L (3.5-5.1); Sodium Level 146 mmol/L (136-145)
[2018-03-23] MEDS: Cyanocobalamin 500 MCG Tablet PO (08:48)
[2018-03-23] MEDS: predniSONE 20 MG Tablet PO ×2 (08:48→16:46)
[2018-03-23] MEDS: Aspirin 81 MG TAB.CHEW PO (08:48)
[2018-03-23] MEDS: Tuberculin,Purif.prot.deriv. 50 TU/ML Vial 5 ML ID (12:13)
--- NOTE | 2018-03-23 15:58 | CASEMGMT ---
Pt living will and Health care POA printed from [employer]. SW checked with pt who was able to verify these are the most current and correct advance directives. AD placed on pt chart. LIMA Lee
[2018-03-23 16:00] VITALS: BP 159/90; PULSE 70; RESP 18; TEMP 36.9; O2SAT 91
[2018-03-23] MEDS: Tamsulosin HCl 0.4 MG Capsule PO (16:46)
[2018-03-23] MEDS: Rivaroxaban 15 MG Tablet PO (16:46)
[2018-03-23] MEDS: Donepezil HCl 10 MG Tablet PO (21:11)
[2018-03-23] MEDS: MELATONIN 10 MG TABLET PO (21:11)
[2018-03-23] MEDS: Pregabalin 75 MG Capsule 300 MG PO (21:11)
[2018-03-23] MEDS: Acetaminophen 500 MG Tablet 1000 MG PO (21:13)
[2018-03-23 23:45] LABS: Bacteria 0 SEEN /hpf (None Seen); Mucous, Urine 0 SEEN /hpf (<or=2+); Squamous Epithelial Cells - UA 0 SEEN /hpf (0-5)
[2018-03-23 23:52] LABS: Color, Urine Yellow (Yellow); Glucose, Dipstick Normal (Normal); Ketone-Dipstick Negative (Negative); Leukocyte Esterase-Dipstick 100 /ul (Negative); Nitrite-Dipstick Negative (Negative); Occult Blood-Urine 250 /ul (Negative); Protein-Dipstick 30 mg/dl (Negative); Specific Gravity, Urine 1.015 (1.002-1.030); Urine Bilirubin Dipstick Negative (Negative); Urine Clarity Cloudy (Clear); Urine Urobilinogen Normal (Normal)
[2018-03-23 23:53] LABS: Red Blood Cells-Urine > 100 SEEN /hpf (0-5)
[2018-03-23 23:54] LABS: White Blood Cells 0-5 SEEN /hpf (0-5)
[2018-03-24] MEDS: Nystatin Powder 15gm Bottle 1 APPLIC TOPICAL ×2 (07:00→21:21)
[2018-03-24] MEDS: Finasteride 5 MG Tablet PO (07:00)
[2018-03-24] MEDS: Pantoprazole Sodium 20 MG Tablet PO (07:00)
[2018-03-24] MEDS: DULoxetine Hcl 60 MG Capsule PO (07:00)
[2018-03-24] MEDS: Menthol/Lanolin/Calamine/Znox 113 GM Tube 1 APPLIC TOPICAL ×2 (07:00→21:22)
[2018-03-24] MEDS: predniSONE 20 MG Tablet PO ×2 (09:10→16:09)
[2018-03-24] MEDS: Aspirin 81 MG TAB.CHEW PO (09:10)
[2018-03-24] MEDS: Cyanocobalamin 500 MCG Tablet PO (09:10)
--- NOTE | 2018-03-24 09:53 | PCM.PN.RX ---
<Alex Miller Laurie - Last Filed: 03/24/18 09:53> Progress Note - Pharmacy Subjective: TCU Admission Objective: Allergies lactose Allergy (Severe, Verified 03/16/18 11:21) unknown Penicillins Allergy (Severe, Verified 03/16/18 11:21) Anaphylaxis adhesive Allergy (Verified 03/16/18 11:21) Rash Sulfa (Sulfonamide Antibiotics) Allergy (Verified 03/16/18 11:21) Unknown diazepam [From Valium] Adverse Reaction (Verified 03/16/18 11:21) hyper opposite effect desired HYPER OPPOSITE EFFECT DESIRED niacin [From Niaspan Extended-Release] Adverse Reaction (Verified 03/16/18 11:21) low bp LOW BP simvastatin Adverse Reaction (Verified 03/16/18 11:21) Pain in joints Current Medications Generic Name Dose Route Start Last Admin Trade Name Freq PRN Reason Stop Dose Admin Acetaminophen 1,000 mg 03/22/18 20:39 03/23/18 21:13 Tylenol PO 1,000 mg Q6H PRN Administration MILD PAIN (1-3/10) Aspirin 81 mg 03/23/18 08:00 03/24/18 09:10 Aspirin, Baby PO 81 mg DAILY@0800 [facility] Administration Bisacodyl 10 mg 03/22/18 20:39 Dulcolax PO DAILY PRN Constipation Calamine/Phenol 1 applic 03/23/18 06:00 03/24/18 07:00 Calmoseptine Ointment TOPICAL 1 applicatio 0600,2200 [facility] Administration Protocol Cholecalciferol 1,000 unit 03/23/18 08:00 03/24/18 09:09 Vitamin D PO 1,000 unit DAILY@0800 [facility] Administration Cyanocobalamin 500 mcg 03/23/18 08:00 03/24/18 09:10 Vitamin B12 PO 500 mcg DAILY@0800 [facility] Administration Donepezil HCl 10 mg 03/22/18 22:00 03/23/18 21:11 Aricept PO 10 mg QHS [facility] Administration Duloxetine HCl 60 mg 03/23/18 06:00 03/24/18 07:00 Cymbalta PO 60 mg DAILY [facility] Administration Finasteride 5 mg 03/23/18 06:00 03/24/18 07:00 Proscar PO 5 mg DAILY [facility] Administration Melatonin 10 mg 03/22/18 22:00 03/23/18 21:11 Melatonin PO 10 mg QHS [facility] Administration Multivitamins/Minerals 1 tablet 03/23/18 08:00 03/24/18 09:10 Healthy Eyes PO 1 tablet BIDCM [facility] Administration Nystatin 1 applic 03/23/18 06:00 03/24/18 07:00 Mycostatin Powder TOPICAL 1 applicatio 0600,2200 [facility] Administration Protocol Oxycodone HCl 5 mg 03/22/18 19:59 Oxyir PO Q4H PRN PRN MOD-SEVERE PAIN (4-10/10) Pantoprazole Sodium 20 mg 03/23/18 06:00 03/24/18 07:00 Protonix PO 20 mg DAILY [facility] Administration Pneumococcal 13-Valent Conj Vacc 0.5 ml 03/24/18 10:00 Prevnar-13 (Pcv-13) IM 03/24/18 10:01 .ONCE ONE Polyethylene Glycol 17 gm 03/23/18 06:00 03/24/18 07:01 Miralax PO Not Given DAILY [facility] Prednisone 20 mg 03/23/18 08:00 03/24/18 09:10 PO 03/27/18 17:01 20 mg BIDCM [facility] Administration Prednisone 20 mg 03/28/18 08:00 PO 04/01/18 08:01 DAILY@0800 [facility] Pregabalin 300 mg 03/22/18 22:00 03/23/18 21:11 Lyrica PO 300 mg QHS [facility] Administration Rivaroxaban 15 mg 03/23/18 17:00 03/23/18 16:46 Xarelto PO 15 mg QPM@1700 [facility] Administration Senna/Docusate Sodium 2 tablet 03/23/18 06:00 03/24/18 07:02 Senokot-S, Maribel-Colace PO Not Given BID [facility] Tamsulosin HCl 0.4 mg 03/23/18 17:30 03/23/18 16:46 Flomax PO 0.4 mg DAILY@1730 [facility] Administration Tuberculin PPD 5 tu 03/30/18 10:00 Tubersol, Aplisol, Ppd ID 03/30/18 10:01 X1 ONE Problem List (Last Updated 03/21/18 @ 18:31 by Modesto Mclaughlin DO) Headache (Acute) Neck pain (Acute) Shoulder pain (Acute) BPH (benign prostatic hyperplasia) (Chronic) Depression (Chronic) Peripheral arterial occlusive disease (Chronic) Alzheimer's disease (Chronic) Neuropathic pain (Chronic) Vital Signs Temp Pulse Resp BP Pulse Ox 98.5 F 70 18 159/90 H 91 03/23/18 16:00 03/23/18 16:00 03/23/18 16:00 03/23/18 16:00 03/23/18 16:00 Oxygen Delivery Method Room Air Weight: 80.331 kg Body Mass Index (BMI) 25.4 Sodium 146 mmol/L (136-145) H 03/23/18 05:15 Potassium 3.5 mmol/L (3.5-5.1) 03/23/18 05:15 Chloride 112 mmol/L (98-107) H 03/23/18 05:15 Carbon Dioxide 28.0 mmol/L (21.0-32.0) 03/23/18 05:15 Anion Gap 6 (5-15) 03/23/18 05:15 BUN 38 mg/dL (7-18) H 03/23/18 05:15 Creatinine 1.01 mg/dL (0.70-1.30) 03/23/18 05:15 Est GFR (MDRD) Af Amer 92 mL/min (>60) 03/23/18 05:15 Est GFR (MDRD) Non-Af 76 mL/min (>60) 03/23/18 05:15 BUN/Creatinine Ratio 37.6 RATIO (10-20) H 03/23/18 05:15 Glucose 101 mg/dL (74-106) 03/23/18 05:15 Assessment/Plan: 1) Pain APAP for mild pain, oxycodone for moderate-severe pain, pregabalin. Continue to monitor prn medication use, daily pain scores. 2) AFib Rivaroxaban daily. Continue to monitor renal function, s/s bleeding/clot. 3) CAD ASA daily. Continue to monitor for chest pain. 4) GI Pantoprazole. Continue to monitor s/s GI distress. 5) Sleep Melatonin at HS. Continue to monitor for insomnia. 6) BPH Finasteride, tamsulosin. Continue to monitor for symptoms. 7) Alzheimer's Donepezil at HS. Continue to monitor clinically. Psychotropic Medications: 8) Depression Duloxetine daily. Continue to monitor s/s depression. Unnecessary Medications: None Bowel Regimen: 9) Senna/s, PEG, prn bisacodyl. Continue to monitor prn medication use, for constipation/diarrhea. Date of Note:: 03/24/18 - Provider Comments Provider responsibility: Provider responsible to enter orders to implement recommendations <Vinny Carlton Chi - Last Filed: 03/24/18 17:33> Progress Note - Pharmacy Subjective: [] Objective: Allergies lactose Allergy (Severe, Verified 03/16/18 11:21) unknown Penicillins Allergy (Severe, Verified 03/16/18 11:21) Anaphylaxis adhesive Allergy (Verified 03/16/18 11:21) Rash Sulfa (Sulfonamide Antibiotics) Allergy (Verified 03/16/18 11:21) Unknown diazepam [From Valium] Adverse Reaction (Verified 03/16/18 11:21) hyper opposite effect desired HYPER OPPOSITE EFFECT DESIRED niacin [From Niaspan Extended-Release] Adverse Reaction (Verified 03/16/18 11:21) low bp LOW BP simvastatin Adverse Reaction (Verified 03/16/18 11:21) Pain in joints Current Medications Generic Name Dose Route Start Last Admin Trade Name Freq PRN Reason Stop Dose Admin Acetaminophen 1,000 mg 03/22/18 20:39 03/23/18 21:13 Tylenol PO 1,000 mg Q6H PRN Administration MILD PAIN (1-3/10) Aspirin 81 mg 03/23/18 08:00 03/24/18 09:10 Aspirin, Baby PO 81 mg DAILY@0800 [facility] Administration Bisacodyl 10 mg 03/22/18 20:39 Dulcolax PO DAILY PRN Constipation Calamine/Phenol 1 applic 03/23/18 06:00 03/24/18 07:00 Calmoseptine Ointment TOPICAL 1 applicatio 0600,2200 [facility] Administration Protocol Cholecalciferol 1,000 unit 03/23/18 08:00 03/24/18 09:09 Vitamin D PO 1,000 unit DAILY@0800 [facility] Administration Cyanocobalamin 500 mcg 03/23/18 08:00 03/24/18 09:10 Vitamin B12 PO 500 mcg DAILY@0800 [facility] Administration Donepezil HCl 10 mg 03/22/18 22:00 03/23/18 21:11 Aricept PO 10 mg QHS [facility] Administration Duloxetine HCl 60 mg 03/23/18 06:00 03/24/18 07:00 Cymbalta PO 60 mg DAILY [facility] Administration Finasteride 5 mg 03/23/18 06:00 03/24/18 07:00 Proscar PO 5 mg DAILY [facility] Administration Melatonin 10 mg 03/22/18 22:00 03/23/18 21:11 Melatonin PO 10 mg QHS [facility] Administration Multivitamins/Minerals 1 tablet 03/23/18 08:00 03/24/18 16:09 Healthy Eyes PO 1 tablet BIDCM [facility] Administration Nystatin 1 applic 03/23/18 06:00 03/24/18 07:00 Mycostatin Powder TOPICAL 1 applicatio 0600,2200 [facility] Administration Protocol Oxycodone HCl 5 mg 03/22/18 19:59 Oxyir PO Q4H PRN PRN MOD-SEVERE PAIN (4-1010) Pantoprazole Sodium 20 mg 03/23/18 06:00 03/24/18 07:00 Protonix PO 20 mg DAILY [facility] Administration Polyethylene Glycol 17 gm 03/23/18 06:00 03/24/18 07:01 Miralax PO Not Given DAILY [facility] Prednisone 20 mg 03/23/18 08:00 03/24/18 16:09 PO 03/27/18 17:01 20 mg BIDCM [facility] Administration Prednisone 20 mg 03/28/18 08:00 PO 04/01/18 08:01 DAILY@0800 [facility] Pregabalin 300 mg 03/22/18 22:00 03/23/18 21:11 Lyrica PO 300 mg QHS [facility] Administration Rivaroxaban 15 mg 03/23/18 17:00 03/24/18 16:11 Xarelto PO 15 mg QPM@1700 [facility] Administration Senna/Docusate Sodium 2 tablet 03/23/18 06:00 03/24/18 16:10 Senokot-S, Maribel-Colace PO Not Given BID [facility] Tamsulosin HCl 0.4 mg 03/23/18 17:30 03/24/18 16:09 Flomax PO 0.4 mg DAILY@1730 [facility] Administration Tuberculin PPD 5 tu 03/30/18 10:00 Tubersol, Aplisol, Ppd ID 03/30/18 10:01 X1 ONE Problem List (Last Updated 03/21/18 @ 18:31 by Modesto Mclaughlin DO) Headache (Acute) Neck pain (Acute) Shoulder pain (Acute) BPH (benign prostatic hyperplasia) (Chronic) Depression (Chronic) Peripheral arterial occlusive disease (Chronic) Alzheimer's disease (Chronic) Neuropathic pain (Chronic) Vital Signs Temp Pulse Resp BP Pulse Ox 98.4 F 68 16 161/86 H 93 03/24/18 15:40 03/24/18 15:40 03/24/18 15:40 03/24/18 15:40 03/24/18 15:40 Oxygen Delivery Method Nasal Cannula Weight: 80.331 kg Body Mass Index (BMI) 25.4 Sodium 146 mmol/L (136-145) H 03/23/18 05:15 Potassium 3.5 mmol/L (3.5-5.1) 03/23/18 05:15 Chloride 112 mmol/L (98-107) H 03/23/18 05:15 Carbon Dioxide 28.0 mmol/L (21.0-32.0) 03/23/18 05:15 Anion Gap 6 (5-15) 03/23/18 05:15 BUN 38 mg/dL (7-18) H 03/23/18 05:15 Creatinine 1.01 mg/dL (0.70-1.30) 03/23/18 05:15 Est GFR (MDRD) Af Amer 92 mL/min (>60) 03/23/18 05:15 Est GFR (MDRD) Non-Af 76 mL/min (>60) 03/23/18 05:15 BUN/Creatinine Ratio 37.6 RATIO (10-20) H 03/23/18 05:15 Glucose 101 mg/dL (74-106) 03/23/18 05:15 Assessment/Plan: Psychotropic Medications: Unnecessary Medications: Bowel Regimen: - Provider Comments Provider responsibility: Provider responsible to enter orders to implement recommendations Provider Comments to Recommendations by Pharmacy: Agree
--- NOTE | 2018-03-24 10:00 | PHA.CONS_ITS ---
<Alex Miller Laurie - Last Filed: 03/24/18 09:53> Progress Note - Pharmacy Subjective: TCU Admission Objective: Allergies lactose Allergy (Severe, Verified 03/16/18 11:21) unknown Penicillins Allergy (Severe, Verified 03/16/18 11:21) Anaphylaxis adhesive Allergy (Verified 03/16/18 11:21) Rash Sulfa (Sulfonamide Antibiotics) Allergy (Verified 03/16/18 11:21) Unknown diazepam [From Valium] Adverse Reaction (Verified 03/16/18 11:21) hyper opposite effect desired HYPER OPPOSITE EFFECT DESIRED niacin [From Niaspan Extended-Release] Adverse Reaction (Verified 03/16/18 11:21) low bp LOW BP simvastatin Adverse Reaction (Verified 03/16/18 11:21) Pain in joints Current Medications Generic Name Dose Route Start Last Admin Trade Name Freq PRN Reason Stop Dose Admin Acetaminophen 1,000 mg 03/22/18 20:39 03/23/18 21:13 Tylenol PO 1,000 mg Q6H PRN Administration MILD PAIN (1-3/10) Aspirin 81 mg 03/23/18 08:00 03/24/18 09:10 Aspirin, Baby PO 81 mg DAILY@0800 [facility] Administration Bisacodyl 10 mg 03/22/18 20:39 Dulcolax PO DAILY PRN Constipation Calamine/Phenol 1 applic 03/23/18 06:00 03/24/18 07:00 Calmoseptine Ointment TOPICAL 1 applicatio 0600,2200 [facility] Administration Protocol Cholecalciferol 1,000 unit 03/23/18 08:00 03/24/18 09:09 Vitamin D PO 1,000 unit DAILY@0800 [facility] Administration Cyanocobalamin 500 mcg 03/23/18 08:00 03/24/18 09:10 Vitamin B12 PO 500 mcg DAILY@0800 [facility] Administration Donepezil HCl 10 mg 03/22/18 22:00 03/23/18 21:11 Aricept PO 10 mg QHS [facility] Administration Duloxetine HCl 60 mg 03/23/18 06:00 03/24/18 07:00 Cymbalta PO 60 mg DAILY [facility] Administration Finasteride 5 mg 03/23/18 06:00 03/24/18 07:00 Proscar PO 5 mg DAILY [facility] Administration Melatonin 10 mg 03/22/18 22:00 03/23/18 21:11 Melatonin PO 10 mg QHS [facility] Administration Multivitamins/Minerals 1 tablet 03/23/18 08:00 03/24/18 09:10 Healthy Eyes PO 1 tablet BIDCM [facility] Administration Nystatin 1 applic 03/23/18 06:00 03/24/18 07:00 Mycostatin Powder TOPICAL 1 applicatio 0600,2200 [facility] Administration Protocol Oxycodone HCl 5 mg 03/22/18 19:59 Oxyir PO Q4H PRN PRN MOD-SEVERE PAIN (4-10/10) Pantoprazole Sodium 20 mg 03/23/18 06:00 03/24/18 07:00 Protonix PO 20 mg DAILY [facility] Administration Pneumococcal 13-Valent Conj Vacc 0.5 ml 03/24/18 10:00 Prevnar-13 (Pcv-13) IM 03/24/18 10:01 .ONCE ONE Polyethylene Glycol 17 gm 03/23/18 06:00 03/24/18 07:01 Miralax PO Not Given DAILY [facility] Prednisone 20 mg 03/23/18 08:00 03/24/18 09:10 PO 03/27/18 17:01 20 mg BIDCM [facility] Administration Prednisone 20 mg 03/28/18 08:00 PO 04/01/18 08:01 DAILY@0800 [facility] Pregabalin 300 mg 03/22/18 22:00 03/23/18 21:11 Lyrica PO 300 mg QHS [facility] Administration Rivaroxaban 15 mg 03/23/18 17:00 03/23/18 16:46 Xarelto PO 15 mg QPM@1700 [facility] Administration Senna/Docusate Sodium 2 tablet 03/23/18 06:00 03/24/18 07:02 Senokot-S, Maribel-Colace PO Not Given BID [facility] Tamsulosin HCl 0.4 mg 03/23/18 17:30 03/23/18 16:46 Flomax PO 0.4 mg DAILY@1730 [facility] Administration Tuberculin PPD 5 tu 03/30/18 10:00 Tubersol, Aplisol, Ppd ID 03/30/18 10:01 X1 ONE Problem List (Last Updated 03/21/18 @ 18:31 by Modesto Mclaughlin DO) Headache (Acute) Neck pain (Acute) Shoulder pain (Acute) BPH (benign prostatic hyperplasia) (Chronic) Depression (Chronic) Peripheral arterial occlusive disease (Chronic) Alzheimer's disease (Chronic) Neuropathic pain (Chronic) Vital Signs Temp Pulse Resp BP Pulse Ox 98.5 F 70 18 159/90 H 91 03/23/18 16:00 03/23/18 16:00 03/23/18 16:00 03/23/18 16:00 03/23/18 16:00 Oxygen Delivery Method Room Air Weight: 80.331 kg Body Mass Index (BMI) 25.4 Sodium 146 mmol/L (136-145) H 03/23/18 05:15 Potassium 3.5 mmol/L (3.5-5.1) 03/23/18 05:15 Chloride 112 mmol/L (98-107) H 03/23/18 05:15 Carbon Dioxide 28.0 mmol/L (21.0-32.0) 03/23/18 05:15 Anion Gap 6 (5-15) 03/23/18 05:15 BUN 38 mg/dL (7-18) H 03/23/18 05:15 Creatinine 1.01 mg/dL (0.70-1.30) 03/23/18 05:15 Est GFR (MDRD) Af Amer 92 mL/min (>60) 03/23/18 05:15 Est GFR (MDRD) Non-Af 76 mL/min (>60) 03/23/18 05:15 BUN/Creatinine Ratio 37.6 RATIO (10-20) H 03/23/18 05:15 Glucose 101 mg/dL (74-106) 03/23/18 05:15 Assessment/Plan: 1) Pain APAP for mild pain, oxycodone for moderate-severe pain, pregabalin. Continue to monitor prn medication use, daily pain scores. 2) AFib Rivaroxaban daily. Continue to monitor renal function, s/s bleeding/clot. 3) CAD ASA daily. Continue to monitor for chest pain. 4) GI Pantoprazole. Continue to monitor s/s GI distress. 5) Sleep Melatonin at HS. Continue to monitor for insomnia. 6) BPH Finasteride, tamsulosin. Continue to monitor for symptoms. 7) Alzheimer's Donepezil at HS. Continue to monitor clinically. Psychotropic Medications: 8) Depression Duloxetine daily. Continue to monitor s/s depression. Unnecessary Medications: None Bowel Regimen: 9) Senna/s, PEG, prn bisacodyl. Continue to monitor prn medication use, for constipation/diarrhea. Date of Note:: 03/24/18 - Provider Comments Provider responsibility: Provider responsible to enter orders to implement recommendations <Vinny Carlton Chi - Last Filed: 03/24/18 17:33> Progress Note - Pharmacy Subjective: [] Objective: Allergies lactose Allergy (Severe, Verified 03/16/18 11:21) unknown Penicillins Allergy (Severe, Verified 03/16/18 11:21) Anaphylaxis adhesive Allergy (Verified 03/16/18 11:21) Rash Sulfa (Sulfonamide Antibiotics) Allergy (Verified 03/16/18 11:21) Unknown diazepam [From Valium] Adverse Reaction (Verified 03/16/18 11:21) hyper opposite effect desired HYPER OPPOSITE EFFECT DESIRED niacin [From Niaspan Extended-Release] Adverse Reaction (Verified 03/16/18 11:21) low bp LOW BP simvastatin Adverse Reaction (Verified 03/16/18 11:21) Pain in joints Current Medications Generic Name Dose Route Start Last Admin Trade Name Freq PRN Reason Stop Dose Admin Acetaminophen 1,000 mg 03/22/18 20:39 03/23/18 21:13 Tylenol PO 1,000 mg Q6H PRN Administration MILD PAIN (1-3/10) Aspirin 81 mg 03/23/18 08:00 03/24/18 09:10 Aspirin, Baby PO 81 mg DAILY@0800 [facility] Administration Bisacodyl 10 mg 03/22/18 20:39 Dulcolax PO DAILY PRN Constipation Calamine/Phenol 1 applic 03/23/18 06:00 03/24/18 07:00 Calmoseptine Ointment TOPICAL 1 applicatio 0600,2200 [facility] Administration Protocol Cholecalciferol 1,000 unit 03/23/18 08:00 03/24/18 09:09 Vitamin D PO 1,000 unit DAILY@0800 [facility] Administration Cyanocobalamin 500 mcg 03/23/18 08:00 03/24/18 09:10 Vitamin B12 PO 500 mcg DAILY@0800 [facility] Administration Donepezil HCl 10 mg 03/22/18 22:00 03/23/18 21:11 Aricept PO 10 mg QHS [facility] Administration Duloxetine HCl 60 mg 03/23/18 06:00 03/24/18 07:00 Cymbalta PO 60 mg DAILY [facility] Administration Finasteride 5 mg 03/23/18 06:00 03/24/18 07:00 Proscar PO 5 mg DAILY [facility] Administration Melatonin 10 mg 03/22/18 22:00 03/23/18 21:11 Melatonin PO 10 mg QHS [facility] Administration Multivitamins/Minerals 1 tablet 03/23/18 08:00 03/24/18 16:09 Healthy Eyes PO 1 tablet BIDCM [facility] Administration Nystatin 1 applic 03/23/18 06:00 03/24/18 07:00 Mycostatin Powder TOPICAL 1 applicatio 0600,2200 [facility] Administration Protocol Oxycodone HCl 5 mg 03/22/18 19:59 Oxyir PO Q4H PRN PRN MOD-SEVERE PAIN (4-1010) Pantoprazole Sodium 20 mg 03/23/18 06:00 03/24/18 07:00 Protonix PO 20 mg DAILY [facility] Administration Polyethylene Glycol 17 gm 03/23/18 06:00 03/24/18 07:01 Miralax PO Not Given DAILY [facility] Prednisone 20 mg 03/23/18 08:00 03/24/18 16:09 PO 03/27/18 17:01 20 mg BIDCM [facility] Administration Prednisone 20 mg 03/28/18 08:00 PO 04/01/18 08:01 DAILY@0800 [facility] Pregabalin 300 mg 03/22/18 22:00 03/23/18 21:11 Lyrica PO 300 mg QHS [facility] Administration Rivaroxaban 15 mg 03/23/18 17:00 03/24/18 16:11 Xarelto PO 15 mg QPM@1700 [facility] Administration Senna/Docusate Sodium 2 tablet 03/23/18 06:00 03/24/18 16:10 Senokot-S, Maribel-Colace PO Not Given BID [facility] Tamsulosin HCl 0.4 mg 03/23/18 17:30 03/24/18 16:09 Flomax PO 0.4 mg DAILY@1730 [facility] Administration Tuberculin PPD 5 tu 03/30/18 10:00 Tubersol, Aplisol, Ppd ID 03/30/18 10:01 X1 ONE Problem List (Last Updated 03/21/18 @ 18:31 by Modesto Mclaughlin DO) Headache (Acute) Neck pain (Acute) Shoulder pain (Acute) BPH (benign prostatic hyperplasia) (Chronic) Depression (Chronic) Peripheral arterial occlusive disease (Chronic) Alzheimer's disease (Chronic) Neuropathic pain (Chronic) Vital Signs Temp Pulse Resp BP Pulse Ox 98.4 F 68 16 161/86 H 93 03/24/18 15:40 03/24/18 15:40 03/24/18 15:40 03/24/18 15:40 03/24/18 15:40 Oxygen Delivery Method Nasal Cannula Weight: 80.331 kg Body Mass Index (BMI) 25.4 Sodium 146 mmol/L (136-145) H 03/23/18 05:15 Potassium 3.5 mmol/L (3.5-5.1) 03/23/18 05:15 Chloride 112 mmol/L (98-107) H 03/23/18 05:15 Carbon Dioxide 28.0 mmol/L (21.0-32.0) 03/23/18 05:15 Anion Gap 6 (5-15) 03/23/18 05:15 BUN 38 mg/dL (7-18) H 03/23/18 05:15 Creatinine 1.01 mg/dL (0.70-1.30) 03/23/18 05:15 Est GFR (MDRD) Af Amer 92 mL/min (>60) 03/23/18 05:15 Est GFR (MDRD) Non-Af 76 mL/min (>60) 03/23/18 05:15 BUN/Creatinine Ratio 37.6 RATIO (10-20) H 03/23/18 05:15 Glucose 101 mg/dL (74-106) 03/23/18 05:15 Assessment/Plan: Psychotropic Medications: Unnecessary Medications: Bowel Regimen: - Provider Comments Provider responsibility: Provider responsible to enter orders to implement recommendations Provider Comments to Recommendations by Pharmacy: Agree
[2018-03-24 15:40] VITALS: BP 161/86; PULSE 68; RESP 16; TEMP 36.9; O2SAT 93
[2018-03-24] MEDS: Tamsulosin HCl 0.4 MG Capsule PO (16:09)
[2018-03-24] MEDS: Rivaroxaban 15 MG Tablet PO (16:11)
[2018-03-24] MEDS: Donepezil HCl 10 MG Tablet PO (21:20)
[2018-03-24] MEDS: MELATONIN 10 MG TABLET PO (21:20)
[2018-03-24] MEDS: Pregabalin 75 MG Capsule 300 MG PO (21:21)
[2018-03-24] MEDS: Acetaminophen 500 MG Tablet 1000 MG PO (21:22)
[2018-03-25] MEDS: DULoxetine Hcl 60 MG Capsule PO (06:05)
[2018-03-25] MEDS: Finasteride 5 MG Tablet PO (06:05)
[2018-03-25] MEDS: Pantoprazole Sodium 20 MG Tablet PO (06:05)
[2018-03-25] MEDS: Nystatin Powder 15gm Bottle 1 APPLIC TOPICAL ×2 (06:06→20:55)
[2018-03-25] MEDS: Menthol/Lanolin/Calamine/Znox 113 GM Tube 1 APPLIC TOPICAL ×2 (06:06→20:55)
--- NOTE | 2018-03-25 07:33 | NURSING ---
F/C removed at 0730. Pt tolerated well. Voiding trial and bladder scans initiated, urinal provided. Will continue to monitor.
[2018-03-25] MEDS: Aspirin 81 MG TAB.CHEW PO (07:48)
[2018-03-25] MEDS: Cyanocobalamin 500 MCG Tablet PO (07:48)
[2018-03-25] MEDS: predniSONE 20 MG Tablet PO ×2 (07:48→18:08)
[2018-03-25 16:00] VITALS: BP 125/78; PULSE 92; RESP 18; TEMP 36.3; O2SAT 95
[2018-03-25] MEDS: Rivaroxaban 15 MG Tablet PO (18:08)
[2018-03-25] MEDS: Tamsulosin HCl 0.4 MG Capsule PO (18:08)
[2018-03-25] MEDS: Senna/Docusate Sodium 1 Tablet 2 TABLET PO (18:08)
[2018-03-25] MEDS: MELATONIN 10 MG TABLET PO (20:55)
[2018-03-25] MEDS: Donepezil HCl 10 MG Tablet PO (20:55)
[2018-03-25 21:00] VITALS: PULSE 78; O2SAT 95
[2018-03-25] MEDS: Pregabalin 75 MG Capsule 300 MG PO (21:00)
[2018-03-26] MEDS: Menthol/Lanolin/Calamine/Znox 113 GM Tube 1 APPLIC TOPICAL ×2 (06:39→20:38)
[2018-03-26] MEDS: Polyethylene Glycol 3350 17 GM PACKET PO (06:40)
[2018-03-26] MEDS: DULoxetine Hcl 60 MG Capsule PO (06:41)
[2018-03-26] MEDS: Nystatin Powder 15gm Bottle 1 APPLIC TOPICAL ×2 (06:41→20:38)
[2018-03-26] MEDS: Finasteride 5 MG Tablet PO (06:41)
[2018-03-26] MEDS: Senna/Docusate Sodium 1 Tablet 2 TABLET PO (06:41)
[2018-03-26] MEDS: Pantoprazole Sodium 20 MG Tablet PO (06:41)
[2018-03-26 07:48] VITALS: O2SAT 94
[2018-03-26] MEDS: Aspirin 81 MG TAB.CHEW PO (08:59)
[2018-03-26] MEDS: predniSONE 20 MG Tablet PO ×2 (08:59→16:45)
[2018-03-26] MEDS: Cyanocobalamin 500 MCG Tablet PO (08:59)
[2018-03-26 15:23] VITALS: BP 133/72; PULSE 68; RESP 18; TEMP 36.7; O2SAT 93
[2018-03-26] MEDS: Rivaroxaban 15 MG Tablet PO (16:45)
[2018-03-26] MEDS: Tamsulosin HCl 0.4 MG Capsule PO (16:45)
[2018-03-26] MEDS: Donepezil HCl 10 MG Tablet PO (20:38)
[2018-03-26] MEDS: MELATONIN 10 MG TABLET PO (20:38)
[2018-03-26] MEDS: Pregabalin 75 MG Capsule 300 MG PO (20:43)
[2018-03-27] MEDS: Pantoprazole Sodium 20 MG Tablet PO (06:00)
[2018-03-27] MEDS: Finasteride 5 MG Tablet PO (06:00)
[2018-03-27] MEDS: Senna/Docusate Sodium 1 Tablet 2 TABLET PO (06:00)
[2018-03-27] MEDS: Menthol/Lanolin/Calamine/Znox 113 GM Tube 1 APPLIC TOPICAL ×2 (06:01→21:23)
[2018-03-27] MEDS: Acetaminophen 500 MG Tablet 1000 MG PO ×2 (06:01→21:25)
[2018-03-27] MEDS: DULoxetine Hcl 60 MG Capsule PO (06:01)
[2018-03-27] MEDS: Nystatin Powder 15gm Bottle 1 APPLIC TOPICAL ×2 (06:01→21:23)
[2018-03-27] MEDS: oxyCODONE 5 MG Tablet PO (08:05)
[2018-03-27] MEDS: Cyanocobalamin 500 MCG Tablet PO (08:07)
[2018-03-27] MEDS: Aspirin 81 MG TAB.CHEW PO (08:08)
[2018-03-27] MEDS: predniSONE 20 MG Tablet PO ×2 (08:08→16:32)
[2018-03-27 15:33] VITALS: BP 114/46; PULSE 74; RESP 18; TEMP 36.4; O2SAT 93
[2018-03-27] MEDS: Tamsulosin HCl 0.4 MG Capsule PO (16:32)
[2018-03-27] MEDS: Rivaroxaban 15 MG Tablet PO (16:32)
[2018-03-27] MEDS: Pregabalin 75 MG Capsule 300 MG PO (21:23)
[2018-03-27] MEDS: MELATONIN 10 MG TABLET PO (21:24)
[2018-03-27] MEDS: Donepezil HCl 10 MG Tablet PO (21:24)
[2018-03-28] MEDS: Finasteride 5 MG Tablet PO (05:46)
[2018-03-28] MEDS: Pantoprazole Sodium 20 MG Tablet PO (05:46)
[2018-03-28] MEDS: Nystatin Powder 15gm Bottle 1 APPLIC TOPICAL ×2 (05:46→20:51)
[2018-03-28] MEDS: Menthol/Lanolin/Calamine/Znox 113 GM Tube 1 APPLIC TOPICAL ×2 (05:46→20:51)
[2018-03-28] MEDS: DULoxetine Hcl 60 MG Capsule PO (05:46)
[2018-03-28 06:27] VITALS: O2SAT 96
[2018-03-28] MEDS: Cyanocobalamin 500 MCG Tablet PO (08:15)
[2018-03-28] MEDS: predniSONE 20 MG Tablet PO (08:16)
[2018-03-28] MEDS: Aspirin 81 MG TAB.CHEW PO (08:16)
--- NOTE | 2018-03-28 09:52 | NURSING ---
R' was light headed during ADLs, requested to have blood sugar checked, It was 116. Bp lying was 98/58, sitting 96/63, and standing 103/86. Notified JULIUS Sandoval.
[2018-03-28 09:56] LABS: Bedside Glucose 116 mg/dL (70-110)
[2018-03-28 10:00] VITALS: PULSE 80; O2SAT 92
[2018-03-28 16:00] VITALS: BP 178/67; PULSE 71; RESP 16; TEMP 36.8; O2SAT 94
[2018-03-28] MEDS: Tamsulosin HCl 0.4 MG Capsule PO (16:58)
[2018-03-28] MEDS: Senna/Docusate Sodium 1 Tablet 2 TABLET PO (16:58)
[2018-03-28] MEDS: Rivaroxaban 15 MG Tablet PO (16:59)
[2018-03-28] MEDS: Pregabalin 75 MG Capsule 300 MG PO (20:52)
[2018-03-28] MEDS: Acetaminophen 500 MG Tablet 1000 MG PO (20:52)
[2018-03-28] MEDS: MELATONIN 10 MG TABLET PO (20:52)
[2018-03-28] MEDS: Donepezil HCl 10 MG Tablet PO (20:52)
[2018-03-29] MEDS: Senna/Docusate Sodium 1 Tablet 2 TABLET PO (04:44)
[2018-03-29] MEDS: DULoxetine Hcl 60 MG Capsule PO (04:44)
[2018-03-29] MEDS: Finasteride 5 MG Tablet PO (04:44)
[2018-03-29] MEDS: Pantoprazole Sodium 20 MG Tablet PO (04:44)
--- NOTE | 2018-03-29 04:54 | NURSING ---
Abrasion to right heel noted during transfer to restroom. Pt unaware how abrasion occurred. Pt denied mistreatment from staff. Pt state, You guys haven't even batted a sore eye at me. Pt informed this nurse he is very thankful for care provided and shock nurse's hand. Pt AOx3. Pt's feet noted to be dry and flaky, lotion applied. Bandaid applied to right heel. Will continue to monitor
[2018-03-29] MEDS: Acetaminophen 500 MG Tablet 1000 MG PO (05:09)
[2018-03-29] MEDS: oxyCODONE 5 MG Tablet PO (08:21)
[2018-03-29] MEDS: Cyanocobalamin 500 MCG Tablet PO (08:21)
[2018-03-29] MEDS: predniSONE 20 MG Tablet PO (08:21)
[2018-03-29] MEDS: Aspirin 81 MG TAB.CHEW PO (08:21)
--- NOTE | 2018-03-29 09:51 | NURSING ---
Patient has c/o sore tongue, coating on tongue. Dr. Carlton notified. NO for nytatin S&S x 10 days.
--- NOTE | 2018-03-29 09:58 | NURSING ---
Message left with Dr. Damon's nurse regarding ABD binder. Office to call back.
[2018-03-29] MEDS: NYSTATIN 500,000 UNIT/5 ML UDC 500000 UNIT PO ×3 (11:42→21:42)
[2018-03-29 16:00] VITALS: BP 117/62; PULSE 82; RESP 16; TEMP 36.6
--- NOTE | 2018-03-29 16:06 | NURSING ---
Patient reported to SPEEDBOAT OPERATOR and physical therapist that he fell yesterday evening and did not report it to staff. Patient states he was sitting on the edge of the bed when he slipped and fell onto the floor onto his buttocks. Denies hitting head or any pain or injury. PERRL, hand grasps strong and equal, pedal pushes strong and equal. Patient is alert and oriented. Will continue to monitor. Reported to nurse manager marketing communications and Dr. Carlton updated.
--- NOTE | 2018-03-29 16:26 | CASEMGMT ---
Brief interview for mental status (BIMS) and resident mood interview (PHQ-9) completed on this day. BIMS score 13/15. PHQ-9 score
[2018-03-29] MEDS: Tamsulosin HCl 0.4 MG Capsule PO (17:05)
[2018-03-29] MEDS: Rivaroxaban 15 MG Tablet PO (17:05)
--- NOTE | 2018-03-29 17:36 | NURSING ---
Florina, nursing home social worker, discussed patient's code status with him. Patient wishes to be a DNRCC. Explained meaning of DNRCC code status, patient agreeable.
[2018-03-29] MEDS: Donepezil HCl 10 MG Tablet PO (21:42)
[2018-03-29] MEDS: Pregabalin 75 MG Capsule 300 MG PO (21:42)
[2018-03-29] MEDS: MELATONIN 10 MG TABLET PO (21:42)
[2018-03-30 06:01] LABS: Absolute Lymphocyte Count 2.85 X10^3/ul (0.83-4.51); Absolute Neutrophil Count 7.5 X10^3/uL (2.0-7.7); Basophil# 0.02 X10^3/uL; Basophil% 0.2 % (0-1); Eosinophil# 0.04 X10^3/uL; Eosinophils% 0.4 % (0-5); Hemoglobin 12.2 g/dl (13.0-16.5); Lymphocyte # 2.85 X10^3/ul (4.0); Lymphocyte % 25.2 % (19-41); Mean Corp Hgb Conc 31.3 g/gl (32-36); Mean Corpuscular Hgb 27.6 pg (27.0-32.0); Mean Corpuscular Volume 88.2 fL (80-94); Monocyte# 0.81 X10^3/uL; Monocyte% 7.2 % (0-10); Neutrophil # 7.47 X10^3/uL (2.7-7.7); Neutrophil % 65.9 % (47-70); Platelet Count 305 K/mm3 (150-450); RBC Distribution Width CV 18.8 % (11.6-14.6); RBC Distribution Width SD 58.8 fl (35.1-43.9); Red Blood Count 4.42 M/mm3 (4.6-6.2); White Blood Count 11.3 K/mm3 (4.4-11.0)
[2018-03-30 06:12] LABS: POSITIVE COUNT NO; POSITIVE DIFFERENTIAL NO; POSITIVE MORPHOLOGY NO
[2018-03-30 06:23] LABS: Anion Gap 10 (5-15); BUN 30 mg/dL (7-18); BUN/Creat Ratio 26.8 RATIO (10-20); Calcium,Total 8.3 mg/dL (8.5-10.1); Chloride 108 mmol/L (98-107); Creatinine, Serum 1.12 mg/dL (0.70-1.30); EST Glomerular Filtration Rate 67 mL/min (>60); Est Glom Filt Rate - Afr Amer 81 mL/min (>60); Estimated Creatinine Clearance 55.22 ml/min; Glucose 68 mg/dL (74-106); Potassium 3.8 mmol/L (3.5-5.1); Sodium Level 145 mmol/L (136-145)
[2018-03-30] MEDS: Pantoprazole Sodium 20 MG Tablet PO (06:40)
[2018-03-30] MEDS: Finasteride 5 MG Tablet PO (06:40)
[2018-03-30] MEDS: NYSTATIN 500,000 UNIT/5 ML UDC 500000 UNIT PO ×4 (06:40→21:13)
[2018-03-30] MEDS: DULoxetine Hcl 60 MG Capsule PO (06:40)
[2018-03-30] MEDS: predniSONE 20 MG Tablet PO (08:33)
[2018-03-30] MEDS: Cyanocobalamin 500 MCG Tablet PO (08:33)
[2018-03-30] MEDS: Aspirin 81 MG TAB.CHEW PO (08:33)
[2018-03-30] MEDS: Acetaminophen 500 MG Tablet 1000 MG PO (08:35)
[2018-03-30 09:15] VITALS: BP 146/76; BP 148/67; BP 92/57; PULSE 68; PULSE 77; PULSE 83; RESP 18
--- NOTE | 2018-03-30 10:07 | NURSING ---
AT 9;15 THIS MORNING THERAPY CALLED THIS NURSE TO PT ROOM. REPORTED THAT PT WAS FEELING DIZZY WHEN HE STOOD. PT COMPLAINED OF FEELING DIZZY,LIGHT HEADED, HAD A HEADACHE BACK OF HEAD AND NECK AND ALSO STATED THE FLOOR WAS SPINNING. DID ORTHO VITALS: LYING 146/76 HR 77, SITTING 148/67 HR 68, STANDING 92/57 HR83. REPORTED TO JULIUS MURDOCK
[2018-03-30] MEDS: Tuberculin,Purif.prot.deriv. 50 TU/ML Vial 5 ML ID (10:46)
--- NOTE | 2018-03-30 14:04 | CASEMGMT ---
Plan of care meeting held. Resident present as well as resident family. Resident requesting to discharge to home on 04/03/18, team is agreeable to this. Therapy is recommending for resident to continue with further therapy within the home. Resident is agreeable to recommendation and requesting for home health care to be set up through an agency in [place]. Resident plans to discharge to home with spouse at time of discharge. Support given. Proposed discharge date: 04/03/18 PLAN: Discharge to home with spouse and home health care. Will continue to follow to set up further discharge planning. Anat Grover, USABILITY STRATEGIST, PERLITE GRINDER
[2018-03-30 16:00] VITALS: BP 136/77; PULSE 72; RESP 18; TEMP 36.7; O2SAT 93
[2018-03-30] MEDS: Rivaroxaban 15 MG Tablet PO (16:44)
[2018-03-30] MEDS: Tamsulosin HCl 0.4 MG Capsule PO (16:44)
--- NOTE | 2018-03-30 18:06 | DCINST_ITS ---
- Discharge Diagnoses Current Active Problems: Current Active and Chronic Problems (Last Updated 03/21/18 @ 18:31 by Modesto Mclaughlin DO) Headache (Acute) Neck pain (Acute) Shoulder pain (Acute) BPH (benign prostatic hyperplasia) (Chronic) Depression (Chronic) Peripheral arterial occlusive disease (Chronic) Alzheimer's disease (Chronic) Neuropathic pain (Chronic) You will use the following diet at home:: No restrictions, Regular Your food should be the consistency of: Regular Your liquids should be the consistency of: Regular/Thin Discharge Activity: Return to Normal Activity, May Shower, Use Walker Weight Bearing Status: Weight bearing as tolerated Call your doctor if you observe: Fever of 101 or Higher, Inability to urinate, Inability to have a bowel movement, Shortness of breath, Chest pain, Uncontrolled pain Allergies/Adverse Reactions: Allergies lactose Allergy (Severe, Verified 03/16/18 11:21) unknown Penicillins Allergy (Severe, Verified 03/16/18 11:21) Anaphylaxis adhesive Allergy (Verified 03/16/18 11:21) Rash Sulfa (Sulfonamide Antibiotics) Allergy (Verified 03/16/18 11:21) Unknown diazepam [From Valium] Adverse Reaction (Verified 03/16/18 11:21) hyper opposite effect desired HYPER OPPOSITE EFFECT DESIRED niacin [From Niaspan Extended-Release] Adverse Reaction (Verified 03/16/18 11:21) low bp LOW BP simvastatin Adverse Reaction (Verified 03/16/18 11:21) Pain in joints Medications to take at Discharge Cholecalciferol (Vitamin D3) [Vitamin D3] 1 tab PO DAILY 06/18/17 Cyanocobalamin [Vitamin B12] 1 tab PO DAILY 06/18/17 Melatonin 10 mg PO QHS 06/18/17 Omeprazole 20 mg PO DAILY 06/18/17 Vit A/Vit C/Vit E/Zinc/Copper [Preservision Areds Softgel] 1 cap PO BID 06/18/17 Aspirin 81 mg PO DAILY 01/22/18 Duloxetine HCl 60 mg PO DAILY 03/16/18 Donepezil HCl [Aricept] 10 mg PO QHS 03/22/18 Pregabalin [Lyrica] 300 mg PO QHS 03/22/18 Rivaroxaban [Xarelto] 15 mg PO QPM 03/22/18 Tamsulosin HCl [Flomax] 0.4 mg PO DAILY@1730 03/22/18 Finasteride [Proscar] 5 mg PO DAILY #30 tablet 03/30/18 Menthol/Lanolin/Calamine/Znox [Calmoseptine Ointment] 1 applic TOPICAL 0600,2200 tube 03/30/18 Mineral Oil/Petrolatum,White [Eucerin] 1 applic TOPICAL 0600,2200 jar 03/30/18 Nystatin 500,000 unit PO 4X/DAY #120 udc 03/30/18 Nystatin Powder [Mycostatin Powder] 1 applic TOPICAL 0600,2200 bottle 03/30/18 Oxycodone [Oxyir] 5 mg PO Q4H PRN PRN 5 Days #30 tab 03/30/18 Polyethylene Glycol 3350 [Miralax] 17 gm PO DAILY #30 packet 03/30/18 Senna/Docusate Sodium [Senokot-S] 2 tablet PO BID #60 tablet 03/30/18 The following prescriptions were given: Oxycodone [Oxyir] 5 mg PO Q4H PRN PRN 5 Days #30 tab PRN Reason: Mod-Severe Pain (4-10/10) Finasteride [Proscar] 5 mg PO DAILY #30 tablet Polyethylene Glycol 3350 [Miralax] 17 gm PO DAILY #30 packet Senna/Docusate Sodium [Senokot-S] 2 tablet PO BID #60 tablet Nystatin 500,000 unit PO 4X/DAY #120 udc Primary Care Physician: Stephanie Fuchs MD [Primary Care Provider] - Please follow up with your Primary Care Physician in: 1 week. Test Results: Test results from this visit will be discussed in further detail at your follow- up appointment, if applicable. Proposed Discharge Date: 04/03/18
--- NOTE | 2018-03-30 18:06 | PCM.DC.SUM ---
Discharge Date and Diagnosis - Problem List Patient Problems: Active and Suspected Problems (Last Updated 03/21/18 @ 18:31 by Modesto Mclaughlin DO) Headache (Acute) Neck pain (Acute) Shoulder pain (Acute) Date of Admission: 03/22/18 Date of Discharge: 04/03/18 - Primary Discharge Diagnosis Active and Suspected Problems (Last Updated 03/21/18 @ 18:31 by Modesto Mclaughlin DO) Headache (Acute) Neck pain (Acute) Shoulder pain (Acute) - Secondary Discharge Diagnosis Chronic Problems (Last Updated 03/21/18 @ 18:31 by Modesto Mclaughlin DO) Degenerative joint disease involving multiple joints (Chronic) Paroxysmal atrial fibrillation (Chronic) BPH (benign prostatic hyperplasia) (Chronic) Depression (Chronic) Peripheral arterial occlusive disease (Chronic) Alzheimer's disease (Chronic) Neuropathic pain (Chronic) CHF (congestive heart failure) (Chronic) diastolic COPD (chronic obstructive pulmonary disease) (Chronic) Pulmonary hypertension (Chronic) Tobacco abuse (Chronic) AAA (abdominal aortic aneurysm) (Chronic) PVD (peripheral vascular disease) (Chronic) Long-term use of high-risk medication (Chronic) Stage 2 moderate COPD by GOLD classification (Chronic) Malaise and fatigue (Chronic) ARLENE (obstructive sleep apnea) (Chronic) Central sleep apnea (Chronic) S/P PTCA (percutaneous transluminal coronary angioplasty) (Chronic) Cardiomyopathy (Chronic) SSS (sick sinus syndrome) (Chronic) Autonomic dysfunction (Chronic) HLD (hyperlipidemia) (Chronic) PAD (peripheral artery disease) (Chronic) Community acquired pneumonia (Chronic) Coronary artery disease (Chronic) S/P LAD and LCx stenting BPH (benign prostatic hypertrophy) with urinary obstruction (Chronic) Depressive disorder (Chronic) HTN (hypertension) (Chronic) Atrial fibrillation (Chronic) GERD (gastroesophageal reflux disease) (Chronic) History of orchiectomy, unilateral (Chronic) Pacemaker (Chronic) Nephrolithiasis (Chronic) Personality disorder (Chronic) Hospital Course and Treatment Imaging Results: 03/30/18 13:48 Diet: Cardiac/Low Cholesterol Is pt able to select menu?: Yes Labs (Last 48 Hours) 03/30/18 03/30/18 05:15 05:15 WBC 11.3 H RBC 4.42 L Hgb 12.2 L Hct 39.0 L MCV 88.2 MCH 27.6 MCHC 31.3 L RDW 18.8 H RDW Differential 58.8 H Plt Count 305 MPV 10.0 Immature Gran % (Auto) 1.100 H Neut % (Auto) 65.9 Lymph % (Auto) 25.2 Giles % (Auto) 7.2 Eos % (Auto) 0.4 Baso % (Auto) 0.2 Absolute Neuts (auto) 7.5 Absolute Lymphs (auto) 2.85 Total Counted Not Reportable Sodium 145 Potassium 3.8 Chloride 108 H Carbon Dioxide 27.0 Anion Gap 10 BUN 30 H Creatinine 1.12 Estim Creat Clear Calc 55.22 Est GFR (MDRD) Af Amer 81 Est GFR (MDRD) Non-Af 67 BUN/Creatinine Ratio 26.8 H Glucose 68 L Calcium 8.3 L Operations: None Procedures: None Summary of Care Provided: The patient is a 77 year old Male with below past medical history hospitalized for intractable headache, ruled out for meningitis, pain controlled with steroids, narcotics, muscle relaxants, admitted to TCU with debility, here for rehabilitation, strengthening, prior to disposition determination. On TCU, he developed thrush, will discharge with Nystatin swish and swallow. Discharge home with spouse, and Home Health Services. Patient Problems: Active and Suspected Problems (Last Updated 03/21/18 @ 18:31 by Modesto Mclaughlin DO) Headache (Acute) Neck pain (Acute) Shoulder pain (Acute) - Physical Exam Vital Signs Temp Pulse Resp BP Pulse Ox 98.0 F 72 18 136/77 H 93 03/30/18 16:00 03/30/18 16:00 03/30/18 16:00 03/30/18 16:00 03/30/18 16:00 Oxygen Delivery Method Room Air Weight: 80.331 kg Body Mass Index (BMI) 25.4 Intake and Output for Last 24 Hours 03/28/18 03/29/18 03/30/18 23:59 23:59 23:59 Intake Total 900 / 900 840 / 840 440 / 440 Output Total 550 / 550 Balance 350 / 350 840 / 840 440 / 440 Laboratory Tests Past 24 Hrs 03/30/18 03/30/18 05:15 05:15 WBC 11.3 H RBC 4.42 L Hgb 12.2 L Hct 39.0 L MCV 88.2 MCH 27.6 MCHC 31.3 L RDW 18.8 H RDW Differential 58.8 H Plt Count 305 MPV 10.0 Immature Gran % (Auto) 1.100 H Neut % (Auto) 65.9 Lymph % (Auto) 25.2 Giles % (Auto) 7.2 Eos % (Auto) 0.4 Baso % (Auto) 0.2 Absolute Neuts (auto) 7.5 Absolute Lymphs (auto) 2.85 Total Counted Not Reportable Sodium 145 Potassium 3.8 Chloride 108 H Carbon Dioxide 27.0 Anion Gap 10 BUN 30 H Creatinine 1.12 Estim Creat Clear Calc 55.22 Est GFR (MDRD) Af Amer 81 Est GFR (MDRD) Non-Af 67 BUN/Creatinine Ratio 26.8 H Glucose 68 L Calcium 8.3 L Discharge Diet: No Restrictions Discharge Activity: Return to Normal Activity, May Shower, Use Walker Weight Bearing Status: Weight bearing as tolerated Call your doctor if you observe: Fever of 101 or Higher, Inability to urinate, Inability to have a bowel movement, Shortness of breath, Chest pain, Uncontrolled pain Home Medications: Medications to take at Discharge Cholecalciferol (Vitamin D3) [Vitamin D3] 1 tab PO DAILY 06/18/17 Cyanocobalamin [Vitamin B12] 1 tab PO DAILY 06/18/17 Melatonin 10 mg PO QHS 06/18/17 Omeprazole 20 mg PO DAILY 06/18/17 Vit A/Vit C/Vit E/Zinc/Copper [Preservision Areds Softgel] 1 cap PO BID 06/18/17 Aspirin 81 mg PO DAILY 01/22/18 Duloxetine HCl 60 mg PO DAILY 03/16/18 Donepezil HCl [Aricept] 10 mg PO QHS 03/22/18 Pregabalin [Lyrica] 300 mg PO QHS 03/22/18 Rivaroxaban [Xarelto] 15 mg PO QPM 03/22/18 Tamsulosin HCl [Flomax] 0.4 mg PO DAILY@1730 03/22/18 Finasteride [Proscar] 5 mg PO DAILY #30 tablet 03/30/18 Menthol/Lanolin/Calamine/Znox [Calmoseptine Ointment] 1 applic TOPICAL 0600,2200 tube 03/30/18 Mineral Oil/Petrolatum,White [Eucerin] 1 applic TOPICAL 0600,2200 jar 03/30/18 Nystatin 500,000 unit PO 4X/DAY #120 udc 03/30/18 Nystatin Powder [Mycostatin Powder] 1 applic TOPICAL 0600,2200 bottle 03/30/18 Oxycodone [Oxyir] 5 mg PO Q4H PRN PRN 5 Days #30 tab 03/30/18 Polyethylene Glycol 3350 [Miralax] 17 gm PO DAILY #30 packet 03/30/18 Senna/Docusate Sodium [Senokot-S] 2 tablet PO BID #60 tablet 03/30/18 Following Prescrptions Were Given to Patient: Oxycodone [Oxyir] 5 mg PO Q4H PRN PRN 5 Days #30 tab PRN Reason: Mod-Severe Pain (-01/26) Finasteride [Proscar] 5 mg PO DAILY #30 tablet Polyethylene Glycol 3350 [Miralax] 17 gm PO DAILY #30 packet Senna/Docusate Sodium [Senokot-S] 2 tablet PO BID #60 tablet Nystatin 500,000 unit PO 4X/DAY [place]120 [facility] [place] Physician: Stephanie Fuchs MD [Primary Care Provider] - Please follow up with your Primary Care Physician in: 1 week. Disposition: Home with Home Health Minutes spent on discharge:: 35 Patient Condition:: Stable Medical Necessity - Tobacco Use Smoking Status: Current every day smoker Tobacco Use: Cigarettes Meaningful Use Info Meaningful Use Diagnoses (Choose all that apply): None applicable
--- NOTE | 2018-03-30 18:07 | PCM.PN.HH ---
Home Health Note - Plan Overview of reason of hospitalization: The patient is a 77 year old Male with below past medical history hospitalized for intractable headache, ruled out for meningitis, pain controlled with steroids, narcotics, muscle relaxants, admitted to TCU with debility, here for rehabilitation, strengthening, prior to disposition determination. On TCU, he developed thrush, will discharge with Nystatin swish and swallow. Discharge home with spouse, and Home Health Services. Problems: Patient was seen for (Last Updated 03/21/18 @ 18:31 by Modesto Mclaughlin DO) Headache (Acute) Neck pain (Acute) Shoulder pain (Acute) BPH (benign prostatic hyperplasia) (Chronic) Depression (Chronic) Peripheral arterial occlusive disease (Chronic) Alzheimer's disease (Chronic) Neuropathic pain (Chronic) Complete List of Medical Problems (Last Updated 03/21/18 @ 18:31 by Modesto Mclaughlin DO) Degenerative joint disease involving multiple joints (Chronic) Paroxysmal atrial fibrillation (Chronic) Headache (Acute) Neck pain (Acute) Shoulder pain (Acute) BPH (benign prostatic hyperplasia) (Chronic) Depression (Chronic) Peripheral arterial occlusive disease (Chronic) Alzheimer's disease (Chronic) Neuropathic pain (Chronic) Intractable headache (Acute) Neck stiffness (Acute) CHF (congestive heart failure) (Chronic) COPD (chronic obstructive pulmonary disease) (Chronic) Pulmonary hypertension (Chronic) Tobacco abuse (Chronic) AAA (abdominal aortic aneurysm) (Chronic) PVD (peripheral vascular disease) (Chronic) Long-term use of high-risk medication (Chronic) Stage 2 moderate COPD by GOLD classification (Chronic) Malaise and fatigue (Chronic) ARLENE (obstructive sleep apnea) (Chronic) Central sleep apnea (Chronic) S/P PTCA (percutaneous transluminal coronary angioplasty) (Chronic) Cardiomyopathy (Chronic) SSS (sick sinus syndrome) (Chronic) Autonomic dysfunction (Chronic) HLD (hyperlipidemia) (Chronic) PAD (peripheral artery disease) (Chronic) Community acquired pneumonia (Chronic) Coronary artery disease (Chronic) BPH (benign prostatic hypertrophy) with urinary obstruction (Chronic) Depressive disorder (Chronic) HTN (hypertension) (Chronic) Atrial fibrillation (Chronic) GERD (gastroesophageal reflux disease) (Chronic) History of orchiectomy, unilateral (Chronic) Pacemaker (Chronic) Nephrolithiasis (Chronic) Personality disorder (Chronic) - Requirements and Reasons Disciplines Needed/Ordered: Physical Therapy Reason for Disciplines: Gait Training, Stair Training, Fall Prevention, Home Safety/Equipment Instruction, Balance and/or Posture Training, Transfer Training Related To: Physical Impairments, Unsteady Gait/Balance, Fall Risk Patient is unable to leave the home: Without Aid of Supportive Devices (crutches, cane, wheelchair, walker), Without the assistance of another person - Additional Disciplines Additional Disciplines Needed/Ordered: Occupational Therapy
[2018-03-30] MEDS: 0.9% Normal Saline 1,000 ML 999 ML IV (18:52)
[2018-03-30] MEDS: Pregabalin 75 MG Capsule 300 MG PO (21:13)
[2018-03-30] MEDS: MELATONIN 10 MG TABLET PO (21:13)
[2018-03-30] MEDS: Donepezil HCl 10 MG Tablet PO (21:13)
[2018-03-31 05:30] VITALS: BP 104/65; BP 119/68; BP 142/83; PULSE 70; PULSE 71; PULSE 83
--- NOTE | 2018-03-31 05:30 | NURSING ---
ortho laying 142/83 and pulse 71 [id number] and pulse 70 laying 104/65 and pulse 83
[2018-03-31] MEDS: Pantoprazole Sodium 20 MG Tablet PO (05:34)
[2018-03-31] MEDS: Senna/Docusate Sodium 1 Tablet 2 TABLET PO (05:34)
[2018-03-31] MEDS: Finasteride 5 MG Tablet PO (05:34)
[2018-03-31] MEDS: NYSTATIN 500,000 UNIT/5 ML UDC 500000 UNIT PO ×4 (05:35→21:18)
[2018-03-31] MEDS: Polyethylene Glycol 3350 17 GM PACKET PO (05:35)
[2018-03-31] MEDS: DULoxetine Hcl 60 MG Capsule PO (05:36)
[2018-03-31] MEDS: Acetaminophen 500 MG Tablet 1000 MG PO (05:41)
[2018-03-31] MEDS: Aspirin 81 MG TAB.CHEW PO (08:48)
[2018-03-31] MEDS: predniSONE 20 MG Tablet PO (08:48)
[2018-03-31] MEDS: Cyanocobalamin 500 MCG Tablet PO (08:48)
--- NOTE | 2018-03-31 09:12 | CASEMGMT ---
Social Work Telephone matt to [facility] - [phone], voicemail left inquiring about making a skilled referral. Proposed discharge date: 04/03/18 PLAN: Discharge to home with spouse and home health care. Anat Grover, SHUTTLE INSPECTOR, TON CONTAINER SHIPPER
--- NOTE | 2018-03-31 11:52 | CASEMGMT ---
Social Work Telephone call from [facility], this social media marketing specialist making referral for physical and occupational therapy. Orders faxed along with clinical information. [facility] to call if there are any issues with the referral. Proposed discharge date: 04/03/18 PLAN: Discharge to home with spouse and home health care. LIMA Castle, FIELD ADMINISTRATOR
[2018-03-31 15:37] VITALS: BP 140/78; PULSE 68; RESP 16; TEMP 36.2; O2SAT 94
[2018-03-31] MEDS: Tamsulosin HCl 0.4 MG Capsule PO (17:03)
[2018-03-31] MEDS: Rivaroxaban 15 MG Tablet PO (17:03)
[2018-03-31] MEDS: MELATONIN 10 MG TABLET PO (21:18)
[2018-03-31] MEDS: Pregabalin 75 MG Capsule 300 MG PO (21:18)
[2018-03-31] MEDS: Donepezil HCl 10 MG Tablet PO (21:18)
--- NOTE | 2018-04-01 02:54 | NURSING ---
pT WOKE UP C/O SOB. dR OLIVEIRA NOTIFIED. ALBUTERAL ORDERED. RESP NOTIFIED. VITASL 98% ON RA. HR 70 BP 107/69 RESP 20
[2018-04-01 02:55] VITALS: BP 107/69; PULSE 70; RESP 20; O2SAT 98
[2018-04-01 03:00] VITALS: PULSE 68; RESP 18
[2018-04-01] MEDS: Albuterol 2.5 MG/3 ML VIAL.NEB. INHALATION ×2 (03:00→06:35)
[2018-04-01] MEDS: DULoxetine Hcl 60 MG Capsule PO (06:07)
[2018-04-01] MEDS: NYSTATIN 500,000 UNIT/5 ML UDC 500000 UNIT PO ×4 (06:07→21:12)
[2018-04-01] MEDS: Pantoprazole Sodium 20 MG Tablet PO (06:07)
[2018-04-01] MEDS: Finasteride 5 MG Tablet PO (06:07)
[2018-04-01 06:35] VITALS: PULSE 76; RESP 18; O2SAT 94
[2018-04-01] MEDS: predniSONE 20 MG Tablet PO (09:15)
[2018-04-01] MEDS: Aspirin 81 MG TAB.CHEW PO (09:15)
[2018-04-01] MEDS: Cyanocobalamin 500 MCG Tablet PO (09:15)
[2018-04-01] MEDS: Acetaminophen 500 MG Tablet 1000 MG PO (09:24)
--- NOTE | 2018-04-01 10:13 | MDS.RN ---
Information for the mds was obtained from review of the clinical record, interview of resident, staff, and direct observation of resident's care.
[2018-04-01 10:24] VITALS: BP 103/58; PULSE 72; RESP 18; O2SAT 98
--- NOTE | 2018-04-01 11:30 | NURSING ---
OXYIR SCRIPT GIVEN TO , WANTING TO PICK IT UP AT [facility] D/T IT BEING CLOSED ON WEDNESDAY DAY OF DISCHARGE.
[2018-04-01 15:33] VITALS: BP 123/63; PULSE 70; RESP 18; TEMP 36.7; O2SAT 93
[2018-04-01] MEDS: Senna/Docusate Sodium 1 Tablet 2 TABLET PO (16:53)
[2018-04-01] MEDS: Tamsulosin HCl 0.4 MG Capsule PO (16:53)
[2018-04-01] MEDS: Rivaroxaban 15 MG Tablet PO (16:53)
[2018-04-01] MEDS: Donepezil HCl 10 MG Tablet PO (21:12)
[2018-04-01] MEDS: Pregabalin 75 MG Capsule 300 MG PO (21:12)
[2018-04-01] MEDS: MELATONIN 10 MG TABLET PO (21:12)
[2018-04-02] MEDS: Acetaminophen 500 MG Tablet 1000 MG PO (04:48)
[2018-04-02] MEDS: NYSTATIN 500,000 UNIT/5 ML UDC 500000 UNIT PO ×4 (04:49→20:41)
[2018-04-02] MEDS: Pantoprazole Sodium 20 MG Tablet PO (04:49)
[2018-04-02] MEDS: DULoxetine Hcl 60 MG Capsule PO (04:49)
[2018-04-02] MEDS: Finasteride 5 MG Tablet PO (04:49)
[2018-04-02] MEDS: Aspirin 81 MG TAB.CHEW PO (08:14)
[2018-04-02] MEDS: Cyanocobalamin 500 MCG Tablet PO (08:15)
[2018-04-02 09:00] VITALS: PULSE 72; RESP 18; O2SAT 96
[2018-04-02 16:00] VITALS: BP 130/66; PULSE 71; RESP 14; TEMP 36.7; O2SAT 94
[2018-04-02] MEDS: Tamsulosin HCl 0.4 MG Capsule PO (16:58)
[2018-04-02] MEDS: Rivaroxaban 15 MG Tablet PO (16:58)
[2018-04-02] MEDS: Donepezil HCl 10 MG Tablet PO (20:40)
[2018-04-02] MEDS: MELATONIN 10 MG TABLET PO (20:41)
[2018-04-02] MEDS: Pregabalin 75 MG Capsule 300 MG PO (20:45)
--- NOTE | 2018-04-02 20:58 | RAD_ITS ---
STUDY: X-RAY CHEST REASON FOR EXAM: Male, 77 years old. Cough TECHNIQUE: Single frontal view of the chest. COMPARISON: March 20, 2018 FINDINGS: Dual-chamber pacemaker on the left. Chronic interstitial lung changes without superimposed acute alveolar disease. There is no demonstrated pleural abnormality. Normal size heart. Normal mediastinum and elis. Normal visualized pulmonary arteries. Normal visualized aortic arch and descending thoracic aorta. Normal visualized thoracic spine. Normal visualized ribs, clavicles, and shoulders. There is no demonstrated abnormality of the visualized soft tissue structures of the upper abdomen. RAD/Chest 1 View (Portable) IMPRESSION: Chronic interstitial lung changes without superimposed acute alveolar disease. Electronically Signed: Jose Miguel Aranda MD at 23:49 EST Tel , Service support ,
--- NOTE | 2018-04-02 21:02 | NURSING ---
Pt c/o of non-productive cough x2 days. Crackles noted to bilateral bases upon auscultation. Dr Carlton notified. N.O. for CXR and Robitussin 10mg q4hr PRN.
[2018-04-02] MEDS: guaiFENesin 10 ML UDC (200MG/10ML) PO (21:26)
[2018-04-02 22:53] VITALS: PULSE 76; RESP 18
[2018-04-02] MEDS: Albuterol 2.5 MG/3 ML VIAL.NEB. INHALATION (22:53)
[2018-04-03] MEDS: DULoxetine Hcl 60 MG Capsule PO (05:33)
[2018-04-03] MEDS: Menthol/Lanolin/Calamine/Znox 113 GM Tube 1 APPLIC TOPICAL (05:33)
[2018-04-03] MEDS: Pantoprazole Sodium 20 MG Tablet PO (05:34)
[2018-04-03] MEDS: Finasteride 5 MG Tablet PO (05:34)
[2018-04-03] MEDS: NYSTATIN 500,000 UNIT/5 ML UDC 500000 UNIT PO (05:34)
[2018-04-03 05:37] VITALS: PULSE 71; O2SAT 95
[2018-04-03] MEDS: Aspirin 81 MG TAB.CHEW PO (08:32)
[2018-04-03] MEDS: Cyanocobalamin 500 MCG Tablet PO (08:32)
[2018-04-03 11:56] VITALS: BP 131/72; PULSE 80; RESP 18; TEMP 37; O2SAT 96
== END 2018-04-03 11:20 | disposition home health service (06) | DRG 948 ==
PROVIDERS: Admitting Provider Family Medicine Geriatric Medicine; Family Provider Internal Medicine; PCP Internal Medicine; Visit Provider Family Medicine Geriatric Medicine
DX: R53.81 Other malaise (principal); I50.32 Chronic diastolic (congestive) heart failure; N13.8 Other obstructive and reflux uropathy; B37.0 Candidal stomatitis; Z23 Encounter for immunization; G47.33 Obstructive sleep apnea (adult) (pediatric); K21.9 Gastro-esophageal reflux disease without esophagitis; I25.10 Atherosclerotic heart disease of native coronary artery without angina pectoris; E78.5 Hyperlipidemia, unspecified; F02.80 Dementia in other diseases classified elsewhere, unspecified severity, without behavioral disturbance, psychotic disturbance, mood disturbance, and anxiety; G30.9 Alzheimer's disease, unspecified; I73.9 Peripheral vascular disease, unspecified; F32.9 Major depressive disorder, single episode, unspecified; I11.0 Hypertensive heart disease with heart failure; J44.9 Chronic obstructive pulmonary disease, unspecified; I27.20 Pulmonary hypertension, unspecified; I48.0 Paroxysmal atrial fibrillation; N40.1 Benign prostatic hyperplasia with lower urinary tract symptoms; F17.210 Nicotine dependence, cigarettes, uncomplicated; H35.30 Unspecified macular degeneration; F60.9 Personality disorder, unspecified; R33.8 Other retention of urine; M19.90 Unspecified osteoarthritis, unspecified site; I48.2 Chronic atrial fibrillation
CPT/HCPCS: 36415; 71045; 80048; 81001; 82962; 85025; 94640; 97110; 97116; 97163; 97166; 97530; 97535; 97802; 99406; J7030; 90670

== ENCOUNTER 2018-04-22 14:05 | Inpatient (IN) | payer MEDICARE, OTHER, SELFPAY ==
[2018-04-22] VITALS (8 sets, daily range): BP systolic 112–163; BP diastolic 49–79; PULSE 71–84; RESP 12–27; TEMP 36.6–37.4; O2SAT 92–100; BMI 23.6; BMI 23.7; BMI 23.0
--- NOTE | 2018-04-22 14:43 | EKG12_ITS ---
Test Reason : Blood Pressure : / mmHG Vent. Rate : 070 BPM Atrial Rate : 070 BPM P-R Int : 122 ms QRS Dur : 138 ms QT Int : 428 ms P-R-T Axes : 000 -87 -22 degrees QTc Int : 462 ms Atrial-paced rhythm Right bundle branch block Left anterior fascicular block Bifascicular block Cannot rule out Inferior infarct (masked by fascicular block?) , age undetermined Abnormal ECG Confirmed by ALDEN HANEY, MILDRED ([id number]), video news editor GUERITA ONEILL ([id number]) on 04/26/2018 8:48:26 AM Referred By: Lauren Valdes Confirmed By:MILDRED RUANO MD
--- NOTE | 2018-04-22 14:43 | CT_ITS ---
STUDY: CT CERVICAL SPINE WITHOUT CONTRAST REASON FOR EXAM: Male, 77 years old. Neck pain. Fall. RADIATION DOSAGE (If Supplied By Facility): CTDIvol = ( 19.06 ) mGy, DLP = ( 365.32 ) mGycm TECHNIQUE: High resolution transaxial imaging was performed without contrast material. Sagittal and coronal images were reconstructed. Individualized dose optimization techniques were used for this CT. COMPARISON: 03/16/2018 FINDINGS: No definite acute fracture/dislocation. The cervical junction is intact. C1-C2 articulation is intact. There is straightening. There is normal alignment. There is fusion between C6 and C7. Facet joints are intact at all levels bilaterally. No jumped facets. There is multilevel spondyloarthropathy. Multilevel degenerative disc disease seen. Multilevel loss of disc height. Multilevel posterior marginal osteophytes and disc bulges. Multilevel neural foraminal narrowing. Multilevel compromise of the spinal canal. Bilateral calcified plaque in the carotid arteries. Visualized paraspinal soft tissues and structures are otherwise unremarkable. CT/Spine Cervical without Contras IMPRESSION: There is no definite acute fracture/dislocation. Degenerative changes, stable. Electronically Signed: Atif Brice MD at 16:14 EST , Service support ,
--- NOTE | 2018-04-22 14:43 | CT_ITS ---
STUDY: CT BRAIN WITHOUT CONTRAST REASON FOR EXAM: Male, 77 years old. Falls. TIAs. Dementia. RADIATION DOSAGE (If Supplied By Facility): CTDIvol = ( 44.99 ) mGy, DLP = ( 812.98 ) mGycm TECHNIQUE: Transaxial CT imaging of the brain was performed without administration of intravenous contrast material. Individualized dose optimization techniques were used for this CT. COMPARISON: 03/16/2018. FINDINGS: There is no definite acute abnormality. There is diffuse mild symmetric atrophy. There is atrophy of the posterior fossa structures. There is diffuse small vessel ischemic disease of the white matter. There are stable prominent bilateral lacunar infarcts. There is no definite acute infarct. There is no bleed. There is no gross mass, mass effect, or midline shift. There is no acute abnormality of the skull. No fractures. Grossly normal orbits. Grossly normal sinuses. CT/Brain/Head without Contrast IMPRESSION: Chronic age related changes and atrophy. No acute abnormality. Electronically Signed: Atif Brice MD at 15:59 EST , Service support ,
[2018-04-22] MEDS: Ondansetron 4 MG/2 ML Vial IV (15:27)
[2018-04-22] MEDS: Morphine 4 MG/ML Syringe IM (15:27)
[2018-04-22 15:48] LABS: Absolute Lymphocyte Count 0.91 X10^3/ul (0.83-4.51); Absolute Neutrophil Count 7.7 X10^3/uL (2.0-7.7); Basophil# 0.02 X10^3/uL; Basophil% 0.2 % (0-1); Eosinophil# 0.04 X10^3/uL; Eosinophils% 0.4 % (0-5); Hemoglobin 11.2 g/dl (13.0-16.5); Lymphocyte # 0.91 X10^3/ul (4.0); Lymphocyte % 9.2 % (19-41); Mean Corp Hgb Conc 31.1 g/gl (32-36); Mean Corpuscular Hgb 26.6 pg (27.0-32.0); Mean Corpuscular Volume 85.5 fL (80-94); Mean Platelet Vol. 10.4 fl (6.2-12.0); Monocyte% 13.1 % (0-10); Neutrophil # 7.65 X10^3/uL (2.7-7.7); Neutrophil % 76.9 % (47-70); POSITIVE COUNT NO; POSITIVE DIFFERENTIAL NO; POSITIVE MORPHOLOGY NO; Platelet Count 327 K/mm3 (150-450); RBC Distribution Width CV 17.9 % (11.6-14.6); Red Blood Count 4.21 M/mm3 (4.6-6.2); White Blood Count 9.9 K/mm3 (4.4-11.0)
--- NOTE | 2018-04-22 15:48 | RAD_ITS ---
STUDY: X-RAY - LUMBAR SPINE REASON FOR EXAM: Male, 77 years old. Recent falls. TECHNIQUE: 3 view(s) of the lumbar spine were obtained. COMPARISON: None FINDINGS: There is straightening of the normal lumbar lordosis. There is no substantial scoliosis. There is a normal alignment of the vertebrae. There is multilevel endplate spondylosis of the lumbar vertebrae. There is multi-level degenerative disc disease with multi-level disc space narrowing. There has been progression of marked narrowing at L4-L5. There is no demonstrated fracture. There is atherosclerotic calcification of the abdominal aorta without a demonstrated aneurysm. RAD/Lumbar Spine 2 or 3 Views IMPRESSION: No acute abnormality. Multilevel degenerative changes worsening at L4-L5. Electronically Signed: Atif Brice MD at 17:08 EST , Service support ,
[2018-04-22 15:59] LABS: Anion Gap 10 (5-15); BUN 20 mg/dL (7-18); BUN/Creat Ratio 16.9 RATIO (10-20); Calcium,Total 8.6 mg/dL (8.5-10.1); Chloride 106 mmol/L (98-107); Creatinine, Serum 1.18 mg/dL (0.70-1.30); EST Glomerular Filtration Rate 63 mL/min (>60); Est Glom Filt Rate - Afr Amer 77 mL/min (>60); Estimated Creatinine Clearance 52.41 ml/min; Glucose 83 mg/dL (74-106); Potassium 3.4 mmol/L (3.5-5.1); Sodium Level 143 mmol/L (136-145)
--- NOTE | 2018-04-22 17:04 | CM.ED ---
Social Work Note Reason for Consult: Frequent Falls Informant: Dr. Bean Information obtained from: Medical records, pt and his , Hellen. Pt is alert and oriented x3. Presents with labile affect as evidenced by smiling and joking and then transitioning to tears. Pt often directs questions to spouse. Living Arrangements: Pt reports to live with his spouse in a one-story home with 2 CHAGO and a grab bar at the door entrance. DME consists of a walker, cane, shower chair, and toilet riser. Reports several falls, and claims it happens nearly daily. He does have HHC and an RN was out today. Hellen reports that PT came out last evening to do their initial evaluation. Pt has been without PT services since d/c from TCU. Stressors: Pt makes several comments about length of his life and loss of motivation. Concerns with losing independence. Supports: and children that live locally. Mental Health Hx: Reports anxiety and depression. Treated by PCP, Dr. Fuchs. Substance abuse hx: Alcohol abuse in the past, but resolved. No present substance abuse concerns. PCP: Dr. Fuchs Specialists: Dr. Lindsey, Dr. Parikh, Dr. Beatty, and Dr. Acosta. Pharmacy of Choice: [facility] in [place]. ASSESSMENT: Discuss option of placement as pt was within a SNF in the last 30 days and could return to one under his Medicare benefit. The pt discusses several times his motivation and try to have a discussion about quality of life and what that looks like for the pt. Pt states that he has had a negative view since a heart attack that he was brought back from. Discuss palliative care services which the pt is agreeable to a consultation. to be the contact to setup a meeting. Pt does agree to be placed on list for TCU. Called the referral line and left pt's name on voicemail requesting a bed. Faxed initial referral to [facility] for palliative care consult. Intervention(s) Name placed on TCU referral line voicemail. Palliative care consult submitted via fax to [facility]. PLAN: SNF pending acceptance and a palliative care consult. Consuelo Arevalo, VIJAYA, JW
--- NOTE | 2018-04-22 17:13 | HP.PCM_ITS ---
Problem List (1) Degenerative joint disease involving multiple joints Status: Chronic (2) Paroxysmal atrial fibrillation Status: Chronic (3) BPH (benign prostatic hyperplasia) Status: Chronic (4) Depression Status: Chronic (5) Peripheral arterial occlusive disease Status: Chronic (6) Alzheimer's disease Status: Chronic (7) Neuropathic pain Status: Chronic (8) CHF (congestive heart failure) Status: Chronic Qualifiers: Comment: diastolic (9) Pulmonary hypertension Status: Chronic (10) S/P TURP (status post transurethral resection of prostate) Status: Resolved (11) pacemaker implantation Status: Resolved Comment: generator change (12) History of inguinal hernia repair Status: Resolved (13) History of hemorrhoidectomy Status: Resolved (14) History of prostatectomy Status: Resolved (15) right ochiectomy Status: Resolved (16) History of appendectomy Status: Resolved (17) Tobacco abuse Status: Chronic (18) AAA (abdominal aortic aneurysm) Status: Chronic Qualifiers: Presence of rupture: without rupture Qualified Code(s): I71.4 - Abdominal aortic aneurysm, without rupture (19) PVD (peripheral vascular disease) Status: Chronic (20) Long-term use of high-risk medication Status: Chronic (21) Stage 2 moderate COPD by GOLD classification Status: Chronic (22) Acute respiratory failure with hypoxia Status: Resolved (23) ARLENE (obstructive sleep apnea) Status: Chronic (24) Central sleep apnea Status: Chronic (25) S/P PTCA (percutaneous transluminal coronary angioplasty) Status: Chronic (26) Cardiomyopathy Status: Chronic Qualifiers: Cardiomyopathy type: ischemic Qualified Code(s): I25.5 - Ischemic cardiomyopathy (27) SSS (sick sinus syndrome) Status: Chronic (28) Autonomic dysfunction Status: Chronic (29) HLD (hyperlipidemia) Status: Chronic Qualifiers: (30) PAD (peripheral artery disease) Status: Chronic (31) Coronary artery disease Status: Chronic Qualifiers: Comment: S/P LAD and LCx stenting (32) BPH (benign prostatic hypertrophy) with urinary obstruction Status: Chronic (33) Depressive disorder Status: Chronic (34) HTN (hypertension) Status: Chronic Qualifiers: (35) Atrial fibrillation Status: Chronic Qualifiers: (36) GERD (gastroesophageal reflux disease) Status: Chronic (37) History of orchiectomy, unilateral Status: Chronic (38) Nephrolithiasis Status: Chronic (39) Personality disorder Status: Chronic History of Present Illness Date of Admission: 04/22/18 Chief Complaint: Weakness, frequent falls. The patient is a 77 year old M who presents emergency room due to frequent falls, weakness. Patient was discharged from TCU 04/03/2018. at bedside states patient continued to fall at home and she has no longer able to help him. Patient reports chronic pain of his neck and back. Patient reports intermittent dizziness sometimes associated with falls. Patient states he feels his falls are a combination of generalized weakness/debility as well as dizziness/lightheadedness. Reports he loses his balance. Patient interested in palliative care referral. Wishes to better manage pain. Reports he is a DNR CCA and does not want any aggressive treatment or life saving measures. Wishes to return to TCU for further rehab. He has a past medical history of degenerative joint disease, BPH, atrial fibrillation, sick sinus syndrome status post pacemaker, COPD, ARLENE, hypertension, chronic diastolic CHF, pulmonary hypertension, dementia, CAD, chronic kidney disease stage III. 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) Paroxysmal atrial fibrillation (Chronic) BPH (benign prostatic hyperplasia) (Chronic) Depression (Chronic) Peripheral arterial occlusive disease (Chronic) Alzheimer's disease (Chronic) Neuropathic pain (Chronic) CHF (congestive heart failure) (Chronic) diastolic Pulmonary hypertension (Chronic) Tobacco abuse (Chronic) AAA (abdominal aortic aneurysm) (Chronic) PVD (peripheral vascular disease) (Chronic) Long-term use of high-risk medication (Chronic) Stage 2 moderate COPD by GOLD classification (Chronic) ARLENE (obstructive sleep apnea) (Chronic) Central sleep apnea (Chronic) S/P PTCA (percutaneous transluminal coronary angioplasty) (Chronic) Cardiomyopathy (Chronic) SSS (sick sinus syndrome) (Chronic) Autonomic dysfunction (Chronic) HLD (hyperlipidemia) (Chronic) PAD (peripheral artery disease) (Chronic) Coronary artery disease (Chronic) S/P LAD and LCx stenting BPH (benign prostatic hypertrophy) with urinary obstruction (Chronic) Depressive disorder (Chronic) HTN (hypertension) (Chronic) Atrial fibrillation (Chronic) GERD (gastroesophageal reflux disease) (Chronic) History of orchiectomy, unilateral (Chronic) Nephrolithiasis (Chronic) Personality disorder (Chronic) Medical History: Medical History (Last Updated 03/21/18 @ 18:31 by Modesto Mclaughlin DO) Fever (Resolved) R50.9 CHF (congestive heart failure) (Chronic) I50.9 diastolic COPD (chronic obstructive pulmonary disease) (Chronic) J44.9 Pulmonary hypertension (Chronic) I27.20 Intractable low back pain (Resolved) M54.5 Shortness of breath (Resolved) R06.02 Aspiration pneumonia (Resolved) J69.0 Tobacco abuse (Chronic) Z72.0 AAA (abdominal aortic aneurysm) (Chronic) I71.4 PVD (peripheral vascular disease) (Chronic) I73.9 Palpitations (Resolved) R00.2 Long-term use of high-risk medication (Chronic) Z79.899 Dizziness and giddiness (Resolved) R42 Syncope (Resolved) R55 Cough (Resolved) R05 Dyspnea (Resolved) R06.00 Bronchitis (Resolved) J40 Stage 2 moderate COPD by GOLD classification (Chronic) J44.9 Acute respiratory failure with hypoxia (Resolved) J96.01 Malaise and fatigue (Chronic) R53.81, R53.83 ARLENE (obstructive sleep apnea) (Chronic) G47.33 Central sleep apnea (Chronic) G47.31 Respiratory failure with hypoxia (Resolved) J96.91 Unstable angina (Resolved) Chest pain (Resolved) R07.9 Cardiomyopathy (Chronic) I42.9 SSS (sick sinus syndrome) (Chronic) I49.5 Autonomic dysfunction (Chronic) G90.9 HLD (hyperlipidemia) (Chronic) E78.5 PAD (peripheral artery disease) (Chronic) I73.9 Acute kidney injury (Resolved) N17.9 Sepsis (Resolved) A41.9 Community acquired pneumonia (Chronic) J18.9 Coronary artery disease (Chronic) I25.10 S/P LAD and LCx stenting BPH (benign prostatic hypertrophy) with urinary obstruction (Chronic) N40.1, N13.8 Depressive disorder (Chronic) F32.9 HTN (hypertension) (Chronic) I10 Atrial fibrillation (Chronic) I48.91 GERD (gastroesophageal reflux disease) (Chronic) K21.9 Pacemaker (Chronic) Z95.0 Nephrolithiasis (Chronic) Personality disorder (Chronic) F60.9 Allergies lactose Allergy (Severe, Verified 04/22/18 16:47) unknown Penicillins Allergy (Severe, Verified 04/22/18 16:47) Anaphylaxis adhesive Allergy (Verified 04/22/18 16:47) Rash Sulfa (Sulfonamide Antibiotics) Allergy (Verified 04/22/18 16:47) Unknown diazepam [From Valium] Adverse Reaction (Verified 04/22/18 16:47) hyper opposite effect desired HYPER OPPOSITE EFFECT DESIRED niacin [From Niaspan Extended-Release] Adverse Reaction (Verified 04/22/18 16:47) low bp LOW BP simvastatin Adverse Reaction (Verified 04/22/18 16:47) Pain in joints Home Medications: Ambulatory Orders Medication Instructions Recorded Cholecalciferol (Vitamin D3) 1 tab PO DAILY 06/18/17 [Vitamin D3] Cyanocobalamin [Vitamin B12] 1 tab PO DAILY 06/18/17 Melatonin 10 mg PO QHS 06/18/17 Omeprazole 20 mg PO DAILY 06/18/17 Vit A/Vit C/Vit E/Zinc/Copper 1 cap PO BID 06/18/17 [Preservision Areds Softgel] Aspirin 81 mg PO DAILY 01/22/18 Duloxetine HCl 60 mg PO BID 03/16/18 Donepezil HCl [Aricept] 10 mg PO QHS 03/22/18 Pregabalin [Lyrica] 300 mg PO QHS 03/22/18 Rivaroxaban [Xarelto] 15 mg PO QPM 03/22/18 Tamsulosin HCl [Flomax] 0.4 mg PO DAILY@1730 03/22/18 Finasteride [Proscar] 5 mg PO DAILY #30 tablet 03/30/18 Menthol/Lanolin/Calamine/Znox 1 applic TOPICAL 0600,2200 tube 03/30/18 [Calmoseptine Ointment] Mineral Oil/Petrolatum,White 1 applic TOPICAL 0600,2200 jar 03/30/18 [Eucerin] Nystatin 500,000 unit PO 4X/DAY #120 udc 03/30/18 Nystatin Powder [Mycostatin Powder] 1 applic TOPICAL 0600,2200 bottle 03/30/18 Polyethylene Glycol 3350 [Miralax] 17 gm PO DAILY #30 packet 03/30/18 Oxycodone [Oxyir] 2.5 mg PO Q6H PRN PRN 04/22/18 Senna/Docusate Sodium [Senokot-S] 2 tablet PO BID PRN 04/22/18 Surgical History: Surgical History (Last Reviewed 04/22/18 @ 17:26 by BERENICE Wheatley) S/P TURP (status post transurethral resection of prostate) (Resolved) Z90.79 pacemaker implantation (Resolved) generator change History of inguinal hernia repair (Resolved) Z98.890, Z87.19 History of hemorrhoidectomy (Resolved) Z98.890 History of prostatectomy (Resolved) Z98.890, Z90.79 right ochiectomy (Resolved) History of appendectomy (Resolved) Z98.890, Z90.49 S/P PTCA (percutaneous transluminal coronary angioplasty) (Chronic) Z98.61 History of orchiectomy, unilateral (Chronic) Z90.79 Surgical History: angioplasty, appendectomy, cholecystectomy, herniorrhaphy, pacemaker implantation, TURP, - - Prostatectomy. Psychiatric History: Depression, - - Personality disorder. Lives: Spouse/ Significant Other Smoking Status: Current every day smoker Alcohol: None Drugs: None - *Family History Paternal Family History: Family History (Last Reviewed 04/22/18 @ 17:26 by BERENICE Wheatley) Father CAD (coronary artery disease) Mother Breast cancer Arthritis CAD (coronary artery disease) Hypertension Sister CVA (cerebral vascular accident) Diabetes Hypertension Son CAD (coronary artery disease) Hypertension History Items: Heart Disease, Renal Disease Sibling Family History: Family History (Last Reviewed 04/22/18 @ 17:26 by BERENICE Wheatley) Father CAD (coronary artery disease) Mother Breast cancer Arthritis CAD (coronary artery disease) Hypertension Sister CVA (cerebral vascular accident) Diabetes Hypertension Son CAD (coronary artery disease) Hypertension History Items: Diabetes, Heart Disease Offspring Family History: Family History (Last Reviewed 04/22/18 @ 17:26 by BERENICE Wheatley) Father CAD (coronary artery disease) Mother Breast cancer Arthritis CAD (coronary artery disease) Hypertension Sister CVA (cerebral vascular accident) Diabetes Hypertension Son CAD (coronary artery disease) Hypertension History Items: Heart Disease Maternal Family History: Family History (Last Reviewed 04/22/18 @ 17:26 by BERENICE Wheatley) Father CAD (coronary artery disease) Mother Breast cancer Arthritis CAD (coronary artery disease) Hypertension Sister CVA (cerebral vascular accident) Diabetes Hypertension Son CAD (coronary artery disease) Hypertension History Items: Cancer, Heart Disease Review of Systems Constitutional: Reports: Weakness - With frequent falls. Denies: Chills, Fever, Weight Change HEENT: Denies: Head Aches, Sinus Congestion, Sinus Drainage Cardiovascular: Reports: Light Headedness. Denies: Chest Pain, Palpitations Respiratory: Denies: Cough, Shortness of breath at rest, Sputum production Gastrointestinal: Denies: Abdominal Pain, Nausea, Vomiting Genitourinary: Denies: Dysuria Musculoskeletal: Reports: Back Pain, Neck Pain. Denies: Joint Pain, Joint Tenderness Skin: Denies: Rash, Wounds Neurological: Reports: Balance problems. Denies: Focal weakness, Numbness, Tingling Psychiatric: Reports: Depression. Denies: Anxiety, Homicidal Ideations, Suicidal Ideations Hematologic/ Lymphatic: Denies: Easy Bruising, Easy Bleeding VTE Information - Inpt Only VTE Present on Admission: No VTE Mechan Device Prophylaxis: None VTE Pharm Prophylaxis ordered?: Yes - Physical Exam General: Alert, Oriented x3, Cooperative HEENT: Atraumatic, PERRLA, EOMI, Normocephalic Neck: Supple, No JVD, Negative Carotid Bruits Lungs: Clear to auscultation, Diminished Cardiovascular: Regular rate, Normal S1, Normal S2, No murmurs Abdomen: Bowel Sounds Present, Soft, Non Tender, Non-Distended Extremities: No clubbing, No cyanosis, No edema, Capillary Refill Less than 3 Seconds Skin: No rashes, No breakdown Musculoskeletal: No Tenderness to Palpation of Joints or Extremities Neurological: Cranial nerves II-XII grossly intact, Neuro grossly intact Psych/Mental Status: Normal Affect, Appropriate Vital Signs Temp Pulse Resp BP Pulse Ox 97.9 F 71 19 H 163/79 H 98 04/22/18 14:07 04/22/18 15:29 04/22/18 15:29 04/22/18 15:29 04/22/18 15:29 Oxygen Delivery Method Room Air Weight: 165 lb Body Mass Index (BMI) 23.6 Laboratory Tests Past 24 Hrs 04/22/18 04/22/18 15:30 15:30 WBC 9.9 RBC 4.21 L Hgb 11.2 L Hct 36.0 L MCV 85.5 MCH 26.6 L MCHC 31.1 L RDW 17.9 H RDW Differential 55.0 H Plt Count 327 MPV 10.4 Immature Gran % (Auto) 0.200 Neut % (Auto) 76.9 H Lymph % (Auto) 9.2 L [place] % (Auto) 13.1 H Eos % (Auto) 0.4 Baso % (Auto) 0.2 Absolute Neuts (auto) 7.7 Absolute Lymphs (auto) 0.91 Total Counted Not Reportable Sodium 143 Potassium 3.4 L Chloride 106 Carbon Dioxide 27.0 Anion Gap 10 BUN 20 H Creatinine 1.18 Estim Creat Clear Calc 52.41 Est GFR (MDRD) Af Amer 77 Est GFR (MDRD) Non-Af 63 BUN/Creatinine Ratio 16.9 Glucose 83 Calcium 8.6 Assessment/Plan All Active Problems (Last Updated 03/21/18 @ 18:31 by Modesto Mclaughlin DO) S/P TURP (status post transurethral resection of prostate) (Resolved) pacemaker implantation (Resolved) History of inguinal hernia repair (Resolved) History of hemorrhoidectomy (Resolved) History of prostatectomy (Resolved) right ochiectomy (Resolved) History of appendectomy (Resolved) Acute respiratory failure with hypoxia (Resolved) 1. Debility with frequent falls-patient is at high risk of injuring himself at home due to weakness with frequent falls. PT/OT. TCU and palliative care referral as discussed with SW in ED. Fall precautions. 2. Acute hypoxia suspected secondary to chronic COPD-obtain chest x-ray and respiratory panel. No wheezing on assessment. Apply supplemental oxygen to maintain O2 at or above 89%. 3. Atrial fibrillation on anticoagulation with Xarelto-rate controlled. Discontinue Xarelto given frequent falls. 4. Sick sinus syndrome status post pacemaker 5. BPH-continue Flomax, Proscar regimen. 6. Chronic diastolic CHF-no acute exacerbation. 7. Atrial fibrillation on anticoagulation with Xarelto-rate controlled. Discontinue Xarelto given frequent falls. 8. Obstructive sleep apnea-CPAP nightly. 9. Pulmonary hypertension 10. Dementia-continue Aricept regimen. 11. Depression/personality disorder-continue duloxetine regimen. 12. Hypertension-not on antihypertensive regimen. Continue to monitor. 13. CAD-not on aspirin, statin. 14. Chronic kidney disease stage III-stable. 15. Tobacco dependence-encourage smoking cessation. CODE STATUS: Discussed with patient and . DNR-CCA. Requesting palliative referral. DVT prophylaxis-Lovenox subcu This patient was seen by BERENICE Wheatley under the supervision of Dr. Valdes.
--- NOTE | 2018-04-22 17:17 | ED.VISSUMM ---
- ER Visit Summary Date of Service: 04/22/18 Chief Complaint: Fall History of Present Illness: The patient is a [address] Fuchs. He reports that he was in rehab until the beginning of March. States that he has had repeated falls over the past month. His last fall was this morning while he was attempting to put a short arm was sitting on the side of the bed. He is unsure whether he hit his head. He denies loss of consciousness. He reports he has neck pain is 10 out of 10 severity. He complains of back pain, but states this is chronic and unchanged. He also complains of mild left shoulder pain Review of systems patient reports that he has chest pain during the night quite often. He denies any pain at this time. He denies any fever, cough, or shortness of breath. Reports he is nauseated. He is not vomited. He complains of generalized weakness. Physical Examination: Vitals: Stable. Afebrile. Neck: Severe tenderness to palpation is diffuse over his C-spine. No point tenderness. Decreased range of motion secondary to pain.. Back: Mild diffuse tenderness palpation over his LS spine. No point tenderness. General: A&O x 3. NAD. Cardiovascular exam: Regular rate and rhythm, no murmur, rub or gallop. Respiratory exam: Chest nontender. No crepitus. Clear to auscultation bilaterally. No wheezes or stridor. Abdominal exam: Soft, nontender, nondistended, normal bowel sounds. No pain in RUQ or LUQ specifically. No peritoneal signs. Extremity: Atraumatic. No pain with range of motion. Test Results: EKG is paced at 70 with normal sensing and capture. CBC is more for an H&H 11.2 and 36.0, 7 neutrophils 77, lymphs lites of 9, monocytes 13. Chem-7 marked potassium 3.4 and BUN of 20. CT brain shows chronic changes. CT C-spine shows degenerative changes. LS spine x-rays show degenerative changes. Emergency Department Course and Treatment: Patient was treated with morphine and Zofran IV. He continues to experience a great deal of pain. He is unable to even get out of the bed let alone ambulate. Treatment Plan: The patient discharged from rehab approximately 1 month ago. He is attempting to get around at home with his walker and is falling repeatedly. He is also on Xarelto. I had a prolonged discussion with him that it is only a matter of time until he falls and has a serious injury. Patient also lives with his who at this point is unable support and keep him from falling or help him out. Patient was discussed with Dr. Valdes. He will be admitted to the hospital for further evaluation and treatment. Disposition: Admitted in stable condition. Impression: 1. Repeated falls. 2. Cervical strain. 3. Inability to ambulate. 4. Coagulopathy on Xarelto. This note was generated with [employer] dictation software. It may contain incorrect words, spelling, and punctuation that were not noted in review of the chart prior to signing ED Disposition - Plan for ED Patient: Chief Complaint: Other, Pain/Inj Referrals: Stephanie Fuchs MD [Primary Care Provider] -
--- NOTE | 2018-04-22 17:40 | RAD_ITS ---
STUDY: X-RAY CHEST REASON FOR EXAM: Male, 77 years old. Short of breath. TECHNIQUE: Single AP portable view of the chest. COMPARISON: 04/02/2018. FINDINGS: Limited by rotation to the right. The lungs are clear and expanded. There is no demonstrated pleural abnormality. Normal size heart. Pacemaker is seen with leads terminating in the right atrium and right ventricle. Normal mediastinum and elis. Normal visualized pulmonary arteries. Normal visualized aortic arch and descending thoracic aorta. Normal visualized thoracic spine. Normal visualized ribs, clavicles, and shoulders. There is no demonstrated abnormality of the visualized soft tissue structures of the upper abdomen. RAD/Chest 1 View (Portable) IMPRESSION: No definite change or acute chest disease. Electronically Signed: Atif Brice MD at 18:26 EST , Service support ,
[2018-04-22] MEDS: Ipratropium/Albuterol Sulfate 3 ML AMPUL.NEB INHALATION ×2 (17:46→20:45)
[2018-04-22] MEDS: Morphine 4 MG/ML Syringe IV (17:49)
[2018-04-22 21:01] LABS: Magnesium 1.6 mg/dL (1.6-2.6); Phosphorus 1.5 mg/dL (2.5-4.9)
[2018-04-22] MEDS: MELATONIN 10 MG TABLET PO (22:50)
[2018-04-22] MEDS: DULoxetine Hcl 60 MG Capsule PO (22:50)
[2018-04-22] MEDS: Donepezil HCl 10 MG Tablet PO (22:50)
[2018-04-22] MEDS: Tamsulosin HCl 0.4 MG Capsule PO (22:50)
[2018-04-22] MEDS: Multivitamin (Healthy Eyes) Capsule 1 CAP PO (22:50)
[2018-04-22] MEDS: Ketorolac 15 MG/ML Vial IV (22:51)
[2018-04-22] MEDS: 0.9% NaCl Peripheral Flush Adult/Peds IV (22:51)
[2018-04-22] MEDS: Menthol/Lanolin/Calamine/Znox 113 GM Tube 1 APPLIC TOPICAL (22:51)
[2018-04-22] MEDS: Pregabalin 75 MG Capsule 300 MG PO (22:58)
[2018-04-23] VITALS (7 sets, daily range): BP systolic 115–138; BP diastolic 58–69; PULSE 70–85; RESP 12–23; TEMP 36.6; O2SAT 92–97
--- NOTE | 2018-04-23 05:40 | CPS ---
pt off bipap for the morning
[2018-04-23] MEDS: Ketorolac 15 MG/ML Vial IV ×2 (06:51→14:38)
[2018-04-23] MEDS: Ipratropium/Albuterol Sulfate 3 ML AMPUL.NEB INHALATION ×2 (07:10→12:52)
[2018-04-23 07:18] LABS: Absolute Lymphocyte Count 0.93 X10^3/ul (0.83-4.51); Absolute Neutrophil Count 5.3 X10^3/uL (2.0-7.7); Basophil# 0.02 X10^3/uL; Basophil% 0.3 % (0-1); Eosinophil# 0.06 X10^3/uL; Eosinophils% 0.8 % (0-5); Hematocrit 33.5 % (40-54); Hemoglobin 10.2 g/dl (13.0-16.5); Lymphocyte # 0.93 X10^3/ul (4.0); Lymphocyte % 12.5 % (19-41); Mean Corp Hgb Conc 30.4 g/gl (32-36); Mean Corpuscular Hgb 25.9 pg (27.0-32.0); Monocyte% 14.8 % (0-10); Neutrophil # 5.31 X10^3/uL (2.7-7.7); Neutrophil % 71.5 % (47-70); Platelet Count 292 K/mm3 (150-450); RBC Distribution Width CV 17.8 % (11.6-14.6); RBC Distribution Width SD 55.7 fl (35.1-43.9); Red Blood Count 3.94 M/mm3 (4.6-6.2); White Blood Count 7.4 K/mm3 (4.4-11.0)
[2018-04-23 07:20] LABS: POSITIVE COUNT NO; POSITIVE DIFFERENTIAL NO; POSITIVE MORPHOLOGY NO
[2018-04-23 07:45] LABS: Anion Gap 8 (5-15); BUN 19 mg/dL (7-18); Calcium,Total 8.3 mg/dL (8.5-10.1); Chloride 107 mmol/L (98-107); Creatinine, Serum 1.12 mg/dL (0.70-1.30); EST Glomerular Filtration Rate 67 mL/min (>60); Est Glom Filt Rate - Afr Amer 81 mL/min (>60); Estimated Creatinine Clearance 55.04 ml/min; Glucose 93 mg/dL (74-106); Potassium 3.3 mmol/L (3.5-5.1); Sodium Level 143 mmol/L (136-145)
[2018-04-23] MEDS: Aspirin E.C. 81 MG Tablet PO (08:52)
--- NOTE | 2018-04-23 10:26 | CASEMGMT ---
Social Work Following up with patient in room on discharge plan. Reviewed ER social workers documentation. Referral has already been made to Palliative Care and TCU. Referral is pending approval with TCU. Spoke with patient in room. Patient confirming to want to transition to TCU at time of discharge, if needed and if approved. Patient reporting to have been thinking a lot about end of life and is reporting to not be concerns with dying. Patient presenting with a flat affect with minimal smiling during conversation. Patient reporting to be okay with and to honestly not be able to do much in life anymore. Patient denies suicidal thoughts/ideations/or attempts. Patient reporting to struggle with both depression and anxiety but to be able to manage symptoms while at home and doing well. Patient reporting that home has not been going well, due to patient weakness and frequent falls over the past few weeks. Patient does live with spouse and was receiving home health care. Support given. Patient is requesting for this social service worker to contact patient spouse in regards to discharge plan. Telephone call to patient spouse, voicemail left. Social work to continue to follow. ASHA CastleW, LINEMAN A CLASS
--- NOTE | 2018-04-23 11:03 | CASEMGMT ---
Social Work Telephone call to [facility] on [facility]. [facility] reporting to be able to accept patient today. Spoke with patient in room. Patient agreeable to transfer. Patient reporting that patient spouse is on way in and to be able to communicate information to spouse. Notified Dr. Mclaughlin and plans to discharge patient today to TCU. Transfer form initiated. LIMA Castle, TELEPHONE ORDER CLERK ROOM SERVICE
--- NOTE | 2018-04-23 11:09 | PCM.EXTCARCO ---
- Diet 04/22/18 19:58 Diet: Cardiac/Low Cholesterol Food consistency:: Regular Liquid Consistency:: Regular/Thin - Routine Orders/Code Status Enema Type: Fleetz Enema Frequency: Daily PRN Suppository Type: Dulcolax 10mg Suppository Frequency: Daily PRN O2 Liters per Minute: 2-3 O2 Frequency: Continuous Keep PO Greater than or Equal to (%): 90 Routine Lab Work: CBC, BMP, - - Daily X3 days and then Q Week. Code Status: [facility] - Wound(s) right foot great toe Wound Type: Abrasion bilat knees Wound Type: scattered abrasions right elbow Wound Type: Abrasion - Suggestions for Active Care Change Position every (hours): 2 Times a day to sit in chair: 3 - Therapies Physical Therapy: Eval and Treat Occupational Therapy: Eval and Treat - Problem/Diagnosis (1) Degenerative joint disease involving multiple joints Status: Chronic Current Visit: No (2) Paroxysmal atrial fibrillation Status: Chronic Current Visit: No (3) BPH (benign prostatic hyperplasia) Status: Chronic Current Visit: No (4) Depression Status: Chronic Current Visit: No (5) Peripheral arterial occlusive disease Status: Chronic Current Visit: No (6) Alzheimer's disease Status: Chronic Current Visit: No (7) Neuropathic pain Status: Chronic Current Visit: No (8) CHF (congestive heart failure) Status: Chronic Comment: diastolic Current Visit: No (9) Pulmonary hypertension Status: Chronic Current Visit: No (10) S/P TURP (status post transurethral resection of prostate) Status: Resolved Current Visit: No (11) pacemaker implantation Status: Chronic Comment: generator change Current Visit: No (12) History of inguinal hernia repair Status: Resolved Current Visit: No (13) History of hemorrhoidectomy Status: Resolved Current Visit: No (14) History of prostatectomy Status: Resolved Current Visit: No (15) right ochiectomy Status: Resolved Current Visit: No (16) History of appendectomy Status: Resolved Current Visit: No (17) Tobacco abuse Status: Chronic Current Visit: No (18) AAA (abdominal aortic aneurysm) Status: Chronic Current Visit: No (19) PVD (peripheral vascular disease) Status: Chronic Current Visit: No (20) Long-term use of high-risk medication Status: Chronic Current Visit: No (21) Stage 2 moderate COPD by GOLD classification Status: Chronic Current Visit: No (22) Acute respiratory failure with hypoxia Status: Chronic Comment: Suspected chronic. Acute hypoxia on admission without respiratory failure. Current Visit: No (23) ARLENE (obstructive sleep apnea) Status: Chronic Current Visit: No (24) Central sleep apnea Status: Chronic Current Visit: No (25) S/P PTCA (percutaneous transluminal coronary angioplasty) Status: Chronic Current Visit: No (26) Cardiomyopathy Status: Chronic Current Visit: No (27) SSS (sick sinus syndrome) Status: Chronic Current Visit: No (28) Autonomic dysfunction Status: Chronic Current Visit: No (29) HLD (hyperlipidemia) Status: Chronic Current Visit: No (30) PAD (peripheral artery disease) Status: Chronic Current Visit: No (31) Coronary artery disease Status: Chronic Comment: S/P LAD and LCx stenting Current Visit: No (32) BPH (benign prostatic hypertrophy) with urinary obstruction Status: Chronic Current Visit: No (33) Depressive disorder Status: Chronic Current Visit: No (34) HTN (hypertension) Status: Chronic Current Visit: No (35) Atrial fibrillation Status: Chronic Current Visit: No (36) GERD (gastroesophageal reflux disease) Status: Chronic Current Visit: No (37) History of orchiectomy, unilateral Status: Chronic Current Visit: No (38) Nephrolithiasis Status: Chronic Current Visit: No (39) Personality disorder Status: Chronic Current Visit: No - Allergies/Procedures Done in Hospital Allergies/Adverse Reactions: Allergies Penicillins Allergy (Severe, Verified 04/22/18 16:47) Anaphylaxis adhesive Allergy (Verified 04/22/18 16:47) Rash Sulfa (Sulfonamide Antibiotics) Allergy (Verified 04/22/18 19:01) Rash lactose Adverse Reaction (Unknown, Verified 04/22/18 19:00) GI UPSET diazepam [From Valium] Adverse Reaction (Verified 04/22/18 16:47) hyper opposite effect desired HYPER OPPOSITE EFFECT DESIRED niacin [From Niaspan Extended-Release] Adverse Reaction (Verified 04/22/18 16:47) low bp LOW BP simvastatin Adverse Reaction (Verified 04/22/18 16:47) Pain in joints Procedures: None - Type of Care/Length of Stay Estimated LOS: More Than 30 Days Type of Care Needed: Skilled Rehab Potential: Fair Prognosis: Fair - Additional Orders/Day of Discharge H&P will serve as current which was dated: 04/22/18 Day of Discharge: 04/23/18 - Dietary and Speech Recommendations Dietitian Recommendations/Changes: Rec diet change to regular, low sodium. Will switch ONS from ensure clear to enlive for more protein/calories if consumed. - Follow Up Care Primary Care Physician: Stephanie Fuchs MD [Primary Care Provider] - Please follow up with your Primary Care Physician in: 1 Week
[2018-04-23] MEDS: Cyanocobalamin 500 MCG Tablet PO (11:17)
[2018-04-23] MEDS: Enoxaparin 40 MG/0.4 ML Syringe SC (11:17)
[2018-04-23] MEDS: DULoxetine Hcl 60 MG Capsule PO (11:17)
[2018-04-23] MEDS: Multivitamin (Healthy Eyes) Capsule 1 CAP PO (11:17)
[2018-04-23] MEDS: Finasteride 5 MG Tablet PO (11:17)
[2018-04-23] MEDS: Pantoprazole Sodium 20 MG Tablet PO (11:17)
--- NOTE | 2018-04-23 11:17 | DS.PCM_ITS ---
Discharge Date and Diagnosis Date of Admission: 04/22/18 Date of Discharge: 04/23/18 - Primary Discharge Diagnosis 1. Debility with frequent falls 2. Acute hypoxia suspected secondary to chronic COPD 3. Chronic Atrial fibrillation 4. Sick sinus syndrome status post pacemaker 5. BPH 6. Chronic diastolic CHF 7. Obstructive sleep apnea 8. Pulmonary hypertension 9. Dementia 10. Depression/personality disorder 11. Hypertension 12. CAD 13. Chronic kidney disease stage III 14. Tobacco dependence 15. Palliative referral 16. Chronic intractable neck and back pain - Secondary Discharge Diagnosis Chronic Problems (Last Updated 03/21/18 @ 18:31 by Modesto Mclaughlin DO) Degenerative joint disease involving multiple joints (Chronic) Paroxysmal atrial fibrillation (Chronic) BPH (benign prostatic hyperplasia) (Chronic) Depression (Chronic) Peripheral arterial occlusive disease (Chronic) Alzheimer's disease (Chronic) Neuropathic pain (Chronic) CHF (congestive heart failure) (Chronic) diastolic Pulmonary hypertension (Chronic) pacemaker implantation (Chronic) generator change Tobacco abuse (Chronic) AAA (abdominal aortic aneurysm) (Chronic) PVD (peripheral vascular disease) (Chronic) Long-term use of high-risk medication (Chronic) Stage 2 moderate COPD by GOLD classification (Chronic) Acute respiratory failure with hypoxia (Chronic) Suspected chronic. Acute hypoxia on admission without respiratory failure. ARLENE (obstructive sleep apnea) (Chronic) Central sleep apnea (Chronic) S/P PTCA (percutaneous transluminal coronary angioplasty) (Chronic) Cardiomyopathy (Chronic) SSS (sick sinus syndrome) (Chronic) Autonomic dysfunction (Chronic) HLD (hyperlipidemia) (Chronic) PAD (peripheral artery disease) (Chronic) Coronary artery disease (Chronic) S/P LAD and LCx stenting BPH (benign prostatic hypertrophy) with urinary obstruction (Chronic) Depressive disorder (Chronic) HTN (hypertension) (Chronic) Atrial fibrillation (Chronic) GERD (gastroesophageal reflux disease) (Chronic) History of orchiectomy, unilateral (Chronic) Nephrolithiasis (Chronic) Personality disorder (Chronic) Hospital Course and Treatment Imaging Results: Diagnostic Data Brain CT 04/22/18 14:43 IMPRESSION: Chronic age related changes and atrophy. No acute abnormality. Electronically Signed: Atif Brice MD at 15:59 EST , Service support , Cervical Spine CT 04/22/18 14:43 IMPRESSION: There is no definite acute fracture/dislocation. Degenerative changes, stable. Electronically Signed: Atif Brice MD at 16:14 EST , Service support , Lumbar Spine X-Ray 04/22/18 15:48 IMPRESSION: No acute abnormality. Multilevel degenerative changes worsening at L4-L5. Electronically Signed: Atif Brice MD at 17:08 EST , Service support , Chest X-Ray 04/22/18 17:40 IMPRESSION: No definite change or acute chest disease. Electronically Signed: Atif Brice MD at 18:26 EST , Service support , Operations: None Procedures: None Summary of Care Provided: The patient is a 77 year old M admitted 04/22/18 due to weakness, frequent falls. 1. Debility with frequent falls-patient is at high risk of injuring himself at home due to weakness with frequent falls. PT/OT. TCU and palliative care referral. 2. Acute hypoxia suspected secondary to chronic COPD-chest x-ray unremarkable. Respiratory panel negative. Continue supplemental oxygen to maintain O2 at or above 89%. Patient will need walking pulse ox completed prior to discharge from SNF. 3. Atrial fibrillation on anticoagulation with Xarelto-rate controlled. Discontinue Xarelto given frequent falls. 4. Sick sinus syndrome status post pacemaker 5. BPH-continue Flomax, Proscar regimen. 6. Chronic diastolic CHF-no acute exacerbation. 7. Chronic intractable neck and back pain 8. Obstructive sleep apnea-CPAP nightly. 9. Pulmonary hypertension 10. Dementia-continue Aricept regimen. 11. Depression/personality disorder-continue duloxetine regimen. 12. Hypertension-not on antihypertensive regimen. Continue to monitor. 13. CAD-not on aspirin, statin. 14. Chronic kidney disease stage III-stable. 15. Tobacco dependence-encourage smoking cessation. General: Alert, Oriented x3, Cooperative HEENT: Atraumatic, PERRLA, EOMI, Normocephalic Neck: Supple, No JVD, Negative Carotid Bruits Lungs: Clear to auscultation, Diminished Cardiovascular: Regular rate, Normal S1, Normal S2, No murmurs Abdomen: Bowel Sounds Present, Soft, Non Tender, Non-Distended Extremities: No clubbing, No cyanosis, No edema, Capillary Refill Less than 3 Seconds Skin: No rashes, No breakdown Musculoskeletal: No Tenderness to Palpation of Joints or Extremities Neurological: Cranial nerves II-XII grossly intact, Neuro grossly intact Psych/Mental Status: Normal Affect, Appropriate Patient seen and examined prior to discharge. Physical assessment as noted above. Patient is stable for discharge with follow up recommendations as noted above. This patient was seen by BERENICE Wheatley under the supervision of Dr. Mclaughlin. - Physical Exam Vital Signs Temp Pulse Resp BP Pulse Ox 98 F 78 16 115/64 96 04/23/18 02:16 04/23/18 07:15 04/23/18 07:15 04/23/18 02:16 04/23/18 07:15 Oxygen Flow Rate (L/min) 2 Oxygen Delivery Method Nasal Cannula Weight: 160 lb 6.392 oz Body Mass Index (BMI) 23.0 Intake and Output for Last 24 Hours 04/21/18 04/22/18 04/23/18 23:59 23:59 23:59 Intake Total 350 / 350 Balance 350 / 350 Microbiology Past 72 Hours 04/22/18 17:50 Respiratory Panel (PCR) - Final Mucosa - Nasopharyngeal Laboratory Tests Past 24 Hrs 04/22/18 04/22/18 04/22/18 15:30 15:30 15:30 WBC 9.9 RBC 4.21 L Hgb 11.2 L Hct 36.0 L MCV 85.5 MCH 26.6 L MCHC 31.1 L RDW 17.9 H RDW Differential 55.0 H Plt Count 327 MPV 10.4 Immature Gran % (Auto) 0.200 Neut % (Auto) 76.9 H Lymph % (Auto) 9.2 L [place] % (Auto) 13.1 H Eos % (Auto) 0.4 Baso % (Auto) 0.2 Absolute Neuts (auto) 7.7 Absolute Lymphs (auto) 0.91 Total Counted Not Reportable Sodium 143 Potassium 3.4 L Chloride 106 Carbon Dioxide 27.0 Anion Gap 10 BUN 20 H Creatinine 1.18 Estim Creat Clear Calc 52.41 Est GFR (MDRD) Af Amer 77 Est GFR (MDRD) Non-Af 63 BUN/Creatinine Ratio 16.9 Glucose 83 Calcium 8.6 Phosphorus 1.5 L Magnesium 1.6 Troponin I < 0.015 04/23/18 04/23/18 06:21 06:21 WBC 7.4 RBC 3.94 L Hgb 10.2 L Hct 33.5 L MCV 85.0 MCH 25.9 L MCHC 30.4 L RDW 17.8 H RDW Differential 55.7 H Plt Count 292 MPV 10.0 Immature Gran % (Auto) 0.100 Neut % (Auto) 71.5 H Lymph % (Auto) 12.5 L [place] % (Auto) 14.8 H Eos % (Auto) 0.8 Baso % (Auto) 0.3 Absolute Neuts (auto) 5.3 Absolute Lymphs (auto) 0.93 Total Counted Not Reportable Sodium 143 Potassium 3.3 L Chloride 107 Carbon Dioxide 28.0 Anion Gap 8 BUN 19 H Creatinine 1.12 Estim Creat Clear Calc 55.04 Est GFR (MDRD) Af Amer 81 Est GFR (MDRD) Non-Af 67 BUN/Creatinine Ratio 17.0 Glucose 93 Calcium 8.3 L Phosphorus Magnesium Troponin I Home Medications: Medications to take at Discharge Cyanocobalamin [Vitamin B12] 1 tab PO DAILY 06/18/17 Melatonin 10 mg PO QHS 06/18/17 Omeprazole 20 mg PO DAILY 06/18/17 Vit A/Vit C/Vit E/Zinc/Copper [Preservision Areds Softgel] 1 cap PO BID 06/18/17 Duloxetine HCl 60 mg PO BID 03/16/18 Donepezil HCl [Aricept] 10 mg PO QHS 03/22/18 Pregabalin [Lyrica] 300 mg PO QHS 03/22/18 Tamsulosin HCl [Flomax] 0.4 mg PO DAILY@1730 03/22/18 Finasteride [Proscar] 5 mg PO DAILY #30 tablet 03/30/18 Menthol/Lanolin/Calamine/Znox [Calmoseptine Ointment] 1 applic TOPICAL 0600,2200 tube 03/30/18 Mineral Oil/Petrolatum,White [Eucerin] 1 applic TOPICAL 0600,2200 jar 03/30/18 Polyethylene Glycol 3350 [Miralax] 17 gm PO DAILY #30 packet 03/30/18 Aspirin E.C. [Ecotrin] 81 mg PO DAILY@0800 04/22/18 Cholecalciferol (VIT D3) [Vitamin D3] 1,000 unit PO DAILY 04/22/18 Oxycodone [Oxyir] 2.5 mg PO Q6H PRN PRN 04/22/18 Rosuvastatin Calcium [Crestor] 5 mg PO DAILY 04/22/18 Senna/Docusate Sodium [Senokot-S] 2 tablet PO BID PRN 04/22/18 Albuterol Aerosols [Ventolin Aerosols] 2.5 mg INHALATION Q2H PRN PRN vial.neb. 04/23/18 Cyclobenzaprine HCl 5 mg PO TID PRN PRN tablet 04/23/18 Ensure Enlive 120 ml PO 4X/DAY liquid 04/23/18 Hydrocodone Bitart/Apap 5-325 [[place] 5/325] 1 - 2 tablet PO Q6H PRN PRN tablet 04/23/18 Ipratropium/Albuterol Sulfate [Duoneb] 3 ml INHALATION Q6HWA.RT ampul.neb 04/23/18 Metronidazole [Flagyl] 500 mg PO BID #0 04/23/18 Primary Care Physician: Stephanie Fuchs MD [Primary Care Provider] - Please follow up with your Primary Care Physician in: 1 Week Disposition: Custodial facility Minutes spent on discharge:: 35 Patient Condition:: Stable Medical Necessity - Tobacco Use Smoking Status: Current every day smoker Tobacco Use: Cigarettes, Pipe Meaningful Use Info Meaningful Use Diagnoses (Choose all that apply): None applicable
[2018-04-23] MEDS: 0.9% NaCl Peripheral Flush Adult/Peds IV (14:35)
--- NOTE | 2018-04-23 14:53 | NURSING ---
[id number] pt being discharged to TCU, report called to Fran MADRID on TCU floor. pt and aware. Ovidio Ibrahim RN
== END 2018-04-23 15:29 | disposition skilled nursing facility (03) | DRG 948 ==
LOC: ED 18:31 → MS3 18:47
PROVIDERS: Admitting Provider Family Medicine; Emergency Provider Emergency Medicine; Family Provider Internal Medicine; PCP Internal Medicine; Referring Provider Family Medicine; Visit Provider Internal Medicine
DX: R53.81 Other malaise (principal); I13.0 Hypertensive heart and chronic kidney disease with heart failure and stage 1 through stage 4 chronic kidney disease, or unspecified chronic kidney disease; I50.32 Chronic diastolic (congestive) heart failure; I42.9 Cardiomyopathy, unspecified; R53.1 Weakness; R29.6 Repeated falls; I71.4 Abdominal aortic aneurysm, without rupture; E78.5 Hyperlipidemia, unspecified; R09.02 Hypoxemia; J44.9 Chronic obstructive pulmonary disease, unspecified; I48.2 Chronic atrial fibrillation; N18.3 Chronic kidney disease, stage 3 (moderate); N40.0 Benign prostatic hyperplasia without lower urinary tract symptoms; F32.9 Major depressive disorder, single episode, unspecified; G47.33 Obstructive sleep apnea (adult) (pediatric); I27.20 Pulmonary hypertension, unspecified; F60.9 Personality disorder, unspecified; I25.10 Atherosclerotic heart disease of native coronary artery without angina pectoris; M54.9 Dorsalgia, unspecified; M54.2 Cervicalgia; M15.9 Polyosteoarthritis, unspecified; Z95.0 Presence of cardiac pacemaker; G30.9 Alzheimer's disease, unspecified; F02.80 Dementia in other diseases classified elsewhere, unspecified severity, without behavioral disturbance, psychotic disturbance, mood disturbance, and anxiety; I73.9 Peripheral vascular disease, unspecified; K21.9 Gastro-esophageal reflux disease without esophagitis; Z95.5 Presence of coronary angioplasty implant and graft; F45.8 Other somatoform disorders; F17.210 Nicotine dependence, cigarettes, uncomplicated
CPT/HCPCS: 36415; 70450; 71045; 72100; 72125; 80048; 83735; 84100; 84484; 85025; 87633; 93005; 94002; 94003; 94640; 97162; 97166; 97802; 99285; A4216; J2405

== ENCOUNTER 2018-04-23 15:46 | Inpatient (IN) | payer MEDICARE, OTHER, SELFPAY ==
[2018-04-22 19:59] VITALS: BMI 23.0
[2018-04-23 15:54] VITALS: BP 121/63; PULSE 74; RESP 20; TEMP 35.7; O2SAT 95; BMI 23.6
--- NOTE | 2018-04-23 15:55 | NURSING ---
pt arrived from [facility] via [facility]
--- NOTE | 2018-04-23 16:37 | PCM.HP.STD ---
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 (4) Anxiety Status: Chronic (5) Neuropathy Status: Chronic (6) Chronic kidney disease Status: Chronic (7) Chronic diastolic heart failure Status: Chronic (8) COPD (chronic obstructive pulmonary disease) Status: Chronic (9) BPH (benign prostatic hyperplasia) Status: Chronic (10) Depression Status: Chronic (11) Peripheral arterial occlusive disease Status: Chronic (12) Alzheimer's disease Status: Chronic (13) AAA (abdominal aortic aneurysm) Status: Chronic Qualifiers: (14) ARLENE (obstructive sleep apnea) Status: Chronic (15) Autonomic dysfunction Status: Chronic (16) HLD (hyperlipidemia) Status: Chronic Qualifiers: (17) Coronary artery disease Status: Chronic Qualifiers: Comment: S/P LAD and LCx stenting (18) HTN (hypertension) Status: Chronic Qualifiers: (19) Atrial fibrillation Status: Chronic Qualifiers: History of Present Illness Date of Admission: 04/23/18 Chief Complaint: Here for rehabilitation, strengthening, prior to skilled nursing care placement. The patient is a 77 year old Male with below past medical history presented to [facility] Emergency Department 04/22/2018 with fall. 04/22/2018 CT brain chronic involutional changes. 04/22/2018 CT cervical spine negative acute fracture, dislocation. 04/22/2018 X-ray lumbar spine shows L4-L5 disc disease. Recent TCU resident, frequent falls. Fall this AM, 10 out of 10 neck pain. Chest pain, nausea. EKG paced, heart rate 70, Hemoglobin 11.2. Hematocrit 36. K 3.4, BUN 20. Morphine, Zofran IV given. 04/22/2018 Admit to Hospital. PT/OT, stop Xarelto due to falls. 04/22/2018 Chest X-ray negative. Respiratory panel negative. 04/23/2018 Admit to TCU with debility, here for rehabilitation, strengthening, prior to extended care facility placement. 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 Acute hypoxia on admission without respiratory failure. ARLENE (obstructive sleep apnea) (Chronic) Central sleep apnea (Chronic) S/P PTCA (percutaneous transluminal coronary angioplasty) (Chronic) Cardiomyopathy (Chronic) SSS (sick sinus syndrome) (Chronic) Autonomic dysfunction (Chronic) HLD (hyperlipidemia) (Chronic) PAD (peripheral artery disease) (Chronic) Coronary artery disease (Chronic) S/P LAD and LCx stenting BPH (benign prostatic hypertrophy) with urinary obstruction (Chronic) Depressive disorder (Chronic) HTN (hypertension) (Chronic) Atrial fibrillation (Chronic) GERD (gastroesophageal reflux disease) (Chronic) History of orchiectomy, unilateral (Chronic) Nephrolithiasis (Chronic) Personality disorder (Chronic) Medical History: Medical History (Last Updated 03/21/18 @ 18:31 by Modesto Mclaughlin DO) CHF (congestive heart failure) (Chronic) I50.9 diastolic Pulmonary hypertension (Chronic) I27.20 Tobacco abuse (Chronic) Z72.0 AAA (abdominal aortic aneurysm) (Chronic) I71.4 PVD (peripheral vascular disease) (Chronic) I73.9 Long-term use of high-risk medication (Chronic) Z79.899 Stage 2 moderate COPD by GOLD classification (Chronic) J44.9 Acute respiratory failure with hypoxia (Chronic) J96.01 Suspected chronic. Acute hypoxia on admission without respiratory failure. ARLENE (obstructive sleep apnea) (Chronic) G47.33 Central sleep apnea (Chronic) G47.31 Cardiomyopathy (Chronic) I42.9 SSS (sick sinus syndrome) (Chronic) I49.5 Autonomic dysfunction (Chronic) G90.9 HLD (hyperlipidemia) (Chronic) E78.5 PAD (peripheral artery disease) (Chronic) I73.9 Coronary artery disease (Chronic) I25.10 S/P LAD and LCx stenting BPH (benign prostatic hypertrophy) with urinary obstruction (Chronic) N40.1, N13.8 Depressive disorder (Chronic) F32.9 HTN (hypertension) (Chronic) I10 Atrial fibrillation (Chronic) I48.91 GERD (gastroesophageal reflux disease) (Chronic) K21.9 Nephrolithiasis (Chronic) Personality disorder (Chronic) F60.9 Allergies Penicillins Allergy (Severe, Verified 04/22/18 16:47) Anaphylaxis adhesive Allergy (Verified 04/22/18 16:47) Rash Sulfa (Sulfonamide Antibiotics) Allergy (Verified 04/22/18 19:01) Rash lactose Adverse Reaction (Unknown, Verified 04/22/18 19:00) GI UPSET diazepam [From Valium] Adverse Reaction (Verified 04/22/18 16:47) hyper opposite effect desired HYPER OPPOSITE EFFECT DESIRED niacin [From Niaspan Extended-Release] Adverse Reaction (Verified 04/22/18 16:47) low bp LOW BP simvastatin Adverse Reaction (Verified 04/22/18 16:47) Pain in joints Home Medications: Ambulatory Orders Medication Instructions Recorded Cyanocobalamin [Vitamin B12] 1 tab PO DAILY 06/18/17 Melatonin 10 mg PO QHS 06/18/17 Omeprazole 20 mg PO DAILY 06/18/17 Vit A/Vit C/Vit E/Zinc/Copper 1 cap PO BID 06/18/17 [Preservision Areds Softgel] Duloxetine HCl 60 mg PO BID 03/16/18 Donepezil HCl [Aricept] 10 mg PO QHS 03/22/18 Pregabalin [Lyrica] 300 mg PO QHS 03/22/18 Tamsulosin HCl [Flomax] 0.4 mg PO DAILY@1730 03/22/18 Finasteride [Proscar] 5 mg PO DAILY #30 tablet 03/30/18 Aspirin E.C. [Ecotrin] 81 mg PO DAILY@0800 04/22/18 Cholecalciferol (VIT D3) [Vitamin 1,000 unit PO DAILY 04/22/18 D3] Oxycodone [Oxyir] 2.5 mg PO Q6H PRN PRN 04/22/18 Rosuvastatin Calcium [Crestor] 5 mg PO DAILY 04/22/18 Senna/Docusate Sodium [Senokot-S] 2 tablet PO BID PRN 04/22/18 Albuterol Aerosols [Ventolin 2.5 mg INHALATION Q2H PRN PRN 04/23/18 Aerosols] vial.neb. Cyclobenzaprine HCl 5 mg PO TID PRN PRN tablet 04/23/18 Ensure Enlive 120 ml PO 4X/DAY 04/23/18 Hydrocodone Bitart/Apap 5-325 1 - 2 tablet PO Q6H PRN PRN tablet 04/23/18 [Seagrove 5/325] Ipratropium/Albuterol Sulfate 3 ml INHALATION Q6HWA.RT 04/23/18 [Duoneb] Menthol/Lanolin/Calamine/Znox 1 applic TOPICAL 0600,219904/23/18 [Calmoseptine Ointment] Metronidazole [Flagyl] 500 mg PO BID 04/23/18 Mineral Oil/Petrolatum,White 1 applic TOPICAL 0600,0 04/23/18 [Eucerin] Polyethylene Glycol 3350 [Miralax] 17 gm PO DAILY 04/23/18 Surgical History: Surgical History (Last Reviewed 04/22/18 @ 17:26 by BERENICE Wheatley) S/P TURP (status post transurethral resection of prostate) (Resolved) Z90.79 pacemaker implantation (Chronic) generator change History of inguinal hernia repair (Resolved) Z98.890, Z87.19 History of hemorrhoidectomy (Resolved) Z98.890 History of prostatectomy (Resolved) Z98.890, Z90.79 right ochiectomy (Resolved) History of appendectomy (Resolved) Z98.890, Z90.49 S/P PTCA (percutaneous transluminal coronary angioplasty) (Chronic) Z98.61 History of orchiectomy, unilateral (Chronic) Z90.79 Surgical History: angioplasty, appendectomy, cholecystectomy, herniorrhaphy, pacemaker implantation, TURP, - - Prostatectomy. Psychiatric History: Depression, - - Personality disorder. Lives: Spouse/ Significant Other Smoking Status: Current every day smoker Tobacco Use: Cigarettes Alcohol: None Drugs: None - *Family History Paternal Family History: Family History (Last Reviewed 04/22/18 @ 17:26 by BERENICE Wheatley) Father CAD (coronary artery disease) Mother Breast cancer Arthritis CAD (coronary artery disease) Hypertension Sister CVA (cerebral vascular accident) Diabetes Hypertension Son CAD (coronary artery disease) Hypertension History Items: Heart Disease, Renal Disease Sibling Family History: Family History (Last Reviewed 04/22/18 @ 17:26 by BERENICE Wheatley) Father CAD (coronary artery disease) Mother Breast cancer Arthritis CAD (coronary artery disease) Hypertension Sister CVA (cerebral vascular accident) Diabetes Hypertension Son CAD (coronary artery disease) Hypertension History Items: Diabetes, Heart Disease Offspring Family History: Family History (Last Reviewed 04/22/18 @ 17:26 by BERENICE Wheatley) Father CAD (coronary artery disease) Mother Breast cancer Arthritis CAD (coronary artery disease) Hypertension Sister CVA (cerebral vascular accident) Diabetes Hypertension Son CAD (coronary artery disease) Hypertension History Items: Heart Disease Maternal Family History: Family History (Last Reviewed 04/22/18 @ 17:26 by BERENICE Wheatley) Father CAD (coronary artery disease) Mother Breast cancer Arthritis CAD (coronary artery disease) Hypertension Sister CVA (cerebral vascular accident) Diabetes Hypertension Son CAD (coronary artery disease) Hypertension History Items: Cancer, Heart Disease Review of Systems Constitutional: Denies: Chills, Fever, Weight Change HEENT: Denies: Head Aches, Sinus Congestion, Sinus Drainage Cardiovascular: Denies: Chest Pain, Palpitations Respiratory: Denies: Cough, Shortness of breath at rest, Sputum production Gastrointestinal: Denies: Abdominal Pain, Nausea, Vomiting Genitourinary: Denies: Dysuria Musculoskeletal: Denies: Joint Pain, Joint Tenderness Skin: Denies: Rash, Wounds Neurological: Denies: Numbness, Tingling, Focal weakness Psychiatric: Denies: Anxiety, Depression, Homicidal Ideations, Suicidal Ideations Hematologic/ Lymphatic: Denies: Easy Bruising, Easy Bleeding VTE Information - Inpt Only VTE Present on Admission: No VTE Mechan Device Prophylaxis: Knee High NICK Hose VTE Pharm Prophylaxis ordered?: Yes Patient Problems: Active and Suspected Problems (Last Updated 03/21/18 @ 18:31 by Modesto Mclaughlin DO) Fall (Acute) - Physical Exam General: Alert, Oriented x3, Cooperative HEENT: Atraumatic, PERRLA, EOMI, Normocephalic Neck: Supple, No JVD, Negative Carotid Bruits Lungs: Clear to auscultation, Normal air movement Cardiovascular: Regular rate, No murmurs Abdomen: Bowel Sounds Present, Soft, Non Tender Extremities: No edema, Capillary Refill Less than 3 Seconds Skin: No rashes, No breakdown Musculoskeletal: No Tenderness to Palpation of Joints or Extremities Neurological: Cranial nerves II-XII grossly intact Psych/Mental Status: Normal Affect, Appropriate Vital Signs Temp Pulse Resp BP Pulse Ox 96.3 F L 74 20 H 121/63 H 95 04/23/18 15:54 04/23/18 15:54 04/23/18 15:54 04/23/18 15:54 04/23/18 15:54 Oxygen Flow Rate (L/min) 2 Oxygen Delivery Method Nasal Cannula Weight: 74.752 kg Body Mass Index (BMI) 23.6 Assessment/Plan All Active Problems (Last Reviewed 04/22/18 @ 17:26 by Consuelo Clayton NP-C) Fall (Acute) S/P TURP (status post transurethral resection of prostate) (Resolved) History of inguinal hernia repair (Resolved) History of hemorrhoidectomy (Resolved) History of prostatectomy (Resolved) right ochiectomy (Resolved) History of appendectomy (Resolved) 77 year old male with below past medical history hospitalized for fall, admitted to TCU with debility, here for rehabilitation, strengthening, prior to extended care facility placement. Debility - PT/OT. Pain - Seagrove 5/325MG 1 tablet Q6H PRN moderate pain, Oxycodone 2.5MG Q6H PRN severe pain. Bowel - Miralax 17GM daily, Senna/colace 2 tablets BID, Dulcolax 10MG daily PRN. Pneumonia vaccination - Administer Prevnar 13 and/or Pneumovax 23 as necessary. DVT prophylaxis - Lovenox 40MG SC daily. COPD - Duoneb 3ML Q6HWA, Albuterol 2.5MG Q2H PRN. Coronary Artery Disease - Aspirin 81MG daily. Vitamin D deficiency - D3 1000IU daily. Vitamin B12 deficiency - B12 500MCG daily. Muscle spasm - Flexeril 5MG TID PRN. Alzheimer's Disease - Donepezil 10MG QHS. Chronic pain - Duloxetine 60MG BID. Nutrition - Ensure Enlive 120ML 4x/day. BPH - Finasteride 5MG daily, Tamsulosin 0.4MG daily. Insomnia - Melatonin 10MG QHS. Skin irritation - Calmoseptine BID bilateral buttocks. C. Diff prophylaxis - Flagyl 500MG BID. GERD - Omeprazole 20MG daily. Neuropathic pain - Lyrica 300MG QHS. Hyperlipidemia - Rosuvastatin 5MG QHS.
--- NOTE | 2018-04-23 16:43 | HP.PCM_ITS ---
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 (4) Anxiety Status: Chronic (5) Neuropathy Status: Chronic (6) Chronic kidney disease Status: Chronic (7) Chronic diastolic heart failure Status: Chronic (8) COPD (chronic obstructive pulmonary disease) Status: Chronic (9) BPH (benign prostatic hyperplasia) Status: Chronic (10) Depression Status: Chronic (11) Peripheral arterial occlusive disease Status: Chronic (12) Alzheimer's disease Status: Chronic (13) AAA (abdominal aortic aneurysm) Status: Chronic Qualifiers: (14) ARLENE (obstructive sleep apnea) Status: Chronic (15) Autonomic dysfunction Status: Chronic (16) HLD (hyperlipidemia) Status: Chronic Qualifiers: (17) Coronary artery disease Status: Chronic Qualifiers: Comment: S/P LAD and LCx stenting (18) HTN (hypertension) Status: Chronic Qualifiers: (19) Atrial fibrillation Status: Chronic Qualifiers: History of Present Illness Date of Admission: 04/23/18 Chief Complaint: Here for rehabilitation, strengthening, prior to custodial care placement. The patient is a 77 year old Male with below past medical history presented to [facility] Emergency Department 04/22/2018 with fall. 04/22/2018 CT brain chronic involutional changes. 04/22/2018 CT cervical spine negative acute fracture, dislocation. 04/22/2018 X-ray lumbar spine shows L4-L5 disc disease. Recent TCU resident, frequent falls. Fall this AM, 10 out of 10 neck pain. Chest pain, nausea. EKG paced, heart rate 70, Hemoglobin 11.2. Hematocrit 36. K 3.4, BUN 20. Morphine, Zofran IV given. 04/22/2018 Admit to Hospital. PT/OT, stop Xarelto due to falls. 04/22/2018 Chest X-ray negative. Respiratory panel negative. 04/23/2018 Admit to TCU with debility, here for rehabilitation, strengthening, prior to extended care facility placement. 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 Acute hypoxia on admission without respiratory failure. ARLENE (obstructive sleep apnea) (Chronic) Central sleep apnea (Chronic) S/P PTCA (percutaneous transluminal coronary angioplasty) (Chronic) Cardiomyopathy (Chronic) SSS (sick sinus syndrome) (Chronic) Autonomic dysfunction (Chronic) HLD (hyperlipidemia) (Chronic) PAD (peripheral artery disease) (Chronic) Coronary artery disease (Chronic) S/P LAD and LCx stenting BPH (benign prostatic hypertrophy) with urinary obstruction (Chronic) Depressive disorder (Chronic) HTN (hypertension) (Chronic) Atrial fibrillation (Chronic) GERD (gastroesophageal reflux disease) (Chronic) History of orchiectomy, unilateral (Chronic) Nephrolithiasis (Chronic) Personality disorder (Chronic) Medical History: Medical History (Last Updated 03/21/18 @ 18:31 by Modesto Mclaughlin DO) CHF (congestive heart failure) (Chronic) I50.9 diastolic Pulmonary hypertension (Chronic) I27.20 Tobacco abuse (Chronic) Z72.0 AAA (abdominal aortic aneurysm) (Chronic) I71.4 PVD (peripheral vascular disease) (Chronic) I73.9 Long-term use of high-risk medication (Chronic) Z79.899 Stage 2 moderate COPD by GOLD classification (Chronic) J44.9 Acute respiratory failure with hypoxia (Chronic) J96.01 Suspected chronic. Acute hypoxia on admission without respiratory failure. ARLENE (obstructive sleep apnea) (Chronic) G47.33 Central sleep apnea (Chronic) G47.31 Cardiomyopathy (Chronic) I42.9 SSS (sick sinus syndrome) (Chronic) I49.5 Autonomic dysfunction (Chronic) G90.9 HLD (hyperlipidemia) (Chronic) E78.5 PAD (peripheral artery disease) (Chronic) I73.9 Coronary artery disease (Chronic) I25.10 S/P LAD and LCx stenting BPH (benign prostatic hypertrophy) with urinary obstruction (Chronic) N40.1, N13.8 Depressive disorder (Chronic) F32.9 HTN (hypertension) (Chronic) I10 Atrial fibrillation (Chronic) I48.91 GERD (gastroesophageal reflux disease) (Chronic) K21.9 Nephrolithiasis (Chronic) Personality disorder (Chronic) F60.9 Allergies Penicillins Allergy (Severe, Verified 04/22/18 16:47) Anaphylaxis adhesive Allergy (Verified 04/22/18 16:47) Rash Sulfa (Sulfonamide Antibiotics) Allergy (Verified 04/22/18 19:01) Rash lactose Adverse Reaction (Unknown, Verified 04/22/18 19:00) GI UPSET diazepam [From Valium] Adverse Reaction (Verified 04/22/18 16:47) hyper opposite effect desired HYPER OPPOSITE EFFECT DESIRED niacin [From Niaspan Extended-Release] Adverse Reaction (Verified 04/22/18 16:47) low bp LOW BP simvastatin Adverse Reaction (Verified 04/22/18 16:47) Pain in joints Home Medications: Ambulatory Orders Medication Instructions Recorded Cyanocobalamin [Vitamin B12] 1 tab PO DAILY 06/18/17 Melatonin 10 mg PO QHS 06/18/17 Omeprazole 20 mg PO DAILY 06/18/17 Vit A/Vit C/Vit E/Zinc/Copper 1 cap PO BID 06/18/17 [Preservision Areds Softgel] Duloxetine HCl 60 mg PO BID 03/16/18 Donepezil HCl [Aricept] 10 mg PO QHS 03/22/18 Pregabalin [Lyrica] 300 mg PO QHS 03/22/18 Tamsulosin HCl [Flomax] 0.4 mg PO DAILY@1730 03/22/18 Finasteride [Proscar] 5 mg PO DAILY #30 tablet 03/30/18 Aspirin E.C. [Ecotrin] 81 mg PO DAILY@0800 04/22/18 Cholecalciferol (VIT D3) [Vitamin 1,000 unit PO DAILY 04/22/18 D3] Oxycodone [Oxyir] 2.5 mg PO Q6H PRN PRN 04/22/18 Rosuvastatin Calcium [Crestor] 5 mg PO DAILY 04/22/18 Senna/Docusate Sodium [Senokot-S] 2 tablet PO BID PRN 04/22/18 Albuterol Aerosols [Ventolin 2.5 mg INHALATION Q2H PRN PRN 04/23/18 Aerosols] vial.neb. Cyclobenzaprine HCl 5 mg PO TID PRN PRN tablet 04/23/18 Ensure Enlive 120 ml PO 4X/DAY 04/23/18 Hydrocodone Bitart/Apap 5-325 1 - 2 tablet PO Q6H PRN PRN tablet 04/23/18 [[place] 5/325] Ipratropium/Albuterol Sulfate 3 ml INHALATION Q6HWA.RT 04/23/18 [Duoneb] Menthol/Lanolin/Calamine/Znox 1 applic TOPICAL 0600,219904/23/18 [Calmoseptine Ointment] Metronidazole [Flagyl] 500 mg PO BID 04/23/18 Mineral Oil/Petrolatum,White 1 applic TOPICAL 0600,0 04/23/18 [Eucerin] Polyethylene Glycol 3350 [Miralax] 17 gm PO DAILY 04/23/18 Surgical History: Surgical History (Last Reviewed 04/22/18 @ 17:26 by BERENICE Wheatley) S/P TURP (status post transurethral resection of prostate) (Resolved) Z90.79 pacemaker implantation (Chronic) generator change History of inguinal hernia repair (Resolved) Z98.890, Z87.19 History of hemorrhoidectomy (Resolved) Z98.890 History of prostatectomy (Resolved) Z98.890, Z90.79 right ochiectomy (Resolved) History of appendectomy (Resolved) Z98.890, Z90.49 S/P PTCA (percutaneous transluminal coronary angioplasty) (Chronic) Z98.61 History of orchiectomy, unilateral (Chronic) Z90.79 Surgical History: angioplasty, appendectomy, cholecystectomy, herniorrhaphy, pacemaker implantation, TURP, - - Prostatectomy. Psychiatric History: Depression, - - Personality disorder. Lives: Spouse/ Significant Other Smoking Status: Current every day smoker Tobacco Use: Cigarettes Alcohol: None Drugs: None - *Family History Paternal Family History: Family History (Last Reviewed 04/22/18 @ 17:26 by BERENICE Wheatley) Father CAD (coronary artery disease) Mother Breast cancer Arthritis CAD (coronary artery disease) Hypertension Sister CVA (cerebral vascular accident) Diabetes Hypertension Son CAD (coronary artery disease) Hypertension History Items: Heart Disease, Renal Disease Sibling Family History: Family History (Last Reviewed 04/22/18 @ 17:26 by BERENICE Wheatley) Father CAD (coronary artery disease) Mother Breast cancer Arthritis CAD (coronary artery disease) Hypertension Sister CVA (cerebral vascular accident) Diabetes Hypertension Son CAD (coronary artery disease) Hypertension History Items: Diabetes, Heart Disease Offspring Family History: Family History (Last Reviewed 04/22/18 @ 17:26 by BERENICE Wheatley) Father CAD (coronary artery disease) Mother Breast cancer Arthritis CAD (coronary artery disease) Hypertension Sister CVA (cerebral vascular accident) Diabetes Hypertension Son CAD (coronary artery disease) Hypertension History Items: Heart Disease Maternal Family History: Family History (Last Reviewed 04/22/18 @ 17:26 by BERENICE Wheatley) Father CAD (coronary artery disease) Mother Breast cancer Arthritis CAD (coronary artery disease) Hypertension Sister CVA (cerebral vascular accident) Diabetes Hypertension Son CAD (coronary artery disease) Hypertension History Items: Cancer, Heart Disease Review of Systems Constitutional: Denies: Chills, Fever, Weight Change HEENT: Denies: Head Aches, Sinus Congestion, Sinus Drainage Cardiovascular: Denies: Chest Pain, Palpitations Respiratory: Denies: Cough, Shortness of breath at rest, Sputum production Gastrointestinal: Denies: Abdominal Pain, Nausea, Vomiting Genitourinary: Denies: Dysuria Musculoskeletal: Denies: Joint Pain, Joint Tenderness Skin: Denies: Rash, Wounds Neurological: Denies: Numbness, Tingling, Focal weakness Psychiatric: Denies: Anxiety, Depression, Homicidal Ideations, Suicidal Ideations Hematologic/ Lymphatic: Denies: Easy Bruising, Easy Bleeding VTE Information - Inpt Only VTE Present on Admission: No VTE Mechan Device Prophylaxis: Knee High NICK Hose VTE Pharm Prophylaxis ordered?: Yes Patient Problems: Active and Suspected Problems (Last Updated 03/21/18 @ 18:31 by Modesto Mclaughlin DO) Fall (Acute) - Physical Exam General: Alert, Oriented x3, Cooperative HEENT: Atraumatic, PERRLA, EOMI, Normocephalic Neck: Supple, No JVD, Negative Carotid Bruits Lungs: Clear to auscultation, Normal air movement Cardiovascular: Regular rate, No murmurs Abdomen: Bowel Sounds Present, Soft, Non Tender Extremities: No edema, Capillary Refill Less than 3 Seconds Skin: No rashes, No breakdown Musculoskeletal: No Tenderness to Palpation of Joints or Extremities Neurological: Cranial nerves II-XII grossly intact Psych/Mental Status: Normal Affect, Appropriate Vital Signs Temp Pulse Resp BP Pulse Ox 96.3 F L 74 20 H 121/63 H 95 04/23/18 15:54 04/23/18 15:54 04/23/18 15:54 04/23/18 15:54 04/23/18 15:54 Oxygen Flow Rate (L/min) 2 Oxygen Delivery Method Nasal Cannula Weight: 74.752 kg Body Mass Index (BMI) 23.6 Assessment/Plan All Active Problems (Last Reviewed 04/22/18 @ 17:26 by Consuelo Clayton NP-C) Fall (Acute) S/P TURP (status post transurethral resection of prostate) (Resolved) History of inguinal hernia repair (Resolved) History of hemorrhoidectomy (Resolved) History of prostatectomy (Resolved) right ochiectomy (Resolved) History of appendectomy (Resolved) 77 year old male with below past medical history hospitalized for fall, admitted to TCU with debility, here for rehabilitation, strengthening, prior to extended care facility placement. * Debility - PT/OT. * Pain - Troy 5/325MG 1 tablet Q6H PRN moderate pain, Oxycodone 2.5MG Q6H PRN severe pain. * Bowel - Miralax 17GM daily, Senna/colace 2 tablets BID, Dulcolax 10MG daily PRN. * Pneumonia vaccination - Administer Prevnar 13 and/or Pneumovax 23 as necessary. * DVT prophylaxis - Lovenox 40MG SC daily. * COPD - Duoneb 3ML Q6HWA, Albuterol 2.5MG Q2H PRN. * Coronary Artery Disease - Aspirin 81MG daily. * Vitamin D deficiency - D3 1000IU daily. * Vitamin B12 deficiency - B12 500MCG daily. * Muscle spasm - Flexeril 5MG TID PRN. * Alzheimer's Disease - Donepezil 10MG QHS. * Chronic pain - Duloxetine 60MG BID. * Nutrition - Ensure Enlive 120ML 4x/day. * BPH - Finasteride 5MG daily, Tamsulosin 0.4MG daily. * Insomnia - Melatonin 10MG QHS. * Skin irritation - Calmoseptine BID bilateral buttocks. * C. Diff prophylaxis - Flagyl 500MG BID. * GERD - Omeprazole 20MG daily. * Neuropathic pain - Lyrica 300MG QHS. * Hyperlipidemia - Rosuvastatin 5MG QHS.
[2018-04-23] MEDS: DULoxetine Hcl 60 MG Capsule PO (18:28)
[2018-04-23] MEDS: Tamsulosin HCl 0.4 MG Capsule PO (18:28)
[2018-04-23] MEDS: metroNIDAZOLE 500 MG Tablet PO (18:28)
[2018-04-23] MEDS: Multivitamin (Healthy Eyes) Capsule 1 CAP PO (18:28)
[2018-04-23] MEDS: Pregabalin 75 MG Capsule 300 MG PO (21:18)
[2018-04-23] MEDS: MELATONIN 10 MG TABLET PO (21:19)
[2018-04-23] MEDS: Donepezil HCl 10 MG Tablet PO (21:20)
[2018-04-23] MEDS: Atorvastatin Calcium 10 MG Tablet PO (21:20)
[2018-04-23] MEDS: Menthol/Lanolin/Calamine/Znox 113 GM Tube 1 APPLIC TOPICAL (21:24)
[2018-04-24] MEDS: DULoxetine Hcl 60 MG Capsule PO ×2 (05:16→17:15)
[2018-04-24] MEDS: Enoxaparin 40 MG/0.4 ML Syringe SC (05:16)
[2018-04-24] MEDS: Cyanocobalamin 500 MCG Tablet PO (05:17)
[2018-04-24] MEDS: Multivitamin (Healthy Eyes) Capsule 1 CAP PO ×2 (05:17→17:15)
[2018-04-24] MEDS: Finasteride 5 MG Tablet PO (05:17)
[2018-04-24] MEDS: Pantoprazole Sodium 20 MG Tablet PO (05:17)
[2018-04-24] MEDS: metroNIDAZOLE 500 MG Tablet PO ×2 (05:18→17:15)
[2018-04-24] MEDS: Menthol/Lanolin/Calamine/Znox 113 GM Tube 1 APPLIC TOPICAL ×2 (05:20→20:58)
[2018-04-24 07:27] LABS: Absolute Lymphocyte Count 0.77 X10^3/ul (0.83-4.51); Absolute Neutrophil Count 6.6 X10^3/uL (2.0-7.7); Basophil# 0.01 X10^3/uL; Basophil% 0.1 % (0-1); Eosinophil# 0.07 X10^3/uL; Eosinophils% 0.8 % (0-5); Hematocrit 48.2 % (40-54); Hemoglobin 14.8 g/dl (13.0-16.5); Lymphocyte # 0.77 X10^3/ul (4.0); Lymphocyte % 9.3 % (19-41); Mean Corp Hgb Conc 30.7 g/gl (32-36); Mean Corpuscular Hgb 26.6 pg (27.0-32.0); Mean Corpuscular Volume 86.5 fL (80-94); Mean Platelet Vol. 10.5 fl (6.2-12.0); Monocyte# 0.78 X10^3/uL; Monocyte% 9.4 % (0-10); Neutrophil # 6.62 X10^3/uL (2.7-7.7); Neutrophil % 80.2 % (47-70); POSITIVE COUNT NO; POSITIVE DIFFERENTIAL NO; POSITIVE MORPHOLOGY NO; Platelet Count 241 K/mm3 (150-450); RBC Distribution Width CV 18.5 % (11.6-14.6); RBC Distribution Width SD 57.9 fl (35.1-43.9); Red Blood Count 5.57 M/mm3 (4.6-6.2); White Blood Count 8.3 K/mm3 (4.4-11.0)
[2018-04-24 07:46] LABS: Anion Gap 10 (5-15); BUN 22 mg/dL (7-18); BUN/Creat Ratio 19.1 RATIO (10-20); Calcium,Total 8.8 mg/dL (8.5-10.1); Chloride 110 mmol/L (98-107); Creatinine, Serum 1.15 mg/dL (0.70-1.30); EST Glomerular Filtration Rate 65 mL/min (>60); Est Glom Filt Rate - Afr Amer 79 mL/min (>60); Estimated Creatinine Clearance 53.78 ml/min; Glucose 78 mg/dL (74-106); Potassium 4.4 mmol/L (3.5-5.1); Sodium Level 139 mmol/L (136-145)
[2018-04-24] MEDS: Aspirin E.C. 81 MG Tablet PO (08:03)
[2018-04-24] MEDS: Tuberculin,Purif.prot.deriv. 50 TU/ML Vial 5 ML ID (10:25)
[2018-04-24 13:51] VITALS: PULSE 78; RESP 20
[2018-04-24] MEDS: Ipratropium/Albuterol Sulfate 3 ML AMPUL.NEB INHALATION (13:52)
[2018-04-24 15:23] VITALS: BP 120/52; PULSE 70; RESP 18; TEMP 36.9; O2SAT 92
[2018-04-24] MEDS: Tamsulosin HCl 0.4 MG Capsule PO (17:16)
[2018-04-24] MEDS: Pregabalin 75 MG Capsule 300 MG PO (20:54)
[2018-04-24] MEDS: MELATONIN 10 MG TABLET PO (20:56)
[2018-04-24] MEDS: Atorvastatin Calcium 10 MG Tablet PO (20:56)
[2018-04-24] MEDS: Donepezil HCl 10 MG Tablet PO (20:58)
[2018-04-25] MEDS: Finasteride 5 MG Tablet PO (05:30)
[2018-04-25] MEDS: Cyanocobalamin 500 MCG Tablet PO (05:30)
[2018-04-25] MEDS: Multivitamin (Healthy Eyes) Capsule 1 CAP PO ×2 (05:30→17:40)
[2018-04-25] MEDS: Enoxaparin 40 MG/0.4 ML Syringe SC (05:31)
[2018-04-25] MEDS: DULoxetine Hcl 60 MG Capsule PO ×2 (05:31→17:40)
[2018-04-25] MEDS: metroNIDAZOLE 500 MG Tablet PO ×2 (05:31→17:40)
[2018-04-25] MEDS: Pantoprazole Sodium 20 MG Tablet PO (05:31)
[2018-04-25] MEDS: Menthol/Lanolin/Calamine/Znox 113 GM Tube 1 APPLIC TOPICAL ×2 (05:33→20:44)
[2018-04-25 06:08] LABS: Absolute Lymphocyte Count 1.05 X10^3/ul (0.83-4.51); Absolute Neutrophil Count 4.5 X10^3/uL (2.0-7.7); Basophil# 0.02 X10^3/uL; Basophil% 0.3 % (0-1); Eosinophil# 0.11 X10^3/uL; Eosinophils% 1.7 % (0-5); Hematocrit 34.2 % (40-54); Hemoglobin 10.4 g/dl (13.0-16.5); Lymphocyte # 1.05 X10^3/ul (4.0); Lymphocyte % 15.8 % (19-41); Mean Corp Hgb Conc 30.4 g/gl (32-36); Mean Corpuscular Volume 85.5 fL (80-94); Mean Platelet Vol. 10.1 fl (6.2-12.0); Monocyte# 0.93 X10^3/uL; Neutrophil % 67.9 % (47-70); Platelet Count 321 K/mm3 (150-450); RBC Distribution Width CV 17.9 % (11.6-14.6); RBC Distribution Width SD 56.4 fl (35.1-43.9); White Blood Count 6.6 K/mm3 (4.4-11.0)
[2018-04-25 06:13] LABS: Anion Gap 9 (5-15); BUN 19 mg/dL (7-18); BUN/Creat Ratio 19.1 RATIO (10-20); Calcium,Total 8.7 mg/dL (8.5-10.1); Chloride 108 mmol/L (98-107); Creatinine, Serum 0.99 mg/dL (0.70-1.30); EST Glomerular Filtration Rate 77 mL/min (>60); Est Glom Filt Rate - Afr Amer 93 mL/min (>60); Estimated Creatinine Clearance 62.47 ml/min; Glucose 92 mg/dL (74-106); Potassium 3.7 mmol/L (3.5-5.1); Sodium Level 144 mmol/L (136-145)
[2018-04-25 06:26] LABS: POSITIVE COUNT NO; POSITIVE DIFFERENTIAL NO; POSITIVE MORPHOLOGY NO
[2018-04-25 06:50] VITALS: PULSE 76; RESP 18; O2SAT 91
[2018-04-25] MEDS: Ipratropium/Albuterol Sulfate 3 ML AMPUL.NEB INHALATION ×2 (06:50→18:38)
--- NOTE | 2018-04-25 08:27 | NURSING ---
Dr. Carlton in to see patient, NO for stool for occult blood and d/c lovenox.
[2018-04-25] MEDS: Aspirin E.C. 81 MG Tablet PO (09:19)
[2018-04-25] MEDS: HYDROcodone Bitartrate/Apap 5/325 Tablet PO (09:28)
--- NOTE | 2018-04-25 13:37 | PCM.PN.RX ---
<Alex Miller Laurie - Last Filed: 04/25/18 13:37> Progress Note - Pharmacy Subjective: TCU Admission Objective: Allergies Penicillins Allergy (Severe, Verified 04/22/18 16:47) Anaphylaxis adhesive Allergy (Verified 04/22/18 16:47) Rash Sulfa (Sulfonamide Antibiotics) Allergy (Verified 04/22/18 19:01) Rash lactose Adverse Reaction (Unknown, Verified 04/22/18 19:00) GI UPSET diazepam [From Valium] Adverse Reaction (Verified 04/22/18 16:47) hyper opposite effect desired HYPER OPPOSITE EFFECT DESIRED niacin [From Niaspan Extended-Release] Adverse Reaction (Verified 04/22/18 16:47) low bp LOW BP simvastatin Adverse Reaction (Verified 04/22/18 16:47) Pain in joints Current Medications Generic Name Dose Route Start Last Admin Trade Name Freq PRN Reason Stop Dose Admin Hydrocodone Bitart/Acetaminophen 1 tablet 04/23/18 17:01 04/25/18 09:28 [place] 5mg-325mg PO 1 tablet Q6H PRN PRN Administration MODERATE PAIN (4-5/10) Albuterol Sulfate 2.5 mg 04/23/18 16:10 Ventolin Aerosols INHALATION Q2H PRN PRN dyspnea, wheezing Albuterol/Ipratropium 3 ml 04/23/18 16:15 04/25/18 12:50 Duoneb INHALATION Not Given Q6HWA.RT BARBI Aspirin 81 mg 04/24/18 08:00 04/25/18 09:19 Ecotrin PO 81 mg DAILY@0800 BARBI Administration Atorvastatin Calcium 10 mg 04/23/18 22:00 04/24/18 20:56 Lipitor PO 10 mg QHS BARBI Administration Bisacodyl 10 mg 04/23/18 17:01 Dulcolax PO DAILY PRN Constipation Calamine/Phenol 1 applic 04/23/18 22:00 04/25/18 05:33 Calmoseptine Ointment TOPICAL 1 applicatio 0600,2200 BARBI Administration Protocol Cholecalciferol 1,000 unit 04/24/18 06:00 04/25/18 05:30 Vitamin D PO 1,000 unit DAILY BAR[facility] Administration Cyanocobalamin 500 mcg 04/24/18 06:00 04/25/18 05:30 Vitamin B12 PO 500 mcg DAILY BAR[facility] Administration Cyclobenzaprine HCl 5 mg 04/23/18 16:10 Cyclobenzaprine Hcl PO TID PRN PRN back strain Donepezil HCl 10 mg 04/23/18 22:00 04/24/18 20:58 Aricept PO 10 mg QHS BAR[facility] Administration Duloxetine HCl 60 mg 04/23/18 18:00 04/25/18 05:31 Cymbalta PO 60 mg BID BARBI Administration Finasteride 5 mg 04/24/18 06:00 04/25/18 05:30 Proscar PO 5 mg DAILY [facility] Administration Melatonin 10 mg 04/23/18 22:00 04/24/18 20:56 Melatonin PO 10 mg QHS [facility] Administration Metronidazole 500 mg 04/23/18 18:00 04/25/18 05:31 Flagyl PO 04/30/18 18:01 500 mg BID BAR[facility] Administration Multi-Ingredient Cream 1 applic 04/24/18 06:00 04/25/18 05:33 Eucerin TOPICAL 1 applicatio 0600,2200 [facility] Administration Multivitamins/Minerals 1 capsule 04/23/18 18:00 04/25/18 05:30 Healthy Eyes PO 1 capsule BID [facility] Administration Nutritional Formula (Lactose Free) 120 ml 04/24/18 17:00 04/25/18 12:00 Ensure Clear PO 120 ml 4X/DAY [facility] Administration Oxycodone HCl 2.5 mg 04/23/18 17:01 Oxyir PO Q6H PRN PRN SEVERE PAIN (6-10/10) Pantoprazole Sodium 20 mg 04/24/18 06:00 04/25/18 05:31 Protonix PO 20 mg DAILY [facility] Administration Polyethylene Glycol 17 gm 04/24/18 06:00 04/25/18 05:29 Miralax PO Not Given DAILY BAR[facility] Pregabalin 300 mg 04/23/18 22:00 04/24/18 20:54 Lyrica PO 300 mg QHS [facility] Administration Senna/Docusate Sodium 2 tablet 04/23/18 18:00 04/25/18 05:29 Senokot-S, Maribel-Colace PO Not Given BID BARBI Tamsulosin HCl 0.4 mg 04/23/18 17:30 04/24/18 17:16 Flomax PO 0.4 mg DAILY@1730 BAR[facility] Administration Problem List (Last Updated 03/21/18 @ 18:31 by Modesto Mclaughlin DO) Fall (Acute) Debility (Chronic) 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) Anxiety (Chronic) Neuropathy (Chronic) Chronic kidney disease (Chronic) Chronic diastolic heart failure (Chronic) COPD (chronic obstructive pulmonary disease) (Chronic) Vital Signs Temp Pulse Resp BP Pulse Ox 98.4 F 76 18 120/52 L 91 04/24/18 15:23 04/25/18 06:50 04/25/18 06:50 04/24/18 15:23 04/25/18 06:50 Oxygen Flow Rate (L/min) 2 Oxygen Delivery Method Room Air Weight: 74.752 kg Body Mass Index (BMI) 23.6 Sodium 144 mmol/L (136-145) 04/25/18 05:10 Potassium 3.7 mmol/L (3.5-5.1) 04/25/18 05:10 Chloride 108 mmol/L (98-107) H 04/25/18 05:10 Carbon Dioxide 27.0 mmol/L (21.0-32.0) 04/25/18 05:10 Anion Gap 9 (5-15) 04/25/18 05:10 BUN 19 mg/dL (7-18) H 04/25/18 05:10 Creatinine 0.99 mg/dL (0.70-1.30) 04/25/18 05:10 Est GFR (MDRD) Af Amer 93 mL/min (>60) 04/25/18 05:10 Est GFR (MDRD) Non-Af 77 mL/min (>60) 04/25/18 05:10 BUN/Creatinine Ratio 19.1 RATIO (10-20) 04/25/18 05:10 Glucose 92 mg/dL (74-106) 04/25/18 05:10 Assessment/Plan: 1) Pain Oxycodone for severe pain, hydrocodone/APAP for moderate pain, cyclobenzaprine for back strain, pregabalin, duloxetine. Continue to monitor prn medication use, daily pain scores. 2) CAD ASA, atorvastatin. Continue to monitor lipids, for chest pain. 3) ID Metronidazole until 04/30. Continue to monitor s/s infection. 4) Pulm Duoneb aerosols scheduled, prn albuterol. Continue to monitor prn medication use, for shortness of breath. 5) Sleep Melatonin at HS. Continue to monitor for insomnia. 6) BPH Finasteride, tamsulosin. Continue to monitor for symptoms. 7) GI Pantoprazole daily. Continue to monitor s/s GI distress. 8) Alzheimer's Donepezil at HS. Continue to monitor clinically. Psychotropic Medications: None Unnecessary Medications: None Bowel Regimen: 9) Senna/s, PEG, prn bisacodyl. Continue to monitor prn medication use, for constipation/diarrhea. Date of Note:: 04/25/18 - Provider Comments Provider responsibility: Provider responsible to enter orders to implement recommendations <Vinny Carlton Chi - Last Filed: 04/25/18 17:55> Progress Note - Pharmacy Subjective: [] Objective: Allergies Penicillins Allergy (Severe, Verified 04/22/18 16:47) Anaphylaxis adhesive Allergy (Verified 04/22/18 16:47) Rash Sulfa (Sulfonamide Antibiotics) Allergy (Verified 04/22/18 19:01) Rash lactose Adverse Reaction (Unknown, Verified 04/22/18 19:00) GI UPSET diazepam [From Valium] Adverse Reaction (Verified 04/22/18 16:47) hyper opposite effect desired HYPER OPPOSITE EFFECT DESIRED niacin [From Niaspan Extended-Release] Adverse Reaction (Verified 04/22/18 16:47) low bp LOW BP simvastatin Adverse Reaction (Verified 04/22/18 16:47) Pain in joints Current Medications Generic Name Dose Route Start Last Admin Trade Name Freq PRN Reason Stop Dose Admin Hydrocodone Bitart/Acetaminophen 1 tablet 04/23/18 17:01 04/25/18 09:28 [place] 5mg-325mg PO 1 tablet Q6H PRN PRN Administration MODERATE PAIN (4-5/10) Albuterol Sulfate 2.5 mg 04/23/18 16:10 Ventolin Aerosols INHALATION Q2H PRN PRN dyspnea, wheezing Albuterol/Ipratropium 3 ml 04/23/18 16:15 04/25/18 12:50 Duoneb INHALATION Not Given Q6HWA.RT BARBI Aspirin 81 mg 04/24/18 08:00 04/25/18 09:19 Ecotrin PO 81 mg DAILY@0800 BARBI Administration Atorvastatin Calcium 10 mg 04/23/18 22:00 04/24/18 20:56 Lipitor PO 10 mg QHS [facility]BI Administration Bisacodyl 10 mg 04/23/18 17:01 Dulcolax PO DAILY PRN Constipation Calamine/Phenol 1 applic 04/23/18 22:00 04/25/18 05:33 Calmoseptine Ointment TOPICAL 1 applicatio 0600,2200 [facility] Administration Protocol Cholecalciferol 1,000 unit 04/24/18 06:00 04/25/18 05:30 Vitamin D PO 1,000 unit DAILY [facility] Administration Cyanocobalamin 500 mcg 04/24/18 06:00 04/25/18 05:30 Vitamin B12 PO 500 mcg DAILY [facility] Administration Cyclobenzaprine HCl 5 mg 04/23/18 16:10 Cyclobenzaprine Hcl PO TID PRN PRN back strain Donepezil HCl 10 mg 04/23/18 22:00 04/24/18 20:58 Aricept PO 10 mg QHS [facility] Administration Duloxetine HCl 60 mg 04/23/18 18:00 04/25/18 17:40 Cymbalta PO 60 mg BID [facility] Administration Finasteride 5 mg 04/24/18 06:00 04/25/18 05:30 Proscar PO 5 mg DAILY [facility] Administration Melatonin 10 mg 04/23/18 22:00 04/24/18 20:56 Melatonin PO 10 mg QHS [facility] Administration Metronidazole 500 mg 04/23/18 18:00 04/25/18 17:40 Flagyl PO 04/30/18 18:01 500 mg BID [facility] Administration Multi-Ingredient Cream 1 applic 04/24/18 06:00 04/25/18 05:33 Eucerin TOPICAL 1 applicatio 599,2200 [facility] Administration Multivitamins/Minerals 1 capsule 04/23/18 18:00 04/25/18 17:40 Healthy Eyes PO 1 capsule BID [facility] Administration Nutritional Formula (Lactose Free) 120 ml 04/24/18 17:00 04/25/18 17:41 Ensure Clear PO Not Given 4X/DAY [facility] Oxycodone HCl 2.5 mg 04/23/18 17:01 Oxyir PO Q6H PRN PRN SEVERE PAIN (6-10/10) Pantoprazole Sodium 20 mg 04/24/18 06:00 04/25/18 05:31 Protonix PO 20 mg DAILY [facility] Administration Polyethylene Glycol 17 gm 04/24/18 06:00 04/25/18 05:29 Miralax PO Not Given DAILY [facility] Pregabalin 300 mg 04/23/18 22:00 04/24/18 20:54 Lyrica PO 300 mg QHS [facility] Administration Senna/Docusate Sodium 2 tablet 04/23/18 18:00 04/25/18 17:41 Senokot-S, Maribel-Colace PO Not Given BID [facility] Tamsulosin HCl 0.4 mg 04/23/18 17:30 04/25/18 17:40 Flomax PO 0.4 mg DAILY@1730 [facility] Administration Problem List (Last Updated 03/21/18 @ 18:31 by Modesto Mclaughlin DO) Fall (Acute) Debility (Chronic) 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) Anxiety (Chronic) Neuropathy (Chronic) Chronic kidney disease (Chronic) Chronic diastolic heart failure (Chronic) COPD (chronic obstructive pulmonary disease) (Chronic) Vital Signs Temp Pulse Resp BP Pulse Ox 99.2 F H 72 18 133/67 H 90 04/25/18 16:00 04/25/18 16:00 04/25/18 16:00 04/25/18 16:00 04/25/18 16:00 Oxygen Flow Rate (L/min) 2 Oxygen Delivery Method Room Air Weight: 74.752 kg Body Mass Index (BMI) 23.6 Sodium 144 mmol/L (136-145) 04/25/18 05:10 Potassium 3.7 mmol/L (3.5-5.1) 04/25/18 05:10 Chloride 108 mmol/L (98-107) H 04/25/18 05:10 Carbon Dioxide 27.0 mmol/L (21.0-32.0) 04/25/18 05:10 Anion Gap 9 (5-15) 04/25/18 05:10 BUN 19 mg/dL (7-18) H 04/25/18 05:10 Creatinine 0.99 mg/dL (0.70-1.30) 04/25/18 05:10 Est GFR (MDRD) Af Amer 93 mL/min (>60) 04/25/18 05:10 Est GFR (MDRD) Non-Af 77 mL/min (>60) 04/25/18 05:10 BUN/Creatinine Ratio 19.1 RATIO (10-20) 04/25/18 05:10 Glucose 92 mg/dL (74-106) 04/25/18 05:10 Assessment/Plan: Psychotropic Medications: Unnecessary Medications: Bowel Regimen: - Provider Comments Provider responsibility: Provider responsible to enter orders to implement recommendations Provider Comments to Recommendations by Pharmacy: Agree
--- NOTE | 2018-04-25 13:43 | PHA.CONS_ITS ---
<Alex Miller Laurie - Last Filed: 04/25/18 13:37> Progress Note - Pharmacy Subjective: TCU Admission Objective: Allergies Penicillins Allergy (Severe, Verified 04/22/18 16:47) Anaphylaxis adhesive Allergy (Verified 04/22/18 16:47) Rash Sulfa (Sulfonamide Antibiotics) Allergy (Verified 04/22/18 19:01) Rash lactose Adverse Reaction (Unknown, Verified 04/22/18 19:00) GI UPSET diazepam [From Valium] Adverse Reaction (Verified 04/22/18 16:47) hyper opposite effect desired HYPER OPPOSITE EFFECT DESIRED niacin [From Niaspan Extended-Release] Adverse Reaction (Verified 04/22/18 16:47) low bp LOW BP simvastatin Adverse Reaction (Verified 04/22/18 16:47) Pain in joints Current Medications Generic Name Dose Route Start Last Admin Trade Name Freq PRN Reason Stop Dose Admin Hydrocodone Bitart/Acetaminophen 1 tablet 04/23/18 17:01 04/25/18 09:28 Irwin 5mg-325mg PO 1 tablet Q6H PRN PRN Administration MODERATE PAIN (4-5/10) Albuterol Sulfate 2.5 mg 04/23/18 16:10 Ventolin Aerosols INHALATION Q2H PRN PRN dyspnea, wheezing Albuterol/Ipratropium 3 ml 04/23/18 16:15 04/25/18 12:50 Duoneb INHALATION Not Given Q6HWA.RT BARBI Aspirin 81 mg 04/24/18 08:00 04/25/18 09:19 Ecotrin PO 81 mg DAILY@0800 BARBI Administration Atorvastatin Calcium 10 mg 04/23/18 22:00 04/24/18 20:56 Lipitor PO 10 mg QHS BARBI Administration Bisacodyl 10 mg 04/23/18 17:01 Dulcolax PO DAILY PRN Constipation Calamine/Phenol 1 applic 04/23/18 22:00 04/25/18 05:33 Calmoseptine Ointment TOPICAL 1 applicatio 0600,2200 BARBI Administration Protocol Cholecalciferol 1,000 unit 04/24/18 06:00 04/25/18 05:30 Vitamin D PO 1,000 unit DAILY BARBI Administration Cyanocobalamin 500 mcg 04/24/18 06:00 04/25/18 05:30 Vitamin B12 PO 500 mcg DAILY BARBI Administration Cyclobenzaprine HCl 5 mg 04/23/18 16:10 Cyclobenzaprine Hcl PO TID PRN PRN back strain Donepezil HCl 10 mg 04/23/18 22:00 04/24/18 20:58 Aricept PO 10 mg QHS BARBI Administration Duloxetine HCl 60 mg 04/23/18 18:00 04/25/18 05:31 Cymbalta PO 60 mg BID BARBI Administration Finasteride 5 mg 04/24/18 06:00 04/25/18 05:30 Proscar PO 5 mg DAILY BARBI Administration Melatonin 10 mg 04/23/18 22:00 04/24/18 20:56 Melatonin PO 10 mg QHS BARBI Administration Metronidazole 500 mg 04/23/18 18:00 04/25/18 05:31 Flagyl PO 04/30/18 18:01 500 mg BID BARBI Administration Multi-Ingredient Cream 1 applic 04/24/18 06:00 04/25/18 05:33 Eucerin TOPICAL 1 applicatio 0600,2200 BARBI Administration Multivitamins/Minerals 1 capsule 04/23/18 18:00 04/25/18 05:30 Healthy Eyes PO 1 capsule BID BARBI Administration Nutritional Formula (Lactose Free) 120 ml 04/24/18 17:00 04/25/18 12:00 Ensure Clear PO 120 ml 4X/DAY BARBI Administration Oxycodone HCl 2.5 mg 04/23/18 17:01 Oxyir PO Q6H PRN PRN SEVERE PAIN (6-10/10) Pantoprazole Sodium 20 mg 04/24/18 06:00 04/25/18 05:31 Protonix PO 20 mg DAILY BARBI Administration Polyethylene Glycol 17 gm 04/24/18 06:00 04/25/18 05:29 Miralax PO Not Given DAILY BARBI Pregabalin 300 mg 04/23/18 22:00 04/24/18 20:54 Lyrica PO 300 mg QHS BARBI Administration Senna/Docusate Sodium 2 tablet 04/23/18 18:00 04/25/18 05:29 Senokot-S, Maribel-Colace PO Not Given BID BARBI Tamsulosin HCl 0.4 mg 04/23/18 17:30 04/24/18 17:16 Flomax PO 0.4 mg DAILY@1730 BARBI Administration Problem List (Last Updated 03/21/18 @ 18:31 by Modesto Mclaughlin DO) Fall (Acute) Debility (Chronic) 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) Anxiety (Chronic) Neuropathy (Chronic) Chronic kidney disease (Chronic) Chronic diastolic heart failure (Chronic) COPD (chronic obstructive pulmonary disease) (Chronic) Vital Signs Temp Pulse Resp BP Pulse Ox 98.4 F 76 18 120/52 L 91 04/24/18 15:23 04/25/18 06:50 04/25/18 06:50 04/24/18 15:23 04/25/18 06:50 Oxygen Flow Rate (L/min) 2 Oxygen Delivery Method Room Air Weight: 74.752 kg Body Mass Index (BMI) 23.6 Sodium 144 mmol/L (136-145) 04/25/18 05:10 Potassium 3.7 mmol/L (3.5-5.1) 04/25/18 05:10 Chloride 108 mmol/L (98-107) H 04/25/18 05:10 Carbon Dioxide 27.0 mmol/L (21.0-32.0) 04/25/18 05:10 Anion Gap 9 (5-15) 04/25/18 05:10 BUN 19 mg/dL (7-18) H 04/25/18 05:10 Creatinine 0.99 mg/dL (0.70-1.30) 04/25/18 05:10 Est GFR (MDRD) Af Amer 93 mL/min (>60) 04/25/18 05:10 Est GFR (MDRD) Non-Af 77 mL/min (>60) 04/25/18 05:10 BUN/Creatinine Ratio 19.1 RATIO (10-20) 04/25/18 05:10 Glucose 92 mg/dL (74-106) 04/25/18 05:10 Assessment/Plan: 1) Pain Oxycodone for severe pain, hydrocodone/APAP for moderate pain, cyclobenzaprine for back strain, pregabalin, duloxetine. Continue to monitor prn medication use, daily pain scores. 2) CAD ASA, atorvastatin. Continue to monitor lipids, for chest pain. 3) ID Metronidazole until 04/30. Continue to monitor s/s infection. 4) Pulm Duoneb aerosols scheduled, prn albuterol. Continue to monitor prn medication use, for shortness of breath. 5) Sleep Melatonin at HS. Continue to monitor for insomnia. 6) BPH Finasteride, tamsulosin. Continue to monitor for symptoms. 7) GI Pantoprazole daily. Continue to monitor s/s GI distress. 8) Alzheimer's Donepezil at HS. Continue to monitor clinically. Psychotropic Medications: None Unnecessary Medications: None Bowel Regimen: 9) Senna/s, PEG, prn bisacodyl. Continue to monitor prn medication use, for constipation/diarrhea. Date of Note:: 04/25/18 - Provider Comments Provider responsibility: Provider responsible to enter orders to implement recommendations <Vinny Carlton Chi - Last Filed: 04/25/18 17:55> Progress Note - Pharmacy Subjective: [] Objective: Allergies Penicillins Allergy (Severe, Verified 04/22/18 16:47) Anaphylaxis adhesive Allergy (Verified 04/22/18 16:47) Rash Sulfa (Sulfonamide Antibiotics) Allergy (Verified 04/22/18 19:01) Rash lactose Adverse Reaction (Unknown, Verified 04/22/18 19:00) GI UPSET diazepam [From Valium] Adverse Reaction (Verified 04/22/18 16:47) hyper opposite effect desired HYPER OPPOSITE EFFECT DESIRED niacin [From Niaspan Extended-Release] Adverse Reaction (Verified 04/22/18 16:47) low bp LOW BP simvastatin Adverse Reaction (Verified 04/22/18 16:47) Pain in joints Current Medications Generic Name Dose Route Start Last Admin Trade Name Freq PRN Reason Stop Dose Admin Hydrocodone Bitart/Acetaminophen 1 tablet 04/23/18 17:01 04/25/18 09:28 Irwin 5mg-325mg PO 1 tablet Q6H PRN PRN Administration MODERATE PAIN (4-5/10) Albuterol Sulfate 2.5 mg 04/23/18 16:10 Ventolin Aerosols INHALATION Q2H PRN PRN dyspnea, wheezing Albuterol/Ipratropium 3 ml 04/23/18 16:15 04/25/18 12:50 Duoneb INHALATION Not Given Q6HWA.RT BARBI Aspirin 81 mg 04/24/18 08:00 04/25/18 09:19 Ecotrin PO 81 mg DAILY@0800 BARBI Administration Atorvastatin Calcium 10 mg 04/23/18 22:00 04/24/18 20:56 Lipitor PO 10 mg QHS BARBI Administration Bisacodyl 10 mg 04/23/18 17:01 Dulcolax PO DAILY PRN Constipation Calamine/Phenol 1 applic 04/23/18 22:00 04/25/18 05:33 Calmoseptine Ointment TOPICAL 1 applicatio 0600,2200 [facility] Administration Protocol Cholecalciferol 1,000 unit 04/24/18 06:00 04/25/18 05:30 Vitamin D PO 1,000 unit DAILY [facility] Administration Cyanocobalamin 500 mcg 04/24/18 06:00 04/25/18 05:30 Vitamin B12 PO 500 mcg DAILY [facility] Administration Cyclobenzaprine HCl 5 mg 04/23/18 16:10 Cyclobenzaprine Hcl PO TID PRN PRN back strain Donepezil HCl 10 mg 04/23/18 22:00 04/24/18 20:58 Aricept PO 10 mg QHS [facility] Administration Duloxetine HCl 60 mg 04/23/18 18:00 04/25/18 17:40 Cymbalta PO 60 mg BID [facility] Administration Finasteride 5 mg 04/24/18 06:00 04/25/18 05:30 Proscar PO 5 mg DAILY [facility] Administration Melatonin 10 mg 04/23/18 22:00 04/24/18 20:56 Melatonin PO 10 mg QHS [facility] Administration Metronidazole 500 mg 04/23/18 18:00 04/25/18 17:40 Flagyl PO 04/30/18 18:01 500 mg BID [facility] Administration Multi-Ingredient Cream 1 applic 04/24/18 06:00 04/25/18 05:33 Eucerin TOPICAL 1 applicatio 599,2200 [facility] Administration Multivitamins/Minerals 1 capsule 04/23/18 18:00 04/25/18 17:40 Healthy Eyes PO 1 capsule BID [facility] Administration Nutritional Formula (Lactose Free) 120 ml 04/24/18 17:00 04/25/18 17:41 Ensure Clear PO Not Given 4X/DAY [facility] Oxycodone HCl 2.5 mg 04/23/18 17:01 Oxyir PO Q6H PRN PRN SEVERE PAIN (6-10/10) Pantoprazole Sodium 20 mg 04/24/18 06:00 04/25/18 05:31 Protonix PO 20 mg DAILY [facility] Administration Polyethylene Glycol 17 gm 04/24/18 06:00 04/25/18 05:29 Miralax PO Not Given DAILY [facility] Pregabalin 300 mg 04/23/18 22:00 04/24/18 20:54 Lyrica PO 300 mg QHS [facility] Administration Senna/Docusate Sodium 2 tablet 04/23/18 18:00 04/25/18 17:41 Senokot-S, Maribel-Colace PO Not Given BID [facility] Tamsulosin HCl 0.4 mg 04/23/18 17:30 04/25/18 17:40 Flomax PO 0.4 mg DAILY@1730 [facility] Administration Problem List (Last Updated 03/21/18 @ 18:31 by Modesto Mclaughlin DO) Fall (Acute) Debility (Chronic) 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) Anxiety (Chronic) Neuropathy (Chronic) Chronic kidney disease (Chronic) Chronic diastolic heart failure (Chronic) COPD (chronic obstructive pulmonary disease) (Chronic) Vital Signs Temp Pulse Resp BP Pulse Ox 99.2 F H 72 18 133/67 H 90 04/25/18 16:00 04/25/18 16:00 04/25/18 16:00 04/25/18 16:00 04/25/18 16:00 Oxygen Flow Rate (L/min) 2 Oxygen Delivery Method Room Air Weight: 74.752 kg Body Mass Index (BMI) 23.6 Sodium 144 mmol/L (136-145) 04/25/18 05:10 Potassium 3.7 mmol/L (3.5-5.1) 04/25/18 05:10 Chloride 108 mmol/L (98-107) H 04/25/18 05:10 Carbon Dioxide 27.0 mmol/L (21.0-32.0) 04/25/18 05:10 Anion Gap 9 (5-15) 04/25/18 05:10 BUN 19 mg/dL (7-18) H 04/25/18 05:10 Creatinine 0.99 mg/dL (0.70-1.30) 04/25/18 05:10 Est GFR (MDRD) Af Amer 93 mL/min (>60) 04/25/18 05:10 Est GFR (MDRD) Non-Af 77 mL/min (>60) 04/25/18 05:10 BUN/Creatinine Ratio 19.1 RATIO (10-20) 04/25/18 05:10 Glucose 92 mg/dL (74-106) 04/25/18 05:10 Assessment/Plan: Psychotropic Medications: Unnecessary Medications: Bowel Regimen: - Provider Comments Provider responsibility: Provider responsible to enter orders to implement recommendations Provider Comments to Recommendations by Pharmacy: Agree
[2018-04-25 16:00] VITALS: BP 133/67; PULSE 72; RESP 18; TEMP 37.3; O2SAT 90
[2018-04-25] MEDS: Tamsulosin HCl 0.4 MG Capsule PO (17:40)
--- NOTE | 2018-04-25 18:17 | NURSING ---
Dr. Carlton reviewed OBS, NNO.
[2018-04-25 18:38] VITALS: PULSE 86; RESP 16; O2SAT 92
[2018-04-25] MEDS: Donepezil HCl 10 MG Tablet PO (20:43)
[2018-04-25] MEDS: MELATONIN 10 MG TABLET PO (20:43)
[2018-04-25] MEDS: Atorvastatin Calcium 10 MG Tablet PO (20:43)
[2018-04-25] MEDS: Pregabalin 75 MG Capsule 300 MG PO (20:44)
[2018-04-26] MEDS: DULoxetine Hcl 60 MG Capsule PO ×2 (05:15→16:56)
[2018-04-26] MEDS: Pantoprazole Sodium 20 MG Tablet PO (05:15)
[2018-04-26] MEDS: metroNIDAZOLE 500 MG Tablet PO ×2 (05:15→16:56)
[2018-04-26] MEDS: Multivitamin (Healthy Eyes) Capsule 1 CAP PO ×2 (05:15→16:56)
[2018-04-26] MEDS: Finasteride 5 MG Tablet PO (05:15)
[2018-04-26] MEDS: Cyanocobalamin 500 MCG Tablet PO (05:15)
[2018-04-26] MEDS: Menthol/Lanolin/Calamine/Znox 113 GM Tube 1 APPLIC TOPICAL ×2 (05:16→20:09)
[2018-04-26 06:22] LABS: Absolute Lymphocyte Count 1.39 X10^3/ul (0.83-4.51); Absolute Neutrophil Count 4.9 X10^3/uL (2.0-7.7); Basophil# 0.02 X10^3/uL; Basophil% 0.3 % (0-1); Eosinophils% 1.3 % (0-5); Hematocrit 36.2 % (40-54); Hemoglobin 11.2 g/dl (13.0-16.5); Lymphocyte # 1.39 X10^3/ul (4.0); Lymphocyte % 18.6 % (19-41); Mean Corp Hgb Conc 30.9 g/gl (32-36); Mean Corpuscular Hgb 26.5 pg (27.0-32.0); Mean Corpuscular Volume 85.6 fL (80-94); Mean Platelet Vol. 10.3 fl (6.2-12.0); Monocyte# 1.01 X10^3/uL; Monocyte% 13.5 % (0-10); Neutrophil # 4.92 X10^3/uL (2.7-7.7); Platelet Count 350 K/mm3 (150-450); RBC Distribution Width SD 55.7 fl (35.1-43.9); Red Blood Count 4.23 M/mm3 (4.6-6.2); White Blood Count 7.5 K/mm3 (4.4-11.0)
[2018-04-26 06:26] LABS: POSITIVE COUNT NO; POSITIVE DIFFERENTIAL NO; POSITIVE MORPHOLOGY NO
[2018-04-26 06:30] LABS: Anion Gap 12 (5-15); BUN 17 mg/dL (7-18); Calcium,Total 8.7 mg/dL (8.5-10.1); Chloride 107 mmol/L (98-107); Creatinine, Serum 1.13 mg/dL (0.70-1.30); EST Glomerular Filtration Rate 66 mL/min (>60); Est Glom Filt Rate - Afr Amer 80 mL/min (>60); Estimated Creatinine Clearance 54.73 ml/min; Glucose 99 mg/dL (74-106); Potassium 3.2 mmol/L (3.5-5.1); Sodium Level 144 mmol/L (136-145)
[2018-04-26 07:03] VITALS: PULSE 77; RESP 18
[2018-04-26] MEDS: Ipratropium/Albuterol Sulfate 3 ML AMPUL.NEB INHALATION ×2 (08:07→13:15)
[2018-04-26] MEDS: Aspirin E.C. 81 MG Tablet PO (08:15)
[2018-04-26] MEDS: HYDROcodone Bitartrate/Apap 5/325 Tablet PO (11:28)
[2018-04-26 13:15] VITALS: PULSE 73; RESP 16
[2018-04-26 16:00] VITALS: BP 111/57; PULSE 52; RESP 20; TEMP 36.5; O2SAT 95
[2018-04-26] MEDS: Tamsulosin HCl 0.4 MG Capsule PO (16:56)
--- NOTE | 2018-04-26 18:14 | RAD_ITS ---
STUDY: X-RAY - ABDOMEN/PELVIS REASON FOR EXAM: Male, 77 years old. Diarrhea TECHNIQUE: AP supine and upright views of the abdomen and pelvis. Images COMPARISON: CT abdomen and pelvis 01/22/2018 FINDINGS: Chronic changes in the left base. Eventrated right hemidiaphragm. Status post cholecystectomy. There is an unremarkable bowel gas pattern. There is no demonstrated free abdominal air. The visualized liver is grossly normal in size and morphology. Normal soft tissue structures. There are diffuse degenerative changes of the visualized lumbar spine and mild levoscoliosis. There is atherosclerosis. RAD/Abd Decub and/or Erect(Portabl IMPRESSION: Normal x-ray examination of the abdomen and pelvis. Electronically Signed: Serina Grant MD at 4:06 EST , Service support ,
[2018-04-26] MEDS: Donepezil HCl 10 MG Tablet PO (20:09)
[2018-04-26] MEDS: Atorvastatin Calcium 10 MG Tablet PO (20:10)
[2018-04-26] MEDS: MELATONIN 10 MG TABLET PO (20:10)
[2018-04-26] MEDS: Pregabalin 75 MG Capsule 300 MG PO (20:13)
[2018-04-26 20:15] VITALS: PULSE 73; O2SAT 97
[2018-04-27] MEDS: Finasteride 5 MG Tablet PO (06:19)
[2018-04-27] MEDS: DULoxetine Hcl 60 MG Capsule PO ×2 (06:19→17:25)
[2018-04-27] MEDS: metroNIDAZOLE 500 MG Tablet PO ×2 (06:19→17:25)
[2018-04-27] MEDS: Pantoprazole Sodium 20 MG Tablet PO (06:19)
[2018-04-27] MEDS: Multivitamin (Healthy Eyes) Capsule 1 CAP PO ×2 (06:19→17:25)
[2018-04-27] MEDS: Cyanocobalamin 500 MCG Tablet PO (06:20)
[2018-04-27] MEDS: Menthol/Lanolin/Calamine/Znox 113 GM Tube 1 APPLIC TOPICAL ×2 (06:21→21:48)
[2018-04-27] MEDS: Aspirin E.C. 81 MG Tablet PO (08:06)
[2018-04-27 09:04] VITALS: PULSE 86; O2SAT 97
--- NOTE | 2018-04-27 09:35 | CASEMGMT ---
Plan of care meeting held. Resident present as well as resident family. No discharge date set at this time. Resident to continue with further care and treatment on the Transitional Care Unit. Resident is now active with Palliative care to continue during stay as well as after discharge. Resident plans to discharge to home with spouse at time of discharge with either home therapy or outpatient. Resident family reporting that [facility] facility in [place] would be resident/resident families first choice for outpatient services at time of discharge. Resident was also active with [facility] prior to hospitalization. Support given. Will continue to follow. LIMA Castle, INSOLE TACKER
--- NOTE | 2018-04-27 10:14 | NURSING ---
DR OLIVEIRA NOTIFIED OF OCCULT STOOL & FECAL WBC LACTOFERRIN STOOL POSITIVE. NO NEW ORDERS AT THIS TIME.
--- NOTE | 2018-04-27 14:01 | NURSING ---
Dr Miranda here from palliative adjusting pt meds at this time
--- NOTE | 2018-04-27 14:02 | PCM.CONS.P ---
History of Present Illness Date of Consult: 04/27/18 Reason for Consult: palliative eval pain diarrhea Requesting physician: []Dr Carlton Primary care physician: Stephanie Fuchs MD - History of Present Illness The patient is a 77 year old M admitted to TCU recently after brief admit to [facility]. Having falls at home and presented to [facility] ER. Scans and xrays with no fx. hx of multiple falls and several trips to [facility]. Has extensive past medical hx. Sees Dr. Lindsey and Dr. Fuchs. Had recent admit to TCU in early march 2018 and was discharged home on a walker. Hx of Alzheimer's dis and COPD as well as ARLENE and cardiac disease with pacer. Asked to see him here in TCU. Staff reports he is progressing with PT/OT. Up with walker. C/o some neck pain constant and leg pain. Recent loose stools and on prophylactic flagyl. Occult blood positive this am. Lactoferrin positive as well. Had colonoscopy yrs ago and none recently. REports appetite is poor recently and he claims he has lost 15 lbs over past few weeks. Using ensure here. Pt is ? accurate historian. Uses bipap at hs and was on O2 earlier this week bu t not now. Unsure if he may have passed out at home and c/o of lightheadedness when up. Meds reviewed. Xarelto had been stopped with risk noted. Also c/o some vague leg pain as well. Been on aricept for some time. Has multiple meds and pacer. REcent mild drop in hgb. No increased edema or SOB but chronic RAGLAND. correction smoker. Denies n/v and does admit to some luq abd pain at times. Ambulating with a walker. Occ vague c/o of chest pain as well. Discussed with pt and staff. Records noted. Concern for complex hx , falls and repeat [facility] trips. In TCU for rehab and hopes to return home. REviewed hx and findins with his by phone and he lives with her. 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) Paroxysmal atrial fibrillation (Chronic) BPH (benign prostatic hyperplasia) (Chronic) Depression (Chronic) Peripheral arterial occlusive disease (Chronic) Alzheimer's disease (Chronic) Neuropathic pain (Chronic) Debility (Chronic) 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 Acute hypoxia on admission without respiratory failure. ARLENE (obstructive sleep apnea) (Chronic) Central sleep apnea (Chronic) S/P PTCA (percutaneous transluminal coronary angioplasty) (Chronic) Cardiomyopathy (Chronic) SSS (sick sinus syndrome) (Chronic) Autonomic dysfunction (Chronic) HLD (hyperlipidemia) (Chronic) PAD (peripheral artery disease) (Chronic) Coronary artery disease (Chronic) S/P LAD and LCx stenting BPH (benign prostatic hypertrophy) with urinary obstruction (Chronic) Depressive disorder (Chronic) HTN (hypertension) (Chronic) Atrial fibrillation (Chronic) GERD (gastroesophageal reflux disease) (Chronic) History of orchiectomy, unilateral (Chronic) Nephrolithiasis (Chronic) Personality disorder (Chronic) Surgical History: angioplasty, appendectomy, cholecystectomy, herniorrhaphy, pacemaker implantation, TURP, - - Prostatectomy. Psychiatric History: Depression, - - Personality disorder. Home Medications: Ambulatory Orders Medication Instructions Recorded Cyanocobalamin [Vitamin B12] 1 tab PO DAILY 06/18/17 Melatonin 10 mg PO QHS 06/18/17 Omeprazole 20 mg PO DAILY 06/18/17 Vit A/Vit C/Vit E/Zinc/Copper 1 cap PO BID 06/18/17 [Preservision Areds Softgel] Duloxetine HCl 60 mg PO BID 03/16/18 Donepezil HCl [Aricept] 10 mg PO QHS 03/22/18 Pregabalin [Lyrica] 300 mg PO QHS 03/22/18 Tamsulosin HCl [Flomax] 0.4 mg PO DAILY@1730 03/22/18 Finasteride [Proscar] 5 mg PO DAILY #30 tablet 03/30/18 Aspirin E.C. [Ecotrin] 81 mg PO DAILY@0800 04/22/18 Cholecalciferol (VIT D3) [Vitamin 1,000 unit PO DAILY 04/22/18 D3] Oxycodone [Oxyir] 2.5 mg PO Q6H PRN PRN 04/22/18 Rosuvastatin Calcium [Crestor] 5 mg PO DAILY 04/22/18 Senna/Docusate Sodium [Senokot-S] 2 tablet PO BID PRN 04/22/18 Albuterol Aerosols [Ventolin 2.5 mg INHALATION Q2H PRN PRN 04/23/18 Aerosols] vial.neb. Cyclobenzaprine HCl 5 mg PO TID PRN PRN tablet 04/23/18 Ensure Enlive 120 ml PO 4X/DAY 04/23/18 Hydrocodone Bitart/Apap 5-325 1 - 2 tablet PO Q6H PRN PRN tablet 04/23/18 [Fombell 5/325] Ipratropium/Albuterol Sulfate 3 ml INHALATION Q6HWA.RT 04/23/18 [Duoneb] Menthol/Lanolin/Calamine/Znox 1 applic TOPICAL 0600,2200 04/23/18 [Calmoseptine Ointment] Metronidazole [Flagyl] 500 mg PO BID 04/23/18 Mineral Oil/Petrolatum,White 1 applic TOPICAL 0600,2200 04/23/18 [Eucerin] Polyethylene Glycol 3350 [Miralax] 17 gm PO DAILY 04/23/18 Allergies Penicillins Allergy (Severe, Verified 04/22/18 16:47) Anaphylaxis adhesive Allergy (Verified 04/22/18 16:47) Rash Sulfa (Sulfonamide Antibiotics) Allergy (Verified 04/22/18 19:01) Rash lactose Adverse Reaction (Unknown, Verified 04/22/18 19:00) GI UPSET diazepam [From Valium] Adverse Reaction (Verified 04/22/18 16:47) hyper opposite effect desired HYPER OPPOSITE EFFECT DESIRED niacin [From Niaspan Extended-Release] Adverse Reaction (Verified 04/22/18 16:47) low bp LOW BP simvastatin Adverse Reaction (Verified 04/22/18 16:47) Pain in joints Paternal Family History: Family History (Last Reviewed 04/22/18 @ 17:26 by BERENICE Wheatley) Father CAD (coronary artery disease) Mother Breast cancer Arthritis CAD (coronary artery disease) Hypertension Sister CVA (cerebral vascular accident) Diabetes Hypertension Son CAD (coronary artery disease) Hypertension History Items: Heart Disease, Renal Disease Sibling Family History: Family History (Last Reviewed 04/22/18 @ 17:26 by BERENICE Wheatley) Father CAD (coronary artery disease) Mother Breast cancer Arthritis CAD (coronary artery disease) Hypertension Sister CVA (cerebral vascular accident) Diabetes Hypertension Son CAD (coronary artery disease) Hypertension History Items: Diabetes, Heart Disease Offspring Family History: Family History (Last Reviewed 04/22/18 @ 17:26 by BERENICE Wheatley) Father CAD (coronary artery disease) Mother Breast cancer Arthritis CAD (coronary artery disease) Hypertension Sister CVA (cerebral vascular accident) Diabetes Hypertension Son CAD (coronary artery disease) Hypertension History Items: Heart Disease Maternal Family History: Family History (Last Reviewed 04/22/18 @ 17:26 by BERENICE Wheatley) Father CAD (coronary artery disease) Mother Breast cancer Arthritis CAD (coronary artery disease) Hypertension Sister CVA (cerebral vascular accident) Diabetes Hypertension Son CAD (coronary artery disease) Hypertension History Items: Cancer, Heart Disease - Social History Lives: Spouse/ Significant Other Smoking Status: Current every day smoker Tobacco Use: Cigarettes Alcohol: None, Occasional Drugs: None - Spiritual Assessment He does not have a nondenominational and lost his congregational over his father's a few yrs ago. Code Status: DNRCC-A Advanced Care Planning: Has a living will and DPOAHC is his per her notation. Retired from [employer] college or university. Continues to smoke. Goals of Care: Hopes to go home with his . Wants to return to some activity. Will stop driving now for time being. PT/OT here and up with walker. concern for bowel symptoms and abd complaints. Agreeable to palliative care and f/u. Ready for hospice if decline and poor prognosis. Review of Systems Constitutional: Reports: Anorexia, Weakness, Weight Change, Fatigue Eyes: Denies: Blurred vision, Double vision, Pain HEENT: Denies: Difficulty Hearing, Difficulty Swallowing, Dysphasia Cardiovascular: Reports: Chest Pain, Palpitations, Syncope. Denies: Claudication, Chest Tightness, Edema, Orthopnea Respiratory: Reports: Shortness of Breath, Shortness of breath upon exertion, - - ARLENE bipap at hs Gastrointestinal: Reports: Abdominal Pain, Diarrhea, Melena. Denies: Vomiting Genitourinary: Reports: Dysuria. Denies: Frequency, Incontinence Musculoskeletal: Reports: Back Pain, Leg Pain, Neck Pain Skin: Denies: Dryness, Jaundice, Pruritis Neurological: Reports: Balance problems. Denies: Blurred vision, Double vision, Difficulty swallowing, Incoordination, Tremor, Seizures Psychiatric: Reports: Depression. Denies: Anxiety Endocrine: Denies: Polydipsia, Polyuria Hematologic/ Lymphatic: Reports: Anemia. Denies: Adenopathy, Purpura Physical Exam Palliative Performance Scale %: 60 General: Alert, Oriented x3, Cooperative, - - memory ? cognitive ? HEENT: Atraumatic, PERRLA, EOMI, Normocephalic Oral: Moist Mucosa Neck: Supple, Trachea Midline, - - rom with pain pedicles tender no spasms Lungs: Clear to auscultation, No wheeze, Short of Breath Cardiovascular: Regular rate, Regular Rhythm, No Gallop, - - paced Abdomen: Bowel Sounds Present, Soft, Hyperactive Bowel Sounds, Tender - tender luq no masses Skin: No rashes, No breakdown Musculoskeletal: No Muscle Wasting, Arthritic Changes, Muscle Wasting, - - legs ache no edema Lymphatic: No Cervical, Supraclavicular, or Inguinal Adenopathy Neurological: Cranial nerves II-XII grossly intact, Deep Tendon Reflexes 2+/4 and Symmetrical, Neuro grossly intact - balance? up with walker Psych/Mental Status: Normal Affect, Appropriate, Depressed Objective: Vital Signs Temp Pulse Resp BP Pulse Ox 97.7 F L 86 20 H 111/57 L 97 04/26/18 16:00 04/27/18 09:04 04/26/18 16:00 04/26/18 16:00 04/27/18 09:04 Oxygen Flow Rate (L/min) 2 Oxygen Delivery Method Room Air Weight: 164 lb 4 oz Body Mass Index (BMI) 23.6 Intake and Output for Last 24 Hours 04/25/18 04/26/18 04/27/18 23:59 23:59 23:59 Intake Total 480 / 480 600 / 600 480 / 480 Balance 480 / 480 600 / 600 480 / 480 Microbiology Past 72 Hours 04/27/18 07:30 Enteric Bacteriology - Final Stool 04/27/18 07:30 Stool Occult Blood (BRIAN) - Final Stool Occult Blood Positive 04/27/18 07:30 Stool Lactoferrin - Final Stool 04/26/18 18:50 C. difficile DNA Amplification - Final Stool 04/25/18 15:35 Stool Occult Blood (BRIAN) - Final Stool Assessment/Plan All Active Problems (Last Reviewed 04/22/18 @ 17:26 by Consuelo Clayton NP-C) Fall (Acute) S/P TURP (status post transurethral resection of prostate) (Resolved) History of inguinal hernia repair (Resolved) History of hemorrhoidectomy (Resolved) History of prostatectomy (Resolved) right ochiectomy (Resolved) History of appendectomy (Resolved) Pt is 77 y/o male with repeated [facility] stays following frequent falls at home and some decline. Has multiple comorbidities and complex medical hx. Includes COPD, ASHD with pacer and ARLENE with resp failure. Hx of Early dementia and now in TCU for rehab. Admitted to TCU from [facility] for debility and rehabilitation. Seems to be progressing with therapies and up with walker. Gaining strength. C/o neck and leg pain. Seems to be chronic and no evidence of fx's but likley OA changes. Concern for recent diarrhea and occult blood positive in stool this am. Come c/o abd pain as well as well as his statement of recent wt loss and loss of appetite. On multiple meds. concern for possible syncope and c/o of lightheadedness as well. Lives with his and his goal is to return home with walker and his 's help. REcommended he not drive now. Hx collaborated with his by phone. Concern for recent and chronic condition burden. Discussed with him and his as well as staff here in TCU. Discharge plan for next week? Has appointment for eval by DR. Jaramillo for pain management on Wednesday and I would keep that as they desire. Will dc some meds including bowel meds and ASA now with heme positive stool this am. Place him on rtc tylenol for his pain and offer prn low dose oxycodone for pain as well. Would recommend GI eval and likely a colonoscopy to r/o colitis, CA, etc.. Continue bipap at hs for ARLENE and prn O2 for SOB. He will continue to smoke. Consider interrogating pacer if not done recently and cardiac f/u as well. Continue to monitor labs, etc.. Feel prognosis is guarded to poor overall depending on recent issues. Concern for recurrent trips to ER and [facility]. Will f/u with palliative care here and at home if dc to home and ECF if disposition. May be eligible for hospice if further decline. Goals are for home care and pain control, comfort and functionality. Jerson lundy need home health as well. Continue DNRCCA. They are agreeable to palliative care f/u. Support and education with him and his by phone. thanks for allowing us to be involved with his care. Will f/u and support.
--- NOTE | 2018-04-27 14:19 | CON.PCM_ITS ---
History of Present Illness Date of Consult: 04/27/18 Reason for Consult: palliative eval pain diarrhea Requesting physician: []Dr Carlton Primary care physician: Stephanie Fuchs MD - History of Present Illness The patient is a 77 year old M admitted to TCU recently after brief admit to [facility]. Having falls at home and presented to [facility] ER. Scans and xrays with no fx. hx of multiple falls and several trips to [facility]. Has extensive past medical hx. Sees Dr. Lindsey and Dr. Fuchs. Had recent admit to TCU in early march 2018 and was discharged home on a walker. Hx of Alzheimer's dis and COPD as well as ARLENE and cardiac disease with pacer. Asked to see him here in TCU. Staff reports he is progressing with PT/OT. Up with walker. C/o some neck pain constant and leg pain. Recent loose stools and on prophylactic flagyl. Occult blood positive this am. Lactoferrin positive as well. Had colonoscopy yrs ago and none recently. REports appetite is poor recently and he claims he has lost 15 lbs over past few weeks. Using ensure here. Pt is ? accurate historian. Uses bipap at hs and was on O2 earlier this week bu t not now. Unsure if he may have passed out at home and c/o of lightheadedness when up. Meds reviewed. Xarelto had been stopped with risk noted. Also c/o some vague leg pain as well. Been on aricept for some time. Has multiple meds and pacer. REcent mild drop in hgb. No increased edema or SOB but chronic RAGLAND. 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 Denies n/v and does admit to some luq abd pain at times. Ambulating with a walker. Occ vague c/o of chest pain as well. Discussed with pt and staff. Records noted. Concern for complex hx , falls and repeat [facility] trips. In TCU for rehab and hopes to return home. REviewed hx and findins with his by phone and he lives with her. 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) Paroxysmal atrial fibrillation (Chronic) BPH (benign prostatic hyperplasia) (Chronic) Depression (Chronic) Peripheral arterial occlusive disease (Chronic) Alzheimer's disease (Chronic) Neuropathic pain (Chronic) Debility (Chronic) 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 Acute hypoxia on admission without respiratory failure. ARLENE (obstructive sleep apnea) (Chronic) Central sleep apnea (Chronic) S/P PTCA (percutaneous transluminal coronary angioplasty) (Chronic) Cardiomyopathy (Chronic) SSS (sick sinus syndrome) (Chronic) Autonomic dysfunction (Chronic) HLD (hyperlipidemia) (Chronic) PAD (peripheral artery disease) (Chronic) Coronary artery disease (Chronic) S/P LAD and LCx stenting BPH (benign prostatic hypertrophy) with urinary obstruction (Chronic) Depressive disorder (Chronic) HTN (hypertension) (Chronic) Atrial fibrillation (Chronic) GERD (gastroesophageal reflux disease) (Chronic) History of orchiectomy, unilateral (Chronic) Nephrolithiasis (Chronic) Personality disorder (Chronic) Surgical History: angioplasty, appendectomy, cholecystectomy, herniorrhaphy, pacemaker implantation, TURP, - - Prostatectomy. Psychiatric History: Depression, - - Personality disorder. Home Medications: Ambulatory Orders Medication Instructions Recorded Cyanocobalamin [Vitamin B12] 1 tab PO DAILY 06/18/17 Melatonin 10 mg PO QHS 06/18/17 Omeprazole 20 mg PO DAILY 06/18/17 Vit A/Vit C/Vit E/Zinc/Copper 1 cap PO BID 06/18/17 [Preservision Areds Softgel] Duloxetine HCl 60 mg PO BID 03/16/18 Donepezil HCl [Aricept] 10 mg PO QHS 03/22/18 Pregabalin [Lyrica] 300 mg PO QHS 03/22/18 Tamsulosin HCl [Flomax] 0.4 mg PO DAILY@1730 03/22/18 Finasteride [Proscar] 5 mg PO DAILY #30 tablet 03/30/18 Aspirin E.C. [Ecotrin] 81 mg PO DAILY@0800 04/22/18 Cholecalciferol (VIT D3) [Vitamin 1,000 unit PO DAILY 04/22/18 D3] Oxycodone [Oxyir] 2.5 mg PO Q6H PRN PRN 04/22/18 Rosuvastatin Calcium [Crestor] 5 mg PO DAILY 04/22/18 Senna/Docusate Sodium [Senokot-S] 2 tablet PO BID PRN 04/22/18 Albuterol Aerosols [Ventolin 2.5 mg INHALATION Q2H PRN PRN 04/23/18 Aerosols] vial.neb. Cyclobenzaprine HCl 5 mg PO TID PRN PRN tablet 04/23/18 Ensure Enlive 120 ml PO 4X/DAY 04/23/18 Hydrocodone Bitart/Apap 5-325 1 - 2 tablet PO Q6H PRN PRN tablet 04/23/18 [[place] 5/325] Ipratropium/Albuterol Sulfate 3 ml INHALATION Q6HWA.RT 04/23/18 [Duoneb] Menthol/Lanolin/Calamine/Znox 1 applic TOPICAL 0600,2200 04/23/18 [Calmoseptine Ointment] Metronidazole [Flagyl] 500 mg PO BID 04/23/18 Mineral Oil/Petrolatum,White 1 applic TOPICAL 0600,2200 04/23/18 [Eucerin] Polyethylene Glycol 3350 [Miralax] 17 gm PO DAILY 04/23/18 Allergies Penicillins Allergy (Severe, Verified 04/22/18 16:47) Anaphylaxis adhesive Allergy (Verified 04/22/18 16:47) Rash Sulfa (Sulfonamide Antibiotics) Allergy (Verified 04/22/18 19:01) Rash lactose Adverse Reaction (Unknown, Verified 04/22/18 19:00) GI UPSET diazepam [From Valium] Adverse Reaction (Verified 04/22/18 16:47) hyper opposite effect desired HYPER OPPOSITE EFFECT DESIRED niacin [From Niaspan Extended-Release] Adverse Reaction (Verified 04/22/18 16:47) low bp LOW BP simvastatin Adverse Reaction (Verified 04/22/18 16:47) Pain in joints Paternal Family History: Family History (Last Reviewed 04/22/18 @ 17:26 by BERENICE Wheatley) Father CAD (coronary artery disease) Mother Breast cancer Arthritis CAD (coronary artery disease) Hypertension Sister CVA (cerebral vascular accident) Diabetes Hypertension Son CAD (coronary artery disease) Hypertension History Items: Heart Disease, Renal Disease Sibling Family History: Family History (Last Reviewed 04/22/18 @ 17:26 by BERENICE Wheatley) Father CAD (coronary artery disease) Mother Breast cancer Arthritis CAD (coronary artery disease) Hypertension Sister CVA (cerebral vascular accident) Diabetes Hypertension Son CAD (coronary artery disease) Hypertension History Items: Diabetes, Heart Disease Offspring Family History: Family History (Last Reviewed 04/22/18 @ 17:26 by BERENICE Wheatley) Father CAD (coronary artery disease) Mother Breast cancer Arthritis CAD (coronary artery disease) Hypertension Sister CVA (cerebral vascular accident) Diabetes Hypertension Son CAD (coronary artery disease) Hypertension History Items: Heart Disease Maternal Family History: Family History (Last Reviewed 04/22/18 @ 17:26 by BERENICE Wheatley) Father CAD (coronary artery disease) Mother Breast cancer Arthritis CAD (coronary artery disease) Hypertension Sister CVA (cerebral vascular accident) Diabetes Hypertension Son CAD (coronary artery disease) Hypertension History Items: Cancer, Heart Disease - Social History Lives: Spouse/ Significant Other Smoking Status: Current every day smoker Tobacco Use: Cigarettes Alcohol: None, Occasional Drugs: None - Spiritual Assessment He does not have a sikh and lost his jain over his father's a few yrs ago. Code Status: DNRCC-A Advanced Care Planning: Has a living will and DPOAHC is his per her notation. 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 Continues to smoke. Goals of Care: Hopes to go home with his . Wants to return to some activity. Will stop driving now for time being. PT/OT here and up with walker. concern for bowel symptoms and abd complaints. Agreeable to palliative care and f/u. Ready for hospice if decline and poor prognosis. Review of Systems Constitutional: Reports: Anorexia, Weakness, Weight Change, Fatigue Eyes: Denies: Blurred vision, Double vision, Pain HEENT: Denies: Difficulty Hearing, Difficulty Swallowing, Dysphasia Cardiovascular: Reports: Chest Pain, Palpitations, Syncope. Denies: Claudication, Chest Tightness, Edema, Orthopnea Respiratory: Reports: Shortness of Breath, Shortness of breath upon exertion, - - ARLENE bipap at hs Gastrointestinal: Reports: Abdominal Pain, Diarrhea, Melena. Denies: Vomiting Genitourinary: Reports: Dysuria. Denies: Frequency, Incontinence Musculoskeletal: Reports: Back Pain, Leg Pain, Neck Pain Skin: Denies: Dryness, Jaundice, Pruritis Neurological: Reports: Balance problems. Denies: Blurred vision, Double vision, Difficulty swallowing, Incoordination, Tremor, Seizures Psychiatric: Reports: Depression. Denies: Anxiety Endocrine: Denies: Polydipsia, Polyuria Hematologic/ Lymphatic: Reports: Anemia. Denies: Adenopathy, Purpura Physical Exam Palliative Performance Scale %: 60 General: Alert, Oriented x3, Cooperative, - - memory ? cognitive ? HEENT: Atraumatic, PERRLA, EOMI, Normocephalic Oral: Moist Mucosa Neck: Supple, Trachea Midline, - - rom with pain pedicles tender no spasms Lungs: Clear to auscultation, No wheeze, Short of Breath Cardiovascular: Regular rate, Regular Rhythm, No Gallop, - - paced Abdomen: Bowel Sounds Present, Soft, Hyperactive Bowel Sounds, Tender - tender luq no masses Skin: No rashes, No breakdown Musculoskeletal: No Muscle Wasting, Arthritic Changes, Muscle Wasting, - - legs ache no edema Lymphatic: No Cervical, Supraclavicular, or Inguinal Adenopathy Neurological: Cranial nerves II-XII grossly intact, Deep Tendon Reflexes 2+/4 and Symmetrical, Neuro grossly intact - balance? up with walker Psych/Mental Status: Normal Affect, Appropriate, Depressed Objective: Vital Signs Temp Pulse Resp BP Pulse Ox 97.7 F L 86 20 H 111/57 L 97 04/26/18 16:00 04/27/18 09:04 04/26/18 16:00 04/26/18 16:00 04/27/18 09:04 Oxygen Flow Rate (L/min) 2 Oxygen Delivery Method Room Air Weight: 164 lb 4 oz Body Mass Index (BMI) 23.6 Intake and Output for Last 24 Hours 04/25/18 04/26/18 04/27/18 23:59 23:59 23:59 Intake Total 480 / 480 600 / 600 480 / 480 Balance 480 / 480 600 / 600 480 / 480 Microbiology Past 72 Hours 04/27/18 07:30 Enteric Bacteriology - Final Stool 04/27/18 07:30 Stool Occult Blood (BRIAN) - Final Stool Occult Blood Positive 04/27/18 07:30 Stool Lactoferrin - Final Stool 04/26/18 18:50 C. difficile DNA Amplification - Final Stool 04/25/18 15:35 Stool Occult Blood (BRIAN) - Final Stool Assessment/Plan All Active Problems (Last Reviewed 04/22/18 @ 17:26 by Consuelo Clayton, MARILYN-C) Fall (Acute) S/P TURP (status post transurethral resection of prostate) (Resolved) History of inguinal hernia repair (Resolved) History of hemorrhoidectomy (Resolved) History of prostatectomy (Resolved) right ochiectomy (Resolved) History of appendectomy (Resolved) Pt is 77 y/o male with repeated [facility] stays following frequent falls at home and some decline. Has multiple comorbidities and complex medical hx. Includes COPD, ASHD with pacer and ARLENE with resp failure. Hx of Early dementia and now in TCU for rehab. Admitted to TCU from [facility] for debility and rehabilitation. Seems to be progressing with therapies and up with walker. Gaining strength. C/o neck and leg pain. Seems to be chronic and no evidence of fx's but l ikley OA changes. Concern for recent diarrhea and occult blood positive in stool this am. Come c/o abd pain as well as well as his statement of recent wt loss and loss of appetite. On multiple meds. concern for possible syncope and c/o of lightheadedness as well. Lives with his and his goal is to return home with walker and his 's help. REcommended he not drive now. Hx collaborated with his by phone. Concern for recent and chronic condition burden. Discussed with him and his as well as staff here in TCU. Discharge plan for next week? Has appointment for eval by DR. Jaramillo for pain management on Wednesday and I would keep that as they desire. Will dc some meds including bowel meds and ASA now with heme positive stool this am. Place him on rtc tylenol for his pain and offer prn low dose oxycodone for pain as well. Would recommend GI eval and likely a colonoscopy to r/o colitis, CA, etc.. Continue bipap at hs for ARLENE and prn O2 for SOB. He will continue to smoke. Consider interrogating pacer if not done recently and cardiac f/u as well. Continue to monitor labs, etc.. Feel prognosis is guarded to poor overall depending on recent issues. Concern for recurrent trips to ER and [facility]. Will f/u with palliative care here and at home if dc to home and ECF if disposition. May be eligible for hospice if further decline. Goals are for home care and pain control, comfort and functionality. Jerson lundy need home health as well. Continue DNRCCA. They are agreeable to palliative care f/u. Support and education with him and his by phone. thanks for allowing us to be involved with his care. Will f/u and support.
[2018-04-27] MEDS: Acetaminophen 325 MG Tablet 650 MG PO ×2 (14:55→21:46)
[2018-04-27 15:34] VITALS: BP 145/75; PULSE 73; RESP 18; TEMP 36.4; O2SAT 95
[2018-04-27] MEDS: Tamsulosin HCl 0.4 MG Capsule PO (17:25)
[2018-04-27 21:00] VITALS: BP 159/77; PULSE 70; RESP 18; TEMP 36.4; O2SAT 96
[2018-04-27] MEDS: Pregabalin 75 MG Capsule 300 MG PO (21:46)
[2018-04-27] MEDS: MELATONIN 10 MG TABLET PO (21:46)
[2018-04-27] MEDS: Atorvastatin Calcium 10 MG Tablet PO (21:46)
[2018-04-27] MEDS: Donepezil HCl 10 MG Tablet PO (21:46)
[2018-04-27 22:52] VITALS: BP 119/59; PULSE 81; RESP 20; O2SAT 93
[2018-04-28] MEDS: Multivitamin (Healthy Eyes) Capsule 1 CAP PO ×2 (05:12→17:08)
[2018-04-28] MEDS: metroNIDAZOLE 500 MG Tablet PO ×2 (05:12→17:08)
[2018-04-28] MEDS: Finasteride 5 MG Tablet PO (05:12)
[2018-04-28] MEDS: Cyanocobalamin 500 MCG Tablet PO (05:12)
[2018-04-28] MEDS: Pantoprazole Sodium 20 MG Tablet PO (05:13)
[2018-04-28] MEDS: DULoxetine Hcl 60 MG Capsule PO ×2 (05:13→17:08)
[2018-04-28] MEDS: Acetaminophen 325 MG Tablet 650 MG PO ×3 (05:16→20:42)
[2018-04-28] MEDS: Menthol/Lanolin/Calamine/Znox 113 GM Tube 1 APPLIC TOPICAL ×2 (05:18→20:43)
--- NOTE | 2018-04-28 05:28 | PCM.CONS.GEN ---
Problem List (1) Stool guaiac positive Status: Acute Reason for Consult Date of Consultation: 04/28/18 History of Present Illness: The patient is a 77 year old M who was recently admitted to the [facility] April 22 - April 23, 2018. Primary reason for admission was debility with frequent falls. Acute hypoxia felt to be secondary to chronic COPD. Chronic atrial fibrillation. Sick sinus syndrome with pacemaker. Chronic diastolic congestive heart failure. Obstructive sleep apnea. Pulmonary hypertension. Dementia. Hypertension. Atherosclerotic coronary vascular disease. Chronic kidney disease stage III. Tobacco dependence. Palliative referral. I have been asked to provide consultation on him by Dr. Miranda and Dr. Carlton for Hemoccult positive stool. Looking back at his laboratory it is apparent that February 2017 his hemoglobin level was 14.7. October 2017 it was 12.8. Then January 22, 2000 1811.3. January 24, 2000 1810.2. And then laboratory throughout the remainder of January and March ranged in the 10 and 11 levels with a low on March 23, 2018 of 9.4. His most recent hemoglobin was 11.2 with a hematocrit of 36.2 on April 26, 2018. Platelet count 350,000. His potassium is low at 3.2. BUN is 17 and a creatinine 1.13. Stool was sent for analysis on April 26 and on April 27. C. difficile was negative. Fecal WBC lactoferrin was positive. Stool for Hemoccult blood was positive on April 27, 2018 however previously on April 25, 2018 the stool was Hemoccult negative. It is of note that his vital signs have been stable he is afebrile. Heart rate is ranged from 73-81. Blood pressure most recently taken was 119/59. The patient states that he has had a remote history of peptic ulcer disease. He thinks he has had a remote upper endoscopy does not recall when. He does not recall when he has had his most recent colonoscopy but he says it was in the past. He denies personal history of colon polyps or colon cancer. The patient states that his appetite is not good. He does not complain of any pain simply that he is not interested in eating. On his previous recent hospitalization he received subcu heparin. He also is on aspirin. He was initiated on metronidazole. Pantoprazole has been given. With the Hemoccult positive stool the aspirin was stopped. 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 Acute hypoxia on admission without respiratory failure. ARLENE (obstructive sleep apnea) (Chronic) Central sleep apnea (Chronic) S/P PTCA (percutaneous transluminal coronary angioplasty) (Chronic) Cardiomyopathy (Chronic) SSS (sick sinus syndrome) (Chronic) Autonomic dysfunction (Chronic) HLD (hyperlipidemia) (Chronic) PAD (peripheral artery disease) (Chronic) Coronary artery disease (Chronic) S/P LAD and LCx stenting BPH (benign prostatic hypertrophy) with urinary obstruction (Chronic) Depressive disorder (Chronic) HTN (hypertension) (Chronic) Atrial fibrillation (Chronic) GERD (gastroesophageal reflux disease) (Chronic) History of orchiectomy, unilateral (Chronic) Nephrolithiasis (Chronic) Personality disorder (Chronic) Medical History: Medical History (Last Updated 03/21/18 @ 18:31 by Modesto Mclaughlin DO) CHF (congestive heart failure) (Chronic) I50.9 diastolic Pulmonary hypertension (Chronic) I27.20 Tobacco abuse (Chronic) Z72.0 AAA (abdominal aortic aneurysm) (Chronic) I71.4 PVD (peripheral vascular disease) (Chronic) I73.9 Long-term use of high-risk medication (Chronic) Z79.899 Stage 2 moderate COPD by GOLD classification (Chronic) J44.9 Acute respiratory failure with hypoxia (Chronic) J96.01 Suspected chronic. Acute hypoxia on admission without respiratory failure. ARLENE (obstructive sleep apnea) (Chronic) G47.33 Central sleep apnea (Chronic) G47.31 Cardiomyopathy (Chronic) I42.9 SSS (sick sinus syndrome) (Chronic) I49.5 Autonomic dysfunction (Chronic) G90.9 HLD (hyperlipidemia) (Chronic) E78.5 PAD (peripheral artery disease) (Chronic) I73.9 Coronary artery disease (Chronic) I25.10 S/P LAD and LCx stenting BPH (benign prostatic hypertrophy) with urinary obstruction (Chronic) N40.1, N13.8 Depressive disorder (Chronic) F32.9 HTN (hypertension) (Chronic) I10 Atrial fibrillation (Chronic) I48.91 GERD (gastroesophageal reflux disease) (Chronic) K21.9 Nephrolithiasis (Chronic) Personality disorder (Chronic) F60.9 Allergies Penicillins Allergy (Severe, Verified 04/22/18 16:47) Anaphylaxis adhesive Allergy (Verified 04/22/18 16:47) Rash Sulfa (Sulfonamide Antibiotics) Allergy (Verified 04/22/18 19:01) Rash lactose Adverse Reaction (Unknown, Verified 04/22/18 19:00) GI UPSET diazepam [From Valium] Adverse Reaction (Verified 04/22/18 16:47) hyper opposite effect desired HYPER OPPOSITE EFFECT DESIRED niacin [From Niaspan Extended-Release] Adverse Reaction (Verified 04/22/18 16:47) low bp LOW BP simvastatin Adverse Reaction (Verified 04/22/18 16:47) Pain in joints Home Medications: Ambulatory Orders Medication Instructions Recorded Cyanocobalamin [Vitamin B12] 1 tab PO DAILY 06/18/17 Melatonin 10 mg PO QHS 06/18/17 Omeprazole 20 mg PO DAILY 06/18/17 Vit A/Vit C/Vit E/Zinc/Copper 1 cap PO BID 06/18/17 [Preservision Areds Softgel] Duloxetine HCl 60 mg PO BID 03/16/18 Donepezil HCl [Aricept] 10 mg PO QHS 03/22/18 Pregabalin [Lyrica] 300 mg PO QHS 03/22/18 Tamsulosin HCl [Flomax] 0.4 mg PO DAILY@1730 03/22/18 Finasteride [Proscar] 5 mg PO DAILY #30 tablet 03/30/18 Aspirin E.C. [Ecotrin] 81 mg PO DAILY@0800 04/22/18 Cholecalciferol (VIT D3) [Vitamin 1,000 unit PO DAILY 04/22/18 D3] Oxycodone [Oxyir] 2.5 mg PO Q6H PRN PRN 04/22/18 Rosuvastatin Calcium [Crestor] 5 mg PO DAILY 04/22/18 Senna/Docusate Sodium [Senokot-S] 2 tablet PO BID PRN 04/22/18 Albuterol Aerosols [Ventolin 2.5 mg INHALATION Q2H PRN PRN 04/23/18 Aerosols] vial.neb. Cyclobenzaprine HCl 5 mg PO TID PRN PRN tablet 04/23/18 Ensure Enlive 120 ml PO 4X/DAY 04/23/18 Hydrocodone Bitart/Apap 5-325 1 - 2 tablet PO Q6H PRN PRN tablet 04/23/18 [[place] 5/325] Ipratropium/Albuterol Sulfate 3 ml INHALATION Q6HWA.RT 04/23/18 [Duoneb] Menthol/Lanolin/Calamine/Znox 1 applic TOPICAL 0600,0 04/23/18 [Calmoseptine Ointment] Metronidazole [Flagyl] 500 mg PO BID 04/23/18 Mineral Oil/Petrolatum,White 1 applic TOPICAL 0600,2200 04/23/18 [Eucerin] Polyethylene Glycol 3350 [Miralax] 17 gm PO DAILY 04/23/18 Surgical History: Surgical History (Last Reviewed 04/22/18 @ 17:26 by Consuelo Clayton NP-C) S/P TURP (status post transurethral resection of prostate) (Resolved) Z90.79 pacemaker implantation (Chronic) generator change History of inguinal hernia repair (Resolved) Z98.890, Z87.19 History of hemorrhoidectomy (Resolved) Z98.890 History of prostatectomy (Resolved) Z98.890, Z90.79 right ochiectomy (Resolved) History of appendectomy (Resolved) Z98.890, Z90.49 S/P PTCA (percutaneous transluminal coronary angioplasty) (Chronic) Z98.61 History of orchiectomy, unilateral (Chronic) Z90.79 Surgical History: angioplasty, appendectomy, cholecystectomy, herniorrhaphy, pacemaker implantation, TURP, - - Prostatectomy. Psychiatric History: Depression, - - Personality disorder. Lives: Spouse/ Significant Other Smoking Status: Current every day smoker Tobacco Use: Cigarettes Alcohol: None, Occasional Drugs: None - *Family History Paternal Family History: Family History (Last Reviewed 04/22/18 @ 17:26 by BERENICE Wheatley) Father CAD (coronary artery disease) Mother Breast cancer Arthritis CAD (coronary artery disease) Hypertension Sister CVA (cerebral vascular accident) Diabetes Hypertension Son CAD (coronary artery disease) Hypertension History Items: Heart Disease, Renal Disease Sibling Family History: Family History (Last Reviewed 04/22/18 @ 17:26 by BERENICE Wheatley) Father CAD (coronary artery disease) Mother Breast cancer Arthritis CAD (coronary artery disease) Hypertension Sister CVA (cerebral vascular accident) Diabetes Hypertension Son CAD (coronary artery disease) Hypertension History Items: Diabetes, Heart Disease Offspring Family History: Family History (Last Reviewed 04/22/18 @ 17:26 by BERENICE Wheatley) Father CAD (coronary artery disease) Mother Breast cancer Arthritis CAD (coronary artery disease) Hypertension Sister CVA (cerebral vascular accident) Diabetes Hypertension Son CAD (coronary artery disease) Hypertension History Items: Heart Disease Maternal Family History: Family History (Last Reviewed 04/22/18 @ 17:26 by BERENICE Wheatley) Father CAD (coronary artery disease) Mother Breast cancer Arthritis CAD (coronary artery disease) Hypertension Sister CVA (cerebral vascular accident) Diabetes Hypertension Son CAD (coronary artery disease) Hypertension History Items: Cancer, Heart Disease Review of Systems Constitutional: Reports: Anorexia, Malaise, Weakness, Weight Change - He claims approximately 10 pound weight loss in a month and a half. Denies: Chills, Fever, Night Sweats Eyes: Denies: Blurred vision Cardiovascular: Denies: Chest Pain Respiratory: Denies: Cough Gastrointestinal: Denies: Abdominal Pain, Vomiting Skin: Denies: Jaundice Neurological: Reports: Balance problems Endocrine: Reports: Change in Body Habitus Patient Problems: Active and Suspected Problems (Last Updated 03/21/18 @ 18:31 by Modesto Mclaughlin DO) Fall (Acute) Stool guaiac positive (Acute) - Physical Exam General: Alert, Oriented x3, Cooperative, No apparent distress HEENT: Atraumatic Oral: Moist Mucosa Neck: Supple Lungs: Clear to auscultation Cardiovascular: Regular rate, Regular Rhythm Abdomen: Bowel Sounds Present, Soft, Non Tender, Non-Distended - Well-healed oblique appendectomy incision right lower quadrant., No Hepato-splenomegaly, - - Ecchymosis from previous heparin injections right lower quadrant Extremities: No Calf Tenderness Psych/Mental Status: Normal Affect Vital Signs Temp Pulse Resp BP Pulse Ox 97.6 F L 81 20 H 119/59 L 93 04/27/18 21:00 04/27/18 22:52 04/27/18 22:52 04/27/18 22:52 04/27/18 22:52 Oxygen Flow Rate (L/min) 2 Oxygen Delivery Method Room Air Weight: 164 lb 4 oz Body Mass Index (BMI) 23.6 Intake and Output for Last 24 Hours 04/26/18 04/27/18 04/28/18 23:59 23:59 23:59 Intake Total 600 / 600 600 / 600 Balance 600 / 600 600 / 600 Microbiology Past 72 Hours 04/27/18 07:30 Enteric Bacteriology - Final Stool 04/27/18 07:30 Stool Occult Blood (BRIAN) - Final Stool Occult Blood Positive 04/27/18 07:30 Stool Lactoferrin - Final Stool 04/26/18 18:50 C. difficile DNA Amplification - Final Stool 04/25/18 15:35 Stool Occult Blood (BRIAN) - Final Stool Assessment/Plan All Active Problems (Last Reviewed 04/22/18 @ 17:26 by BERENICE Wheatley) Fall (Acute) Stool guaiac positive (Acute) S/P TURP (status post transurethral resection of prostate) (Resolved) History of inguinal hernia repair (Resolved) History of hemorrhoidectomy (Resolved) History of prostatectomy (Resolved) right ochiectomy (Resolved) History of appendectomy (Resolved) 77-year-old gentleman whose had a relative anemia since early January 2018. He does not appear to be any current distress. He claims a remote history of peptic ulcer disease. He cannot recall his previous colonoscopy. Stool analysis findings positive for WBC lactoferrin and he was placed on metronidazole per pharmacy recommendations April 25 stool Hemoccult was negative. April 27 stool Hemoccult was positive. The hemoglobin level on April 24 of 14.8 must be an error as on April 23 his hemoglobin level was 10.2 and on April 25 his hemoglobin was 10.4 At this point the patient does not appear to be in acute distress. He probably has a degree of anemia of chronic disease. He has a very benign abdomen on clinical exam. We can certainly pursue a esophagogastroduodenoscopy with possible biopsy combined with a colonoscopy with possible biopsy or polypectomy as indicated. He is aware of technique, benefits, risks, alternatives. He has had an opportunity to ask and have questions answered. As noted he does not appear to be currently in distress and I will add him to my routine endoscopy day on Wednesday. I appreciate the opportunity of assisting with her surgical care. Cc: Dr. Miranda and Dr. Brandt iGron M.D., F.A.C.S.
[2018-04-28 06:37] LABS: Anion Gap 9 (5-15); BUN 14 mg/dL (7-18); BUN/Creat Ratio 14.1 RATIO (10-20); Calcium,Total 8.8 mg/dL (8.5-10.1); Chloride 109 mmol/L (98-107); EST Glomerular Filtration Rate 77 mL/min (>60); Est Glom Filt Rate - Afr Amer 93 mL/min (>60); Estimated Creatinine Clearance 61.85 ml/min; Glucose 85 mg/dL (74-106); Potassium 3.4 mmol/L (3.5-5.1); Sodium Level 145 mmol/L (136-145)
--- NOTE | 2018-04-28 10:28 | MDS.RN ---
Pain interview for amy 04/30/18 completed.
[2018-04-28 15:08] VITALS: BP 132/71; PULSE 73; RESP 16; TEMP 36.3; O2SAT 93
[2018-04-28] MEDS: Tamsulosin HCl 0.4 MG Capsule PO (17:08)
[2018-04-28] MEDS: Atorvastatin Calcium 10 MG Tablet PO (20:41)
[2018-04-28] MEDS: Donepezil HCl 10 MG Tablet PO (20:41)
[2018-04-28] MEDS: MELATONIN 10 MG TABLET PO (20:41)
[2018-04-28] MEDS: Pregabalin 75 MG Capsule 300 MG PO (20:42)
[2018-04-29] MEDS: DULoxetine Hcl 60 MG Capsule PO ×2 (05:12→16:45)
[2018-04-29] MEDS: Finasteride 5 MG Tablet PO (05:12)
[2018-04-29] MEDS: Pantoprazole Sodium 20 MG Tablet PO (05:12)
[2018-04-29] MEDS: Cyanocobalamin 500 MCG Tablet PO (05:12)
[2018-04-29] MEDS: metroNIDAZOLE 500 MG Tablet PO ×2 (05:12→16:45)
[2018-04-29] MEDS: Acetaminophen 325 MG Tablet 650 MG PO ×3 (05:12→21:00)
[2018-04-29] MEDS: Multivitamin (Healthy Eyes) Capsule 1 CAP PO ×2 (05:12→16:45)
[2018-04-29] MEDS: Menthol/Lanolin/Calamine/Znox 113 GM Tube 1 APPLIC TOPICAL ×2 (05:13→21:02)
--- NOTE | 2018-04-29 11:26 | NURSING ---
consent obtained from for EGD and colonoscopy on Wed05/03/18
--- NOTE | 2018-04-29 11:55 | VDLE_ITS ---
Reason For Study: PAIN RIGHT LEFT GSV is normal. GSV is normal. CFV is compressible, spontaneous, phasic, CFV is compressible, spontaneous, phasic, competent and demonstrates normal competent, and demonstrates normal augmentation. augmentation. FV is compressible, spontaneous, phasic, FV is compressible, spontaneous, phasic, competent and demonstrates normal competent and demonstrates normal augmentation. augmentation. POP V is compressible, spontaneous, phasic, POP V is compressible, spontaneous, phasic, competent and demonstrates normal competent and demonstrates normal augmentation. augmentation. T/P Trunk is compressible. T/P Trunk is compressible. RT PerV is compressible. LT PerV is compressible. Rt PTV is NONCOMPRESSIBLE at mid calf only There is a NONVASCULARIZED MIXED ECHOIC with echoes consistent with chronic DVT. STRUCTURE extending from the Popliteal space There is a nonvascularized structure with to the ankle . mixed echoes located in the Popliteal space measuring 3.8 x 2.0 cm. Interpretation Summary Chronic venous changes are noted in the right posterior tibial vein, which is non-compressible and demonstrates bright intraluminal echogenicity. The remainder of the right lower extremity deep venous system is patent and compressible. Deep veins of the left lower extremity are patent and compressible segmentally. There is no evidence of left lower extremity deep vein thrombosis. Valvular competence appears intact within the proximal deep venous systems bilaterally. The greater saphenous veins appear bilaterally patent and compressible segmentally. Non-vascular, heterogeneous structures are noted in the popliteal spaces bilaterally, which may represent popliteal cysts, with possible rupture. Clinical correlation is advised. Ordering Physician: Vinny Carlton Referring Physician: ROBINSON SIEGEL Performed By: Fabiana Gomez, SRAVANICS, RVT
--- NOTE | 2018-04-29 11:57 | NURSING ---
Addendum entered by Sarah Coronel 04/29/18 16:34: DOPPLER RESULTS BACK, DR CARLTON REVIEWED. NEW ORDER TO REPEAT NEXT WEDNESDAY. Original Note: when pt up to BR, pt very lightheaded/weak, needed to sit at sink. also c/o lt calf pain, edema noted, no redness. positive homans sign. BP 79/49 HR 78, Dr Carlton updated, new order doppler BLE's, recheck HGB today, 0.9 NS at 60cc/hr x1 liter.
--- NOTE | 2018-04-29 12:08 | CASEMGMT ---
Brief interview for mental status (BIMS) and resident mood interview (PHQ-9) completed on this day. BIMS score 13/15. PHQ-9 score 09/12
--- NOTE | 2018-04-29 12:23 | NURSING ---
Attempted x2 to start iv, unsuccessful, JULIUS Smith notified to try.
[2018-04-29 13:00] LABS: Hemoglobin 11.7 g/dl (13.0-16.5)
--- NOTE | 2018-04-29 15:05 | NURSING ---
CANCELLED APPT WITH DR SHULTZ FOR PAIN MANT, BUT PT SEEING PALLIATIVE CARE FOR PAIN
[2018-04-29 15:28] VITALS: BP 138/78; PULSE 70; RESP 16; TEMP 36; O2SAT 97
[2018-04-29] MEDS: 0.9% Normal Saline 1,000 ML 60 ML IV (16:43)
[2018-04-29] MEDS: Tamsulosin HCl 0.4 MG Capsule PO (16:46)
[2018-04-29] MEDS: MELATONIN 10 MG TABLET PO (21:00)
[2018-04-29] MEDS: Pregabalin 75 MG Capsule 300 MG PO (21:00)
[2018-04-29] MEDS: Atorvastatin Calcium 10 MG Tablet PO (21:00)
[2018-04-29] MEDS: Donepezil HCl 10 MG Tablet PO (21:00)
[2018-04-30] MEDS: Acetaminophen 325 MG Tablet 650 MG PO ×3 (05:02→21:21)
[2018-04-30] MEDS: metroNIDAZOLE 500 MG Tablet PO ×2 (05:02→16:34)
[2018-04-30] MEDS: DULoxetine Hcl 60 MG Capsule PO ×2 (05:02→16:34)
[2018-04-30] MEDS: Multivitamin (Healthy Eyes) Capsule 1 CAP PO ×2 (05:02→16:34)
[2018-04-30] MEDS: Finasteride 5 MG Tablet PO (05:02)
[2018-04-30] MEDS: Pantoprazole Sodium 20 MG Tablet PO (05:02)
[2018-04-30] MEDS: Cyanocobalamin 500 MCG Tablet PO (05:02)
[2018-04-30] MEDS: Menthol/Lanolin/Calamine/Znox 113 GM Tube 1 APPLIC TOPICAL ×2 (05:05→21:27)
[2018-04-30 11:34] VITALS: BP 106/50; PULSE 69
[2018-04-30] MEDS: 0.9% NaCl Peripheral Flush Adult/Peds IV (12:59)
--- NOTE | 2018-04-30 15:18 | NURSING ---
Pt still having c/o mild dizzyness, BP 106/50 after completion of IVF. Dr. Carlton updated, NO for 1L bolus NS.
[2018-04-30] MEDS: 0.9% Normal Saline 1,000 ML 500 ML IV (15:48)
[2018-04-30 16:00] VITALS: BP 96/59; PULSE 82; RESP 18; TEMP 36.3; O2SAT 94
[2018-04-30] MEDS: Tamsulosin HCl 0.4 MG Capsule PO (16:33)
[2018-04-30] MEDS: MELATONIN 10 MG TABLET PO (21:21)
[2018-04-30] MEDS: Donepezil HCl 10 MG Tablet PO (21:21)
[2018-04-30] MEDS: Atorvastatin Calcium 10 MG Tablet PO (21:21)
[2018-04-30] MEDS: Pregabalin 75 MG Capsule 300 MG PO (21:21)
[2018-05-01] MEDS: Menthol/Lanolin/Calamine/Znox 113 GM Tube 1 APPLIC TOPICAL ×2 (04:11→21:10)
[2018-05-01] MEDS: Multivitamin (Healthy Eyes) Capsule 1 CAP PO ×2 (04:12→16:18)
[2018-05-01] MEDS: Pantoprazole Sodium 20 MG Tablet PO (04:12)
[2018-05-01] MEDS: Finasteride 5 MG Tablet PO (04:12)
[2018-05-01] MEDS: DULoxetine Hcl 60 MG Capsule PO ×2 (04:12→16:19)
[2018-05-01] MEDS: Cyanocobalamin 500 MCG Tablet PO (04:13)
[2018-05-01] MEDS: Acetaminophen 325 MG Tablet 650 MG PO ×3 (04:13→21:06)
--- NOTE | 2018-05-01 14:52 | NURSING ---
Pt has a large, firm lump to right popliteal area. Mild pain on palpation. Extremity warm and pink, pedal pulses 2+. Dr. Carlton updated, NO for warm compresses to area every shift.
[2018-05-01 15:44] VITALS: BP 143/77; PULSE 78; RESP 16; TEMP 36.4; O2SAT 96
[2018-05-01] MEDS: Tamsulosin HCl 0.4 MG Capsule PO (16:18)
[2018-05-01] MEDS: MELATONIN 10 MG TABLET PO (21:06)
[2018-05-01] MEDS: Atorvastatin Calcium 10 MG Tablet PO (21:06)
[2018-05-01] MEDS: Donepezil HCl 10 MG Tablet PO (21:06)
[2018-05-01] MEDS: Pregabalin 75 MG Capsule 300 MG PO (21:06)
[2018-05-02] MEDS: Pantoprazole Sodium 20 MG Tablet PO (05:37)
[2018-05-02] MEDS: Cyanocobalamin 500 MCG Tablet PO (05:37)
[2018-05-02] MEDS: Acetaminophen 325 MG Tablet 650 MG PO ×3 (05:37→20:54)
[2018-05-02] MEDS: Multivitamin (Healthy Eyes) Capsule 1 CAP PO ×2 (05:37→17:12)
[2018-05-02] MEDS: Finasteride 5 MG Tablet PO (05:37)
[2018-05-02] MEDS: DULoxetine Hcl 60 MG Capsule PO ×2 (05:38→17:12)
[2018-05-02] MEDS: Menthol/Lanolin/Calamine/Znox 113 GM Tube 1 APPLIC TOPICAL ×2 (05:39→20:55)
[2018-05-02] MEDS: Electrolyte Solution/Peg's 4000 ML PO (07:06)
[2018-05-02 09:08] VITALS: BP 78/47; PULSE 81
--- NOTE | 2018-05-02 09:09 | NURSING ---
Pt started golytely this AM as ordered for upper/lower scope tomorrow. Pt lightheaded, weak w/transfer to BR. BP 78/47, HR 81. Assisted back from BR in recliner chair. Call light in reach. more golytely added to cup.
--- NOTE | 2018-05-02 11:47 | NURSING ---
Resident up on toilet. He has completed his 4000ml of golytely at this time.
[2018-05-02] MEDS: 0.9% NaCl Peripheral Flush Adult/Peds IV (15:45)
[2018-05-02 16:00] VITALS: BP 140/83; PULSE 72; RESP 20; TEMP 36.6; O2SAT 96
[2018-05-02] MEDS: Tamsulosin HCl 0.4 MG Capsule PO (17:12)
[2018-05-02] MEDS: Donepezil HCl 10 MG Tablet PO (20:52)
[2018-05-02] MEDS: MELATONIN 10 MG TABLET PO (20:52)
[2018-05-02] MEDS: Pregabalin 75 MG Capsule 300 MG PO (20:53)
[2018-05-02] MEDS: Atorvastatin Calcium 10 MG Tablet PO (20:53)
[2018-05-03] MEDS: Pantoprazole Sodium 20 MG Tablet PO (04:47)
[2018-05-03 06:00] LABS: Anion Gap 10 (5-15); BUN 11 mg/dL (7-18); BUN/Creat Ratio 8.8 RATIO (10-20); Calcium,Total 8.5 mg/dL (8.5-10.1); Chloride 106 mmol/L (98-107); Creatinine, Serum 1.25 mg/dL (0.70-1.30); EST Glomerular Filtration Rate 59 mL/min (>60); Est Glom Filt Rate - Afr Amer 72 mL/min (>60); Estimated Creatinine Clearance 49.48 ml/min; Glucose 90 mg/dL (74-106); Potassium 3.1 mmol/L (3.5-5.1); Sodium Level 143 mmol/L (136-145)
[2018-05-03 06:24] LABS: Absolute Neutrophil Count 5.8 X10^3/uL (2.0-7.7); Basophil# 0.02 X10^3/uL; Basophil% 0.2 % (0-1); Eosinophil# 0.07 X10^3/uL; Eosinophils% 0.9 % (0-5); Hemoglobin 11.6 g/dl (13.0-16.5); Lymphocyte % 13.7 % (19-41); Mean Corp Hgb Conc 30.5 g/gl (32-36); Mean Corpuscular Hgb 25.9 pg (27.0-32.0); Mean Corpuscular Volume 84.8 fL (80-94); Mean Platelet Vol. 10.5 fl (6.2-12.0); Monocyte% 12.5 % (0-10); Neutrophil # 5.78 X10^3/uL (2.7-7.7); Neutrophil % 72.2 % (47-70); Platelet Count 289 K/mm3 (150-450); RBC Distribution Width CV 18.3 % (11.6-14.6); RBC Distribution Width SD 56.8 fl (35.1-43.9); Red Blood Count 4.48 M/mm3 (4.6-6.2)
[2018-05-03 06:25] LABS: POSITIVE COUNT NO; POSITIVE DIFFERENTIAL NO; POSITIVE MORPHOLOGY NO
--- NOTE | 2018-05-03 07:10 | PCM.PN.BLA ---
Progress Note EGD: minimal antral gastritis..Continue omeprazole Colonoscopy: scattered diverticulosis No evidence for active GI bleeding Consider iron and conservative re-check labs
[2018-05-03] MEDS: DULoxetine Hcl 60 MG Capsule PO ×2 (08:47→17:15)
[2018-05-03] MEDS: Multivitamin (Healthy Eyes) Capsule 1 CAP PO ×2 (08:47→17:15)
[2018-05-03] MEDS: Cyanocobalamin 500 MCG Tablet PO (08:47)
[2018-05-03] MEDS: Acetaminophen 325 MG Tablet 650 MG PO ×3 (08:47→21:42)
[2018-05-03] MEDS: Finasteride 5 MG Tablet PO (08:47)
[2018-05-03] MEDS: Menthol/Lanolin/Calamine/Znox 113 GM Tube 1 APPLIC TOPICAL ×2 (08:57→21:43)
[2018-05-03 16:00] VITALS: BP 92/57; PULSE 67; RESP 20; TEMP 37.2; O2SAT 93
[2018-05-03] MEDS: Tamsulosin HCl 0.4 MG Capsule PO (17:15)
[2018-05-03] MEDS: Atorvastatin Calcium 10 MG Tablet PO (21:42)
[2018-05-03] MEDS: Donepezil HCl 10 MG Tablet PO (21:42)
[2018-05-03] MEDS: MELATONIN 10 MG TABLET PO (21:42)
[2018-05-03] MEDS: Pregabalin 75 MG Capsule 300 MG PO (21:47)
[2018-05-03] MEDS: 0.9% NaCl Peripheral Flush Adult/Peds IV (21:50)
--- NOTE | 2018-05-04 01:24 | NURSING ---
Pt refusing to wear bipap at this time. Will encourage.
[2018-05-04] MEDS: DULoxetine Hcl 60 MG Capsule PO ×2 (05:23→17:08)
[2018-05-04] MEDS: Cyanocobalamin 500 MCG Tablet PO (05:23)
[2018-05-04] MEDS: Pantoprazole Sodium 20 MG Tablet PO (05:23)
[2018-05-04] MEDS: Finasteride 5 MG Tablet PO (05:23)
[2018-05-04] MEDS: Multivitamin (Healthy Eyes) Capsule 1 CAP PO ×2 (05:23→17:08)
[2018-05-04] MEDS: Acetaminophen 325 MG Tablet 650 MG PO ×3 (05:23→21:19)
[2018-05-04] MEDS: Menthol/Lanolin/Calamine/Znox 113 GM Tube 1 APPLIC TOPICAL ×2 (05:23→21:21)
[2018-05-04 06:26] LABS: Anion Gap 5 (5-15); BUN 11 mg/dL (7-18); BUN/Creat Ratio 9.6 RATIO (10-20); Calcium,Total 8.1 mg/dL (8.5-10.1); Chloride 110 mmol/L (98-107); Creatinine, Serum 1.14 mg/dL (0.70-1.30); EST Glomerular Filtration Rate 66 mL/min (>60); Est Glom Filt Rate - Afr Amer 80 mL/min (>60); Estimated Creatinine Clearance 52.42 ml/min; Glucose 82 mg/dL (74-106); Potassium 4.2 mmol/L (3.5-5.1); Sodium Level 142 mmol/L (136-145)
[2018-05-04] MEDS: guaiFENesin Dm 10 ML UDC 5 ML PO ×2 (10:44→20:37)
[2018-05-04 10:49] VITALS: BP 124/72; PULSE 70; RESP 18; TEMP 36.9; O2SAT 94
[2018-05-04] MEDS: Loperamide 2 MG Capsule PO (13:53)
--- NOTE | 2018-05-04 14:04 | NURSING ---
Pt c/o cough, sounds congested. concerned about pt loose stools. Dr Carlton updated, new order for PRN imodium & resp panel. pt placed in precautions until results back
[2018-05-04 15:24] VITALS: TEMP 37
[2018-05-04 15:30] VITALS: BP 126/71; PULSE 72; RESP 20; TEMP 37.2; O2SAT 91
[2018-05-04] MEDS: Tamsulosin HCl 0.4 MG Capsule PO (17:08)
--- NOTE | 2018-05-04 18:45 | NURSING ---
Therapy concerned about popliteal cysts on RT leg. Dr Carlton updated and assessed, no new orders.
[2018-05-04] MEDS: Donepezil HCl 10 MG Tablet PO (21:19)
[2018-05-04] MEDS: Pregabalin 75 MG Capsule 300 MG PO (21:19)
[2018-05-04] MEDS: Atorvastatin Calcium 10 MG Tablet PO (21:19)
[2018-05-04] MEDS: MELATONIN 10 MG TABLET PO (21:19)
[2018-05-04 22:00] VITALS: TEMP 37.5
[2018-05-05] MEDS: Cyanocobalamin 500 MCG Tablet PO (05:26)
[2018-05-05] MEDS: DULoxetine Hcl 60 MG Capsule PO ×2 (05:26→17:45)
[2018-05-05] MEDS: Acetaminophen 325 MG Tablet 650 MG PO ×3 (05:26→21:08)
[2018-05-05] MEDS: Finasteride 5 MG Tablet PO (05:26)
[2018-05-05] MEDS: Multivitamin (Healthy Eyes) Capsule 1 CAP PO ×2 (05:26→17:45)
[2018-05-05] MEDS: Pantoprazole Sodium 20 MG Tablet PO (05:26)
[2018-05-05] MEDS: guaiFENesin Dm 10 ML UDC 5 ML PO (05:26)
[2018-05-05] MEDS: Menthol/Lanolin/Calamine/Znox 113 GM Tube 1 APPLIC TOPICAL ×2 (05:34→21:12)
[2018-05-05 06:52] VITALS: TEMP 36.9
--- NOTE | 2018-05-05 06:58 | NURSING ---
Low grade temp last HS, recheck this AM. Will report at shift change. will report to Dr Carlton.
[2018-05-05 11:31] LABS: Absolute Lymphocyte Count 0.97 X10^3/ul (0.83-4.51); Absolute Neutrophil Count 5.6 X10^3/uL (2.0-7.7); Basophil# 0.03 X10^3/uL; Basophil% 0.4 % (0-1); Eosinophil# 0.06 X10^3/uL; Eosinophils% 0.8 % (0-5); Hemoglobin 11.9 g/dl (13.0-16.5); Lymphocyte # 0.97 X10^3/ul (4.0); Lymphocyte % 12.8 % (19-41); Mean Corp Hgb Conc 30.5 g/gl (32-36); Mean Corpuscular Volume 85.2 fL (80-94); Monocyte# 0.94 X10^3/uL; Monocyte% 12.4 % (0-10); Neutrophil # 5.55 X10^3/uL (2.7-7.7); Neutrophil % 73.3 % (47-70); Platelet Count 270 K/mm3 (150-450); RBC Distribution Width CV 18.9 % (11.6-14.6); RBC Distribution Width SD 57.7 fl (35.1-43.9); Red Blood Count 4.58 M/mm3 (4.6-6.2); White Blood Count 7.6 K/mm3 (4.4-11.0)
[2018-05-05 11:39] LABS: POSITIVE COUNT NO; POSITIVE DIFFERENTIAL NO; POSITIVE MORPHOLOGY NO
[2018-05-05 11:50] LABS: Anion Gap 9 (5-15); BUN 12 mg/dL (7-18); BUN/Creat Ratio 10.8 RATIO (10-20); Calcium,Total 8.3 mg/dL (8.5-10.1); Chloride 109 mmol/L (98-107); Creatinine, Serum 1.11 mg/dL (0.70-1.30); EST Glomerular Filtration Rate 68 mL/min (>60); Est Glom Filt Rate - Afr Amer 82 mL/min (>60); Estimated Creatinine Clearance 53.84 ml/min; Glucose 93 mg/dL (74-106); Potassium 4.5 mmol/L (3.5-5.1); Sodium Level 141 mmol/L (136-145)
[2018-05-05 15:27] VITALS: BP 148/81; PULSE 80; RESP 18; TEMP 37.7; O2SAT 92
--- NOTE | 2018-05-05 16:05 | RAD_ITS ---
STUDY: X-RAY CHEST REASON FOR EXAM: Male, 77 years old. Cough. TECHNIQUE: Single AP portable view of the chest. COMPARISON: April 22, 2018. FINDINGS: There is a slightly improved inspiratory effort when compared to prior study. There is no new infiltrate or mass There is no demonstrated pleural abnormality. Normal size heart. Stable cardiac pacemaker. Normal mediastinum and elis. Normal visualized pulmonary arteries. Normal visualized aortic arch and descending thoracic aorta. The thoracic spine is obscured by the mediastinum. There is degenerative osteoarthritis of the bilateral shoulders. There is no demonstrated abnormality of the visualized soft tissue structures of the upper abdomen. RAD/Chest 1 View (Portable) IMPRESSION: 1. Stable cardiac pacemaker. 2. No acute cardiopulmonary disease. Electronically Signed: Mike Michelle DO at 16:17 EST Tel [phone], Service support ,
[2018-05-05] MEDS: Tamsulosin HCl 0.4 MG Capsule PO (17:45)
[2018-05-05] MEDS: Pregabalin 75 MG Capsule 300 MG PO (21:07)
[2018-05-05] MEDS: Donepezil HCl 10 MG Tablet PO (21:08)
[2018-05-05] MEDS: MELATONIN 10 MG TABLET PO (21:08)
[2018-05-05] MEDS: NYSTATIN 500,000 UNIT/5 ML UDC 500000 UNIT PO (21:08)
[2018-05-05] MEDS: Atorvastatin Calcium 10 MG Tablet PO (21:08)
--- NOTE | 2018-05-06 00:21 | NURSING ---
All care was provided to patient in room due to patient being in precautions for parainfluenza virus 3.
[2018-05-06] MEDS: Acetaminophen 325 MG Tablet 650 MG PO ×3 (04:54→21:48)
[2018-05-06] MEDS: Pantoprazole Sodium 20 MG Tablet PO (04:54)
[2018-05-06] MEDS: Cyanocobalamin 500 MCG Tablet PO (04:54)
[2018-05-06] MEDS: DULoxetine Hcl 60 MG Capsule PO ×2 (04:54→18:04)
[2018-05-06] MEDS: Multivitamin (Healthy Eyes) Capsule 1 CAP PO ×2 (04:54→18:05)
[2018-05-06] MEDS: Finasteride 5 MG Tablet PO (04:54)
[2018-05-06] MEDS: NYSTATIN 500,000 UNIT/5 ML UDC 500000 UNIT PO ×4 (04:55→21:48)
[2018-05-06] MEDS: Menthol/Lanolin/Calamine/Znox 113 GM Tube 1 APPLIC TOPICAL ×2 (05:05→21:37)
[2018-05-06 06:26] LABS: Bacteria 0 SEEN /hpf (None Seen); Mucous, Urine 0 SEEN /hpf (<or=2+); Red Blood Cells-Urine 0 SEEN /hpf (0-5); Squamous Epithelial Cells - UA 0 SEEN /hpf (0-5)
[2018-05-06 06:34] LABS: Hyaline Cast 5-10 SEEN /lpf (0-5); White Blood Cells 5-10 SEEN /hpf (0-5)
[2018-05-06 06:43] LABS: Color, Urine Yellow (Yellow); Glucose, Dipstick Normal (Normal); Ketone-Dipstick Negative (Negative); Leukocyte Esterase-Dipstick Negative /ul (Negative); Nitrite-Dipstick Negative (Negative); Occult Blood-Urine Negative /ul (Negative); Protein-Dipstick Negative (Negative); Urine Bilirubin Dipstick Negative (Negative); Urine Clarity Clear (Clear); Urine Urobilinogen Normal (Normal)
--- NOTE | 2018-05-06 08:00 | VDLE_ITS ---
Reason For Study: F/U RT PTV DVT RIGHT LEFT GSV is normal. GSV is normal. CFV is compressible, spontaneous, phasic, CFV is compressible, spontaneous, phasic, competent and demonstrates normal competent, and demonstrates normal augmentation. augmentation. FV is compressible, spontaneous, phasic, FV is compressible, spontaneous, phasic, competent and demonstrates normal competent and demonstrates normal augmentation. augmentation. POP V is compressible, spontaneous, phasic, POP V is compressible, spontaneous, phasic, competent and demonstrates normal competent and demonstrates normal augmentation. augmentation. T/P Trunk is compressible. T/P Trunk is compressible. RT PerV is compressible. PTV is compressible. PTV is now compressible throughout. PERV is compressible. NON vascular structure noted in medial pop NON vascular structure noted in medial fossa area measuring 3.04 x 3.78 cm. proximal calf which measured 2.11 x 5.53 cm; Procedure however length was much longer, extending to Exam performed portable in patient room. ankle; length could not be accurately A preliminary report was called and/or faxed measured. to TCU. Interpretation Summary Deep veins of the lower extremities are bilaterally patent and compressible segmentally. There is no evidence of deep vein thrombosis on either side. Valvular competence appears intact within the proximal deep venous systems bilaterally. The greater saphenous veins appear bilaterally patent and compressible segmentally. Non-vascular, heterogeneous structures are noted in the popliteal spaces bilaterally, which may represent popliteal cysts, with possible rupture. The structure on the left extends from the proximal calf to the ankle. Dimensions are as documented above. Clinical correlation is advised. Ordering Physician: Vinny Carlton Referring Physician: Stephanie Fuchs Performed By: Annabella Collier, RDCS, RVT
--- NOTE | 2018-05-06 10:03 | MDS.RN ---
Information for the mds was obtained from review of the clinical record, interview of resident, staff, and direct observation of resident's care.
--- NOTE | 2018-05-06 11:43 | CASEMGMT ---
Addendum entered by Florina Grover 05/06/18 14:14: Reviewed and approved social work student MDS documentation. VIJAYA Glynn Original Note: Brief interview for mental status (BIMS) and mood (PHQ-9) completed on this day. BIMS score 10/15. PHQ-9 score 04/14. Rosio Chen social work student
--- NOTE | 2018-05-06 13:06 | NURSING ---
Care provided under special precautions r/t influenza virus.
--- NOTE | 2018-05-06 13:40 | MDS.RN ---
Pain interview for amy 05/07/18 completed.
[2018-05-06 16:00] VITALS: BP 130/77; PULSE 72; RESP 20; TEMP 36.7; O2SAT 96
--- NOTE | 2018-05-06 16:12 | NURSING ---
Dr. Carlton reviewed doppler, NNO.
[2018-05-06] MEDS: Tamsulosin HCl 0.4 MG Capsule PO (18:04)
[2018-05-06] MEDS: Atorvastatin Calcium 10 MG Tablet PO (21:48)
[2018-05-06] MEDS: MELATONIN 10 MG TABLET PO (21:48)
[2018-05-06] MEDS: Pregabalin 75 MG Capsule 300 MG PO (21:48)
[2018-05-06] MEDS: Donepezil HCl 10 MG Tablet PO (21:48)
--- NOTE | 2018-05-07 00:27 | NURSING ---
All care provided in room during this shift d/t pt being in droplet/contact isolation for influenza.
[2018-05-07] MEDS: Menthol/Lanolin/Calamine/Znox 113 GM Tube 1 APPLIC TOPICAL ×2 (05:42→21:10)
[2018-05-07] MEDS: Finasteride 5 MG Tablet PO (05:43)
[2018-05-07] MEDS: Cyanocobalamin 500 MCG Tablet PO (05:44)
[2018-05-07] MEDS: Pantoprazole Sodium 20 MG Tablet PO (05:44)
[2018-05-07] MEDS: Multivitamin (Healthy Eyes) Capsule 1 CAP PO ×2 (05:44→17:17)
[2018-05-07] MEDS: DULoxetine Hcl 60 MG Capsule PO ×2 (05:44→17:17)
[2018-05-07] MEDS: Acetaminophen 325 MG Tablet 650 MG PO ×3 (05:44→21:10)
[2018-05-07] MEDS: NYSTATIN 500,000 UNIT/5 ML UDC 500000 UNIT PO ×4 (05:46→21:10)
[2018-05-07 11:36] VITALS: O2SAT 96
--- NOTE | 2018-05-07 12:14 | NURSING ---
Pt remains in droplet precautions, all activities and therapies performed in room.
[2018-05-07 12:25] VITALS: PULSE 75; RESP 19
[2018-05-07] MEDS: Ipratropium/Albuterol Sulfate 3 ML AMPUL.NEB INHALATION (12:25)
[2018-05-07 16:00] VITALS: BP 108/56; PULSE 75; RESP 20; TEMP 36.9; O2SAT 92
[2018-05-07] MEDS: Tamsulosin HCl 0.4 MG Capsule PO (17:17)
[2018-05-07] MEDS: Atorvastatin Calcium 10 MG Tablet PO (21:10)
[2018-05-07] MEDS: Donepezil HCl 10 MG Tablet PO (21:10)
[2018-05-07] MEDS: MELATONIN 10 MG TABLET PO (21:10)
[2018-05-07] MEDS: Pregabalin 75 MG Capsule 300 MG PO (21:14)
[2018-05-07] MEDS: guaiFENesin Dm 10 ML UDC 5 ML PO (21:20)
[2018-05-08] MEDS: NYSTATIN 500,000 UNIT/5 ML UDC 500000 UNIT PO ×4 (05:15→21:08)
[2018-05-08] MEDS: Acetaminophen 325 MG Tablet 650 MG PO ×3 (05:15→21:08)
[2018-05-08] MEDS: Menthol/Lanolin/Calamine/Znox 113 GM Tube 1 APPLIC TOPICAL ×2 (05:15→21:08)
[2018-05-08] MEDS: DULoxetine Hcl 60 MG Capsule PO ×2 (05:15→17:00)
[2018-05-08] MEDS: Finasteride 5 MG Tablet PO (05:15)
[2018-05-08] MEDS: Pantoprazole Sodium 20 MG Tablet PO (05:15)
[2018-05-08] MEDS: Multivitamin (Healthy Eyes) Capsule 1 CAP PO ×2 (05:15→17:00)
[2018-05-08] MEDS: Cyanocobalamin 500 MCG Tablet PO (05:15)
[2018-05-08] MEDS: guaiFENesin Dm 10 ML UDC 5 ML PO ×3 (05:16→21:07)
[2018-05-08 08:45] VITALS: PULSE 74; RESP 16; O2SAT 93
[2018-05-08] MEDS: Ipratropium/Albuterol Sulfate 3 ML AMPUL.NEB INHALATION (08:45)
--- NOTE | 2018-05-08 13:58 | NURSING ---
Pt remains in isolation, all treatments and care provided in pt room
[2018-05-08] MEDS: oxyCODONE 5 MG Tablet 2.5 MG PO ×2 (14:14→22:54)
[2018-05-08 16:00] VITALS: BP 121/68; PULSE 77; RESP 20; TEMP 36.2; O2SAT 93
[2018-05-08] MEDS: Tamsulosin HCl 0.4 MG Capsule PO (17:00)
[2018-05-08] MEDS: Atorvastatin Calcium 10 MG Tablet PO (21:07)
[2018-05-08] MEDS: Pregabalin 75 MG Capsule 300 MG PO (21:08)
[2018-05-08] MEDS: MELATONIN 10 MG TABLET PO (21:08)
[2018-05-08] MEDS: Donepezil HCl 10 MG Tablet PO (21:08)
--- NOTE | 2018-05-09 01:44 | NURSING ---
All care provided in room d/t pt remains in precautions.
--- NOTE | 2018-05-09 02:09 | NURSING ---
All care provided in room d/t pt remaining in isolation
[2018-05-09] MEDS: NYSTATIN 500,000 UNIT/5 ML UDC 500000 UNIT PO ×4 (05:10→21:23)
[2018-05-09] MEDS: guaiFENesin Dm 10 ML UDC 5 ML PO ×2 (05:10→21:23)
[2018-05-09] MEDS: Finasteride 5 MG Tablet PO (05:11)
[2018-05-09] MEDS: Cyanocobalamin 500 MCG Tablet PO (05:11)
[2018-05-09] MEDS: Acetaminophen 325 MG Tablet 650 MG PO ×3 (05:11→21:23)
[2018-05-09] MEDS: DULoxetine Hcl 60 MG Capsule PO ×2 (05:11→18:22)
[2018-05-09] MEDS: Pantoprazole Sodium 20 MG Tablet PO (05:11)
[2018-05-09] MEDS: Menthol/Lanolin/Calamine/Znox 113 GM Tube 1 APPLIC TOPICAL ×2 (05:11→21:24)
[2018-05-09] MEDS: Multivitamin (Healthy Eyes) Capsule 1 CAP PO ×2 (05:11→18:22)
--- NOTE | 2018-05-09 14:36 | NURSING ---
All care provided in room d/t isolation precautions.
--- NOTE | 2018-05-09 15:06 | PCM.PN.PAL ---
Progress Note- Hospice Date: 05/09/18 Subjective: Pt seen in his room for f/u. In droplet isolation for parainfluenza. Seems to be feeling some better. Had flu like illness. Still doing therapies in his room. Tylenol rtc and prn oxycodone helping his pain. Saw Dr. Jaramillo and has scheduled injection to facets of his neck next week. Seems to be progressing in therapies. Had EGD and colonoscopy per Dr. Giron and appreciate his excellent care. ? Microscopic colitis. Placed today on questran for stools and iron for anemia. Flagyl stopped. Consider restarting xarelto at some point. No bleeding now and no biopsies. Wearing bipap at hs. Pleasant and poor memory. Cooperative. Some neck pain as previous. Dc plans for later this week to go home with his . Will need home health and f/u. Plan to avoid recurrent hospitalizations, falls, etc.. Will need to use walker. Consider restarting xarelto at some point? Meds and treatments reviewed. Reduce medication burden as able. On ensure and appetite is improving he says. not here today with poor weather. Discussed with him. No distress at present. Has not used O2 now. REcords noted. Objective: Vital Signs Temp 97.1 F L 05/08/18 16:00 Pulse 77 05/08/18 16:00 Resp 20 H 05/08/18 16:00 BP 121/68 H 05/08/18 16:00 Pulse Ox 93 05/08/18 16:00 Intake & Output 05/07/18 05/08/18 05/09/18 23:59 23:59 23:59 Intake Total 720 / 720 900 / 900 360 / 360 Balance 720 / 720 900 / 900 360 / 360 Intake: Oral 720 / 720 900 / 900 360 / 360 Other: Incontinent Amount Moderate Number of Bowel Movements 3 2 Current Medications Acetaminophen (Tylenol) 650 mg PO Q8H BARBI Last Admin: 05/09/18 14:40 Dose: 650 mg Albuterol Sulfate (Ventolin Hfa (Sp)) 1 puff INHALATION Q6H PRN PRN PRN Reason: SOB/WHEEZING Last Admin: 05/07/18 11:26 Dose: 1 puff Albuterol/Ipratropium (Duoneb) 3 ml INHALATION Q6H.RT PRN PRN Reason: sob/wheezing Last Admin: 05/08/18 08:45 Dose: 3 ml Atorvastatin Calcium (Lipitor) 10 mg PO QHS [facility] Last Admin: 05/08/18 21:07 Dose: 10 mg Calamine/Phenol (Calmoseptine Ointment) 1 applic TOPICAL 0600,2200 [facility]; Protocol Last Admin: 05/09/18 05:11 Dose: 1 applicatio Chlorhexidine Gluconate () 1 each TOPICAL 2000,1300 [facility] Stop: 05/17/18 13:01 Cholecalciferol (Vitamin D) 1,000 unit PO DAILY [facility] Last Admin: 05/09/18 05:11 Dose: 1,000 unit Cholestyramine Resin ([facility] 4gm Packet) [facility] Cyanocobalamin (Vitamin B12) 500 mcg PO DAILY [facility] Last Admin: 05/09/18 05:11 Dose: 500 mcg Donepezil HCl (Aricept) 10 mg PO QHS [facility] Last Admin: 05/08/18 21:08 Dose: 10 mg Duloxetine HCl (Cymbalta) 60 mg PO BID [facility] Last Admin: 05/09/18 05:11 Dose: 60 mg Finasteride (Proscar) 5 mg PO DAILY [facility] Last Admin: 05/09/18 05:11 Dose: 5 mg Guaifenesin (Robitussin Dm) 5 ml PO Q6H PRN PRN PRN Reason: COUGH Last Admin: 05/09/18 05:10 Dose: 5 ml Melatonin (Melatonin) 10 mg PO QHS [facility] Last Admin: 05/08/18 21:08 Dose: 10 mg Multi-Ingredient Cream (Eucerin) 1 applic TOPICAL 0600,2200 [facility] Last Admin: 05/09/18 05:13 Dose: 1 applicatio Multivitamins/Minerals (Healthy Eyes) 1 capsule PO BID [facility] Last Admin: 05/09/18 05:11 Dose: 1 capsule Nutritional Formula (Lactose Free) (Ensure Clear) 120 ml PO 4X/DAY [facility] Last Admin: 05/09/18 12:01 Dose: 120 ml Nystatin (Nystatin) 500,000 unit PO 4X/DAY [facility] Stop: 05/15/18 22:01 Last Admin: 05/09/18 12:01 Dose: 500,000 unit Oxycodone HCl (Oxyir) 2.5 mg PO Q6H PRN PRN PRN Reason: SEVERE PAIN (6-10/10) Last Admin: 05/08/18 22:54 Dose: 2.5 mg Pantoprazole Sodium (Protonix) 20 mg PO DAILY [facility] Last Admin: 05/09/18 05:11 Dose: 20 mg Potassium Chloride (K-Dur) 20 meq PO TIDCM [facility] Last Admin: 05/09/18 12:01 Dose: 20 meq Pregabalin (Lyrica) 300 mg PO QHS [facility] Last Admin: 05/08/18 21:08 Dose: 300 mg Sodium Chloride () 5 - 15 ml IV UD PRN PRN Reason: SALINE FLUSH Last Admin: 05/03/18 21:50 Dose: 10 ml Tamsulosin HCl (Flomax) 0.4 mg PO DAILY@1730 [facility] Last Admin: 05/08/18 17:00 Dose: 0.4 mg - Physical Exam General: Alert, Oriented x3, Cooperative, No apparent distress, - - poor memory HEENT: Atraumatic, PERRLA, EOMI, Normocephalic Oral: Moist Mucosa Neck: Supple, No JVD, No Nodes, - - tender bilateral poor rom Lungs: Clear to auscultation, Normal air movement, Diminished Cardiovascular: No murmurs, Irregular Rate, No Gallop Abdomen: Bowel Sounds Present, Soft, Non-Distended, Hyperactive Bowel Sounds, No hernias noted, - - mild lower quads tender Extremities: No clubbing, No cyanosis, No edema, Diminished Peripheral Pulses, - - 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 Skin: No rashes, No breakdown Musculoskeletal: No Muscle Wasting, Arthritic Changes, Muscle Wasting Lymphatic: No Cervical, Supraclavicular, or Inguinal Adenopathy Neurological: Cranial nerves II-XII grossly intact, Deep Tendon Reflexes 2+/4 and Symmetrical, - - 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 Has multiple comorbidities and complex medical hx. Includes COPD, ASHD with pacer and ARLENE with resp failure. Hx of Early dementia and now in TCU for rehab. Admitted to TCU from [facility] for debility and rehabilitation. Seems to be progressing with therapies and up with walker. Gaining strength. As mentioned above with parainfluenza positive. Overall improving. Doing therapies in his room and had endoscopies per Dr. Giron. reports noted. Meds reviewed. Plan f/u labs. Will f/u with Dr. Jaramillo next week for injections to his neck for facet OA. Placed on iron for anemia and questran for his stools. Using bipap at hs and no O2 at present. up with walker. Dc plan for home care with his and home health. Using occasional oxyIR and scheduled tylenol for pain. Lyrica at hs as well. Poor overall memory but pleasant and cooperative. Plan f/u at home upon dc to home with [facility]. Goals for comfort and functionality and to prevent recurrent hospitalizations and falls. Will need to monitor function and compliance at home closely. Continue DNRCCA. Monitor for potential decline and hospice appropriateness if this occurs. Appreciate being involved with his care. Will communicate with his about above and collaborate. Will discuss with staff here in TCU.
--- NOTE | 2018-05-09 15:17 | PN.PALL_ITS ---
Progress Note- Hospice Date: 05/09/18 Subjective: Pt seen in his room for f/u. In droplet isolation for parainfluenza. Seems to be feeling some better. Had flu like illness. Still doing therapies in his room. Tylenol rtc and prn oxycodone helping his pain. Saw Dr. Jaramillo and has scheduled injection to facets of his neck next week. Seems to be progressing in therapies. Had EGD and colonoscopy per Dr. Giron and appreciate his excellent care. ? Microscopic colitis. Placed today on questran for stools and iron for anemia. Flagyl stopped. Consider restarting xarelto at some point. No bleeding now and no biopsies. Wearing bipap at hs. Pleasant and poor memory. Cooperative. Some neck pain as previous. Dc plans for later this week to go home with his . Will need home health and f/u. Plan to avoid recurrent hospitalizations, falls, etc.. Will n eed to use walker. Consider restarting xarelto at some point? Meds and treatments reviewed. Reduce medication burden as able. On ensure and appetite is improving he says. not here today with poor weather. Discussed with him. No distress at present. Has not used O2 now. REcords noted. Objective: Vital Signs Temp 97.1 F L 05/08/18 16:00 Pulse 77 05/08/18 16:00 Resp 20 H 05/08/18 16:00 BP 121/68 H 05/08/18 16:00 Pulse Ox 93 05/08/18 16:00 Intake & Output 05/07/18 05/08/18 05/09/18 23:59 23:59 23:59 Intake Total 720 / 720 900 / 900 360 / 360 Balance 720 / 720 900 / 900 360 / 360 Intake: Oral 720 / 720 900 / 900 360 / 360 Other: Incontinent Amount Moderate Number of Bowel Movements 3 2 Current Medications Acetaminophen (Tylenol) 650 mg PO Q8H [facility] Last Admin: 05/09/18 14:40 Dose: 650 mg Albuterol Sulfate (Ventolin Hfa (Sp)) 1 puff INHALATION Q6H PRN PRN PRN Reason: SOB/WHEEZING Last Admin: 05/07/18 11:26 Dose: 1 puff Albuterol/Ipratropium (Duoneb) 3 ml INHALATION Q6H.RT PRN PRN Reason: sob/wheezing Last Admin: 05/08/18 08:45 Dose: 3 ml Atorvastatin Calcium (Lipitor) 10 mg PO QHS [facility] Last Admin: 05/08/18 21:07 Dose: 10 mg Calamine/Phenol (Calmoseptine Ointment) 1 applic TOPICAL 0600,2200 [facility]; Protocol Last Admin: 05/09/18 05:11 Dose: 1 applicatio Chlorhexidine Gluconate () 1 each TOPICAL 2000,1300 [facility] Stop: 05/17/18 13:01 Cholecalciferol (Vitamin D) 1,000 unit PO DAILY [facility] Last Admin: 05/09/18 05:11 Dose: 1,000 unit Cholestyramine Resin ([facility]) [facility] Cyanocobalamin (Vitamin B12) 500 mcg PO DAILY [facility] Last Admin: 05/09/18 05:11 Dose: 500 mcg Donepezil HCl (Aricept) 10 mg PO QHS [facility] Last Admin: 05/08/18 21:08 Dose: 10 mg Duloxetine HCl (Cymbalta) 60 mg PO BID [facility] Last Admin: 05/09/18 05:11 Dose: 60 mg Finasteride (Proscar) 5 mg PO DAILY [facility] Last Admin: 05/09/18 05:11 Dose: 5 mg Guaifenesin (Robitussin Dm) 5 ml PO Q6H PRN PRN PRN Reason: COUGH Last Admin: 05/09/18 05:10 Dose: 5 ml Melatonin (Melatonin) 10 mg PO QHS [facility] Last Admin: 05/08/18 21:08 Dose: 10 mg Multi-Ingredient Cream (Eucerin) 1 applic TOPICAL 0600,2200 [facility] Last Admin: 05/09/18 05:13 Dose: 1 applicatio Multivitamins/Minerals (Healthy Eyes) 1 capsule PO BID [facility] Last Admin: 05/09/18 05:11 Dose: 1 capsule Nutritional Formula (Lactose Free) (Ensure Clear) 120 ml PO 4X/DAY [facility] Last Admin: 05/09/18 12:01 Dose: 120 ml Nystatin (Nystatin) 500,000 unit PO 4X/DAY [facility] Stop: 05/15/18 22:01 Last Admin: 05/09/18 12:01 Dose: 500,000 unit Oxycodone HCl (Oxyir) 2.5 mg PO Q6H PRN PRN PRN Reason: SEVERE PAIN (6-1010) Last Admin: 05/08/18 22:54 Dose: 2.5 mg Pantoprazole Sodium (Protonix) 20 mg PO DAILY [facility] Last Admin: 05/09/18 05:11 Dose: 20 mg Potassium Chloride (K-Dur) 20 meq PO TIDCM [facility] Last Admin: 05/09/18 12:01 Dose: 20 meq Pregabalin (Lyrica) 300 mg PO QHS [facility] Last Admin: 05/08/18 21:08 Dose: 300 mg Sodium Chloride () 5 - 15 ml IV UD PRN PRN Reason: SALINE FLUSH Last Admin: 05/03/18 21:50 Dose: 10 ml Tamsulosin HCl (Flomax) 0.4 mg PO DAILY@1730 [facility] Last Admin: 05/08/18 17:00 Dose: 0.4 mg - Physical Exam General: Alert, Oriented x3, Cooperative, No apparent distress, - - poor memory HEENT: Atraumatic, PERRLA, EOMI, Normocephalic Oral: Moist Mucosa Neck: Supple, No JVD, No Nodes, - - tender bilateral poor rom Lungs: Clear to auscultation, Normal air movement, Diminished Cardiovascular: No murmurs, Irregular Rate, No Gallop Abdomen: Bowel Sounds Present, Soft, Non-Distended, Hyperactive Bowel Sounds, No hernias noted, - - mild lower quads tender Extremities: No clubbing, No cyanosis, No edema, Diminished Peripheral Pulses, - - 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 Skin: No rashes, No breakdown Musculoskeletal: No Muscle Wasting, Arthritic Changes, Muscle Wasting Lymphatic: No Cervical, Supraclavicular, or Inguinal Adenopathy Neurological: Cranial nerves II-XII grossly intact, Deep Tendon Reflexes 2+/4 and Symmetrical, - - 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 neck as above memory poor cooperative Psych/Mental Status: Normal Affect, Appropriate Assessment/Plan All Active Problems (Last Reviewed 04/22/18 @ 17:26 by BERENICE Wheatley) Fall (Acute) Stool guaiac positive (Acute) S/P TURP (status post transurethral resection of prostate) (Resolved) History of inguinal hernia repair (Resolved) History of hemorrhoidectomy (Resolved) History of prostatectomy (Resolved) right ochiectomy (Resolved) History of appendectomy (Resolved) Pt is 77 y/o male with repeated [facility] stays following frequent falls at home and some decline. Has multiple comorbidities and complex medical hx. Includes COPD, ASHD with pacer and ARLENE with resp failure. Hx of Early dementia and now in TCU for rehab. Admitted to TCU from [facility] for debility and rehabilitation. Seems to be progressing with therapies and up with walker. Gaining strength. As mentioned above with parainfluenza positive. Overall improving. Doing therapies in his room and had endoscopies per Dr. Giron. reports noted. Meds reviewed. Plan f/u labs. Will f/u with Dr. Jaramillo next week for injections to his neck for facet OA. Placed on iron for anemia and questran for his stools. Using bipap at hs and no O2 at present. up with walker. Dc plan for home care with his and home health. Using occasional oxyIR and scheduled tylenol for pain. Lyrica at hs as well. Poor overall memory but pleasant and cooperative. Plan f/u at home upon dc to home with [facility]. Goals for comfort and functionality and to prevent recurrent hospitalizations and falls. Will need to monitor function and compliance at home closely. Continue DNRCCA. Monitor for potential decline and hospice appropriateness if this occurs. Appreciate being involved with his care. Will communicate with his about above and collaborate. Will discuss with staff here in TCU.
[2018-05-09] MEDS: Cholestyramine/Sucrose 4 GM/PACKET PO (15:38)
[2018-05-09 16:00] VITALS: BP 100/65; PULSE 70; RESP 16; TEMP 36.8; O2SAT 95
[2018-05-09] MEDS: Tamsulosin HCl 0.4 MG Capsule PO (18:21)
[2018-05-09] MEDS: Donepezil HCl 10 MG Tablet PO (21:23)
[2018-05-09] MEDS: Atorvastatin Calcium 10 MG Tablet PO (21:23)
[2018-05-09] MEDS: Pregabalin 75 MG Capsule 300 MG PO (21:24)
[2018-05-09] MEDS: MELATONIN 10 MG TABLET PO (21:24)
[2018-05-09] MEDS: oxyCODONE 5 MG Tablet 2.5 MG PO (21:25)
[2018-05-10] MEDS: DULoxetine Hcl 60 MG Capsule PO ×2 (05:02→17:27)
[2018-05-10] MEDS: NYSTATIN 500,000 UNIT/5 ML UDC 500000 UNIT PO ×4 (05:02→21:20)
[2018-05-10] MEDS: Acetaminophen 325 MG Tablet 650 MG PO ×3 (05:02→21:19)
[2018-05-10] MEDS: Cyanocobalamin 500 MCG Tablet PO (05:02)
[2018-05-10] MEDS: Finasteride 5 MG Tablet PO (05:02)
[2018-05-10] MEDS: Menthol/Lanolin/Calamine/Znox 113 GM Tube 1 APPLIC TOPICAL ×2 (05:02→21:30)
[2018-05-10] MEDS: Multivitamin (Healthy Eyes) Capsule 1 CAP PO ×2 (05:03→17:27)
[2018-05-10] MEDS: Pantoprazole Sodium 20 MG Tablet PO (05:03)
[2018-05-10] MEDS: guaiFENesin Dm 10 ML UDC 5 ML PO (05:03)
[2018-05-10 05:47] LABS: Absolute Lymphocyte Count 1.49 X10^3/ul (0.83-4.51); Absolute Neutrophil Count 5.4 X10^3/uL (2.0-7.7); Basophil# 0.02 X10^3/uL; Basophil% 0.3 % (0-1); Eosinophil# 0.15 X10^3/uL; Hematocrit 37.7 % (40-54); Hemoglobin 11.5 g/dl (13.0-16.5); Lymphocyte # 1.49 X10^3/ul (4.0); Lymphocyte % 19.8 % (19-41); Mean Corp Hgb Conc 30.5 g/gl (32-36); Mean Corpuscular Hgb 25.8 pg (27.0-32.0); Mean Corpuscular Volume 84.7 fL (80-94); Mean Platelet Vol. 10.8 fl (6.2-12.0); Monocyte# 0.46 X10^3/uL; Monocyte% 6.1 % (0-10); Neutrophil # 5.39 X10^3/uL (2.7-7.7); Neutrophil % 71.5 % (47-70); Platelet Count 225 K/mm3 (150-450); RBC Distribution Width CV 18.7 % (11.6-14.6); RBC Distribution Width SD 56.7 fl (35.1-43.9); Red Blood Count 4.45 M/mm3 (4.6-6.2); White Blood Count 7.5 K/mm3 (4.4-11.0)
[2018-05-10 06:02] LABS: POSITIVE COUNT NO; POSITIVE DIFFERENTIAL NO; POSITIVE MORPHOLOGY NO
[2018-05-10 06:23] LABS: Anion Gap 9 (5-15); BUN 16 mg/dL (7-18); BUN/Creat Ratio 14.8 RATIO (10-20); Calcium,Total 8.3 mg/dL (8.5-10.1); Chloride 113 mmol/L (98-107); Creatinine, Serum 1.08 mg/dL (0.70-1.30); EST Glomerular Filtration Rate 70 mL/min (>60); Est Glom Filt Rate - Afr Amer 85 mL/min (>60); Estimated Creatinine Clearance 55.33 ml/min; Glucose 126 mg/dL (74-106); Potassium 4.3 mmol/L (3.5-5.1); Sodium Level 144 mmol/L (136-145)
[2018-05-10] MEDS: Cholestyramine/Sucrose 4 GM/PACKET PO (09:13)
--- NOTE | 2018-05-10 11:34 | NURSING ---
pt called out to use restroom and then to get washed up. up with min assist and walker. pt with no bm since yest and worried about going the other way now will talk about dc'ing questran since no diarrhea last 24hrs. pt in to finish am care.
[2018-05-10 15:57] VITALS: BP 120/77; PULSE 79; RESP 18; TEMP 36.7; O2SAT 95
--- NOTE | 2018-05-10 16:21 | CASEMGMT ---
Social Work Spoke with resident and resident spouse in room. This social welfare research worker communicating that discharge date has been set for 05/14/18. Resident and resident spouse agreeable to discharge date and plan for resident to discharge to home with spouse. Resident spouse plans to provide 24hr care. This social welfare research worker communicating that physical and occupational therapy are recommending for resident to continue with services within the home. Resident is agreeable to recommendation and requesting for home health care to be set up through [facility] in [place], [place]. Resident reporting to have a walker already set up within the home and that resident spouse plans to provide transportation home for resident at time of discharge. Resident is also active with [facility] - Palliative services. Support given. Telephone call to Linh Fuchs. This social welfare research worker communicating resident discharge date. Palliative care to follow up with resident after discharge. Telephone call to [facility]. This social welfare research worker making referral for physical and occupational therapy. Clinical information to be faxed when order is obtained. Proposed discharge date: 05/14/18 PLAN: Discharge to home with spouse and home health care. VIJAYA Glynn
[2018-05-10] MEDS: Tamsulosin HCl 0.4 MG Capsule PO (17:27)
--- NOTE | 2018-05-10 17:56 | NURSING ---
PT having difficulty having BM today, Dr. Carlton updated, NO to change Questran to daily PRN. NO for CBC, CMP, TSH and Free T4 for wednesday, before discharging home.
--- NOTE | 2018-05-10 20:49 | DCINST_ITS ---
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) Anxiety (Chronic) Neuropathy (Chronic) Chronic kidney disease (Chronic) Chronic diastolic heart failure (Chronic) COPD (chronic obstructive pulmonary disease) (Chronic) Stool guaiac positive (Acute) You will use the following diet at home:: No restrictions, Regular Your food should be the consistency of: Regular Your liquids should be the consistency of: Regular/Thin Discharge Activity: Return to Normal Activity May resume sexual activity in: No Restrictions Weight Bearing Status: Weight bearing as tolerated Call your doctor if you observe: Fever of 101 or Higher, Inability to urinate, Inability to have a bowel movement, Shortness of breath, Chest pain, Uncontrolled pain Allergies/Adverse Reactions: Allergies Penicillins Allergy (Severe, Verified 05/02/18 09:43) Anaphylaxis adhesive Allergy (Verified 05/02/18 09:43) Rash Sulfa (Sulfonamide Antibiotics) Allergy (Verified 05/02/18 09:43) Rash lactose Adverse Reaction (Unknown, Verified 05/02/18 09:43) GI UPSET diazepam [From Valium] Adverse Reaction (Verified 05/02/18 09:43) hyper opposite effect desired HYPER OPPOSITE EFFECT DESIRED niacin [From Niaspan Extended-Release] Adverse Reaction (Verified 05/02/18 09:43) low bp LOW BP simvastatin Adverse Reaction (Verified 05/02/18 09:43) Pain in joints Medications to take at Discharge Cyanocobalamin [Vitamin B12] 1 tab PO DAILY 06/18/17 Melatonin 10 mg PO QHS 06/18/17 Omeprazole 20 mg PO DAILY 06/18/17 Vit A/Vit C/Vit E/Zinc/Copper [Preservision Areds Softgel] 1 cap PO BID 06/18/17 Duloxetine HCl 60 mg PO BID 03/16/18 Donepezil HCl [Aricept] 10 mg PO QHS 03/22/18 Pregabalin [Lyrica] 300 mg PO QHS 03/22/18 Tamsulosin HCl [Flomax] 0.4 mg PO DAILY@1730 03/22/18 Finasteride [Proscar] 5 mg PO DAILY #30 tablet 03/30/18 Cholecalciferol (VIT D3) [Vitamin D3] 1,000 unit PO DAILY 04/22/18 Oxycodone [Oxyir] 2.5 mg PO Q6H PRN PRN 04/22/18 Menthol/Lanolin/Calamine/Znox [Calmoseptine Ointment] 1 applic TOPICAL 0600,219904/23/18 Mineral Oil/Petrolatum,White [Eucerin] 1 applic TOPICAL 0600,219904/23/18 Acetaminophen [Tylenol Tablet] 650 mg PO Q8H tablet 05/10/18 Guaifenesin Dm [Robitussin Dm] 5 ml PO Q6H PRN PRN udc 05/10/18 Potassium Chloride [K-Dur] 20 meq PO TIDCM #90 tablet 05/10/18 Rosuvastatin Calcium [Crestor] 5 mg PO DAILY #30 tablet 05/10/18 The following prescriptions were given: Rosuvastatin Calcium [Crestor] 5 mg PO DAILY #30 tablet Potassium Chloride [K-Dur] 20 meq PO TIDCM #90 tablet Primary Care Physician: Stephanie Fuchs MD [Primary Care Provider] - Please follow up with your Primary Care Physician in: 1 week. Test Results: Test results from this visit will be discussed in further detail at your follow- up appointment, if applicable. Please Follow Up With: Don Jaramillo When: JOSE A Proposed Discharge Date: 05/14/18
--- NOTE | 2018-05-10 20:49 | PCM.DC.SUM ---
Discharge Date and Diagnosis - Problem List Patient Problems: Active and Suspected Problems (Last Updated 03/21/18 @ 18:31 by Modesto Mclaughlin DO) Fall (Acute) Stool guaiac positive (Acute) Date of Admission: 04/27/18 Date of Discharge: 05/14/18 - Primary Discharge Diagnosis Active and Suspected Problems (Last Updated 03/21/18 @ 18:31 by Modesto Mclaughlin DO) Fall (Acute) Stool guaiac positive (Acute) - Secondary Discharge Diagnosis Chronic Problems (Last Updated 03/21/18 @ 18:31 by Modesto Mclaughlin DO) Degenerative joint disease involving multiple joints (Chronic) Paroxysmal atrial fibrillation (Chronic) BPH (benign prostatic hyperplasia) (Chronic) Depression (Chronic) Peripheral arterial occlusive disease (Chronic) Alzheimer's disease (Chronic) Neuropathic pain (Chronic) Debility (Chronic) 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 Acute hypoxia on admission without respiratory failure. ARLENE (obstructive sleep apnea) (Chronic) Central sleep apnea (Chronic) S/P PTCA (percutaneous transluminal coronary angioplasty) (Chronic) Cardiomyopathy (Chronic) SSS (sick sinus syndrome) (Chronic) Autonomic dysfunction (Chronic) HLD (hyperlipidemia) (Chronic) PAD (peripheral artery disease) (Chronic) Coronary artery disease (Chronic) S/P LAD and LCx stenting BPH (benign prostatic hypertrophy) with urinary obstruction (Chronic) Depressive disorder (Chronic) HTN (hypertension) (Chronic) Atrial fibrillation (Chronic) GERD (gastroesophageal reflux disease) (Chronic) History of orchiectomy, unilateral (Chronic) Nephrolithiasis (Chronic) Personality disorder (Chronic) Hospital Course and Treatment Imaging Results: 05/03/18 08:53 Diet: Regular Diet Is pt able to select menu?: Yes Diet Comments: low Na Clinical Impression(s) from Imaging Studies Abdomen X-Ray 04/26/18 18:14 IMPRESSION: Normal x-ray examination of the abdomen and pelvis. Electronically Signed: Serina Grant MD at 4:06 EST , Service support , Chest X-Ray 05/05/18 16:05 IMPRESSION: 1. Stable cardiac pacemaker. 2. No acute cardiopulmonary disease. Electronically Signed: Mike Michelle DO at 16:17 EST Tel [phone], Service support , Labs (Last 48 Hours) 05/10/18 05/10/18 05:25 05:25 WBC 7.5 RBC 4.45 L Hgb 11.5 L Hct 37.7 L MCV 84.7 MCH 25.8 L MCHC 30.5 L RDW 18.7 H RDW Differential 56.7 H Plt Count 225 MPV 10.8 Immature Gran % (Auto) 0.300 Neut % (Auto) 71.5 H Lymph % (Auto) 19.8 Butler % (Auto) 6.1 Eos % (Auto) 2.0 Baso % (Auto) 0.3 Absolute Neuts (auto) 5.4 Absolute Lymphs (auto) 1.49 Total Counted Not Reportable Sodium 144 Potassium 4.3 Chloride 113 H Carbon Dioxide 22.0 Anion Gap 9 BUN 16 Creatinine 1.08 Estim Creat Clear Calc 55.33 Est GFR (MDRD) Af Amer 85 Est GFR (MDRD) Non-Af 70 BUN/Creatinine Ratio 14.8 Glucose 126 H Calcium 8.3 L Operations: None Procedures: None Summary of Care Provided: The patient is a 77 year old Male with below past medical history hospitalized for fall, admitted to TCU with debility, here for rehabilitation, strengthening, prior to extended care facility placement. On TCU, resident had decreasing Hemoglobin, Dr. Jake Giron consulted, performed EGD/colonoscopy, found mild antral gastritis, recommended continue proton pump inhibitor. Resident also had respiratory panel positive for parainfluenza 3. Resident has 5.3CM AAA, consider vascular surgery consultation. Discharge home with spouse, and Home Health Care. Patient Problems: Active and Suspected Problems (Last Updated 03/21/18 @ 18:31 by Modesto Tereletsky, DO) Fall (Acute) Stool guaiac positive (Acute) - Physical Exam Vital Signs Temp Pulse Resp BP Pulse Ox 98.0 F 79 18 120/77 95 05/10/18 15:57 05/10/18 15:57 05/10/18 15:57 05/10/18 15:57 05/10/18 15:57 Oxygen Flow Rate (L/min) 2 Oxygen Delivery Method Room Air Weight: 70.477 kg Body Mass Index (BMI) 23.6 Intake and Output for Last 24 Hours 05/08/18 05/09/18 05/10/18 23:59 23:59 23:59 Intake Total 900 / 900 480 / 480 720 / 720 Balance 900 / 900 480 / 480 720 / 720 Microbiology Past 72 Hours 05/06/18 06:15 Urine Culture - Final Urine Catheter - Catheter Culture exhibits no growth. Laboratory Tests Past 24 Hrs 05/10/18 05/10/18 05:25 05:25 WBC 7.5 RBC 4.45 L Hgb 11.5 L Hct 37.7 L MCV 84.7 MCH 25.8 L MCHC 30.5 L RDW 18.7 H RDW Differential 56.7 H Plt Count 225 MPV 10.8 Immature Gran % (Auto) 0.300 Neut % (Auto) 71.5 H Lymph % (Auto) 19.8 Butler % (Auto) 6.1 Eos % (Auto) 2.0 Baso % (Auto) 0.3 Absolute Neuts (auto) 5.4 Absolute Lymphs (auto) 1.49 Total Counted Not Reportable Sodium 144 Potassium 4.3 Chloride 113 H Carbon Dioxide 22.0 Anion Gap 9 BUN 16 Creatinine 1.08 Estim Creat Clear Calc 55.33 Est GFR (MDRD) Af Amer 85 Est GFR (MDRD) Non-Af 70 BUN/Creatinine Ratio 14.8 Glucose 126 H Calcium 8.3 L Discharge Diet: No Restrictions Discharge Activity: Return to Normal Activity May resume sexual activity in: No Restrictions Weight Bearing Status: Weight bearing as tolerated Call your doctor if you observe: Fever of 101 or Higher, Inability to urinate, Inability to have a bowel movement, Shortness of breath, Chest pain, Uncontrolled pain Home Medications: Medications to take at Discharge Cyanocobalamin [Vitamin B12] 1 tab PO DAILY 06/18/17 Melatonin 10 mg PO QHS 06/18/17 Omeprazole 20 mg PO DAILY 06/18/17 Vit A/Vit C/Vit E/Zinc/Copper [Preservision Areds Softgel] 1 cap PO BID 06/18/17 Duloxetine HCl 60 mg PO BID 03/16/18 Donepezil HCl [Aricept] 10 mg PO QHS 03/22/18 Pregabalin [Lyrica] 300 mg PO QHS 03/22/18 Tamsulosin HCl [Flomax] 0.4 mg PO DAILY@1730 03/22/18 Finasteride [Proscar] 5 mg PO DAILY #30 tablet 03/30/18 Cholecalciferol (VIT D3) [Vitamin D3] 1,000 unit PO DAILY 04/22/18 Oxycodone [Oxyir] 2.5 mg PO Q6H PRN PRN 04/22/18 Menthol/Lanolin/Calamine/Znox [Calmoseptine Ointment] 1 applic TOPICAL 0600,219904/23/18 Mineral Oil/Petrolatum,White [Eucerin] 1 applic TOPICAL 0600,219904/23/18 Acetaminophen [Tylenol Tablet] 650 mg PO Q8H tablet 05/10/18 Guaifenesin Dm [Robitussin Dm] 5 ml PO Q6H PRN PRN udc 05/10/18 Potassium Chloride [K-Dur] 20 meq PO TIDCM #90 tablet 05/10/18 Rosuvastatin Calcium [Crestor] 5 mg PO DAILY #30 tablet 05/10/18 Following Prescrptions Were Given to Patient: Rosuvastatin Calcium [Crestor] 5 mg PO DAILY #30 tablet Potassium Chloride [K-Dur] 20 meq PO TIDCM #90 tablet Primary Care Physician: Stephanie Fuchs MD [Primary Care Provider] - Please follow up with your Primary Care Physician in: 1 week. Please Follow Up With: Don Jaramillo When: JOSE A Disposition: Home with Home Health Minutes spent on discharge:: 35 Patient Condition:: Stable Medical Necessity - Tobacco Use Smoking Status: Current every day smoker Tobacco Use: Cigarettes Meaningful Use Info Meaningful Use Diagnoses (Choose all that apply): None applicable
--- NOTE | 2018-05-10 20:52 | HHNOTE_ITS ---
Home Health Note - Plan Overview of reason of hospitalization: The patient is a 77 year old Male with below past medical history hospitalized for fall, admitted to TCU with debility, here for rehabilitation, strengthening, prior to extended care facility placement. On TCU, resident had decreasing Hemoglobin, Dr. Jake Giron consulted, performed EGD/colonoscopy, found mild antral gastritis, recommended continue proton pump inhibitor. Resident also had respiratory panel positive for parainfluenza 3. Resident has 5.3CM AAA, consider vascular surgery consultation. Discharge home with spouse, and Home Health Care. 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) Anxiety (Chronic) Neuropathy (Chronic) Chronic kidney disease (Chronic) Chronic diastolic heart failure (Chronic) COPD (chronic obstructive pulmonary disease) (Chronic) Stool guaiac positive (Acute) Complete List of Medical Problems (Last Updated 03/21/18 @ 18:31 by Modesto Mclaughlin DO) Degenerative joint disease involving multiple joints (Chronic) Paroxysmal atrial fibrillation (Chronic) BPH (benign prostatic hyperplasia) (Chronic) Depression (Chronic) Peripheral arterial occlusive disease (Chronic) Alzheimer's disease (Chronic) Neuropathic pain (Chronic) Fall (Acute) Debility (Chronic) 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) Anxiety (Chronic) Neuropathy (Chronic) Chronic kidney disease (Chronic) Chronic diastolic heart failure (Chronic) COPD (chronic obstructive pulmonary disease) (Chronic) Stool guaiac positive (Acute) CHF (congestive heart failure) (Chronic) Pulmonary hypertension (Chronic) pacemaker implantation (Chronic) Tobacco abuse (Chronic) AAA (abdominal aortic aneurysm) (Chronic) PVD (peripheral vascular disease) (Chronic) Long-term use of high-risk medication (Chronic) Stage 2 moderate COPD by GOLD classification (Chronic) Acute respiratory failure with hypoxia (Chronic) ARLENE (obstructive sleep apnea) (Chronic) Central sleep apnea (Chronic) S/P PTCA (percutaneous transluminal coronary angioplasty) (Chronic) Cardiomyopathy (Chronic) SSS (sick sinus syndrome) (Chronic) Autonomic dysfunction (Chronic) HLD (hyperlipidemia) (Chronic) PAD (peripheral artery disease) (Chronic) Coronary artery disease (Chronic) BPH (benign prostatic hypertrophy) with urinary obstruction (Chronic) Depressive disorder (Chronic) HTN (hypertension) (Chronic) Atrial fibrillation (Chronic) GERD (gastroesophageal reflux disease) (Chronic) History of orchiectomy, unilateral (Chronic) Nephrolithiasis (Chronic) Personality disorder (Chronic) - Requirements and Reasons Disciplines Needed/Ordered: Physical Therapy Reason for Disciplines: Gait Training, Stair Training, Fall Prevention, Home Safety/Equipment Instruction, Balance and/or Posture Training, Transfer Training Related To: Limited/Poor Endurance, Shortness of Breath with Activity, Physical Impairments, Unsteady Gait/Balance, Fall Risk Patient is unable to leave the home: Without Aid of Supportive Devices (crutch es, cane, wheelchair, walker), Without the assistance of another person - Additional Disciplines Additional Disciplines Needed/Ordered: Occupational Therapy
[2018-05-10] MEDS: Donepezil HCl 10 MG Tablet PO (21:19)
[2018-05-10] MEDS: MELATONIN 10 MG TABLET PO (21:19)
[2018-05-10] MEDS: Pregabalin 75 MG Capsule 300 MG PO (21:19)
[2018-05-10] MEDS: Atorvastatin Calcium 10 MG Tablet PO (21:19)
[2018-05-11 04:18] VITALS: BP 106/72; PULSE 85; O2SAT 94
--- NOTE | 2018-05-11 04:23 | EKG12_ITS ---
Test Reason : CP Blood Pressure : / mmHG Vent. Rate : 070 BPM Atrial Rate : 070 BPM P-R Int : 108 ms QRS Dur : 144 ms QT Int : 424 ms P-R-T Axes : -25 -89 062 degrees QTc Int : 457 ms Electronic atrial pacemaker Left axis deviation Right bundle branch block Abnormal ECG Confirmed by MARCELL HANEY, MARII ([id number]), assignment desk editor GUERITA ONEILL ([id number] on 05/13/2018 2:47:05 PM Referred By: TEE Confirmed By:MARII FAITH MD
--- NOTE | 2018-05-11 04:26 | NURSING ---
Addendum entered by Marion Willis 05/11/18 04:48: Dr. Carlton notified of EKG results. New orders given for nitroglycerin 0.4 mg sublingual. Original Note: Patient c/o chest pain rating it a 5 out of 10. Patient states that he has not ever felt this kind of pain before. Patient states I am not just feeling well. Dr. Carlton notified orders given for EKG.
[2018-05-11] MEDS: NYSTATIN 500,000 UNIT/5 ML UDC 500000 UNIT PO ×4 (04:52→22:01)
[2018-05-11] MEDS: Multivitamin (Healthy Eyes) Capsule 1 CAP PO ×2 (04:53→16:57)
[2018-05-11] MEDS: Finasteride 5 MG Tablet PO (04:53)
[2018-05-11] MEDS: DULoxetine Hcl 60 MG Capsule PO ×2 (04:53→16:58)
[2018-05-11] MEDS: Pantoprazole Sodium 20 MG Tablet PO (04:53)
[2018-05-11] MEDS: Cyanocobalamin 500 MCG Tablet PO (04:53)
[2018-05-11] MEDS: Acetaminophen 325 MG Tablet 650 MG PO ×3 (04:54→22:02)
[2018-05-11] MEDS: Menthol/Lanolin/Calamine/Znox 113 GM Tube 1 APPLIC TOPICAL ×2 (04:56→22:07)
[2018-05-11] MEDS: guaiFENesin Dm 10 ML UDC 5 ML PO (08:16)
[2018-05-11 08:30] VITALS: PULSE 71; RESP 16; O2SAT 98
[2018-05-11] MEDS: Ipratropium/Albuterol Sulfate 3 ML AMPUL.NEB INHALATION ×2 (08:30→13:07)
--- NOTE | 2018-05-11 08:56 | CASEMGMT ---
Social Work Faxed clinical information and orders to [facility]. Proposed discharge date: 05/14/18. PLAN: Discharge to home with spouse and home health care. VIJAYA Glynn
[2018-05-11 13:07] VITALS: PULSE 75; RESP 16; O2SAT 96
[2018-05-11 15:53] VITALS: BP 128/62; PULSE 77; RESP 20; TEMP 36.8; O2SAT 92
[2018-05-11] MEDS: Tamsulosin HCl 0.4 MG Capsule PO (16:58)
[2018-05-11] MEDS: Pregabalin 75 MG Capsule 300 MG PO (22:00)
[2018-05-11] MEDS: Atorvastatin Calcium 10 MG Tablet PO (22:01)
[2018-05-11] MEDS: Donepezil HCl 10 MG Tablet PO (22:01)
[2018-05-11] MEDS: MELATONIN 10 MG TABLET PO (22:01)
[2018-05-11] MEDS: oxyCODONE 5 MG Tablet 2.5 MG PO (22:04)
[2018-05-12] MEDS: Acetaminophen 325 MG Tablet 650 MG PO ×3 (06:07→21:27)
[2018-05-12] MEDS: Finasteride 5 MG Tablet PO (06:07)
[2018-05-12] MEDS: Pantoprazole Sodium 20 MG Tablet PO (06:07)
[2018-05-12] MEDS: Multivitamin (Healthy Eyes) Capsule 1 CAP PO ×2 (06:07→17:09)
[2018-05-12] MEDS: Cyanocobalamin 500 MCG Tablet PO (06:07)
[2018-05-12] MEDS: DULoxetine Hcl 60 MG Capsule PO ×2 (06:07→17:09)
[2018-05-12] MEDS: NYSTATIN 500,000 UNIT/5 ML UDC 500000 UNIT PO ×4 (06:07→21:28)
[2018-05-12] MEDS: Menthol/Lanolin/Calamine/Znox 113 GM Tube 1 APPLIC TOPICAL ×2 (06:14→21:28)
--- NOTE | 2018-05-12 07:01 | NURSING ---
All care was provided to patient in room due to patient being in precautions for parainfluenza virus 3.
--- NOTE | 2018-05-12 08:48 | NURSING ---
pt remains in isolation, all care/treatments provided in pt room
[2018-05-12 15:39] VITALS: BP 116/66; PULSE 88; RESP 18; TEMP 37.4; O2SAT 92
[2018-05-12] MEDS: Tamsulosin HCl 0.4 MG Capsule PO (17:09)
[2018-05-12] MEDS: Pregabalin 75 MG Capsule 300 MG PO (21:27)
[2018-05-12] MEDS: Donepezil HCl 10 MG Tablet PO (21:28)
[2018-05-12] MEDS: Atorvastatin Calcium 10 MG Tablet PO (21:28)
[2018-05-12] MEDS: MELATONIN 10 MG TABLET PO (21:28)
[2018-05-13] MEDS: Menthol/Lanolin/Calamine/Znox 113 GM Tube 1 APPLIC TOPICAL ×2 (06:07→21:31)
[2018-05-13] MEDS: DULoxetine Hcl 60 MG Capsule PO ×2 (06:07→17:26)
[2018-05-13] MEDS: Cyanocobalamin 500 MCG Tablet PO (06:07)
[2018-05-13] MEDS: Acetaminophen 325 MG Tablet 650 MG PO ×3 (06:07→21:33)
[2018-05-13] MEDS: NYSTATIN 500,000 UNIT/5 ML UDC 500000 UNIT PO ×4 (06:07→21:32)
[2018-05-13] MEDS: Multivitamin (Healthy Eyes) Capsule 1 CAP PO ×2 (06:07→17:26)
[2018-05-13] MEDS: Pantoprazole Sodium 20 MG Tablet PO (06:07)
[2018-05-13] MEDS: Finasteride 5 MG Tablet PO (06:07)
[2018-05-13 09:43] VITALS: PULSE 100
[2018-05-13] MEDS: Cholestyramine/Sucrose 4 GM/PACKET PO (14:40)
[2018-05-13 15:46] VITALS: BP 101/63; PULSE 113; RESP 18; TEMP 36.7; O2SAT 97
[2018-05-13] MEDS: Tamsulosin HCl 0.4 MG Capsule PO (17:26)
[2018-05-13] MEDS: MELATONIN 10 MG TABLET PO (21:33)
[2018-05-13] MEDS: Donepezil HCl 10 MG Tablet PO (21:33)
[2018-05-13] MEDS: Pregabalin 75 MG Capsule 300 MG PO (21:33)
[2018-05-13] MEDS: Atorvastatin Calcium 10 MG Tablet PO (21:33)
[2018-05-14] MEDS: DULoxetine Hcl 60 MG Capsule PO (05:00)
[2018-05-14] MEDS: Pantoprazole Sodium 20 MG Tablet PO (05:00)
[2018-05-14] MEDS: Menthol/Lanolin/Calamine/Znox 113 GM Tube 1 APPLIC TOPICAL (05:00)
[2018-05-14] MEDS: Acetaminophen 325 MG Tablet 650 MG PO (05:00)
[2018-05-14] MEDS: Finasteride 5 MG Tablet PO (05:00)
[2018-05-14] MEDS: Cyanocobalamin 500 MCG Tablet PO (05:00)
[2018-05-14] MEDS: NYSTATIN 500,000 UNIT/5 ML UDC 500000 UNIT PO (05:00)
[2018-05-14] MEDS: Multivitamin (Healthy Eyes) Capsule 1 CAP PO (05:00)
[2018-05-14 07:36] LABS: Absolute Lymphocyte Count 0.98 X10^3/ul (0.83-4.51); Basophil# 0.04 X10^3/uL; Basophil% 0.4 % (0-1); Eosinophil# 0.26 X10^3/uL; Eosinophils% 2.4 % (0-5); Hematocrit 36.7 % (40-54); Hemoglobin 11.3 g/dl (13.0-16.5); Lymphocyte # 0.98 X10^3/ul (4.0); Mean Corp Hgb Conc 30.8 g/gl (32-36); Mean Corpuscular Hgb 25.6 pg (27.0-32.0); Mean Corpuscular Volume 83.2 fL (80-94); Mean Platelet Vol. 10.5 fl (6.2-12.0); Monocyte# 1.59 X10^3/uL; Monocyte% 14.6 % (0-10); Neutrophil # 7.97 X10^3/uL (2.7-7.7); Neutrophil % 73.3 % (47-70); Platelet Count 254 K/mm3 (150-450); RBC Distribution Width CV 17.9 % (11.6-14.6); RBC Distribution Width SD 55.5 fl (35.1-43.9); Red Blood Count 4.41 M/mm3 (4.6-6.2); White Blood Count 10.9 K/mm3 (4.4-11.0)
[2018-05-14 07:38] LABS: Differential Indicated SCAN CRITERIA MET; POSITIVE COUNT NO; POSITIVE DIFFERENTIAL YES; POSITIVE MORPHOLOGY NO
[2018-05-14 08:07] LABS: Hypochromasia RARE; Platelet Estimate ADEQUATE (ADEQ); Platelet Morphology LARGE
[2018-05-14 08:21] LABS: ALB/GLOB Ratio 0.5 RATIO (0.9-2.4); AST(SGOT) 10 U/L (15-37); Alanine Aminotransfer ALT/SGPT 13 U/L (16-61); Albumin, Serum 2.3 g/dL (3.2-5.0); Alkaline Phosphatase 81 U/L (45-117); Anion Gap 11 (5-15); BUN 19 mg/dL (7-18); Calcium,Total 8.9 mg/dL (8.5-10.1); Chloride 114 mmol/L (98-107); EST Glomerular Filtration Rate 77 mL/min (>60); Est Glom Filt Rate - Afr Amer 93 mL/min (>60); Estimated Creatinine Clearance 59.71 ml/min; Globulin 4.2 g/dL (2.2-4.2); Glucose 81 mg/dL (74-106); Potassium 4.5 mmol/L (3.5-5.1); Protein, Total 6.5 g/dL (6.4-8.2); Sodium Level 144 mmol/L (136-145); T4 Free Direct 0.86 ng/dL (0.76-1.46); Thyroid Stim Hormone (TSH) 0.61 uIU/mL (0.358-3.74)
--- NOTE | 2018-05-14 10:32 | NURSING ---
pt remains in isolation this shift, all care/treatments provided in pt room
[2018-05-14 12:20] VITALS: BP 138/86; PULSE 81; RESP 20; TEMP 36.6; O2SAT 95
--- NOTE | 2018-05-19 14:46 | MDS.RN ---
Information for the mds was obtained from review of the clinical record, interview of resident, staff, and direct observation of resident's care.
== END 2018-05-14 11:15 | disposition home health service (06) | DRG 948 ==
PROVIDERS: Admitting Provider Family Medicine Geriatric Medicine; Family Provider Internal Medicine; PCP Internal Medicine; Visit Provider Family Medicine Geriatric Medicine
DX: R53.81 Other malaise (principal); I13.0 Hypertensive heart and chronic kidney disease with heart failure and stage 1 through stage 4 chronic kidney disease, or unspecified chronic kidney disease; I50.32 Chronic diastolic (congestive) heart failure; G30.9 Alzheimer's disease, unspecified; F02.80 Dementia in other diseases classified elsewhere, unspecified severity, without behavioral disturbance, psychotic disturbance, mood disturbance, and anxiety; I25.10 Atherosclerotic heart disease of native coronary artery without angina pectoris; K21.9 Gastro-esophageal reflux disease without esophagitis; E78.5 Hyperlipidemia, unspecified; N40.0 Benign prostatic hyperplasia without lower urinary tract symptoms; G89.29 Other chronic pain; I48.2 Chronic atrial fibrillation; J44.9 Chronic obstructive pulmonary disease, unspecified; G62.9 Polyneuropathy, unspecified; F32.9 Major depressive disorder, single episode, unspecified; G47.33 Obstructive sleep apnea (adult) (pediatric); I48.0 Paroxysmal atrial fibrillation; M51.36 Other intervertebral disc degeneration, lumbar region; R29.6 Repeated falls; I27.20 Pulmonary hypertension, unspecified; I73.9 Peripheral vascular disease, unspecified; F60.9 Personality disorder, unspecified; F17.210 Nicotine dependence, cigarettes, uncomplicated; Z95.0 Presence of cardiac pacemaker; N18.3 Chronic kidney disease, stage 3 (moderate); F03.90 Unspecified dementia, unspecified severity, without behavioral disturbance, psychotic disturbance, mood disturbance, and anxiety; B34.8 Other viral infections of unspecified site; D63.8 Anemia in other chronic diseases classified elsewhere
CPT/HCPCS: 36415; 71045; 74019; 80048; 80053; 81001; 82274; 83630; 84439; 84443; 85018; 85025; 87086; 87177; 87209; 87493; 87506; 87633; 92526; 92610; 93005; 93970; 94640; 97110; 97116; 97162; 97166; 97530; 97535; 97802; 99406; J7030; A4216

== ENCOUNTER 2018-05-03 05:34 | Day surgery (SDC) | payer MEDICARE, OTHER, SELFPAY ==
[2018-04-23 15:54] VITALS: BMI 23.6
[2018-05-03] VITALS (9 sets, daily range): BP systolic 75–131; BP diastolic 54–72; PULSE 70–92; RESP 16–18; TEMP 36.2–37.4; O2SAT 92–94; BMI 23.6
--- NOTE | 2018-05-03 | GASB_PTH ---
PATIENT: JORGE HENDRICKSON Jr. LOC: EN U#:[id number] AGE/SX: 77/M ROOM: RE05/03/[address]: Dr. Jake Giron MD : 1940 BED: DIS: 05/03/2018 SPEC #: [id number] RECD: 05/03/18 09:40 STATUS: ERIN ZACH #: [id number] JEWEL: 05/03/18 00:[address]: Jake Giron DEPT: SURGICAL PATHOLOGY RECD BY: Ehsan Means ENTERED: 05/03/18 11:34 SP TYPE: Gastric Bx OTHR DR: Dr. Stephanie Fuchs MD Tissues: A - Gastric mucous membrane B - Stomach, NOS Procedures: Surgery Specimen Level IV HEADER OPERATION: [place] [place] DIAGNOSIS: Anemia TISSUE SUBMITTED: A - Antral biopsy for histo and H. pylori, B - Body of stomach biopsy MICROSCOPIC DIAGNOSIS A. Gastric antrum, biopsy: Mild chronic gastritis. See comment. B. Gastric body, biopsy: Minimal chronic inflammation. AM:jaskaran 05/04/18 COMMENT A. The results of immunohistochemistry for Helicobacter pylori will be reported separately ([id number]). MICROSCOPIC DESCRIPTION Slides are reviewed. GROSS DESCRIPTION A - Received in fixative is one container labeled with the patient's name and designated biopsy gastric antrum. The specimen consists of one irregular fragment of light riley soft tissue that measures 0.5 x 0.2 x 0.1 cm. The specimen is totally submitted in one cassette. B - Received in fixative is one container labeled with the patient's name and designated biopsy body of stomach. The specimen consists of one irregular fragment of light riley soft tissue that measures 0.6 x 0.3 x 0.1 cm. The specimen is totally submitted in one cassette. / SJ:jaskaran 05/03/18 TC:3 CPT: 14206 x2
--- NOTE | 2018-05-03 06:30 | IMM_PTH ---
PATIENT: JORGE HENDRICKSON Jr. LOC: EN U#:[id number] AGE/SX: 77/M ROOM: RE05/03/[address]: Dr. Jake Giron MD : 1940 BED: DIS: 05/03/2018 SPEC #: [id number] RECD: 05/03/18 15:34 STATUS: ERIN REMichael #: [id number] JEWEL: 05/03/18 06:[address]: Jake Giron DEPT: IMMUNOHISTOCHEMISTRY RECD BY: Patti Cardoza ENTERED: 05/03/18 15:34 SP TYPE: IMMUNO OTHR DR: Dr. Stephanie Fuchs MD Tissues: A - Stomach, NOS Procedures: H Pylori (initial) PHYSICIAN & INSTITUTION [place] [address] SPECIMEN INFORMATION: Tissue Source: A - Antral biopsy Clinical Info: Anemia Specimen Number: [id number] CPT code: 70772 METHODOLOGY: Deparaffinized sections of prefer/formalin-fixed tissue or PAP/DQ stained slides are incubated with monoclonal/polyclonal antibodies/oligonucleotide probes. Localization is made via biotin free immunoperoxidase method. Appropriate controls are performed and reacted as expected. Results on target cell population are indicated in the following table: RESULTS: ANTIBODY / CLONE RESULT Block A H Pylori (polyclonal) negative These tests were developed and their performance characteristics determined by [facility]. They may not have been cleared or approved by the U.S. Food and Drug Administration. The FDA has determined that such clearance or approval is not necessary. INTERPRETATION: A. Antral biopsy: Negative for Helicobacter pylori organisms. AM:jaskaran 05/05/18
--- NOTE | 2018-05-03 06:59 | OP.ENDO_ITS ---
Patient Name: Hunter Parker Procedure Date: 05/03/2018 6:12 AM Date of : 1940 Age: 77 Procedure: Upper GI endoscopy Indications: Heme positive stool Providers: Jake Giron MD Referring MD: Jake Giron MD Medicines: See the Anesthesia note for documentation of the administered medications Complications: No immediate complications. Procedure: Pre-Anesthesia Assessment: - Prior to the procedure, a History and Physical was performed, and patient medications and allergies were reviewed. The patient's tolerance of previous anesthesia was also reviewed. The risks and benefits of the procedure and the sedation options and risks were discussed with the patient. All questions were answered, and informed consent was obtained. Prior Anticoagulants: The patient has taken no previous anticoagulant or antiplatelet agents. ASA Grade Assessment: II - A patient with mild systemic disease. After reviewing the risks and benefits, the patient was deemed in satisfactory condition to undergo the procedure. After obtaining informed consent, the endoscope was passed under direct vision. Throughout the procedure, the patient's blood pressure, pulse, and oxygen saturations were monitored continuously. The gastroscope was introduced through the mouth, and advanced to the second part of duodenum. The upper GI endoscopy was accomplished without difficulty. The patient tolerated the procedure well. Scope In: 6:33:41 AM Scope Out: 6:37:54 AM Total Procedure Duration Time 0 hours 4 minutes 13 seconds Findings: The examined esophagus was normal. The Z-line was regular and was found 40 cm from the incisors. Diffuse mildly erythematous mucosa without bleeding was found in the gastric antrum. Biopsies were taken with a cold forceps for histology. Diffuse mildly erythematous mucosa without bleeding was found in the gastric body. Biopsies were taken with a cold forceps for histology. The examined duodenum was normal. Impression: - Normal esophagus. - Z-line regular, 40 cm from the incisors. - Erythematous mucosa in the antrum. Biopsied. - Erythematous mucosa in the gastric body. Biopsied. - Normal examined duodenum. Recommendation: - Discharge patient to a [facility]. - Resume previous diet. - Continue present medications. - Telephone my office for pathology results in 1 week. Mild gastritis may correlate with hem positive stool but does not appear to be a source of significant blood loss Procedure Code(s): --- Professional --- 82381, Esophagogastroduodenoscopy, flexible, transoral; with biopsy, single or multiple Diagnosis Code(s): --- Professional --- K31.89, Other diseases of stomach and duodenum R19.5, Other fecal abnormalities CPT copyright 2017 [employer]. All rights reserved. The codes documented in this report are preliminary and upon medical biller/coder review may be revised to meet current compliance requirements. Jake Giron MD 05/03/2018 6:58:45 AM This report has been signed electronically. Number of Addenda: 0 Note Initiated On: 05/03/2018 6:12 AM
--- NOTE | 2018-05-03 07:02 | OP.ENDO_ITS ---
Patient Name: Hunter Parker Procedure Date: 05/03/2018 6:39 AM Date of : 1940 Age: 77 Procedure: Colonoscopy Indications: Heme positive stool Providers: Jake Giron MD Referring MD: Jake Giron MD Medicines: See the Anesthesia note for documentation of the administered medications Patient Profile: Last Colonoscopy: more than 10 years ago. Complications: No immediate complications. Procedure: Pre-Anesthesia Assessment: - Prior to the procedure, a History and Physical was performed, and patient medications and allergies were reviewed. The patient's tolerance of previous anesthesia was also reviewed. The risks and benefits of the procedure and the sedation options and risks were discussed with the patient. All questions were answered, and informed consent was obtained. Prior Anticoagulants: The patient has taken no previous anticoagulant or antiplatelet agents. ASA Grade Assessment: II - A patient with mild systemic disease. After reviewing the risks and benefits, the patient was deemed in satisfactory condition to undergo the procedure. After I obtained informed consent, the scope was passed under direct vision. Throughout the procedure, the patient's blood pressure, pulse, and oxygen saturations were monitored continuously. The Colonoscope was introduced through the anus and advanced to the cecum, identified by appendiceal orifice and ileocecal valve. The colonoscopy was performed without difficulty. The patient tolerated the procedure well. The quality of the bowel preparation was adequate to identify polyps. The ileocecal valve was photographed. Scope In: 6:42:02 AM Scope Withdrawal Time 0 hours 7 minutes 58 seconds Scope Out: 6:53:57 AM Total Procedure Duration Time 0 hours 11 minutes 55 seconds Findings: The digital rectal exam findings include internal hemorrhoids that prolapse with straining, but spontaneously regress to the resting position (Grade II). Lax anal tone Scattered diverticula were found in the sigmoid colon. The exam was otherwise without abnormality. Impression: - Internal hemorrhoids that prolapse with straining, but spontaneously regress to the resting position (Grade II) found on digital rectal exam. - Diverticulosis in the sigmoid colon. - The examination was otherwise normal. - No specimens collected. Recommendation: - Discharge patient to a [facility]p. - Resume previous diet. - Continue present medications. - Repeat colonoscopy in 10 years for screening purposes. No colonic source for blood loss or anemia Procedure Code(s): --- Professional --- 14855, Colonoscopy, flexible; diagnostic, including collection of specimen(s) by brushing or washing, when performed (separate procedure) Diagnosis Code(s): --- Professional --- K64.1, Second degree hemorrhoids R19.5, Other fecal abnormalities K57.30, Diverticulosis of large intestine without perforation or abscess without bleeding CPT copyright 2017 [employer]. All rights reserved. The codes documented in this report are preliminary and upon hot tamale worker review may be revised to meet current compliance requirements. Jake Giron MD 05/03/2018 7:02:19 AM This report has been signed electronically. Number of Addenda: 0 Note Initiated On: 05/03/2018 6:39 AM
== END 2018-05-03 07:41 | disposition skilled nursing facility (03) ==
LOC: EN 05:36 → AC 05:36
PROVIDERS: Family Provider Internal Medicine; PCP Internal Medicine; Referring Provider Surgery; Visit Provider Surgery
PROC: 0DJD8ZZ Inspection of Lower Intestinal Tract, Via Natural or Artificial Opening Endoscopic (ICD-10-PCS; CPT 45378; principal; 2018-05-03 06:25)
DX: K29.50 Unspecified chronic gastritis without bleeding (principal); K57.30 Diverticulosis of large intestine without perforation or abscess without bleeding; K64.1 Second degree hemorrhoids; I48.0 Paroxysmal atrial fibrillation; I48.2 Chronic atrial fibrillation; I49.5 Sick sinus syndrome; I13.0 Hypertensive heart and chronic kidney disease with heart failure and stage 1 through stage 4 chronic kidney disease, or unspecified chronic kidney disease; I50.32 Chronic diastolic (congestive) heart failure; I25.10 Atherosclerotic heart disease of native coronary artery without angina pectoris; N18.3 Chronic kidney disease, stage 3 (moderate); J44.9 Chronic obstructive pulmonary disease, unspecified; I27.20 Pulmonary hypertension, unspecified; E78.5 Hyperlipidemia, unspecified; I73.9 Peripheral vascular disease, unspecified; G47.33 Obstructive sleep apnea (adult) (pediatric); N40.0 Benign prostatic hyperplasia without lower urinary tract symptoms; G30.9 Alzheimer's disease, unspecified; F02.80 Dementia in other diseases classified elsewhere, unspecified severity, without behavioral disturbance, psychotic disturbance, mood disturbance, and anxiety; K21.9 Gastro-esophageal reflux disease without esophagitis; F32.9 Major depressive disorder, single episode, unspecified; F41.9 Anxiety disorder, unspecified; F60.9 Personality disorder, unspecified; F17.210 Nicotine dependence, cigarettes, uncomplicated; Z79.82 Long term (current) use of aspirin; Z79.891 Long term (current) use of opiate analgesic; Z79.899 Other long term (current) drug therapy; Z87.11 Personal history of peptic ulcer disease; Z86.718 Personal history of other venous thrombosis and embolism; Z85.828 Personal history of other malignant neoplasm of skin; Z95.5 Presence of coronary angioplasty implant and graft; Z95.0 Presence of cardiac pacemaker
CPT/HCPCS: 43239; 45378; 88305; 88342; J7120

== ENCOUNTER 2018-06-20 06:15 | Day surgery (SDC) | payer MEDICARE, OTHER, SELFPAY ==
[2018-05-03 05:45] VITALS: BMI 23.6
[2018-06-20] VITALS (7 sets, daily range): BP systolic 79–122; BP diastolic 59–71; PULSE 70–80; RESP 16; TEMP 36.3–36.8; O2SAT 93–99; BMI 23.0
--- NOTE | 2018-06-20 07:30 | RAD_ITS ---
STUDY: X-RAY - CERVICAL SPINE REASON FOR EXAM: Male, 77 years old. Facet block TECHNIQUE: 5 fluoroscopic view(s) of the cervical spine were obtained. COMPARISON: None FINDINGS: Fluoroscopic guidance was provided during C3-C6 facet block. Correlation with the procedure report is recommended RAD/Cerv Spine 4 or 5 Views IMPRESSION: As above. Electronically Signed: Timothy Lai, at 14:56 EST Tel , Service support ,
[2018-06-20] MEDS: MethylPREDNISolone Acetate 80 MG/ML Vial (07:41)
[2018-06-20] MEDS: Bupivacaine 0.25% 30 ML Vial (07:42)
--- NOTE | 2018-06-20 08:01 | PCM.OPRPT ---
Problem List (1) DDD (degenerative disc disease), cervical Status: Chronic (2) Spondylosis without myelopathy or radiculopathy, cervical region Status: Chronic Report of Operation Date of Procedure: 06/20/18 Pre-Operative Diagnosis: Cervical spondylosis, cervical degenerative disc disease, cervical facet arthropathy Post-Operative Diagnosis: Cervical spondylosis, cervical degenerative disc disease, cervical facet arthropathy Surgery/Procedure Performed:: Left-sided cervical facet steroid injection C3, C4, C5, C6 Description of Surgical Findings:: PROCEDURE: Left-sided cervical facet steroid injection C3, C4, C5, C6 PREOPERATIVE DIAGNOSES: Cervical spondylosis, cervical degenerative disc disease, and cervical facet arthropathy POSTOPERATIVE DIAGNOSES: Cervical spondylosis, cervical degenerative disc disease, and cervical facet arthropathy ANESTHESIA: MAC COMPLICATIONS: None BLOOD LOSS: Minimal PROCEDURE IN DETAIL: History and physical today was reviewed. Risks and benefits of the procedure were explained. The patient understood, agreed to our procedure, and informed consent was obtained. IV inserted per routine protocol. The patient was taken to the operating room, placed in a prone position with a pillow positioned underneath the chest. The neck area was prepped and draped in a sterile fashion using iodine x3. Under fluoroscopy guidance, on AP view, C3 through C6 vertebral bodies are visualized starting on the left C3 ending on the left C6 passing through the C4-C5 using a 25-gauge 3-1/2 inch spinal needle the needle was advanced via the skin the tip of the needle's maneuver and directed towards the epiphyseal junction of each corresponding vertebra once the tip of the needle was at the vicinity of the medial branch and contact with the bone the needle pulled approximately 2 mm of the bone after negative aspiration for blood or CSF and confirmation of AP as well as oblique view a total of 4 cc of preservative-free 0.25% Marcaine with 80 mg of Depo-Medrol were injected in divided doses between those 4 levels the needles were then removed intact patient experienced no signs or symptoms intrathecal or intravascular injection patient experienced no paresthesia the procedure was completed without any apparent difficulty any complication the patient appeared to tolerate well. ASSESSMENT AND PLAN: This is a 77-year-old Male with cervical spondylosis, cervical degenerative disc disease, and cervical facet arthropathy, status post left-sided cervical facet steroid injection C3 through C6. The patient will continue his current medications. The patient will follow up in approximately 2 weeks fo reevaluation.
--- NOTE | 2018-06-20 08:10 | OP.PCM_ITS ---
Problem List (1) DDD (degenerative disc disease), cervical Status: Chronic (2) Spondylosis without myelopathy or radiculopathy, cervical region Status: Chronic Report of Operation Date of Procedure: 06/20/18 Pre-Operative Diagnosis: Cervical spondylosis, cervical degenerative disc disease, cervical facet arthropathy Post-Operative Diagnosis: Cervical spondylosis, cervical degenerative disc disease, cervical facet arthropathy Surgery/Procedure Performed:: Left-sided cervical facet steroid injection C3, C4, C5, C6 Description of Surgical Findings:: PROCEDURE: Left-sided cervical facet steroid injection C3, C4, C5, C6 PREOPERATIVE DIAGNOSES: Cervical spondylosis, cervical degenerative disc disease, and cervical facet arthropathy POSTOPERATIVE DIAGNOSES: Cervical spondylosis, cervical degenerative disc disease, and cervical facet arthropathy ANESTHESIA: MAC COMPLICATIONS: None BLOOD LOSS: Minimal PROCEDURE IN DETAIL: History and physical today was reviewed. Risks and benefits of the procedure were explained. The patient understood, agreed to our procedure, and informed consent was obtained. IV inserted per routine protocol. The patient was taken to the operating room, placed in a prone position with a pillow positioned underneath the chest. The neck area was prepped and draped in a sterile fashion using iodine x3. Under fluoroscopy guidance, on AP view, C3 through C6 vertebral bodies are visualized starting on the left C3 ending on the left C6 passing through the C4-C5 using a 25-gauge 3-1/2 inch spinal needle the needle was advanced via the skin the tip of the needle's maneuver and directed towards the epiphyseal junction of each corresponding vertebra once the tip of the needle was at the vicinity of the medial branch and contact with the bone the needle pulled approximately 2 mm of the bone after negative aspiration for blood or CSF and confirmation of AP as well as oblique view a total of 4 cc of preservative-free 0.25% Marcaine with 80 mg of Depo- Medrol were injected in divided doses between those 4 levels the needles were then removed intact patient experienced no signs or symptoms intrathecal or in travascular injection patient experienced no paresthesia the procedure was completed without any apparent difficulty any complication the patient appeared to tolerate well. ASSESSMENT AND PLAN: This is a 77-year-old Male with cervical spondylosis, cervical degenerative disc disease, and cervical facet arthropathy, status post left-sided cervical facet steroid injection C3 through C6. The patient will continue his current medications. The patient will follow up in approximately 2 weeks fo reevaluation.
== END 2018-06-20 08:39 | disposition home or self-care (01) ==
LOC: SDC 06:16 → AC 06:17
PROVIDERS: Family Provider Internal Medicine; PCP Internal Medicine; Referring Provider Anesthesiology Pain Medicine; Visit Provider Anesthesiology Pain Medicine
PROC: 3E0U3BZ Introduction of Anesthetic Agent into Joints, Percutaneous Approach (ICD-10-PCS; CPT 64490; principal; 2018-06-20 07:25)
DX: M50.30 Other cervical disc degeneration, unspecified cervical region (principal); M47.892 Other spondylosis, cervical region; I13.0 Hypertensive heart and chronic kidney disease with heart failure and stage 1 through stage 4 chronic kidney disease, or unspecified chronic kidney disease; N18.4 Chronic kidney disease, stage 4 (severe); I50.9 Heart failure, unspecified; J44.9 Chronic obstructive pulmonary disease, unspecified; I25.10 Atherosclerotic heart disease of native coronary artery without angina pectoris; K58.9 Irritable bowel syndrome, unspecified; E78.00 Pure hypercholesterolemia, unspecified; K21.9 Gastro-esophageal reflux disease without esophagitis; Z79.899 Other long term (current) drug therapy; I25.2 Old myocardial infarction; Z86.010 Personal history of colon polyps; Z86.73 Personal history of transient ischemic attack (TIA), and cerebral infarction without residual deficits; Z86.718 Personal history of other venous thrombosis and embolism; Z85.828 Personal history of other malignant neoplasm of skin
CPT/HCPCS: 64490; 64491; 64492; 72050; J7120

== ENCOUNTER 2018-06-24 11:14 | Inpatient (IN) | payer MEDICARE, OTHER, SELFPAY ==
[2018-06-20 06:43] VITALS: BMI 23.0
[2018-06-24] VITALS (12 sets, daily range): BP systolic 105–156; BP diastolic 55–94; PULSE 71–95; RESP 15–20; TEMP 36.4–36.9; O2SAT 93–99; BMI 24.0; BMI 22.1; BMI 22.2
--- NOTE | 2018-06-24 11:29 | CT_ITS ---
STUDY: CT BRAIN WITHOUT CONTRAST REASON FOR EXAM: Male, 77 years old. Confusion. Left-sided weakness. History of stroke. RADIATION DOSAGE (If Supplied By Facility): CTDIvol = ( 44.99 ) mGy, DLP = ( 762.36 ) mGycm TECHNIQUE: Transaxial CT imaging of the brain was performed without administration of intravenous contrast material. Individualized dose optimization techniques were used for this CT. COMPARISON: Comparison is made with prior study dated April 22, 2018. FINDINGS: Normal soft tissue structures. Normal calvarium. There is mild cerebral atrophy with widening of the extra-axial spaces and ventricular dilatation. There are areas of decreased attenuation within the white matter tracts of the supratentorial brain, consistent with microvascular disease changes. Stable old bilateral lacunar infarcts in the basal ganglia and left thalamus. Normal brainstem. There is mild cerebellar atrophy. There is no intracranial hemorrhage. There are no findings of an acute ischemic infarction. Mucosal thickening of the maxillary sinuses bilaterally as well as the ethmoid sinuses. CT/Brain/Head without Contrast IMPRESSION: Chronic involutional changes of the brain. Electronically Signed: Stef Carlton, at 12:39 EST , Service support ,
--- NOTE | 2018-06-24 11:29 | EKG12_ITS ---
Test Reason : WEAKNESS Blood Pressure : / mmHG Vent. Rate : 070 BPM Atrial Rate : 070 BPM P-R Int : 166 ms QRS Dur : 138 ms QT Int : 400 ms P-R-T Axes : -08 -85 017 degrees QTc Int : 432 ms Atrial-paced rhythm Left axis deviation Right bundle branch block Abnormal ECG Confirmed by ALDEN HANEY, MILDRED ([id number]), film editor supervisor GUERITA ONEILL ([id number]) on 06/28/2018 9:14:55 AM Referred By: PETERSON Confirmed By:MILDRED RUANO MD
[2018-06-24 11:53] LABS: Prothrombin Time (Protime)PT. 12.8 SECONDS (11.7-14.9)
[2018-06-24 11:54] LABS: Partial Thromboplast Time 26.4 Seconds (24.1-36.2)
[2018-06-24 11:57] LABS: Absolute Neutrophil Count 9.8 X10^3/uL (2.0-7.7); Basophil# 0.02 X10^3/uL; Basophil% 0.2 % (0-1); Eosinophil# 0.05 X10^3/uL; Eosinophils% 0.4 % (0-5); Hematocrit 38.3 % (40-54); Hemoglobin 11.4 g/dl (13.0-16.5); Lymphocyte % 8.6 % (19-41); Mean Corp Hgb Conc 29.8 g/gl (32-36); Mean Corpuscular Hgb 25.1 pg (27.0-32.0); Mean Corpuscular Volume 84.4 fL (80-94); Mean Platelet Vol. 10.2 fl (6.2-12.0); Monocyte# 0.71 X10^3/uL; Monocyte% 6.1 % (0-10); Neutrophil # 9.78 X10^3/uL (2.7-7.7); Neutrophil % 84.5 % (47-70); Platelet Count 141 K/mm3 (150-450); RBC Distribution Width SD 67.4 fl (35.1-43.9); Red Blood Count 4.54 M/mm3 (4.6-6.2); White Blood Count 11.6 K/mm3 (4.4-11.0)
[2018-06-24 12:00] LABS: Differential Indicated SCAN CRITERIA MET; POSITIVE COUNT NO; POSITIVE DIFFERENTIAL NO; POSITIVE MORPHOLOGY YES
[2018-06-24 12:06] LABS: Anion Gap 5 (5-15); BUN 22 mg/dL (7-18); BUN/Creat Ratio 21.8 RATIO (10-20); Calcium,Total 8.6 mg/dL (8.5-10.1); Chloride 107 mmol/L (98-107); Creatinine, Serum 1.01 mg/dL (0.70-1.30); EST Glomerular Filtration Rate 76 mL/min (>60); Est Glom Filt Rate - Afr Amer 92 mL/min (>60); Estimated Creatinine Clearance 61.23 ml/min; Glucose 109 mg/dL (74-106); Potassium 4.6 mmol/L (3.5-5.1); Sodium Level 141 mmol/L (136-145)
--- NOTE | 2018-06-24 12:11 | ED.VIS.GEN ---
History of Present Illness Chief Complaint: Weakness Informant: Patient Onset: Today Context: Sudden Onset Timing: Continuous Quality: Unable to use left side Location: Home Current Severity: Mild Maximum Severity: Moderate Worsened by: Nothing Relieved by: Nothing Associated Symptoms: Confusion Narrative: Patient is a 77-year-old male who was last known well at 930 prior to taking a shower. Symptoms started after he took a shower. He states prior to arrival he was unable to use his left arm or leg. Duration of symptoms 15-20 minutes, he believes. Patient reports global headache. He has no other complaints. Prior similar symptoms: No Recent Illness/Hospitalization: No - Past Medical History (1) AAA (abdominal aortic aneurysm) Status: Chronic (2) Acute respiratory failure with hypoxia Status: Chronic Comment: Suspected chronic. Acute hypoxia on admission without respiratory failure. 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 (4) Anxiety Status: Chronic (5) Atrial fibrillation Status: Chronic Past Medical History - Allergies and Home Meds Allergies/Adverse Reactions: Allergies Penicillins Allergy (Severe, Verified 06/24/18 11:18) Anaphylaxis adhesive Allergy (Verified 06/24/18 11:18) Rash Sulfa (Sulfonamide Antibiotics) Allergy (Verified 06/24/18 11:18) Rash lactose Adverse Reaction (Unknown, Verified 06/24/18 11:18) GI UPSET diazepam [From Valium] Adverse Reaction (Verified 06/24/18 11:18) hyper opposite effect desired HYPER OPPOSITE EFFECT DESIRED niacin [From Niaspan Extended-Release] Adverse Reaction (Verified 06/24/18 11:18) low bp LOW BP simvastatin Adverse Reaction (Verified 06/24/18 11:18) Pain in joints Primary Care Physician: Stephanie Fuchs MD [Primary Care Provider] - Prior records reviewed: Yes Surgical History: angioplasty, appendectomy, cholecystectomy, herniorrhaphy, pacemaker implantation, TURP, - - Prostatectomy. Lives: Spouse/ Significant Other Smoking Status: Current every day smoker Alcohol: None - Family History Paternal Family History: Family History (Last Reviewed 04/22/18 @ 17:26 by BERENICE Wheatley) Father CAD (coronary artery disease) Mother Breast cancer Arthritis CAD (coronary artery disease) Hypertension Sister CVA (cerebral vascular accident) Diabetes Hypertension Son CAD (coronary artery disease) Hypertension Family History: Reports: Heart Disease, Renal Disease Sibling Family History: Family History (Last Reviewed 04/22/18 @ 17:26 by BERENICE Wheatley) Father CAD (coronary artery disease) Mother Breast cancer Arthritis CAD (coronary artery disease) Hypertension Sister CVA (cerebral vascular accident) Diabetes Hypertension Son CAD (coronary artery disease) Hypertension Family History: Reports: Diabetes, Heart Disease Offspring Family History: Family History (Last Reviewed 04/22/18 @ 17:26 by BERENICE Wheatley) Father CAD (coronary artery disease) Mother Breast cancer Arthritis CAD (coronary artery disease) Hypertension Sister CVA (cerebral vascular accident) Diabetes Hypertension Son CAD (coronary artery disease) Hypertension Family History: Reports: Heart Disease Maternal Family History: Family History (Last Reviewed 04/22/18 @ 17:26 by BERENICE Wheatley) Father CAD (coronary artery disease) Mother Breast cancer Arthritis CAD (coronary artery disease) Hypertension Sister CVA (cerebral vascular accident) Diabetes Hypertension Son CAD (coronary artery disease) Hypertension Family History: Reports: Cancer, Heart Disease Review of Systems General: Denies: Chills, Fever, Sweats Eyes: Denies: Visual changes - bilaterally, Blurred Vision - bilaterally, Diplopia ENT: Denies: Bilateral ear pain, Rhinorrhea, Sore throat Cardiovascular: Denies: Chest pain, Palpitations, Heart racing Respiratory: Denies: Dyspnea, Cough, Dyspnea on exertion, Orthopnea, Paroxysmal nocturnal dyspnea Gastrointestinal: Denies: Abdominal pain, Nausea, Vomiting, Diarrhea, Melena, Hematochezia Musculoskeletal: Denies: Neck pain, Back pain, Extremity Pain Skin: Denies: Rash Neurological: Reports: Headache, Weakness, Parasthesia, Numbness, -, - - Headache is global. Neurologic symptoms were on the left. Endocrine: Denies: Polyuria, Polydipsia Hematologic: Denies: Easy bruising, Easy bleeding Allergy: Denies: Uticaria, Swelling of the mouth Physical Exam Vital Signs/Narrative: Vital Signs Temp Pulse Resp BP Pulse Ox 06/24/18 11:31 90 15 151/91 H 99 06/24/18 11:18 98.2 F 95 20 H 145/86 H 98 Inital Vital Signs reviewed: Yes General: Well nourished, Well developed, No Acute Distress Head: Normocephalic, Atraumatic Eyes: Perrl, EOMI, - - There is no nystagmus. Negative for: Pale conjunctiva, Scleral icterus ENT: Moist mucous membranes, No rhinorrhea, TM's clear Neck: Supple, Nontender, No lymphadenopathy, No JVD, - - No carotid bruits noted Cardiovascular: Regular rate, Regular rhythm, No murmurs, Normal S1, Normal S2 Respiratory: No distress, CTA bilaterally, Chest nontender. Negative for: Decreased Air Movement Abdomen: Soft, Nontender, Nondistended, Normal bowel sounds, No masses Back: Nontender, Normal Inspection. Negative for: CVA tenderness Skin: Normal color, No rash Neurological: Alert, Cranial nerves II-XII grossly intact, Normal Strength, Normal Sensation, Normal DTR, Confused, - - Patient answered age incorrectly and month. He had difficulty with heel to sosa on left only. NIH is 3.. Negative for: Oriented x3 Diagnostic/Tx/Re-eval 06/24/18 11:29 Brain/Head without Contrast [CT] Stat Laboratory Results 06/24/18 06/24/18 06/24/18 11:30 11:30 11:30 WBC 11.6 H RBC 4.54 L Hgb 11.4 L Hct 38.3 L MCV 84.4 MCH 25.1 L MCHC 29.8 L RDW 22.0 H RDW Differential 67.4 H Plt Count 141 L MPV 10.2 Immature Gran % (Auto) 0.200 Neut % (Auto) 84.5 H Lymph % (Auto) 8.6 L Morton % (Auto) 6.1 Eos % (Auto) 0.4 Baso % (Auto) 0.2 Absolute Neuts (auto) 9.8 H Absolute Lymphs (auto) 1.00 Total Counted Not Reportable Differential Comment COMMENT PT 12.8 INR 1.0 APTT 26.4 Sodium 141 Potassium 4.6 Chloride 107 Carbon Dioxide 29.0 Anion Gap 5 BUN 22 H Creatinine 1.01 Estim Creat Clear Calc 61.23 Est GFR (MDRD) Af Amer 92 Est GFR (MDRD) Non-Af 76 BUN/Creatinine Ratio 21.8 H Glucose 109 H Calcium 8.6 Troponin I < 0.015 CT of the head reviewed by me as negative for any intracranial process i.e. bleed or acute stroke. Awaiting formal read. - Rhythm Strip Rhythm Strip: Atrial paced on the monitor Rate: 70 Ectopy: None - EKG Initial EKG Interpretation: - - Atrial paced rhythm with left axis and findings consistent of right bundle branch block. PA interval is normal. QRS duration is prolonged. [place] is to the left. - Medical Decision Making Patient presents with symptoms of right hemispheric stroke. Stroke order set was initiated. Since patient does have history of atrial fibrillation and is on no anticoagulant embolic phenomenon is in the differential. Because he complains of headache need to rule out intracranial bleed. Will contact hospitalist for observation status PCU for further testing. He is not a candidate for MRI from the emergency department. Will need to initiate MRI pacemaker protocol. ED Disposition - Plan for ED Patient: Disposition: Acute Care Hospital [facility] Diagnosis: Arterial ischemic stroke, Acute confusional state of cerebrovascular origin Referrals: Stephanie Fuchs MD [Primary Care Provider] -
--- NOTE | 2018-06-24 15:33 | NURSING ---
resumed care of patient at 1530 from [facility]
--- NOTE | 2018-06-24 15:47 | CASEMGMT ---
RN CM Assessment Introduced role of RN CM to patient and at bedside. Patient is alert, oriented and able to participate in RN CM Assessment. Care providers, pharmacy, and demographics verified. Presentation: Admitted for CVA vs TIA. CC: Left side weakness and HANKINS. Admitted 04/22-04/23/18 for weakness and frequent falls, Acute Hypoxia s/t Chronic COPD. Dc'd to TCU, Dc'd from TCU on 05/14/18. PCP: Dr Stephanie Fuchs Specialists: Cardio- dr Lindsey, Pulm- Dr Parikh, GI- Dr Beatty, Pain- Dr Acosta Preferred Pharmacy: [facility] Insurance: Medicare A&B, [employer] Prescription Benefit: Yes LNOK: Hellen Parker Living Arrangements: Retired, lives with in a SS Home with 2 steps to enter, ambulates with walker, cane. Independent with ADL's. Transportation: does the driving and will drive on DC. DME: Walker, cane, built in shower chair, high toilet, B[employer]- [employer]. HHC: Current- [facility] for PT and RN-check. SNF: TCU- dc'd 05/14/18 DC PLAN: Home with reinstatement of PT, RN. No other needs anticipated at this time. Faheem Andrews RNCM
[2018-06-24] MEDS: 0.9% Normal Saline 1,000 ML 100 ML IV (16:05)
--- NOTE | 2018-06-24 16:22 | HP.PCM_ITS ---
Problem List (1) Degenerative joint disease involving multiple joints Status: Chronic (2) Paroxysmal atrial fibrillation Status: Chronic (3) BPH (benign prostatic hyperplasia) Status: Chronic (4) Depression Status: Chronic (5) Peripheral arterial occlusive disease Status: Chronic (6) Alzheimer's disease Status: Chronic (7) Neuropathic pain Status: Chronic (8) Fall Status: Acute (9) Debility Status: Chronic (10) Anxiety Status: Chronic (11) DDD (degenerative disc disease), cervical Status: Chronic (12) Arterial ischemic stroke Status: Acute (13) CHF (congestive heart failure) Status: Chronic Qualifiers: Comment: diastolic History of Present Illness Date of Admission: 06/24/18 Chief Complaint: Left sided weakness The patient is a 77 year old M with a PMH as below who presents from home after getting out of the shower this morning and having left-sided weakness. The weakness in his left upper extremity left lower extremity last for about 15-20 minutes, and by the time he had arrived to the ER his strength had completely returned in his left upper and lower extremity. In the ER he was found to be confused which is a baseline for him given his dementia, however he did not know how old he was and he answered the month and correctly. Also he had difficulty with heel to sosa per report. CT of the head was unremarkable and unfortunately he has a pacemaker and therefore is unable to get an MRI. He states that he has a history of A. fib and had had been falling a lot so in April of this year they discontinued him off of his aspirin and his Xarelto. Also when he came to the ER he was having a global headache which has improved significantly. 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) Paroxysmal atrial fibrillation (Chronic) BPH (benign prostatic hyperplasia) (Chronic) Depression (Chronic) Peripheral arterial occlusive disease (Chronic) Alzheimer's disease (Chronic) Neuropathic pain (Chronic) Debility (Chronic) 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) Anxiety (Chronic) Neuropathy (Chronic) Chronic kidney disease (Chronic) Chronic diastolic heart failure (Chronic) COPD (chronic obstructive pulmonary disease) (Chronic) DDD (degenerative disc disease), cervical (Chronic) Spondylosis without myelopathy or radiculopathy, cervical region (Chronic) CHF (congestive heart failure) (Chronic) diastolic Pulmonary hypertension (Chronic) pacemaker implantation (Chronic) generator change Tobacco abuse (Chronic) AAA (abdominal aortic aneurysm) (Chronic) PVD (peripheral vascular disease) (Chronic) Long-term use of high-risk medication (Chronic) Stage 2 moderate COPD by GOLD classification (Chronic) Acute respiratory failure with hypoxia (Chronic) Suspected chronic. Acute hypoxia on admission without respiratory failure. ARLENE (obstructive sleep apnea) (Chronic) Central sleep apnea (Chronic) S/P PTCA (percutaneous transluminal coronary angioplasty) (Chronic) Cardiomyopathy (Chronic) SSS (sick sinus syndrome) (Chronic) Autonomic dysfunction (Chronic) HLD (hyperlipidemia) (Chronic) PAD (peripheral artery disease) (Chronic) Coronary artery disease (Chronic) S/P LAD and LCx stenting BPH (benign prostatic hypertrophy) with urinary obstruction (Chronic) Depressive disorder (Chronic) HTN (hypertension) (Chronic) Atrial fibrillation (Chronic) GERD (gastroesophageal reflux disease) (Chronic) History of orchiectomy, unilateral (Chronic) Nephrolithiasis (Chronic) Personality disorder (Chronic) Medical History: Medical History (Last Updated 03/21/18 @ 18:31 by Modesto Mclaughlin DO) CHF (congestive heart failure) (Chronic) I50.9 diastolic Pulmonary hypertension (Chronic) I27.20 Tobacco abuse (Chronic) Z72.0 AAA (abdominal aortic aneurysm) (Chronic) I71.4 PVD (peripheral vascular disease) (Chronic) I73.9 Long-term use of high-risk medication (Chronic) Z79.899 Stage 2 moderate COPD by GOLD classification (Chronic) J44.9 Acute respiratory failure with hypoxia (Chronic) J96.01 Suspected chronic. Acute hypoxia on admission without respiratory failure. ARLENE (obstructive sleep apnea) (Chronic) G47.33 Central sleep apnea (Chronic) G47.31 Cardiomyopathy (Chronic) I42.9 SSS (sick sinus syndrome) (Chronic) I49.5 Autonomic dysfunction (Chronic) G90.9 HLD (hyperlipidemia) (Chronic) E78.5 PAD (peripheral artery disease) (Chronic) I73.9 Coronary artery disease (Chronic) I25.10 S/P LAD and LCx stenting BPH (benign prostatic hypertrophy) with urinary obstruction (Chronic) N40.1, N13.8 Depressive disorder (Chronic) F32.9 HTN (hypertension) (Chronic) I10 Atrial fibrillation (Chronic) I48.91 GERD (gastroesophageal reflux disease) (Chronic) K21.9 Nephrolithiasis (Chronic) Personality disorder (Chronic) F60.9 Allergies Penicillins Allergy (Severe, Verified 06/24/18 11:18) Anaphylaxis adhesive Allergy (Verified 06/24/18 11:18) Rash Sulfa (Sulfonamide Antibiotics) Allergy (Verified 06/24/18 11:18) Rash lactose Adverse Reaction (Unknown, Verified 06/24/18 11:18) GI UPSET diazepam [From Valium] Adverse Reaction (Verified 06/24/18 11:18) hyper opposite effect desired HYPER OPPOSITE EFFECT DESIRED niacin [From Niaspan Extended-Release] Adverse Reaction (Verified 06/24/18 11:18) low bp LOW BP simvastatin Adverse Reaction (Verified 06/24/18 11:18) Pain in joints Home Medications: Ambulatory Orders Medication Instructions Recorded Cyanocobalamin [Vitamin B12] 1 tab PO DAILY 06/18/17 Melatonin 10 mg PO QHS 06/18/17 Omeprazole 20 mg PO DAILY 06/18/17 Vit A/Vit C/Vit E/Zinc/Copper 1 cap PO BID 06/18/17 [Preservision Areds Softgel] Duloxetine HCl 60 mg PO BID 03/16/18 Donepezil HCl [Aricept] 10 mg PO QHS 03/22/18 Pregabalin [Lyrica] 300 mg PO QHS 03/22/18 Tamsulosin HCl [Flomax] 0.4 mg PO DAILY@1730 03/22/18 Cholecalciferol (VIT D3) [Vitamin 1,000 unit PO 0800 04/22/18 D3] Oxycodone [Oxyir] 2.5 mg PO QHS 04/22/18 Mineral Oil/Petrolatum,White 1 applic TOPICAL 0600,2200 PRN 04/23/18 [Eucerin] Acetaminophen [Tylenol Tablet] 650 mg PO Q8H PRN 06/17/18 Potassium Chloride [K-Dur] 20 meq PO BID 06/17/18 Rosuvastatin Calcium [Crestor] 5 mg PO QHS 06/17/18 Finasteride [Proscar] 5 mg PO 0800 06/24/18 Prednisone 5 mg PO 0800 06/24/18 Surgical History: Surgical History (Last Reviewed 04/22/18 @ 17:26 by BERENICE Wheatley) S/P TURP (status post transurethral resection of prostate) (Resolved) Z90.79 pacemaker implantation (Chronic) generator change History of inguinal hernia repair (Resolved) Z98.890, Z87.19 History of hemorrhoidectomy (Resolved) Z98.890 History of prostatectomy (Resolved) Z98.890, Z90.79 right ochiectomy (Resolved) History of appendectomy (Resolved) Z98.890, Z90.49 S/P PTCA (percutaneous transluminal coronary angioplasty) (Chronic) Z98.61 History of orchiectomy, unilateral (Chronic) Z90.79 Surgical History: angioplasty, appendectomy, cholecystectomy, herniorrhaphy, pacemaker implantation, TURP, - - Prostatectomy. Lives: Spouse/ Significant Other Smoking Status: Current every day smoker Tobacco Use: Cigarettes Alcohol: None - *Family History Paternal Family History: Family History (Last Reviewed 04/22/18 @ 17:26 by BERENICE Wheatley) Father CAD (coronary artery disease) Mother Breast cancer Arthritis CAD (coronary artery disease) Hypertension Sister CVA (cerebral vascular accident) Diabetes Hypertension Son CAD (coronary artery disease) Hypertension History Items: Heart Disease, Renal Disease Sibling Family History: Family History (Last Reviewed 04/22/18 @ 17:26 by BERENICE Wheatley) Father CAD (coronary artery disease) Mother Breast cancer Arthritis CAD (coronary artery disease) Hypertension Sister CVA (cerebral vascular accident) Diabetes Hypertension Son CAD (coronary artery disease) Hypertension History Items: Diabetes, Heart Disease Offspring Family History: Family History (Last Reviewed 04/22/18 @ 17:26 by BERENICE Wheatley) Father CAD (coronary artery disease) Mother Breast cancer Arthritis CAD (coronary artery disease) Hypertension Sister CVA (cerebral vascular accident) Diabetes Hypertension Son CAD (coronary artery disease) Hypertension History Items: Heart Disease Maternal Family History: Family History (Last Reviewed 04/22/18 @ 17:26 by BERENICE Wheatley) Father CAD (coronary artery disease) Mother Breast cancer Arthritis CAD (coronary artery disease) Hypertension Sister CVA (cerebral vascular accident) Diabetes Hypertension Son CAD (coronary artery disease) Hypertension History Items: Cancer, Heart Disease Review of Systems Constitutional: Denies: Chills, Fever, Weight Change HEENT: Denies: Head Aches, Sinus Congestion, Sinus Drainage Cardiovascular: Denies: Chest Pain, Palpitations Respiratory: Denies: Cough, Shortness of breath at rest, Sputum production Gastrointestinal: Denies: Abdominal Pain, Nausea, Vomiting Genitourinary: Denies: Dysuria Musculoskeletal: Denies: Joint Pain, Joint Tenderness Skin: Denies: Rash, Wounds Neurological: Reports: Focal weakness - On the left. Denies: Numbness, Tingling Psychiatric: Denies: Anxiety, Depression, Homicidal Ideations, Suicidal Ideations Hematologic/ Lymphatic: Denies: Easy Bruising, Easy Bleeding VTE Information - Inpt Only VTE Present on Admission: No Patient Problems: Active and Suspected Problems (Last Updated 03/21/18 @ 18:31 by Modesto Mclaughlin DO) Arterial ischemic stroke (Acute) Acute confusional state of cerebrovascular origin (Acute) - Physical Exam General: Alert, Cooperative, No apparent distress, - - Oriented x2 to person and place does not know the year HEENT: Atraumatic, PERRLA, EOMI, Normocephalic Oral: Moist Mucosa Neck: Supple, No JVD, Trachea Midline Lungs: Clear to auscultation, Normal air movement, No rhonchi, No wheeze, No rales Cardiovascular: Regular rate, Regular Rhythm, Normal S1, Normal S2, No murmurs Abdomen: Soft, Non Tender, Non-Distended, No Hepato-splenomegaly, Passing Flatus Extremities: No edema, Capillary Refill Less than 3 Seconds Skin: No rashes, No breakdown Neurological: Cranial nerves II-XII grossly intact, Deep Tendon Reflexes 2+/4 and Symmetrical, Neuro grossly intact, Motor Exam 5/5 strength throughout, Sensory exam intact to light touch and pain Psych/Mental Status: Normal Affect, Appropriate Vital Signs Temp Pulse Resp BP Pulse Ox 97.8 F 83 18 156/94 H 93 06/24/18 16:00 06/24/18 16:00 06/24/18 16:00 06/24/18 16:00 06/24/18 16:00 Oxygen Delivery Method Room Air Weight: 154 lb 12.232 oz Body Mass Index (BMI) 22.1 Finger Stick Blood Glucose 118 Laboratory Tests Past 24 Hrs 06/24/18 06/24/18 06/24/18 11:30 11:30 11:30 WBC 11.6 H RBC 4.54 L Hgb 11.4 L Hct 38.3 L MCV 84.4 MCH 25.1 L MCHC 29.8 L RDW 22.0 H RDW Differential 67.4 H Plt Count 141 L MPV 10.2 Immature Gran % (Auto) 0.200 Neut % (Auto) 84.5 H Lymph % (Auto) 8.6 L [place] % (Auto) 6.1 Eos % (Auto) 0.4 Baso % (Auto) 0.2 Absolute Neuts (auto) 9.8 H Absolute Lymphs (auto) 1.00 Total Counted Not Reportable Differential Comment COMMENT PT 12.8 INR 1.0 APTT 26.4 Sodium 141 Potassium 4.6 Chloride 107 Carbon Dioxide 29.0 Anion Gap 5 BUN 22 H Creatinine 1.01 Estim Creat Clear Calc 61.23 Est GFR (MDRD) Af Amer 92 Est GFR (MDRD) Non-Af 76 BUN/Creatinine Ratio 21.8 H Glucose 109 H Calcium 8.6 Troponin I < 0.015 Assessment/Plan All Active Problems (Last Reviewed 04/22/18 @ 17:26 by Consuelo Clayton NP-C) Fall (Acute) Stool guaiac positive (Acute) Arterial ischemic stroke (Acute) Acute confusional state of cerebrovascular origin (Acute) S/P TURP (status post transurethral resection of prostate) (Resolved) History of inguinal hernia repair (Resolved) History of hemorrhoidectomy (Resolved) History of prostatectomy (Resolved) right ochiectomy (Resolved) History of appendectomy (Resolved) 1. Right sided stroke versus TIA -He had acute left-sided upper and lower extremity weakness which has resolved -He is confused at baseline with his dementia -Unable to obtain MRI secondary to pacemaker -We will discuss options in terms of reinstituting either aspirin or Xarelto therapy, while inpatient and not ambulatory will restart aspirin -PT/OT for evaluation as well as speech prior to initiating a diet -NIH of 1 for his confusion though this is likely baseline -Repeat NIH while admitted, can consider CTA of the head and neck 2. A-fib/Sick sinus syndrome/PAD/HTN/HLD -He is currently off of Xarelto and aspirin secondary to falls - He continues to be in sinus rhythm and has a h/o pacemaker placement -Continue with his Crestor 3. GERD - stable - c/w PPI 4. Dementia/Depression - stable, struggling with the pain, currently on Lyrica and oxycodone - c/w aricept and cymbalta 5. Urinary retention - had multiple straight caths and had to have a rankin placed on his previous admission -We will continue with finasteride and Flomax DVT: SCDs Code Visit Inpatient E&M: [id number] Init Hosp L3
[2018-06-24] MEDS: Tamsulosin HCl 0.4 MG Capsule PO (17:48)
[2018-06-24] MEDS: Atorvastatin Calcium 10 MG Tablet PO (21:29)
[2018-06-24] MEDS: Donepezil HCl 10 MG Tablet PO (21:29)
[2018-06-24] MEDS: MELATONIN 10 MG TABLET PO (21:29)
[2018-06-24] MEDS: Multivitamin (Healthy Eyes) Capsule 1 CAP PO (21:29)
[2018-06-24] MEDS: DULoxetine Hcl 60 MG Capsule PO (21:29)
[2018-06-24] MEDS: Pregabalin 75 MG Capsule 300 MG PO (21:32)
[2018-06-24] MEDS: oxyCODONE 5 MG Tablet 2.5 MG PO (21:32)
[2018-06-25] VITALS (7 sets, daily range): BP systolic 114–147; BP diastolic 67–72; PULSE 70–106; RESP 14–15; TEMP 36.6–36.9; O2SAT 93–94
[2018-06-25 07:01] LABS: Cholesterol 146 mg/dL (200); High Density Lipoprotein 68 mg/dL; Triglycerides 133 mg/dL; Very Low Density Lipoprotein 27 mg/dL (5-40)
[2018-06-25] MEDS: Pantoprazole Sodium 20 MG Tablet PO (09:10)
[2018-06-25] MEDS: Multivitamin (Healthy Eyes) Capsule 1 CAP PO (09:10)
[2018-06-25] MEDS: Finasteride 5 MG Tablet PO (09:10)
[2018-06-25] MEDS: Cyanocobalamin 500 MCG Tablet PO (09:11)
[2018-06-25] MEDS: predniSONE 5 MG Tablet PO (09:11)
[2018-06-25] MEDS: Enoxaparin 40 MG/0.4 ML Syringe SC (09:11)
[2018-06-25] MEDS: Aspirin 81 MG TAB.CHEW PO (09:11)
[2018-06-25] MEDS: DULoxetine Hcl 60 MG Capsule PO (09:11)
--- NOTE | 2018-06-25 10:05 | CASEMGMT ---
Addendum entered by Thais Wade 06/25/18 10:10: MARY called the main office for [facility]([phone]), all discharge information can be faxed to [phone]. KAI Lovelace, SCRIPT GIRL Original Note: Pt has home health through [facility]. MARY called the office in [place]([phone]), message left to either call this SW today or call SW on Wednesday w/fax number so we can fax over discharge instructions and order to resume the home health care. KAI Lovelace, SCRIPT GIRL
--- NOTE | 2018-06-25 10:07 | CT_ITS ---
STUDY: CTA OF THE BRAIN REASON FOR EXAM: Male, 77 years old. CVA RADIATION DOSAGE (If Supplied By Facility): CTDIvol = ( 29.22 ) mGy, DLP = ( 1437.78 ) mGycm TECHNIQUE: Noncontrast head CT initially performed. CT angiography was performed with a multi-detector CT scanner. Data acquisition was obtained from the skull base through the vertex following intravenous administration of Isovue 370 100ml IV. MIP images were reconstructed from the axial data set. Post-processing of the angiographic images was performed, with multiplanar reformation and 3D reconstruction. Individualized dose optimization techniques were used for this CT. COMPARISON: Report from 05/18/2012 FINDINGS: Normal bilateral petrous carotid arteries. There is calcified plaque formation of the right cavernous carotid artery, without a cross-sectional luminal stenosis. There is calcified plaque formation of the left cavernous carotid artery, without a cross-sectional luminal stenosis. There is non-visualization of the right A1 segment of the anterior cerebral arteries consistent with either aplastic development or an occlusion. Normal left A1 segments of the anterior cerebral artery. Normal intact anterior communicating artery (ACOM). Normal bilateral A2 segments of the anterior cerebral arteries. Normal right M1 and M2 segments of the middle cerebral arteries, with a normal M1 bifurcation. Normal left M1 and M2 segments of the middle cerebral arteries, with a normal M1 bifurcation. There is non-visualization of the right posterior communicating artery (PCOM). There is non-visualization of the left posterior communicating artery (PCOM). There is a small atretic left vertebral artery with a dominant right vertebral artery. Normal basilar artery with a normal basilar bifurcation. The visualized bilateral superior cerebellar (SCA) arteries are normal. Normal bilateral P1, P2 and visualized P3 segments of the posterior cerebral arteries. There is no demonstrated aneurysm of the [place]. The ventricular system is normal in size and shape for age. No masses, mass effects or shift of midline structures. Scattered areas of diminished density in the periventricular and subcortical white matter are nonspecific but most compatible with chronic small vessel ischemic disease. No intracranial hemorrhage or obvious infarction. The calvarium and visualized orbits are unremarkable. Visualized paranasal sinuses are unremarkable except for mild, chronic maxillary sinusitis. CT/CTA Head W/WO Contrast IMPRESSION: 1. No large vessel thrombus/occlusion. No intracranial aneurysm detected. 2. Nonvisualization of the right A1 segment is stable, possibly congenitally absent. 3. No intracranial hemorrhage or mass effect. 4. Age-appropriate central parenchymal volume loss. White matter changes that are nonspecific but most commonly associated with chronic small vessel ischemic disease. Electronically Signed: Trace Coffman MD at 15:07 EST , Service support ,
--- NOTE | 2018-06-25 10:07 | CT_ITS ---
STUDY: CTA NECK WITH CONTRAST REASON FOR EXAM: Male, 77 years old. CVA RADIATION DOSAGE (If Supplied By Facility): CTDIvol = ( ) mGy, DLP = ( ) mGycm TECHNIQUE: CT angiography with multi-detector data acquisition was performed from the aortic arch to the skull base following intravenous administration of 100 mL Isovue-370. MIP images were reconstructed from the axial data set. Post-processing of the angiographic images was performed, with multiplanar reformation and 3D reconstruction. Degree of stenosis (when present) measured utilizing NASCET criteria. Individualized dose optimization techniques were used for this CT. COMPARISON: None. FINDINGS: AORTIC ARCH: Atherosclerosis of the aortic arch extending into the origins of the brachiocephalic arteries but no hemodynamically significant stenosis. RIGHT CAROTID ARTERIES: There is atherosclerotic tortuous elongation of the right common carotid artery. There is mild atherosclerotic plaque formation with minimal narrowing of the right carotid bulb. Approximately 2.2 cm beyond the carotid bifurcation, there is focal noncalcified plaque narrowing the ICA lumen is severely measuring approximately 60%. There is atherosclerotic tortuous elongation of the cervical portion of the right internal carotid artery. Normal origin of the right external carotid artery (ECA). LEFT CAROTID ARTERIES: There is atherosclerotic tortuous elongation of the left common carotid artery. There is mild atherosclerotic plaque formation with minimal narrowing of the left carotid bulb. There is atherosclerotic plaque at the origin the left ICA with linear thin dissection identified on axial image 112 extending along the anterior wall of the proximal ICA but does not appear to be flow limiting. There is only mild narrowing of the proximal ICA measuring approximately 40%. There is atherosclerotic tortuous elongation of the cervical portion of the left internal carotid artery. Normal origin of the left external carotid artery (ECA). VERTEBRAL ARTERIES: There is enhancement within the bilateral vertebral arteries with a small left vertebral artery, and a dominant right vertebral artery. Degenerative changes throughout the cervical spine demonstrated. CT/CTA Neck W/WO Contrast IMPRESSION: 1. 60% stenosis of the proximal right ICA. Prior CTA neck not available for direct comparison. 2. 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 No hemodynamically significant stenosis of the left carotid system Electronically Signed: Trace Coffman MD at 15:13 EST , Service support ,
--- NOTE | 2018-06-25 10:12 | CASEMGMT ---
LW/POA in [facility], printed and they will be placed in paper chart. Forms completed in 2008, son Hunter Parker III listed as POA. KAI Lovelace, RENTAL MANAGEMENT TRAINEE
--- NOTE | 2018-06-25 10:46 | DCINST_ITS ---
- Discharge Diagnoses Current Active Problems: Current Active and Chronic Problems (Last Updated 03/21/18 @ 18:31 by Modesto Mclaughlin DO) Arterial ischemic stroke (Acute) Acute confusional state of cerebrovascular origin (Acute) You will use the following diet at home:: Cardiac Your food should be the consistency of: Regular Your liquids should be the consistency of: Regular/Thin Discharge Activity: Return to Normal Activity, No Restrictions Call your doctor if you observe: Fever of 101 or Higher, Shortness of breath, Dizziness, Fainting spells, Swelling in the ankles, Chest pain, Increased palpitations (irregular heartbeat) Allergies/Adverse Reactions: Allergies Penicillins Allergy (Severe, Verified 06/24/18 11:18) Anaphylaxis adhesive Allergy (Verified 06/24/18 11:18) Rash Sulfa (Sulfonamide Antibiotics) Allergy (Verified 06/24/18:18) Rash lactose Adverse Reaction (Unknown, Verified 06/24/18 11:18) GI UPSET diazepam [From Valium] Adverse Reaction (Verified 06/24/18 11:18) hyper opposite effect desired HYPER OPPOSITE EFFECT DESIRED niacin [From Niaspan Extended-Release] Adverse Reaction (Verified 06/24/18 11:18) low bp LOW BP simvastatin Adverse Reaction (Verified 06/24/18 11:18) Pain in joints Medications to take at Discharge Cyanocobalamin [Vitamin B12] 1 tab PO DAILY 06/18/17 Melatonin 10 mg PO QHS 06/18/17 Omeprazole 20 mg PO DAILY 06/18/17 Vit A/Vit C/Vit E/Zinc/Copper [Preservision Areds Softgel] 1 cap PO BID 06/18/17 Duloxetine HCl 60 mg PO BID 03/16/18 Donepezil HCl [Aricept] 10 mg PO QHS 03/22/18 Pregabalin [Lyrica] 300 mg PO QHS 03/22/18 Tamsulosin HCl [Flomax] 0.4 mg PO DAILY@1730 03/22/18 Cholecalciferol (VIT D3) [Vitamin D3] 1,000 unit PO 0800 04/22/18 Oxycodone [Oxyir] 2.5 mg PO QHS 04/22/18 Mineral Oil/Petrolatum,White [Eucerin] 1 applic TOPICAL 0600,2200 PRN 04/23/18 Acetaminophen [Tylenol Tablet] 650 mg PO Q8H PRN 06/17/18 Potassium Chloride [K-Dur] 20 meq PO BID 06/17/18 Rosuvastatin Calcium [Crestor] 5 mg PO QHS 06/17/18 Finasteride [Proscar] 5 mg PO 0800 06/24/18 Prednisone 5 mg PO 0800 06/24/18 Apixaban [Eliquis] 5 mg PO BID 60 Days tab 06/25/18 The following prescriptions were given: Apixaban [Eliquis] 5 mg PO BID 60 Days tab Primary Care Physician: Stephanie Fuchs MD [Primary Care Provider] - Please follow up with your Primary Care Physician in: 3-5 days Test Results: Test results from this visit will be discussed in further detail at your follow- up appointment, if applicable.
--- NOTE | 2018-06-25 11:38 | CASEMGMT ---
Pt is discharged today, SW faxed order and discharge instructions to [facility], called and let the agency know pt is going home today via message. No further needs. KAI Lovelace, JUTE BAG CLIPPER
--- NOTE | 2018-06-25 12:13 | DS.PCM_ITS ---
Discharge Date and Diagnosis - Problem List Patient Problems: Active and Suspected Problems (Last Updated 03/21/18 @ 18:31 by Modesto Mclaughlin DO) Arterial ischemic stroke (Acute) Acute confusional state of cerebrovascular origin (Acute) Date of Admission: 06/24/18 Date of Discharge: 06/25/18 - Primary Discharge Diagnosis Active and Suspected Problems (Last Updated 03/21/18 @ 18:31 by Modesto Mclaughlin DO) Arterial ischemic stroke (Acute) Acute confusional state of cerebrovascular origin (Acute) - Secondary Discharge Diagnosis Chronic Problems (Last Updated 03/21/18 @ 18:31 by Modesto Mclaughlin DO) Degenerative joint disease involving multiple joints (Chronic) Paroxysmal atrial fibrillation (Chronic) BPH (benign prostatic hyperplasia) (Chronic) Depression (Chronic) Peripheral arterial occlusive disease (Chronic) Alzheimer's disease (Chronic) Neuropathic pain (Chronic) Debility (Chronic) 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) Anxiety (Chronic) Neuropathy (Chronic) Chronic kidney disease (Chronic) Chronic diastolic heart failure (Chronic) COPD (chronic obstructive pulmonary disease) (Chronic) DDD (degenerative disc disease), cervical (Chronic) Spondylosis without myelopathy or radiculopathy, cervical region (Chronic) CHF (congestive heart failure) (Chronic) diastolic Pulmonary hypertension (Chronic) pacemaker implantation (Chronic) generator change Tobacco abuse (Chronic) AAA (abdominal aortic aneurysm) (Chronic) PVD (peripheral vascular disease) (Chronic) Long-term use of high-risk medication (Chronic) Stage 2 moderate COPD by GOLD classification (Chronic) Acute respiratory failure with hypoxia (Chronic) Suspected chronic. Acute hypoxia on admission without respiratory failure. ARLENE (obstructive sleep apnea) (Chronic) Central sleep apnea (Chronic) S/P PTCA (percutaneous transluminal coronary angioplasty) (Chronic) Cardiomyopathy (Chronic) SSS (sick sinus syndrome) (Chronic) Autonomic dysfunction (Chronic) HLD (hyperlipidemia) (Chronic) PAD (peripheral artery disease) (Chronic) Coronary artery disease (Chronic) S/P LAD and LCx stenting BPH (benign prostatic hypertrophy) with urinary obstruction (Chronic) Depressive disorder (Chronic) HTN (hypertension) (Chronic) Atrial fibrillation (Chronic) GERD (gastroesophageal reflux disease) (Chronic) History of orchiectomy, unilateral (Chronic) Nephrolithiasis (Chronic) Personality disorder (Chronic) Hospital Course and Treatment Imaging Results: 06/25/18 10:07 CTA Head W/WO Contrast [CT] Routine CTA Neck W/WO Contrast [CT] Routine Consults: None Operations: None Procedures: None Summary of Care Provided: HPI: The patient is a 77 year old M with a PMH as below who presents from home after getting out of the shower this morning and having left-sided weakness. The weakness in his left upper extremity left lower extremity last for about 15- 20 minutes, and by the time he had arrived to the ER his strength had completely returned in his left upper and lower extremity. In the ER he was found to be c onfused which is a baseline for him given his dementia, however he did not know how old he was and he answered the month and correctly. Also he had difficulty with heel to sosa per report. CT of the head was unremarkable and unfortunately he has a pacemaker and therefore is unable to get an MRI. He states that he has a history of A. fib and had had been falling a lot so in April of this year they discontinued him off of his aspirin and his Xarelto. Also when he came to the ER he was having a global headache which has improved significantly. Hospital Course: 1. Right-sided CVA versus [id number]-old male with a history of A. fib, coronary artery disease status post stent who presented after a [id number] episode of left-sided weakness in his left upper and lower extremity. By the time he arrived to the hospital his weakness had resolved though he does have some dementia and was unable to say how old he was or what year it was. Today he states that he is not weak at all and is back to his baseline. Unfortunately an MRI cannot be obtained because of his pacemaker and a CTA head and neck will be obtained today, however he does not believe that he would pursue any aggressive intervention regardless of what is found on the CTA. Given his history of A. fib and the fact that he is likely presenting with a stroke, will reinstitute anticoagulation with Eliquis only. We will hold off on the aspirin given his previous fall risk and elevated risk of bleeding. Also an echo was not repeated since he had had one in January. 2. His other medical diagnoses were evaluated and his home medications were continued where appropriate Patient Problems: Active and Suspected Problems (Last Updated 03/21/18 @ 18:31 by Modesto Mclaughlin DO) Arterial ischemic stroke (Acute) Acute confusional state of cerebrovascular origin (Acute) Objective: General: Alert, Cooperative, No apparent distress, - - Oriented x2 to person and place does not know the year HEENT: Atraumatic, PERRLA, EOMI, Normocephalic Oral: Moist Mucosa Neck: Supple, No JVD, Trachea Midline Lungs: Clear to auscultation, Normal air movement, No rhonchi, No wheeze, No rales Cardiovascular: Regular rate, Regular Rhythm, Normal S1, Normal S2, No murmurs Abdomen: Soft, Non Tender, Non-Distended, No Hepato-splenomegaly, Passing Flatus Extremities: No edema, Capillary Refill Less than 3 Seconds Skin: No rashes, No breakdown Neurological: Cranial nerves II-XII grossly intact, Deep Tendon Reflexes 2+/4 and Symmetrical, Neuro grossly intact, Motor Exam 5/5 strength throughout, Sensory exam intact to light touch and pain Psych/Mental Status: Normal Affect, Appropriate - Physical Exam Vital Signs Temp Pulse Resp BP Pulse Ox 98.2 F 73 15 126/67 H 94 06/25/18 09:00 06/25/18 09:00 06/25/18 09:00 06/25/18 09:00 06/25/18 09:00 Oxygen Delivery Method Room Air Weight: 154 lb 12.232 oz Body Mass Index (BMI) 22.1 Finger Stick Blood Glucose 118 Intake and Output for Last 24 Hours 06/23/18 06/24/18 06/25/18 23:59 23:59 23:59 Intake Total 1602 / 1602 188.6 / 188.6 Balance 1602 / 1602 188.6 / 188.6 Laboratory Tests Past 24 Hrs 06/24/18 06/24/18 06/25/18 11:30 11:30 06:20 Total Counted Not Reportable Differential Comment COMMENT Sodium 141 Potassium 4.6 Chloride 107 Carbon Dioxide 29.0 Anion Gap 5 BUN 22 H Creatinine 1.01 Estim Creat Clear Calc 61.23 Est GFR (MDRD) Af Amer 92 Est GFR (MDRD) Non-Af 76 BUN/Creatinine Ratio 21.8 H Glucose 109 H Calcium 8.6 Troponin I < 0.015 Triglycerides 133 Cholesterol 146 LDL Cholesterol 51 VLDL Cholesterol 27 HDL Cholesterol 68 Discharge Activity: Return to Normal Activity, No Restrictions Call your doctor if you observe: Fever of 101 or Higher, Shortness of breath, Dizziness, Fainting spells, Swelling in the ankles, Chest pain, Increased palpitations (irregular heartbeat) Home Medications: Medications to take at Discharge Cyanocobalamin [Vitamin B12] 1 tab PO DAILY 06/18/17 Melatonin 10 mg PO QHS 06/18/17 Omeprazole 20 mg PO DAILY 06/18/17 Vit A/Vit C/Vit E/Zinc/Copper [Preservision Areds Softgel] 1 cap PO BID 06/18/17 Duloxetine HCl 60 mg PO BID 03/16/18 Donepezil HCl [Aricept] 10 mg PO QHS 03/22/18 Pregabalin [Lyrica] 300 mg PO QHS 03/22/18 Tamsulosin HCl [Flomax] 0.4 mg PO DAILY@1730 03/22/18 Cholecalciferol (VIT D3) [Vitamin D3] 1,000 unit PO 0800 04/22/18 Oxycodone [Oxyir] 2.5 mg PO QHS 04/22/18 Mineral Oil/Petrolatum,White [Eucerin] 1 applic TOPICAL 0600,2200 PRN 04/23/18 Acetaminophen [Tylenol Tablet] 650 mg PO Q8H PRN 06/17/18 Potassium Chloride [K-Dur] 20 meq PO BID 06/17/18 Rosuvastatin Calcium [Crestor] 5 mg PO QHS 06/17/18 Finasteride [Proscar] 5 mg PO 0800 06/24/18 Prednisone 5 mg PO 0800 06/24/18 Apixaban [Eliquis] 5 mg PO BID 60 Days tab 06/25/18 Following Prescrptions Were Given to Patient: Apixaban [Eliquis] 5 mg PO BID 60 Days tab Primary Care Physician: Stephanie Fuchs MD [Primary Care Provider] - Please follow up with your Primary Care Physician in: 3-5 days Disposition: Home Minutes spent on discharge:: 35 Patient Condition:: Stable Medical Necessity - Tobacco Use Smoking Status: Current some day smoker Tobacco Use: Cigarettes Meaningful Use Info Meaningful Use Diagnoses (Choose all that apply): None applicable Code Visit Inpatient E&M: 17309 Disch Hosp
--- NOTE | 2018-06-27 14:19 | CASEMGMT ---
JULIUS PATEL DC PHONE CALL DC DATE: 06/25/18 DC Disposition: home LACE/STRATA: 03/22 Intro role of CM to patient's who states that pt is doing well, has follow up appointment with Dr. Fuchs tomorrow. states prescription was changed to Xarelto as the copay was affordable under their insurance benefits. No other questions and no care improvement suggestions were given. stated the nurses were excellent. Frandy WHITFIELDN RN ACM
== END 2018-06-25 16:37 | disposition home or self-care (01) | DRG 65 ==
LOC: ED 12:22 → PCU 13:19
PROVIDERS: Admitting Provider Family Medicine; Emergency Provider Emergency Medicine; Family Provider Internal Medicine; PCP Internal Medicine; Visit Provider Family Medicine
DX: I63.9 Cerebral infarction, unspecified (principal); G81.94 Hemiplegia, unspecified affecting left nondominant side; I13.0 Hypertensive heart and chronic kidney disease with heart failure and stage 1 through stage 4 chronic kidney disease, or unspecified chronic kidney disease; I50.32 Chronic diastolic (congestive) heart failure; R29.703 NIHSS score 3; M15.9 Polyosteoarthritis, unspecified; N40.0 Benign prostatic hyperplasia without lower urinary tract symptoms; J44.9 Chronic obstructive pulmonary disease, unspecified; F17.210 Nicotine dependence, cigarettes, uncomplicated; Z91.81 History of falling; I27.20 Pulmonary hypertension, unspecified; M50.30 Other cervical disc degeneration, unspecified cervical region; Z95.0 Presence of cardiac pacemaker; E78.5 Hyperlipidemia, unspecified; N18.9 Chronic kidney disease, unspecified; G30.9 Alzheimer's disease, unspecified; F02.80 Dementia in other diseases classified elsewhere, unspecified severity, without behavioral disturbance, psychotic disturbance, mood disturbance, and anxiety; G47.33 Obstructive sleep apnea (adult) (pediatric); M47.812 Spondylosis without myelopathy or radiculopathy, cervical region; I48.0 Paroxysmal atrial fibrillation; G62.9 Polyneuropathy, unspecified; F32.9 Major depressive disorder, single episode, unspecified; I73.9 Peripheral vascular disease, unspecified; Z95.5 Presence of coronary angioplasty implant and graft; I25.10 Atherosclerotic heart disease of native coronary artery without angina pectoris
CPT/HCPCS: 36415; 70450; 70496; 70498; 80048; 80061; 84484; 85025; 85610; 85730; 92526; 92610; 93005; 97162; 97166; 97802; 99285; 99406; J7030; Q9967

== ENCOUNTER → 2018-06-28 10:47 | Outpatient (CLI) | payer MEDICARE, OTHER, SELFPAY ==
[2018-06-24 23:53] VITALS: BMI 22.1
--- NOTE | 2018-06-29 09:51 | PFT ---
INTRODUCTION: The patient is a 77-year-old male that presents for pulmonary function studies secondary to a diagnosis of COPD. Respiratory therapy reports good patient effort. Bronchodilators were used during testing. INTERPRETATION: Forced expiration spirometry demonstrates the presence of a mild large airways obstructive ventilatory defect. There was no significant response to aerosolized bronchodilators, based upon strict ATS criteria. Spirograms are of good quality and do not plateau indicating slow emptying of the lungs. Body plethysmography was performed and reveals lung volumes to be within normal limits. Diffusing capacity by single breath CO is within normal limits at 83% of predicted. IMPRESSION: These pulmonary function studies demonstrate the presence of an irreversible mild large airways obstructive ventilatory defect with preserved lung volumes and diffusing capacity.
== END ==
PROVIDERS: Family Provider Internal Medicine; PCP Internal Medicine; Referring Provider Internal Medicine Critical Care Medicine; Visit Provider Internal Medicine Critical Care Medicine
DX: J44.9 Chronic obstructive pulmonary disease, unspecified (principal)
CPT/HCPCS: 94060; 94726; 94729

== ENCOUNTER 2018-07-15 13:27 | Inpatient (IN) | payer MEDICARE, OTHER, SELFPAY ==
[2018-07-05 11:07] VITALS: BMI 22.9
[2018-07-15] VITALS (11 sets, daily range): BP systolic 87–129; BP diastolic 49–71; PULSE 75–115; RESP 16–23; TEMP 37.2–39.2; O2SAT 90–96; BMI 24.2; BMI 23.0; BMI 23.5
--- NOTE | 2018-07-15 14:34 | CT_ITS ---
STUDY: CT ABDOMEN AND PELVIS WITH CONTRAST REASON FOR EXAM: Male, 77 years old. Abdominal pain. Patient has a history of abdominal aortic aneurysm. RADIATION DOSAGE (If Supplied By Facility): CTDIvol = ( 25.12 ) mGy, DLP = ( 836.55 ) mGycm TECHNIQUE: Transaxial images were obtained from the dome of the diaphragm to the symphysis pubis without oral contrast. 100ML IV Isovue 300 was administered. Sagittal and coronal images were reconstructed. 3-D images were reconstructed. Individualized dose optimization techniques were used for this CT. COMPARISON: Comparison is made with prior examination January 22, 2018. FINDINGS: Stable increased markings at the lung bases suggestive of bibasilar scarring. This is slightly worse on the right side. Dual chamber pacemaker. 1 cm cyst seen in the left lobe of the liver. There are surgical clips in the gallbladder fossa consistent with a prior cholecystectomy. Mild degree of dilated intrahepatic biliary ducts and common bile duct most likely secondary to the postcholecystectomy state. Normal spleen. Normal pancreas. Normal bilateral adrenal glands. Stable multiple right renal cysts. There is moderate cortical atrophy of the left kidney, consistent with chronic medical renal disease. Stable appearance of the left renal cyst. Stable focal cortical calcification in the posterior inferior pole calyx of the left kidney. Diffuse left perinephric stranding with thickening of the left pararenal fascia. Mild degree of left hydronephrosis and left hydroureter due to a 4 mm calculus at the left ureterovesical junction. Normal visualized stomach. Normal small intestine. There are multiple colonic diverticula consistent with diverticulosis. The appendix is visualized and appears normal. There is diffuse atherosclerotic calcification of the abdominal aorta. Stable fusiform infrarenal abdominal aortic aneurysm with a transverse dimension of 3 cm. Calcific plaques of the common iliac arteries bilaterally.Normal inferior vena cava. Normal retroperitoneum. Normal urinary bladder. There are prostatic calcifications. Normal abdominal wall. There are diffuse degenerative changes of the visualized lumbar spine. CT/CT ANGIO ABD&PEL W/O&W/DYE IMPRESSION: 4 mm track is at the left ureter vesicle junction causing left-sided hydronephrosis and hydroureter with left perinephric stranding. The remainder of the examination is unchanged. Electronically Signed: Stef Carlton, at 15:18 EDT , Service support ,
--- NOTE | 2018-07-15 14:34 | EKG12_ITS ---
Test Reason : DYSRHYTHMIA Blood Pressure : / mmHG Vent. Rate : 081 BPM Atrial Rate : 081 BPM P-R Int : 148 ms QRS Dur : 130 ms QT Int : 390 ms P-R-T Axes : 023 -89 -17 degrees QTc Int : 453 ms Normal sinus rhythm Left axis deviation Right bundle branch block Septal infarct , age undetermined Possible Lateral infarct , age undetermined Abnormal ECG Confirmed by MARCELL HANEY, MARII ([id number]), state editor MARQUIS QUICK ([id number]) on 07/18/2018 1:44:01 PM Referred By: PEPE Confirmed By:MARII FAITH MD
--- NOTE | 2018-07-15 14:42 | ED.DCSUM_ITS ---
History of Present Illness Chief Complaint: Weakness Informant: Patient, Family Onset: Today Context: - - upon getting up out of bed 4-5 hrs ago Timing: Continuous Quality: weak, shaky/tremulous Location: all over Current Severity: Severe Maximum Severity: Severe Associated Symptoms: low back pain Narrative: Patient states he is having pain around his kidneys area. States he has had multiple kidney stones in the past and feels like he may be having one right now, his pain is bilateral but worse on the left. When asked when this started, he states years ago. When asked when it got worse, he gives me the same answer and laughs. His states that he was up all night with this back pain and had trouble sleeping, and he admits that is usually not the case. He thinks it has been worse since last night before he went to bed. He denies having any abdominal pain at that point but developed that at some point and states he is having some discomfort in his lower abdomen, nonlateralizing. He denies having any discomfort or urinating lately, no nausea, vomiting, diarrhea. Denies any chest pain, shortness of breath, recent cough, palpitations, near-syncope. He does feel weak all over and tired. He denies any numbness or focal weakness in any specific extremity. No headache. No confusion, but he is a poor historian. - Past Medical History (1) Arterial ischemic stroke Status: Chronic (2) AAA (abdominal aortic aneurysm) Status: Chronic (3) Alzheimer's disease Status: Chronic (4) Anxiety Status: Chronic (5) Atrial fibrillation Status: Chronic (6) BPH (benign prostatic hyperplasia) Status: Chronic (7) COPD (chronic obstructive pulmonary disease) Status: Chronic (8) Central sleep apnea Status: Chronic (9) Chronic diastolic heart failure Status: Chronic (10) Coronary artery disease Status: Chronic Comment: S/P LAD and LCx stenting (11) DDD (degenerative disc disease), cervical Status: Chronic (12) Degenerative joint disease involving multiple joints Status: Chronic (13) Depression Status: Chronic (14) GERD (gastroesophageal reflux disease) Status: Chronic (15) HLD (hyperlipidemia) Status: Chronic (16) HTN (hypertension) Status: Chronic (17) Nephrolithiasis Status: Chronic (18) Neuropathy Status: Chronic (19) ARLENE (obstructive sleep apnea) Status: Chronic (20) PAD (peripheral artery disease) Status: Chronic (21) Personality disorder Status: Chronic (22) Pulmonary hypertension Status: Chronic (23) SSS (sick sinus syndrome) Status: Chronic Past Medical History - Allergies and Home Meds Allergies/Adverse Reactions: Allergies Penicillins Allergy (Severe, Verified 07/05/18 11:08) Anaphylaxis adhesive Allergy (Verified 07/05/18 11:08) Rash Sulfa (Sulfonamide Antibiotics) Allergy (Verified 07/05/18 11:08) Rash lactose Adverse Reaction (Unknown, Verified 07/05/18 11:08) GI UPSET diazepam [From Valium] Adverse Reaction (Verified 07/05/18 11:08) hyper opposite effect desired HYPER OPPOSITE EFFECT DESIRED niacin [From Niaspan Extended-Release] Adverse Reaction (Verified 07/05/18 11:08) low bp LOW BP simvastatin Adverse Reaction (Verified 07/05/18 11:08) Pain in joints Primary Care Physician: Apollo Arango MD [STAFF PHYSICIAN] - Surgical History: angioplasty, appendectomy, cholecystectomy, herniorrhaphy, pacemaker implantation, TURP, - - Prostatectomy. orchiectomy. Lives: Spouse/ Significant Other Smoking Status: Current every day smoker - Family History Paternal Family History: Family History (Last Reviewed 07/05/18 @ 11:26 by BERENICE Berman) Father CAD (coronary artery disease) Mother Breast cancer Arthritis CAD (coronary artery disease) Hypertension Sister CVA (cerebral vascular accident) Diabetes Hypertension Son CAD (coronary artery disease) Hypertension Family History: Reports: Heart Disease, Renal Disease Sibling Family History: Family History (Last Reviewed 07/05/18 @ 11:26 by BERENICE Berman) Father CAD (coronary artery disease) Mother Breast cancer Arthritis CAD (coronary artery disease) Hypertension Sister CVA (cerebral vascular accident) Diabetes Hypertension Son CAD (coronary artery disease) Hypertension Family History: Reports: Diabetes, Heart Disease Offspring Family History: Family History (Last Reviewed 07/05/18 @ 11:26 by BERENICE Berman) Father CAD (coronary artery disease) Mother Breast cancer Arthritis CAD (coronary artery disease) Hypertension Sister CVA (cerebral vascular accident) Diabetes Hypertension Son CAD (coronary artery disease) Hypertension Family History: Reports: Heart Disease Maternal Family History: Family History (Last Reviewed 07/05/18 @ 11:26 by Caitlin Hamilton, REGULAT[employer] COMPLIANCE MANAGER-C) Father CAD (coronary artery disease) Mother Breast cancer Arthritis CAD (coronary artery disease) Hypertension Sister CVA (cerebral vascular accident) Diabetes Hypertension Son CAD (coronary artery disease) Hypertension Family History: Reports: Cancer, Heart Disease Review of Systems General: Reports: Chills, Malaise. Denies: Fever, Sweats Eyes: Denies: Visual changes - bilaterally, Diplopia ENT: Denies: Rhinorrhea, Sore throat Cardiovascular: Denies: Chest pain, Palpitations Respiratory: Denies: Dyspnea, Cough, Dyspnea on exertion Gastrointestinal: Reports: Abdominal pain. Denies: Nausea, Vomiting, Diarrhea, Melena, Hematochezia Genitourinary: Denies: Dysuria, Hematuria, Frequency Musculoskeletal: Reports: Back pain. Denies: Swelling, Extremity Pain Skin: Denies: Rash, Wounds Neurological: Denies: Headache, Weakness, Numbness Physical Exam Vital Signs/Narrative: Vital Signs Temp Pulse Resp BP Pulse Ox 07/15/18 13:34 98.9 F 78 16 87/59 L 90 07/15/18 13:32 77 20 H 92/61 96 Inital Vital Signs reviewed: Yes General: Well nourished, Well developed, No Acute Distress Head: Normocephalic, Atraumatic Eyes: Perrl, EOMI ENT: Moist mucous membranes, No rhinorrhea Neck: Supple, Nontender Cardiovascular: Regular rate, Regular rhythm, No murmurs Respiratory: No distress, CTA bilaterally, Chest nontender Abdomen: Soft, Normal bowel sounds, No masses, Tender - LLQ/flank, Guarding - LLQ, - - distended. Negative for: Rebound tenderness, Pulsatile mass Back: Nontender, Normal Inspection Extremities: Nontender, No edema Skin: Normal color, No rash, No Trauma, - - neg guerrero keenan and elvis signs Neurological: Alert, Cranial nerves II-XII grossly intact, Normal Strength, Normal Sensation, Disoriented - time only Psychological: Normal affect, Normal Mood Diagnostic/Tx/Re-eval - Rhythm Strip Rhythm Strip: Sinus Rhythm Rate: 75 Ectopy: None - EKG Initial EKG Interpretation: Sinus Rhythm, No Acute Injury Pattern, RBBB - w/ LPFB, Inverted T-Waves - inf, ant-sept, - - no acute ST seg deviations. Prior: Unchanged - Medical Decision Making Upon seeing the patient, and during the history learning about the fact that he indeed does have a history of an aortic aneurysm that he believes is in his abdomen, which an acute problem with is certainly in the differential diagnosis here, I immediately obtain the ultrasound, alerted CT and nursing about my suspicions for a possible ruptured AAA, and ultrasound in him at the bedside. Because of a significant amount of bowel gas, I was unable to definitively visualize the aorta in longitudinal view to determine its status. He is keenly alert, his blood pressure is in the 80s. At this time he is being bolused with IV fluids, and sent to CT stat. CT shows stable aorta. Patient also has a UVJ stone at 4 mm on the left ureter, causing significant hydronephrosis and hydroureter, which is probably causing his pain and tenderness. No other acute abnormal findings on CT. Chest x-ray shows possible early infiltrate left lower lobe that may be causing the fever t hat he developed and was treated with Tylenol, in addition to the hypotension that he came with. His rigors are probably related. His lactate is 3.9. His blood pressure responded nicely to IV fluids. He is clinically stable, his pain was treated. Discussed with Dr. Rendon, who saw the patient in the ED. Patient is not in septic shock, urinalysis is pending, I do not think he needs to have emergent percutaneous nephrostomy. Covered empirically with Rocephin, based on urine being more likely source of sepsis, since he is not coughing or having any dyspnea. In ED, given hx of anaphylaxis to penicillin, watched closely while Rocephin being given; no reactions. ED Disposition - Plan for ED Patient: Disposition: Acute [facility] Diagnosis: Severe sepsis, Renal colic on left side, Ureterolithiasis, RICHI (acute kidney injury) Referrals: Apollo Arango MD [STAFF PHYSICIAN] -
--- NOTE | 2018-07-15 14:46 | RAD_ITS ---
STUDY: X-RAY CHEST REASON FOR EXAM: Male, 77 years old. Weakness. New onset of tremors. TECHNIQUE: Single AP portable view of the chest. COMPARISON: Comparison is made with prior study dated May 05, 2018. FINDINGS: EKG electrodes are seen. Mild increased linear markings with areas of confluence in the left lower lobe suggestive of left basilar atelectasis and/or early infiltrate. There is blunting of the left costophrenic angle. Normal size heart. Left-sided dual-chamber pacemaker. Normal mediastinum and elis. Normal visualized pulmonary arteries. There is atherosclerotic calcification of the aortic arch with tortuosity. Normal visualized thoracic spine. Normal visualized ribs, clavicles, and shoulders. There is no demonstrated abnormality of the visualized soft tissue structures of the upper abdomen. RAD/Chest 1 View (Portable) IMPRESSION: Increased markings at the left lung base with areas of confluence and blunting of the left cardiac phrenic angle. Early infiltrate and/or atelectasis should be excluded. Electronically Signed: Stef Carlton, at 15:02 EDT , Service support ,
[2018-07-15] MEDS: 0.9% Normal Saline 1,000 ML IV.SOLN. 2000 ML IV (15:00)
[2018-07-15 15:22] LABS: Absolute Lymphocyte Count 0.37 X10^3/ul (0.83-4.51); Absolute Neutrophil Count 12.6 X10^3/uL (2.0-7.7); Basophil# 0.04 X10^3/uL; Basophil% 0.3 % (0-1); Eosinophil# 0.01 X10^3/uL; Eosinophils% 0.1 % (0-5); Hematocrit 38.6 % (40-54); Hemoglobin 11.6 g/dl (13.0-16.5); Lymphocyte # 0.37 X10^3/ul (4.0); Lymphocyte % 2.8 % (19-41); Mean Corp Hgb Conc 30.1 g/gl (32-36); Mean Corpuscular Hgb 25.7 pg (27.0-32.0); Mean Corpuscular Volume 85.4 fL (80-94); Monocyte# 0.46 X10^3/uL; Monocyte% 3.4 % (0-10); Neutrophil # 12.55 X10^3/uL (2.7-7.7); Neutrophil % 93.3 % (47-70); Platelet Count 108 K/mm3 (150-450); RBC Distribution Width CV 21.4 % (11.6-14.6); Red Blood Count 4.52 M/mm3 (4.6-6.2); White Blood Count 13.5 K/mm3 (4.4-11.0)
[2018-07-15 15:28] LABS: International Normalized Ratio 1.7; Prothrombin Time (Protime)PT. 19.9 SECONDS (11.7-14.9)
[2018-07-15 15:29] LABS: Partial Thromboplast Time 40.8 Seconds (24.1-36.2)
[2018-07-15] MEDS: fentaNYL 100 MCG/2 ML Ampul 50 MCG IV (15:31)
[2018-07-15 15:32] LABS: AST(SGOT) 21 U/L (15-37); Alanine Aminotransfer ALT/SGPT 26 U/L (16-61); Albumin, Serum 2.5 g/dL (3.2-5.0); Alkaline Phosphatase 92 U/L (45-117); Anion Gap 5 (5-15); BUN 22 mg/dL (7-18); BUN/Creat Ratio 10.4 RATIO (10-20); Calcium,Total 7.8 mg/dL (8.5-10.1); Chloride 109 mmol/L (98-107); Creatinine, Serum 2.12 mg/dL (0.70-1.30); EST Glomerular Filtration Rate 32 mL/min (>60); Est Glom Filt Rate - Afr Amer 39 mL/min (>60); Estimated Creatinine Clearance 29.17 ml/min; Globulin 2.6 g/dL (2.2-4.2); Glucose 92 mg/dL (74-106); Protein, Total 5.1 g/dL (6.4-8.2); Sodium Level 140 mmol/L (136-145)
[2018-07-15 15:35] LABS: Differential Indicated SCAN CRITERIA MET; POSITIVE COUNT NO; POSITIVE DIFFERENTIAL YES; POSITIVE MORPHOLOGY YES
[2018-07-15 15:41] LABS: Lactic Acid 3.9 mmol/L (0.4-2.0)
--- NOTE | 2018-07-15 15:43 | ED.RN ---
LACTIC 3.[address] FROM [address] LAB. DR CANTU AWARE
[2018-07-15] MEDS: Acetaminophen 500 MG Tablet 1000 MG PO (15:56)
[2018-07-15 15:57] LABS: Platelet Morphology LARGE
[2018-07-15 15:58] LABS: Anisocytosis 1+; Differential Comment SCANNED
[2018-07-15 16:18] LABS: Mucous, Urine 0 SEEN /hpf (<or=2+); Squamous Epithelial Cells - UA 0 SEEN /hpf (0-5)
[2018-07-15] MEDS: Ceftriaxone 1 GM/50 ML BAG IV (16:36)
[2018-07-15 16:45] LABS: Color, Urine Yellow (Yellow); Glucose, Dipstick Normal (Normal); Ketone-Dipstick 5 mg/dl (Negative); Leukocyte Esterase-Dipstick 500 /ul (Negative); Nitrite-Dipstick Positive (Negative); Occult Blood-Urine 250 /ul (Negative); Protein-Dipstick 30 mg/dl (Negative); Specific Gravity, Urine 1.015 (1.002-1.030); Urine Clarity Cloudy (Clear); Urine Urobilinogen 1 mg/dl (Normal)
--- NOTE | 2018-07-15 16:55 | HP.PCM_ITS ---
<Consuelo Clayton - Last Filed: 07/15/18 17:16> Problem List (1) Degenerative joint disease involving multiple joints Status: Chronic (2) Paroxysmal atrial fibrillation Status: Chronic (3) BPH (benign prostatic hyperplasia) Status: Chronic (4) Depression Status: Chronic (5) Peripheral arterial occlusive disease Status: Chronic (6) Alzheimer's disease Status: Chronic (7) Debility Status: Chronic (8) 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 Status: Chronic (9) Anxiety Status: Chronic (10) Neuropathy Status: Chronic (11) Chronic kidney disease Status: Chronic Qualifiers: Chronic kidney disease stage: stage 3 (moderate) Qualified Code(s): N18.3 - Chronic kidney disease, stage 3 (moderate) (12) Chronic diastolic heart failure Status: Chronic (13) COPD (chronic obstructive pulmonary disease) Status: Chronic (14) Stool guaiac positive Status: Resolved (15) DDD (degenerative disc disease), cervical Status: Chronic (16) Spondylosis without myelopathy or radiculopathy, cervical region Status: Chronic (17) Arterial ischemic stroke Status: Chronic (18) Renal colic on left side Status: Acute (19) Ureterolithiasis Status: Acute (20) RICHI (acute kidney injury) Status: Acute (21) CHF (congestive heart failure) Status: Chronic Comment: diastolic (22) Pulmonary hypertension Status: Chronic (23) S/P TURP (status post transurethral resection of prostate) Status: Resolved (24) pacemaker implantation Status: Chronic Comment: generator change (25) History of inguinal hernia repair Status: Resolved (26) History of hemorrhoidectomy Status: Resolved (27) History of prostatectomy Status: Resolved (28) right ochiectomy Status: Resolved (29) History of appendectomy Status: Resolved (30) Tobacco abuse Status: Chronic (31) AAA (abdominal aortic aneurysm) Status: Chronic (32) PVD (peripheral vascular disease) Status: Chronic (33) Long-term use of high-risk medication Status: Chronic (34) Stage 2 moderate COPD by GOLD classification Status: Chronic (35) Acute respiratory failure with hypoxia Status: Resolved Comment: Suspected chronic. Acute hypoxia on admission without respiratory failure. (36) ARLENE (obstructive sleep apnea) Status: Chronic (37) Central sleep apnea Status: Chronic (38) S/P PTCA (percutaneous transluminal coronary angioplasty) Status: Chronic (39) Cardiomyopathy Status: Chronic Qualifiers: Cardiomyopathy type: ischemic Qualified Code(s): I25.5 - Ischemic cardiomyopathy (40) SSS (sick sinus syndrome) Status: Chronic (41) Autonomic dysfunction Status: Chronic (42) HLD (hyperlipidemia) Status: Chronic (43) PAD (peripheral artery disease) Status: Chronic (44) Coronary artery disease Status: Chronic Comment: S/P LAD and LCx stenting (45) BPH (benign prostatic hypertrophy) with urinary obstruction Status: Chronic (46) Depressive disorder Status: Chronic (47) HTN (hypertension) Status: Chronic (48) Atrial fibrillation Status: Chronic (49) GERD (gastroesophageal reflux disease) Status: Chronic (50) History of orchiectomy, unilateral Status: Chronic (51) Nephrolithiasis Status: Chronic (52) Personality disorder Status: Chronic History of Present Illness Date of Admission: 07/15/18 Chief Complaint: Weakness, shaking, back pain. The patient is a 77 year old M who presents with weakness, shaking and lower back pain. He reports this began last evening. He reports he was unable to get out of bed this morning due to weakness and his hands had tremors. He did not check his temperature but felt like he had a fever/chills. Denies nausea, vomiting, diarrhea. Denies cough or URI symptoms. Complains of lower back pain, worse on the left side. And left-sided abdominal pain. He currently follows with Dr. Rendon for BPH. Denies history of kidney stones. He has a past medical history of chronic COPD, atrial fibrillation on anticoagulation with Xarelto, sick sinus syndrome status post pacemaker, BPH, chronic diastolic CHF, obstructive sleep apnea, pulmonary hypertension, dementia, depression/personality disorder, hypertension, CAD, tobacco dependence. Past Medical History Past Medical History (Chronic Problems): Chronic Problems (Last Reviewed 07/15/18 @ 17:11 by Harrison Rendon MD) Degenerative joint disease involving multiple joints (Chronic) Paroxysmal atrial fibrillation (Chronic) BPH (benign prostatic hyperplasia) (Chronic) Depression (Chronic) Peripheral arterial occlusive disease (Chronic) Alzheimer's disease (Chronic) Debility (Chronic) 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) Anxiety (Chronic) Neuropathy (Chronic) Chronic kidney disease (Chronic) Chronic diastolic heart failure (Chronic) COPD (chronic obstructive pulmonary disease) (Chronic) DDD (degenerative disc disease), cervical (Chronic) Spondylosis without myelopathy or radiculopathy, cervical region (Chronic) Arterial ischemic stroke (Chronic) CHF (congestive heart failure) (Chronic) diastolic Pulmonary hypertension (Chronic) pacemaker implantation (Chronic) generator change Tobacco abuse (Chronic) AAA (abdominal aortic aneurysm) (Chronic) PVD (peripheral vascular disease) (Chronic) Long-term use of high-risk medication (Chronic) Stage 2 moderate COPD by GOLD classification (Chronic) ARLENE (obstructive sleep apnea) (Chronic) Central sleep apnea (Chronic) S/P PTCA (percutaneous transluminal coronary angioplasty) (Chronic) Cardiomyopathy (Chronic) SSS (sick sinus syndrome) (Chronic) Autonomic dysfunction (Chronic) HLD (hyperlipidemia) (Chronic) PAD (peripheral artery disease) (Chronic) Coronary artery disease (Chronic) S/P LAD and LCx stenting BPH (benign prostatic hypertrophy) with urinary obstruction (Chronic) Depressive disorder (Chronic) HTN (hypertension) (Chronic) Atrial fibrillation (Chronic) GERD (gastroesophageal reflux disease) (Chronic) History of orchiectomy, unilateral (Chronic) Nephrolithiasis (Chronic) Personality disorder (Chronic) Medical History: Medical History (Last Reviewed 07/15/18 @ 17:11 by Harrison Rendon MD) CHF (congestive heart failure) (Chronic) I50.9 diastolic Pulmonary hypertension (Chronic) I27.20 Tobacco abuse (Chronic) Z72.0 AAA (abdominal aortic aneurysm) (Chronic) I71.4 PVD (peripheral vascular disease) (Chronic) I73.9 Long-term use of high-risk medication (Chronic) Z79.899 Stage 2 moderate COPD by GOLD classification (Chronic) J44.9 ARLENE (obstructive sleep apnea) (Chronic) G47.33 Central sleep apnea (Chronic) G47.31 Cardiomyopathy (Chronic) I42.9 SSS (sick sinus syndrome) (Chronic) I49.5 Autonomic dysfunction (Chronic) G90.9 HLD (hyperlipidemia) (Chronic) E78.5 PAD (peripheral artery disease) (Chronic) I73.9 Coronary artery disease (Chronic) I25.10 S/P LAD and LCx stenting BPH (benign prostatic hypertrophy) with urinary obstruction (Chronic) N40.1, N13.8 Depressive disorder (Chronic) F32.9 HTN (hypertension) (Chronic) I10 Atrial fibrillation (Chronic) I48.91 GERD (gastroesophageal reflux disease) (Chronic) K21.9 Nephrolithiasis (Chronic) Personality disorder (Chronic) F60.9 Acute respiratory failure with hypoxia (Resolved) J96.01 Suspected chronic. Acute hypoxia on admission without respiratory failure. Allergies Penicillins Allergy (Severe, Verified 07/05/18 11:08) Anaphylaxis adhesive Allergy (Verified 07/05/18 11:08) Rash Sulfa (Sulfonamide Antibiotics) Allergy (Verified 07/05/18 11:08) Rash lactose Adverse Reaction (Unknown, Verified 07/05/18 11:08) GI UPSET diazepam [From Valium] Adverse Reaction (Verified 07/05/18 11:08) hyper opposite effect desired HYPER OPPOSITE EFFECT DESIRED niacin [From Niaspan Extended-Release] Adverse Reaction (Verified 07/05/18 11:08) low bp LOW BP simvastatin Adverse Reaction (Verified 07/05/18 11:08) Pain in joints Home Medications: Ambulatory Orders Medication Instructions Recorded Cyanocobalamin [Vitamin B12] 1 tab PO DAILY 06/18/17 Melatonin 10 mg PO QHS 06/18/17 Omeprazole 20 mg PO DAILY 06/18/17 Vit A/Vit C/Vit E/Zinc/Copper 1 cap PO BID 06/18/17 [Preservision Areds Softgel] Duloxetine HCl 60 mg PO BID 03/16/18 Donepezil HCl [Aricept] 10 mg PO QHS 03/22/18 Pregabalin [Lyrica] 300 mg PO QHS 03/22/18 Tamsulosin HCl [Flomax] 0.4 mg PO DAILY@1730 03/22/18 Cholecalciferol (VIT D3) [Vitamin 1,000 unit PO 0800 04/22/18 D3] Oxycodone [Oxyir] 2.5 mg PO QHS 04/22/18 Mineral Oil/Petrolatum,White 1 applic TOPICAL 0600,2200 PRN 04/23/18 [Eucerin] Acetaminophen [Tylenol Tablet] 650 mg PO Q8H PRN 06/17/18 Potassium Chloride [K-Dur] 20 meq PO BID 06/17/18 Rosuvastatin Calcium [Crestor] 5 mg PO QHS 06/17/18 Finasteride [Proscar] 5 mg PO 0800 06/24/18 Prednisone 5 mg PO 0800 06/24/18 Rivaroxaban [Xarelto] 20 mg PO DAILY 07/15/18 Surgical History: Surgical History (Last Reviewed 07/15/18 @ 17:09 by BERENICE Wheatley) S/P TURP (status post transurethral resection of prostate) (Resolved) Z90.79 pacemaker implantation (Chronic) generator change History of inguinal hernia repair (Resolved) Z98.890, Z87.19 History of hemorrhoidectomy (Resolved) Z98.890 History of prostatectomy (Resolved) Z98.890, Z90.79 right ochiectomy (Resolved) History of appendectomy (Resolved) Z98.890, Z90.49 S/P PTCA (percutaneous transluminal coronary angioplasty) (Chronic) Z98.61 History of orchiectomy, unilateral (Chronic) Z90.79 Surgical History: angioplasty, appendectomy, cholecystectomy, herniorrhaphy, pacemaker implantation, TURP, - - Prostatectomy. orchiectomy. Psychiatric History: Anxiety, Depression Lives: Spouse/ Significant Other Smoking Status: Current every day smoker Alcohol: None Drugs: None - *Family History Paternal Family History: Family History (Last Reviewed 07/15/18 @ 17:09 by BERENICE Wheatley) Father CAD (coronary artery disease) Mother Breast cancer Arthritis CAD (coronary artery disease) Hypertension Sister CVA (cerebral vascular accident) Diabetes Hypertension Son CAD (coronary artery disease) Hypertension History Items: Heart Disease, Renal Disease Sibling Family History: Family History (Last Reviewed 07/15/18 @ 17:09 by BERENICE Wheatley) Father CAD (coronary artery disease) Mother Breast cancer Arthritis CAD (coronary artery disease) Hypertension Sister CVA (cerebral vascular accident) Diabetes Hypertension Son CAD (coronary artery disease) Hypertension History Items: Diabetes, Heart Disease Offspring Family History: Family History (Last Reviewed 07/15/18 @ 17:09 by BERENICE Wheatley) Father CAD (coronary artery disease) Mother Breast cancer Arthritis CAD (coronary artery disease) Hypertension Sister CVA (cerebral vascular accident) Diabetes Hypertension Son CAD (coronary artery disease) Hypertension History Items: Heart Disease Maternal Family History: Family History (Last Reviewed 07/15/18 @ 17:09 by BERENICE Wheatley) Father CAD (coronary artery disease) Mother Breast cancer Arthritis CAD (coronary artery disease) Hypertension Sister CVA (cerebral vascular accident) Diabetes Hypertension Son CAD (coronary artery disease) Hypertension History Items: Cancer, Heart Disease Review of Systems Constitutional: Reports: Chills, Fever, Weakness HEENT: Denies: Head Aches, Sinus Congestion, Sinus Drainage Cardiovascular: Denies: Chest Pain, Palpitations Respiratory: Denies: Cough, Shortness of breath at rest, Sputum production Gastrointestinal: Denies: Abdominal Pain, Nausea, Vomiting Genitourinary: Reports: - - Flank pain. Denies: Dysuria Musculoskeletal: Denies: Joint Pain, Joint Tenderness Skin: Denies: Rash, Wounds Neurological: Denies: Numbness, Tingling, Focal weakness Psychiatric: Reports: Anxiety, Depression Hematologic/ Lymphatic: Denies: Easy Bruising, Easy Bleeding VTE Information - Inpt Only VTE Present on Admission: No VTE Mechan Device Prophylaxis: None VTE Pharm Prophylaxis ordered?: Yes Patient Problems: Active and Suspected Problems (Last Reviewed 07/15/18 @ 17:11 by Harrison Rendon MD) Renal colic on left side (Acute) Ureterolithiasis (Acute) RICHI (acute kidney injury) (Acute) Severe sepsis (Acute) Severe sepsis (Acute) Pyelonephritis (Acute) - Physical Exam General: Alert, Oriented x3, Cooperative HEENT: Atraumatic, PERRLA, EOMI, Normocephalic Neck: Supple, No JVD, Negative Carotid Bruits Lungs: Clear to auscultation, Diminished Cardiovascular: Regular rate, Regular Rhythm, Normal S1, Normal S2, No murmurs Abdomen: Bowel Sounds Present, Soft, Non Tender, Tender - LLQ Extremities: No clubbing, No cyanosis, No edema, Capillary Refill Less than 3 Seconds Skin: No rashes, No breakdown Musculoskeletal: No Tenderness to Palpation of Joints or Extremities Neurological: Cranial nerves II-XII grossly intact, Neuro grossly intact Psych/Mental Status: Normal Affect, Appropriate Vital Signs Temp Pulse Resp BP Pulse Ox 100.7 F H 78 20 H 126/58 H 95 07/15/18 16:43 07/15/18 16:43 07/15/18 16:43 07/15/18 16:43 07/15/18 16:43 Oxygen Flow Rate (L/min) 2 Oxygen Delivery Method Room Air Weight: 168 lb 10.458 oz Body Mass Index (BMI) 24.2 Finger Stick Blood Glucose 118 Laboratory Tests Past 24 Hrs 07/15/18 07/15/18 07/15/18 14:58 14:58 14:58 WBC 13.5 H RBC 4.52 L Hgb 11.6 L Hct 38.6 L MCV 85.4 MCH 25.7 L MCHC 30.1 L RDW 21.4 H RDW Differential 67.0 H Plt Count 108 L MPV TNP Immature Gran % (Auto) 0.100 Neut % (Auto) 93.3 H Lymph % (Auto) 2.8 L [place] % (Auto) 3.4 Eos % (Auto) 0.1 Baso % (Auto) 0.3 Absolute Neuts (auto) 12.6 H Absolute Lymphs (auto) 0.37 L Total Counted Not Reportable Differential Comment SCANNED Plt Morphology Comment LARGE Anisocytosis 1+ PT 19.9 H INR 1.7 APTT 40.8 H Sodium 140 Potassium 4.0 Chloride 109 H Carbon Dioxide 26.0 Anion Gap 5 BUN 22 H Creatinine 2.12 H Estim Creat Clear Calc 29.17 Est GFR (MDRD) Af Amer 39 L Est GFR (MDRD) Non-Af 32 L BUN/Creatinine Ratio 10.4 Glucose 92 Lactic Acid Calcium 7.8 L Total Bilirubin 0.80 AST 21 ALT 26 Alkaline Phosphatase 92 Troponin I 0.023 Total Protein 5.1 L Albumin 2.5 L Globulin 2.6 Albumin/Globulin Ratio 1.0 Urine Color Urine Clarity Urine pH Ur Specific [place] Urine Protein Urine Glucose (UA) Urine Ketones Urine Occult Blood Urine Nitrite Urine Bilirubin Urine Urobilinogen Ur Leukocyte Esterase Urine RBC Urine WBC Ur Squamous Epith Cells Urine Bacteria Urine Mucus Blood Type Antibody Screen 07/15/18 07/15/18 07/15/18 14:58 14:58 16:11 WBC RBC Hgb Hct MCV MCH MCHC RDW RDW Differential Plt Count MPV Immature Gran % (Auto) Neut % (Auto) Lymph % (Auto) [place] % (Auto) Eos % (Auto) Baso % (Auto) Absolute Neuts (auto) Absolute Lymphs (auto) Total Counted Differential Comment Plt Morphology Comment Anisocytosis PT INR APTT Sodium Potassium Chloride Carbon Dioxide Anion Gap BUN Creatinine Estim Creat Clear Calc Est GFR (MDRD) Af Amer Est GFR (MDRD) Non-Af BUN/Creatinine Ratio Glucose Lactic Acid 3.9 H Calcium Total Bilirubin AST ALT Alkaline Phosphatase Troponin I Total Protein Albumin Globulin Albumin/Globulin Ratio Urine Color Pending Urine Clarity Pending Urine pH Pending Ur Specific [place] Pending Urine Protein Pending Urine Glucose (UA) Pending Urine Ketones Pending Urine Occult Blood Pending Urine Nitrite Pending Urine Bilirubin Pending Urine Urobilinogen Pending Ur Leukocyte Esterase Pending Urine RBC Pending Urine WBC Pending Ur Squamous Epith Cells Pending Urine Bacteria Pending Urine Mucus Pending Blood Type B POSITIVE Antibody Screen NEGATIVE Assessment/Plan All Active Problems (Last Reviewed 07/15/18 @ 17:11 by Harrison Rendon MD) Renal colic on left side (Acute) Ureterolithiasis (Acute) RICHI (acute kidney injury) (Acute) Severe sepsis (Acute) Severe sepsis (Acute) Pyelonephritis (Acute) S/P TURP (status post transurethral resection of prostate) (Resolved) History of inguinal hernia repair (Resolved) History of hemorrhoidectomy (Resolved) History of prostatectomy (Resolved) right ochiectomy (Resolved) History of appendectomy (Resolved) Acute respiratory failure with hypoxia (Resolved) Stool guaiac positive (Resolved) 1. Severe sepsis presumed secondary to obstructing left ureterolithiasis- UA pending. Urine and blood cultures pending. CT of abdomen shows 4 mm left ureter vesicle junction causing left-sided hydronephrosis and hydroureter with left perinephric stranding. Dr. Rendon consulted. Plan for stent placement tomorrow. IV rocephin. PRN pain regimen. Chest x-ray on admission with early infiltrate or atelectasis at the left lung base. Low suspicion for pneumonia. Patient denies cough. O2 stable on RA. 2. RICHI on CKD stage III- RICHI secondary to #1. 3. Chronic COPD-No acute exacerbation. Follows with Dr. Au. 4. Atrial fibrillation on anticoagulation with Xarelto-rate controlled. 5. Sick sinus syndrome status post pacemaker 6. BPH-continue Flomax, Proscar regimen. 7. Chronic diastolic CHF-no acute exacerbation. 8. Chronic intractable neck and back pain, debility with history of falls- PT/OT. 9. Obstructive sleep apnea-CPAP nightly. 10. Pulmonary hypertension 11. Dementia-continue Aricept regimen. 12. Depression/personality disorder-continue duloxetine regimen. 13. Hypertension-not on antihypertensive regimen. Continue to monitor. 14. CAD-continue statin, xarelto. 15. Tobacco dependence-encourage smoking cessation. DVT prophylaxis-xarelto This patient was seen by BERENICE Wheatley under the supervision of Dr. Chopra. <Olvin Chopra - Last Filed: 07/15/18 18:04> Problem List (1) Severe sepsis Status: Acute (2) Pyelonephritis Status: Acute (3) Nephrolithiasis Status: Chronic History of Present Illness The patient is a 77 year old M presents with back pain and shaking. Patient was diagnosed with severe sepsis in the ER as well as a 4 mm left ureteral stone with hydronephrosis and hydroureter ureter and left perinephric stranding. Patient received IV fluids and ceftriaxone in the emergency room. Urology was contacted and plan is for a stent on the . [] Past Medical History Medical History: Medical History (Last Reviewed 07/15/18 @ 18:01 by Olvin Chopra DO) CHF (congestive heart failure) (Chronic) I50.9 diastolic Pulmonary hypertension (Chronic) I27.20 Tobacco abuse (Chronic) Z72.0 AAA (abdominal aortic aneurysm) (Chronic) I71.4 PVD (peripheral vascular disease) (Chronic) I73.9 Long-term use of high-risk medication (Chronic) Z79.899 Stage 2 moderate COPD by GOLD classification (Chronic) J44.9 ARLENE (obstructive sleep apnea) (Chronic) G47.33 Central sleep apnea (Chronic) G47.31 Cardiomyopathy (Chronic) I42.9 SSS (sick sinus syndrome) (Chronic) I49.5 Autonomic dysfunction (Chronic) G90.9 HLD (hyperlipidemia) (Chronic) E78.5 PAD (peripheral artery disease) (Chronic) I73.9 Coronary artery disease (Chronic) I25.10 S/P LAD and LCx stenting BPH (benign prostatic hypertrophy) with urinary obstruction (Chronic) N40.1, N13.8 Depressive disorder (Chronic) F32.9 HTN (hypertension) (Chronic) I10 Atrial fibrillation (Chronic) I48.91 GERD (gastroesophageal reflux disease) (Chronic) K21.9 Nephrolithiasis (Chronic) Personality disorder (Chronic) F60.9 Acute respiratory failure with hypoxia (Resolved) J96.01 Suspected chronic. Acute hypoxia on admission without respiratory failure. Allergies Penicillins Allergy (Severe, Verified 07/05/18 11:08) Anaphylaxis adhesive Allergy (Verified 07/05/18 11:08) Rash Sulfa (Sulfonamide Antibiotics) Allergy (Verified 07/05/18 11:08) Rash lactose Adverse Reaction (Unknown, Verified 07/05/18 11:08) GI UPSET diazepam [From Valium] Adverse Reaction (Verified 07/05/18 11:08) hyper opposite effect desired HYPER OPPOSITE EFFECT DESIRED niacin [From Niaspan Extended-Release] Adverse Reaction (Verified 07/05/18 11:08) low bp LOW BP simvastatin Adverse Reaction (Verified 07/05/18 11:08) Pain in joints Surgical History: Surgical History (Last Reviewed 07/15/18 @ 17:09 by Consuelo Clayton NP-C) S/P TURP (status post transurethral resection of prostate) (Resolved) Z90.79 pacemaker implantation (Chronic) generator change History of inguinal hernia repair (Resolved) Z98.890, Z87.19 History of hemorrhoidectomy (Resolved) Z98.890 History of prostatectomy (Resolved) Z98.890, Z90.79 right ochiectomy (Resolved) History of appendectomy (Resolved) Z98.890, Z90.49 S/P PTCA (percutaneous transluminal coronary angioplasty) (Chronic) Z98.61 History of orchiectomy, unilateral (Chronic) Z90.79 Lives: Spouse/ Significant Other Smoking Status: Current every day smoker Alcohol: None Drugs: None - *Family History Paternal Family History: Family History (Last Reviewed 07/15/18 @ 18:01 by Olvin Chopra DO) Father CAD (coronary artery disease) Mother Breast cancer Arthritis CAD (coronary artery disease) Hypertension Sister CVA (cerebral vascular accident) Diabetes Hypertension Son CAD (coronary artery disease) Hypertension Sibling Family History: Family History (Last Reviewed 07/15/18 @ 18:01 by Olvin Chopra DO) Father CAD (coronary artery disease) Mother Breast cancer Arthritis CAD (coronary artery disease) Hypertension Sister CVA (cerebral vascular accident) Diabetes Hypertension Son CAD (coronary artery disease) Hypertension Offspring Family History: Family History (Last Reviewed 07/15/18 @ 18:01 by Olvin Chopra DO) Father CAD (coronary artery disease) Mother Breast cancer Arthritis CAD (coronary artery disease) Hypertension Sister CVA (cerebral vascular accident) Diabetes Hypertension Son CAD (coronary artery disease) Hypertension Maternal Family History: Family History (Last Reviewed 07/15/18 @ 18:01 by Olvin Chopra DO) Father CAD (coronary artery disease) Mother Breast cancer Arthritis CAD (coronary artery disease) Hypertension Sister CVA (cerebral vascular accident) Diabetes Hypertension Son CAD (coronary artery disease) Hypertension Review of Systems Constitutional: Reports: Chills, Fever, Weakness HEENT: Denies: Head Aches, Sinus Congestion, Sinus Drainage Cardiovascular: Denies: Chest Pain, Palpitations Respiratory: Denies: Cough, Shortness of breath at rest, Sputum production Gastrointestinal: Denies: Abdominal Pain, Nausea, Vomiting Genitourinary: Reports: -. Denies: Dysuria Musculoskeletal: Denies: Joint Pain, Joint Tenderness Skin: Denies: Rash, Wounds Neurological: Denies: Focal weakness, Numbness, Tingling Psychiatric: Reports: Anxiety, Depression Hematologic/ Lymphatic: Denies: Easy Bruising, Easy Bleeding VTE Information - Inpt Only VTE Present on Admission: No VTE Mechan Device Prophylaxis: None VTE Pharm Prophylaxis ordered?: Yes - Physical Exam General: Alert, Cooperative HEENT: Atraumatic, Normocephalic Neck: Supple, Negative Carotid Bruits Lungs: Clear to auscultation, Diminished Cardiovascular: Regular rate, Regular Rhythm, Normal S1, Normal S2, No murmurs Abdomen: Bowel Sounds Present, Soft, Non Tender, Tender Extremities: No clubbing, No edema Skin: No rashes, No breakdown Psych/Mental Status: Normal Affect, Appropriate Vital Signs Temp Pulse Resp BP Pulse Ox 37.8 C H 77 18 102/71 95 07/15/18 17:40 07/15/18 17:40 07/15/18 17:40 07/15/18 17:40 07/15/18 17:40 Oxygen Flow Rate (L/min) 2 Oxygen Delivery Method Nasal Cannula Weight: 74.298 kg Body Mass Index (BMI) 23.5 Finger Stick Blood Glucose 118 Laboratory Tests Past 24 Hrs 07/15/18 07/15/18 07/15/18 14:58 14:58 14:58 WBC 13.5 H RBC 4.52 L Hgb 11.6 L Hct 38.6 L MCV 85.4 MCH 25.7 L MCHC 30.1 L RDW 21.4 H RDW Differential 67.0 H Plt Count 108 L MPV TNP Immature Gran % (Auto) 0.100 Neut % (Auto) 93.3 H Lymph % (Auto) 2.8 L [place] % (Auto) 3.4 Eos % (Auto) 0.1 Baso % (Auto) 0.3 Absolute Neuts (auto) 12.6 H Absolute Lymphs (auto) 0.37 L Total Counted Not Reportable Differential Comment SCANNED Plt Morphology Comment LARGE Anisocytosis 1+ PT 19.9 H INR 1.7 APTT 40.8 H Sodium 140 Potassium 4.0 Chloride 109 H Carbon Dioxide 26.0 Anion Gap 5 BUN 22 H Creatinine 2.12 H Estim Creat Clear Calc 29.17 Est GFR (MDRD) Af Amer 39 L Est GFR (MDRD) Non-Af 32 L BUN/Creatinine Ratio 10.4 Glucose 92 Lactic Acid Calcium 7.8 L Total Bilirubin 0.80 AST 21 ALT 26 Alkaline Phosphatase 92 Troponin I 0.023 Total Protein 5.1 L Albumin 2.5 L Globulin 2.6 Albumin/Globulin Ratio 1.0 Urine Color Urine Clarity Urine pH Ur Specific [place] Urine Protein Urine Glucose (UA) Urine Ketones Urine Occult Blood Urine Nitrite Urine Bilirubin Urine Urobilinogen Ur Leukocyte Esterase Urine RBC Urine WBC Ur Squamous Epith Cells Urine Bacteria Urine Mucus Blood Type Antibody Screen 07/15/18 07/15/18 07/15/18 14:58 14:58 16:11 WBC RBC Hgb Hct MCV MCH MCHC RDW RDW Differential Plt Count MPV Immature Gran % (Auto) Neut % (Auto) Lymph % (Auto) [place] % (Auto) Eos % (Auto) Baso % (Auto) Absolute Neuts (auto) Absolute Lymphs (auto) Total Counted Differential Comment Plt Morphology Comment Anisocytosis PT INR APTT Sodium Potassium Chloride Carbon Dioxide Anion Gap BUN Creatinine Estim Creat Clear Calc Est GFR (MDRD) Af Amer Est GFR (MDRD) Non-Af BUN/Creatinine Ratio Glucose Lactic Acid 3.9 H Calcium Total Bilirubin AST ALT Alkaline Phosphatase Troponin I Total Protein Albumin Globulin Albumin/Globulin Ratio Urine Color Yellow Urine Clarity Cloudy Urine pH 5.0 Ur Specific [place] 1.015 Urine Protein 30 H Urine Glucose (UA) Normal Urine Ketones 5 H Urine Occult Blood 250 H Urine Nitrite Positive H Urine Bilirubin 1 H Urine Urobilinogen 1 H Ur Leukocyte Esterase 500 H Urine RBC 0-5 SEEN Urine WBC 50-100 SEEN Ur Squamous Epith Cells 0 SEEN Urine Bacteria 1+ Urine Mucus 0 SEEN Blood Type B POSITIVE Antibody Screen NEGATIVE Assessment/Plan Patient seen and examined independently. Data reviewed. I agree with the above note by the physician promotions assistant. 1. Severe sepsis: Secondary to pyelonephritis. Follow-up cultures. 2. Suspected pyelonephritis: Continue ceftriaxone. Adjust antibiotics accordingly based on culture. 3. Left ureteral stone: Patient is medically cleared to proceed with surgery for stent on the . Urology on consult. 4. Acute kidney injury: Suspected prerenal. IV fluids reevaluate in the morning. 5. A. fib: Hold Xarelto for surgery. Resume afterwards. Code Visit Inpatient E&M: 65880 Init Hosp L3
[2018-07-15 17:01] LABS: Urine Bilirubin Dipstick 1 mg/dL (Negative)
[2018-07-15 17:08] LABS: Red Blood Cells-Urine 0-5 SEEN /hpf (0-5); White Blood Cells 50-100 SEEN /hpf (0-5)
[2018-07-15 17:09] LABS: Bacteria 1+ /hpf (None Seen)
--- NOTE | 2018-07-15 17:11 | PCM.CONS.U ---
Reason for Consult Date of Consultation: 07/15/18 Reason for Consultation: Obstructing left ureteral calculi History of Present Illness: The patient is a 77 year old male known to my practice comes into the hospital with an infection and obstructing stone in the mid distal ureter on the left side causing severe pain on the left side. He is can be admitted for pain control there is a concern for an infection recurrence in the urine for culture start him on antibiotics and tomorrow given placed on the schedule for cystoscopy and left stent placement Past Medical History Past Medical History (Chronic Problems): Chronic Problems (Last Reviewed 07/05/18 @ 11:26 by Caitlin Hamilton NP-C) Degenerative joint disease involving multiple joints (Chronic) Paroxysmal atrial fibrillation (Chronic) BPH (benign prostatic hyperplasia) (Chronic) Depression (Chronic) Peripheral arterial occlusive disease (Chronic) Alzheimer's disease (Chronic) Debility (Chronic) 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) Anxiety (Chronic) Neuropathy (Chronic) Chronic kidney disease (Chronic) Chronic diastolic heart failure (Chronic) COPD (chronic obstructive pulmonary disease) (Chronic) DDD (degenerative disc disease), cervical (Chronic) Spondylosis without myelopathy or radiculopathy, cervical region (Chronic) Arterial ischemic stroke (Chronic) CHF (congestive heart failure) (Chronic) diastolic Pulmonary hypertension (Chronic) pacemaker implantation (Chronic) generator change Tobacco abuse (Chronic) AAA (abdominal aortic aneurysm) (Chronic) PVD (peripheral vascular disease) (Chronic) Long-term use of high-risk medication (Chronic) Stage 2 moderate COPD by GOLD classification (Chronic) Acute respiratory failure with hypoxia (Chronic) Suspected chronic. Acute hypoxia on admission without respiratory failure. ARLENE (obstructive sleep apnea) (Chronic) Central sleep apnea (Chronic) S/P PTCA (percutaneous transluminal coronary angioplasty) (Chronic) Cardiomyopathy (Chronic) SSS (sick sinus syndrome) (Chronic) Autonomic dysfunction (Chronic) HLD (hyperlipidemia) (Chronic) PAD (peripheral artery disease) (Chronic) Coronary artery disease (Chronic) S/P LAD and LCx stenting BPH (benign prostatic hypertrophy) with urinary obstruction (Chronic) Depressive disorder (Chronic) HTN (hypertension) (Chronic) Atrial fibrillation (Chronic) GERD (gastroesophageal reflux disease) (Chronic) History of orchiectomy, unilateral (Chronic) Nephrolithiasis (Chronic) Personality disorder (Chronic) Medical History: Medical History (Last Reviewed 03/29/19 @ 17:11 by Harrison Rendon MD) CHF (congestive heart failure) (Chronic) I50.9 diastolic Pulmonary hypertension (Chronic) I27.20 Tobacco abuse (Chronic) Z72.0 AAA (abdominal aortic aneurysm) (Chronic) I71.4 PVD (peripheral vascular disease) (Chronic) I73.9 Long-term use of high-risk medication (Chronic) Z79.899 Stage 2 moderate COPD by GOLD classification (Chronic) J44.9 Acute respiratory failure with hypoxia (Chronic) J96.01 Suspected chronic. Acute hypoxia on admission without respiratory failure. ARLENE (obstructive sleep apnea) (Chronic) G47.33 Central sleep apnea (Chronic) G47.31 Cardiomyopathy (Chronic) I42.9 SSS (sick sinus syndrome) (Chronic) I49.5 Autonomic dysfunction (Chronic) G90.9 HLD (hyperlipidemia) (Chronic) E78.5 PAD (peripheral artery disease) (Chronic) I73.9 Coronary artery disease (Chronic) I25.10 S/P LAD and LCx stenting BPH (benign prostatic hypertrophy) with urinary obstruction (Chronic) N40.1, N13.8 Depressive disorder (Chronic) F32.9 HTN (hypertension) (Chronic) I10 Atrial fibrillation (Chronic) I48.91 GERD (gastroesophageal reflux disease) (Chronic) K21.9 Nephrolithiasis (Chronic) Personality disorder (Chronic) F60.9 Allergies Penicillins Allergy (Severe, Verified 07/05/18 11:08) Anaphylaxis adhesive Allergy (Verified 07/05/18 11:08) Rash Sulfa (Sulfonamide Antibiotics) Allergy (Verified 07/05/18 11:08) Rash lactose Adverse Reaction (Unknown, Verified 07/05/18 11:08) GI UPSET diazepam [From Valium] Adverse Reaction (Verified 07/05/18 11:08) hyper opposite effect desired HYPER OPPOSITE EFFECT DESIRED niacin [From Niaspan Extended-Release] Adverse Reaction (Verified 07/05/18 11:08) low bp LOW BP simvastatin Adverse Reaction (Verified 07/05/18 11:08) Pain in joints Home Medications: Ambulatory Orders Medication Instructions Recorded Cyanocobalamin [Vitamin B12] 1 tab PO DAILY 06/18/17 Melatonin 10 mg PO QHS 06/18/17 Omeprazole 20 mg PO DAILY 06/18/17 Vit A/Vit C/Vit E/Zinc/Copper 1 cap PO BID 06/18/17 [Preservision Areds Softgel] Duloxetine HCl 60 mg PO BID 03/16/18 Donepezil HCl [Aricept] 10 mg PO QHS 03/22/18 Pregabalin [Lyrica] 300 mg PO QHS 03/22/18 Tamsulosin HCl [Flomax] 0.4 mg PO DAILY@1730 03/22/18 Cholecalciferol (VIT D3) [Vitamin 1,000 unit PO 0800 04/22/18 D3] Oxycodone [Oxyir] 2.5 mg PO QHS 04/22/18 Mineral Oil/Petrolatum,White 1 applic TOPICAL 0600,2200 PRN 04/23/18 [Eucerin] Acetaminophen [Tylenol Tablet] 650 mg PO Q8H PRN 06/17/18 Potassium Chloride [K-Dur] 20 meq PO BID 06/17/18 Rosuvastatin Calcium [Crestor] 5 mg PO QHS 06/17/18 Finasteride [Proscar] 5 mg PO 0800 06/24/18 Prednisone 5 mg PO 0800 06/24/18 Rivaroxaban [Xarelto] 20 mg PO DAILY 07/15/18 Surgical History: Surgical History (Last Reviewed 07/15/18 @ 17:12 by Harrison Rendon MD) S/P TURP (status post transurethral resection of prostate) (Resolved) Z90.79 pacemaker implantation (Chronic) generator change History of inguinal hernia repair (Resolved) Z98.890, Z87.19 History of hemorrhoidectomy (Resolved) Z98.890 History of prostatectomy (Resolved) Z98.890, Z90.79 right ochiectomy (Resolved) History of appendectomy (Resolved) Z98.890, Z90.49 S/P PTCA (percutaneous transluminal coronary angioplasty) (Chronic) Z98.61 History of orchiectomy, unilateral (Chronic) Z90.79 Surgical History: angioplasty, appendectomy, cholecystectomy, herniorrhaphy, pacemaker implantation, TURP, - - Prostatectomy. orchiectomy. Lives: Spouse/ Significant Other Smoking Status: Current every day smoker - *Family History Paternal Family History: Family History (Last Reviewed 07/15/18 @ 17:09 by BERENICE Wheatley) Father CAD (coronary artery disease) Mother Breast cancer Arthritis CAD (coronary artery disease) Hypertension Sister CVA (cerebral vascular accident) Diabetes Hypertension Son CAD (coronary artery disease) Hypertension History Items: Heart Disease, Renal Disease Sibling Family History: Family History (Last Reviewed 07/15/18 @ 17:09 by BERENICE Wheatley) Father CAD (coronary artery disease) Mother Breast cancer Arthritis CAD (coronary artery disease) Hypertension Sister CVA (cerebral vascular accident) Diabetes Hypertension Son CAD (coronary artery disease) Hypertension History Items: Diabetes, Heart Disease Offspring Family History: Family History (Last Reviewed 07/15/18 @ 17:09 by BERENICE Wheatley) Father CAD (coronary artery disease) Mother Breast cancer Arthritis CAD (coronary artery disease) Hypertension Sister CVA (cerebral vascular accident) Diabetes Hypertension Son CAD (coronary artery disease) Hypertension History Items: Heart Disease Maternal Family History: Family History (Last Reviewed 07/15/18 @ 17:09 by BERENICE Wheatley) Father CAD (coronary artery disease) Mother Breast cancer Arthritis CAD (coronary artery disease) Hypertension Sister CVA (cerebral vascular accident) Diabetes Hypertension Son CAD (coronary artery disease) Hypertension History Items: Cancer, Heart Disease Review of Systems Constitutional: Reports: Fever. Denies: Chills, Weight Change HEENT: Denies: Head Aches, Sinus Congestion, Sinus Drainage Cardiovascular: Denies: Chest Pain, Palpitations Respiratory: Denies: Cough, Shortness of breath at rest, Sputum production Gastrointestinal: Reports: Abdominal Pain, - - Left abdominal pain. Denies: Nausea, Vomiting Genitourinary: Reports: Frequency, Incontinence. Denies: Dysuria Musculoskeletal: Denies: Joint Pain, Joint Tenderness Skin: Denies: Rash, Wounds Neurological: Denies: Numbness, Tingling, Focal weakness Psychiatric: Denies: Anxiety, Depression, Homicidal Ideations, Suicidal Ideations Hematologic/ Lymphatic: Denies: Easy Bruising, Easy Bleeding Physical Exam - Physical Exam Vital Signs Temp 100.7 F H 07/15/18 16:43 Pulse 78 07/15/18 16:43 Resp 20 H 07/15/18 16:43 BP 126/58 H 07/15/18 16:43 Pulse Ox 95 07/15/18 16:43 Intake & Output 07/13/18 07/14/18 07/15/18 23:59 23:59 23:59 Weight: 76.5 kg General: Alert, Oriented x3 HEENT: Atraumatic Oral: Moist Mucosa Neck: Supple Lungs: Normal air movement Cardiovascular: Regular rate Abdomen: Soft Laboratory Tests Past 24 Hrs 07/15/18 07/15/18 07/15/18 14:58 14:58 14:58 WBC 13.5 H RBC 4.52 L Hgb 11.6 L Hct 38.6 L MCV 85.4 MCH 25.7 L MCHC 30.1 L RDW 21.4 H RDW Differential 67.0 H Plt Count 108 L MPV TNP Immature Gran % (Auto) 0.100 Neut % (Auto) 93.3 H Lymph % (Auto) 2.8 L [place] % (Auto) 3.4 Eos % (Auto) 0.1 Baso % (Auto) 0.3 Absolute Neuts (auto) 12.6 H Absolute Lymphs (auto) 0.37 L Total Counted Not Reportable Differential Comment SCANNED Plt Morphology Comment LARGE Anisocytosis 1+ PT 19.9 H INR 1.7 APTT 40.8 H Sodium 140 Potassium 4.0 Chloride 109 H Carbon Dioxide 26.0 Anion Gap 5 BUN 22 H Creatinine 2.12 H Estim Creat Clear Calc 29.17 Est GFR (MDRD) Af Amer 39 L Est GFR (MDRD) Non-Af 32 L BUN/Creatinine Ratio 10.4 Glucose 92 Lactic Acid Calcium 7.8 L Total Bilirubin 0.80 AST 21 ALT 26 Alkaline Phosphatase 92 Troponin I 0.023 Total Protein 5.1 L Albumin 2.5 L Globulin 2.6 Albumin/Globulin Ratio 1.0 Urine Color Urine Clarity Urine pH Ur Specific [place] Urine Protein Urine Glucose (UA) Urine Ketones Urine Occult Blood Urine Nitrite Urine Bilirubin Urine Urobilinogen Ur Leukocyte Esterase Urine RBC Urine WBC Ur Squamous Epith Cells Urine Bacteria Urine Mucus Blood Type Antibody Screen 07/15/18 07/15/18 07/15/18 14:58 14:58 16:11 WBC RBC Hgb Hct MCV MCH MCHC RDW RDW Differential Plt Count MPV Immature Gran % (Auto) Neut % (Auto) Lymph % (Auto) [place] % (Auto) Eos % (Auto) Baso % (Auto) Absolute Neuts (auto) Absolute Lymphs (auto) Total Counted Differential Comment Plt Morphology Comment Anisocytosis PT INR APTT Sodium Potassium Chloride Carbon Dioxide Anion Gap BUN Creatinine Estim Creat Clear Calc Est GFR (MDRD) Af Amer Est GFR (MDRD) Non-Af BUN/Creatinine Ratio Glucose Lactic Acid 3.9 H Calcium Total Bilirubin AST ALT Alkaline Phosphatase Troponin I Total Protein Albumin Globulin Albumin/Globulin Ratio Urine Color Yellow Urine Clarity Cloudy Urine pH 5.0 Ur Specific [place] 1.015 Urine Protein 30 H Urine Glucose (UA) Normal Urine Ketones 5 H Urine Occult Blood 250 H Urine Nitrite Positive H Urine Bilirubin 1 H Urine Urobilinogen 1 H Ur Leukocyte Esterase 500 H Urine RBC 0-5 SEEN Urine WBC 50-100 SEEN Ur Squamous Epith Cells 0 SEEN Urine Bacteria 1+ Urine Mucus 0 SEEN Blood Type B POSITIVE Antibody Screen NEGATIVE Assessment/Plan All Active Problems (Last Reviewed 07/05/18 @ 11:26 by Caitlin Hamilton, MARILYN-C) Acute confusional state of cerebrovascular origin (Acute) Renal colic on left side (Acute) Ureterolithiasis (Acute) RICHI (acute kidney injury) (Acute) S/P TURP (status post transurethral resection of prostate) (Resolved) History of inguinal hernia repair (Resolved) History of hemorrhoidectomy (Resolved) History of prostatectomy (Resolved) right ochiectomy (Resolved) History of appendectomy (Resolved) Stool guaiac positive (Resolved) 77-year-old male presents with obstructing stone in the distal left ureter, he would be admitted to the hospital for possible infection will draw cultures start him on antibiotics. N.p.o. at midnight
[2018-07-15] MEDS: 0.9% Normal Saline 1,000 ML 150 ML IV (18:13)
[2018-07-15 19:08] LABS: Reflex Lactate? Y
[2018-07-15] MEDS: Tamsulosin HCl 0.4 MG Capsule PO (19:56)
[2018-07-15 20:06] LABS: Lactic Acid 3.7 mmol/L (0.4-2.0)
[2018-07-15] MEDS: Donepezil HCl 10 MG Tablet PO (21:27)
[2018-07-15] MEDS: Pregabalin 75 MG Capsule 300 MG PO (21:27)
[2018-07-15] MEDS: DULoxetine Hcl 60 MG Capsule PO (21:28)
[2018-07-15] MEDS: Multivitamin (Healthy Eyes) Capsule 1 CAP PO (21:28)
[2018-07-15] MEDS: Atorvastatin Calcium 10 MG Tablet PO (21:28)
[2018-07-15] MEDS: MELATONIN 10 MG TABLET PO (21:28)
[2018-07-16] VITALS (57 sets, daily range): BP systolic 60–143; BP diastolic 38–77; PULSE 86–110; RESP 12–48; TEMP 36.4–38.6; O2SAT 73–100; BMI 23.5
[2018-07-16] MEDS: 0.9% Normal Saline 1,000 ML 100 ML IV (01:53)
--- NOTE | 2018-07-16 03:50 | RAD_ITS ---
STUDY: X-RAY CHEST REASON FOR EXAM: Male, 77 years old. Shortness of breath. Patient has decreased oxygenation. TECHNIQUE: Single AP portable view of the chest. COMPARISON: July 15, 2018. FINDINGS: Cardiac monitoring leads are present. Patient has left-sided intercardiac pacemaker. The lungs are underexpanded with obscuration of the lung bases. There is suggestion for bilateral basilar airspace consolidation and atelectasis. There is a small right-sided pleural effusion. There is mild cardiac enlargement. Normal mediastinum and elis. Normal visualized pulmonary arteries. There is atherosclerotic calcification of the aortic arch with tortuosity. There is demineralization of the osseous structures. There are degenerative changes of both shoulders. There is no demonstrated abnormality of the visualized soft tissue structures of the upper abdomen. RAD/Chest 1 View (Portable) IMPRESSION: Right basilar airspace consolidation, atelectasis and small pleural effusion possibly representing pneumonia. Electronically Signed: Bree Agarwal MD at 4:58 EDT , Service support ,
[2018-07-16 04:26] LABS: Base Excess -12 mmol/L (-2 to +2); Bicarbonate 14.4 mmol/L (22-26); Blood Gas Specimen Type ART; O2 Delivery Device NRB Mask; PO2 63 mmHG (75-100); SITE R Brachial; SO2 89 % (95-99); Total Carbon Dioxide 15 mmol/L; pCO2 30.7 mmHg (35-45); pH 7.28 (7.35-7.45)
[2018-07-16] MEDS: Furosemide 40 MG/4 ML Vial IV (04:27)
--- NOTE | 2018-07-16 05:40 | CPS ---
BiPAP put on patient and patient's RR went up to mid 40's low 50's. This RT tried other settings to help but it didn't. This RT talked to and he said that it can be removed. Patient's RR went down to 24 after BIPAP and seemed to be more comfortable. 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
--- NOTE | 2018-07-16 06:14 | NURSING ---
Report called to ICU nurse Brian.
--- NOTE | 2018-07-16 06:31 | RAD_ITS ---
STUDY: X-RAY CHEST REASON FOR EXAM: Male, 77 years old. Increasing shortness of breath. TECHNIQUE: Single AP portable view of the chest. COMPARISON: July 16 2018 time stamped 4:00 AM FINDINGS: Cardiac monitoring leads are present. Left-sided intracardiac pacemaker. The lungs are expanded. There is right basilar airspace consolidation and/or subsegmental atelectasis. There is no demonstrated pleural abnormality. There is mild cardiac enlargement. Normal mediastinum and elis. Normal visualized pulmonary arteries. There is atherosclerotic calcification of the aortic arch with tortuosity. Normal visualized thoracic spine. Normal visualized ribs, clavicles, and shoulders. There is no demonstrated abnormality of the visualized soft tissue structures of the upper abdomen. RAD/Chest 1 View (Portable) IMPRESSION: Right basilar airspace consolidation and/or subsegmental atelectasis. Electronically Signed: Bree Agarwal MD at 8:09 EDT , Service support ,
--- NOTE | 2018-07-16 06:56 | NURSING ---
Spoke with son, Hunter Parker III. States pt is a DNR/DNI status, but they are ok with the placement of a PICC and pressor therapy if needed. Dr. Au updated.
--- NOTE | 2018-07-16 06:56 | NURSING ---
Dentures removed. Placed in cup at bedside.
[2018-07-16] MEDS: 0.9% NaCl Peripheral Flush Adult/Peds IV ×4 (07:12→11:57)
--- NOTE | 2018-07-16 07:18 | CON.PCM_ITS ---
Capacity - Capacity Assessment Tool Can the patient make a choice & communicate that choice?: No Can the patient understand benefits, risks and alternatives?: No Can the patient make a logical, rational choice?: No Is there an impending, emergent risk to the patient?: Yes Does the patient have an Advance Directive?: Yes Is there a Surrogate Available?: Yes i.e. close relative (spouse, child, parent, sibling)?: Yes Reason for Consult Date of Consultation: 07/16/18 Reason for Consultation: Respiratory failure History of Present Illness: The patient is a 77-year-old male, with a history as outlined below, who presented to the emergency department on July 15 with complaints of flank pain and concerns for kidney stones. The patient is currently followed in the pulmonary medicine clinic by Dr. Parikh due to a history of COPD. He was last seen by our nurse practitioner on July 05, at which time, he was still noted to be smoking three quarters of a pack of cigarettes daily. He does have a history of a DVT and paroxysmal atrial fibrillation and is supposed to be on Xarelto as an outpatient. The patient Xarelto was subsequently placed on hold at the time of his admission due to the perceived need for an upcoming surgical procedure. On presentation to the emergency department, the patient was noted to be afebrile with low/normal blood pressure readings. Initial laboratory evaluation revealed an elevated white blood cell count of 14,000. Chemistry profile rev ealed evidence of acute kidney injury with a creatinine of 2.12. Lactate was elevated to 3.9. Urinalysis was positive for nitrites and leukocyte esterase. 1+ urine bacteria was noted. CT abdomen revealed a 4 mm calculus in the left ureterovesicular junction causing left-sided hydronephrosis and hydroureter with left perinephric stranding. Plain film chest x-ray revealed evidence of a right basilar infiltrate. The patient received supplemental IV fluid hydration and was started on antibiotics. Urology was consulted. The patient was subsequently transferred to the progressive care unit for ongoing management. 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 He was also noted to be increasingly tachypneic. Attempts to utilize BiPAP apparently led to worsening in his apnea. The patient was also noted to be somewhat hypotensive. There does not appear to be documentation regarding the events overnight. Regardless, it does appear that the patient received a combination of both supplemental IV fluids and IV Lasix. Due to the patient's tenuous status he had to be transferred to the medical intensive care unit. It was noted that upon admission to the hospital in order for a CODE STATUS was never entered. On arrival to the ICU, the patient's son was contacted who indicated that the patient is in fact a DNR CCA without intubation. Central Venous Catheter (CVC, Central Line) Placement Indication: Intravenous access Consent was obtained from: Family A time-out was completed verifying correct patient, procedure, site, positioning, and special equipment if applicable. The patient was placed in a dependent position appropriate for central line placement based on the vein to be cannulated. The patient?s right neck was prepped and draped in sterile fashion. 1% Lidocaine was used to anesthetize the surrounding skin area. A triple lumen catheter was introduced into the the internal jugular vein using the Seldinger technique and under ultrasound guidance. The catheter was threaded smoothly over the guide wire and appropriate blood return was obtained. Each lumen of the catheter was evacuated of air and flushed with sterile saline. The catheter was then sutured in place to the skin and a sterile dressing applied. CXR to confirm appropriate positioning is pending. ULTRASOUND GUIDANCE STATEMENT (Vascular Access): I performed ultrasound image acquisition and interpretation for needle placement during this procedure. The vessel was identified and was found to be free of thrombosis by compression technique. A safe point of entry was marked at the skin and an angle for access was determined. The needle was guided by obtaining free flowing fluid and by real time visualization. Past Medical History Past Medical History (Chronic Problems): Chronic Problems (Last Reviewed 07/15/18 @ 18:01 by Olvin Chopra DO) Degenerative joint disease involving multiple joints (Chronic) Paroxysmal atrial fibrillation (Chronic) BPH (benign prostatic hyperplasia) (Chronic) Depression (Chronic) Peripheral arterial occlusive disease (Chronic) Alzheimer's disease (Chronic) Debility (Chronic) 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) Anxiety (Chronic) Neuropathy (Chronic) Chronic kidney disease (Chronic) Chronic diastolic heart failure (Chronic) COPD (chronic obstructive pulmonary disease) (Chronic) DDD (degenerative disc disease), cervical (Chronic) Spondylosis without myelopathy or radiculopathy, cervical region (Chronic) Arterial ischemic stroke (Chronic) CHF (congestive heart failure) (Chronic) diastolic Pulmonary hypertension (Chronic) pacemaker implantation (Chronic) generator change Tobacco abuse (Chronic) AAA (abdominal aortic aneurysm) (Chronic) PVD (peripheral vascular disease) (Chronic) Long-term use of high-risk medication (Chronic) Stage 2 moderate COPD by GOLD classification (Chronic) ARLENE (obstructive sleep apnea) (Chronic) Central sleep apnea (Chronic) S/P PTCA (percutaneous transluminal coronary angioplasty) (Chronic) Cardiomyopathy (Chronic) SSS (sick sinus syndrome) (Chronic) Autonomic dysfunction (Chronic) HLD (hyperlipidemia) (Chronic) PAD (peripheral artery disease) (Chronic) Coronary artery disease (Chronic) S/P LAD and LCx stenting BPH (benign prostatic hypertrophy) with urinary obstruction (Chronic) Depressive disorder (Chronic) HTN (hypertension) (Chronic) Atrial fibrillation (Chronic) GERD (gastroesophageal reflux disease) (Chronic) History of orchiectomy, unilateral (Chronic) Nephrolithiasis (Chronic) Personality disorder (Chronic) Medical History: Medical History (Last Reviewed 07/15/18 @ 18:01 by Olvin Chopra DO) CHF (congestive heart failure) (Chronic) I50.9 diastolic Pulmonary hypertension (Chronic) I27.20 Tobacco abuse (Chronic) Z72.0 AAA (abdominal aortic aneurysm) (Chronic) I71.4 PVD (peripheral vascular disease) (Chronic) I73.9 Long-term use of high-risk medication (Chronic) Z79.899 Stage 2 moderate COPD by GOLD classification (Chronic) J44.9 ARLENE (obstructive sleep apnea) (Chronic) G47.33 Central sleep apnea (Chronic) G47.31 Cardiomyopathy (Chronic) I42.9 SSS (sick sinus syndrome) (Chronic) I49.5 Autonomic dysfunction (Chronic) G90.9 HLD (hyperlipidemia) (Chronic) E78.5 PAD (peripheral artery disease) (Chronic) I73.9 Coronary artery disease (Chronic) I25.10 S/P LAD and LCx stenting BPH (benign prostatic hypertrophy) with urinary obstruction (Chronic) N40.1, N13.8 Depressive disorder (Chronic) F32.9 HTN (hypertension) (Chronic) I10 Atrial fibrillation (Chronic) I48.91 GERD (gastroesophageal reflux disease) (Chronic) K21.9 Nephrolithiasis (Chronic) Personality disorder (Chronic) F60.9 Acute respiratory failure with hypoxia (Resolved) J96.01 Suspected chronic. Acute hypoxia on admission without respiratory failure. Allergies Penicillins Allergy (Severe, Verified 07/05/18 11:08) Anaphylaxis adhesive Allergy (Verified 07/05/18 11:08) Rash Sulfa (Sulfonamide Antibiotics) Allergy (Verified 07/05/18 11:08) Rash lactose Adverse Reaction (Unknown, Verified 07/05/18 11:08) GI UPSET diazepam [From Valium] Adverse Reaction (Verified 07/05/18 11:08) hyper opposite effect desired HYPER OPPOSITE EFFECT DESIRED niacin [From Niaspan Extended-Release] Adverse Reaction (Verified 07/05/18 11:08) low bp LOW BP simvastatin Adverse Reaction (Verified 07/05/18 11:08) Pain in joints Home Medications: Ambulatory Orders Medication Instructions Recorded Cyanocobalamin [Vitamin B12] 1 tab PO DAILY 06/18/17 Melatonin 10 mg PO QHS 06/18/17 Omeprazole 20 mg PO DAILY 06/18/17 Vit A/Vit C/Vit E/Zinc/Copper 1 cap PO BID 06/18/17 [Preservision Areds Softgel] Duloxetine HCl 60 mg PO BID 03/16/18 Donepezil HCl [Aricept] 10 mg PO QHS 03/22/18 Pregabalin [Lyrica] 300 mg PO QHS 03/22/18 Tamsulosin HCl [Flomax] 0.4 mg PO DAILY@1730 03/22/18 Cholecalciferol (VIT D3) [Vitamin 1,000 unit PO 0800 04/22/18 D3] Oxycodone [Oxyir] 2.5 mg PO QHS 04/22/18 Mineral Oil/Petrolatum,White 1 applic TOPICAL 0600,2200 PRN 04/23/18 [Eucerin] Acetaminophen [Tylenol Tablet] 650 mg PO Q8H PRN 06/17/18 Potassium Chloride [K-Dur] 20 meq PO BID 06/17/18 Rosuvastatin Calcium [Crestor] 5 mg PO QHS 06/17/18 Finasteride [Proscar] 5 mg PO 0800 06/24/18 Prednisone 5 mg PO 0800 06/24/18 Rivaroxaban [Xarelto] 20 mg PO QHS 07/15/18 Surgical History: Surgical History (Last Reviewed 07/15/18 @ 17:12 by Harrison Rendon MD) S/P TURP (status post transurethral resection of prostate) (Resolved) Z90.79 pacemaker implantation (Chronic) generator change History of inguinal hernia repair (Resolved) Z98.890, Z87.19 History of hemorrhoidectomy (Resolved) Z98.890 History of prostatectomy (Resolved) Z98.890, Z90.79 right ochiectomy (Resolved) History of appendectomy (Resolved) Z98.890, Z90.49 S/P PTCA (percutaneous transluminal coronary angioplasty) (Chronic) Z98.61 History of orchiectomy, unilateral (Chronic) Z90.79 Surgical History: angioplasty, appendectomy, cholecystectomy, herniorrhaphy, pacemaker implantation, TURP, - - Prostatectomy. orchiectomy. Psychiatric History: Anxiety, Depression Lives: Spouse/ Significant Other Smoking Status: Current every day smoker Alcohol: None Drugs: None - *Family History Paternal Family History: Family History (Last Reviewed 07/15/18 @ 18:01 by Olvin Chopra DO) Father CAD (coronary artery disease) Mother Breast cancer Arthritis CAD (coronary artery disease) Hypertension Sister CVA (cerebral vascular accident) Diabetes Hypertension Son CAD (coronary artery disease) Hypertension History Items: Heart Disease, Renal Disease Sibling Family History: Family History (Last Reviewed 07/15/18 @ 18:01 by Olvin Chopra DO) Father CAD (coronary artery disease) Mother Breast cancer Arthritis CAD (coronary artery disease) Hypertension Sister CVA (cerebral vascular accident) Diabetes Hypertension Son CAD (coronary artery disease) Hypertension History Items: Diabetes, Heart Disease Offspring Family History: Family History (Last Reviewed 07/15/18 @ 18:01 by Olvin Chopra DO) Father CAD (coronary artery disease) Mother Breast cancer Arthritis CAD (coronary artery disease) Hypertension Sister CVA (cerebral vascular accident) Diabetes Hypertension Son CAD (coronary artery disease) Hypertension History Items: Heart Disease Maternal Family History: Family History (Last Reviewed 07/15/18 @ 18:01 by Olvin Chpora DO) Father CAD (coronary artery disease) Mother Breast cancer Arthritis CAD (coronary artery disease) Hypertension Sister CVA (cerebral vascular accident) Diabetes Hypertension Son CAD (coronary artery disease) Hypertension History Items: Cancer, Heart Disease Review of Systems Unable to obtain accurate/complete ROS d/t: Due to degree of somnolence Patient Problems: Active and Suspected Problems (Last Reviewed 07/15/18 @ 18:01 by Olvin Chopra DO) Renal colic on left side (Acute) Ureterolithiasis (Acute) RICHI (acute kidney injury) (Acute) Severe sepsis (Acute) Severe sepsis (Acute) Pyelonephritis (Acute) Objective: The patient's most recent lab work, culture data and imaging studies have all been personally reviewed. Surface echocardiogram from January 2018 revealed segmental LV dysfunction with preserved ejection fraction. Pulmonary artery systolic pressure was estimated to be 54 mmHg. - Physical Exam General: Confused, - - Will open eyes and transiently interact to verbal stimulation. BiPAP is currently in place. Quite ill in appearance HEENT: Atraumatic, PERRLA, Normocephalic Oral: Dry Mucosa Neck: Supple, No Nodes, Trachea Midline Lungs: Diminished, Rales, Short of Breath, Tachypneic Cardiovascular: Normal S1, Normal S2, No murmurs, Tachycardic Abdomen: Bowel Sounds Present, Soft, Non Tender Extremities: No clubbing, No cyanosis, No edema Skin: No breakdown Musculoskeletal: No Muscle Wasting Lymphatic: No Cervical, Supraclavicular, or Inguinal Adenopathy Neurological: - - No focal deficits. Moves extremities spontaneously. Psych/Mental Status: Flat Affect Vital Signs Temp Pulse Resp BP Pulse Ox 37.5 C H 99 22 H 72/51 L 97 07/16/18 05:33 07/16/18 06:45 07/16/18 06:45 07/16/18 06:45 07/16/18 06:45 Oxygen Flow Rate (L/min) 2 Oxygen Delivery Method Bi-pap Weight: 163 lb 12.8 oz Body Mass Index (BMI) 23.5 Finger Stick Blood Glucose 118 Intake and Output for Last 24 Hours 07/14/18 07/15/18 07/16/18 23:59 23:59 23:59 Intake Total 1065 / 1065 563 / 563 Balance 1065 / 1065 563 / 563 Microbiology Past 72 Hours 07/15/18 15:05 Blood Culture - Preliminary Blood Culture (Wb) - Right Hand 07/15/18 14:58 Blood Culture - Preliminary Blood Culture (Wb) - Anticubital Left Laboratory Tests Past 24 Hrs 07/15/18 07/15/18 07/15/18 14:58 14:58 14:58 WBC 13.5 H RBC 4.52 L Hgb 11.6 L Hct 38.6 L MCV 85.4 MCH 25.7 L MCHC 30.1 L RDW 21.4 H RDW Differential 67.0 H Plt Count 108 L MPV TNP Immature Gran % (Auto) 0.100 Neut % (Auto) 93.3 H Lymph % (Auto) 2.8 L [place] % (Auto) 3.4 Eos % (Auto) 0.1 Baso % (Auto) 0.3 Absolute Neuts (auto) 12.6 H Absolute Lymphs (auto) 0.37 L Total Counted Not Reportable Differential Comment SCANNED Plt Morphology Comment LARGE Anisocytosis 1+ PT 19.9 H INR 1.7 APTT 40.8 H Specimen Type Sample Site pH Bicarbonate Actual POC Total CO2 Base Excess O2 Saturation ABG pCO2 ABG pO2 O2 Delivery Device Liter Flow Blood Gas Notified Whom Sodium 140 Potassium 4.0 Chloride 109 H Carbon Dioxide 26.0 Anion Gap 5 BUN 22 H Creatinine 2.12 H Estim Creat Clear Calc 29.17 Est GFR (MDRD) Af Amer 39 L Est GFR (MDRD) Non-Af 32 L BUN/Creatinine Ratio 10.4 Glucose 92 Lactic Acid Calcium 7.8 L Total Bilirubin 0.80 AST 21 ALT 26 Alkaline Phosphatase 92 Troponin I 0.023 Total Protein 5.1 L Albumin 2.5 L Globulin 2.6 Albumin/Globulin Ratio 1.0 Urine Color Urine Clarity Urine pH Ur Specific [place] Urine Protein Urine Glucose (UA) Urine Ketones Urine Occult Blood Urine Nitrite Urine Bilirubin Urine Urobilinogen Ur Leukocyte Esterase Urine RBC Urine WBC Ur Squamous Epith Cells Urine Bacteria Urine Mucus Blood Type Antibody Screen 07/15/18 07/15/18 07/15/18 14:58 14:58 16:11 WBC RBC Hgb Hct MCV MCH MCHC RDW RDW Differential Plt Count MPV Immature Gran % (Auto) Neut % (Auto) Lymph % (Auto) [place] % (Auto) Eos % (Auto) Baso % (Auto) Absolute Neuts (auto) Absolute Lymphs (auto) Total Counted Differential Comment Plt Morphology Comment Anisocytosis PT INR APTT Specimen Type Sample Site pH Bicarbonate Actual POC Total CO2 Base Excess O2 Saturation ABG pCO2 ABG pO2 O2 Delivery Device Liter Flow Blood Gas Notified Whom Sodium Potassium Chloride Carbon Dioxide Anion Gap BUN Creatinine Estim Creat Clear Calc Est GFR (MDRD) Af Amer Est GFR (MDRD) Non-Af BUN/Creatinine Ratio Glucose Lactic Acid 3.9 H Calcium Total Bilirubin AST ALT Alkaline Phosphatase Troponin I Total Protein Albumin Globulin Albumin/Globulin Ratio Urine Color Yellow Urine Clarity Cloudy Urine pH 5.0 Ur Specific [place] 1.015 Urine Protein 30 H Urine Glucose (UA) Normal Urine Ketones 5 H Urine Occult Blood 250 H Urine Nitrite Positive H Urine Bilirubin 1 H Urine Urobilinogen 1 H Ur Leukocyte Esterase 500 H Urine RBC 0-5 SEEN Urine WBC 50-100 SEEN Ur Squamous Epith Cells 0 SEEN Urine Bacteria 1+ Urine Mucus 0 SEEN Blood Type B POSITIVE Antibody Screen NEGATIVE 07/15/18 07/16/18 19:28 04:21 WBC RBC Hgb Hct MCV MCH MCHC RDW RDW Differential Plt Count MPV Immature Gran % (Auto) Neut % (Auto) Lymph % (Auto) [place] % (Auto) Eos % (Auto) Baso % (Auto) Absolute Neuts (auto) Absolute Lymphs (auto) Total Counted Differential Comment Plt Morphology Comment Anisocytosis PT INR APTT Specimen Type ART Sample Site R Brachial pH 7.28 L Bicarbonate Actual 14.4 L POC Total CO2 15 Base Excess -12 L O2 Saturation 89 L ABG pCO2 30.7 L ABG pO2 63 L O2 Delivery Device NRB Mask Liter Flow 15.0 Blood Gas Notified Whom HOSP Sodium Potassium Chloride Carbon Dioxide Anion Gap BUN Creatinine Estim Creat Clear Calc Est GFR (MDRD) Af Amer Est GFR (MDRD) Non-Af BUN/Creatinine Ratio Glucose Lactic Acid 3.7 H Calcium Total Bilirubin AST ALT Alkaline Phosphatase Troponin I Total Protein Albumin Globulin Albumin/Globulin Ratio Urine Color Urine Clarity Urine pH Ur Specific [place] Urine Protein Urine Glucose (UA) Urine Ketones Urine Occult Blood Urine Nitrite Urine Bilirubin Urine Urobilinogen Ur Leukocyte Esterase Urine RBC Urine WBC Ur Squamous Epith Cells Urine Bacteria Urine Mucus Blood Type Antibody Screen Clinical Impression(s) from Imaging Studies Abdomen/Pelvis CTA 07/15/18 14:34 IMPRESSION: 4 mm track is at the left ureter vesicle junction causing left-sided hydronephrosis and hydroureter with left perinephric stranding. The remainder of the examination is unchanged. Electronically Signed: Stef Carlton, at 15:18 EDT , Service support , Chest X-Ray 07/15/18 14:46 IMPRESSION: Increased markings at the left lung base with areas of confluence and blunting of the left cardiac phrenic angle. Early infiltrate and/or atelectasis should be excluded. Electronically Signed: Stef Mellyaleshamya, at 15:02 EDT , Service support , Chest X-Ray 07/16/18 03:50 IMPRESSION: Right basilar airspace consolidation, atelectasis and small pleural effusion possibly representing pneumonia. Electronically Signed: Bree Agarwal MD at 4:58 EDT , Service support , Assessment/Plan Active and Suspected Problems (Last Reviewed 07/15/18 @ 18:01 by Olvin Chopra DO) Renal colic on left side (Acute) Ureterolithiasis (Acute) RICHI (acute kidney injury) (Acute) Severe sepsis (Acute) Severe sepsis (Acute) Pyelonephritis (Acute) RECOMMENDATIONS: 1. Place central venous catheter and initiate Levophed to maintain a mean alcides rial pressure at or above 65 mmHg. 2. Broaden antimicrobial coverage to include meropenem and vancomycin. 3. Obtain repeat blood cultures. 4. Check respiratory viral panel along with strep and urine Legionella antigens. 5. Obtain and send sputum for culture. 6. Continue BiPAP therapy / as tolerated. 7. Withhold all sedating medications. 8. Check serum lactate level. 9. Check MRSA screen. IMPRESSIONS: 1. Gram-negative septic shock secondary to pyelonephritis with superimposed pulmonary infectious process The patient has what appears to be gram-negative pyelonephritis and bacteremia with radiographic evidence of a right lower lobe pneumonia. He has received adequate volume resuscitation. Given the patient's hemodynamic instability, will place central venous catheter. The patient will be started on Levophed to maintain a mean arterial pressure at or above 65 mmHg. Will obtain repeat blood cultures. Broaden antibiotics to include meropenem and Levophed. Check respiratory viral panel along with strep and urine Legionella antigens. Obtain sputum for culture, if the patient develops a cough. Check serum lactate level. Urology has been consulted. Consideration will be given to pursue surgical intervention, if the patient stabilizes over the next 24 hours. 2. Acute hypoxemic respiratory failure/baseline COPD with exacerbation Likely secondary to underlying pulmonary infectious process. Continue current supportive measures with broad-spectrum antimicrobial coverage. Start scheduled bronchodilators as well. Wean supplemental oxygen to maintain saturations at or above 90%. Continue BiPAP as needed. 3. Acute kidney injury/non-anion gap metabolic acidosis Likely prerenal in etiology with a component of ischemic ATN secondary to #1. We will plan to continue current supportive measures with vasopressor support in an attempt to maintain a mean arterial pressure at or above 65 mmHg. We will continue to monitor urine output accordingly. No current indication for renal replacement therapy. 4. Obstructive sleep apnea Continue noninvasive positive pressure ventilation as ordered. 5. Paroxysmal atrial fibrillation on Xarelto The patient Xarelto is currently on hold due to the potential need for surgical intervention. 6. CODE STATUS Both Dr. Rendon and Rao spoke with the patient's family this morning. He does have an active DNR CCA on file. However, per our discussion with the patient's family, they are agreeable to the patient being intubated if absolutely necessary. Therefore, the patient's CODE STATUS will be updated to DNR CCA with intubation. TIME: 90 minutes of critical care time, inclusive of procedures, was spent addressing the patient's gram-negative septic shock, pyelonephritis, pneumonia, acute hypoxemic respiratory failure, acute kidney injury, COPD, obstructive sleep apnea, paroxysmal atrial fibrillation, review of all data and collaboration with the care team. ([id number]) Code Visit Procedures: 92866 Critial Care Addl 30 Min 9xxxx: [id number] Critical care first hour
--- NOTE | 2018-07-16 07:38 | PN_ITS ---
Patient Problems: Active and Suspected Problems (Last Reviewed 07/15/18 @ 18:01 by Olvin Chopra DO) Renal colic on left side (Acute) Ureterolithiasis (Acute) RICHI (acute kidney injury) (Acute) Severe sepsis (Acute) Severe sepsis (Acute) Pyelonephritis (Acute) Subjective: Meropenem day# 1 The patient is a 77-year-old male with a multitude of medical problems including accessible atrial fibrillation, BPH, PVD, hyperlipidemia, Alzheimer's disease, renal failure, chronic diastolic heart failure, COPD, history of ischemic CVA, p ulmonary hypertension, tobacco dependence, pacemaker implantation, central sleep apnea, autonomic dysfunction, coronary artery disease, chronic anticoagulation with Xarelto and nephrolithiasis who presented to the emergency department at [facility] on 07/15/2017 complaining of generalized weakness, low back pain left-sided abdominal pain and shaking. Vital signs of presentation to the emergency department were temp 98.9, pulse rate 77, blood pressure 92/61, respiratory rate 20 and he was 96% saturated on room air. White blood cell count was elevated at 13.5 and neutrophils were 93,000. Hemoglobin was low at 11.6 (within his baseline) with an MCV of 85.4 and an RDW of 21.4. Platelets were low at 108,000 and have been intermittently low in the past. CMP showed a BUN of 22 and a creatinine of 2.12. Creatinine on 06/24/2018 was 1.01. Lactic acid was elevated at 3.9. LFTs were unremarkable. UA revealed 50-100 WBCs per high-power field and was nitrite positive. A CT scan of the abdomen and pelvis shows a 4 mm calculus at the left ureterovesical junction with left hydronephrosis and left hydroureter. There was left perinephric stranding. Chest x-ray to admission showed atelectasis in the left base. Follow-up chest x-ray showed new right basilar pneumonia. He was admitted to the intensive care unit and Dr. Ackerman was consulted. He is scheduled for cystoscopy today. T-max is 102.5 ?F. Temp today is 97.5. Current vital signs are heart rate 104, blood pressure 74/55, respiratory rate 30 and he is 93% saturated on BiPAP with a 70% FiO2. ABG obtained on a nonrebreather showed pH of 7.28, PCO2 of 30.7 and a PO2 of 63. Lab today shows an increasing white blood cell count and is currently 17.1, up from 13.5 at admission. Hemoglobin is stable at 11.6 and platelets are dropping and are currently 88,000. He has 11 metamyelocytes and 1 myelocyte. Sodium is 147 today with a chloride of 116. CO2 is decreasing and is 18, down from 26 at admission. BUN is 33 and the creatinine has increased from 2.12-3.01. Lactic acid has increased to 6.5. AST is now 108 up from 21 at admission. The alkaline phosphatase is 136, up from 92 at admission. Potassium is 4.1 today. 2 of 2 blood cultures are positive for gram-negative rods less than 24 hours after admission. Chest x-ray today shows increased atelectasis versus infiltrate in the left base and a new infiltrate in the right base. Telemetry shortly after admission showed a run of nonsustained ventricular tachycardia. Central line inserted today by Dr. Au and the patient has been started on n orepinephrine for blood pressure support. Current blood pressure is 89 systolic. January 2018 Interpretation Summary Normal LV size. Left ventricular systolic function is normal. Segmental dysfunction with preserved ejection fraction (see wall motion). No evidence for diastolic dysfunction. Pulmonary artery systolic pressure is 54 mmHg. Moderate pulmonary hypertension. Compared to prior study, there is no significant change. Stress test in February 2017 was negative for ischemia and the gated cardiac study reported an left ventricular ejection fraction of 50%. He is on BIPAP and is obtunded....can not answer any of my questions and mostly says I don't know. He did say he fell recently and he is having pain when they turn him - Physical Exam General: Well developed, Confused, Lethargic HEENT: Atraumatic, Normocephalic Neck: Supple, No JVD, No Nodes, No Nuchal Rigidity, Trachea Midline, - - he is on BIPAP Lungs: No rhonchi, No wheeze, Diminished, Rales - in the bases Cardiovascular: Regular Rhythm, Normal S1, Normal S2, No murmurs, Tachycardic, - - telemetry shows PVC's and a run of NSVT at arrival to ICU Abdomen: Soft, Hypoactive Bowel Sounds, Distended - mild, - - no guarding with palpation Extremities: No clubbing, No cyanosis, No edema Skin: No rashes, No breakdown, - - he has bruising of the R arm and some scratches on the legs Musculoskeletal: Arthritic Changes, Muscle Wasting Neurological: Cranial nerves II-XII grossly intact, Neuro grossly intact, - - No focal neurologic deficits Psych/Mental Status: - - Cannot evaluate, patient is obtunded and unable to answer questions Vital Signs Temp Pulse Resp BP Pulse Ox 97.5 F L 105 H 30 H 74/55 L 93 07/16/18 07:00 07/16/18 07:00 07/16/18 07:00 07/16/18 07:00 07/16/18 07:00 Oxygen Flow Rate (L/min) 2 Oxygen Delivery Method Bi-pap Weight: 163 lb 12.8 oz Body Mass Index (BMI) 23.5 Finger Stick Blood Glucose 118 Intake and Output for Last 24 Hours 07/14/18 07/15/18 07/16/18 23:59 23:59 23:59 Intake Total 1065 / 1065 563 / 563 Balance 1065 / 1065 563 / 563 Microbiology Past 72 Hours 07/15/18 15:05 Blood Culture - Preliminary Blood Culture (Wb) - Right Hand 07/15/18 14:58 Blood Culture - Preliminary Blood Culture (Wb) - Anticubital Left Laboratory Tests Past 24 Hrs 07/15/18 07/15/18 07/15/18 14:58 14:58 14:58 WBC 13.5 H RBC 4.52 L Hgb 11.6 L Hct 38.6 L MCV 85.4 MCH 25.7 L MCHC 30.1 L RDW 21.4 H RDW Differential 67.0 H Plt Count 108 L MPV TNP Immature Gran % (Auto) 0.100 Neut % (Auto) 93.3 H Lymph % (Auto) 2.8 L Castro % (Auto) 3.4 Eos % (Auto) 0.1 Baso % (Auto) 0.3 Absolute Neuts (auto) 12.6 H Absolute Lymphs (auto) 0.37 L Total Counted Not Reportable Differential Comment SCANNED Plt Morphology Comment LARGE Anisocytosis 1+ PT 19.9 H INR 1.7 APTT 40.8 H Specimen Type Sample Site pH Bicarbonate Actual POC Total CO2 Base Excess O2 Saturation ABG pCO2 ABG pO2 O2 Delivery Device Liter Flow Blood Gas Notified Whom Sodium 140 Potassium 4.0 Chloride 109 H Carbon Dioxide 26.0 Anion Gap 5 BUN 22 H Creatinine 2.12 H Estim Creat Clear Calc 29.17 Est GFR (MDRD) Af Amer 39 L Est GFR (MDRD) Non-Af 32 L BUN/Creatinine Ratio 10.4 Glucose 92 Lactic Acid Calcium 7.8 L Total Bilirubin 0.80 AST 21 ALT 26 Alkaline Phosphatase 92 Troponin I 0.023 Total Protein 5.1 L Albumin 2.5 L Globulin 2.6 Albumin/Globulin Ratio 1.0 Urine Color Urine Clarity Urine pH Ur Specific [place] Urine Protein Urine Glucose (UA) Urine Ketones Urine Occult Blood Urine Nitrite Urine Bilirubin Urine Urobilinogen Ur Leukocyte Esterase Urine RBC Urine WBC Ur Squamous Epith Cells Urine Bacteria Urine Mucus Blood Type Antibody Screen 07/15/18 07/15/18 07/15/18 14:58 14:58 16:11 WBC RBC Hgb Hct MCV MCH MCHC RDW RDW Differential Plt Count MPV Immature Gran % (Auto) Neut % (Auto) Lymph % (Auto) Castro % (Auto) Eos % (Auto) Baso % (Auto) Absolute Neuts (auto) Absolute Lymphs (auto) Total Counted Differential Comment Plt Morphology Comment Anisocytosis PT INR APTT Specimen Type Sample Site pH Bicarbonate Actual POC Total CO2 Base Excess O2 Saturation ABG pCO2 ABG pO2 O2 Delivery Device Liter Flow Blood Gas Notified Whom Sodium Potassium Chloride Carbon Dioxide Anion Gap BUN Creatinine Estim Creat Clear Calc Est GFR (MDRD) Af Amer Est GFR (MDRD) Non-Af BUN/Creatinine Ratio Glucose Lactic Acid 3.9 H Calcium Total Bilirubin AST ALT Alkaline Phosphatase Troponin I Total Protein Albumin Globulin Albumin/Globulin Ratio Urine Color Yellow Urine Clarity Cloudy Urine pH 5.0 Ur Specific [place] 1.015 Urine Protein 30 H Urine Glucose (UA) Normal Urine Ketones 5 H Urine Occult Blood 250 H Urine Nitrite Positive H Urine Bilirubin 1 H Urine Urobilinogen 1 H Ur Leukocyte Esterase 500 H Urine RBC 0-5 SEEN Urine WBC 50-100 SEEN Ur Squamous Epith Cells 0 SEEN Urine Bacteria 1+ Urine Mucus 0 SEEN Blood Type B POSITIVE Antibody Screen NEGATIVE 07/15/18 07/16/18 07/16/18 19:28 04:21 07:15 WBC Pending RBC Pending Hgb Pending Hct Pending MCV Pending MCH Pending MCHC Pending RDW Pending RDW Differential Pending Plt Count Pending MPV Immature Gran % (Auto) Neut % (Auto) Pending Lymph % (Auto) Castro % (Auto) Eos % (Auto) Baso % (Auto) Absolute Neuts (auto) Pending Absolute Lymphs (auto) Total Counted Pending Differential Comment Plt Morphology Comment Anisocytosis PT INR APTT Specimen Type ART Sample Site R Brachial pH 7.28 L Bicarbonate Actual 14.4 L POC Total CO2 15 Base Excess -12 L O2 Saturation 89 L ABG pCO2 30.7 L ABG pO2 63 L O2 Delivery Device NRB Mask Liter Flow 15.0 Blood Gas Notified Whom HOSP MD Sodium Potassium Chloride Carbon Dioxide Anion Gap BUN Creatinine Estim Creat Clear Calc Est GFR (MDRD) Af Amer Est GFR (MDRD) Non-Af BUN/Creatinine Ratio Glucose Lactic Acid 3.7 H Calcium Total Bilirubin AST ALT Alkaline Phosphatase Troponin I Total Protein Albumin Globulin Albumin/Globulin Ratio Urine Color Urine Clarity Urine pH Ur Specific [place] Urine Protein Urine Glucose (UA) Urine Ketones Urine Occult Blood Urine Nitrite Urine Bilirubin Urine Urobilinogen Ur Leukocyte Esterase Urine RBC Urine WBC Ur Squamous Epith Cells Urine Bacteria Urine Mucus Blood Type Antibody Screen 07/16/18 07/16/18 07:15 07:15 WBC RBC Hgb Hct MCV MCH MCHC RDW RDW Differential Plt Count MPV Immature Gran % (Auto) Neut % (Auto) Lymph % (Auto) Castro % (Auto) Eos % (Auto) Baso % (Auto) Absolute Neuts (auto) Absolute Lymphs (auto) Total Counted Differential Comment Plt Morphology Comment Anisocytosis PT INR APTT Specimen Type Sample Site pH Bicarbonate Actual POC Total CO2 Base Excess O2 Saturation ABG pCO2 ABG pO2 O2 Delivery Device Liter Flow Blood Gas Notified Whom Sodium Pending Potassium Pending Chloride Pending Carbon Dioxide Pending Anion Gap Pending BUN Pending Creatinine Pending Estim Creat Clear Calc Est GFR (MDRD) Af Amer Pending Est GFR (MDRD) Non-Af Pending BUN/Creatinine Ratio Pending Glucose Pending Lactic Acid Pending Calcium Pending Total Bilirubin Pending AST Pending ALT Pending Alkaline Phosphatase Pending Troponin I Total Protein Pending Albumin Pending Globulin Albumin/Globulin Ratio Urine Color Urine Clarity Urine pH Ur Specific [place] Urine Protein Urine Glucose (UA) Urine Ketones Urine Occult Blood Urine Nitrite Urine Bilirubin Urine Urobilinogen Ur Leukocyte Esterase Urine RBC Urine WBC Ur Squamous Epith Cells Urine Bacteria Urine Mucus Blood Type Antibody Screen Medical Necessity - Tobacco Use Smoking Status: Current every day smoker Assessment/Plan All Active Problems (Last Reviewed 07/15/18 @ 18:01 by Olvin Chopra DO) Renal colic on left side (Acute) Ureterolithiasis (Acute) RICHI (acute kidney injury) (Acute) Severe sepsis (Acute) Severe sepsis (Acute) Pyelonephritis (Acute) S/P TURP (status post transurethral resection of prostate) (Resolved) History of inguinal hernia repair (Resolved) History of hemorrhoidectomy (Resolved) History of prostatectomy (Resolved) right ochiectomy (Resolved) History of appendectomy (Resolved) Acute respiratory failure with hypoxia (Resolved) Stool guaiac positive (Resolved) Day #1 vancomycin and Merrem Impressions 1. Septic shock secondary to urinary tract infection/pyelonephritis with 2 of 2 blood cultures positive for gram-negative rods 2. Left hydronephrosis and hydroureter secondary to nephrolithiasis with calculus at the ureteropelvic junction on the left 3. Acute renal failure 4. Acute respiratory failure with hypoxia 5. Left pyelonephritis 6. CAD with hx of PTCA 7. BPH 8. Thrombocytopenia-likely secondary to infection 9. Anemia-chronic and stable 10. Hyponatremia 11. Abnormal LFTs 12. Pneumonia-likely secondary to bacteremic spread 13. Paroxysmal atrial fibrillation 14. Chronic anticoagulation with Xarelto 15. Alzheimer's disease 16. History of diastolic congestive heart failure 17. COPD 18. Pulmonary hypertension 19. History of pacemaker implantation 20. Nephrolithiasis 21. Dysautonomia 22. Depression-on Cymbalta 60 twice daily 23. Chronic immunosuppression with prednisone Continue Vanco and Merrem Continue norepinephrine to maintain MAP at 65 Hold potassium supplementation because the creatinine is increasing and recheck a BMP later today Transition to IV pantoprazole since he is n.p.o. Check a magnesium and phosphorus now DC prednisone and start Solu-Cortef 50 mg every 8 hours No anticoagulation Recheck lab in the a.m. If patient can be stabilized today will go to surgery with Dr. Rendon in the a.m. for cystoscopy and left ureteral stent Code Visit Inpatient E&M: [id number] [facility] L3
[2018-07-16 07:39] LABS: Hematocrit 38.7 % (40-54); Hemoglobin 11.6 g/dl (13.0-16.5); Mean Corpuscular Hgb 25.7 pg (27.0-32.0); Mean Corpuscular Volume 85.8 fL (80-94); Platelet Count 88 K/mm3 (150-450); RBC Distribution Width CV 22.5 % (11.6-14.6); Red Blood Count 4.51 M/mm3 (4.6-6.2); White Blood Count 17.1 K/mm3 (4.4-11.0)
[2018-07-16 07:50] LABS: Lactic Acid 6.5 mmol/L (0.4-2.0)
[2018-07-16 07:59] LABS: ALB/GLOB Ratio 0.8 RATIO (0.9-2.4); AST(SGOT) 108 U/L (15-37); Alanine Aminotransfer ALT/SGPT 43 U/L (16-61); Albumin, Serum 2.3 g/dL (3.2-5.0); Alkaline Phosphatase 136 U/L (45-117); Anion Gap 13 (5-15); BUN 33 mg/dL (7-18); Calcium,Total 7.6 mg/dL (8.5-10.1); Chloride 116 mmol/L (98-107); Creatinine, Serum 3.01 mg/dL (0.70-1.30); EST Glomerular Filtration Rate 21 mL/min (>60); Est Glom Filt Rate - Afr Amer 26 mL/min (>60); Estimated Creatinine Clearance 20.55 ml/min; Globulin 2.8 g/dL (2.2-4.2); Glucose 69 mg/dL (74-106); Potassium 4.1 mmol/L (3.5-5.1); Protein, Total 5.1 g/dL (6.4-8.2); Sodium Level 147 mmol/L (136-145)
[2018-07-16 08:03] LABS: Differential Indicated MANUAL DIFF; POSITIVE COUNT NO; POSITIVE DIFFERENTIAL YES; POSITIVE MORPHOLOGY YES
[2018-07-16 08:06] LABS: Lymphocyte 4 % (19-41); Metamyelocyte 11 % (0-1); Monocyte 7 % (0-10); Myelocyte 1 (0-0); Neutrophil-Band 4 % (0-5); Neutrophil-Segmented 73 % (47-70); Total Cells Counted 100 (MANUAL DIFF)
[2018-07-16 08:07] LABS: Dohle Bodies RARE; Platelet Estimate MOD DEC (ADEQ)
[2018-07-16 08:08] LABS: Absolute Lymphocyte Count 0.69 X10^3/ul (0.83-4.51); Absolute Neutrophil Count 13.2 X10^3/uL (2.0-7.7); Absolute Nucleated RBC Count 0.09 10^3/uL (0-5); NRBC Flagged by Analyzer 0.5 % (0-5)
--- NOTE | 2018-07-16 08:41 | RAD_ITS ---
STUDY: X-RAY CHEST REASON FOR EXAM: Male, 77 years old. Line placement TECHNIQUE: Single AP portable view of the chest. COMPARISON: July 16, 2018 FINDINGS: Placement of right IJ central venous catheter with tip in the mid SVC. No pneumothorax Mild basilar airspace disease on the right. Lungs appear otherwise clear. There is no demonstrated pleural abnormality. There is borderline cardiomegaly. Normal mediastinum and elis. Normal visualized pulmonary arteries. Normal visualized aortic arch and descending thoracic aorta. There are diffuse degenerative changes of the visualized thoracic spine. Normal visualized ribs, clavicles, and shoulders. There is no demonstrated abnormality of the visualized soft tissue structures of the upper abdomen. RAD/CXR for Line Placement IMPRESSION: Right IJ central venous catheter as above. No pneumothorax. Small amount of right lower lobe airspace disease. Remainder is within normal limits Electronically Signed: Tyler Sharp DO at 9:22 EDT Tel , Service support ,
[2018-07-16] MEDS: Lactated Ringers 1,000 ML 999 ML IV (09:05)
--- NOTE | 2018-07-16 09:12 | PCM.CONS.B ---
- Consult Date of Consult: 07/16/18 77-year-old male presented to the hospital with a stone obstructing his kidney also with probably pneumonia overnight became floridly septic blood pressures dropped, lactic acid increased overnight his creatinine is also increased of the 3. He is transferred to the ICU for further care he is currently on BiPAP to keep his oxygenation's up and he is on fluid resuscitation had a central line placed and is on levo fed. We spoke spoke to the family today and they are willing to have every measures taken to get him through the septic event including intubation and understand intubation would only be short-term if he needs a stent or procedure. Currently this morning is a little better his blood pressures are 80s over 60s he is on levo fed urine output is low but steady. Did speak to the family that this is a very serious infection and he is extremely ill and its possible the outcomes could be negative we understand. For now we will see how he does next 24 hours if he stabilizes then I may place a stent.
--- NOTE | 2018-07-16 09:58 | CM.UR ---
Participated in interdisciplinary rounds. patient is currently on bipap. When patient is stable will go for stent placement. No family present at this time. Discharge plan TBD. Wilfrid Reece RN, [facility].
[2018-07-16 10:50] LABS: M R Staph aureus DNA By PCR Negative (Negative); Probe Check PASS; Specimen Processing Control PASS
--- NOTE | 2018-07-16 11:17 | PHA.PHARE_ITS ---
Consult Pharmacy has been consulted to manage selected antiobiotic: Vancomycin Type of Consult: New start Suspected Infection: Sepsis, Other Labs: Sodium 147 mmol/L (136-145) H 07/16/18 07:15 Potassium 4.1 mmol/L (3.5-5.1) 07/16/18 07:15 Chloride 116 mmol/L (98-107) H 07/16/18 07:15 Carbon Dioxide 18.0 mmol/L (21.0-32.0) L 07/16/18 07:15 Anion Gap 13 (5-15) 07/16/18 07:15 BUN 33 mg/dL (7-18) H 07/16/18 07:15 Creatinine 3.01 mg/dL (0.70-1.30) H 07/16/18 07:15 Est GFR (MDRD) Af Amer 26 mL/min (>60) L 07/16/18 07:15 Est GFR (MDRD) Non-Af 21 mL/min (>60) L 07/16/18 07:15 BUN/Creatinine Ratio 11.0 RATIO (10-20) 07/16/18 07:15 Glucose 69 mg/dL (74-106) L 07/16/18 07:15 Microbiology: Microbiology 07/16/18 08:15 Urine Catheter - Chambers Streptococcus pneumoniae Antigen (M - Final 07/16/18 08:15 Urine Catheter - Chambers Legionella Antigen - Final 07/15/18 15:05 Blood Culture (Wb) - Right Hand Blood Culture - Preliminary 07/15/18 14:58 Blood Culture (Wb) - Anticubital Left Blood Culture - Preliminary Weight used for dosin kg Estimated Creatinine Clearance: 20 ML/MIN Goal Trough: 15-20 mcg/mL Pharmacy Plan for Drug Dosing: Give initial dose of 1750mg IV x1, then recommend further dosing to be deter mined based on random levels since the patient's SCr is 3.01 mg/dl and CrCl is 20 ml/min. The patient's SCr had been 2.12 yesterday while the CrCl had been 29. Per protocol, the first random level will be taken with the 2nd AM labs which will be on 07/18/18, and dosing will be determined from there. Pharmacy Service will continue to monitor and adjust dosing as required. Follow-Up Labs: Trough Vancomycin - random level Labs to be done on [date and time ordered]: 07/18/18 05:55 with the AM labs
[2018-07-16 11:23] LABS: Reflex Lactate? Y
[2018-07-16] MEDS: Hydrocortisone Sod Succinate 100 MG/2 ML Vial IV (11:57)
[2018-07-16 11:58] LABS: Magnesium 1.5 mg/dL (1.6-2.6); Phosphorus 3.7 mg/dL (2.5-4.9)
--- NOTE | 2018-07-16 12:27 | CPS ---
UNABLE TO OBTAIN SPO2 AT THIS TIME.
[2018-07-16] MEDS: CHLORHEXIDINE GLUC 2% CLOTH 1 EACH TOWELETTE TOPICAL (12:55)
--- NOTE | 2018-07-16 13:30 | NURSING ---
Teaching of pt chronic medical conditions deferred until pt condition less critical
[2018-07-16 15:45] LABS: Hematocrit 39.6 % (40-54); Hemoglobin 11.8 g/dl (13.0-16.5)
[2018-07-16 15:56] LABS: Anion Gap 8 (5-15); BUN 39 mg/dL (7-18); BUN/Creat Ratio 12.9 RATIO (10-20); Calcium,Total 7.4 mg/dL (8.5-10.1); Chloride 118 mmol/L (98-107); Creatinine, Serum 3.02 mg/dL (0.70-1.30); EST Glomerular Filtration Rate 21 mL/min (>60); Est Glom Filt Rate - Afr Amer 26 mL/min (>60); Estimated Creatinine Clearance 20.48 ml/min; Glucose 90 mg/dL (74-106); Potassium 4.9 mmol/L (3.5-5.1); Sodium Level 144 mmol/L (136-145)
[2018-07-16] MEDS: Hydrocortisone Sod Succinate 100 MG/2 ML Vial 50 MG IV (22:02)
[2018-07-16] MEDS: Acetaminophen 650 MG Suppository RECTAL (22:07)
[2018-07-17] VITALS (45 sets, daily range): BP systolic 69–103; BP diastolic 42–77; PULSE 58–112; RESP 12–27; TEMP 36.9–37.7; O2SAT 92–100
[2018-07-17] MEDS: CHLORHEXIDINE GLUC 2% CLOTH 1 EACH TOWELETTE TOPICAL (04:58)
[2018-07-17] MEDS: Acetaminophen 650 MG Suppository RECTAL (04:58)
[2018-07-17] MEDS: Hydrocortisone Sod Succinate 100 MG/2 ML Vial 50 MG IV ×3 (04:58→22:33)
[2018-07-17 05:12] LABS: Hematocrit 36.4 % (40-54); Hemoglobin 11.3 g/dl (13.0-16.5); Mean Corpuscular Hgb 25.9 pg (27.0-32.0); Mean Corpuscular Volume 83.3 fL (80-94); Platelet Count 66 K/mm3 (150-450); RBC Distribution Width CV 22.8 % (11.6-14.6); RBC Distribution Width SD 69.9 fl (35.1-43.9); Red Blood Count 4.37 M/mm3 (4.6-6.2); White Blood Count 22.8 K/mm3 (4.4-11.0)
[2018-07-17 05:14] LABS: Differential Indicated MANUAL DIFF; International Normalized Ratio 1.4; POSITIVE COUNT YES; POSITIVE DIFFERENTIAL NO; POSITIVE MORPHOLOGY YES; Prothrombin Time (Protime)PT. 16.9 SECONDS (11.7-14.9)
[2018-07-17] MEDS: Ondansetron 4 MG/2 ML Vial IV (05:15)
[2018-07-17] MEDS: 0.9% NaCl Peripheral Flush Adult/Peds IV ×3 (05:16→16:21)
[2018-07-17 05:27] LABS: ALB/GLOB Ratio 0.6 RATIO (0.9-2.4); AST(SGOT) 255 U/L (15-37); Alanine Aminotransfer ALT/SGPT 91 U/L (16-61); Alkaline Phosphatase 99 U/L (45-117); Anion Gap 10 (5-15); BUN 54 mg/dL (7-18); BUN/Creat Ratio 17.9 RATIO (10-20); Chloride 119 mmol/L (98-107); Creatinine, Serum 3.02 mg/dL (0.70-1.30); EST Glomerular Filtration Rate 21 mL/min (>60); Est Glom Filt Rate - Afr Amer 26 mL/min (>60); Estimated Creatinine Clearance 20.48 ml/min; Globulin 3.2 g/dL (2.2-4.2); Glucose 104 mg/dL (74-106); Magnesium 1.6 mg/dL (1.6-2.6); Phosphorus 6.1 mg/dL (2.5-4.9); Potassium 5.3 mmol/L (3.5-5.1); Protein, Total 5.2 g/dL (6.4-8.2); Sodium Level 148 mmol/L (136-145)
[2018-07-17 06:01] LABS: Lymphocyte 2 % (19-41); Metamyelocyte 2 % (0-1); Monocyte 3 % (0-10); Neutrophil-Band 12 % (0-5); Neutrophil-Segmented 81 % (47-70); Total Cells Counted 100 (MANUAL DIFF)
[2018-07-17 06:02] LABS: Platelet Estimate MOD DEC (ADEQ); Platelet Morphology LARGE; Red Cell Morphology NORM C+C NORMAL (NORM C&C)
[2018-07-17 06:04] LABS: Absolute Lymphocyte Count 0.46 X10^3/ul (0.83-4.51); Absolute Neutrophil Count 21.2 X10^3/uL (2.0-7.7)
--- NOTE | 2018-07-17 06:14 | PCM.PN.INT ---
Subjective: The patient was seen and examined at the bedside this morning. Events from the last 24 hours have been reviewed. Although the patient is currently afebrile, he did spike a fever overnight with a T-max of 38.1 ?C. He is currently on BiPAP with a pressure support of 12/8 with 50% FiO2. He remains on Levophed at 5 mcg to maintain hemodynamic stability. He is confused this morning and quite restless. Objective: The patient's most recent lab work, culture data and imaging studies have all been personally reviewed. Both blood and urine cultures from July 15 were positive for gram-negative rods. Respiratory viral panel was negative. Strep and urine Legionella antigens were both negative. Repeat blood cultures are currently pending. Echocardiogram from 2018 revealed segmental LV dysfunction with an ejection fraction of 55%. Pulmonary artery systolic pressure was estimated to be 54 mmHg. General: Alert, Confused, - - Currently wearing BiPAP. HEENT: Atraumatic, PERRLA, Normocephalic Oral: Dry Mucosa Neck: Supple, No Nodes, Trachea Midline, - - Right IJ central venous catheter in place Lungs: Diminished, - - Basilar rales Cardiovascular: Regular rate, Regular Rhythm, Normal S1, Normal S2, No murmurs Abdomen: Bowel Sounds Present, Soft, Non Tender Extremities: No clubbing, No cyanosis, No edema Skin: - - No significant change from previous Musculoskeletal: No Tenderness to Palpation of Joints or Extremities Lymphatic: No Cervical, Supraclavicular, or Inguinal Adenopathy Neurological: - - No focal neurological deficits. Psych/Mental Status: Anxious, Restless Vital Signs Temp Pulse Resp BP Pulse Ox 37.2 C 82 22 H 89/66 L 92 07/17/18 04:00 07/17/18 04:45 07/17/18 04:45 07/17/18 04:00 07/17/18 04:45 Oxygen Flow Rate (L/min) 5 Oxygen Delivery Method Bi-pap Weight: 163 lb 12.855 oz Body Mass Index (BMI) 23.5 Finger Stick Blood Glucose 118 Intake and Output for Last 24 Hours 07/15/18 07/16/18 07/17/18 23:59 23:59 23:59 Intake Total 1065 / 1065 2623.1 / 2623.1 128.2 / 128.2 Output Total 245 / 245 150 / 150 Balance 1065 / 1065 2378.1 / 2378.1 -21.8 / -21.8 Labs (Last 48 Hours) 07/15/18 07/15/18 07/15/18 14:58 14:58 14:58 WBC 13.5 H RBC 4.52 L Hgb 11.6 L Hct 38.6 L MCV 85.4 MCH 25.7 L MCHC 30.1 L RDW 21.4 H RDW Differential 67.0 H Plt Count 108 L MPV TNP Immature Gran % (Auto) 0.100 Neut % (Auto) 93.3 H Lymph % (Auto) 2.8 L [place] % (Auto) 3.4 Eos % (Auto) 0.1 Baso % (Auto) 0.3 Absolute Neuts (auto) 12.6 H Absolute Lymphs (auto) 0.37 L Total Counted Not Reportable Neutrophils % (Manual) Band Neutrophils % Lymphocytes % (Manual) Monocytes % (Manual) Metamyelocytes % Myelocytes % Nucleated RBC % Differential Comment SCANNED Diff Path Review Dohle Bodies Platelet Estimate Plt Morphology Comment LARGE RBC Morphology Anisocytosis 1+ Absolute Retic PT 19.9 H INR 1.7 APTT 40.8 H Specimen Type Sample Site pH Bicarbonate Actual POC Total CO2 Base Excess O2 Saturation ABG pCO2 ABG pO2 O2 Delivery Device Liter Flow Blood Gas Notified Whom Sodium 140 Potassium 4.0 Chloride 109 H Carbon Dioxide 26.0 Anion Gap 5 BUN 22 H Creatinine 2.12 H Estim Creat Clear Calc 29.17 Est GFR (MDRD) Af Amer 39 L Est GFR (MDRD) Non-Af 32 L BUN/Creatinine Ratio 10.4 Glucose 92 Lactic Acid Calcium 7.8 L Phosphorus Magnesium Total Bilirubin 0.80 AST 21 ALT 26 Alkaline Phosphatase 92 Troponin I 0.023 B-Natriuretic Peptide Total Protein 5.1 L Albumin 2.5 L Globulin 2.6 Albumin/Globulin Ratio 1.0 Urine Color Urine Clarity Urine pH Ur Specific [place] Urine Protein Urine Glucose (UA) Urine Ketones Urine Occult Blood Urine Nitrite Urine Bilirubin Urine Urobilinogen Ur Leukocyte Esterase Urine RBC Urine WBC Ur Squamous Epith Cells Urine Bacteria Urine Mucus MRSA (PCR) Blood Type Antibody Screen 07/15/18 07/15/18 07/15/18 14:58 14:58 16:11 WBC RBC Hgb Hct MCV MCH MCHC RDW RDW Differential Plt Count MPV Immature Gran % (Auto) Neut % (Auto) Lymph % (Auto) [place] % (Auto) Eos % (Auto) Baso % (Auto) Absolute Neuts (auto) Absolute Lymphs (auto) Total Counted Neutrophils % (Manual) Band Neutrophils % Lymphocytes % (Manual) Monocytes % (Manual) Metamyelocytes % Myelocytes % Nucleated RBC % Differential Comment Diff Path Review Dohle Bodies Platelet Estimate Plt Morphology Comment RBC Morphology Anisocytosis Absolute Retic PT INR APTT Specimen Type Sample Site pH Bicarbonate Actual POC Total CO2 Base Excess O2 Saturation ABG pCO2 ABG pO2 O2 Delivery Device Liter Flow Blood Gas Notified Whom Sodium Potassium Chloride Carbon Dioxide Anion Gap BUN Creatinine Estim Creat Clear Calc Est GFR (MDRD) Af Amer Est GFR (MDRD) Non-Af BUN/Creatinine Ratio Glucose Lactic Acid 3.9 H Calcium Phosphorus Magnesium Total Bilirubin AST ALT Alkaline Phosphatase Troponin I B-Natriuretic Peptide Total Protein Albumin Globulin Albumin/Globulin Ratio Urine Color Yellow Urine Clarity Cloudy Urine pH 5.0 Ur Specific [place] 1.015 Urine Protein 30 H Urine Glucose (UA) Normal Urine Ketones 5 H Urine Occult Blood 250 H Urine Nitrite Positive H Urine Bilirubin 1 H Urine Urobilinogen 1 H Ur Leukocyte Esterase 500 H Urine RBC 0-5 SEEN Urine WBC 50-100 SEEN Ur Squamous Epith Cells 0 SEEN Urine Bacteria 1+ Urine Mucus 0 SEEN MRSA (PCR) Blood Type B POSITIVE Antibody Screen NEGATIVE 07/15/18 07/16/18 07/16/18 19:28 04:21 07:15 WBC 17.1 H RBC 4.51 L Hgb 11.6 L Hct 38.7 L MCV 85.8 MCH 25.7 L MCHC 30.0 L RDW 22.5 H RDW Differential 71.0 H Plt Count 88 L MPV TNP Immature Gran % (Auto) Neut % (Auto) Not Reportable Lymph % (Auto) [place] % (Auto) Eos % (Auto) Baso % (Auto) Absolute Neuts (auto) 13.2 H Absolute Lymphs (auto) 0.69 L Total Counted 100 Neutrophils % (Manual) 73 H Band Neutrophils % 4 Lymphocytes % (Manual) 4 L Monocytes % (Manual) 7 Metamyelocytes % 11 H Myelocytes % 1 H Nucleated RBC % 0.5 Differential Comment Diff Path Review May foll Dohle Bodies RARE Platelet Estimate MOD DEC Plt Morphology Comment RBC Morphology Anisocytosis Absolute Retic 0.09 PT INR APTT Specimen Type ART Sample Site R Brachial pH 7.28 L Bicarbonate Actual 14.4 L POC Total CO2 15 Base Excess -12 L O2 Saturation 89 L ABG pCO2 30.7 L ABG pO2 63 L O2 Delivery Device NRB Mask Liter Flow 15.0 Blood Gas Notified Whom SIOMARA HANEY Sodium Potassium Chloride Carbon Dioxide Anion Gap BUN Creatinine Estim Creat Clear Calc Est GFR (MDRD) Af Amer Est GFR (MDRD) Non-Af BUN/Creatinine Ratio Glucose Lactic Acid 3.7 H Calcium Phosphorus Magnesium Total Bilirubin AST ALT Alkaline Phosphatase Troponin I B-Natriuretic Peptide Total Protein Albumin Globulin Albumin/Globulin Ratio Urine Color Urine Clarity Urine pH Ur Specific [place] Urine Protein Urine Glucose (UA) Urine Ketones Urine Occult Blood Urine Nitrite Urine Bilirubin Urine Urobilinogen Ur Leukocyte Esterase Urine RBC Urine WBC Ur Squamous Epith Cells Urine Bacteria Urine Mucus MRSA (PCR) Blood Type Antibody Screen 07/16/18 07/16/18 07/16/18 07:15 07:15 07:15 WBC RBC Hgb Hct MCV MCH MCHC RDW RDW Differential Plt Count MPV Immature Gran % (Auto) Neut % (Auto) Lymph % (Auto) [place] % (Auto) Eos % (Auto) Baso % (Auto) Absolute Neuts (auto) Absolute Lymphs (auto) Total Counted Neutrophils % (Manual) Band Neutrophils % Lymphocytes % (Manual) Monocytes % (Manual) Metamyelocytes % Myelocytes % Nucleated RBC % Differential Comment Diff Path Review Dohle Bodies Platelet Estimate Plt Morphology Comment RBC Morphology Anisocytosis Absolute Retic PT INR APTT Specimen Type Sample Site pH Bicarbonate Actual POC Total CO2 Base Excess O2 Saturation ABG pCO2 ABG pO2 O2 Delivery Device Liter Flow Blood Gas Notified Whom Sodium 147 H Potassium 4.1 Chloride 116 H Carbon Dioxide 18.0 L Anion Gap 13 BUN 33 H Creatinine 3.01 H Estim Creat Clear Calc 20.55 Est GFR (MDRD) Af Amer 26 L Est GFR (MDRD) Non-Af 21 L BUN/Creatinine Ratio 11.0 Glucose 69 L Lactic Acid 6.5 H* Calcium 7.6 L Phosphorus Magnesium Total Bilirubin 0.50 AST 108 H ALT 43 Alkaline Phosphatase 136 H Troponin I B-Natriuretic Peptide 1632.3 H Total Protein 5.1 L Albumin 2.3 L Globulin 2.8 Albumin/Globulin Ratio 0.8 L Urine Color Urine Clarity Urine pH Ur Specific [place] Urine Protein Urine Glucose (UA) Urine Ketones Urine Occult Blood Urine Nitrite Urine Bilirubin Urine Urobilinogen Ur Leukocyte Esterase Urine RBC Urine WBC Ur Squamous Epith Cells Urine Bacteria Urine Mucus MRSA (PCR) Blood Type Antibody Screen 07/16/18 07/16/18 07/16/18 07:15 08:00 15:30 WBC RBC Hgb 11.8 L Hct 39.6 L MCV MCH MCHC RDW RDW Differential Plt Count MPV Immature Gran % (Auto) Neut % (Auto) Lymph % (Auto) [place] % (Auto) Eos % (Auto) Baso % (Auto) Absolute Neuts (auto) Absolute Lymphs (auto) Total Counted Neutrophils % (Manual) Band Neutrophils % Lymphocytes % (Manual) Monocytes % (Manual) Metamyelocytes % Myelocytes % Nucleated RBC % Differential Comment Diff Path Review Dohle Bodies Platelet Estimate Plt Morphology Comment RBC Morphology Anisocytosis Absolute Retic PT INR APTT Specimen Type Sample Site pH Bicarbonate Actual POC Total CO2 Base Excess O2 Saturation ABG pCO2 ABG pO2 O2 Delivery Device Liter Flow Blood Gas Notified Whom Sodium Potassium Chloride Carbon Dioxide Anion Gap BUN Creatinine Estim Creat Clear Calc Est GFR (MDRD) Af Amer Est GFR (MDRD) Non-Af BUN/Creatinine Ratio Glucose Lactic Acid Calcium Phosphorus 3.7 Magnesium 1.5 L Total Bilirubin AST ALT Alkaline Phosphatase Troponin I B-Natriuretic Peptide Total Protein Albumin Globulin Albumin/Globulin Ratio Urine Color Urine Clarity Urine pH Ur Specific [place] Urine Protein Urine Glucose (UA) Urine Ketones Urine Occult Blood Urine Nitrite Urine Bilirubin Urine Urobilinogen Ur Leukocyte Esterase Urine RBC Urine WBC Ur Squamous Epith Cells Urine Bacteria Urine Mucus MRSA (PCR) Negative Blood Type Antibody Screen 07/16/18 07/17/18 07/17/18 15:30 04:55 04:55 WBC 22.8 H RBC 4.37 L Hgb 11.3 L Hct 36.4 L MCV 83.3 MCH 25.9 L MCHC 31.0 L RDW 22.8 H RDW Differential 69.9 H Plt Count 66 L MPV Immature Gran % (Auto) Neut % (Auto) Not Reportable Lymph % (Auto) [place] % (Auto) Eos % (Auto) Baso % (Auto) Absolute Neuts (auto) 21.2 H Absolute Lymphs (auto) 0.46 L Total Counted 100 Neutrophils % (Manual) 81 H Band Neutrophils % 12 H Lymphocytes % (Manual) 2 L Monocytes % (Manual) 3 Metamyelocytes % 2 H Myelocytes % Nucleated RBC % Differential Comment Diff Path Review May foll Dohle Bodies Platelet Estimate MOD DEC Plt Morphology Comment LARGE RBC Morphology NORM C+C Anisocytosis Absolute Retic PT 16.9 H INR 1.4 APTT Specimen Type Sample Site pH Bicarbonate Actual POC Total CO2 Base Excess O2 Saturation ABG pCO2 ABG pO2 O2 Delivery Device Liter Flow Blood Gas Notified Whom Sodium 144 Potassium 4.9 Chloride 118 H Carbon Dioxide 18.0 L Anion Gap 8 BUN 39 H Creatinine 3.02 H Estim Creat Clear Calc 20.48 Est GFR (MDRD) Af Amer 26 L Est GFR (MDRD) Non-Af 21 L BUN/Creatinine Ratio 12.9 Glucose 90 Lactic Acid Calcium 7.4 L Phosphorus Magnesium Total Bilirubin AST ALT Alkaline Phosphatase Troponin I B-Natriuretic Peptide Total Protein Albumin Globulin Albumin/Globulin Ratio Urine Color Urine Clarity Urine pH Ur Specific [place] Urine Protein Urine Glucose (UA) Urine Ketones Urine Occult Blood Urine Nitrite Urine Bilirubin Urine Urobilinogen Ur Leukocyte Esterase Urine RBC Urine WBC Ur Squamous Epith Cells Urine Bacteria Urine Mucus MRSA (PCR) Blood Type Antibody Screen 07/17/18 04:55 WBC RBC Hgb Hct MCV MCH MCHC RDW RDW Differential Plt Count MPV Immature Gran % (Auto) Neut % (Auto) Lymph % (Auto) [place] % (Auto) Eos % (Auto) Baso % (Auto) Absolute Neuts (auto) Absolute Lymphs (auto) Total Counted Neutrophils % (Manual) Band Neutrophils % Lymphocytes % (Manual) Monocytes % (Manual) Metamyelocytes % Myelocytes % Nucleated RBC % Differential Comment Diff Path Review Dohle Bodies Platelet Estimate Plt Morphology Comment RBC Morphology Anisocytosis Absolute Retic PT INR APTT Specimen Type Sample Site pH Bicarbonate Actual POC Total CO2 Base Excess O2 Saturation ABG pCO2 ABG pO2 O2 Delivery Device Liter Flow Blood Gas Notified Whom Sodium 148 H Potassium 5.3 H Chloride 119 H Carbon Dioxide 19.0 L Anion Gap 10 BUN 54 H Creatinine 3.02 H Estim Creat Clear Calc 20.48 Est GFR (MDRD) Af Amer 26 L Est GFR (MDRD) Non-Af 21 L BUN/Creatinine Ratio 17.9 Glucose 104 Lactic Acid Calcium 7.0 L Phosphorus 6.1 H Magnesium 1.6 Total Bilirubin 0.60 AST 255 H ALT 91 H Alkaline Phosphatase 99 Troponin I B-Natriuretic Peptide Total Protein 5.2 L Albumin 2.0 L Globulin 3.2 Albumin/Globulin Ratio 0.6 L Urine Color Urine Clarity Urine pH Ur Specific [place] Urine Protein Urine Glucose (UA) Urine Ketones Urine Occult Blood Urine Nitrite Urine Bilirubin Urine Urobilinogen Ur Leukocyte Esterase Urine RBC Urine WBC Ur Squamous Epith Cells Urine Bacteria Urine Mucus MRSA (PCR) Blood Type Antibody Screen Microbiology 07/15/18 16:11 Urine, Clean Catch Urine Culture - Preliminary GNR lactose extractor operator helper 07/16/18 07:15 Mucosa - Nasopharyngeal Respiratory Panel (PCR) - Final 07/15/18 16:11 Urine, Clean Catch Urine Culture - Preliminary GNR lactose extractor operator helper 07/16/18 09:15 Stool C. difficile DNA Amplification - Final 07/16/18 08:15 Urine Catheter - Chambers Streptococcus pneumoniae Antigen (M - Final 07/16/18 08:15 Urine Catheter - Chambers Legionella Antigen - Final 07/15/18 15:05 Blood Culture (Wb) - Right Hand Blood Culture - Preliminary 07/15/18 14:58 Blood Culture (Wb) - Anticubital Left Blood Culture - Preliminary Clinical Impression(s) from Imaging Studies Abdomen/Pelvis CTA 07/15/18 14:34 IMPRESSION: 4 mm track is at the left ureter vesicle junction causing left-sided hydronephrosis and hydroureter with left perinephric stranding. The remainder of the examination is unchanged. Electronically Signed: Stef Carlton, at 15:18 EDT , Service support , Chest X-Ray 07/15/18 14:46 IMPRESSION: Increased markings at the left lung base with areas of confluence and blunting of the left cardiac phrenic angle. Early infiltrate and/or atelectasis should be excluded. Electronically Signed: Stef Carlton, at 15:02 EDT , Service support , Chest X-Ray 07/16/18 03:50 IMPRESSION: Right basilar airspace consolidation, atelectasis and small pleural effusion possibly representing pneumonia. Electronically Signed: Bree Agarwal MD at 4:58 EDT , Service support , Chest X-Ray 07/16/18 06:31 IMPRESSION: Right basilar airspace consolidation and/or subsegmental atelectasis. Electronically Signed: Bree Agarwal MD at 8:09 EDT , Service support , Chest X-Ray 07/16/18 08:41 IMPRESSION: Right IJ central venous catheter as above. No pneumothorax. Small amount of right lower lobe airspace disease. Remainder is within normal limits Electronically Signed: Tyler Sharp DO at 9:22 EDT Tel , Service support , Medical Necessity - Tobacco Use Smoking Status: Current every day smoker Assessment/Plan All Active Problems (Last Reviewed 07/15/18 @ 18:01 by Olvin Chopra DO) Renal colic on left side (Acute) Ureterolithiasis (Acute) RICHI (acute kidney injury) (Acute) Severe sepsis (Acute) Severe sepsis (Acute) Pyelonephritis (Acute) S/P TURP (status post transurethral resection of prostate) (Resolved) History of inguinal hernia repair (Resolved) History of hemorrhoidectomy (Resolved) History of prostatectomy (Resolved) right ochiectomy (Resolved) History of appendectomy (Resolved) Acute respiratory failure with hypoxia (Resolved) Stool guaiac positive (Resolved) RECOMMENDATIONS: 1. Continue BiPAP therapy and wean as tolerated. Goal to maintain an oxygen saturation at or above 90%. 2. Continue broad-spectrum antimicrobial coverage. 3. Patient to remain n.p.o. for now, until reevaluated by urology. 4. Stress dose steroids can be discontinued from my perspective. 5. Continue bronchodilators. 6. Continue appropriate ICU prophylaxis. 7. Wean Levophed to maintain a mean arterial pressure at or above 65 mmHg. IMPRESSIONS: 1. Gram-negative septic shock secondary to pyelonephritis with superimposed pulmonary infectious process The patient has what appears to be gram-negative pyelonephritis and bacteremia with radiographic evidence of a right lower lobe pneumonia. He has received adequate volume resuscitation. He will be continued on Levophed to maintain a mean arterial pressure at or above 65 mmHg. Continue broad-spectrum antimicrobial coverage. Urology to consider intervention today. Stress dose steroids do not need to be continued, as the patient was only on 5 mg of prednisone as an outpatient. 2. Acute hypoxemic respiratory failure/baseline COPD with exacerbation Likely secondary to underlying pulmonary infectious process. Continue current supportive measures with broad-spectrum antimicrobial coverage. Continue scheduled bronchodilators as well. Wean supplemental oxygen to maintain saturations at or above 90%. Continue BiPAP as needed. 3. Acute kidney injury/non-anion gap metabolic acidosis Likely prerenal in etiology with a component of ischemic ATN secondary to #1. We will plan to continue current supportive measures with vasopressor support in an attempt to maintain a mean arterial pressure at or above 65 mmHg. We will continue to monitor urine output accordingly. No current indication for renal replacement therapy. 4. Obstructive sleep apnea Continue noninvasive positive pressure ventilation as ordered. 5. Paroxysmal atrial fibrillation on Xarelto The patient Xarelto is currently on hold due to the potential need for surgical intervention. 6. CODE STATUS Both Dr. Rendon and Rao spoke with the patient's family this morning. He does have an active DNR CCA on file. However, per our discussion with the patient's family, they are agreeable to the patient being intubated if absolutely necessary. Therefore, the patient's CODE STATUS will be updated to DNR CCA with intubation. TIME: 40 minutes of critical care time, inclusive of procedures, was spent addressing the patient's gram-negative septic shock, pyelonephritis, pneumonia, acute hypoxemic respiratory failure, acute kidney injury, COPD, obstructive sleep apnea, paroxysmal atrial fibrillation, review of all data and collaboration with the care team. ([id number]) Code Visit [id number]: [id number] Critical care first hour
--- NOTE | 2018-07-17 07:53 | PCM.PROGNOTE ---
Patient Problems: Active and Suspected Problems (Last Reviewed 07/15/18 @ 18:01 by Olvin Chopra DO) Renal colic on left side (Acute) Ureterolithiasis (Acute) RICHI (acute kidney injury) (Acute) Severe sepsis (Acute) Severe sepsis (Acute) Pyelonephritis (Acute) Subjective: Day #2 meropenem and vancomycin All events of the past 24 hours been reviewed. Tmax for the past 24 hours is 101.4 ?F. Current temp is 99.4 ?F. Blood pressure remains low but the MAP's have been 65 or greater. He continues on Levophed. Pulse ox is 96-98% on a 6 L nasal cannula. Fluid balance since admission is +[phone]. All labs were personally reviewed. The white blood cell count is 22.8 today, up from 17.1 on 07/16/2018. Metamyelocytes have decreased from 11-2. He has 12 bands today. Platelets continue to drop and are currently 66,000. PT today is 16.9. Patient was on Xarelto at admission. Sodium is increased at 148 and the potassium is 5.3. Creatinine is stable at 3.02. and the serum bicarb is 19 today. Magnesium is 1.6 and phosphorus is now 6.1. The AST is increasing and is to 55 today with an ALT of 91. Bilirubin and alk phos are normal. 2 of 2 blood cultures and the urine culture are growing gram negative dmitri lactose basket hand braider is. MRSA nasal screen was negative. Legionella and streptococcal antigens of the urine are negative. Respiratory panel was negative. C. difficile was negative. Urine cultures is positive for Klebsiella pneumoniae which is resistant to ampicillin but otherwise sensitive to everything except Macrodantin to which it is intermediately sensitive. He is alert today and making jokes. He is not tachypneic on a NC. Not coughing and he denies SOB. No abdominal pain and no flank pain. Your looks like tea. BM's have slowed down. Objective: - Physical Exam General: Well developed, alert and appropriate today HEENT: Atraumatic, Normocephalic Neck: Supple, No JVD, No Nodes, No Nuchal Rigidity, Trachea Midline, -He is on a NC and lying flat on his side today and is not tachypneic Lungs: No rhonchi, No wheeze, Diminished, CTA, not tachypneic at rest, no conversational dyspnea, no accessory muscle use, lying flat in bed on his side with no respiratory distress Cardiovascular: Regular Rhythm, Normal S1, Normal S2, No murmurs, Tachycardic, - - telemetry shows NSR with PVC's and PAC's with short bursts of SVT Abdomen: Soft, Hypoactive Bowel Sounds, Distended - mild, NT Extremities: No clubbing, No cyanosis, No edema Skin: No rashes, No breakdown, - - he has bruising of the R arm and some scratches on the legs and bruising on the right lateral ribs and the R back.......denies pain Musculoskeletal: Arthritic Changes, Muscle Wasting in the calves Neurological: Cranial nerves II-XII grossly intact, Neuro grossly intact, - - No focal neurologic deficits Psych/Mental Status: - he is appropriate today with a normal affect - Physical Exam Vital Signs Temp Pulse Resp BP Pulse Ox 99.4 F H 101 H 21 H 87/70 L 96 07/17/18 07:00 07/17/18 07:15 07/17/18 07:00 07/17/18 07:00 07/17/18 07:14 Oxygen Flow Rate (L/min) 6 Oxygen Delivery Method Nasal Cannula Weight: 166 lb 3.657 oz Body Mass Index (BMI) 23.5 Finger Stick Blood Glucose 118 Intake and Output for Last 24 Hours 07/15/18 07/16/18 07/17/18 23:59 23:59 23:59 Intake Total 1065 / 1065 2623.1 / 2623.1 269.8 / 269.8 Output Total 245 / 245 250 / 250 Balance 1065 / 1065 2378.1 / 2378.1 19.8 / 19.8 Microbiology Past 72 Hours 07/15/18 15:05 Blood Culture - Preliminary Blood Culture (Wb) - Right Hand GNR lactose basket hand braider 07/15/18 14:58 Blood Culture - Preliminary Blood Culture (Wb) - Anticubital Left GNR lactose basket hand braider 07/15/18 16:11 Urine Culture - Preliminary Urine, Clean Catch GNR lactose basket hand braider 07/16/18 07:15 Respiratory Panel (PCR) - Final Mucosa - Nasopharyngeal 07/15/18 16:11 Urine Culture - Preliminary Urine, Clean Catch GNR lactose basket hand braider 07/16/18 09:15 C. difficile DNA Amplification - Final Stool 07/16/18 08:15 Streptococcus pneumoniae Antigen (M - Final Urine Catheter - Chambers 07/16/18 08:15 Legionella Antigen - Final Urine Catheter - Chambers Laboratory Tests Past 24 Hrs 07/16/18 07/16/18 07/16/18 07:15 07:15 07:15 WBC 17.1 H RBC 4.51 L Hgb 11.6 L Hct 38.7 L MCV 85.8 MCH 25.7 L MCHC 30.0 L RDW 22.5 H RDW Differential 71.0 H Plt Count 88 L MPV TNP Neut % (Auto) Not Reportable Absolute Neuts (auto) 13.2 H Absolute Lymphs (auto) 0.69 L Total Counted 100 Neutrophils % (Manual) 73 H Band Neutrophils % 4 Lymphocytes % (Manual) 4 L Monocytes % (Manual) 7 Metamyelocytes % 11 H Myelocytes % 1 H Nucleated RBC % 0.5 Diff Path Review May foll Dohle Bodies RARE Platelet Estimate MOD DEC Plt Morphology Comment RBC Morphology Absolute Retic 0.09 PT INR Sodium 147 H Potassium 4.1 Chloride 116 H Carbon Dioxide 18.0 L Anion Gap 13 BUN 33 H Creatinine 3.01 H Estim Creat Clear Calc 20.55 Est GFR (MDRD) Af Amer 26 L Est GFR (MDRD) Non-Af 21 L BUN/Creatinine Ratio 11.0 Glucose 69 L Calcium 7.6 L Phosphorus Magnesium Total Bilirubin 0.50 AST 108 H ALT 43 Alkaline Phosphatase 136 H B-Natriuretic Peptide 1632.3 H Total Protein 5.1 L Albumin 2.3 L Globulin 2.8 Albumin/Globulin Ratio 0.8 L MRSA (PCR) 07/16/18 07/16/18 07/16/18 07:15 08:00 15:30 WBC RBC Hgb 11.8 L Hct 39.6 L MCV MCH MCHC RDW RDW Differential Plt Count MPV Neut % (Auto) Absolute Neuts (auto) Absolute Lymphs (auto) Total Counted Neutrophils % (Manual) Band Neutrophils % Lymphocytes % (Manual) Monocytes % (Manual) Metamyelocytes % Myelocytes % Nucleated RBC % Diff Path Review Dohle Bodies Platelet Estimate Plt Morphology Comment RBC Morphology Absolute Retic PT INR Sodium Potassium Chloride Carbon Dioxide Anion Gap BUN Creatinine Estim Creat Clear Calc Est GFR (MDRD) Af Amer Est GFR (MDRD) Non-Af BUN/Creatinine Ratio Glucose Calcium Phosphorus 3.7 Magnesium 1.5 L Total Bilirubin AST ALT Alkaline Phosphatase B-Natriuretic Peptide Total Protein Albumin Globulin Albumin/Globulin Ratio MRSA (PCR) Negative 07/16/18 07/17/18 07/17/18 15:30 04:55 04:55 WBC 22.8 H RBC 4.37 L Hgb 11.3 L Hct 36.4 L MCV 83.3 MCH 25.9 L MCHC 31.0 L RDW 22.8 H RDW Differential 69.9 H Plt Count 66 L MPV Neut % (Auto) Not Reportable Absolute Neuts (auto) 21.2 H Absolute Lymphs (auto) 0.46 L Total Counted 100 Neutrophils % (Manual) 81 H Band Neutrophils % 12 H Lymphocytes % (Manual) 2 L Monocytes % (Manual) 3 Metamyelocytes % 2 H Myelocytes % Nucleated RBC % Diff Path Review May foll Dohle Bodies Platelet Estimate MOD DEC Plt Morphology Comment LARGE RBC Morphology NORM C+C Absolute Retic PT 16.9 H INR 1.4 Sodium 144 Potassium 4.9 Chloride 118 H Carbon Dioxide 18.0 L Anion Gap 8 BUN 39 H Creatinine 3.02 H Estim Creat Clear Calc 20.48 Est GFR (MDRD) Af Amer 26 L Est GFR (MDRD) Non-Af 21 L BUN/Creatinine Ratio 12.9 Glucose 90 Calcium 7.4 L Phosphorus Magnesium Total Bilirubin AST ALT Alkaline Phosphatase B-Natriuretic Peptide Total Protein Albumin Globulin Albumin/Globulin Ratio MRSA (PCR) 07/17/18 04:55 WBC RBC Hgb Hct MCV MCH MCHC RDW RDW Differential Plt Count MPV Neut % (Auto) Absolute Neuts (auto) Absolute Lymphs (auto) Total Counted Neutrophils % (Manual) Band Neutrophils % Lymphocytes % (Manual) Monocytes % (Manual) Metamyelocytes % Myelocytes % Nucleated RBC % Diff Path Review Dohle Bodies Platelet Estimate Plt Morphology Comment RBC Morphology Absolute Retic PT INR Sodium 148 H Potassium 5.3 H Chloride 119 H Carbon Dioxide 19.0 L Anion Gap 10 BUN 54 H Creatinine 3.02 H Estim Creat Clear Calc 20.48 Est GFR (MDRD) Af Amer 26 L Est GFR (MDRD) Non-Af 21 L BUN/Creatinine Ratio 17.9 Glucose 104 Calcium 7.0 L Phosphorus 6.1 H Magnesium 1.6 Total Bilirubin 0.60 AST 255 H ALT 91 H Alkaline Phosphatase 99 B-Natriuretic Peptide Total Protein 5.2 L Albumin 2.0 L Globulin 3.2 Albumin/Globulin Ratio 0.6 L MRSA (PCR) Medical Necessity - Tobacco Use Smoking Status: Current every day smoker Assessment/Plan All Active Problems (Last Reviewed 07/15/18 @ 18:01 by Olvin Chopra DO) Renal colic on left side (Acute) Ureterolithiasis (Acute) RICHI (acute kidney injury) (Acute) Severe sepsis (Acute) Severe sepsis (Acute) Pyelonephritis (Acute) S/P TURP (status post transurethral resection of prostate) (Resolved) History of inguinal hernia repair (Resolved) History of hemorrhoidectomy (Resolved) History of prostatectomy (Resolved) right ochiectomy (Resolved) History of appendectomy (Resolved) Acute respiratory failure with hypoxia (Resolved) Stool guaiac positive (Resolved) Day #2 antibitoics - Vanco and Merrem discontinued and he was transitioned to Rocephin 2 GM IV daily Impressions 1. Septic shock secondary to urinary tract infection/pyelonephritis with 2 of 2 blood cultures positive for gram-negative rods and the urine with Klebsiella pneumoniae 2. Left hydronephrosis and hydroureter secondary to nephrolithiasis with calculus at the ureteropelvic junction on the left-Dr. Rendon is on consult 3. Acute renal failure 4. Acute respiratory failure with hypoxia 5. Left pyelonephritis 6. CAD with hx of PTCA 7. BPH 8. Thrombocytopenia-likely secondary to infection 9. Anemia-chronic and stable 10. Hypernatremia 11. Abnormal LFTs 12. Pneumonia-likely secondary to bacteremic spread 13. Paroxysmal atrial fibrillation 14. Chronic anticoagulation with Xarelto - this is on hold 15. Alzheimer's disease 16. History of diastolic congestive heart failure 17. COPD 18. Pulmonary hypertension 19. History of pacemaker implantation 20. Nephrolithiasis 21. Dysautonomia 22. Depression-on Cymbalta 60 twice daily 23. Chronic immunosuppression with prednisone 24. Thrombocytopenia DC vancomycin and Merrem Start Rocephin 2 g IV daily Wean Levophed as tolerated and maintain MAP greater than 65 Dr. Rendon will not be doing surgery today-he wants to wait to the blood pressure improves. Will likely have surgery tomorrow so we will keep n.p.o. after midnight and start on a diet now Start a probiotic Continue BiPAP when he is sleeping at night and any time he is sleeping during the day Recheck lab in the a.m. Continue to hold Xarelto Start heparin 5000 subcu every 12 hours for DVT prophylaxis. Continue SCDs and NICK hose Fentanyl l 25 mcg every 1 hours as needed pain Code Visit Inpatient E&M: 72925 Subs Hosp L3
[2018-07-17] MEDS: Ipratropium/Albuterol Sulfate 3 ML AMPUL.NEB INHALATION ×2 (10:47→14:31)
[2018-07-17] MEDS: fentaNYL 100 MCG/2 ML Ampul 25 MCG IV ×5 (13:04→23:47)
[2018-07-17] MEDS: DULoxetine Hcl 60 MG Capsule PO (17:45)
[2018-07-17] MEDS: Donepezil HCl 10 MG Tablet PO (17:45)
[2018-07-17] MEDS: Tamsulosin HCl 0.4 MG Capsule PO (17:46)
[2018-07-17] MEDS: Atorvastatin Calcium 10 MG Tablet PO (17:48)
[2018-07-18] VITALS (42 sets, daily range): BP systolic 84–121; BP diastolic 48–83; PULSE 75–100; RESP 12–27; TEMP 35.6–37.4; O2SAT 95–100; BMI 23.7
[2018-07-18] MEDS: fentaNYL 100 MCG/2 ML Ampul 25 MCG IV ×5 (01:08→19:50)
[2018-07-18] MEDS: CHLORHEXIDINE GLUC 2% CLOTH 1 EACH TOWELETTE TOPICAL ×2 (01:09→09:49)
[2018-07-18 04:31] LABS: International Normalized Ratio 1.2; Prothrombin Time (Protime)PT. 15.3 SECONDS (11.7-14.9)
[2018-07-18 04:37] LABS: Anion Gap 9 (5-15); BUN 79 mg/dL (7-18); BUN/Creat Ratio 23.7 RATIO (10-20); Calcium,Total 7.2 mg/dL (8.5-10.1); Chloride 118 mmol/L (98-107); Creatinine, Serum 3.33 mg/dL (0.70-1.30); EST Glomerular Filtration Rate 19 mL/min (>60); Est Glom Filt Rate - Afr Amer 23 mL/min (>60); Estimated Creatinine Clearance 18.57 ml/min; Glucose 130 mg/dL (74-106); Magnesium 2.2 mg/dL (1.6-2.6); Potassium 5.5 mmol/L (3.5-5.1); Sodium Level 147 mmol/L (136-145)
[2018-07-18 04:42] LABS: Hematocrit 32.8 % (40-54); Hemoglobin 10.2 g/dl (13.0-16.5); Mean Corp Hgb Conc 31.1 g/gl (32-36); Mean Corpuscular Hgb 25.6 pg (27.0-32.0); Mean Corpuscular Volume 82.4 fL (80-94); Platelet Count 34 K/mm3 (150-450); RBC Distribution Width CV 22.5 % (11.6-14.6); RBC Distribution Width SD 68.2 fl (35.1-43.9); Red Blood Count 3.98 M/mm3 (4.6-6.2); White Blood Count 21.2 K/mm3 (4.4-11.0)
[2018-07-18 04:53] LABS: Scan Indicated on CBC? Y/N YES- FLAGS NOTED
[2018-07-18 04:55] LABS: Differential Comment SCANNED
[2018-07-18 05:14] LABS: Vancomycin, Random Level 11.2 ug/mL (0.0-15.0)
[2018-07-18] MEDS: Hydrocortisone Sod Succinate 100 MG/2 ML Vial 50 MG IV ×3 (05:28→21:27)
--- NOTE | 2018-07-18 07:14 | PCM.PN.INT ---
Subjective: Patient significantly confused and unable to provide any history at this morning. Patient is denying any pain for me. No bleeding has been reported by nursing. Patient has had BiPAP in place. Objective: Telemetry QT was noted at 0.38 prior to administration of Haldol General: Confused, Disoriented, Non-Cooperative HEENT: Atraumatic, PERRLA, EOMI, Normocephalic Oral: No Gingival or Mucosal Lesions/ Ulcerations, Dry Mucosa Neck: Supple, No JVD, No Nodes, Trachea Midline Lungs: No rhonchi, No wheeze, No rales, Diminished Cardiovascular: Regular rate, Regular Rhythm, Normal S1, Normal S2, No murmurs, No rub noted, No Gallop Abdomen: Bowel Sounds Present, Soft, Non Tender, Non-Distended Extremities: No cyanosis, No edema, Capillary Refill Less than 3 Seconds, Clubbing Skin: No rashes, No breakdown, - Musculoskeletal: No Tenderness to Palpation of Joints or Extremities Lymphatic: No Cervical, Supraclavicular, or Inguinal Adenopathy Neurological: Cranial nerves II-XII grossly intact, Neuro grossly intact - No petechiae appreciated Psych/Mental Status: Agitated, Impulsive, Restless Vital Signs Temp Pulse Resp BP Pulse Ox 37.3 C H 92 27 H 121/48 H 100 07/18/18 06:00 07/18/18 07:11 07/18/18 07:11 07/18/18 06:00 07/18/18 06:00 Oxygen Flow Rate (L/min) 5 Oxygen Delivery Method Bi-pap Weight: 75.1 kg Body Mass Index (BMI) 23.5 Finger Stick Blood Glucose 118 Intake and Output for Last 24 Hours 07/16/18 07/17/18 07/18/18 23:59 23:59 23:59 Intake Total 2623.1 / 2623.1 800.8 / 800.8 Output Total 245 / 245 500 / 500 75 / 75 Balance 2378.1 / 2378.1 300.8 / 300.8 -75 / -75 Labs (Last 48 Hours) 07/16/18 07/16/18 07/16/18 07:15 07:15 07:15 WBC 17.1 H RBC 4.51 L Hgb 11.6 L Hct 38.7 L MCV 85.8 MCH 25.7 L MCHC 30.0 L RDW 22.5 H RDW Differential 71.0 H Plt Count 88 L MPV TNP Neut % (Auto) Not Reportable Absolute Neuts (auto) 13.2 H Absolute Lymphs (auto) 0.69 L Total Counted 100 Neutrophils % (Manual) 73 H Band Neutrophils % 4 Lymphocytes % (Manual) 4 L Monocytes % (Manual) 7 Metamyelocytes % 11 H Myelocytes % 1 H Nucleated RBC % 0.5 Differential Comment Diff Path Review May foll Dohle Bodies RARE Platelet Estimate MOD DEC Plt Morphology Comment RBC Morphology Absolute Retic 0.09 PT INR Sodium 147 H Potassium 4.1 Chloride 116 H Carbon Dioxide 18.0 L Anion Gap 13 BUN 33 H Creatinine 3.01 H Estim Creat Clear Calc 20.55 Est GFR (MDRD) Af Amer 26 L Est GFR (MDRD) Non-Af 21 L BUN/Creatinine Ratio 11.0 Glucose 69 L Lactic Acid 6.5 H* Calcium 7.6 L Phosphorus Magnesium Total Bilirubin 0.50 AST 108 H ALT 43 Alkaline Phosphatase 136 H B-Natriuretic Peptide Total Protein 5.1 L Albumin 2.3 L Globulin 2.8 Albumin/Globulin Ratio 0.8 L Random Vancomycin MRSA (PCR) 07/16/18 07/16/18 07/16/18 07:15 07:15 08:00 WBC RBC Hgb Hct MCV MCH MCHC RDW RDW Differential Plt Count MPV Neut % (Auto) Absolute Neuts (auto) Absolute Lymphs (auto) Total Counted Neutrophils % (Manual) Band Neutrophils % Lymphocytes % (Manual) Monocytes % (Manual) Metamyelocytes % Myelocytes % Nucleated RBC % Differential Comment Diff Path Review Dohle Bodies Platelet Estimate Plt Morphology Comment RBC Morphology Absolute Retic PT INR Sodium Potassium Chloride Carbon Dioxide Anion Gap BUN Creatinine Estim Creat Clear Calc Est GFR (MDRD) Af Amer Est GFR (MDRD) Non-Af BUN/Creatinine Ratio Glucose Lactic Acid Calcium Phosphorus 3.7 Magnesium 1.5 L Total Bilirubin AST ALT Alkaline Phosphatase B-Natriuretic Peptide 1632.3 H Total Protein Albumin Globulin Albumin/Globulin Ratio Random Vancomycin MRSA (PCR) Negative 07/16/18 07/16/18 07/17/18 15:30 15:30 04:55 WBC 22.8 H RBC 4.37 L Hgb 11.8 L 11.3 L Hct 39.6 L 36.4 L MCV 83.3 MCH 25.9 L MCHC 31.0 L RDW 22.8 H RDW Differential 69.9 H Plt Count 66 L MPV Neut % (Auto) Not Reportable Absolute Neuts (auto) 21.2 H Absolute Lymphs (auto) 0.46 L Total Counted 100 Neutrophils % (Manual) 81 H Band Neutrophils % 12 H Lymphocytes % (Manual) 2 L Monocytes % (Manual) 3 Metamyelocytes % 2 H Myelocytes % Nucleated RBC % Differential Comment Diff Path Review May foll Dohle Bodies Platelet Estimate MOD DEC Plt Morphology Comment LARGE RBC Morphology NORM C+C Absolute Retic PT INR Sodium 144 Potassium 4.9 Chloride 118 H Carbon Dioxide 18.0 L Anion Gap 8 BUN 39 H Creatinine 3.02 H Estim Creat Clear Calc 20.48 Est GFR (MDRD) Af Amer 26 L Est GFR (MDRD) Non-Af 21 L BUN/Creatinine Ratio 12.9 Glucose 90 Lactic Acid Calcium 7.4 L Phosphorus Magnesium Total Bilirubin AST ALT Alkaline Phosphatase B-Natriuretic Peptide Total Protein Albumin Globulin Albumin/Globulin Ratio Random Vancomycin MRSA (PCR) 07/17/18 07/17/18 07/18/18 04:55 04:55 04:10 WBC RBC Hgb Hct MCV MCH MCHC RDW RDW Differential Plt Count MPV Neut % (Auto) Absolute Neuts (auto) Absolute Lymphs (auto) Total Counted Neutrophils % (Manual) Band Neutrophils % Lymphocytes % (Manual) Monocytes % (Manual) Metamyelocytes % Myelocytes % Nucleated RBC % Differential Comment Diff Path Review Dohle Bodies Platelet Estimate Plt Morphology Comment RBC Morphology Absolute Retic PT 16.9 H INR 1.4 Sodium 148 H Potassium 5.3 H Chloride 119 H Carbon Dioxide 19.0 L Anion Gap 10 BUN 54 H Creatinine 3.02 H Estim Creat Clear Calc 20.48 Est GFR (MDRD) Af Amer 26 L Est GFR (MDRD) Non-Af 21 L BUN/Creatinine Ratio 17.9 Glucose 104 Lactic Acid Calcium 7.0 L Phosphorus 6.1 H Magnesium 1.6 Total Bilirubin 0.60 AST 255 H ALT 91 H Alkaline Phosphatase 99 B-Natriuretic Peptide Total Protein 5.2 L Albumin 2.0 L Globulin 3.2 Albumin/Globulin Ratio 0.6 L Random Vancomycin 11.2 MRSA (PCR) 07/18/18 07/18/18 07/18/18 04:10 04:10 04:10 WBC 21.2 H RBC 3.98 L Hgb 10.2 L Hct 32.8 L MCV 82.4 MCH 25.6 L MCHC 31.1 L RDW 22.5 H RDW Differential 68.2 H Plt Count 34 L* MPV Neut % (Auto) Absolute Neuts (auto) Absolute Lymphs (auto) Total Counted Neutrophils % (Manual) Band Neutrophils % Lymphocytes % (Manual) Monocytes % (Manual) Metamyelocytes % Myelocytes % Nucleated RBC % Differential Comment SCANNED Diff Path Review May foll Dohle Bodies Platelet Estimate Plt Morphology Comment RBC Morphology Absolute Retic PT 15.3 H INR 1.2 Sodium 147 H Potassium 5.5 H Chloride 118 H Carbon Dioxide 20.0 L Anion Gap 9 BUN 79 H Creatinine 3.33 H Estim Creat Clear Calc 18.57 Est GFR (MDRD) Af Amer 23 L Est GFR (MDRD) Non-Af 19 L BUN/Creatinine Ratio 23.7 H Glucose 130 H Lactic Acid Calcium 7.2 L Phosphorus Magnesium 2.2 Total Bilirubin AST ALT Alkaline Phosphatase B-Natriuretic Peptide Total Protein Albumin Globulin Albumin/Globulin Ratio Random Vancomycin MRSA (PCR) Microbiology 07/15/18 16:11 Urine, Clean Catch Urine Culture - Final Klebsiella pneumoniae sp pneum 07/15/18 16:11 Urine, Clean Catch Urine Culture - Final Klebsiella pneumoniae sp pneum 07/15/18 15:05 Blood Culture (Wb) - Right Hand Blood Culture - Preliminary GNR lactose admissions clinician 07/15/18 14:58 Blood Culture (Wb) - Anticubital Left Blood Culture - Preliminary GNR lactose admissions clinician 07/16/18 07:15 Mucosa - Nasopharyngeal Respiratory Panel (PCR) - Final 07/16/18 09:15 Stool C. difficile DNA Amplification - Final 07/16/18 08:15 Urine Catheter - Chambers Streptococcus pneumoniae Antigen (M - Final 07/16/18 08:15 Urine Catheter - Chambers Legionella Antigen - Final Medical Necessity - Tobacco Use Smoking Status: Current every day smoker Assessment/Plan All Active Problems (Last Reviewed 07/15/18 @ 18:01 by Olvin Chopra DO) Renal colic on left side (Acute) Ureterolithiasis (Acute) RICHI (acute kidney injury) (Acute) Severe sepsis (Acute) Severe sepsis (Acute) Pyelonephritis (Acute) S/P TURP (status post transurethral resection of prostate) (Resolved) History of inguinal hernia repair (Resolved) History of hemorrhoidectomy (Resolved) History of prostatectomy (Resolved) right ochiectomy (Resolved) History of appendectomy (Resolved) Acute respiratory failure with hypoxia (Resolved) Stool guaiac positive (Resolved) RECOMMENDATIONS: 1. Continue BiPAP therapy and wean as tolerated. Goal to maintain an oxygen saturation at or above 90%. 2. Continue broad-spectrum antimicrobial coverage. 3. Patient to remain n.p.o. pending stent placement 4. Likely discontinue stress dose steroids in the next 24 hours 5. Transfuse platelets given surgical intervention 6. Haldol for agitation now 7. IMPRESSIONS: 1. Klebsiella pneumonia septic shock secondary to pyelonephritis with superimposed pulmonary infectious process Patient is growing Klebsiella from blood and urine cultures. Patient has been weaned off of Levophed therapy and blood pressure is okay at this time. Patient may have significant hypotension following stent placement, so should come back to the intensive care unit following placement. Patient's current platelet count is only 34, so platelets have been ordered. Defer to urology if stent placement needs to be deferred. 2. Acute hypoxemic respiratory failure/baseline COPD with exacerbation Likely secondary to underlying pulmonary infectious process. Continue current supportive measures with broad-spectrum antimicrobial coverage. Continue scheduled bronchodilators as well. Wean supplemental oxygen to maintain saturations at or above 90%. Continue BiPAP as needed. 3. Acute kidney injury/non-anion gap metabolic acidosis Likely prerenal in etiology with a component of ischemic ATN secondary to #1. We will plan to continue current supportive measures with vasopressor support, if indicated, in an attempt to maintain a mean arterial pressure at or above 65 mmHg. We will continue to monitor urine output accordingly. No current indication for renal replacement therapy. 4. Obstructive sleep apnea Continue noninvasive positive pressure ventilation as ordered. 5. Paroxysmal atrial fibrillation on Xarelto/thrombocytopenia The patient Xarelto is currently on hold due to the potential need for surgical intervention. Unclear etiology of patient's current thrombocytopenia. May have an element of splenic sequestration. No active bleeding is been noted. 6. CODE STATUS Both Dr. Rendon and Dr. Au spoke with the patient's family. He does have an active DNR CCA on file. However, per their discussion with the patient's family, they are agreeable to the patient being intubated if absolutely necessary. Therefore, the patient's CODE STATUS will be updated to DNR CCA with intubation. TIME: 33 minutes of critical care time, inclusive of procedures, was spent addressing the patient's gram-negative septic shock, pyelonephritis, pneumonia, acute hypoxemic respiratory failure, acute kidney injury, COPD, obstructive sleep apnea, paroxysmal atrial fibrillation, review of all data and collaboration with the care team. (5:40 AM to 6:40 AM) Code Visit 9xxxx: [id number] Critical care first hour
[2018-07-18] MEDS: Haloperidol Lactate 5 MG/ML Vial 3 MG IV (07:15)
--- NOTE | 2018-07-18 07:38 | PCM.PN.HOSP ---
Patient Problems: Active and Suspected Problems (Last Reviewed 07/15/18 @ 18:01 by Olvin Chopra DO) Renal colic on left side (Acute) Ureterolithiasis (Acute) RICHI (acute kidney injury) (Acute) Severe sepsis (Acute) Severe sepsis (Acute) Pyelonephritis (Acute) Subjective: Patient was seen and examined. Appears confused. Not oriented to self, place or time. On BiPAP. Going for ureteral stent placement today. No fevers seen overnight. Patient has been off levo fed. Blood pressures appear stable. Vitals/I&O's: Vital Signs Temp Pulse Resp BP Pulse Ox 99.2 F H 92 27 H 121/48 H 100 07/18/18 06:00 07/18/18 07:11 07/18/18 07:11 07/18/18 06:00 07/18/18 06:00 Oxygen Flow Rate (L/min) 5 Oxygen Delivery Method Bi-pap Weight: 75.1 kg Body Mass Index (BMI) 23.5 Finger Stick Blood Glucose 118 Intake and Output for Last 24 Hours 07/16/18 07/17/18 07/18/18 23:59 23:59 23:59 Intake Total 2623.1 / 2623.1 800.8 / 800.8 Output Total 245 / 245 500 / 500 75 / 75 Balance 2378.1 / 2378.1 300.8 / 300.8 -75 / -75 General: Alert, Cooperative, Confused HEENT: Atraumatic, PERRLA, EOMI, Normocephalic Oral: Dry Mucosa Neck: Supple, - - Right IJ central line Lungs: Diminished - at the lung bases Cardiovascular: Regular rate, Regular Rhythm, Normal S1, Normal S2, No murmurs Abdomen: Bowel Sounds Present, Soft, Non Tender, Non-Distended, No Hepato-splenomegaly Extremities: No edema Skin: - - Old bruises and scratch murillo Musculoskeletal: No Tenderness to Palpation of Joints or Extremities Lymphatic: No Cervical, Supraclavicular, or Inguinal Adenopathy Neurological: Cranial nerves II-XII grossly intact, Neuro grossly intact Psych/Mental Status: Normal Affect, Appropriate Microbiology Past 72 Hours 07/15/18 16:11 Urine, Clean Catch Urine Culture - Final Klebsiella pneumoniae sp pneum 07/15/18 16:11 Urine, Clean Catch Urine Culture - Final Klebsiella pneumoniae sp pneum 07/15/18 15:05 Blood Culture (Wb) - Right Hand Blood Culture - Preliminary GNR lactose escalator constructor 07/15/18 14:58 Blood Culture (Wb) - Anticubital Left Blood Culture - Preliminary GNR lactose escalator constructor 07/16/18 07:15 Mucosa - Nasopharyngeal Respiratory Panel (PCR) - Final 07/16/18 09:15 Stool C. difficile DNA Amplification - Final 07/16/18 08:15 Urine Catheter - Chambers Streptococcus pneumoniae Antigen (M - Final 07/16/18 08:15 Urine Catheter - Chambers Legionella Antigen - Final Laboratory Results 07/18/18 04:10: Random Vancomycin 11.2 07/18/18 04:10: WBC 21.2 H, RBC 3.98 L, Hgb 10.2 L, Hct 32.8 L, MCV 82.4, MCH 25.6 L, MCHC 31.1 L, RDW 22.5 H, RDW Differential 68.2 H, Plt Count 34 L*, Differential Comment SCANNED, Diff Path Review August07/18/18 04:10: PT 15.3 H, INR 1.2 07/18/18 04:10: Sodium 147 H, Potassium 5.5 H, Chloride 118 H, Carbon Dioxide 20.0 L, Anion Gap 9, BUN 79 H, Creatinine 3.33 H, Estim Creat Clear Calc 18.57, Est GFR (MDRD) Af Amer 23 L, Est GFR (MDRD) Non-Af 19 L, BUN/Creatinine Ratio 23.7 H, Glucose 130 H, Calcium 7.2 L, Magnesium 2.2 Current Medications Acetaminophen (Tylenol) 650 mg PO Q6H PRN PRN PRN Reason: Mild Pain (1-3)/Temp > 100.7 F Acetaminophen (Tylenol) 650 mg RECTAL Q4H PRN PRN PRN Reason: Temp greater than 100.9 Last Admin: 07/17/18 04:58 Dose: 650 mg Albuterol Sulfate (Ventolin Aerosols) 2.5 mg INHALATION Q2H PRN PRN PRN Reason: SHORTNESS OF BREATH Albuterol/Ipratropium (Duoneb) 3 ml INHALATION Q4HWA.RT BARBI Last Admin: 07/18/18 07:13 Dose: Not Given Atorvastatin Calcium (Lipitor) 10 mg PO QHS BARBI Last Admin: 07/17/18 17:48 Dose: 10 mg Chlorhexidine Gluconate () 1 each TOPICAL DAILY [facility] Last Admin: 07/18/18 01:09 Dose: 1 each Donepezil HCl (Aricept) 10 mg PO QHS [facility] Last Admin: 07/17/18 17:45 Dose: 10 mg Duloxetine HCl (Cymbalta) 60 mg PO BID [facility] Last Admin: 07/17/18 18:10 Dose: Not Given Fentanyl Citrate (Sublimaze (100mcg Ampule)) 25 mcg IV Q1H PRN PRN PRN Reason: PAIN Last Admin: 07/18/18 05:40 Dose: 25 mcg Finasteride (Proscar) 5 mg PO 0800 [facility] Last Admin: 07/17/18 07:39 Dose: Not Given Hydrocortisone Sodium Succinate (Solu-Cortef) 50 mg IV Q8 [facility] Last Admin: 07/18/18 05:28 Dose: 50 mg Pantoprazole Sodium 40 mg/ (Sodium Chloride) 110 mls @ 330 mls/hr IV Q24 [facility] Last Admin: 07/17/18 09:53 Dose: 330 mls/hr Norepinephrine Bitartrate 8 mg (/ Sodium Chloride) 250 mls @ 9.38 mls/hr CONT INF .[id number] [facility] Last Admin: 07/17/18 13:38 Dose: Not Given Ceftriaxone Sodium 2 gm/ (Sodium Chloride) 50 mls @ 100 mls/hr IV Q24 [facility] Last Admin: 07/17/18 17:47 Dose: 100 mls/hr Lactobacillus Acidophilus (Acidophilus) 1 tablet PO TID [facility] Last Admin: 07/18/18 05:28 Dose: Not Given Ondansetron HCl (Zofran) 4 mg IV Q8H PRN PRN PRN Reason: NAUSEA Last Admin: 07/17/18 05:15 Dose: 4 mg Sodium Chloride () 5 - 15 ml IV UD PRN PRN Reason: SALINE FLUSH Last Admin: 07/17/18 16:21 Dose: 10 ml Sodium Chloride () 10 - 40 ml IV UD PRN PRN Reason: MULTILUMEN/HICMAN CATH FLUSH Last Admin: 07/18/18 07:16 Dose: 20 ml Tamsulosin HCl (Flomax) 0.4 mg PO DAILY@1730 [facility] Last Admin: 07/17/18 17:46 Dose: 0.4 mg Medical Necessity - Tobacco Use Smoking Status: Current every day smoker Assessment/Plan All Active Problems (Last Reviewed 07/15/18 @ 18:01 by Olvin Chopra DO) Renal colic on left side (Acute) Ureterolithiasis (Acute) RICHI (acute kidney injury) (Acute) Severe sepsis (Acute) Severe sepsis (Acute) Pyelonephritis (Acute) S/P TURP (status post transurethral resection of prostate) (Resolved) History of inguinal hernia repair (Resolved) History of hemorrhoidectomy (Resolved) History of prostatectomy (Resolved) right ochiectomy (Resolved) History of appendectomy (Resolved) Acute respiratory failure with hypoxia (Resolved) Stool guaiac positive (Resolved) 77 y/o male with multiple co-morbidities admitted on 07/15/18 with septic shock secondary acute left pyelonephritis and obstructing left kidney stone. 1. Klebsiella pneumoniae bacteremia/septic shock, initial blood cultures showed Klebsiella pneumonia, repeat blood cultures were negative. WBC count appears to have plateaued, no fevers seen. BP appears to be stable. On IV ceftriaxone. Will trend labs, switch to Levaquin IV, continue to monitor 2. Acute hypoxic respiratory failure secondary to possible COPD exacerbation, on Bipap QHS and intermittently, to new as needed breathing treatments 3. Klebsiella pneumoniae complicated UTI/pyelonephritis, almost pansensitive, status post left ureteral stent today by urology Will continued to follow 4. Thrombocytopenia, acute, platelet count 34, gradual drop precipitously last 2 days, likely drug-related, Status post 1 unit of platelet prior to procedure, we will switch from ceftriaxone to Levaquin, will rule out HIT with HARPER panel, 5. RICHI, likely post renal, CT of the abdomen and pelvis showed hydroureter/hydronephrosis status post left ureteric stent placement, Trend labs in a.m. 6. Non-gap metabolic acidosis, secondary to RICHI, will continue to monitor, labs in am 7. 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 8. PAF, off Xarelto 9. DVT PPx- SCDs Code Visit Inpatient E&M: [id number] [facility] Hosp L3
[2018-07-18] MEDS: Haloperidol Lactate 5 MG/ML Vial 2 MG IV (07:50)
--- NOTE | 2018-07-18 08:21 | PCM.PN.BLA ---
Progress Note 77 yo male with stone UTI , sepsis more stable but Cr still rising, plan to proceed with left stent today at noon will get platelets today for procedure.
--- NOTE | 2018-07-18 12:11 | NURSING ---
report given to GAS REFRIGERATOR SERVICER, to OR per bed w/monitor and OR staff
[2018-07-18] MEDS: Lidocaine Jelly 2% 20 ML Syringe (URO-JET) 20 APPLIC (12:30)
--- NOTE | 2018-07-18 12:34 | CPS ---
This RT placed pt on bipap in surgery at approximately 12:25 per Andria RIBBON INKER instruction. Bipap settings given to Andria SHANKS before leaving.
--- NOTE | 2018-07-18 12:37 | PCM.OPRPT ---
Report of Operation Date of Procedure: 07/18/18 Pre-Operative Diagnosis: Left obstructing ureteral calculi and sepsis Post-Operative Diagnosis: Same Surgery/Procedure Performed:: Cystoscopy left stent placement Description of Surgical Findings:: 77-year-old male taken back from the ICU to the operating room he was on BiPAP and was given a little bit of sedation went into the bladder with a 21 Gabonese rigid cystourethroscope advanced a wire up on the left side and over the wire I then advanced a stent 6 [place]onese by 26 cm stent. Within the bladder there was a lot of debris that was evacuated out. Once the stent was in good position pulled the wire the stent coiled in the bladder and we checked the fluoroscopy and the stent was up in the kidney. Patient was then reversed from anesthesia and taken back to the ICU in stable but critical condition Type of Anesthesia:: General Drains: stent left side - Admit VTE Documentation VTE Present on Admission: No VTE Mechan Device Prophylaxis: SCD's
--- NOTE | 2018-07-18 13:00 | NURSING ---
return from OR, OR staff in attendance
[2018-07-18] MEDS: Haloperidol Lactate 5 MG/ML Vial IV (13:20)
--- NOTE | 2018-07-18 13:30 | NURSING ---
changed in the OR per OR staff
[2018-07-18 13:31] LABS: Pathologist Review Reviewed
[2018-07-18 13:34] LABS: Pathologist Review Reviewed
[2018-07-18] MEDS: Furosemide 20 MG/2 ML VIAL IV (14:08)
[2018-07-18] MEDS: Albuterol 2.5 MG/3 ML VIAL.NEB. INHALATION (15:09)
[2018-07-18 15:22] LABS: AST(SGOT) 1233 U/L (15-37); Alanine Aminotransfer ALT/SGPT 717 U/L (16-61); Albumin, Serum 2.2 g/dL (3.2-5.0); Alkaline Phosphatase 134 U/L (45-117); Bilirubin, Direct 0.58 mg/dL (0.00-0.30); Globulin 3.2 g/dL (2.2-4.2); Protein, Total 5.4 g/dL (6.4-8.2)
[2018-07-18] MEDS: levoFLOXacin IV 750 MG/150 ML BAG 100 MG IV (15:52)
--- NOTE | 2018-07-18 17:40 | NURSING ---
ed re chronic illness deferred till acute illness resolving
[2018-07-18] MEDS: Tamsulosin HCl 0.4 MG Capsule PO (17:55)
[2018-07-18] MEDS: Atorvastatin Calcium 10 MG Tablet PO (21:27)
[2018-07-18] MEDS: DULoxetine Hcl 60 MG Capsule PO (21:27)
[2018-07-18] MEDS: Donepezil HCl 10 MG Tablet PO (21:27)
[2018-07-18] MEDS: Acetaminophen 325 MG Tablet 650 MG PO (21:30)
--- NOTE | 2018-07-18 23:58 | CPS ---
pt is barely cooperating with RN as it is, turning and taking meds is a chore, pt on 3L nasal o2
[2018-07-19] VITALS (17 sets, daily range): BP systolic 102–123; BP diastolic 67–84; PULSE 86–99; RESP 14–22; TEMP 36.7–37.6; O2SAT 95–100
[2018-07-19] MEDS: Haloperidol Lactate 5 MG/ML Vial IV (00:19)
[2018-07-19] MEDS: fentaNYL 100 MCG/2 ML Ampul 25 MCG IV (02:31)
[2018-07-19 04:54] LABS: Absolute Lymphocyte Count 0.49 X10^3/ul (0.83-4.51); Absolute Neutrophil Count 14.7 X10^3/uL (2.0-7.7); Basophil# 0.03 X10^3/uL; Basophil% 0.2 % (0-1); Hematocrit 32.4 % (40-54); Hemoglobin 10.1 g/dl (13.0-16.5); Lymphocyte # 0.49 X10^3/ul (4.0); Lymphocyte % 3.1 % (19-41); Mean Corp Hgb Conc 31.2 g/gl (32-36); Mean Corpuscular Hgb 25.3 pg (27.0-32.0); Mean Corpuscular Volume 81.2 fL (80-94); Monocyte# 0.49 X10^3/uL; Monocyte% 3.1 % (0-10); Neutrophil # 14.69 X10^3/uL (2.7-7.7); RBC Distribution Width CV 22.2 % (11.6-14.6); RBC Distribution Width SD 66.2 fl (35.1-43.9); Red Blood Count 3.99 M/mm3 (4.6-6.2)
[2018-07-19 04:59] LABS: Anion Gap 10 (5-15); BUN 105 mg/dL (7-18); BUN/Creat Ratio 32.1 RATIO (10-20); Calcium,Total 7.3 mg/dL (8.5-10.1); Chloride 120 mmol/L (98-107); Creatinine, Serum 3.27 mg/dL (0.70-1.30); EST Glomerular Filtration Rate 20 mL/min (>60); Est Glom Filt Rate - Afr Amer 24 mL/min (>60); Estimated Creatinine Clearance 18.91 ml/min; Glucose 110 mg/dL (74-106); Potassium 5.8 mmol/L (3.5-5.1); Sodium Level 150 mmol/L (136-145)
[2018-07-19 05:07] LABS: Differential Indicated SCAN CRITERIA MET; POSITIVE COUNT YES; POSITIVE DIFFERENTIAL YES; POSITIVE MORPHOLOGY YES; Platelet Count 38 K/mm3 (150-450)
[2018-07-19 05:09] LABS: Absolute Nucleated RBC Count 0.66 10^3/uL (0-5); NRBC Flagged by Analyzer 4.1 % (0-5)
[2018-07-19 05:13] LABS: Anisocytosis 1+; Crenated RBC 1+; Microcytosis 1+; Ovalocyte RARE; Platelet Estimate MKD DEC (ADEQ)
[2018-07-19 05:14] LABS: Schistocytes RARE
[2018-07-19] MEDS: CHLORHEXIDINE GLUC 2% CLOTH 1 EACH TOWELETTE TOPICAL (05:35)
[2018-07-19] MEDS: Hydrocortisone Sod Succinate 100 MG/2 ML Vial 50 MG IV (05:35)
[2018-07-19] MEDS: oxyCODONE 5 MG Tablet PO (06:34)
--- NOTE | 2018-07-19 07:10 | PN_ITS ---
Subjective: Patient did okay overnight. Patient has not had any bleeding complications, but has remained confused. No fevers been reported. Pressor therapy did not have to be reinitiated following placement of the stent. Patient did refuse to wear BiPAP overnight. General: Alert, No apparent distress, Confused, Disoriented, - - Follow some commands. HEENT: Atraumatic, PERRLA, EOMI, Normocephalic, - - No scleral icterus or injection noted. Oral: Moist Mucosa, No Gingival or Mucosal Lesions/ Ulcerations Neck: Supple, No JVD, No Nodes, Trachea Midline Lungs: No rhonchi, No wheeze, No rales, Diminished, - - Symmetric expansion. No dullness to percussion. Cardiovascular: Regular rate, Regular Rhythm, Normal S1, Normal S2, No murmurs, No rub noted, No Gallop Abdomen: Bowel Sounds Present, Soft, Non Tender, Non-Distended Extremities: No cyanosis, No edema, Capillary Refill Less than 3 Seconds, Clubbing Skin: - - No significant change compared to previous Musculoskeletal: No Tenderness to Palpation of Joints or Extremities Lymphatic: No Cervical, Supraclavicular, or Inguinal Adenopathy Neurological: Cranial nerves II-XII grossly intact, Neuro grossly intact, Motor Exam 5/5 strength throughout Psych/Mental Status: Flat Affect Vital Signs Temp Pulse Resp BP Pulse Ox 37.4 C H 98 22 H 118/81 H 96 07/19/18 06:00 07/19/18 06:00 07/19/18 06:00 07/19/18 06:00 07/19/18 06:00 Oxygen Flow Rate (L/min) 3 Oxygen Delivery Method Nasal Cannula Weight: 74 kg Body Mass Index (BMI) 23.7 Finger Stick Blood Glucose 118 Intake and Output for Last 24 Hours 07/17/18 07/18/18 07/19/18 23:59 23:59 23:59 Intake Total 800.8 / 800.8 929 / 929 209.2 / 209.2 Output Total 500 / 500 395 / 395 125 / 125 Balance 300.8 / 300.8 534 / 534 84.2 / 84.2 Labs (Last 48 Hours) 07/16/18 07/17/18 07/18/18 07:15 04:55 04:10 WBC RBC Hgb Hct MCV MCH MCHC RDW RDW Differential Plt Count Immature Gran % (Auto) Neut % (Auto) Lymph % (Auto) [place] % (Auto) Eos % (Auto) Baso % (Auto) Absolute Neuts (auto) Absolute Lymphs (auto) Total Counted Nucleated RBC % Differential Comment Diff Path Review Reviewed Reviewed Platelet Estimate RBC Morphology Anisocytosis Microcytosis Ovalocytes Schistocytes Absolute Retic PT INR Sodium Potassium Chloride Carbon Dioxide Anion Gap BUN Creatinine Estim Creat Clear Calc Est GFR (MDRD) Af Amer Est GFR (MDRD) Non-Af BUN/Creatinine Ratio Glucose Calcium Magnesium Total Bilirubin Direct Bilirubin AST ALT Alkaline Phosphatase Total Protein Albumin Globulin Random Vancomycin 11.2 Heparin-induced Plt Ab 07/18/18 07/18/18 07/18/18 04:10 04:10 04:10 WBC 21.2 H RBC 3.98 L Hgb 10.2 L Hct 32.8 L MCV 82.4 MCH 25.6 L MCHC 31.1 L RDW 22.5 H RDW Differential 68.2 H Plt Count 34 L* Immature Gran % (Auto) Neut % (Auto) Lymph % (Auto) [place] % (Auto) Eos % (Auto) Baso % (Auto) Absolute Neuts (auto) Absolute Lymphs (auto) Total Counted Nucleated RBC % Differential Comment SCANNED Diff Path Review May foll Platelet Estimate RBC Morphology Anisocytosis Microcytosis Ovalocytes Schistocytes Absolute Retic PT 15.3 H INR 1.2 Sodium 147 H Potassium 5.5 H Chloride 118 H Carbon Dioxide 20.0 L Anion Gap 9 BUN 79 H Creatinine 3.33 H Estim Creat Clear Calc 18.57 Est GFR (MDRD) Af Amer 23 L Est GFR (MDRD) Non-Af 19 L BUN/Creatinine Ratio 23.7 H Glucose 130 H Calcium 7.2 L Magnesium 2.2 Total Bilirubin Direct Bilirubin AST ALT Alkaline Phosphatase Total Protein Albumin Globulin Random Vancomycin Heparin-induced Plt Ab 07/18/18 07/18/18 07/19/18 04:10 15:45 04:30 WBC 16.0 H RBC 3.99 L Hgb 10.1 L Hct 32.4 L MCV 81.2 MCH 25.3 L MCHC 31.2 L RDW 22.2 H RDW Differential 66.2 H Plt Count 38 L* Immature Gran % (Auto) 1.600 H Neut % (Auto) 92.0 H Lymph % (Auto) 3.1 L [place] % (Auto) 3.1 Eos % (Auto) 0.0 Baso % (Auto) 0.2 Absolute Neuts (auto) 14.7 H Absolute Lymphs (auto) 0.49 L Total Counted Not Reportable Nucleated RBC % 4.1 Differential Comment Diff Path Review May foll Platelet Estimate MKD DEC RBC Morphology 1+ Anisocytosis 1+ Microcytosis 1+ Ovalocytes RARE Schistocytes RARE Absolute Retic 0.66 PT INR Sodium Potassium Chloride Carbon Dioxide Anion Gap BUN Creatinine Estim Creat Clear Calc Est GFR (MDRD) Af Amer Est GFR (MDRD) Non-Af BUN/Creatinine Ratio Glucose Calcium Magnesium Total Bilirubin 0.90 Direct Bilirubin 0.58 H AST 1233 H ALT 717 H Alkaline Phosphatase 134 H Total Protein 5.4 L Albumin 2.2 L Globulin 3.2 Random Vancomycin Heparin-induced Plt Ab Pending 07/19/18 04:30 WBC RBC Hgb Hct MCV MCH MCHC RDW RDW Differential Plt Count Immature Gran % (Auto) Neut % (Auto) Lymph % (Auto) [place] % (Auto) Eos % (Auto) Baso % (Auto) Absolute Neuts (auto) Absolute Lymphs (auto) Total Counted Nucleated RBC % Differential Comment Diff Path Review Platelet Estimate RBC Morphology Anisocytosis Microcytosis Ovalocytes Schistocytes Absolute Retic PT INR Sodium 150 H Potassium 5.8 H Chloride 120 H Carbon Dioxide 20.0 L Anion Gap 10 BUN 105 H* Creatinine 3.27 H Estim Creat Clear Calc 18.91 Est GFR (MDRD) Af Amer 24 L Est GFR (MDRD) Non-Af 20 L BUN/Creatinine Ratio 32.1 H Glucose 110 H Calcium 7.3 L Magnesium Total Bilirubin Direct Bilirubin AST ALT Alkaline Phosphatase Total Protein Albumin Globulin Random Vancomycin Heparin-induced Plt Ab Microbiology 07/16/18 10:10 Blood Culture (Wb) - Arm Right Blood Culture - Preliminary No growth in 48 hours. 07/16/18 09:40 Blood Culture (Wb) - Line Draw Blood Culture - Preliminary No growth in 48 hours. 07/15/18 14:58 Blood Culture (Wb) - Anticubital Left Blood Culture - Final GNR lactose senior radiation protection technician 07/15/18 15:05 Blood Culture (Wb) - Right Hand Blood Culture - Final Klebsiella pneumoniae sp pneum 07/15/18 16:11 Urine, Clean Catch Urine Culture - Final Klebsiella pneumoniae sp pneum 07/15/18 16:11 Urine, Clean Catch Urine Culture - Final Klebsiella pneumoniae sp pneum Medical Necessity - Tobacco Use Smoking Status: Current every day smoker Assessment/Plan All Active Problems (Last Reviewed 07/15/18 @ 18:01 by Olvin Chopra DO) Renal colic on left side (Acute) Ureterolithiasis (Acute) RICHI (acute kidney injury) (Acute) Severe sepsis (Acute) Severe sepsis (Acute) Pyelonephritis (Acute) S/P TURP (status post transurethral resection of prostate) (Resolved) History of inguinal hernia repair (Resolved) History of hemorrhoidectomy (Resolved) History of prostatectomy (Resolved) right ochiectomy (Resolved) History of appendectomy (Resolved) Acute respiratory failure with hypoxia (Resolved) Stool guaiac positive (Resolved) RECOMMENDATIONS: 1. Encourage BiPAP with sleep. Goal to maintain an oxygen saturation at or above 90%. 2. Continue broad-spectrum antimicrobial coverage. 3. Okay to advance diet from my perspective 4. Discontinue stress dose steroids 5. Continue to monitor platelet count 6. Add D5W at low rate, recheck BMP at 1400 7. Possible transfer from the intensive care unit later today pending BMP results IMPRESSIONS: 1. Klebsiella pneumonia septic shock secondary to pyelonephritis with superimposed pulmonary infectious process Patient is growing Klebsiella from blood and urine cultures. Patient did not require pressor therapy following stent placement. This will be discontinued. Patient will also have stress dose steroids discontinued. Patient currently on Levaquin therapy secondary to concerns for thrombocytopenia. 2. Acute hypoxemic respiratory failure/baseline COPD with exacerbation Likely secondary to underlying pulmonary infectious process. Continue current supportive measures with broad-spectrum antimicrobial coverage. Continue scheduled bronchodilators as well. Wean supplemental oxygen to maintain saturations at or above 90%. Continue BiPAP as needed. 3. Acute kidney injury/non-anion gap metabolic acidosis Likely prerenal in etiology with a component of ischemic ATN secondary to #1. We will plan to continue current supportive measures with vasopressor support, if indicated, in an attempt to maintain a mean arterial pressure at or above 65 mmHg. We will continue to monitor urine output accordingly. No current indication for renal replacement therapy. 4. Obstructive sleep apnea Continue noninvasive positive pressure ventilation as ordered. Anticipate patient will refuse therapy as his clinical condition improves. Patient is not very compliant with ARLENE therapy as an outpatient. 5. Paroxysmal atrial fibrillation on Xarelto/thrombocytopenia The patient Xarelto is currently on hold due to the potential need for surgical intervention. Unclear etiology of patient's current thrombocytopenia. May have an element of splenic sequestration versus consumption with gram- negative sepsis. No active bleeding is been noted. 6. CODE STATUS Both Dr. Rendon and Dr. Au spoke with the patient's family. He does have an active DNR CCA on file. However, per their discussion with the patient's family, they are agreeable to the patient being intubated if absolutely necessary. Therefore, the patient's CODE STATUS will be updated to DNR CCA with intubation. 7. Alzheimer's dementia versus acute delirium versus metabolic encephalopathy Patient remains contentious at times. Patient does follow some commands. Patient is reporting significant pain. Will initiate OxyIR for pain control and keep fentanyl for breakthrough. Patient does have an elevated BUN, but hydration is been added today. Continue to monitor closely. Code Visit Inpatient E&M: 23862 Subs Hosp L3
--- NOTE | 2018-07-19 07:48 | PCM.PN.HOSP ---
Patient Problems: Active and Suspected Problems (Last Reviewed 07/15/18 @ 18:01 by Olvin Chopra DO) Renal colic on left side (Acute) Ureterolithiasis (Acute) RICHI (acute kidney injury) (Acute) Severe sepsis (Acute) Severe sepsis (Acute) Pyelonephritis (Acute) Subjective: Patient was seen and examined. Still confused. Alert oriented to self which apparently is his baseline. Urine is still straw-colored with some sediments No fevers seen. Vitals are stable. Received Haldol and fentanyl last night Objective: Physical exam: General: Alert only to self, Cooperative, Confused HEENT: Atraumatic, PERRLA, EOMI, Normocephalic Oral: Dry Mucosa Neck: Supple, - - Right IJ central line Lungs: Diminished - at the lung bases Cardiovascular: Regular rate, Regular Rhythm, Normal S1, Normal S2, No murmurs Abdomen: Bowel Sounds Present, Soft, Non Tender, Non-Distended, No Hepato-splenomegaly, rankin catheter in situ Extremities: No edema Skin: - - Old bruises and scratch murillo Musculoskeletal: No Tenderness to Palpation of Joints or Extremities Lymphatic: No Cervical, Supraclavicular, or Inguinal Adenopathy Neurological: Cranial nerves II-XII grossly intact, Neuro grossly intact Psych/Mental Status: Normal Affect, Appropriate Vitals/I&O's: Vital Signs Temp Pulse Resp BP Pulse Ox 99.3 F H 98 20 H 117/80 98 07/19/18 07:00 07/19/18 07:00 07/19/18 07:00 07/19/18 07:00 07/19/18 07:00 Oxygen Flow Rate (L/min) 3 Oxygen Delivery Method Nasal Cannula Weight: 74 kg Body Mass Index (BMI) 23.7 Finger Stick Blood Glucose 118 Intake and Output for Last 24 Hours 07/17/18 07/18/18 07/19/18 23:59 23:59 23:59 Intake Total 800.8 / 800.8 929 / 929 209.2 / 209.2 Output Total 500 / 500 395 / 395 125 / 125 Balance 300.8 / 300.8 534 / 534 84.2 / 84.2 Microbiology Past 72 Hours 07/16/18 10:10 Blood Culture (Wb) - Arm Right Blood Culture - Preliminary No growth in 48 hours. 07/16/18 09:40 Blood Culture (Wb) - Line Draw Blood Culture - Preliminary No growth in 48 hours. 07/15/18 14:58 Blood Culture (Wb) - Anticubital Left Blood Culture - Final GNR lactose lump inspector 07/15/18 15:05 Blood Culture (Wb) - Right Hand Blood Culture - Final Klebsiella pneumoniae sp pneum 07/15/18 16:11 Urine, Clean Catch Urine Culture - Final Klebsiella pneumoniae sp pneum 07/15/18 16:11 Urine, Clean Catch Urine Culture - Final Klebsiella pneumoniae sp pneum 07/16/18 07:15 Mucosa - Nasopharyngeal Respiratory Panel (PCR) - Final 07/16/18 09:15 Stool C. difficile DNA Amplification - Final 07/16/18 08:15 Urine Catheter - Rankin Streptococcus pneumoniae Antigen (M - Final 07/16/18 08:15 Urine Catheter - Rankin Legionella Antigen - Final Laboratory Results 07/16/18 07:15: Diff Path Review Reviewed 07/17/18 04:55: Diff Path Review Reviewed 07/18/18 04:10: Total Bilirubin 0.90, Direct Bilirubin 0.58 H, AST 1233 H, ALT 717 H, Alkaline Phosphatase 134 H, Total Protein 5.4 L, Albumin 2.2 L, Globulin 3.2 07/18/18 15:45: Heparin-induced Plt Ab Pending 07/19/18 04:30: WBC 16.0 H, RBC 3.99 L, Hgb 10.1 L, Hct 32.4 L, MCV 81.2, MCH 25.3 L, MCHC 31.2 L, RDW 22.2 H, RDW Differential 66.2 H, Plt Count 38 L*, Immature Gran % (Auto) 1.600 H, Neut % (Auto) 92.0 H, Lymph % (Auto) 3.1 L, [place] % (Auto) 3.1, Eos % (Auto) 0.0, Baso % (Auto) 0.2, Absolute Neuts (auto) 14.7 H, Absolute Lymphs (auto) 0.49 L, Total Counted Not Reportable, Nucleated RBC % 4.1, Diff Path Review August, Platelet Estimate MKD DEC, RBC Morphology 1+, Anisocytosis 1+, Microcytosis 1+, Ovalocytes RARE, Schistocytes RARE, Absolute Retic 0.66 07/19/18 04:30: Sodium 150 H, Potassium 5.8 H, Chloride 120 H, Carbon Dioxide 20.0 L, Anion Gap 10, BUN 105 H*, Creatinine 3.27 H, Estim Creat Clear Calc 18.91, Est GFR (MDRD) Af Amer 24 L, Est GFR (MDRD) Non-Af 20 L, BUN/Creatinine Ratio 32.1 H, Glucose 110 H, Calcium 7.3 L Current Medications Acetaminophen (Tylenol) 650 mg PO Q6H PRN PRN PRN Reason: Mild Pain (1-3)/Temp > 100.7 F Last Admin: 07/18/18 21:30 Dose: 650 mg Acetaminophen (Tylenol) 650 mg RECTAL Q4H PRN PRN PRN Reason: Temp greater than 100.9 Last Admin: 07/17/18 04:58 Dose: 650 mg Albuterol Sulfate (Ventolin Aerosols) 2.5 mg INHALATION Q2H PRN PRN PRN Reason: SHORTNESS OF BREATH Last Admin: 07/18/18 15:09 Dose: 2.5 mg Atorvastatin Calcium (Lipitor) 10 mg PO QHS [facility] Last Admin: 07/18/18 21:27 Dose: 10 mg Chlorhexidine Gluconate () 1 each TOPICAL DAILY [facility] Last Admin: 07/19/18 05:35 Dose: 1 each Donepezil HCl (Aricept) 10 mg PO QHS [facility] Last Admin: 07/18/18 21:27 Dose: 10 mg Duloxetine HCl (Cymbalta) 60 mg PO BID [facility] Last Admin: 07/18/18 21:27 Dose: 60 mg Fentanyl Citrate (Sublimaze (100mcg Ampule)) 25 mcg IV Q2H PRN PRN PRN Reason: SEVERE PAIN (6-10/10) Finasteride (Proscar) 5 mg PO 0800 [facility] Last Admin: 07/18/18 09:48 Dose: Not Given Haloperidol Lactate (Haldol) 5 mg IV Q6H PRN PRN PRN Reason: AGITATION Last Admin: 07/19/18 00:19 Dose: 5 mg Pantoprazole Sodium 40 mg/ (Sodium Chloride) 110 mls @ 330 mls/hr IV Q24 [facility] Last Admin: 07/18/18 11:12 Dose: 330 mls/hr Levofloxacin (Levaquin Iv) 750 mg in 150 mls @ 100 mls/hr IV Q48 [facility] Last Admin: 07/18/18 15:52 Dose: 100 mls/hr Dextrose () 1,000 mls @ 60 mls/hr IV .[id number] [facility] Last Admin: 07/19/18 06:15 Dose: 60 mls/hr Lactobacillus Acidophilus (Acidophilus) 1 tablet PO TID [facility] Last Admin: 07/19/18 05:36 Dose: 1 tablet Oxycodone HCl (Oxyir) 5 mg PO Q4H PRN PRN PRN Reason: MILD-MOD PAIN (-08/26) Last Admin: 07/19/18 06:34 Dose: 5 mg Sodium Chloride () 5 - 15 ml IV UD PRN PRN Reason: SALINE FLUSH Last Admin: 07/17/18 16:21 Dose: 10 ml Sodium Chloride () 10 - 40 ml IV UD PRN PRN Reason: MULTILUMEN/HICMAN CATH FLUSH Last Admin: 07/19/18 05:35 Dose: 10 ml Tamsulosin HCl (Flomax) 0.4 mg PO DAILY@1730 [facility] Last Admin: 07/18/18 17:55 Dose: 0.4 mg Medical Necessity - Tobacco Use Smoking Status: Current every day smoker Assessment/Plan All Active Problems (Last Reviewed 07/15/18 @ 18:01 by Olvin Chopra DO) Renal colic on left side (Acute) Ureterolithiasis (Acute) RICHI (acute kidney injury) (Acute) Severe sepsis (Acute) Severe sepsis (Acute) Pyelonephritis (Acute) S/P TURP (status post transurethral resection of prostate) (Resolved) History of inguinal hernia repair (Resolved) History of hemorrhoidectomy (Resolved) History of prostatectomy (Resolved) right ochiectomy (Resolved) History of appendectomy (Resolved) Acute respiratory failure with hypoxia (Resolved) Stool guaiac positive (Resolved) 77 y/o male with multiple co-morbidities admitted on 07/15/18 with septic shock secondary acute left pyelonephritis and obstructing left kidney stone. 1. Klebsiella pneumoniae bacteremia/septic shock secondary to acute complicated UTI, resolved Initial blood cultures showed Klebsiella pneumonia, repeat blood cultures were negative. WBC count improving, now 16,000 from 21,000, blood pressure remains stable, on Levaquin IV(day 5 of antibiotics), continue to monitor 2. Acute hypoxic respiratory failure secondary to possible COPD exacerbation, resolving, Refused on Bipap last night, on prn breathing treatments 3. Klebsiella pneumoniae complicated UTI/pyelonephritis, almost pansensitive, status post left ureteral stent 07/18/18 4. Thrombocytopenia, acute, platelet count remains 38, gradual drop over the last few days, received 1 unit of platelet prior to procedure on 07/18/18 Antibiotics switched to Levaquin from ceftriaxone, HARPER panel pending 5. RICHI, likely post renal, CT of the abdomen and pelvis showed hydroureter/hydronephrosis status post left ureteric stent placement, Cr means about the same, BUN increased to 105 Nephrology consult, trend labs in a.m. 6. Hypernatremia, sodium is 150, secondary to dehydration/RICHI, started on D5W, repeat BMP at 2pm and in am 7. Non-gap metabolic acidosis, secondary to RICHI, will continue to monitor, labs in am 8. Hyperkalemia, likely secondary to RICHI, will trend labs. 9. PAF, off Xarelto 10. DVT PPx- SCDs 11. Disposition: Transfer to PCU today Code Visit Inpatient E&M: 42287 Subs Hosp L3
--- NOTE | 2018-07-19 09:37 | CASEMGMT ---
JULIUS CM Assessment Presentation: Sepsis d/t pyelonephritis. Cultures, 07/18/18- cysto with stent placement Pt is not able to particpate due to confusion. Chart review/PT/OT notes reviewed. Attempted call to ; message left with call back number. Will continue to see if she visits pt today. PCP: Dr. Stephanie Fuchs Specialists: Dr. Rendon Preferred Pharmacy: [facility] Insurance:[facility] Prescription Benefit: yes LNOK: Hellen Parker Living Arrangements: one story home, lives independently with . Independent with ADL's. Transportation: able to drive if needed DME: wheeled walker, rollator, straight cane, toilet side rails, shower chair, grab bars tub/shower HHC: none Patient DC goals: home on dc DC PLAN: undetermined. anticipate home, may benefit from Home Health. Frandy CERDA RN ACM
[2018-07-19] MEDS: DULoxetine Hcl 60 MG Capsule PO ×2 (11:35→21:23)
[2018-07-19] MEDS: Finasteride 5 MG Tablet PO (11:35)
[2018-07-19] MEDS: Acetaminophen 325 MG Tablet 650 MG PO (11:38)
[2018-07-19 12:22] LABS: Pathologist Review Reviewed
[2018-07-19 12:29] LABS: Pathologist Review Reviewed
--- NOTE | 2018-07-19 12:35 | PCM.CONS.R ---
Problem List (1) RICHI (acute kidney injury) Status: Acute Consultation - Renal 07/19/18 PCP/ Referring MD: Requesting physician: Dr Gomez Primary care physician: Stephanie Fuchs MD Reason for Consultation:: RICHI - History of Present Illness History of Present Illness: The patient is a 77 year old M is a 77 yo male patient admitted to hospital few days ago with sepsis. Renal consulted for RICHI CKD stage 3 with baseline creatinine in low 1s. ongoing events include Pyelonephritis with obstructed stone on left kidney, s/p stenting by urology yesterday klebsiella bacteremia likely from UTI on abx as per sensitivity RICHI thrombocytopenia - new onset, HIT antibodies pending AMS - likely related to sepsis patient is currently drowsy, most of history is from charts - Allergies Allergies: Allergies Penicillins Allergy (Severe, Verified 07/05/18 11:08) Anaphylaxis adhesive Allergy (Verified 07/05/18 11:08) Rash Sulfa (Sulfonamide Antibiotics) Allergy (Verified 07/05/18 11:08) Rash lactose Adverse Reaction (Unknown, Verified 07/05/18 11:08) GI UPSET diazepam [From Valium] Adverse Reaction (Verified 07/05/18 11:08) hyper opposite effect desired HYPER OPPOSITE EFFECT DESIRED niacin [From Niaspan Extended-Release] Adverse Reaction (Verified 07/05/18 11:08) low bp LOW BP simvastatin Adverse Reaction (Verified 07/05/18 11:08) Pain in joints - Current Medications Current Medications: Current Medications Acetaminophen (Tylenol) 650 mg PO Q6H PRN PRN PRN Reason: Mild Pain (1-3)/Temp > 100.7 F Last Admin: 07/19/18 11:38 Dose: 650 mg Acetaminophen (Tylenol) 650 mg RECTAL Q4H PRN PRN PRN Reason: Temp greater than 100.9 Last Admin: 07/17/18 04:58 Dose: 650 mg Albuterol Sulfate (Ventolin Aerosols) 2.5 mg INHALATION Q2H PRN PRN PRN Reason: SHORTNESS OF BREATH Last Admin: 07/18/18 15:09 Dose: 2.5 mg Atorvastatin Calcium (Lipitor) 10 mg PO QHS [facility] Last Admin: 07/18/18 21:27 Dose: 10 mg Chlorhexidine Gluconate () 1 each TOPICAL DAILY [facility] Last Admin: 07/19/18 05:35 Dose: 1 each Donepezil HCl (Aricept) 10 mg PO QHS [facility] Last Admin: 07/18/18 21:27 Dose: 10 mg Duloxetine HCl (Cymbalta) 60 mg PO BID [facility] Last Admin: 07/19/18 11:35 Dose: 60 mg Fentanyl Citrate (Sublimaze (100mcg Ampule)) 25 mcg IV Q2H PRN PRN PRN Reason: SEVERE PAIN (6-10/10) Finasteride (Proscar) 5 mg PO 0800 [facility] Last Admin: 07/19/18 11:35 Dose: 5 mg Haloperidol Lactate (Haldol) 5 mg IV Q6H PRN PRN PRN Reason: AGITATION Last Admin: 07/19/18 00:19 Dose: 5 mg Pantoprazole Sodium 40 mg/ (Sodium Chloride) 110 mls @ 330 mls/hr IV Q24 [facility] Last Admin: 07/19/18 12:03 Dose: 330 mls/hr Levofloxacin (Levaquin Iv) 750 mg in 150 mls @ 100 mls/hr IV Q48 [facility] Last Admin: 07/18/18 15:52 Dose: 100 mls/hr Dextrose () 1,000 mls @ 60 mls/hr IV .[id number] [facility] Last Admin: 07/19/18 06:15 Dose: 60 mls/hr Lactobacillus Acidophilus (Acidophilus) 1 tablet PO TID [facility] Last Admin: 07/19/18 05:36 Dose: 1 tablet Oxycodone HCl (Oxyir) 5 mg PO Q4H PRN PRN PRN Reason: MILD-MOD PAIN (1-5/10) Last Admin: 07/19/18 06:34 Dose: 5 mg Sodium Chloride () 5 - 15 ml IV UD PRN PRN Reason: SALINE FLUSH Last Admin: 07/17/18 16:21 Dose: 10 ml Sodium Chloride () 10 - 40 ml IV UD PRN PRN Reason: MULTILUMEN/HICMAN CATH FLUSH Last Admin: 07/19/18 05:35 Dose: 10 ml Tamsulosin HCl (Flomax) 0.4 mg PO DAILY@1730 [facility] Last Admin: 07/18/18 17:55 Dose: 0.4 mg - Past Medical History Past Medical History (Chronic Problems): Chronic Problems (Last Reviewed 07/15/18 @ 18:01 by Olvin Chopra DO) Degenerative joint disease involving multiple joints (Chronic) Paroxysmal atrial fibrillation (Chronic) BPH (benign prostatic hyperplasia) (Chronic) Depression (Chronic) Peripheral arterial occlusive disease (Chronic) Alzheimer's disease (Chronic) Debility (Chronic) 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) Anxiety (Chronic) Neuropathy (Chronic) Chronic kidney disease (Chronic) Chronic diastolic heart failure (Chronic) COPD (chronic obstructive pulmonary disease) (Chronic) DDD (degenerative disc disease), cervical (Chronic) Spondylosis without myelopathy or radiculopathy, cervical region (Chronic) Arterial ischemic stroke (Chronic) CHF (congestive heart failure) (Chronic) diastolic Pulmonary hypertension (Chronic) pacemaker implantation (Chronic) generator change Tobacco abuse (Chronic) AAA (abdominal aortic aneurysm) (Chronic) PVD (peripheral vascular disease) (Chronic) Long-term use of high-risk medication (Chronic) Stage 2 moderate COPD by GOLD classification (Chronic) ARLENE (obstructive sleep apnea) (Chronic) Central sleep apnea (Chronic) S/P PTCA (percutaneous transluminal coronary angioplasty) (Chronic) Cardiomyopathy (Chronic) SSS (sick sinus syndrome) (Chronic) Autonomic dysfunction (Chronic) HLD (hyperlipidemia) (Chronic) PAD (peripheral artery disease) (Chronic) Coronary artery disease (Chronic) S/P LAD and LCx stenting BPH (benign prostatic hypertrophy) with urinary obstruction (Chronic) Depressive disorder (Chronic) HTN (hypertension) (Chronic) Atrial fibrillation (Chronic) GERD (gastroesophageal reflux disease) (Chronic) History of orchiectomy, unilateral (Chronic) Nephrolithiasis (Chronic) Personality disorder (Chronic) - Past Surgical History Surgical History: angioplasty, appendectomy, cholecystectomy, herniorrhaphy, pacemaker implantation, TURP, - - Prostatectomy. orchiectomy. - Social History Smoking Status: Current every day smoker Alcohol: None Drugs: None - Family History Paternal Family History: Family History (Last Reviewed 07/15/18 @ 18:01 by Olvin Chopra DO) Father CAD (coronary artery disease) Mother Breast cancer Arthritis CAD (coronary artery disease) Hypertension Sister CVA (cerebral vascular accident) Diabetes Hypertension Son CAD (coronary artery disease) Hypertension History Items: Heart Disease, Renal Disease Sibling Family History: Family History (Last Reviewed 07/15/18 @ 18:01 by Olvin Chopra DO) Father CAD (coronary artery disease) Mother Breast cancer Arthritis CAD (coronary artery disease) Hypertension Sister CVA (cerebral vascular accident) Diabetes Hypertension Son CAD (coronary artery disease) Hypertension History Items: Diabetes, Heart Disease Offspring Family History: Family History (Last Reviewed 07/15/18 @ 18:01 by Olvin Chopra DO) Father CAD (coronary artery disease) Mother Breast cancer Arthritis CAD (coronary artery disease) Hypertension Sister CVA (cerebral vascular accident) Diabetes Hypertension Son CAD (coronary artery disease) Hypertension History Items: Heart Disease Maternal Family History: Family History (Last Reviewed 07/15/18 @ 18:01 by Olvin Chopra DO) Father CAD (coronary artery disease) Mother Breast cancer Arthritis CAD (coronary artery disease) Hypertension Sister CVA (cerebral vascular accident) Diabetes Hypertension Son CAD (coronary artery disease) Hypertension History Items: Cancer, Heart Disease Review of Systems Unable to obtain accurate/complete ROS d/t: due to AMS Patient Problems: Active and Suspected Problems (Last Reviewed 07/15/18 @ 18:01 by Olvin Chopra DO) Renal colic on left side (Acute) Ureterolithiasis (Acute) RICHI (acute kidney injury) (Acute) Severe sepsis (Acute) Severe sepsis (Acute) Pyelonephritis (Acute) - Physical Exam General: Confused HEENT: Atraumatic, PERRLA, EOMI, Normocephalic Neck: Supple, No JVD, Negative Carotid Bruits Lungs: Clear to auscultation, Normal air movement Cardiovascular: Regular rate, No murmurs Abdomen: Bowel Sounds Present, Soft, Non Tender Extremities: No edema, Capillary Refill Less than 3 Seconds, Cyanosis Skin: No rashes, No breakdown Musculoskeletal: No Tenderness to Palpation of Joints or Extremities Vital Signs Temp Pulse Resp BP Pulse Ox 99.3 F H 98 20 H 117/80 98 07/19/18 07:00 07/19/18 07:00 07/19/18 07:00 07/19/18 07:00 07/19/18 07:00 Oxygen Flow Rate (L/min) 3 Oxygen Delivery Method Nasal Cannula Weight: 74 kg Body Mass Index (BMI) 23.7 Finger Stick Blood Glucose 118 Intake and Output for Last 24 Hours 07/17/18 07/18/18 07/19/18 23:59 23:59 23:59 Intake Total 800.8 / 800.8 929 / 929 209.2 / 209.2 Output Total 500 / 500 395 / 395 125 / 125 Balance 300.8 / 300.8 534 / 534 84.2 / 84.2 Microbiology Past 72 Hours 07/16/18 10:10 Blood Culture - Preliminary Blood Culture (Wb) - Arm Right No growth in 48 hours. 07/16/18 09:40 Blood Culture - Preliminary Blood Culture (Wb) - Line Draw No growth in 48 hours. 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 cocktail lounge manager 07/15/18 15:05 Blood Culture - Final Blood Culture (Wb) - Right Hand Klebsiella pneumoniae sp pneum 07/15/18 16:11 Urine Culture - Final Urine, Clean Catch Klebsiella pneumoniae sp pneum 07/15/18 16:11 Urine Culture - Final Urine, Clean Catch Klebsiella pneumoniae sp pneum 07/16/18 07:15 Respiratory Panel (PCR) - Final Mucosa - Nasopharyngeal 07/16/18 09:15 C. difficile DNA Amplification - Final Stool 07/16/18 08:15 Streptococcus pneumoniae Antigen (M - Final Urine Catheter - Chambers 07/16/18 08:15 Legionella Antigen - Final Urine Catheter - Chambers Laboratory Tests Past 24 Hrs 07/16/18 07/17/18 07/18/18 07:15 04:55 04:10 WBC RBC Hgb Hct MCV MCH MCHC RDW RDW Differential Plt Count Immature Gran % (Auto) Neut % (Auto) Lymph % (Auto) [place] % (Auto) Eos % (Auto) Baso % (Auto) Absolute Neuts (auto) Absolute Lymphs (auto) Total Counted Nucleated RBC % Diff Path Review Reviewed Reviewed Reviewed Platelet Estimate RBC Morphology Anisocytosis Microcytosis Ovalocytes Schistocytes Absolute Retic Sodium Potassium Chloride Carbon Dioxide Anion Gap BUN Creatinine Estim Creat Clear Calc Est GFR (MDRD) Af Amer Est GFR (MDRD) Non-Af BUN/Creatinine Ratio Glucose Calcium Total Bilirubin Direct Bilirubin AST ALT Alkaline Phosphatase Total Protein Albumin Globulin Heparin-induced Plt Ab 07/18/18 07/18/18 07/19/18 04:10 15:45 04:30 WBC 16.0 H RBC 3.99 L Hgb 10.1 L Hct 32.4 L MCV 81.2 MCH 25.3 L MCHC 31.2 L RDW 22.2 H RDW Differential 66.2 H Plt Count 38 L* Immature Gran % (Auto) 1.600 H Neut % (Auto) 92.0 H Lymph % (Auto) 3.1 L [place] % (Auto) 3.1 Eos % (Auto) 0.0 Baso % (Auto) 0.2 Absolute Neuts (auto) 14.7 H Absolute Lymphs (auto) 0.49 L Total Counted Not Reportable Nucleated RBC % 4.1 Diff Path Review Reviewed Platelet Estimate MKD DEC RBC Morphology 1+ Anisocytosis 1+ Microcytosis 1+ Ovalocytes RARE Schistocytes RARE Absolute Retic 0.66 Sodium Potassium Chloride Carbon Dioxide Anion Gap BUN Creatinine Estim Creat Clear Calc Est GFR (MDRD) Af Amer Est GFR (MDRD) Non-Af BUN/Creatinine Ratio Glucose Calcium Total Bilirubin 0.90 Direct Bilirubin 0.58 H AST 1233 H ALT 717 H Alkaline Phosphatase 134 H Total Protein 5.4 L Albumin 2.2 L Globulin 3.2 Heparin-induced Plt Ab Pending 07/19/18 04:30 WBC RBC Hgb Hct MCV MCH MCHC RDW RDW Differential Plt Count Immature Gran % (Auto) Neut % (Auto) Lymph % (Auto) [place] % (Auto) Eos % (Auto) Baso % (Auto) Absolute Neuts (auto) Absolute Lymphs (auto) Total Counted Nucleated RBC % Diff Path Review Platelet Estimate RBC Morphology Anisocytosis Microcytosis Ovalocytes Schistocytes Absolute Retic Sodium 150 H Potassium 5.8 H Chloride 120 H Carbon Dioxide 20.0 L Anion Gap 10 BUN 105 H* Creatinine 3.27 H Estim Creat Clear Calc 18.91 Est GFR (MDRD) Af Amer 24 L Est GFR (MDRD) Non-Af 20 L BUN/Creatinine Ratio 32.1 H Glucose 110 H Calcium 7.3 L Total Bilirubin Direct Bilirubin AST ALT Alkaline Phosphatase Total Protein Albumin Globulin Heparin-induced Plt Ab Assessment/Plan All Active Problems (Last Reviewed 07/15/18 @ 18:01 by Olvin Chopra DO) Renal colic on left side (Acute) Ureterolithiasis (Acute) RICHI (acute kidney injury) (Acute) Severe sepsis (Acute) Severe sepsis (Acute) Pyelonephritis (Acute) S/P TURP (status post transurethral resection of prostate) (Resolved) History of inguinal hernia repair (Resolved) History of hemorrhoidectomy (Resolved) History of prostatectomy (Resolved) right ochiectomy (Resolved) History of appendectomy (Resolved) Acute respiratory failure with hypoxia (Resolved) Stool guaiac positive (Resolved) RICHI CKD stage 3 Baseline creatinine is around 1.3 or so. sustained RICHI, likely ATN in setting of sepsis and klebsiella bacteremia UA consistent with UTI CT abd on admission with left sided hydronephrosis, s/p stenting by urology BP is adequate today, temperatures are borderline acute hepatic injury - likely septic origin thrombocytopenia - ? drug related vs HIT vs sepsis related, low suspicion for TTP Urine output is present but borderline borderline acidosis and hyperkalemia repeat BMP today afternoon treat medically for now d/w family at bedside d/w Dr Hanna
--- NOTE | 2018-07-19 12:41 | CON.PCM_ITS ---
Problem List (1) RICHI (acute kidney injury) Status: Acute Consultation - Renal 07/19/18 PCP/ Referring MD: Requesting physician: Dr Gomez Primary care physician: Stephanie Fuchs MD Reason for Consultation:: RICHI - History of Present Illness History of Present Illness: The patient is a 77 year old M is a 77 yo male patient admitted to hospital few days ago with sepsis. Renal consulted for RICHI CKD stage 3 with baseline creatinine in low 1s. ongoing events include Pyelonephritis with obstructed stone on left kidney, s/p stenting by urology yesterday klebsiella bacteremia likely from UTI on abx as per sensitivity RICHI thrombocytopenia - new onset, HIT antibodies pending AMS - likely related to sepsis patient is currently drowsy, most of history is from charts - Allergies Allergies: Allergies Penicillins Allergy (Severe, Verified 07/05/18 11:08) Anaphylaxis adhesive Allergy (Verified 07/05/18 11:08) Rash Sulfa (Sulfonamide Antibiotics) Allergy (Verified 07/05/18 11:08) Rash lactose Adverse Reaction (Unknown, Verified 07/05/18 11:08) GI UPSET diazepam [From Valium] Adverse Reaction (Verified 07/05/18 11:08) hyper opposite effect desired HYPER OPPOSITE EFFECT DESIRED niacin [From Niaspan Extended-Release] Adverse Reaction (Verified 07/05/18 11:08) low bp LOW BP simvastatin Adverse Reaction (Verified 07/05/18 11:08) Pain in joints - Current Medications Current Medications: Current Medications Acetaminophen (Tylenol) 650 mg PO Q6H PRN PRN PRN Reason: Mild Pain (1-3)/Temp > 100.7 F Last Admin: 07/19/18 11:38 Dose: 650 mg Acetaminophen (Tylenol) 650 mg RECTAL Q4H PRN PRN PRN Reason: Temp greater than 100.9 Last Admin: 07/17/18 04:58 Dose: 650 mg Albuterol Sulfate (Ventolin Aerosols) 2.5 mg INHALATION Q2H PRN PRN PRN Reason: SHORTNESS OF BREATH Last Admin: 07/18/18 15:09 Dose: 2.5 mg Atorvastatin Calcium (Lipitor) 10 mg PO QHS [facility] Last Admin: 07/18/18 21:27 Dose: 10 mg Chlorhexidine Gluconate () 1 each TOPICAL DAILY [facility] Last Admin: 07/19/18 05:35 Dose: 1 each Donepezil HCl (Aricept) 10 mg PO QHS [facility] Last Admin: 07/18/18 21:27 Dose: 10 mg Duloxetine HCl (Cymbalta) 60 mg PO BID [facility] Last Admin: 07/19/18 11:35 Dose: 60 mg Fentanyl Citrate (Sublimaze (100mcg Ampule)) 25 mcg IV Q2H PRN PRN PRN Reason: SEVERE PAIN (6-10/10) Finasteride (Proscar) 5 mg PO 0800 [facility] Last Admin: 07/19/18 11:35 Dose: 5 mg Haloperidol Lactate (Haldol) 5 mg IV Q6H PRN PRN PRN Reason: AGITATION Last Admin: 07/19/18 00:19 Dose: 5 mg Pantoprazole Sodium 40 mg/ (Sodium Chloride) 110 mls @ 330 mls/hr IV Q24 [facility] Last Admin: 07/19/18 12:03 Dose: 330 mls/hr Levofloxacin (Levaquin Iv) 750 mg in 150 mls @ 100 mls/hr IV Q48 [facility] Last Admin: 07/18/18 15:52 Dose: 100 mls/hr Dextrose () 1,000 mls @ 60 mls/hr IV .[id number] [facility] Last Admin: 07/19/18 06:15 Dose: 60 mls/hr Lactobacillus Acidophilus (Acidophilus) 1 tablet PO TID [facility] Last Admin: 07/19/18 05:36 Dose: 1 tablet Oxycodone HCl (Oxyir) 5 mg PO Q4H PRN PRN PRN Reason: MILD-MOD PAIN (1-5/10) Last Admin: 07/19/18 06:34 Dose: 5 mg Sodium Chloride () 5 - 15 ml IV UD PRN PRN Reason: SALINE FLUSH Last Admin: 07/17/18 16:21 Dose: 10 ml Sodium Chloride () 10 - 40 ml IV UD PRN PRN Reason: MULTILUMEN/HICMAN CATH FLUSH Last Admin: 07/19/18 05:35 Dose: 10 ml Tamsulosin HCl (Flomax) 0.4 mg PO DAILY@1730 [facility] Last Admin: 07/18/18 17:55 Dose: 0.4 mg - Past Medical History Past Medical History (Chronic Problems): Chronic Problems (Last Reviewed 07/15/18 @ 18:01 by Olvin Chopra DO) Degenerative joint disease involving multiple joints (Chronic) Paroxysmal atrial fibrillation (Chronic) BPH (benign prostatic hyperplasia) (Chronic) Depression (Chronic) Peripheral arterial occlusive disease (Chronic) Alzheimer's disease (Chronic) Debility (Chronic) 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) Anxiety (Chronic) Neuropathy (Chronic) Chronic kidney disease (Chronic) Chronic diastolic heart failure (Chronic) COPD (chronic obstructive pulmonary disease) (Chronic) DDD (degenerative disc disease), cervical (Chronic) Spondylosis without myelopathy or radiculopathy, cervical region (Chronic) Arterial ischemic stroke (Chronic) CHF (congestive heart failure) (Chronic) diastolic Pulmonary hypertension (Chronic) pacemaker implantation (Chronic) generator change Tobacco abuse (Chronic) AAA (abdominal aortic aneurysm) (Chronic) PVD (peripheral vascular disease) (Chronic) Long-term use of high-risk medication (Chronic) Stage 2 moderate COPD by GOLD classification (Chronic) ARLENE (obstructive sleep apnea) (Chronic) Central sleep apnea (Chronic) S/P PTCA (percutaneous transluminal coronary angioplasty) (Chronic) Cardiomyopathy (Chronic) SSS (sick sinus syndrome) (Chronic) Autonomic dysfunction (Chronic) HLD (hyperlipidemia) (Chronic) PAD (peripheral artery disease) (Chronic) Coronary artery disease (Chronic) S/P LAD and LCx stenting BPH (benign prostatic hypertrophy) with urinary obstruction (Chronic) Depressive disorder (Chronic) HTN (hypertension) (Chronic) Atrial fibrillation (Chronic) GERD (gastroesophageal reflux disease) (Chronic) History of orchiectomy, unilateral (Chronic) Nephrolithiasis (Chronic) Personality disorder (Chronic) - Past Surgical History Surgical History: angioplasty, appendectomy, cholecystectomy, herniorrhaphy, pacemaker implantation, TURP, - - Prostatectomy. orchiectomy. - Social History Smoking Status: Current every day smoker Alcohol: None Drugs: None - Family History Paternal Family History: Family History (Last Reviewed 07/15/18 @ 18:01 by Olvin Chopra DO) Father CAD (coronary artery disease) Mother Breast cancer Arthritis CAD (coronary artery disease) Hypertension Sister CVA (cerebral vascular accident) Diabetes Hypertension Son CAD (coronary artery disease) Hypertension History Items: Heart Disease, Renal Disease Sibling Family History: Family History (Last Reviewed 07/15/18 @ 18:01 by Olvin Chopra DO) Father CAD (coronary artery disease) Mother Breast cancer Arthritis CAD (coronary artery disease) Hypertension Sister CVA (cerebral vascular accident) Diabetes Hypertension Son CAD (coronary artery disease) Hypertension History Items: Diabetes, Heart Disease Offspring Family History: Family History (Last Reviewed 07/15/18 @ 18:01 by Olvin Chopra DO) Father CAD (coronary artery disease) Mother Breast cancer Arthritis CAD (coronary artery disease) Hypertension Sister CVA (cerebral vascular accident) Diabetes Hypertension Son CAD (coronary artery disease) Hypertension History Items: Heart Disease Maternal Family History: Family History (Last Reviewed 07/15/18 @ 18:01 by Olvin Chopra DO) Father CAD (coronary artery disease) Mother Breast cancer Arthritis CAD (coronary artery disease) Hypertension Sister CVA (cerebral vascular accident) Diabetes Hypertension Son CAD (coronary artery disease) Hypertension History Items: Cancer, Heart Disease Review of Systems Unable to obtain accurate/complete ROS d/t: due to AMS Patient Problems: Active and Suspected Problems (Last Reviewed 07/15/18 @ 18:01 by Olvin Chopra DO) Renal colic on left side (Acute) Ureterolithiasis (Acute) RICHI (acute kidney injury) (Acute) Severe sepsis (Acute) Severe sepsis (Acute) Pyelonephritis (Acute) - Physical Exam General: Confused HEENT: Atraumatic, PERRLA, EOMI, Normocephalic Neck: Supple, No JVD, Negative Carotid Bruits Lungs: Clear to auscultation, Normal air movement Cardiovascular: Regular rate, No murmurs Abdomen: Bowel Sounds Present, Soft, Non Tender Extremities: No edema, Capillary Refill Less than 3 Seconds, Cyanosis Skin: No rashes, No breakdown Musculoskeletal: No Tenderness to Palpation of Joints or Extremities Vital Signs Temp Pulse Resp BP Pulse Ox 99.3 F H 98 20 H 117/80 98 07/19/18 07:00 07/19/18 07:00 07/19/18 07:00 07/19/18 07:00 07/19/18 07:00 Oxygen Flow Rate (L/min) 3 Oxygen Delivery Method Nasal Cannula Weight: 74 kg Body Mass Index (BMI) 23.7 Finger Stick Blood Glucose 118 Intake and Output for Last 24 Hours 07/17/18 07/18/18 07/19/18 23:59 23:59 23:59 Intake Total 800.8 / 800.8 929 / 929 209.2 / 209.2 Output Total 500 / 500 395 / 395 125 / 125 Balance 300.8 / 300.8 534 / 534 84.2 / 84.2 Microbiology Past 72 Hours 07/16/18 10:10 Blood Culture - Preliminary Blood Culture (Wb) - Arm Right No growth in 48 hours. 07/16/18 09:40 Blood Culture - Preliminary Blood Culture (Wb) - Line Draw No growth in 48 hours. 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 difficile DNA Amplification - Final Stool 07/16/18 08:15 Streptococcus pneumoniae Antigen (M - Final Urine Catheter - Chambers 07/16/18 08:15 Legionella Antigen - Final Urine Catheter - Chambers Laboratory Tests Past 24 Hrs 07/16/18 07/17/18 07/18/18 07:15 04:55 04:10 WBC RBC Hgb Hct MCV MCH MCHC RDW RDW Differential Plt Count Immature Gran % (Auto) Neut % (Auto) Lymph % (Auto) Haakon % (Auto) Eos % (Auto) Baso % (Auto) Absolute Neuts (auto) Absolute Lymphs (auto) Total Counted Nucleated RBC % Diff Path Review Reviewed Reviewed Reviewed Platelet Estimate RBC Morphology Anisocytosis Microcytosis Ovalocytes Schistocytes Absolute Retic Sodium Potassium Chloride Carbon Dioxide Anion Gap BUN Creatinine Estim Creat Clear Calc Est GFR (MDRD) Af Amer Est GFR (MDRD) Non-Af BUN/Creatinine Ratio Glucose Calcium Total Bilirubin Direct Bilirubin AST ALT Alkaline Phosphatase Total Protein Albumin Globulin Heparin-induced Plt Ab 07/18/18 07/18/18 07/19/18 04:10 15:45 04:30 WBC 16.0 H RBC 3.99 L Hgb 10.1 L Hct 32.4 L MCV 81.2 MCH 25.3 L MCHC 31.2 L RDW 22.2 H RDW Differential 66.2 H Plt Count 38 L* Immature Gran % (Auto) 1.600 H Neut % (Auto) 92.0 H Lymph % (Auto) 3.1 L Haakon % (Auto) 3.1 Eos % (Auto) 0.0 Baso % (Auto) 0.2 Absolute Neuts (auto) 14.7 H Absolute Lymphs (auto) 0.49 L Total Counted Not Reportable Nucleated RBC % 4.1 Diff Path Review Reviewed Platelet Estimate MKD DEC RBC Morphology 1+ Anisocytosis 1+ Microcytosis 1+ Ovalocytes RARE Schistocytes RARE Absolute Retic 0.66 Sodium Potassium Chloride Carbon Dioxide Anion Gap BUN Creatinine Estim Creat Clear Calc Est GFR (MDRD) Af Amer Est GFR (MDRD) Non-Af BUN/Creatinine Ratio Glucose Calcium Total Bilirubin 0.90 Direct Bilirubin 0.58 H AST 1233 H ALT 717 H Alkaline Phosphatase 134 H Total Protein 5.4 L Albumin 2.2 L Globulin 3.2 Heparin-induced Plt Ab Pending 07/19/18 04:30 WBC RBC Hgb Hct MCV MCH MCHC RDW RDW Differential Plt Count Immature Gran % (Auto) Neut % (Auto) Lymph % (Auto) Haakon % (Auto) Eos % (Auto) Baso % (Auto) Absolute Neuts (auto) Absolute Lymphs (auto) Total Counted Nucleated RBC % Diff Path Review Platelet Estimate RBC Morphology Anisocytosis Microcytosis Ovalocytes Schistocytes Absolute Retic Sodium 150 H Potassium 5.8 H Chloride 120 H Carbon Dioxide 20.0 L Anion Gap 10 BUN 105 H* Creatinine 3.27 H Estim Creat Clear Calc 18.91 Est GFR (MDRD) Af Amer 24 L Est GFR (MDRD) Non-Af 20 L BUN/Creatinine Ratio 32.1 H Glucose 110 H Calcium 7.3 L Total Bilirubin Direct Bilirubin AST ALT Alkaline Phosphatase Total Protein Albumin Globulin Heparin-induced Plt Ab Assessment/Plan All Active Problems (Last Reviewed 07/15/18 @ 18:01 by Olvin Chopra DO) Renal colic on left side (Acute) Ureterolithiasis (Acute) RICHI (acute kidney injury) (Acute) Severe sepsis (Acute) Severe sepsis (Acute) Pyelonephritis (Acute) S/P TURP (status post transurethral resection of prostate) (Resolved) History of inguinal hernia repair (Resolved) History of hemorrhoidectomy (Resolved) History of prostatectomy (Resolved) right ochiectomy (Resolved) History of appendectomy (Resolved) Acute respiratory failure with hypoxia (Resolved) Stool guaiac positive (Resolved) RICHI CKD stage 3 Baseline creatinine is around 1.3 or so. sustained RICHI, likely ATN in setting of sepsis and klebsiella bacteremia UA consistent with UTI CT abd on admission with left sided hydronephrosis, s/p stenting by urology BP is adequate today, temperatures are borderline acute hepatic injury - likely septic origin thrombocytopenia - ? drug related vs HIT vs sepsis related, low suspicion for TTP Urine output is present but borderline borderline acidosis and hyperkalemia repeat BMP today afternoon treat medically for now d/w family at bedside d/w Dr Hanna
[2018-07-19 14:16] LABS: Anion Gap 9 (5-15); BUN 115 mg/dL (7-18); BUN/Creat Ratio 35.2 RATIO (10-20); Calcium,Total 7.2 mg/dL (8.5-10.1); Chloride 119 mmol/L (98-107); Creatinine, Serum 3.27 mg/dL (0.70-1.30); EST Glomerular Filtration Rate 20 mL/min (>60); Est Glom Filt Rate - Afr Amer 24 mL/min (>60); Estimated Creatinine Clearance 18.91 ml/min; Glucose 144 mg/dL (74-106); Potassium 5.5 mmol/L (3.5-5.1); Sodium Level 147 mmol/L (136-145)
[2018-07-19] MEDS: Donepezil HCl 10 MG Tablet PO (21:23)
[2018-07-19] MEDS: Atorvastatin Calcium 10 MG Tablet PO (21:23)
[2018-07-20] VITALS (7 sets, daily range): BP systolic 111–137; BP diastolic 64–89; PULSE 71–103; RESP 20; TEMP 36.7–37.8; O2SAT 94–96
[2018-07-20 07:00] LABS: Absolute Lymphocyte Count 1.25 X10^3/ul (0.83-4.51); Basophil# 0.03 X10^3/uL; Basophil% 0.2 % (0-1); Hematocrit 32.8 % (40-54); Hemoglobin 10.5 g/dl (13.0-16.5); Lymphocyte # 1.25 X10^3/ul (4.0); Lymphocyte % 10.1 % (19-41); Mean Corpuscular Hgb 25.6 pg (27.0-32.0); Monocyte# 1.04 X10^3/uL; Monocyte% 8.4 % (0-10); Neutrophil # 9.97 X10^3/uL (2.7-7.7); Neutrophil % 80.7 % (47-70); RBC Distribution Width SD 65.2 fl (35.1-43.9); White Blood Count 12.4 K/mm3 (4.4-11.0)
[2018-07-20 07:02] LABS: Differential Indicated SCAN CRITERIA MET; POSITIVE COUNT YES; POSITIVE DIFFERENTIAL NO; POSITIVE MORPHOLOGY YES; Platelet Count 28 K/mm3 (150-450)
[2018-07-20 07:03] LABS: Absolute Nucleated RBC Count 0.32 10^3/uL (0-5); NRBC Flagged by Analyzer 2.6 % (0-5)
[2018-07-20 07:26] LABS: Anion Gap 8 (5-15); BUN 121 mg/dL (7-18); BUN/Creat Ratio 39.9 RATIO (10-20); Calcium,Total 7.3 mg/dL (8.5-10.1); Chloride 118 mmol/L (98-107); Creatinine, Serum 3.03 mg/dL (0.70-1.30); EST Glomerular Filtration Rate 21 mL/min (>60); Est Glom Filt Rate - Afr Amer 26 mL/min (>60); Estimated Creatinine Clearance 20.41 ml/min; Glucose 108 mg/dL (74-106); Potassium 5.3 mmol/L (3.5-5.1); Sodium Level 146 mmol/L (136-145)
[2018-07-20 07:47] LABS: Anisocytosis 2+; Platelet Estimate MKD DEC (ADEQ)
[2018-07-20 07:48] LABS: Hypochromasia 1+
--- NOTE | 2018-07-20 10:25 | PCM.PN.HOSP ---
Patient Problems: Active and Suspected Problems (Last Reviewed 07/20/18 @ 11:52 by Yovanny Austin MD) Renal colic on left side (Acute) Ureterolithiasis (Acute) RICHI (acute kidney injury) (Acute) Severe sepsis (Acute) Severe sepsis (Acute) Pyelonephritis (Acute) Thrombocytopenia (Acute) Occlusive thrombus (Acute) Subjective: Patient seen and examined. Patient appears more somnolent this morning. Noted to have bruising and cold lower extremities as well as change in the color of the skin with more purpura. Changes were also seen especially on the left upper extremity. Patient's urine output has been marginal. Vitals however has remained stable. CT of the head showed subacute infarct of the posterior medial aspect of the right and left cerebellar hemispheres as well as chronic involutional changes. Bilateral lower extremity arterial and venous Doppler reportedly and preliminarily showed extensive thrombosis of the arteries below the popliteal region as well as bilateral DVTs. Oncology and vascular surgery consulted. Did not recommend any acute intervention or start of anticoagulation Discussed extensively with family; patient was in the palliative care program, his son who is the POA for [facility] readily wants patients to be seen by palliative care team; recommended Hospice and they are agreeable. Hospice was consulted Vitals/I&O's: Vital Signs Temp Pulse Resp BP Pulse Ox 98.4 F 95 20 H 111/64 96 07/20/18 09:10 07/20/18 09:10 07/20/18 09:10 07/20/18 09:10 07/20/18 09:10 Oxygen Flow Rate (L/min) 3 Oxygen Delivery Method Nasal Cannula Weight: 77.1 kg Body Mass Index (BMI) 23.7 Finger Stick Blood Glucose 118 Intake and Output for Last 24 Hours 07/18/18 07/19/18 07/20/18 23:59 23:59 23:59 Intake Total 929 / 929 1423.2 / 1423.2 351 / 351 Output Total 395 / 395 485 / 485 150 / 150 Balance 534 / 534 938.2 / 938.2 201 / 201 General: Confused, Lethargic, - - moaning in pain HEENT: Atraumatic, PERRLA, EOMI, Normocephalic Oral: Dry Mucosa Neck: Supple Lungs: Diminished Cardiovascular: Regular rate, Regular Rhythm, Normal S1, Normal S2, No murmurs Abdomen: Bowel Sounds Present, Soft, Non Tender, Non-Distended, No Hepato-splenomegaly Extremities: - - Bilateral lower extremities and left upper extremity purpura and mottling of skin. Very cold to touch, DP and PT pulses not palpable or dopplable. Skin: No rashes Musculoskeletal: Tenderness - on palpation of bilateral lower extremities. Lymphatic: No Cervical, Supraclavicular, or Inguinal Adenopathy Neurological: - - moaning in pain, lethargic, not oriented to person, place or time Psych/Mental Status: Normal Affect Microbiology Past 72 Hours 07/16/18 10:10 Blood Culture (Wb) - Arm Right Blood Culture - Preliminary No growth in 48 hours. 07/16/18 09:40 Blood Culture (Wb) - Line Draw Blood Culture - Preliminary No growth in 48 hours. 07/15/18 14:58 Blood Culture (Wb) - Anticubital Left Blood Culture - Final GNR lactose eclectic doctor 07/15/18 15:05 Blood Culture (Wb) - Right Hand Blood Culture - Final Klebsiella pneumoniae sp pneum 07/15/18 16:11 Urine, Clean Catch Urine Culture - Final Klebsiella pneumoniae sp pneum 07/15/18 16:11 Urine, Clean Catch Urine Culture - Final Klebsiella pneumoniae sp pneum Laboratory Results 07/18/18 04:10: Diff Path Review Reviewed 07/19/18 04:30: Diff Path Review Reviewed 07/19/18 13:55: Sodium 147 H, Potassium 5.5 H, Chloride 119 H, Carbon Dioxide 19.0 L, Anion Gap 9, BUN 115 H*, Creatinine 3.27 H, Estim Creat Clear Calc 18.91, Est GFR (MDRD) Af Amer 24 L, Est GFR (MDRD) Non-Af 20 L, BUN/Creatinine Ratio 35.2 H, Glucose 144 H, Calcium 7.2 L 07/20/18 06:35: WBC 12.4 H, RBC 4.10 L, Hgb 10.5 L, Hct 32.8 L, MCV 80.0, MCH 25.6 L, MCHC 32.0, RDW 22.0 H, RDW Differential 65.2 H, Plt Count 28 L*, Immature Gran % (Auto) 0.600, Neut % (Auto) 80.7 H, Lymph % (Auto) 10.1 L, [place] % (Auto) 8.4, Eos % (Auto) 0.0, Baso % (Auto) 0.2, Absolute Neuts (auto) 10.0 H, Absolute Lymphs (auto) 1.25, Total Counted Not Reportable, Nucleated RBC % 2.6, Diff Path Review May foll, Platelet Estimate MKD DEC, Hypochromasia 1+, Anisocytosis 2+, Absolute Retic 0.32 07/20/18 06:35: Sodium 146 H, Potassium 5.3 H, Chloride 118 H, Carbon Dioxide 20.0 L, Anion Gap 8, BUN 121 H*, Creatinine 3.03 H, Estim Creat Clear Calc 20.41, Est GFR (MDRD) Af Amer 26 L, Est GFR (MDRD) Non-Af 21 L, BUN/Creatinine Ratio 39.9 H, Glucose 108 H, Calcium 7.3 L Current Medications Acetaminophen (Tylenol) 650 mg PO Q6H PRN PRN PRN Reason: Mild Pain (1-3)/Temp > 100.7 F Last Admin: 07/19/18 11:38 Dose: 650 mg Acetaminophen (Tylenol) 650 mg RECTAL Q4H PRN PRN PRN Reason: Temp greater than 100.9 Last Admin: 07/17/18 04:58 Dose: 650 mg Albuterol Sulfate (Ventolin Aerosols) 2.5 mg INHALATION Q2H PRN PRN PRN Reason: SHORTNESS OF BREATH Last Admin: 07/18/18 15:09 Dose: 2.5 mg Atorvastatin Calcium (Lipitor) 10 mg PO QHS [facility] Last Admin: 07/19/18 21:23 Dose: 10 mg Chlorhexidine Gluconate () 1 each TOPICAL DAILY [facility] Last Admin: 07/20/18 07:55 Dose: Not Given Donepezil HCl (Aricept) 10 mg PO QHS [facility] Last Admin: 07/19/18 21:23 Dose: 10 mg Duloxetine HCl (Cymbalta) 60 mg PO BID [facility] Last Admin: 07/20/18 09:59 Dose: Not Given Finasteride (Proscar) 5 mg PO 0800 [facility] Last Admin: 07/20/18 09:59 Dose: Not Given Pantoprazole Sodium 40 mg/ (Sodium Chloride) 110 mls @ 330 mls/hr IV Q24 [facility] Last Admin: 07/19/18 12:03 Dose: 330 mls/hr Levofloxacin (Levaquin Iv) 750 mg in 150 mls @ 100 mls/hr IV Q48 [facility] Last Admin: 07/18/18 15:52 Dose: 100 mls/hr Dextrose () 1,000 mls @ 60 mls/hr IV .[id number] [facility] Last Admin: 07/19/18 21:29 Dose: 60 mls/hr Lactobacillus Acidophilus (Acidophilus) 1 tablet PO TID [facility] Last Admin: 07/20/18 05:37 Dose: Not Given Oxycodone HCl (Oxyir) 5 mg PO Q4H PRN PRN PRN Reason: MILD-MOD PAIN (1-08/26) Last Admin: 07/19/18 06:34 Dose: 5 mg Sodium Chloride () 5 - 15 ml IV UD PRN PRN Reason: SALINE FLUSH Last Admin: 07/17/18 16:21 Dose: 10 ml Sodium Chloride () 10 - 40 ml IV UD PRN PRN Reason: MULTILUMEN/HICMAN CATH FLUSH Last Admin: 07/20/18 06:36 Dose: 20 ml Tamsulosin HCl (Flomax) 0.4 mg PO DAILY@1730 [facility] Last Admin: 07/19/18 18:59 Dose: Not Given Medical Necessity - Tobacco Use Smoking Status: Current every day smoker Assessment/Plan All Active Problems (Last Reviewed 07/20/18 @ 11:52 by Yovanny Austin MD) Renal colic on left side (Acute) Ureterolithiasis (Acute) RICHI (acute kidney injury) (Acute) Severe sepsis (Acute) Severe sepsis (Acute) Pyelonephritis (Acute) Thrombocytopenia (Acute) Occlusive thrombus (Acute) S/P TURP (status post transurethral resection of prostate) (Resolved) History of inguinal hernia repair (Resolved) History of hemorrhoidectomy (Resolved) History of prostatectomy (Resolved) right ochiectomy (Resolved) History of appendectomy (Resolved) Acute respiratory failure with hypoxia (Resolved) Stool guaiac positive (Resolved) 77 y/o male with multiple co-morbidities admitted on 07/15/18 with septic shock secondary acute left pyelonephritis and obstructing left kidney stone. 1. Acute critical limb ischemia, of bilateral lower extremities, left reportedly worse than right, etiology is multifactorial Vascular surgery consulted, did not recommend intervention except for anticoagulation 2. Acute delirium, worsening secondary to newly diagnosed subacute infarction involving the posterior medial aspect of the left and right cerebellar hemispheres 3. Thrombocytopenia, worsening, multifactorial, likely secondary to HIT, DIC, sepsis Platelet count is now 28. Hematology consulted; did not recommend any intervention- medically futile 4. Klebsiella pneumoniae bacteremia/septic shock secondary to acute complicated UTI, resolved 5. Klebsiella pneumoniae complicated UTI/pyelonephritis, almost pansensitive, status post left ureteral stent 07/18/18 WBC count improved to 12.4, on IV Levaquin 6. Acute hypoxic respiratory failure secondary to possible COPD exacerbation, possible RLL pneumonia, on 3-4L of oxygen 7. RICHI, likely post renal, CT of the abdomen and pelvis showed hydroureter/hydronephrosis status post left ureteric stent placement, Cr means about the same, BUN increased to 121 Nephrology consulted 6. Hypernatremia, slightly improved to 146 7. Non-gap metabolic acidosis, secondary to RICHI 8. Hyperkalemia, likely secondary to RICHI 9. PAF, off Xarelto 10. DVT PPx- SCDs Disposition: DC to inpatient hospice facility Code Visit Inpatient E&M: 27021 Subs Hosp L3
--- NOTE | 2018-07-20 10:28 | PN_ITS ---
Subjective: Patient transferred out of the intensive care unit yesterday. Patient has remained confused overnight per family at the bedside. Patient is denying any pain or shortness of breath, but is not able to hold a conversation at this time. Did discuss with patient's daughter and at the bedside. Patient would likely not be willing to initiate hemodialysis if it were indicated. If hemodialysis were suggested, they would likely elect for palliative measures. General: Confused, Disoriented, - - Restless in the bed. Follows some commands. Does open eyes to voice HEENT: Atraumatic, PERRLA, EOMI, Normocephalic, - - Scleral injection without icterus Oral: Moist Mucosa, No Gingival or Mucosal Lesions/ Ulcerations Neck: Supple, No JVD, No Nodes, Trachea Midline Lungs: No rhonchi, No wheeze, No rales, Diminished, - - Symmetric expansion. No dullness to percussion. Cardiovascular: Normal S1, Normal S2, No murmurs, Irregular Rate, No rub noted, No Gallop Abdomen: Bowel Sounds Present, Soft, Non Tender, Non-Distended Extremities: No cyanosis, Clubbing, Edema Skin: - - No significant change compared to previous Musculoskeletal: No Tenderness to Palpation of Joints or Extremities Lymphatic: No Cervical, Supraclavicular, or Inguinal Adenopathy Neurological: Cranial nerves II-XII grossly intact, Neuro grossly intact Psych/Mental Status: Impulsive, Restless Vital Signs Temp Pulse Resp BP Pulse Ox 36.9 C 95 20 H 111/64 96 07/20/18 09:10 07/20/18 09:10 07/20/18 09:10 07/20/18 09:10 07/20/18 09:10 Oxygen Flow Rate (L/min) 3 Oxygen Delivery Method Nasal Cannula Weight: 77.1 kg Body Mass Index (BMI) 23.7 Finger Stick Blood Glucose 118 Intake and Output for Last 24 Hours 07/18/18 07/19/18 07/20/18 23:59 23:59 23:59 Intake Total 929 / 929 1423.2 / 1423.2 351 / 351 Output Total 395 / 395 485 / 485 150 / 150 Balance 534 / 534 938.2 / 938.2 201 / 201 Labs (Last 48 Hours) 07/16/18 07/17/18 07/18/18 07:15 04:55 04:10 WBC RBC Hgb Hct MCV MCH MCHC RDW RDW Differential Plt Count Immature Gran % (Auto) Neut % (Auto) Lymph % (Auto) [place] % (Auto) Eos % (Auto) Baso % (Auto) Absolute Neuts (auto) Absolute Lymphs (auto) Total Counted Nucleated RBC % Diff Path Review Reviewed Reviewed Reviewed Platelet Estimate RBC Morphology Hypochromasia Anisocytosis Microcytosis Ovalocytes Schistocytes Absolute Retic Sodium Potassium Chloride Carbon Dioxide Anion Gap BUN Creatinine Estim Creat Clear Calc Est GFR (MDRD) Af Amer Est GFR (MDRD) Non-Af BUN/Creatinine Ratio Glucose Calcium Total Bilirubin Direct Bilirubin AST ALT Alkaline Phosphatase Total Protein Albumin Globulin Heparin-induced Plt Ab 07/18/18 07/18/18 07/19/18 04:10 15:45 04:30 WBC 16.0 H RBC 3.99 L Hgb 10.1 L Hct 32.4 L MCV 81.2 MCH 25.3 L MCHC 31.2 L RDW 22.2 H RDW Differential 66.2 H Plt Count 38 L* Immature Gran % (Auto) 1.600 H Neut % (Auto) 92.0 H Lymph % (Auto) 3.[address] [place] % (Auto) 3.1 Eos % (Auto) 0.0 Baso % (Auto) 0.2 Absolute Neuts (auto) 14.7 H Absolute Lymphs (auto) 0.49 L Total Counted Not Reportable Nucleated RBC % 4.1 Diff Path Review Reviewed Platelet Estimate MKD DEC RBC Morphology 1+ Hypochromasia Anisocytosis 1+ Microcytosis 1+ Ovalocytes RARE Schistocytes RARE Absolute Retic 0.66 Sodium Potassium Chloride Carbon Dioxide Anion Gap BUN Creatinine Estim Creat Clear Calc Est GFR (MDRD) Af Amer Est GFR (MDRD) Non-Af BUN/Creatinine Ratio Glucose Calcium Total Bilirubin 0.90 Direct Bilirubin 0.58 H AST 1233 H ALT 717 H Alkaline Phosphatase 134 H Total Protein 5.4 L Albumin 2.2 L Globulin 3.2 Heparin-induced Plt Ab Pending 07/19/18 07/19/18 07/20/18 04:30 13:55 06:35 WBC 12.4 H RBC 4.10 L Hgb 10.5 L Hct 32.8 L MCV 80.0 MCH 25.6 L MCHC 32.0 RDW 22.0 H RDW Differential 65.2 H Plt Count 28 L* Immature Gran % (Auto) 0.600 Neut % (Auto) 80.7 H Lymph % (Auto) 10.[address] [place] % (Auto) 8.4 Eos % (Auto) 0.0 Baso % (Auto) 0.2 Absolute Neuts (auto) 10.0 H Absolute Lymphs (auto) 1.25 Total Counted Not Reportable Nucleated RBC % 2.6 Diff Path Review May foll Platelet Estimate MKD DEC RBC Morphology Hypochromasia 1+ Anisocytosis 2+ Microcytosis Ovalocytes Schistocytes Absolute Retic 0.32 Sodium 150 H 147 H Potassium 5.8 H 5.5 H Chloride 120 H 119 H Carbon Dioxide 20.0 L 19.0 L Anion Gap 10 9 BUN 105 H* 115 H* Creatinine 3.27 H 3.27 H Estim Creat Clear Calc 18.91 18.91 Est GFR (MDRD) Af Amer 24 L 24 L Est GFR (MDRD) Non-Af 20 L 20 L BUN/Creatinine Ratio 32.1 H 35.2 H Glucose 110 H 144 H Calcium 7.3 L 7.2 L Total Bilirubin Direct Bilirubin AST ALT Alkaline Phosphatase Total Protein Albumin Globulin Heparin-induced Plt Ab 07/20/18 06:35 WBC RBC Hgb Hct MCV MCH MCHC RDW RDW Differential Plt Count Immature Gran % (Auto) Neut % (Auto) Lymph % (Auto) [place] % (Auto) Eos % (Auto) Baso % (Auto) Absolute Neuts (auto) Absolute Lymphs (auto) Total Counted Nucleated RBC % Diff Path Review Platelet Estimate RBC Morphology Hypochromasia Anisocytosis Microcytosis Ovalocytes Schistocytes Absolute Retic Sodium 146 H Potassium 5.3 H Chloride 118 H Carbon Dioxide 20.0 L Anion Gap 8 BUN 121 H* Creatinine 3.03 H Estim Creat Clear Calc 20.41 Est GFR (MDRD) Af Amer 26 L Est GFR (MDRD) Non-Af 21 L BUN/Creatinine Ratio 39.9 H Glucose 108 H Calcium 7.3 L Total Bilirubin Direct Bilirubin AST ALT Alkaline Phosphatase Total Protein Albumin Globulin Heparin-induced Plt Ab Microbiology 07/16/18 10:10 Blood Culture (Wb) - Arm Right Blood Culture - Preliminary No growth in 48 hours. 07/16/18 09:40 Blood Culture (Wb) - Line Draw Blood Culture - Preliminary No growth in 48 hours. 07/15/18 14:58 Blood Culture (Wb) - Anticubital Left Blood Culture - Final GNR lactose book trimmer 07/15/18 15:05 Blood Culture (Wb) - Right Hand Blood Culture - Final Klebsiella pneumoniae sp pneum Medical Necessity - Tobacco Use Smoking Status: Current every day smoker Assessment/Plan All Active Problems (Last Reviewed 07/15/18 @ 18:01 by Olvin Chopra DO) Renal colic on left side (Acute) Ureterolithiasis (Acute) RICHI (acute kidney injury) (Acute) Severe sepsis (Acute) Severe sepsis (Acute) Pyelonephritis (Acute) S/P TURP (status post transurethral resection of prostate) (Resolved) History of inguinal hernia repair (Resolved) History of hemorrhoidectomy (Resolved) History of prostatectomy (Resolved) right ochiectomy (Resolved) History of appendectomy (Resolved) Acute respiratory failure with hypoxia (Resolved) Stool guaiac positive (Resolved) RECOMMENDATIONS: 1. Goal to maintain an oxygen saturation at or above 90%. 2. Complete 10-14 days of 3. Okay to advance diet from my perspective 4. Await nephrology recommendations 5. Possible palliative care consult IMPRESSIONS: 1. Klebsiella pneumonia septic shock secondary to pyelonephritis with superimposed pulmonary infectious process Patient is growing Klebsiella from blood and urine cultures. Patient did not require pressor therapy following stent placement. This will be discontinued. Patient will also have stress dose steroids discontinued. Patient currently on Levaquin therapy secondary to concerns for thrombocytopenia. Patient appears to be responding well to this from a hemodynamic standpoint. 2. Acute hypoxemic respiratory failure/baseline COPD with exacerbation Likely secondary to underlying pulmonary infectious process. Continue current supportive measures with broad-spectrum antimicrobial coverage. Continue scheduled bronchodilators as well. Wean supplemental oxygen to maintain saturations at or above 90%. Continue BiPAP as needed. She is currently approaching baseline respiratory status. 3. Acute kidney injury/non-anion gap metabolic acidosis Likely prerenal in etiology with a component of ischemic ATN secondary to #1. Renal function continues to deteriorate. Patient is making some urine, but this does not seem adequate given D5W infusion for hypernatremia and hyperchloremia. Family is stating that they would not initiate hemodialysis. If condition continues to worsen, palliative care measures may be requested. Await nephrology recommendations. 4. Obstructive sleep apnea Continue noninvasive positive pressure ventilation as ordered. Anticipate patient will refuse therapy as his clinical condition improves. Patient is not very compliant with ARLENE therapy as an outpatient. 5. Paroxysmal atrial fibrillation on Xarelto/thrombocytopenia The patient Xarelto is currently on hold due to the potential need for surgical intervention. Unclear etiology of patient's current thrombocytopenia. May have an element of splenic sequestration versus consumption with gram-ne gative sepsis. No active bleeding is been noted. Patient does have lower platelets with renal dysfunction and confusion, but doubt TTP as patient's gram- negative sepsis and uremia would account for most of his symptoms. 6. CODE STATUS Both Dr. Rendon and Dr. Au spoke with the patient's family. He does have an active DNR CCA on file. However, per their discussion with the patient's family, they are agreeable to the patient being intubated if absolutely necessary. Therefore, the patient's CODE STATUS will be updated to DNR CCA with intubation. If dialysis is indicated, palliative measures may be requested. 7. Alzheimer's dementia versus acute delirium versus metabolic encephalopathy Patient remains contentious at times. Patient does follow some commands. Patient is reporting significant pain. Will initiate OxyIR for pain control and keep fentanyl for breakthrough. Patient does have an elevated BUN, but hydration is been added today. Continue to monitor closely. Code Visit Inpatient E&M: [id number] [facility] [place] [facility] L3
--- NOTE | 2018-07-20 10:43 | CT_ITS ---
STUDY: CT BRAIN WITHOUT CONTRAST REASON FOR EXAM: Male, 77 years old. Altered mental status. RADIATION DOSAGE (If Supplied By Facility): CTDIvol = ( 44.99 ) mGy, DLP = ( 762.36 ) mGycm TECHNIQUE: Transaxial CT imaging of the brain was performed without administration of intravenous contrast material. Individualized dose optimization techniques were used for this CT. COMPARISON: Comparison is made with prior study dated June 24, 2018. FINDINGS: Normal soft tissue structures. Normal calvarium. There is mild cerebral atrophy with widening of the extra-axial spaces and ventricular dilatation. There are areas of decreased attenuation within the white matter tracts of the supratentorial brain, consistent with microvascular disease changes. Stable small lacunar infarcts in the basal ganglia and left thalamus. Normal brainstem. There now is evidence of a focal area of the decreased attenuation in the posterior aspect of the right cerebellar hemisphere as well as focal hypodensity in the medial aspect of the left posterior cerebellar hemisphere. This is in keeping with a subacute infarction. There is no intracranial hemorrhage. There are no findings of an acute ischemic infarction. Mucosal thickening of the maxillary sinuses and partial opacification of the ethmoid sinuses. Mucosal thickening of the left sphenoid sinus. CT/Brain/Head without Contrast IMPRESSION: Chronic involutional changes of the brain. 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 Electronically Signed: Stef Carlton, at 11:23 EDT , Service support ,
--- NOTE | 2018-07-20 10:50 | ADU_ITS ---
Reason For Study: limb ischemia Right Velocities Left Velocities Common Femoral Artery, mid = 78.3 cm./sec. Common Femoral Artery, mid = 62.9 cm./sec. Supf Femoral Artery, prox = 75.0 cm./sec. Supf. Femoral Artery, prox = 145.9 cm./sec. Supf Femoral Artery, mid = 115.5 cm./sec. Supf. Femoral Artery, mid = 135.3 cm./sec. Supf Femoral Artery, dist. = 54.4 cm./sec. Supf. Femoral Artery, dist = 96.2 cm./sec. Profunda Femoral Artery = 43.1 cm./sec. Profunda Femoral Artery = 338.5 cm./sec. Popliteal Artery, mid = 113.7 cm./sec. Popliteal Artery, mid = 43.4 cm./sec. Post. Tibial Artery, prox = 31.4 cm./sec. Peroneal Artery, prox = 58.0 cm./sec. Post. Tibial Artery, mid = 25.7 cm./sec. Peroneal Artery, mid = 47.0 cm./sec. Peroneal Artery, prox = 44.6 cm./sec. Peroneal Artery,dist. = 13.9 cm./sec. Peroneal Artery, mid = 16.3 cm./sec. Ant.Tibial Artery, prox = 29.8 cm./sec. No flow can be seen in the Distal [employer]. Ant Tibial Artery, mid = 13.9 cm./sec. No flow can be seen in the distal Peroneal Artery.Ant. Tibial Artery, distal = 16.3 cm./sec. No flow can be seen in the JYOTI. Unable to obtain flow in [employer]. Incidental findings of PTV, Peroneal V, and SoleusIncidental findings of Peroneal V and Soleus V V DVT. DVT. Prelim called to Dr. Austin. Interpretation Summary 1. right leg wiht triphasic flow popliteal and into peroneal. Distl peroneal and AT and PT appear occluded. 2. Left leg with triphasic flow throughout to ankle except PT appears occluded. 3. bilateral calf DVT. Ordering Physician: Tammie Gomez Performed By: Josh Kovacs RVT
[2018-07-20] MEDS: 0.9% Normal Saline 1,000 ML 100 ML IV (11:15)
--- NOTE | 2018-07-20 11:49 | PCM.CONS.GEN ---
Problem List (1) Peripheral arterial occlusive disease Status: Chronic Reason for Consult Date of Consultation: 07/20/18 Reason for Consultation: Mottling and ischemia bilateral legs and left hand History of Present Illness: The patient is a 77 year old M who came in with urosepsis secondary to kidney stone. He has had a stent placed. He was on levo fed in the ICU. He is now on the PCU. Noted some increasing mottling both legs and left hand. Is also had a steady decrease of his platelets since admission. A hit panel has been sent off. He is off pressors at this point but still blood pressure in the lower 100s. Patient has some confusion in appears some Alzheimer's. Some pain or discomfort in the feet. 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 Little bit more mildly up the right leg compared to the left. Difficult to get any signals in the feet. He has good popliteal signals noted. He has palpable radial pulses with the right stronger than the left. He is actively starting to get a duplex of bilateral legs and arms. Vascular consulted for evaluation of this. Patient does have a history of A. fib was on Xarelto but has not resumed. Patient this appears probably either related to the sepsis, the pressors he was on, possibly some underlying peripheral arterial disease, possible hit or whatever is causing the decrease in his platelet. [] Past Medical History Past Medical History (Chronic Problems): Chronic Problems (Last Reviewed 07/15/18 @ 18:01 by Olvin Chopra DO) Degenerative joint disease involving multiple joints (Chronic) Paroxysmal atrial fibrillation (Chronic) BPH (benign prostatic hyperplasia) (Chronic) Depression (Chronic) Peripheral arterial occlusive disease (Chronic) Alzheimer's disease (Chronic) Debility (Chronic) 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) Anxiety (Chronic) Neuropathy (Chronic) Chronic kidney disease (Chronic) Chronic diastolic heart failure (Chronic) COPD (chronic obstructive pulmonary disease) (Chronic) DDD (degenerative disc disease), cervical (Chronic) Spondylosis without myelopathy or radiculopathy, cervical region (Chronic) Arterial ischemic stroke (Chronic) CHF (congestive heart failure) (Chronic) diastolic Pulmonary hypertension (Chronic) pacemaker implantation (Chronic) generator change Tobacco abuse (Chronic) AAA (abdominal aortic aneurysm) (Chronic) PVD (peripheral vascular disease) (Chronic) Long-term use of high-risk medication (Chronic) Stage 2 moderate COPD by GOLD classification (Chronic) ARLENE (obstructive sleep apnea) (Chronic) Central sleep apnea (Chronic) S/P PTCA (percutaneous transluminal coronary angioplasty) (Chronic) Cardiomyopathy (Chronic) SSS (sick sinus syndrome) (Chronic) Autonomic dysfunction (Chronic) HLD (hyperlipidemia) (Chronic) PAD (peripheral artery disease) (Chronic) Coronary artery disease (Chronic) S/P LAD and LCx stenting BPH (benign prostatic hypertrophy) with urinary obstruction (Chronic) Depressive disorder (Chronic) HTN (hypertension) (Chronic) Atrial fibrillation (Chronic) GERD (gastroesophageal reflux disease) (Chronic) History of orchiectomy, unilateral (Chronic) Nephrolithiasis (Chronic) Personality disorder (Chronic) Medical History: Medical History (Last Reviewed 07/20/18 @ 11:52 by Yovanny Austin MD) CHF (congestive heart failure) (Chronic) I50.9 diastolic Pulmonary hypertension (Chronic) I27.20 Tobacco abuse (Chronic) Z72.0 AAA (abdominal aortic aneurysm) (Chronic) I71.4 PVD (peripheral vascular disease) (Chronic) I73.9 Long-term use of high-risk medication (Chronic) Z79.899 Stage 2 moderate COPD by GOLD classification (Chronic) J44.9 ARLENE (obstructive sleep apnea) (Chronic) G47.33 Central sleep apnea (Chronic) G47.31 Cardiomyopathy (Chronic) I42.9 SSS (sick sinus syndrome) (Chronic) I49.5 Autonomic dysfunction (Chronic) G90.9 HLD (hyperlipidemia) (Chronic) E78.5 PAD (peripheral artery disease) (Chronic) I73.9 Coronary artery disease (Chronic) I25.10 S/P LAD and LCx stenting BPH (benign prostatic hypertrophy) with urinary obstruction (Chronic) N40.1, N13.8 Depressive disorder (Chronic) F32.9 HTN (hypertension) (Chronic) I10 Atrial fibrillation (Chronic) I48.91 GERD (gastroesophageal reflux disease) (Chronic) K21.9 Nephrolithiasis (Chronic) Personality disorder (Chronic) F60.9 Acute respiratory failure with hypoxia (Resolved) J96.01 Suspected chronic. Acute hypoxia on admission without respiratory failure. Allergies Penicillins Allergy (Severe, Verified 07/05/18 11:08) Anaphylaxis adhesive Allergy (Verified 07/05/18 11:08) Rash Sulfa (Sulfonamide Antibiotics) Allergy (Verified 07/05/18 11:08) Rash lactose Adverse Reaction (Unknown, Verified 07/05/18 11:08) GI UPSET diazepam [From Valium] Adverse Reaction (Verified 07/05/18 11:08) hyper opposite effect desired HYPER OPPOSITE EFFECT DESIRED niacin [From Niaspan Extended-Release] Adverse Reaction (Verified 07/05/18 11:08) low bp LOW BP simvastatin Adverse Reaction (Verified 07/05/18 11:08) Pain in joints Home Medications: Ambulatory Orders Medication Instructions Recorded Cyanocobalamin [Vitamin B12] 1 tab PO DAILY 06/18/17 Melatonin 10 mg PO QHS 06/18/17 Omeprazole 20 mg PO DAILY 06/18/17 Vit A/Vit C/Vit E/Zinc/Copper 1 cap PO BID 06/18/17 [Preservision Areds Softgel] Duloxetine HCl 60 mg PO BID 03/16/18 Donepezil HCl [Aricept] 10 mg PO QHS 03/22/18 Pregabalin [Lyrica] 300 mg PO QHS 03/22/18 Tamsulosin HCl [Flomax] 0.4 mg PO DAILY@1730 03/22/18 Cholecalciferol (VIT D3) [Vitamin 1,000 unit PO 0800 04/22/18 D3] Oxycodone [Oxyir] 2.5 mg PO QHS 04/22/18 Mineral Oil/Petrolatum,White 1 applic TOPICAL 0600,2200 PRN 04/23/18 [Eucerin] Acetaminophen [Tylenol Tablet] 650 mg PO Q8H PRN 06/17/18 Potassium Chloride [K-Dur] 20 meq PO BID 06/17/18 Rosuvastatin Calcium [Crestor] 5 mg PO QHS 06/17/18 Finasteride [Proscar] 5 mg PO 0800 06/24/18 Prednisone 5 mg PO 0800 06/24/18 Rivaroxaban [Xarelto] 20 mg PO QHS 07/15/18 Surgical History: Surgical History (Last Reviewed 07/20/18 @ 11:52 by Yovanny Austin MD) S/P TURP (status post transurethral resection of prostate) (Resolved) Z90.79 pacemaker implantation (Chronic) generator change History of inguinal hernia repair (Resolved) Z98.890, Z87.19 History of hemorrhoidectomy (Resolved) Z98.890 History of prostatectomy (Resolved) Z98.890, Z90.79 right ochiectomy (Resolved) History of appendectomy (Resolved) Z98.890, Z90.49 S/P PTCA (percutaneous transluminal coronary angioplasty) (Chronic) Z98.61 History of orchiectomy, unilateral (Chronic) Z90.79 Surgical History: angioplasty, appendectomy, cholecystectomy, herniorrhaphy, pacemaker implantation, TURP, - - Prostatectomy. orchiectomy. Lives: Spouse/ Significant Other Smoking Status: Current every day smoker Alcohol: None Drugs: None - *Family History Paternal Family History: Family History (Last Reviewed 07/20/18 @ 11:52 by Yovanny Austin MD) Father CAD (coronary artery disease) Mother Breast cancer Arthritis CAD (coronary artery disease) Hypertension Sister CVA (cerebral vascular accident) Diabetes Hypertension Son CAD (coronary artery disease) Hypertension History Items: Heart Disease, Renal Disease Sibling Family History: Family History (Last Reviewed 07/20/18 @ 11:52 by Yovanny Austin MD) Father CAD (coronary artery disease) Mother Breast cancer Arthritis CAD (coronary artery disease) Hypertension Sister CVA (cerebral vascular accident) Diabetes Hypertension Son CAD (coronary artery disease) Hypertension History Items: Diabetes, Heart Disease Offspring Family History: Family History (Last Reviewed 07/20/18 @ 11:52 by Yovanny Austin MD) Father CAD (coronary artery disease) Mother Breast cancer Arthritis CAD (coronary artery disease) Hypertension Sister CVA (cerebral vascular accident) Diabetes Hypertension Son CAD (coronary artery disease) Hypertension History Items: Heart Disease Maternal Family History: Family History (Last Reviewed 07/20/18 @ 11:52 by Yovanny Austin MD) Father CAD (coronary artery disease) Mother Breast cancer Arthritis CAD (coronary artery disease) Hypertension Sister CVA (cerebral vascular accident) Diabetes Hypertension Son CAD (coronary artery disease) Hypertension History Items: Cancer, Heart Disease Patient Problems: Active and Suspected Problems (Last Reviewed 07/15/18 @ 18:01 by Olvin Chopra DO) Renal colic on left side (Acute) Ureterolithiasis (Acute) RICHI (acute kidney injury) (Acute) Severe sepsis (Acute) Severe sepsis (Acute) Pyelonephritis (Acute) Subjective: Difficult to get any feedback from the patient. There are some confusion. Does not appear alert and oriented at this point. Difficult to try all the questions answered by the family. - Physical Exam General: Confused HEENT: PERRLA Oral: Moist Mucosa Neck: Supple Lungs: Clear to auscultation Cardiovascular: Irregular Rate Abdomen: Soft, Non Tender Extremities: - - He has signals in bilateral popliteal arteries. Difficult to get any pedal signals. Mottling bilateral lower extremities, right toes spared Mottling left fingers Palpable radial pulses with right stronger than the left Skin: - - Mottling both legs and left hand Musculoskeletal: - - does appear to have some tenderness noted. Vital Signs Temp Pulse Resp BP Pulse Ox 98.4 F 95 20 H 111/64 96 07/20/18 09:10 07/20/18 09:10 07/20/18 09:10 07/20/18 09:10 07/20/18 09:10 Oxygen Flow Rate (L/min) 3 Oxygen Delivery Method Nasal Cannula Weight: 169 lb 15.622 oz Body Mass Index (BMI) 23.7 Finger Stick Blood Glucose 118 Intake and Output for Last 24 Hours 07/18/18 07/19/18 07/20/18 23:59 23:59 23:59 Intake Total 929 / 929 1423.2 / 1423.2 351 / 351 Output Total 395 / 395 485 / 485 150 / 150 Balance 534 / 534 938.2 / 938.2 201 / 201 Microbiology Past 72 Hours 07/16/18 10:10 Blood Culture - Preliminary Blood Culture (Wb) - Arm Right No growth in 48 hours. 07/16/18 09:40 Blood Culture - Preliminary Blood Culture (Wb) - Line Draw No growth in 48 hours. 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 07/15/18 15:05 Blood Culture - Final Blood Culture (Wb) - Right Hand Klebsiella pneumoniae sp pneum 07/15/18 16:11 Urine Culture - Final Urine, Clean Catch Klebsiella pneumoniae sp pneum 07/15/18 16:11 Urine Culture - Final Urine, Clean Catch Klebsiella pneumoniae sp pneum Laboratory Tests Past 24 Hrs 07/18/18 07/19/18 07/19/18 04:10 04:30 13:55 WBC RBC Hgb Hct MCV MCH MCHC RDW RDW Differential Plt Count Immature Gran % (Auto) Neut % (Auto) Lymph % (Auto) Hooker % (Auto) Eos % (Auto) Baso % (Auto) Absolute Neuts (auto) Absolute Lymphs (auto) Total Counted Nucleated RBC % Diff Path Review Reviewed Reviewed Platelet Estimate Hypochromasia Anisocytosis Absolute Retic Sodium 147 H Potassium 5.5 H Chloride 119 H Carbon Dioxide 19.0 L Anion Gap 9 BUN 115 H* Creatinine 3.27 H Estim Creat Clear Calc 18.91 Est GFR (MDRD) Af Amer 24 L Est GFR (MDRD) Non-Af 20 L BUN/Creatinine Ratio 35.2 H Glucose 144 H Calcium 7.2 L 07/20/18 07/20/18 06:35 06:35 WBC 12.4 H RBC 4.10 L Hgb 10.5 L Hct 32.8 L MCV 80.0 MCH 25.6 L MCHC 32.0 RDW 22.0 H RDW Differential 65.2 H Plt Count 28 L* Immature Gran % (Auto) 0.600 Neut % (Auto) 80.7 H Lymph % (Auto) 10.1 L Hooker % (Auto) 8.4 Eos % (Auto) 0.0 Baso % (Auto) 0.2 Absolute Neuts (auto) 10.0 H Absolute Lymphs (auto) 1.25 Total Counted Not Reportable Nucleated RBC % 2.6 Diff Path Review May foll Platelet Estimate MKD DEC Hypochromasia 1+ Anisocytosis 2+ Absolute Retic 0.32 Sodium 146 H Potassium 5.3 H Chloride 118 H Carbon Dioxide 20.0 L Anion Gap 8 BUN 121 H* Creatinine 3.03 H Estim Creat Clear Calc 20.41 Est GFR (MDRD) Af Amer 26 L Est GFR (MDRD) Non-Af 21 L BUN/Creatinine Ratio 39.9 H Glucose 108 H Calcium 7.3 L Assessment/Plan All Active Problems (Last Reviewed 07/15/18 @ 18:01 by Olvin Chopra DO) Renal colic on left side (Acute) Ureterolithiasis (Acute) RICHI (acute kidney injury) (Acute) Severe sepsis (Acute) Severe sepsis (Acute) Pyelonephritis (Acute) S/P TURP (status post transurethral resection of prostate) (Resolved) History of inguinal hernia repair (Resolved) History of hemorrhoidectomy (Resolved) History of prostatectomy (Resolved) right ochiectomy (Resolved) History of appendectomy (Resolved) Acute respiratory failure with hypoxia (Resolved) Stool guaiac positive (Resolved) Patient with admitted with urosepsis had a stent placed. Also with been on pressors decreasing platelets and PAD. 1. PAD we will see what his duplex shows. Continue the workup with hematology for the cause of the decreased platelets. He is off pressors at this point. Resume anticoagulation when okay. Based on the palpable radial and good signals on the popliteal no intervention able at this point. Especially with the platelets currently at 28. We will see how he does as the limbs warm up continue with the antibiotics and anticoagulation when able. Discussed with family that he is at increased risk of limb loss of both feet and his left fingers. We will follow as needed we will await for the results of the duplex
[2018-07-20] MEDS: levoFLOXacin IV 750 MG/150 ML BAG 100 MG IV (11:53)
--- NOTE | 2018-07-20 12:11 | CASEMGMT ---
Patient has a Healthcare POA and Healthcare LW in [facility] e-chart. SW printed documents and put them in his paper chart. Erika ESCALERA MSW
--- NOTE | 2018-07-20 13:04 | DCINST_ITS ---
- Discharge Diagnoses Current Active Problems: Current Active and Chronic Problems (Last Reviewed 07/20/18 @ 11:52 by Yovanny Austin MD) Renal colic on left side (Acute) Ureterolithiasis (Acute) RICHI (acute kidney injury) (Acute) Severe sepsis (Acute) Severe sepsis (Acute) Pyelonephritis (Acute) Reason(s) for Visit for Discharge Instructions: fever You will use the following diet at home:: Other - NPO Allergies/Adverse Reactions: Allergies Penicillins Allergy (Severe, Verified 07/05/18 11:08) Anaphylaxis adhesive Allergy (Verified 07/05/18 11:08) Rash Sulfa (Sulfonamide Antibiotics) Allergy (Verified 07/05/18 11:08) Rash lactose Adverse Reaction (Unknown, Verified 07/05/18 11:08) GI UPSET diazepam [From Valium] Adverse Reaction (Verified 07/05/18 11:08) hyper opposite effect desired HYPER OPPOSITE EFFECT DESIRED niacin [From Niaspan Extended-Release] Adverse Reaction (Verified 07/05/18 11:08) low bp LOW BP simvastatin Adverse Reaction (Verified 07/05/18 11:08) Pain in joints Medications to take at Discharge Cyanocobalamin [Vitamin B12] 1 tab PO DAILY 06/18/17 Melatonin 10 mg PO QHS 06/18/17 Omeprazole 20 mg PO DAILY 06/18/17 Vit A/Vit C/Vit E/Zinc/Copper [Preservision Areds Softgel] 1 cap PO BID 06/18/17 Duloxetine HCl 60 mg PO BID 03/16/18 Donepezil HCl [Aricept] 10 mg PO QHS 03/22/18 Pregabalin [Lyrica] 300 mg PO QHS 03/22/18 Tamsulosin HCl [Flomax] 0.4 mg PO DAILY@1730 03/22/18 Cholecalciferol (VIT D3) [Vitamin D3] 1,000 unit PO 0800 04/22/18 Oxycodone [Oxyir] 2.5 mg PO QHS 04/22/18 Mineral Oil/Petrolatum,White [Eucerin] 1 applic TOPICAL 0600,2200 PRN 04/23/18 Acetaminophen [Tylenol Tablet] 650 mg PO Q8H PRN 06/17/18 Potassium Chloride [K-Dur] 20 meq PO BID 06/17/18 Rosuvastatin Calcium [Crestor] 5 mg PO QHS 06/17/18 Finasteride [Proscar] 5 mg PO 0800 06/24/18 Prednisone 5 mg PO 0800 06/24/18 Rivaroxaban [Xarelto] 20 mg PO QHS 07/15/18 Primary Care Physician: Apollo Arango MD [STAFF PHYSICIAN] - Test Results: Test results from this visit will be discussed in further detail at your follow- up appointment, if applicable. Proposed Discharge Date: 07/20/18
--- NOTE | 2018-07-20 13:18 | CASEMGMT ---
Physician spoke with family and they would like Hospice. SW spoke with patient's family and explained how the process works. They verbalized understanding. SW called Hospice and made a referral to [place]. SW also faxed over referral. Erika ESCALERA MSW
--- NOTE | 2018-07-20 13:28 | ONC.CONS.INP ---
Consult Referring Physician: Dr. Soo Hanna. Consult Results: Thrombocytopenia, thrombo-occlusive vascular disease. Subjective Date of Service:: 07/20/18 Chief Complaint: Asked to see Pt for thrombocytopenia. History of Present Illness: 77y.o.man with multiple medical problems including Dementia was admitted with Urosepsis and obstructive uropathy requiring stent placement. He has developed progressive decrease in Platelets since admission so was asked to see Pt. Past Medical History: Chronic Problems (Last Reviewed 07/20/18 @ 11:52 by Yovanny Austin MD) Degenerative joint disease involving multiple joints (Chronic) Paroxysmal atrial fibrillation (Chronic) BPH (benign prostatic hyperplasia) (Chronic) Depression (Chronic) Peripheral arterial occlusive disease (Chronic) Alzheimer's disease (Chronic) Debility (Chronic) 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) Anxiety (Chronic) Neuropathy (Chronic) Chronic kidney disease (Chronic) Chronic diastolic heart failure (Chronic) COPD (chronic obstructive pulmonary disease) (Chronic) DDD (degenerative disc disease), cervical (Chronic) Spondylosis without myelopathy or radiculopathy, cervical region (Chronic) Arterial ischemic stroke (Chronic) CHF (congestive heart failure) (Chronic) diastolic Pulmonary hypertension (Chronic) pacemaker implantation (Chronic) generator change Tobacco abuse (Chronic) AAA (abdominal aortic aneurysm) (Chronic) PVD (peripheral vascular disease) (Chronic) Long-term use of high-risk medication (Chronic) Stage 2 moderate COPD by GOLD classification (Chronic) ARLENE (obstructive sleep apnea) (Chronic) Central sleep apnea (Chronic) S/P PTCA (percutaneous transluminal coronary angioplasty) (Chronic) Cardiomyopathy (Chronic) SSS (sick sinus syndrome) (Chronic) Autonomic dysfunction (Chronic) HLD (hyperlipidemia) (Chronic) PAD (peripheral artery disease) (Chronic) Coronary artery disease (Chronic) S/P LAD and LCx stenting BPH (benign prostatic hypertrophy) with urinary obstruction (Chronic) Depressive disorder (Chronic) HTN (hypertension) (Chronic) Atrial fibrillation (Chronic) GERD (gastroesophageal reflux disease) (Chronic) History of orchiectomy, unilateral (Chronic) Nephrolithiasis (Chronic) Personality disorder (Chronic) Past Medical/Surgical History: Past Medical History - Most Recent Inpatient Visit Past Medical History Start: 07/15/18 17:37 Text: Status: Complete Freq: ONCE Protocol: Document 07/15/18 17:37 EY (Rec: 07/15/18 18:10 EY [id number]) BMI Required to complete PMH What is Patient's BMI 23.0 Past Medical History Unable History Recalled No Query Text:Pt Unable/Family Not Present Neurologic Medical History Hx Stroke/TIA Yes: x7 TIA'S Hx Dementia/Alzheimer's Yes: ALZHEIMERS Hx Parkinson's Disease No Hx Seizures No Hx Multiple Sclerosis No Hx Migraines Yes Cardiac Medical History VTE Present on Admission No Hx of Deep Vein Thrombosis/VTE/PE Yes: DVT Hx Hypertension Yes Hx Chest Pain/Angina Yes Hx Heart Attack Yes: 2006 Hx Cardiac Surgery/Stents/Etc. Yes: 2006, 2007 AT [facility] stents x3 Hx Heart Failure Yes Hx Pacemaker/AICD Yes: 2007 (Pacemaker) replaced 2018 Hx Irregular Heartbeat and/or Afib Yes: A FIB Hx Anticoagulant Therapy Yes: XARELTO Query Text:(Coumadin, Aspirin, Plavix, Xarelto, etc.) Hx Pain in Legs when Walking/Leg Cramps Yes Respiratory Medical History Hx COPD Yes Hx Emphysema No Hx Smoking Yes Smoking Status Current every day smoker Packs Smoked per Day 0.5 Hx Smoking Cessation Counseling No Hx Smoking Exposure Yes Hx Tobacco Use in last 12 months Yes Sent to [facility] Yes Hx of Pipe Smoking Yes Hx Sleep Apnea Yes CPAP No BIPAP Yes STOP Results Positive GI Medical History Hx Ulcer Yes: YRS AGO Hx Hepatitis No Hx Cirrhosis No Hx GI Bleed Yes Hx Unplanned Weight Loss Yes: FTT Genitourinary Medical History Indwelling Catheter in Place on Arrival/ No Admission Hx Renal Disease Yes: STAGE 4 KIDNEY DISEASE, KIDNEY STONES Hx Dialysis No Musculoskeletal History Hx Arthritis Yes: UNSURE OF TYPE GETS CORTISONE INJECTIONS Hx Rheumatoid Arthritis No Endocrine Medical History Hx Diabetes No Hx Thyroid Disease No Hematologic Medical History Hx of Blood Transfusion Yes Hx of Transfusion in last 3 Months No Ever experience any problems with No transfusion(s)? Hx of Preganancy in last 3 Months N/A Nurse Filling Out Transfusion & EYOUNG Questions: Date: 07/15/18 Time: 18:09 Psycho/Social Medical History Hx Depression Yes Hx Anxiety Yes Hx Behavior Disorder No Hx Alcohol Use No Hx Substance Use No Other Medical History Hx Blood Disorders No Hx Anemia No Hx Cancer Yes: SKIN CA ON BACK Hx Drug Resistant Organism Yes: C DIFF Wound/Pressure Injury Present on Arrival No /Admission Query Text:If yes, chart assessment in Shift/Clinical Findings Central Line/PICC/VAD Present on Arrival No /Admission Antibiotics within last 7 days? No Methicillin Resistant Staphylococcus aureus Screening Active MRSA No Risk for Readmission Number of Risk Factors 12 At Risk for Readmission Patient is At Risk For Readmission Patient is eligible for Call Back Y Past Medical History (Last Reviewed 07/20/18 @ 11:52 by Yovanny Austin MD) CHF (congestive heart failure) (Chronic) Pulmonary hypertension (Chronic) Tobacco abuse (Chronic) AAA (abdominal aortic aneurysm) (Chronic) PVD (peripheral vascular disease) (Chronic) Long-term use of high-risk medication (Chronic) Stage 2 moderate COPD by GOLD classification (Chronic) ARLENE (obstructive sleep apnea) (Chronic) Central sleep apnea (Chronic) Cardiomyopathy (Chronic) SSS (sick sinus syndrome) (Chronic) Autonomic dysfunction (Chronic) HLD (hyperlipidemia) (Chronic) PAD (peripheral artery disease) (Chronic) Coronary artery disease (Chronic) BPH (benign prostatic hypertrophy) with urinary obstruction (Chronic) Depressive disorder (Chronic) HTN (hypertension) (Chronic) Atrial fibrillation (Chronic) GERD (gastroesophageal reflux disease) (Chronic) Nephrolithiasis (Chronic) Personality disorder (Chronic) Acute respiratory failure with hypoxia (Resolved) Past Surgical History (Last Reviewed 07/20/18 @ 11:52 by Yovanny Austin MD) S/P TURP (status post transurethral resection of prostate) (Resolved) pacemaker implantation (Chronic) History of inguinal hernia repair (Resolved) History of hemorrhoidectomy (Resolved) History of prostatectomy (Resolved) right ochiectomy (Resolved) History of appendectomy (Resolved) S/P PTCA (percutaneous transluminal coronary angioplasty) (Chronic) History of orchiectomy, unilateral (Chronic) Paternal Family History: Family History (Last Reviewed 07/20/18 @ 11:52 by Yovanny Austin MD) Father CAD (coronary artery disease) Mother Breast cancer Arthritis CAD (coronary artery disease) Hypertension Sister CVA (cerebral vascular accident) Diabetes Hypertension Son CAD (coronary artery disease) Hypertension Family History: Heart Disease, Renal Disease Sibling Family History: Family History (Last Reviewed 07/20/18 @ 11:52 by Yovanny Austin MD) Father CAD (coronary artery disease) Mother Breast cancer Arthritis CAD (coronary artery disease) Hypertension Sister CVA (cerebral vascular accident) Diabetes Hypertension Son CAD (coronary artery disease) Hypertension Family History: Diabetes, Heart Disease Offspring Family History: Family History (Last Reviewed 07/20/18 @ 11:52 by Yovanny Austin MD) Father CAD (coronary artery disease) Mother Breast cancer Arthritis CAD (coronary artery disease) Hypertension Sister CVA (cerebral vascular accident) Diabetes Hypertension Son CAD (coronary artery disease) Hypertension Family History: Heart Disease Maternal Family History: Family History (Last Reviewed 07/20/18 @ 11:52 by Yovanny Austin MD) Father CAD (coronary artery disease) Mother Breast cancer Arthritis CAD (coronary artery disease) Hypertension Sister CVA (cerebral vascular accident) Diabetes Hypertension Son CAD (coronary artery disease) Hypertension Family History: Cancer, Heart Disease - Social History Lives: Spouse/ Significant Other Smoking Status: Current every day smoker Alcohol: None Drugs: None Allergies/Adverse Reactions: Allergy/AdvReac Type Severity Reaction Status Date / Time Penicillins Allergy Severe Anaphylaxis Verified 07/05/18 11:08 adhesive Allergy Rash Verified 07/05/18 11:08 Sulfa (Sulfonamide Allergy Rash Verified 07/05/18 11:08 Antibiotics) lactose AdvReac Unknown GI UPSET Verified 07/05/18 11:08 diazepam [From Valium] AdvReac hyper Verified 07/05/18 11:08 opposite effect desired niacin AdvReac low bp Verified 07/05/18 11:08 [From Niaspan Extended-Release] simvastatin AdvReac Pain in Verified 07/05/18 11:08 joints Review of Systems Constitutional:: Reports: Weakness - Lethargic, cannot converse., Fatigue Vital Signs Height 5 ft 10.08 in Weight: 77.1 kg Weight in Pounds 170.0 lbs Pulse Ox 96 Temperature 98.4 F Pulse Rate 95 Respiratory Rate 20 Blood Pressure [BP] 117/80 Blood Pressure 111/64 Blood Pressure Position [BP] Semi-Fowlers Blood Pressure Position Supine - Physical Exam General: Lethargic HEENT: Atraumatic, Normocephalic Neck:: Supple Cardiac:: Regular rate, Regular rhythm, Normal S1, Normal S2. Negative for: Murmur Lungs: Clear to auscultation - groaning, Excusion symmetrical. Negative for: Rhonchi, Wheezes Extremities:: Diminished peripheral pulses, - - bruises R leg, skin mottled on L leg. Lymphatics:: Negative for: Cervical lymphadenopathy, Supraclavicular lymphadenopathy, Axillary lymphadenopathy Laboratory Data: Microbiology 07/16/18 10:10 Blood Culture - Preliminary Blood Culture (Wb) - Arm Right No growth in 48 hours. 07/16/18 09:40 Blood Culture - Preliminary Blood Culture (Wb) - Line Draw No growth in 48 hours. 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 07/15/18 15:05 Blood Culture - Final Blood Culture (Wb) - Right Hand Klebsiella pneumoniae sp pneum Laboratory Tests 07/20/18 07/20/18 07/19/18 Range/Units 06:35 06:35 13:55 WBC 12.4 H (4.4-11.0) K/mm3 RBC 4.10 L (4.6-6.2) M/mm3 Hgb 10.5 L (13.0-16.5) g/dl Hct 32.8 L (40-54) % MCV 80.0 (80-94) fL MCH 25.6 L (27.0-32.0) pg MCHC 32.0 (32-36) g/gl RDW 22.0 H (11.6-14.6) % RDW Differential 65.2 H (35.1-43.9) fl Plt Count 28 L* (150-450) K/mm3 Immature Gran % (Auto) 0.600 (0.0-0.9) % Neut % (Auto) 80.7 H (47-70) % Lymph % (Auto) 10.1 L (19-41) % [place] % (Auto) 8.4 (0-10) % Eos % (Auto) 0.0 (0-5) % Baso % (Auto) 0.2 (0-1) % Absolute Neuts (auto) 10.0 H (2.0-7.7) X10^3/uL Absolute Lymphs (auto) 1.25 (0.83-4.51) X10^3/ul Total Counted Not Reportable Nucleated RBC % 2.6 (0-5) % Diff Path Review May foll Platelet Estimate MKD DEC (ADEQ) Hypochromasia 1+ Anisocytosis 2+ Absolute Retic 0.32 (0-5) 10^3/uL Sodium 146 H 147 H (136-145) mmol/L Potassium 5.3 H 5.5 H (3.5-5.1) mmol/L Chloride 118 H 119 H (98-107) mmol/L Carbon Dioxide 20.0 L 19.0 L (21.0-32.0) mmol/L Anion Gap 8 9 (5-15) BUN 121 H* 115 H* (7-18) mg/dL Creatinine 3.03 H 3.27 H (0.70-1.30) mg/dL Estim Creat Clear Calc 20.41 18.91 ml/min Est GFR (MDRD) Af Amer 26 L 24 L (>60) mL/min Est GFR (MDRD) Non-Af 21 L 20 L (>60) mL/min BUN/Creatinine Ratio 39.9 H 35.2 H (10-20) RATIO Glucose 108 H 144 H (74-106) mg/dL Calcium 7.3 L 7.2 L (8.5-10.1) mg/dL Diagnostic Data: Diagnostic Data Abdomen/Pelvis CTA 07/15/18 14:34 IMPRESSION: 4 mm track is at the left ureter vesicle junction causing left-sided hydronephrosis and hydroureter with left perinephric stranding. The remainder of the examination is unchanged. Electronically Signed: Stef Carlton, at 15:18 EDT , Service support , Chest X-Ray 07/16/18 08:41 IMPRESSION: Right IJ central venous catheter as above. No pneumothorax. Small amount of right lower lobe airspace disease. Remainder is within normal limits Electronically Signed: Tyler Sharp DO at 9:22 EDT Tel , Service support , Brain CT 07/20/18 10:43 IMPRESSION: Chronic involutional changes of the brain. 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 In a Pt with Dementia, prognosis is poor so Medical interventions may be medically futile. Suggestion: To pursue Hospice care. Thanks. Medications: Prescriptions This Visit Medication Instructions Recorded Rivaroxaban [Xarelto] 20 mg PO QHS 07/15/18 Medications Added to Medication List This Visit Category Date Time Status 0.9% Normal Saline 1,000 ml Med 07/20/18 10:45 Active IV 100 mls/hr fentaNYL (100mcg ampule) [Sublimaze (100mcg ampule)] Med 07/20/18 13:01 Active 12.5 mcg IV Q2H PRN PRN Primary Care Provider: Stephanie Fuchs MD Referring Provider: - Problem List (1) Thrombocytopenia Status: Acute (2) Occlusive thrombus Status: Acute Code Visit Office Visits / Consults: [id number] IP Consult L5
[2018-07-20] MEDS: fentaNYL 100 MCG/2 ML Ampul 12.5 MCG IV (13:33)
--- NOTE | 2018-07-20 13:34 | CON.PCM_ITS ---
Consult Referring Physician: Dr. Soo Hanna. Consult Results: Thrombocytopenia, thrombo-occlusive vascular disease. Subjective Date of Service:: 07/20/18 Chief Complaint: Asked to see Pt for thrombocytopenia. History of Present Illness: 77y.o.man with multiple medical problems including Dementia was admitted with Urosepsis and obstructive uropathy requiring stent placement. He has developed progressive decrease in Platelets since admission so was asked to see Pt. Past Medical History: Chronic Problems (Last Reviewed 07/20/18 @ 11:52 by Yovanny Austin MD) Degenerative joint disease involving multiple joints (Chronic) Paroxysmal atrial fibrillation (Chronic) BPH (benign prostatic hyperplasia) (Chronic) Depression (Chronic) Peripheral arterial occlusive disease (Chronic) Alzheimer's disease (Chronic) Debility (Chronic) 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) Anxiety (Chronic) Neuropathy (Chronic) Chronic kidney disease (Chronic) Chronic diastolic heart failure (Chronic) COPD (chronic obstructive pulmonary disease) (Chronic) DDD (degenerative disc disease), cervical (Chronic) Spondylosis without myelopathy or radiculopathy, cervical region (Chronic) Arterial ischemic stroke (Chronic) CHF (congestive heart failure) (Chronic) diastolic Pulmonary hypertension (Chronic) pacemaker implantation (Chronic) generator change Tobacco abuse (Chronic) AAA (abdominal aortic aneurysm) (Chronic) PVD (peripheral vascular disease) (Chronic) Long-term use of high-risk medication (Chronic) Stage 2 moderate COPD by GOLD classification (Chronic) ARLENE (obstructive sleep apnea) (Chronic) Central sleep apnea (Chronic) S/P PTCA (percutaneous transluminal coronary angioplasty) (Chronic) Cardiomyopathy (Chronic) SSS (sick sinus syndrome) (Chronic) Autonomic dysfunction (Chronic) HLD (hyperlipidemia) (Chronic) PAD (peripheral artery disease) (Chronic) Coronary artery disease (Chronic) S/P LAD and LCx stenting BPH (benign prostatic hypertrophy) with urinary obstruction (Chronic) Depressive disorder (Chronic) HTN (hypertension) (Chronic) Atrial fibrillation (Chronic) GERD (gastroesophageal reflux disease) (Chronic) History of orchiectomy, unilateral (Chronic) Nephrolithiasis (Chronic) Personality disorder (Chronic) Past Medical/Surgical History: Past Medical History - Most Recent Inpatient Visit Past Medical History Start: 07/15/18 17:37 Text: Status: Complete Freq: ONCE Protocol: Document 07/15/18 17:37 EY (Rec: 07/15/18 18:10 EY [id number]) BMI Required to complete PMH What is Patient's BMI 23.0 Past Medical History Unable History Recalled No Query Text:Pt Unable/Family Not Present Neurologic Medical History Hx Stroke/TIA Yes: x7 TIA'S Hx Dementia/Alzheimer's Yes: ALZHEIMERS Hx Parkinson's Disease No Hx Seizures No Hx Multiple Sclerosis No Hx Migraines Yes Cardiac Medical History VTE Present on Admission No Hx of Deep Vein Thrombosis/VTE/PE Yes: DVT Hx Hypertension Yes Hx Chest Pain/Angina Yes Hx Heart Attack Yes: 2006 Hx Cardiac Surgery/Stents/Etc. Yes: 2006, [address] [facility] stents x3 Hx Heart Failure Yes Hx Pacemaker/AICD Yes: 2007 (Pacemaker) replaced 2018 Hx Irregular Heartbeat and/or Afib Yes: A FIB Hx Anticoagulant Therapy Yes: XARELTO Query Text:(Coumadin, Aspirin, Plavix, Xarelto, etc.) Hx Pain in Legs when Walking/Leg Cramps Yes Respiratory Medical History Hx COPD Yes Hx Emphysema No Hx Smoking Yes Smoking Status Current every day smoker Packs Smoked per Day 0.5 Hx Smoking Cessation Counseling No Hx Smoking Exposure Yes Hx Tobacco Use in last 12 months Yes Sent to [facility] Yes Hx of Pipe Smoking Yes Hx Sleep Apnea Yes CPAP No BIPAP Yes STOP Results Positive GI Medical History Hx Ulcer Yes: YRS AGO Hx Hepatitis No Hx Cirrhosis No Hx GI Bleed Yes Hx Unplanned Weight Loss Yes: FTT Genitourinary Medical History Indwelling Catheter in Place on Arrival/ No Admission Hx Renal Disease Yes: STAGE 4 KIDNEY DISEASE, KIDNEY STONES Hx Dialysis No Musculoskeletal History Hx Arthritis Yes: UNSURE OF TYPE GETS CORTISONE INJECTIONS Hx Rheumatoid Arthritis No Endocrine Medical History Hx Diabetes No Hx Thyroid Disease No Hematologic Medical History Hx of Blood Transfusion Yes Hx of Transfusion in last 3 Months No Ever experience any problems with No transfusion(s)? Hx of Preganancy in last 3 Months N/A Nurse Filling Out Transfusion & EYOUNG Questions: Date: 07/15/18 Time: 18:09 Psycho/Social Medical History Hx Depression Yes Hx Anxiety Yes Hx Behavior Disorder No Hx Alcohol Use No Hx Substance Use No Other Medical History Hx Blood Disorders No Hx Anemia No Hx Cancer Yes: SKIN CA ON BACK Hx Drug Resistant Organism Yes: C DIFF Wound/Pressure Injury Present on Arrival No /Admission Query Text:If yes, chart assessment in Shift/Clinical Findings Central Line/PICC/VAD Present on Arrival No /Admission Antibiotics within last 7 days? No Methicillin Resistant Staphylococcus aureus Screening Active MRSA No Risk for Readmission Number of Risk Factors 12 At Risk for Readmission Patient is At Risk For Readmission Patient is eligible for Call Back Y Past Medical History (Last Reviewed 07/20/18 @ 11:52 by Yovanny Austin MD) CHF (congestive heart failure) (Chronic) Pulmonary hypertension (Chronic) Tobacco abuse (Chronic) AAA (abdominal aortic aneurysm) (Chronic) PVD (peripheral vascular disease) (Chronic) Long-term use of high-risk medication (Chronic) Stage 2 moderate COPD by GOLD classification (Chronic) ARLENE (obstructive sleep apnea) (Chronic) Central sleep apnea (Chronic) Cardiomyopathy (Chronic) SSS (sick sinus syndrome) (Chronic) Autonomic dysfunction (Chronic) HLD (hyperlipidemia) (Chronic) PAD (peripheral artery disease) (Chronic) Coronary artery disease (Chronic) BPH (benign prostatic hypertrophy) with urinary obstruction (Chronic) Depressive disorder (Chronic) HTN (hypertension) (Chronic) Atrial fibrillation (Chronic) GERD (gastroesophageal reflux disease) (Chronic) Nephrolithiasis (Chronic) Personality disorder (Chronic) Acute respiratory failure with hypoxia (Resolved) Past Surgical History (Last Reviewed 07/20/18 @ 11:52 by Yovanny Austin MD) S/P TURP (status post transurethral resection of prostate) (Resolved) pacemaker implantation (Chronic) History of inguinal hernia repair (Resolved) History of hemorrhoidectomy (Resolved) History of prostatectomy (Resolved) right ochiectomy (Resolved) History of appendectomy (Resolved) S/P PTCA (percutaneous transluminal coronary angioplasty) (Chronic) History of orchiectomy, unilateral (Chronic) Paternal Family History: Family History (Last Reviewed 07/20/18 @ 11:52 by Yovanny Austin MD) Father CAD (coronary artery disease) Mother Breast cancer Arthritis CAD (coronary artery disease) Hypertension Sister CVA (cerebral vascular accident) Diabetes Hypertension Son CAD (coronary artery disease) Hypertension Family History: Heart Disease, Renal Disease Sibling Family History: Family History (Last Reviewed 07/20/18 @ 11:52 by Yovanny Austin MD) Father CAD (coronary artery disease) Mother Breast cancer Arthritis CAD (coronary artery disease) Hypertension Sister CVA (cerebral vascular accident) Diabetes Hypertension Son CAD (coronary artery disease) Hypertension Family History: Diabetes, Heart Disease Offspring Family History: Family History (Last Reviewed 07/20/18 @ 11:52 by Yovanny Austin MD) Father CAD (coronary artery disease) Mother Breast cancer Arthritis CAD (coronary artery disease) Hypertension Sister CVA (cerebral vascular accident) Diabetes Hypertension Son CAD (coronary artery disease) Hypertension Family History: Heart Disease Maternal Family History: Family History (Last Reviewed 07/20/18 @ 11:52 by Yovanny Austin MD) Father CAD (coronary artery disease) Mother Breast cancer Arthritis CAD (coronary artery disease) Hypertension Sister CVA (cerebral vascular accident) Diabetes Hypertension Son CAD (coronary artery disease) Hypertension Family History: Cancer, Heart Disease - Social History Lives: Spouse/ Significant Other Smoking Status: Current every day smoker Alcohol: None Drugs: None Allergies/Adverse Reactions: Allergy/AdvReac Type Severity Reaction Status Date / Time Penicillins Allergy Severe Anaphylaxis Verified 07/05/18 11:08 adhesive Allergy Rash Verified 07/05/18 11:08 Sulfa (Sulfonamide Allergy Rash Verified 07/05/18 11:08 Antibiotics) lactose AdvReac Unknown GI UPSET Verified 07/05/18 11:08 diazepam [From Valium] AdvReac hyper Verified 07/05/18 11:08 opposite effect desired niacin AdvReac low bp Verified 07/05/18 11:08 [From Niaspan Extended-Release] simvastatin AdvReac Pain in Verified 07/05/18 11:08 joints Review of Systems Constitutional:: Reports: Weakness - Lethargic, cannot converse., Fatigue Vital Signs Height 5 ft 10.08 in Weight: 77.1 kg Weight in Pounds 170.0 lbs Pulse Ox 96 Temperature 98.4 F Pulse Rate 95 Respiratory Rate 20 Blood Pressure [BP] 117/80 Blood Pressure 111/64 Blood Pressure Position [BP] Semi-Fowlers Blood Pressure Position Supine - Physical Exam General: Lethargic HEENT: Atraumatic, Normocephalic Neck:: Supple Cardiac:: Regular rate, Regular rhythm, Normal S1, Normal S2. Negative for: Murmur Lungs: Clear to auscultation - groaning, Excusion symmetrical. Negative for: Rhonchi, Wheezes Extremities:: Diminished peripheral pulses, - - bruises R leg, skin mottled on L leg. Lymphatics:: Negative for: Cervical lymphadenopathy, Supraclavicular lymphadenopathy, Axillary lymphadenopathy Laboratory Data: Microbiology 07/16/18 10:10 Blood Culture - Preliminary Blood Culture (Wb) - Arm Right No growth in 48 hours. 07/16/18 09:40 Blood Culture - Preliminary Blood Culture (Wb) - Line Draw No growth in 48 hours. 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 professional builder 07/15/18 15:05 Blood Culture - Final Blood Culture (Wb) - Right Hand Klebsiella pneumoniae sp pneum Laboratory Tests 07/20/18 07/20/18 07/19/18 Range/Units 06:35 06:35 13:55 WBC 12.4 H (4.4-11.0) K/mm3 RBC 4.10 L (4.6-6.2) M/mm3 Hgb 10.5 L (13.0-16.5) g/dl Hct 32.8 L (40-54) % MCV 80.0 (80-94) fL MCH 25.6 L (27.0-32.0) pg MCHC 32.0 (32-36) g/gl RDW 22.0 H (11.6-14.6) % RDW Differential 65.2 H (35.1-43.9) fl Plt Count 28 L* (150-450) K/mm3 Immature Gran % (Auto) 0.600 (0.0-0.9) % Neut % (Auto) 80.7 H (47-70) % Lymph % (Auto) 10.1 L (19-41) % [place] % (Auto) 8.4 (0-10) % Eos % (Auto) 0.0 (0-5) % Baso % (Auto) 0.2 (0-1) % Absolute Neuts (auto) 10.0 H (2.0-7.7) X10^3/uL Absolute Lymphs (auto) 1.25 (0.83-4.51) X10^3/ul Total Counted Not Reportable Nucleated RBC % 2.6 (0-5) % Diff Path Review May foll Platelet Estimate MKD DEC (ADEQ) Hypochromasia 1+ Anisocytosis 2+ Absolute Retic 0.32 (0-5) 10^3/uL Sodium 146 H 147 H (136-145) mmol/L Potassium 5.3 H 5.5 H (3.5-5.1) mmol/L Chloride 118 H 119 H (98-107) mmol/L Carbon Dioxide 20.0 L 19.0 L (21.0-32.0) mmol/L Anion Gap 8 9 (5-15) BUN 121 H* 115 H* (7-18) mg/dL Creatinine 3.03 H 3.27 H (0.70-1.30) mg/dL Estim Creat Clear Calc 20.41 18.91 ml/min Est GFR (MDRD) Af Amer 26 L 24 L (>60) mL/min Est GFR (MDRD) Non-Af 21 L 20 L (>60) mL/min BUN/Creatinine Ratio 39.9 H 35.2 H (10-20) RATIO Glucose 108 H 144 H (74-106) mg/dL Calcium 7.3 L 7.2 L (8.5-10.1) mg/dL Diagnostic Data: Diagnostic Data Abdomen/Pelvis CTA 07/15/18 14:34 IMPRESSION: 4 mm track is at the left ureter vesicle junction causing left-sided hydronephrosis and hydroureter with left perinephric stranding. The remainder of the examination is unchanged. Electronically Signed: Stef Carlton, at 15:18 EDT , Service support , Chest X-Ray 07/16/18 08:41 IMPRESSION: Right IJ central venous catheter as above. No pneumothorax. Small amount of right lower lobe airspace disease. Remainder is within normal limits Electronically Signed: Tyler Sharp DO at 9:22 EDT Tel , Service support , Brain CT 07/20/18 10:43 IMPRESSION: Chronic involutional changes of the brain. 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 In a Pt with Dementia, prognosis is poor so Medical interventions may be medically futile. Suggestion: To pursue Hospice care. Thanks. Medications: Prescriptions This Visit Medication Instructions Recorded Rivaroxaban [Xarelto] 20 mg PO QHS 07/15/18 Medications Added to Medication List This Visit Category Date Time Status 0.9% Normal Saline 1,000 ml Med 07/20/18 10:45 Active IV 100 mls/hr fentaNYL (100mcg ampule) [Sublimaze (100mcg ampule)] Med 07/20/18 13:01 Active 12.5 mcg IV Q2H PRN PRN Primary Care Provider: Stephanie Fuchs MD Referring Provider: - Problem List (1) Thrombocytopenia Status: Acute (2) Occlusive thrombus Status: Acute Code Visit Office Visits / Consults: [id number] IP Consult L5
[2018-07-20 13:53] LABS: Pathologist Review Reviewed
--- NOTE | 2018-07-20 14:47 | CASEMGMT ---
Nehemias from Hospice here with pt/family at this time. She is updated on pt condition and aware that Dr. Mendez would like Hospice [facility] at this time, voices understanding. Rebecca MADRID CM
--- NOTE | 2018-07-20 14:59 | CHAPLAIN ---
Type of Pastoral Visit _x__ Initial Visit ___ Follow-up Visit ___ On-call Visit ___ General Patient Visit ___ Spiritual Assessment ___ Family Conference ___ Bereavement ___ Rapid Response ___ Code Blue ___ Other (describe below) Pastoral Care Referral From ___ Patient _x__ Family ___ Nurse ___ Physician ___ Mink Farmer ___ Residential Leasing Agent ___ Other (describe below) Sacrament/Intervention ___ Active listening ___ Anointing ___ Hoahaoism ___ Bereavement ___ Communion ___ Tammy exploration ___ ___ Life review ___ Prayer ___ Reconciliation ___ Sacrament of Sick _x__ Supportive presence ___ Wedding ___ Other (describe below) Pastoral Comments introduced self to family; [facility] hospice had just arrived to meet with family about decisions; offered support as desired in near future
[2018-07-20] MEDS: fentaNYL 100 MCG/2 ML Ampul 25 MCG IV (15:43)
--- NOTE | 2018-07-20 16:45 | PCM.DC.SUM ---
Discharge Date and Diagnosis Date of Admission: 07/15/18 Date of Discharge: 07/20/18 - Primary Discharge Diagnosis Active and Suspected Problems (Last Reviewed 07/20/18 @ 11:52 by Yovanny Austin MD) Acute critical limb ischemia Acute delirium Subacute CVA Left ureteric stone Septic shock Klebsiella pneumonia bacteremia Acute complicated Klebsiella UTI/pyelonephritis Acute hypoxic respiratory failure Possible COPD exacerbation Possible right lower lobe pneumonia likely gram-negative Acute kidney injury, post renal/ATN Hypernatremia Non-gap metabolic acidosis Hyperkalemia - Secondary Discharge Diagnosis Chronic Problems (Last Reviewed 07/20/18 @ 11:52 by Yovanny Austin MD) Degenerative joint disease involving multiple joints (Chronic) Paroxysmal atrial fibrillation (Chronic) BPH (benign prostatic hyperplasia) (Chronic) Depression (Chronic) Peripheral arterial occlusive disease (Chronic) Alzheimer's disease (Chronic) Debility (Chronic) 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) Anxiety (Chronic) Neuropathy (Chronic) Chronic kidney disease (Chronic) Chronic diastolic heart failure (Chronic) COPD (chronic obstructive pulmonary disease) (Chronic) DDD (degenerative disc disease), cervical (Chronic) Spondylosis without myelopathy or radiculopathy, cervical region (Chronic) Arterial ischemic stroke (Chronic) CHF (congestive heart failure) (Chronic) diastolic Pulmonary hypertension (Chronic) pacemaker implantation (Chronic) generator change Tobacco abuse (Chronic) AAA (abdominal aortic aneurysm) (Chronic) PVD (peripheral vascular disease) (Chronic) Long-term use of high-risk medication (Chronic) Stage 2 moderate COPD by GOLD classification (Chronic) ARLENE (obstructive sleep apnea) (Chronic) Central sleep apnea (Chronic) S/P PTCA (percutaneous transluminal coronary angioplasty) (Chronic) Cardiomyopathy (Chronic) SSS (sick sinus syndrome) (Chronic) Autonomic dysfunction (Chronic) HLD (hyperlipidemia) (Chronic) PAD (peripheral artery disease) (Chronic) Coronary artery disease (Chronic) S/P LAD and LCx stenting BPH (benign prostatic hypertrophy) with urinary obstruction (Chronic) Depressive disorder (Chronic) HTN (hypertension) (Chronic) Atrial fibrillation (Chronic) GERD (gastroesophageal reflux disease) (Chronic) History of orchiectomy, unilateral (Chronic) Nephrolithiasis (Chronic) Personality disorder (Chronic) Hospital Course and Treatment Imaging Results: Clinical Impression(s) from Imaging Studies Abdomen/Pelvis CTA 07/15/18 14:34 IMPRESSION: 4 mm track is at the left ureter vesicle junction causing left-sided hydronephrosis and hydroureter with left perinephric stranding. The remainder of the examination is unchanged. Electronically Signed: Stef Carlton, at 15:18 EDT , Service support , Chest X-Ray 07/15/18 14:46 IMPRESSION: Increased markings at the left lung base with areas of confluence and blunting of the left cardiac phrenic angle. Early infiltrate and/or atelectasis should be excluded. Electronically Signed: Stef Carlton, at 15:02 EDT , Service support , Chest X-Ray 07/16/18 03:50 IMPRESSION: Right basilar airspace consolidation, atelectasis and small pleural effusion possibly representing pneumonia. Electronically Signed: Bree Agarwal MD at 4:58 EDT , Service support , Chest X-Ray 07/16/18 06:31 IMPRESSION: Right basilar airspace consolidation and/or subsegmental atelectasis. Electronically Signed: Bree Agarwal MD at 8:09 EDT , Service support , Chest X-Ray 07/16/18 08:41 IMPRESSION: Right IJ central venous catheter as above. No pneumothorax. Small amount of right lower lobe airspace disease. Remainder is within normal limits Electronically Signed: Tyler Sharp DO at 9:22 EDT Tel , Service support , Brain CT 07/20/18 10:43 IMPRESSION: Chronic involutional changes of the brain. 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 Electronically Signed: Stef Carlton, at 11:23 EDT , Service support , 07/20/18 10:43 Brain/Head without Contrast [CT] Urgent Hematology Vascular surgery Critical care Urology Operations: None Summary of Care Provided: 77 y/o male with multiple co-morbidities admitted on 07/15/18 with septic shock secondary acute left pyelonephritis and obstructing left kidney stone. 1. Acute critical limb ischemia, of bilateral lower extremities, left reportedly worse than right, etiology is multifactorial Vascular surgery consulted, did not recommend intervention except for anticoagulation 2. Acute delirium, worsening secondary to newly diagnosed subacute infarction involving the posterior medial aspect of the left and right cerebellar hemispheres 3. Thrombocytopenia, worsening, multifactorial, likely secondary to likely HIT, DIC, sepsis Platelet count at discharge was 28. Hematology consulted; did not recommend any intervention- medically futile 4. Klebsiella pneumoniae bacteremia/septic shock secondary to acute complicated UTI, resolved 5. Klebsiella pneumoniae complicated UTI/pyelonephritis, almost pansensitive, status post left ureteral stent 07/18/18 WBC count improved to 12.4, was on IV Levaquin 6. Acute hypoxic respiratory failure secondary to possible COPD exacerbation, possible RLL pneumonia, on 3-4L of oxygen 7. RICHI, likely post renal, CT of the abdomen and pelvis showed hydroureter/hydronephrosis status post left ureteric stent placement, Cr means about the same, BUN increased to 121 Nephrology consulted, family did not want dialysis 6. Hypernatremia, slightly improved to 146 at discharge 7. Non-gap metabolic acidosis, secondary to RICHI 8. Hyperkalemia, likely secondary to RICHI 9. PAF, off Xarelto Family wanted Palliative care/Hospice - discharged to inpatient Hospice facility Subjective: See progress note of the day Objective: See progress note of the day - Physical Exam Vital Signs Temp Pulse Resp BP Pulse Ox 100.0 F H 99 20 H 137/89 H 96 07/20/18 15:00 07/20/18 15:00 07/20/18 15:00 07/20/18 15:00 07/20/18 15:00 Oxygen Flow Rate (L/min) 4 Oxygen Delivery Method Nasal Cannula Weight: 77.1 kg Body Mass Index (BMI) 23.7 Finger Stick Blood Glucose 118 Intake and Output for Last 24 Hours 07/18/18 07/19/18 07/20/18 23:59 23:59 23:59 Intake Total 929 / 929 1423.2 / 1423.2 795 / 795 Output Total 395 / 395 485 / 485 350 / 350 Balance 534 / 534 938.2 / 938.2 445 / 445 Microbiology Past 72 Hours 07/16/18 10:10 Blood Culture - Preliminary Blood Culture (Wb) - Arm Right No growth in 48 hours. 07/16/18 09:40 Blood Culture - Preliminary Blood Culture (Wb) - Line Draw No growth in 48 hours. 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 shoe stock associate 07/15/18 15:05 Blood Culture - Final Blood Culture (Wb) - Right Hand Klebsiella pneumoniae sp pneum Laboratory Tests Past 24 Hrs 07/20/18 07/20/18 06:35 06:35 WBC 12.4 H RBC 4.10 L Hgb 10.5 L Hct 32.8 L MCV 80.0 MCH 25.6 L MCHC 32.0 RDW 22.0 H RDW Differential 65.2 H Plt Count 28 L* Immature Gran % (Auto) 0.600 Neut % (Auto) 80.7 H Lymph % (Auto) 10.1 L [place] % (Auto) 8.4 Eos % (Auto) 0.0 Baso % (Auto) 0.2 Absolute Neuts (auto) 10.0 H Absolute Lymphs (auto) 1.25 Total Counted Not Reportable Nucleated RBC % 2.6 Diff Path Review Reviewed Platelet Estimate MKD DEC Hypochromasia 1+ Anisocytosis 2+ Absolute Retic 0.32 Sodium 146 H Potassium 5.3 H Chloride 118 H Carbon Dioxide 20.0 L Anion Gap 8 BUN 121 H* Creatinine 3.03 H Estim Creat Clear Calc 20.41 Est GFR (MDRD) Af Amer 26 L Est GFR (MDRD) Non-Af 21 L BUN/Creatinine Ratio 39.9 H Glucose 108 H Calcium 7.3 L Discharge Diet: - - NPO Home Medications: Medications to take at Discharge Cyanocobalamin [Vitamin B12] 1 tab PO DAILY 06/18/17 Melatonin 10 mg PO QHS 06/18/17 Omeprazole 20 mg PO DAILY 06/18/17 Vit A/Vit C/Vit E/Zinc/Copper [Preservision Areds Softgel] 1 cap PO BID 06/18/17 Duloxetine HCl 60 mg PO BID 03/16/18 Donepezil HCl [Aricept] 10 mg PO QHS 03/22/18 Pregabalin [Lyrica] 300 mg PO QHS 03/22/18 Tamsulosin HCl [Flomax] 0.4 mg PO DAILY@1730 03/22/18 Cholecalciferol (VIT D3) [Vitamin D3] 1,000 unit PO 0800 04/22/18 Oxycodone [Oxyir] 2.5 mg PO QHS 04/22/18 Mineral Oil/Petrolatum,White [Eucerin] 1 applic TOPICAL 0600,2200 PRN 04/23/18 Acetaminophen [Tylenol Tablet] 650 mg PO Q8H PRN 06/17/18 Potassium Chloride [K-Dur] 20 meq PO BID 06/17/18 Rosuvastatin Calcium [Crestor] 5 mg PO QHS 06/17/18 Finasteride [Proscar] 5 mg PO 0800 06/24/18 Prednisone 5 mg PO 0800 06/24/18 Rivaroxaban [Xarelto] 20 mg PO QHS 07/15/18 Primary Care Physician: Apollo Arango MD [STAFF PHYSICIAN] - Disposition: Hospice Medical Facility Minutes spent on discharge:: 45 Patient Condition:: Critical Medical Necessity - Tobacco Use Smoking Status: Current every day smoker Tobacco Use: Non-smoker Meaningful Use Info Meaningful Use Diagnoses (Choose all that apply): Ischemic CVA - CVA Therapy Assessed for PT,OT and/or ST?: No Reason therapy not assessed?: Hospice - Ischemic Stroke Antithrombotic order at d/c?: No Reason antithrombotic not ordered: Hospice Dx of Atrial fib/flutter?: Yes Anticoagulant at discharge?: No Reason anticoagulant not ordered: Hospice Statins at discharge?: No Reason Statin not ordered: Hospice Primary Dx Acute Ischemic CVA?: No IV tPA ordered during stay?: No Reason IV t-PA not ordered: Hospice Code Visit Inpatient E&M: [id number] Disch Hosp
--- NOTE | 2018-07-20 18:45 | PCM.PN.REN ---
Subjective: Pt is obtunded. Family are meeting with the hospice team . Pt might go for hospice care - Physical Exam General: Lethargic HEENT: Atraumatic Oral: Moist Mucosa Neck: Supple Lungs: Diminished, Rhonchi Cardiovascular: Regular rate, Regular Rhythm, Normal S1, Normal S2 Abdomen: Bowel Sounds Present, Soft Extremities: No edema Skin: No rashes Musculoskeletal: No Tenderness to Palpation of Joints or Extremities Lymphatic: No Cervical, Supraclavicular, or Inguinal Adenopathy Vital Signs Temp Pulse Resp BP Pulse Ox 100.0 F H 99 20 H 137/89 H 96 07/20/18 15:00 07/20/18 15:00 07/20/18 15:00 07/20/18 15:00 07/20/18 15:00 Oxygen Flow Rate (L/min) 4 Oxygen Delivery Method Nasal Cannula Weight: 77.1 kg Body Mass Index (BMI) 23.7 Finger Stick Blood Glucose 118 Intake and Output for Last 24 Hours 07/18/18 07/19/18 07/20/18 23:59 23:59 23:59 Intake Total 929 / 929 1423.2 / 1423.2 795 / 795 Output Total 395 / 395 485 / 485 350 / 350 Balance 534 / 534 938.2 / 938.2 445 / 445 Microbiology Past 72 Hours 07/16/18 10:10 Blood Culture - Preliminary Blood Culture (Wb) - Arm Right No growth in 48 hours. 07/16/18 09:40 Blood Culture - Preliminary Blood Culture (Wb) - Line Draw No growth in 48 hours. 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 crtts 07/15/18 15:05 Blood Culture - Final Blood Culture (Wb) - Right Hand Klebsiella pneumoniae sp pneum Laboratory Tests Past 24 Hrs 07/20/18 07/20/18 06:35 06:35 WBC 12.4 H RBC 4.10 L Hgb 10.5 L Hct 32.8 L MCV 80.0 MCH 25.6 L MCHC 32.0 RDW 22.0 H RDW Differential 65.2 H Plt Count 28 L* Immature Gran % (Auto) 0.600 Neut % (Auto) 80.7 H Lymph % (Auto) 10.1 L [place] % (Auto) 8.4 Eos % (Auto) 0.0 Baso % (Auto) 0.2 Absolute Neuts (auto) 10.0 H Absolute Lymphs (auto) 1.25 Total Counted Not Reportable Nucleated RBC % 2.6 Diff Path Review Reviewed Platelet Estimate MKD DEC Hypochromasia 1+ Anisocytosis 2+ Absolute Retic 0.32 Sodium 146 H Potassium 5.3 H Chloride 118 H Carbon Dioxide 20.0 L Anion Gap 8 BUN 121 H* Creatinine 3.03 H Estim Creat Clear Calc 20.41 Est GFR (MDRD) Af Amer 26 L Est GFR (MDRD) Non-Af 21 L BUN/Creatinine Ratio 39.9 H Glucose 108 H Calcium 7.3 L Medical Necessity - Tobacco Use Smoking Status: Current every day smoker Tobacco Use: Non-smoker Assessment/Plan All Active Problems (Last Reviewed 07/20/18 @ 11:52 by Yovanny Austin MD) Renal colic on left side (Acute) Ureterolithiasis (Acute) RICHI (acute kidney injury) (Acute) Severe sepsis (Acute) Severe sepsis (Acute) Pyelonephritis (Acute) Thrombocytopenia (Acute) Occlusive thrombus (Acute) S/P TURP (status post transurethral resection of prostate) (Resolved) History of inguinal hernia repair (Resolved) History of hemorrhoidectomy (Resolved) History of prostatectomy (Resolved) right ochiectomy (Resolved) History of appendectomy (Resolved) Acute respiratory failure with hypoxia (Resolved) Stool guaiac positive (Resolved) 1- RICHI. Cr is stable.BUN 121. UOP is 485. RICHI is from [facility] pt seems obtunded from uremia. [employer]GAL [employer]CRETARY is indicated but family is going for hospice care 2- Acidosis. from RICHI. Mild. 3- hyperkalemia: from RICHI. K is 5.3. Will treat medically if the patient declined hospice 4- sepsis from Klebsiella bacteremia . Abx as per ID 5- Obstructive ureter stone.with hydro. s/p stent placement Renal team will continue to follow if family declined hospice Please call if any question Prem Lo MD
[2018-07-21 14:25] LABS: Heparin-Induced Plt Ab 0.161 OD (0.000-0.400)
== END 2018-07-20 17:00 | disposition hospice, inpatient (51) | DRG 853 ==
LOC: ED 16:35 → PCU 16:57 → ICU 07-16 06:27 → PCU 07-19 16:55
PROVIDERS: Internal Medicine; Internal Medicine Critical Care Medicine; Urology; Emergency Provider Emergency Medicine; Family Provider Internal Medicine; PCP Internal Medicine; Visit Provider Internal Medicine
PROC: 0T778DZ Dilation of Left Ureter with Intraluminal Device, Via Natural or Artificial Opening Endoscopic (ICD-10-PCS; principal; 2018-07-18 11:50)
DX: A41.59 Other Gram-negative sepsis (principal); R65.21 Severe sepsis with septic shock; J96.01 Acute respiratory failure with hypoxia; J15.6 Pneumonia due to other Gram-negative bacteria; N17.0 Acute kidney failure with tubular necrosis; I63.9 Cerebral infarction, unspecified; N10 Acute pyelonephritis; E87.0 Hyperosmolality and hypernatremia; E87.2 Acidosis; J44.1 Chronic obstructive pulmonary disease with (acute) exacerbation; J44.0 Chronic obstructive pulmonary disease with (acute) lower respiratory infection; N13.6 Pyonephrosis; I50.32 Chronic diastolic (congestive) heart failure; Z51.5 Encounter for palliative care; E87.5 Hyperkalemia; N40.0 Benign prostatic hyperplasia without lower urinary tract symptoms; Z87.442 Personal history of urinary calculi; Z79.01 Long term (current) use of anticoagulants; F17.210 Nicotine dependence, cigarettes, uncomplicated; G47.33 Obstructive sleep apnea (adult) (pediatric); I73.9 Peripheral vascular disease, unspecified; I25.10 Atherosclerotic heart disease of native coronary artery without angina pectoris; I48.0 Paroxysmal atrial fibrillation; D69.59 Other secondary thrombocytopenia; I99.8 Other disorder of circulatory system; I11.0 Hypertensive heart disease with heart failure; Z95.5 Presence of coronary angioplasty implant and graft; F32.9 Major depressive disorder, single episode, unspecified; E78.5 Hyperlipidemia, unspecified; K21.9 Gastro-esophageal reflux disease without esophagitis
CPT/HCPCS: 36415; 36600; 70450; 71045; 74174; 76000; 80048; 80053; 80076; 80202; 81001; 82803; 83605; 83735; 83880; 84100; 84484; 85014; 85018; 85025; 85027; 85610; 85730; 86022; 86850; 86900; 86965; 87040; 87077; 87086; 87088; 87186; 87449; 87493; 87633; 87641; 93005; 93925; 93930; 94002; 94003; 94640; 97162; 97165; 97530; 99285; 99406; J2185; J7030; J7040; J7050; J7120; P9035; Q9967; A4216; C1751; C1769; C2617; J0696; J1940; J2405